=== PATIENT | female | born 1940 | race Caucasian/White ===

== ENCOUNTER 2019-02-16 18:26 | Inpatient (IN) | payer OTHER ==
[2019-02-16] MEDS ORDERED: NA CHLORIDE 0.9% 1,000 ML ONE (20:17)
[2019-02-16 20:32] LABS: Absolute Lymphocytes (CBC) 2.1 K/uL (0.7-4.9); Absolute Monocytes 0.7 K/uL (0.1-1.3); Absolute Neutrophil 4.5 K/uL (1.8-8.0); Basophils % 0.6 % (0-1.3); Eosinophils % 2.9 % (0-4.4); Hematocrit 28.8 % (36.0-45.0); Lymphocytes % 28.4 % (15.3-44.8); MPV 9.9 fL (7.6-11.3); Monocytes % 8.7 % (3.3-12.3); RBC Red Blood Cell Count 2.97 M/uL (3.86-4.86)
[2019-02-16] MEDS ORDERED: LABETALOL 20 MG/4ML SYRINGE IV ONE (20:37)
[2019-02-16 21:03] LABS: Albumin 3.2 g/dL (3.4-5.0); Bilirubin Direct 0.2 mg/dL (0-0.2); Bilirubin Total 0.4 mg/dL (0.2-1.0); Protein, Total 6.6 g/dL (6.4-8.2)
--- NOTE | 2019-02-16 23:36 | ER ---
Nurse's Notes [facility] Name: Lucille Padron Age: 78 yrs Sex: Female : 1940 Arrival Date: 02/16/2019 Time: 18:26 Bed 5 Private MD: Isaias Henson S Diagnosis: Rectal bleeding. Colonic diverticulosis Presentation: 02/16 18:53 Presenting complaint: Patient states: i started Friday, passing blood from my bowel and hj now its blood clots; dark blood; denies abd pain, denies N/V;. Transition of care: patient was not received from another setting of care. Onset of symptoms was February 16, 2019. Risk Assessment: Do you want to hurt yourself or someone else? Patient reports no desire to harm self or others. Initial Sepsis Screen: Does the patient meet any 2 criteria? No. Patient's initial sepsis screen is negative. Does the patient have a suspected source of infection? No. Patient's initial sepsis screen is negative. Care prior to arrival: None. 18:53 Method Of Arrival: Ambulatory 18:53 Acuity: JONATHAN 3 hj Triage Assessment: 18:58 General: Appears in no apparent distress. uncomfortable, Behavior is calm, cooperative, hj appropriate for age. Pain: Complains of pain in abdomen. GI: Reports rectal bleeding, bloody stool. Historical: - Allergies: 18:57 No Known Allergies; hj - Home Meds: 18:57 carvedilol 12.5 mg oral tab 1 tab 2 times per day [Active]; pravastatin 80 mg oral tab hj 1 tab once daily [Active]; metformin 500 mg Oral tab 1 tab 2 times per day [Active]; tramadol 50 mg Oral tab 1 tab every 4-6 hours [Active]; aspirin 81 mg Oral TbEC 1 tab once daily [Active]; paroxetine HCl 40 mg oral tab 1 tab once daily [Active]; ranitidine HCl 150 mg Oral tab 1 tab nightly [Active]; fenofibrate 200 mg oral tab 1 cap once daily [Active]; - PMHx: 18:57 Hypertension; Diabetes - NIDDM; hj - Immunization history:: Adult Immunizations up to date. - Social history:: Smoking status: Patient/guardian denies using tobacco, Patient/guardian denies using alcohol. - Ebola Screening: : Patient negative for fever greater than or equal to 101.5 degrees Fahrenheit, and additional compatible Ebola Virus Disease symptoms Patient denies exposure to infectious person Patient denies travel to an Ebola-affected area in the 21 days before illness onset. Screenin:58 Abuse screen: Denies threats or abuse. Denies injuries from another. Nutritional hj screening: No deficits noted. Tuberculosis screening: No symptoms or risk factors identified. Fall Risk None identified. Assessment: 19:20 General: Appears in no apparent distress. comfortable, Behavior is calm, cooperative, tl2 appropriate for age. Pain: Denies pain. Neuro: Level of Consciousness is awake, alert, obeys commands, Oriented to person, place, time, situation. Cardiovascular: Denies chest pain. Respiratory: Airway is patent Respiratory effort is even, unlabored, Respiratory pattern is regular, symmetrical. GI: Abdomen is non-distended, Reports rectal bleeding, bloody stool, Patient currently denies abdominal pain, diarrhea, nausea, vomiting, pt reports having 3 episodes of bloody stool since Friday. Pt also reports that blood comes out even without having a BM. Derm: Skin is pink, warm \T\ dry. Musculoskeletal: Reports general weakness. 20:00 Reassessment: MD notified of elevated BP, new order see JAN. tl2 20:40 Reassessment: Follow-up BP 132/94, will hold additional 10 mg of Trandate. tl2 21:11 Reassessment: Patient appears in no apparent distress at this time. Patient and/or tl2 family updated on plan of care and expected duration. Pain level reassessed. Patient is alert, oriented x 3, equal unlabored respirations, skin warm/dry/pink. awaiting CT scan, no questions or complaints at this time. 22:02 Reassessment: BP is elevated at this time, will give additional 10 mg of Trandate that tl2 was held previously. 22:53 Reassessment: Patient appears in no apparent distress at this time. Patient and/or tl2 family updated on plan of care and expected duration. Pain level reassessed. Patient is alert, oriented x 3, equal unlabored respirations, skin warm/dry/pink. awaiting CT results. 22:54 Reassessment: notified of elevated BP, no new orders at this time. Pt denies any tl2 pain, headache or dizziness. 02/17 01:19 Reassessment: pt stable for transport to floor. tl2 Vital Signs: 02/16 18:58 Pulse 77; Resp 18; Temp 98.4(O); Pulse Ox 100% on R/A; Weight 79.38 kg; Height 5 ft. 4 hj in. (162.56 cm); Pain 2/10; 19:59 BP 195 / 87; Pulse 74; Resp 18; Pulse Ox 99% on R/A; tl2 20:37 BP 132 / 94; Pulse 68; Resp 18; Pulse Ox 99% on R/A; tl2 21:06 BP 162 / 89; Pulse 68; Resp 18; Pulse Ox 100% on R/A; tl2 22:01 BP 200 / 78; Pulse 68; Resp 18; Pulse Ox 99% on R/A; tl2 22:53 BP 207 / 87; Pulse 75; Resp 18; Pulse Ox 99% ; tl2 23:15 BP 189 / 81; Pulse 70; Resp 18; Pulse Ox 100% on R/A; tl2 02/17 00:42 BP 170 / 68; Pulse 71; Resp 18; Pulse Ox 100% on R/A; tl2 02/16 18:58 Body Mass Index 30.04 (79.38 kg, 162.56 cm) hj ED Course: 02/16 18:26 Patient arrived in ED. as 18:26 Isaias Henson MD is Private Physician. as 18:54 Triage completed. hj 18:58 Arm band placed on left wrist. hj 18:58 Patient has correct armband on for positive identification. Placed in gown. Bed in low hj position. Call light in reach. 19:20 Inserted saline lock: 20 gauge in right antecubital area, using aseptic technique. tl2 Blood collected. 19:46 Chapincito Boyle MD is Attending Physician. pkl 20:03 Sheree Diaz, JOSÉ is Primary Nurse. tl2 20:32 Oral contrast reported to be complete. vm2 22:[address] via stretcher. vm2 22:12 CT completed. Patient tolerated procedure well. Patient moved back from CT. vm2 22:28 CT Abd/Pelvis - W/Contrast In Process Unspecified. EDMS 23:34 Vandana Renae MD is Hospitalizing Provider. pkl 02/17 01:16 No provider procedures requiring assistance completed. Patient admitted, IV remains in ea place. Administered Medications: 02/16 20:09 Drug: NS 0.9% 1000 ml Route: IV; Rate: 125 ml/hr; Site: right antecubital; tl2 20:30 Drug: Trandate 20 mg {Note: gave 10 mg at 2030. will recheck in 10 minutes before tl2 giving additional 10 mg.} Route: IVP; Site: right antecubital; 20:38 Follow up: Foll[place]up BP 132/94, will hold additional 10 mg of trandate. tl2 22:22 Follow up: gave additional 10 mg of Trandate at 2222, will recheck BP in 10 minutes tl2 02/17 00:23 Drug: morphine 2 mg Route: IVP; Site: right antecubital; tl2 01:17 Follow up: Response: No adverse reaction; Pain is decreased ea 00:24 Drug: Zofran 4 mg Route: IVP; Site: right antecubital; tl2 01:00 Follow up: Response: No adverse reaction ea Intake: Outcome: 02/16 23:35 Decision to Hospitalize by Provider. [facility] 02/17 01:17 Condition: stable ea Instructed on the need for admit, Demonstrated understanding of instructions. 01:19 Admitted to Med/surg accompanied by tech, family with patient, via wheelchair, room tl2 230, with chart, Report called to MIROSLAVA Mohan 01:20 Patient left the ED. tl2 Signatures: Dispatcher [employer] EDMS Chapincito Boyle MD MD [facility] Heide Duarte Henry, RN RN Sheree Diaz RN RN 2 Tootie Penaloza [facility] Renetta Bojorquez RN RN ea Corrections: (The following items were deleted from the chart) 02/16 19:01 18:58 Pulse 77bpm; Resp 18bpm; Pulse Ox 100% RA; Temp 98.4F Oral; 79.38 kg; Height 5 hj ft. 4 in.; BMI: 30.0; Pain 2/10; hj 20:00 19:59 Pulse 74bpm; Resp 18bpm; Pulse Ox 99% RA; tl2 tl2
--- NOTE | 2019-02-16 23:36 | EDPHYS ---
Physician Documentation [facility] Name: Lucille Padron Age: 78 yrs Sex: Female : 1940 Arrival Date: 02/16/2019 Time: 18:26 Bed 5 Private MD: Isaias Henson S ED Physician Chapincito Boyle HPI: 02/16 20:07 This 78 yrs old Female presents to ER via Ambulatory with complaints of pkl Bloody Stools. 20:07 The patient presents to the emergency department with rectal bleeding, dark red blood pkl with bowel movement. Onset: The symptoms/episode began/occurred 3 day(s) ago. Abdominal pain: located in the right upper quadrant, left upper quadrant, right lower quadrant and left lower quadrant, that does not radiate. The patient has not experienced similar symptoms in the past. Historical: - Allergies: 18:57 No Known Allergies; hj - Home Meds: 18:57 carvedilol 12.5 mg oral tab 1 tab 2 times per day [Active]; pravastatin 80 mg oral tab hj 1 tab once daily [Active]; metformin 500 mg Oral tab 1 tab 2 times per day [Active]; tramadol 50 mg Oral tab 1 tab every 4-6 hours [Active]; aspirin 81 mg Oral TbEC 1 tab once daily [Active]; paroxetine HCl 40 mg oral tab 1 tab once daily [Active]; ranitidine HCl 150 mg Oral tab 1 tab nightly [Active]; fenofibrate 200 mg oral tab 1 cap once daily [Active]; - PMHx: 18:57 Hypertension; Diabetes - NIDDM; hj - Immunization history:: Adult Immunizations up to date. - Social history:: Smoking status: Patient/guardian denies using tobacco, Patient/guardian denies using alcohol. - Ebola Screening: : Patient negative for fever greater than or equal to 101.5 degrees Fahrenheit, and additional compatible Ebola Virus Disease symptoms Patient denies exposure to infectious person Patient denies travel to an Ebola-affected area in the 21 days before illness onset. ROS: 20:07 Eyes: Negative for injury, pain, redness, and discharge, ENT: Negative for injury, pkl pain, and discharge, Neck: Negative for injury, pain, and swelling, Cardiovascular: Negative for chest pain, palpitations, and edema, Respiratory: Negative for shortness of breath, cough, wheezing, and pleuritic chest pain. 20:07 Abdomen/GI: Positive for abdominal pain, of the right upper quadrant, left upper quadrant, right lower quadrant and left lower quadrant. 20:07 Back: Negative for acute changes. 20:07 : Negative for urinary symptoms. 20:07 MS/extremity: Negative for acute changes. 20:07 Skin: Negative for rash. 20:07 Neuro: Negative for altered mental status. Exam: 20:07 Head/Face: Normocephalic, atraumatic. Eyes: Pupils equal round and reactive to light, pkl extra-ocular motions intact. Lids and lashes normal. Conjunctiva and sclera are non-icteric and not injected. Cornea within normal limits. Periorbital areas with no swelling, redness, or edema. ENT: Nares patent. No nasal discharge, no septal abnormalities noted. Tympanic membranes are normal and external auditory canals are clear. Oropharynx with no redness, swelling, or masses, exudates, or evidence of obstruction, uvula midline. Mucous membranes moist. Neck: Trachea midline, no thyromegaly or masses palpated, and no cervical lymphadenopathy. Supple, full range of motion without nuchal rigidity, or vertebral point tenderness. No Meningismus. Chest/axilla: Normal chest wall appearance and motion. Nontender with no deformity. No lesions are appreciated. Cardiovascular: Regular rate and rhythm with a normal S1 and S2. No gallops, murmurs, or rubs. Normal PMI, no JVD. No pulse deficits. Respiratory: Lungs have equal breath sounds bilaterally, clear to auscultation and percussion. No rales, rhonchi or wheezes noted. No increased work of breathing, no retractions or nasal flaring. 20:07 Abdomen/GI: Bowel sounds: normal, Palpation: soft, mild abdominal tenderness, in all quadrants, Rectal exam: Stool: guaiac positive, the exam is chaperoned by the nurse. 20:07 Back: Exam negative for acute changes. 20:07 : Exam negative for acute changes. 20:07 Musculoskeletal/extremity: Exam is negative for acute changes. 20:07 Skin: Exam negative for rash. 20:07 Neuro: Exam negative for acute changes. Vital Signs: 18:58 Pulse 77; Resp 18; Temp 98.4(O); Pulse Ox 100% on R/A; Weight 79.38 kg; Height 5 ft. 4 hj in. (162.56 cm); Pain 2/10; 19:59 BP 195 / 87; Pulse 74; Resp 18; Pulse Ox 99% on R/A; tl2 20:37 BP 132 / 94; Pulse 68; Resp 18; Pulse Ox 99% on R/A; tl2 21:06 BP 162 / 89; Pulse 68; Resp 18; Pulse Ox 100% on R/A; tl2 22:01 BP 200 / 78; Pulse 68; Resp 18; Pulse Ox 99% on R/A; tl2 22:53 BP 207 / 87; Pulse 75; Resp 18; Pulse Ox 99% ; tl2 23:15 BP 189 / 81; Pulse 70; Resp 18; Pulse Ox 100% on R/A; tl2 02/17 00:42 BP 170 / 68; Pulse 71; Resp 18; Pulse Ox 100% on R/A; tl2 02/16 18:58 Body Mass Index 30.04 (79.38 kg, 162.56 cm) MDM: 02/16 19:46 Patient medically screened. pkl 23:33 Data reviewed: vital signs, nurses notes, lab test result(s), radiologic studies, CT pkl scan. ED course: Talked to Dr. Renae, will admit. 02/16 19:56 Order name: Basic Metabolic Panel; Complete Time: 21:16 pkl 02/16 19:56 Order name: CBC with Diff; Complete Time: 21:16 pkl 02/16 19:56 Order name: Creatinine for Radiology; Complete Time: 21:16 pkl 02/16 19:56 Order name: Hepatic Function; Complete Time: 21:16 pkl 02/16 19:56 Order name: Lipase; Complete Time: 21:16 pkl 02/16 19:56 Order name: Type And Screen pkl 02/16 21:29 Order name: ABO/RH no charge; Complete Time: 23:32 EDMS 02/17 00:23 Order name: Basic Metabolic Panel EDMS 02/17 00:23 Order name: Basic Metabolic Panel EDMS 02/17 00:23 Order name: Basic Metabolic Panel EDMS 02/17 00:23 Order name: CBC with Automated Diff EDMS 02/17 00:23 Order name: CBC with Automated Diff EDMS 02/17 00:23 Order name: CBC with Automated Diff EDMS 02/17 00:25 Order name: CBC with Automated Diff EDMS 02/16 19:58 Order name: CT Abd/Pelvis - W/Contrast pkl 02/17 00:23 Order name: CONS Pharmacy Consult EDMS 02/17 00:23 Order name: CONS Physician Consult EDMS 02/17 00:23 Order name: EKG Electrocardiogram EDMS 02/17 00:23 Order name: EKG Electrocardiogram EDMS 02/17 00:23 Order name: EKG Electrocardiogram EDMS 02/17 00:23 Order name: EKG Electrocardiogram EDMS 02/17 00:23 Order name: EKG Electrocardiogram EDMS 02/17 00:23 Order name: EKG Electrocardiogram EDMS 02/17 00:23 Order name: EKG Electrocardiogram EDMS 02/17 00:23 Order name: EKG Electrocardiogram EDMS 02/17 00:23 Order name: EKG Electrocardiogram EDMS 02/16 19:56 Order name: IV Saline Lock; Complete Time: 20:00 pkl 02/16 19:56 Order name: Labs collected and sent; Complete Time: 20:00 pkl 02/17 00:23 Order name: EKG Electrocardiogram EDMS 02/17 00:23 Order name: EKG Electrocardiogram EDMS Administered Medications: 20:09 Drug: NS 0.9% 1000 ml Route: IV; Rate: 125 ml/hr; Site: right antecubital; tl2 20:30 Drug: Trandate 20 mg {Note: gave 10 mg at 2030. will recheck in 10 minutes before tl2 giving additional 10 mg.} Route: IVP; Site: right antecubital; 20:38 Follow up: Follwup BP 132/94, will hold additional 10 mg of trandate. tl2 22:22 Follow up: gave additional 10 mg of Trandate at 2222, will recheck BP in 10 minutes tl2 02/17 00:23 Drug: morphine 2 mg Route: IVP; Site: right antecubital; tl2 01:17 Follow up: Response: No adverse reaction; Pain is decreased ea 00:24 Drug: Zofran 4 mg Route: IVP; Site: right antecubital; tl2 01:00 Follow up: Response: No adverse reaction ea Disposition: 02/16/19 23:35 Hospitalization ordered by Vandana Renae for Inpatient Admission. Preliminary diagnosis is Rectal bleeding. Colonic diverticulosis. - Bed requested for Telemetry/MedSurg (Inpatient). - Status is Inpatient Admission. tl2 - Condition is Stable. - Problem is new. - Symptoms are unchanged. UTI on Admission? No Signatures: Dispatcher [employer] EDMS Chapincito Boyle MD MD pkl Gary Buitrago, RN RN Migdalia Lopez RN RN Sheree Diaz RN RN [facility] Renetta Bojorquez RN RN Corrections: (The following items were deleted from the chart) 00:02/16 23:35 Hospitalization Ordered by Vandana Renae MD for Inpatient Admission. cg Preliminary diagnosis is Rectal bleeding. Colonic diverticulosis. Bed requested for Telemetry/MedSurg (Inpatient). Status is Inpatient Admission. Condition is Stable. Problem is new. Symptoms are unchanged. UTI on Admission? No. pkl 02/17 01:20 00:02/16/2019 23:35 Hospitalization Ordered by Vandana Renae MD for Inpatient tl2 Admission. Preliminary diagnosis is Rectal bleeding. Colonic diverticulosis. Bed requested for Telemetry/MedSurg (Inpatient). Status is Inpatient Admission. Condition is Stable. Problem is new. Symptoms are unchanged. UTI on Admission? No. cg
[2019-02-17] MEDS ORDERED: ONDANSETRON 4 MG/2 ML VIAL IV PRN (00:16)
[2019-02-17] MEDS ORDERED: MORPHINE 2 MG/ML SYR IV PRN (00:16)
[2019-02-17] MEDS ORDERED: MORPHINE 2 MG/ML SYR ONE (00:21)
[2019-02-17] MEDS ORDERED: ONDANSETRON 4 MG/2 ML VIAL ONE (00:21)
[2019-02-17] MEDS: PANTOPRAZOLE INJ 80 MG in NA CHLORIDE 0.9% 250 ML IV SCH ×3 (00:41→21:03)
[2019-02-17] MEDS: NA CHLORIDE 0.9% 1,000 ML IV SCH ×2 (00:41→14:20)
[2019-02-17] MEDS ORDERED: PANTOPRAZOLE 40 MG INJ ONE (00:48)
[2019-02-17] MEDS ORDERED: NA CHLORIDE 0.9% 250 ML IV SCH (01:00)
[2019-02-17 01:26] VITALS: BMI 30.2
[2019-02-17 04:24] LABS: Absolute Lymphocytes (CBC) 2.1 K/uL (0.7-4.9); Absolute Monocytes 0.7 K/uL (0.1-1.3); Absolute Neutrophil 4.1 K/uL (1.8-8.0); Basophils % 0.7 % (0-1.3); Eosinophils % 3.5 % (0-4.4); Hematocrit 22.8 % (36.0-45.0); Lymphocytes % 28.6 % (15.3-44.8); MPV 9.7 fL (7.6-11.3); Monocytes % 10.2 % (3.3-12.3); RBC Red Blood Cell Count 2.37 M/uL (3.86-4.86)
[2019-02-17 04:35] LABS: Potassium 4.1 mmol/L (3.5-5.1)
[2019-02-17 08:27] LABS: Urine Appearance CLEAR; Urine Bilirubin NEGATIVE (NEG); Urine Blood NEGATIVE (NEG); Urine Color YELLOW; Urine Glucose NEGATIVE (NEG); Urine Protein NEGATIVE (NEG); Urine Specific Gravity >=1.030 (1.005-1.030); Urine Urobilinogen 0.2 mg/dL (0.2-1.0)
[2019-02-17 08:30] LABS: Urine Microscopic Reflex ORDER UMIC
--- NOTE | 2019-02-17 09:18 | P.HP ---
Certification for Inpatient Patient admitted to: Inpatient With expected LOS: >2 Midnights Patient will require the following post-hospital care: None Practitioner: I am a practitioner with admitting privileges, knowledge of patient current condition, hospital course, and medical plan of care. Services: Services provided to patient in accordance with Admission requirements found in Title 42 Section 412.3 of the Code of Federal Regulations Patient History Date of Service: 02/17/19 Reason for admission: GI bleeding History of Present Illness: Patient is a 78yo who is admitted to the hospital with lower GI bleeding. Patient had bright red blood per rectum. This is been going on for the last few days. She says she noticed it on Friday. It progressed on Friday as well. She came to the emergency room for further evaluation. This is never happened to her before. In the emergency room, her hemoglobin was 9.6. Her blood pressure was stable. Hemodynamically she was stable as well. She was admitted to the hospital because she continued to have bright red blood per rectum in the emergency room. We will get gastroenterology consultation as well. Allergies No Known Allergies Allergy (Verified 02/17/19 01:26) Home Medications: Aspirin [Aspirin EC 81 MG] 1 mg PO DAILY 02/17/19 Carvedilol 12.5 mg PO BID 02/17/19 Fenofibrate,Micronized [Fenofibrate] 200 mg PO DAILY 02/17/19 Metformin HCl 500 mg PO BID 02/17/19 PARoxetine HCl [Paroxetine HCl] 40 mg PO DAILY 02/17/19 Pravastatin Sodium 80 mg PO DAILY 02/17/19 Ranitidine HCl [Zantac] 150 mg PO DAILY 02/17/19 traMADol HCL [Ultram*] 50 mg PO Q4HP PRN 02/17/19 - Past Medical/Surgical History Has patient received pneumonia vaccine in the past: Yes Diabetic: Yes -: HTN -: Diabetes -: eye surgery -: cholecystectomy -: partial hysterecomy - Family History Father Family History: Reviewed- Non-Contributory - Social History Smoking Status: Never smoker Alcohol use: No CD- Drugs: No Caffeine use: Yes Place of Residence: Home Review of Systems 10-point ROS is otherwise unremarkable Physical Examination - Vital Signs Temperature: 98.4 F Blood Pressure: 150/67 Pulse: 71 Respirations: 18 Pulse Ox (%): 99 - Physical Exam General: Alert, In no apparent distress, Oriented x3 HEENT: Atraumatic, PERRLA, Mucous membr. moist/pink, EOMI, Sclerae nonicteric Neck: Supple, 2+ carotid pulse no bruit, No LAD, Without JVD or thyroid abnormality Respiratory: Clear to auscultation bilaterally, Normal air movement Cardiovascular: Regular rate/rhythm, Normal S1 S2, No murmurs Gastrointestinal: Normal bowel sounds, Soft and benign, Non-distended, No tenderness Musculoskeletal: No clubbing, No swelling, No tenderness Integumentary: No rashes Neurological: Normal gait, Normal speech, Normal strength at 5/5 x4 extr, Normal tone, Sensation intact, Cranial nerves 3-12 intact, Normal affect Lymphatics: No axilla or inguinal lymphadenopathy - Studies Laboratory Data (last 24 hrs) 02/17/19 00:23: WBC Cancelled, Hgb Cancelled, Hct Cancelled, Plt Count Cancelled 02/16/19 19:45: Creatinine 1.26 02/16/19 19:45: WBC 7.5, Hgb 9.6 L, Hct 28.8 L, Plt Count 224 02/16/19 19:45: Sodium 144, Potassium 4.0, BUN 26 H, Creatinine 1.27, Glucose 120 H, Total Bilirubin 0.4, AST 27, ALT 22, Alkaline Phosphatase 49, Lipase 221 Assessment & Plan - Problems (Diagnosis) (1) GIB (gastrointestinal bleeding) Current Visit: Yes Status: Acute (2) HTN (hypertension) Current Visit: Yes Status: Acute (3) DM2 (diabetes mellitus, type 2) Current Visit: Yes Status: Acute - Plan Plan: 1. Continue with IV hydration and PPI drip 2. Strict blood pressure and blood sugar control 3. Continue with pain control 4. NPO 5. GI consultation 6. Serial H&H, and we will monitor LFTs and lipase along with electrolytes. 7. GI and DVT prophylaxis Discharge Plan: Home Plan to discharge in: Greater than 2 days - Advance Directives Does patient have a Living Will: Yes Does patient have a Durable POA for Healthcare: No - Code Status/Comfort Care Code Status Assessed: Yes Code Status: Full Code Critical Care: No Time Spent Managing PTS Care (In Minutes): 40
[2019-02-17 09:30] LABS: Urine Bacteria NONE SEEN /HPF (<20); Urine Culture Reflex Order REFLEXED; Urine Mucus NS /HPF (NONE SEEN); Urine RBC <5 /HPF (NONE SEEN)
[2019-02-17 09:39] LABS: Hematocrit 22.3 % (36.0-45.0)
--- NOTE | 2019-02-17 11:50 | RAD REPORT ---
EXAM DESCRIPTION: CT - Abdomen Pelvis W Contrast - 02/17/2019 4:22 am CLINICAL HISTORY: The patient is 78 years old and is Female; rectal bleeding TECHNIQUE: Axial computed tomography images of the abdomen and pelvis with intravenous contrast. S agittal and coronal reformatted images were created and reviewed. This CT exam was performed using one or more of the following dose reduction techniques: automated exposure control, adjustment of t he mA and/or kV according to patient size, and/or use of iterative reconstruction technique. COMPARISON: No relevant prior studies available. FINDINGS: LUNG BASES: Unremarkable. No mass. No consolidation. MEDIASTINUM: A small hiatal hernia is present. ABDOMEN: LIVER: Unremarkable. No mass. GALLBLADDER AND BILE DUCTS: Surgical clips are present in the right upper quadrant, consistent w ith previous cholecystectomy. PANCREAS: The pancreas is atrophic. SPLEEN: Unremarkable. ADRENALS: Unremarkable. No mass. KIDNEYS AND URETERS: Unremarkable. No solid mass. No hydronephrosis. STOMACH AND BOWEL: The stomach is distended with oral contrast. A proximal duodenal diverticulum is noted without surrounding inflammation. Contrast is present throughout the small bowel which is n ormal in caliber. Contrast and stool are present throughout the colon. There is no mucosal thickening or evidence of bowel obstruction. Scattered colonic diverticula are present without surrounding infl ammation. PELVIS: APPENDIX: The appendix is normal in caliber without surrounding inflammation. BLADDER: The bladder is not well distended. REPRODUCTIVE: The patient is status post hysterectomy. ABDOMEN and PELVIS: INTRAPERITONEAL SPACE: Unremarkable. No free air. No significant fluid collection. BONES/JOINTS: Mild multilevel degenerative change of the spine is present. SOFT TISSUES: There are small bilateral fat containing inguinal hernias. VASCULATURE: Atherosclerosis of the vasculature is present. The vessels are normal in caliber. No abdominal aortic aneurysm. LYMPH NODES: Unremarkable. No enlarged lymph nodes. IMPRESSION: 1. Colonic diverticulosis. No bowel obstruction. No findings to suggest diverticulitis . 2. Chronic findings as detailed above. Electronically signed by: Kristal Aguirre MD 02/16/2019 10:37 PM CDT Due to temporary technical issues with the PACS/Fluency reporting system, reports are being signed by the in house radiologist as a courtesy to ensure prompt reporting. The interpreting radiologist is f ully responsible for the content of the report.
[2019-02-17] MEDS ORDERED: NA CHLORIDE 0.9% 250 ML ONE (12:19)
[2019-02-17 12:29] LABS: Hematocrit 25.1 % (36.0-45.0)
[2019-02-17 13:22] LABS: Protime INR 1.07
[2019-02-17] MEDS: CARVEDILOL 12.5 MG TAB PO SCH (20:58)
[2019-02-17] MEDS: ATORVASTATIN 10 MG TAB PO SCH (20:58)
[2019-02-17] MEDS ORDERED: FUROSEMIDE 20 MG/ 2ML VIAL IV ONE (21:52)
[2019-02-17] MEDS ORDERED: cloNIDine HCl 0.1 MG TAB PO ONE (21:53)
[2019-02-18] MEDS ORDERED: NA CHLORIDE 0.9% 250 ML ONE (01:27)
[2019-02-18] MEDS ORDERED: FUROSEMIDE 20 MG/ 2ML VIAL IV ONE (01:53)
[2019-02-18] MEDS: NA CHLORIDE 0.9% 1,000 ML IV SCH (04:52)
[2019-02-18] MEDS ORDERED: HEPARIN 500 UNIT/5 ML SYR IV ONE (05:56)
[2019-02-18 06:18] LABS: Absolute Lymphocytes (CBC) 1.8 K/uL (0.7-4.9); Absolute Monocytes 0.7 K/uL (0.1-1.3); Absolute Neutrophil 3.6 K/uL (1.8-8.0); Basophils % 0.9 % (0-1.3); Eosinophils % 3.2 % (0-4.4); Lymphocytes % 27.9 % (15.3-44.8); MPV 9.8 fL (7.6-11.3); Monocytes % 11.4 % (3.3-12.3)
[2019-02-18 06:58] LABS: Anisocytosis 1+; Blood Morphology Comment NOTED (NOT SEEN); Platelet Estimate ADEQ; Urine White Blood Cell Casts OK
[2019-02-18] MEDS: PANTOPRAZOLE INJ 80 MG in NA CHLORIDE 0.9% 250 ML IV SCH ×4 (07:00→23:39)
[2019-02-18 08:41] LABS: Potassium 4.1 mmol/L (3.5-5.1)
[2019-02-18] MEDS ORDERED: HOME MED 1 EA UNK (Fenofibrate,Micronized [Fenofibrate] 200 MG) PO SCH (09:00)
--- NOTE | 2019-02-18 09:45 | RAD REPORT ---
EXAM DESCRIPTION: NM - GI Blood Loss Imaging - 02/18/2019 9:24 am CLINICAL HISTORY: Gastrointestinal bleeding COMPARISON: None. TECHNIQUE: The patient was administered 26.4 millicuries technetium labeled red blood cells. Dynamic images of the abdomen and pelvis were obtained for 60 minutes FINDINGS: No abnormal radiotracer activity is seen within the bowel. No abnormality displayed IMPRESSION: No evidence of active gastrointestinal bleeding during the examination
[2019-02-18] MEDS: PARoxetine HCl 10 MG TAB PO SCH (10:48)
[2019-02-18] MEDS: ACETAMINOPHEN 500 MG TAB PO PRN ×2 (10:48→16:58)
[2019-02-18] MEDS: METOPROLOL TAR 50 MG TAB PO SCH ×2 (10:49→20:51)
[2019-02-18] MEDS: CARVEDILOL 12.5 MG TAB PO SCH ×2 (10:49→20:51)
[2019-02-18] MEDS: RANITIDINE 150 MG TABLET PO SCH (10:49)
[2019-02-18] MEDS: METOCLOPRAMIDE 10 MG/2mL INJ IV SCH ×3 (10:50→23:38)
[2019-02-18] MEDS ORDERED: GOLYTELY 4000 ML PO SCH (11:00)
[2019-02-18] MEDS ORDERED: MAGNESIUM CITRATE 300 ML BOT PO SCH (11:00)
--- NOTE | 2019-02-18 11:03 | RAD REPORT ---
EXAM DESCRIPTION: Shoulder Right 2 View - 02/18/2019 10:32 am CLINICAL HISTORY: Right shoulder pain COMPARISON: None. TECHNIQUE: Internal and external rotation views of the right shoulder were obtained. FINDINGS: There is no fracture or dislocation. Degenerative cystic changes are present in the super olateral humeral head. AC joint degenerative changes are present primarily involving the undersurface of the acromion. Acromial humeral joint space is significantly narrowed and the patient may have chr onic supraspinatus rotator cuff tear. No suspicious soft tissue calcifications. No significant findin g in the upper right chest or rib cage. IMPRESSION: No fracture, dislocation or acute bone or joint finding of the right shoulder. AC joint degenerative changes and acromion degenerative changes are present. Suspected chronic full-thickness rotator cuff tear.
--- NOTE | 2019-02-18 11:27 | P.PN ---
Subjective Date of Service: 02/18/19 Chief Complaint: GI bleeding Patient seen and examined at bedside with RN. Chart reviewed. Case discussed with GI. Patient is currently planned for colonoscopy tomorrow. Still continues to have blood while wiping after a bowel movement or urination. Hemoglobin stable at this time. Denies having a shortness of breath or chest pain at this time Review of Systems 10-point ROS is otherwise unremarkable Physical Examination - Vital Signs Temperature: 96.8 F Blood Pressure: 148/66 Pulse: 66 Respirations: 18 Pulse Ox (%): 98 - Physical Exam General: Alert, In no apparent distress HEENT: Atraumatic, PERRLA, EOMI Neck: Supple, JVD not distended Respiratory: Clear to auscultation bilaterally, Normal air movement Cardiovascular: Regular rate/rhythm, Normal S1 S2 Gastrointestinal: Normal bowel sounds, No tenderness Musculoskeletal: Tenderness (Right Shoulder Tenderness. Limited ROM ) Integumentary: No rashes Neurological: Normal speech, Normal tone, Normal affect Lymphatics: No axilla or inguinal lymphadenopathy - Studies Medications List Reviewed: Yes Assessment And Plan - Current Problems (Diagnosis) (1) GIB (gastrointestinal bleeding) Current Visit: Yes Status: Acute Plan: Acute blood loss anemia most likely secondary to lower GI bleeding secondary to hemorrhoids -GI consulted. Appreciated recommendations -RBC scan negative for acute GI bleeding -patient is scheduled for colonoscopy tomorrow -IV Protonix drip till then -monitor H&H closely and transfuse as necessary -currently status post 2 PRBC Qualifiers: GI bleed type/associated pathology: melena Qualified Code(s): K92.1 - Melena (2) Shoulder pain Current Visit: Yes Status: Chronic Plan: Patient complaining of right shoulder pain -x-ray consistent with chronic rotator cuff -physical therapy consulted will provide sling as well Qualifiers: Chronicity: chronic Laterality: right Qualified Code(s): M25.511 - Pain in right shoulder; G89.29 - Other chronic pain (3) DM2 (diabetes mellitus, type 2) Current Visit: Yes Status: Chronic Plan: Accu-Cheks and insulin sliding scale Qualifiers: 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
[2019-02-18 14:41] LABS: Hematocrit 30.6 % (36.0-45.0)
[2019-02-18] MEDS ORDERED: HYDRALAZINE HCL 20 MG/ML VIAL IV ONE (16:47)
[2019-02-18] MEDS: ATORVASTATIN 10 MG TAB PO SCH (20:52)
--- NOTE | 2019-02-19 06:17 | EKG ---
Test Date: 2019-02-18 Test Time: 11:50:44 College Service Officer: ANTHONY MEASUREMENT RESULTS: Intervals: Rate: 71 SC: 144 QRSD: 82 QT: 422 QTc: 458 [place]: P: 34 SC: 144 QRS: 43 T: 35 INTERPRETIVE STATEMENTS: Normal sinus rhythm Normal ECG Compared to ECG 11/27/2011 02:25:28 No significant changes Electronically Signed On 02-19-19 06:16:18 CDT by Pancho Cook
[2019-02-19] MEDS: FENOFIBRATE 200 MG PO SCH (08:00)
[2019-02-19] MEDS: METOPROLOL TAR 50 MG TAB PO SCH ×2 (08:44→20:49)
[2019-02-19] MEDS: CARVEDILOL 12.5 MG TAB PO SCH ×2 (08:44→20:49)
[2019-02-19] MEDS: RANITIDINE 150 MG TABLET PO SCH (08:46)
[2019-02-19] MEDS: PARoxetine HCl 10 MG TAB PO SCH (08:46)
--- NOTE | 2019-02-19 13:26 | P.PN ---
Subjective Date of Service: 02/19/19 Chief Complaint: GI bleeding Patient seen and examined at bedside with RN. Chart reviewed. Case discussed with GI. Patient is currently planned for colonoscopy today. No blood noted in urination and BM. Hemoglobin stable at this time. Denies having a shortness of breath or chest pain at this time Review of Systems 10-point ROS is otherwise unremarkable Physical Examination - Vital Signs Temperature: 97.4 F Blood Pressure: 195/86 Pulse: 76 Respirations: 16 Pulse Ox (%): 95 - Physical Exam General: Alert, In no apparent distress HEENT: Atraumatic, PERRLA, EOMI Neck: Supple, JVD not distended Respiratory: Clear to auscultation bilaterally, Normal air movement Cardiovascular: Regular rate/rhythm, Normal S1 S2 Gastrointestinal: Normal bowel sounds, No tenderness Musculoskeletal: No tenderness Integumentary: No rashes Neurological: Normal speech, Normal tone, Normal affect Lymphatics: No axilla or inguinal lymphadenopathy - Studies Medications List Reviewed: Yes Assessment And Plan - Current Problems (Diagnosis) (1) GIB (gastrointestinal bleeding) Current Visit: Yes Status: Acute Plan: Acute blood loss anemia most likely secondary to lower GI bleeding secondary to hemorrhoids -GI consulted. Appreciated recommendations -RBC scan negative for acute GI bleeding -patient is scheduled for colonoscopy today -IV Protonix BID now -monitor H&H closely and transfuse as necessary -currently status post 2 PRBC Qualifiers: GI bleed type/associated pathology: melena Qualified Code(s): K92.1 - Melena (2) Shoulder pain Current Visit: Yes Status: Chronic Plan: Patient complaining of right shoulder pain -x-ray consistent with chronic rotator cuff -physical therapy consulted will provide sling as well -MRI ordered Qualifiers: Chronicity: chronic Laterality: right Qualified Code(s): M25.511 - Pain in right shoulder; G89.29 - Other chronic pain (3) DM2 (diabetes mellitus, type 2) Current Visit: Yes Status: Chronic Plan: Accu-Cheks and insulin sliding scale Qualifiers: 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
[2019-02-19] MEDS ORDERED: NA CHLORIDE 0.9% 1,000 ML ONE (13:51)
[2019-02-19] MEDS ORDERED: LIDOCAINE 1% MPF 5 ML VIAL ONE (15:37)
[2019-02-19] MEDS ORDERED: PROPOFOL 200 MG/20 ML VIAL IV ONE (15:37)
--- NOTE | 2019-02-19 20:04 | RAD REPORT ---
EXAM DESCRIPTION: MRI - Shoulder Rt Wo Cont - 02/19/2019 6:10 pm CLINICAL HISTORY: Shoulder pain, fall COMPARISON: None. TECHNIQUE: Axial proton density fat saturation, parasagittal T1 weighted and para coronal proton den sity, T2 and T2 fat saturation weighted sequences were obtained. FINDINGS: Exam has significant motion degradation limitation. No occult fracture, bone bruise or marrow replacing process. Mild marginal spurring seen at the humer al head. AC joint degenerative changes are present. Acromial humeral joint space is effaced. There is degenerative concave contour to the undersurface of the acromion. AC joint degenerative changes are present with capsular hypertrophy and a small inferiorly directed spur. Full-thickness supraspinatus rotator cuff tear is present with the tendon retracted several cm to the AC joint level. Subscapularis and infraspinatus tendons are intact. Biceps tendon is difficult to follow along its co urse due to motion. Glenoid labrum degenerative changes are present. IMPRESSION: Full-thickness supraspinatus rotator cuff tear with no remnant tendon at the insertion. Tendon is retracted to the AC joint line level. AC joint and acromion degenerative changes. Acromial humeral joint space is effaced. No fracture or acute bone finding.
[2019-02-19] MEDS: ATORVASTATIN 10 MG TAB PO SCH (20:49)
[2019-02-19] MEDS: PANTOPRAZOLE 40 MG INJ IVP SCH (20:49)
[2019-02-19] MEDS: SODIUM CHLORIDE 0.9% 10ML INJ IV SCH (20:49)
--- NOTE | 2019-02-19 21:04 | ENDO RPT ---
[address], [address] EGD PROCEDURE REPORT EXAM DATE: 02/19/2019 PATIENT NAME: Lucille Padron MR#: [id number] BIRTHDATE: 1940 ATTENDING: Devante Slaughter Dr STATUS: inpatient - [facility] EXECUTIVE MANAGER: Valencia Treviño and Sandra Rascon RN INDICATIONS: The patient is a 78 yr old Female here for an EGD due to mid epigastric abdominal pain and GERD PROCEDURE PERFORMED: EGD with biopsy MEDICATIONS: Per Anesthesia. TOPICAL ANESTHETIC: none CONSENT: The patient understands the risks and benefits of the procedure and understands that these risks include, but are not limited to: sedation, allergic reaction, infection, perforation and/or bleeding. Alternative means of evaluation and treatment include, among others: physical exam, x-rays, and/or surgical intervention. The patient elects to proceed with this endoscopic procedure. DESCRIPTION OF PROCEDURE: During intra-op preparation period all mechanical medical equipment was checked for proper function. Hand hygiene and appropriate measures for infection prevention was taken. Procedure, possible complications, and alternatives including but not limited to the possibility of bleeding, perforation, tear, infection, sepsis, need for surgery, need for blood transfusion, and anesthesia related complications were explained to the patient. After the risks, benefits and alternatives of the procedure were thoroughly explained, Informed consent was verified, confirmed and timeout was successfully executed by the treatment team. The patient was placed in the left lateral position. The patient was anesthetized with topical anesthesia. Through the anesthetized oropharyngeal area, the scope was passed without any difficulty. The [id number] ([id number]) endoscope was introduced through the mouth and advanced to the second portion of the duodenum. Retroflexed views revealed no abnormalities. The gastroscope was then slowly withdrawn and removed. The upper, middle, and distal third of the esophagus were carefully inspected and no abnormalities were noted. The z-line was well seen at the GEJ. The endoscope was pushed into the fundus which was normal including a retroflexed view. The antrum, first and second part of the duodenum were unremarkable. Multiple biopsies were obtained and sent to pathology. The stomach was entered and closely examined. The antrum, angularis, and lesser curvature were well visualized, including a retroflexed view of the cardia and fundus. The stomach wall was normally distensable. The scope passed easily through the pylorus into the duodenum. Multiple biopsies were obtained and sent to pathology. ADVERSE EVENTS: There were no complications. IMPRESSIONS: 1. Normal EGD 2. Gastric biopsies for non-ulcer dyspepsia RECOMMENDATIONS: await biopsy results REPEAT EXAM: Devante Slaughter Dr eSigned: Devante Slaughter Dr 02/19/2019 4:15 PM cc: CPT CODES: ICD9 CODES: PATIENT NAME: Lucille aPdron MR#: [id number]
--- NOTE | 2019-02-19 21:04 | ENDO RPT ---
[address], [address] COLONOSCOPY PROCEDURE REPORT EXAM DATE: 02/19/2019 PATIENT NAME: Lucille Padron MR #: [id number] BIRTHDATE: 1940 ATTENDING: Devante Slaughter Dr STATUS: inpatient - 7 PRODUCT OPERATIONS ASSOCIATE: Valencia Treviño and Sandra Rascon RN INDICATIONS: The patient is a 78 yr old Female here for a colonoscopy due to hematochezia and RLQ/LLQ abdominal pain PROCEDURE PERFORMED: Colonoscopy MEDICATIONS: Per Anesthesia. ESTIMATED BLOOD LOSS: None CONSENT: The patient understands the risks and benefits of the procedure and understands that these risks include, but are not limited to: sedation, allergic reaction, infection, perforation and/or bleeding. Alternative means of evaluation and treatment include, among others: physical exam, x-rays, and/or surgical intervention. The patient elects to proceed with this endoscopic procedure. DESCRIPTION OF PROCEDURE: During intra-op preparation period all mechanical medical equipment was checked for proper function. Hand hygiene and appropriate measures for infection prevention was taken. Procedure, possible complications, alternatives including, but not limited to possibility of bleeding, perforation, tear, infection, sepsis, need for surgery, need for blood transfusion, were explained to the patient. After the risks, benefits and alternatives of the procedure were thoroughly explained, Informed consent was verified, confirmed and timeout was successfully executed by the treatment team. The patient was placed in the left lateral position. A digital rectal exam was performed and revealed external hemorrhoids. After appropriate level of anesthesia, the scope was passed. The [id number] ([id number]) and [id number] ([id number]) endoscope was introduced through the anus and advanced to the terminal ileum which was intubated for a short distance. The quality of the prep was fair. The instrument was then slowly withdrawn as the colon was fully examined. Scope withdrawal time was 8 minutes. COLON FINDINGS: Mild diverticulosis was noted in the left colon. Small internal and external hemorrhoids were found. Retroflexed views revealed no abnormalities. The scope was then completely withdrawn from the patient and the procedure terminated. ADVERSE EVENTS: There were no complications. IMPRESSIONS: 1. Mild diverticulosis in the left colon 2. Small internal and external hemorrhoids 3. Intubation to terminal ileum RECOMMENDATIONS: 1. hemorrhoidal hygiene 2. fiber rich diet 3. Small Bowel Follow Through 4. pillcam / capsule endoscopy RECALL: Devante Slaughter Dr eSigned: Devante Slaughter Dr 02/19/2019 4:27 PM cc: CPT CODES: ICD9 CODES: 455.5 External hemorrhoids with other complication PATIENT NAME: Lucille Padron MR#: [id number]
[2019-02-19 21:36] VITALS: O2SAT 96
[2019-02-20] MEDS: CARVEDILOL 12.5 MG TAB PO SCH (05:27)
[2019-02-20 09:20] VITALS: BP 156/72; TEMP 96.8
[2019-02-20] MEDS: PARoxetine HCl 10 MG TAB PO SCH (09:41)
[2019-02-20] MEDS: METOPROLOL TAR 50 MG TAB PO SCH (09:41)
[2019-02-20] MEDS: PANTOPRAZOLE 40 MG INJ IVP SCH (09:42)
[2019-02-20] MEDS: FENOFIBRATE 200 MG PO SCH (09:42)
[2019-02-20] MEDS: SODIUM CHLORIDE 0.9% 10ML INJ IV SCH (09:43)
--- NOTE | 2019-02-20 11:38 | P.DS ---
Admission Date: 02/17/19 Discharge Date: 02/20/19 Disposition: ROUTINE DISCHARGE Discharge Condition: GOOD Reason for Admission: GI bleeding Consultations: GI Procedures: Colonoscopy - Problems (1) GIB (gastrointestinal bleeding) Current Visit: Yes Status: Acute Qualifiers: GI bleed type/associated pathology: diverticulosis Qualified Code(s): K57.91 - Diverticulosis of intestine, part unspecified, without perforation or abscess with bleeding (2) Shoulder pain Current Visit: Yes Status: Chronic Qualifiers: Chronicity: chronic Laterality: right Qualified Code(s): M25.511 - Pain in right shoulder; G89.29 - Other chronic pain (3) DM2 (diabetes mellitus, type 2) Current Visit: Yes Status: Chronic Qualifiers: Diabetes mellitus fci insulin use: without termite inspector use Diabetes mellitus complication status: without complication Qualified Code(s): E11.9 - Type 2 diabetes mellitus without complications (4) HTN (hypertension) Current Visit: Yes Status: Chronic Qualifiers: Hypertension type: essential hypertension Qualified Code(s): I10 - Essential (primary) hypertension Brief History of Present Illness: Patient is a 78yo who is admitted to the hospital with lower GI bleeding. Patient had bright red blood per rectum. This is been going on for the last few days. She says she noticed it on Friday. It progressed on Friday as well. She came to the emergency room for further evaluation. This is never happened to her before. In the emergency room, her hemoglobin was 9.6. Her blood pressure was stable. Hemodynamically she was stable as well. She was admitted to the hospital because she continued to have bright red blood per rectum in the emergency room. We will get gastroenterology consultation as wel Hospital Course: Overall during the hospital stay patient remained stable Patient was initially admitted to the hospital for bright red blood per rectum. GI was consulted. Patient was prepped for colonoscopy. Initial hemoglobin was less than 7 and patient was transfused total of 2 units while here in the hospital. Patient's hemoglobin remained stable after transfusion. Patient was also started on IV Protonix while here in the hospital. After patient was hemodynamically stable and hemoglobin was stable patient was taken down for colonoscopy. Patient was found to have several diverticulosis along with external hemorrhoids which is most likely the cause of her bright red blood per rectum. Patient tolerated the procedure well and was returned back to the regular floor. Postprocedure patient did well his hemoglobin still remains stable and thus was switched over to p.o. Protonix. Patient then was discharged home per GI is recommendation was asked to follow up with GI in about 1-2 days post discharge. While here in the hospital patient complained of having right shoulder pain and thus x-ray and MRI was done which was consistent with full-thickness tear of the rotator cuff with no tendon attachment. Patient was provided with outpatient ortho consulted and was asked to follow up with orthopedics in about 1-2 days post discharge as well. Vital Signs/Physical Exam: Temp Pulse Resp BP Pulse Ox 96.8 F 72 18 156/72 H 94 02/20/19 08:00 02/20/19 09:41 02/20/19 00:00 02/20/19 09:41 02/20/19 08:00 General: Alert, In no apparent distress HEENT: Atraumatic, PERRLA, EOMI Neck: Supple, JVD not distended Respiratory: Clear to auscultation bilaterally, Normal air movement Cardiovascular: Regular rate/rhythm, Normal S1 S2 Gastrointestinal: Normal bowel sounds, No tenderness Musculoskeletal: Tenderness (Right shoulder with pain) Integumentary: No rashes Neurological: Normal speech, Normal tone, Normal affect Lymphatics: No axilla or inguinal lymphadenopathy Laboratory Data at Discharge: WBC 6.3 K/uL (4.3-10.9) 02/18/19 05:47 Hgb 10.3 g/dL (12.0-15.0) L 02/18/19 14:27 Hct 30.6 % (36.0-45.0) L 02/18/19 14:27 Plt Count 196 K/uL (152-406) 02/18/19 05:47 PT 12.6 SECONDS (9.5-12.5) H 02/17/19 12:40 INR 1.07 02/17/19 12:40 APTT 28.1 SECONDS (24.3-36.9) 02/17/19 12:40 Sodium 147 mmol/L (136-145) H 02/18/19 05:47 Potassium 4.1 mmol/L (3.5-5.1) 02/18/19 05:47 BUN 20 mg/dL (7-18) H 02/18/19 05:47 Creatinine 1.12 mg/dL (0.55-1.3) 02/18/19 05:47 Glucose 96 mg/dL (74-106) 02/18/19 05:47 Total Bilirubin 0.4 mg/dL (0.2-1.0) 02/16/19 19:45 AST 27 U/L (15-37) 02/16/19 19:45 ALT 22 U/L (12-78) 02/16/19 19:45 Alkaline Phosphatase 49 U/L (45-117) 02/16/19 19:45 Lipase 221 U/L (73-393) 02/16/19 19:45 Home Medications: Aspirin [Aspirin EC 81 MG] 1 mg PO DAILY 02/17/19 Carvedilol 12.5 mg PO BID 02/17/19 Fenofibrate,Micronized [Fenofibrate] 200 mg PO DAILY 02/17/19 Metformin HCl 500 mg PO BID 02/17/19 PARoxetine HCl [Paroxetine HCl] 40 mg PO DAILY 02/17/19 Pravastatin Sodium 80 mg PO DAILY 02/17/19 Ranitidine HCl [Zantac] 150 mg PO DAILY 02/17/19 traMADol HCL [Ultram*] 50 mg PO Q4HP PRN 02/17/19 Pantoprazole Sodium [Protonix] 40 mg PO DAILY #30 tablet. 02/20/19 New Medications: Pantoprazole Sodium [Protonix] 40 mg PO DAILY #30 tablet. Patient Discharge Instructions: Please f.u with PCP and GI in 1 to 2 days post discharge. New medication. Protonix 40mg Daily. Hold ASA for next 3 days and then restart it again Diet: Regular Activity: Ad dawson Followup: Devante Slaughter MD [ASSOCIATE-ACTIVE - CAN ADMIT] - 1 Week
--- NOTE | 2019-02-20 12:51 | P.PN ---
Subjective Date of Service: 02/20/19 Chief Complaint: GI bleeding Subjective: Improving (No blood seen by patient. Feels well and wants to go home, stating she was to have blood count checked. Tolerating po diet. Diverticulosis and hemorrhoids noted on colonoscopy. EGD was normal.) Review of Systems 10-point ROS is otherwise unremarkable General: Weakness (Improved. ) Physical Examination - Vital Signs Temperature: 96.8 F Blood Pressure: 156/72 Pulse: 72 Respirations: 18 Pulse Ox (%): 94 - Physical Exam General: Alert, In no apparent distress, Oriented x3, Cooperative HEENT: Atraumatic, Normocephalic, PERRLA, EOMI Neck: Supple Respiratory: Normal air movement Cardiovascular: Normal pulses Gastrointestinal: Soft and benign, No tenderness, No rebound, No guarding Neurological: Normal speech, Normal strength at 5/5 x4 extr - Studies Medications List Reviewed: Yes Assessment And Plan - Current Problems (Diagnosis) (1) Hematochezia Current Visit: Yes Status: Acute Comment: Though secondary to diverticular bleed and possibly hemorrhoids. (2) GERD (gastroesophageal reflux disease) Current Visit: Yes Status: Acute (3) Epigastric abdominal pain Current Visit: Yes Status: Acute (4) RLQ abdominal pain Current Visit: Yes Status: Acute (5) LLQ abdominal pain Current Visit: Yes Status: Acute (6) GIB (gastrointestinal bleeding) Current Visit: Yes Status: Acute Qualifiers: GI bleed type/associated pathology: diverticulosis Qualified Code(s): K57.91 - Diverticulosis of intestine, part unspecified, without perforation or abscess with bleeding - Plan REC: 1) check hgb 2) okay to discharge if hgb stable with GI clinic f/u in 1-2 weeks
[2019-02-20 13:22] LABS: Absolute Lymphocytes (CBC) 1.5 K/uL (0.7-4.9); Absolute Monocytes 0.8 K/uL (0.1-1.3); Absolute Neutrophil 5.6 K/uL (1.8-8.0); Basophils % 0.9 % (0-1.3); Eosinophils % 1.1 % (0-4.4); Hematocrit 30.7 % (36.0-45.0); Lymphocytes % 18.6 % (15.3-44.8); MPV 9.3 fL (7.6-11.3); Monocytes % 9.3 % (3.3-12.3); RBC Red Blood Cell Count 3.42 M/uL (3.86-4.86)
== END 2019-02-20 14:45 | disposition home or self-care (01) | DRG 378 ==
LOC: ER 18:26 → ERHOLD 02-17 00:31 → 2ND 02-17 00:51
PROVIDERS: ADMIT Hospitalist; ATTEND Family Medicine
PROC: 30233N1 Transfusion of Nonautologous Red Blood Cells into Peripheral Vein, Percutaneous Approach (ICD-10-PCS; 2019-02-19)
PROC: 0DB68ZX Excision of Stomach, Via Natural or Artificial Opening Endoscopic, Diagnostic (ICD-10-PCS; principal; 2019-02-19 13:30)
PROC: 0DJD8ZZ Inspection of Lower Intestinal Tract, Via Natural or Artificial Opening Endoscopic (ICD-10-PCS; 2019-02-19 13:30)
DX: K57.91 Diverticulosis of intestine, part unspecified, without perforation or abscess with bleeding (principal); D62 Acute posthemorrhagic anemia; E11.9 Type 2 diabetes mellitus without complications; I10 Essential (primary) hypertension; K64.4 Residual hemorrhoidal skin tags; M75.121 Complete rotator cuff tear or rupture of right shoulder, not specified as traumatic; Z79.84 Long term (current) use of oral hypoglycemic drugs; K64.8 Other hemorrhoids; K21.9 Gastro-esophageal reflux disease without esophagitis
CPT/HCPCS: 36415; 36430; 74177; 78278; 80048; 80076; 81003; 81015; 82962; 83690; 85014; 85018; 85025; 85610; 85730; 86850; 86900; 86901; 87077; 87086; 87088; 87186; 88305; 88312; 93005; 94760; 96374; 96375; 97166; 99285; A9560; C9113; J0360; J1642; J1940; J2270; J2405; J2704; J2765; J7030; P9016; Q9967

== ENCOUNTER 2022-10-09 19:14 | Inpatient (IN) | payer OTHER ==
--- OUTSIDE RECORDS SUMMARY | 2022-10-09 19:20 | XMS REPORT | Continuity of Care Document ---
:1940 Author Organization [facility] t Address [address] [place] [address] [address] [place] [address] Care Team Providers Name Role Phone Roger Serrato MD Primary Care Physician VINCE LOPEZ Attending Clinician Unavailable EFFIE VERAS Attending Clinician Unavailable ROGER SERRATO Attending Clinician Unavailable Roger Serrato MD Attending Clinician Queenie Mcdonald Attending Clinician Vince Lopez MD Attending Clinician Abdiel Martínez CRNA Attending Clinician Michael Lema MD Attending Clinician [phone] Pob, [facility] Main Attending Clinician Unavailable Doctor Unassigned, [place] [facility] Attending Clinician Unavailable QUEENIE ARREDONDO Attending Clinician Unavailable Vaccine, [facility] Attending Clinician Unavailable Only, [facility] Test Attending Clinician Unavailable CHRISTINE CONNER Attending Clinician Unavailable RICKY PADILLA Attending Clinician Unavailable NICOLETTE HOBBS Attending Clinician Unavailable VINCE LOPEZ Admitting Clinician Unavailable Vince Lopez MD Admitting Clinician NICOLETTE HOBBS Admitting Clinician Unavailable Payers Payer Name Policy Type Policy Number Effective Date Expiration Date S [facility] MEDICARE PART A [id number] 2004 \T\ B 00:00:00 Problems Condition Condition Condition Status Onset Resolution Last Treating Co mments Source Name Details Category Date Date Treatment Clinician Date Essential Essential Disease Active Uni vers hypertensi hypertensi 08-18 it y of on on 00:00: [place] 00 Medical Branch Hyperlipid Hyperlipid Disease Active U nivers emia, emia, 08-18 ity of unspecifie [place]specifie [place] 00 Medical hyperlipid hyperlipid Br anch emia type emia type Type 2 Type 2 Disease Active Univers diabetes diabetes 08-18 ity of mellitus mellitus 00:00: [place] without without 00 Medical complicati complicati Br anch on, on, without without long-term long-term current current use of use of insulin insulin Trigeminal Trigeminal Disease Active U nivers neuralgia neuralgia 08-18 ity of of right of right 00:00: [place] side of side of 00 Medical face face Branch Allergies, Adverse Reactions, Alerts Allergy Allergy Status Severity Reaction(s) Onset Inactive Treating Comm ents Source Name Type Date Date Clinician NO KNOWN Drug Active Univers ALLERGIE Class ity of S [facility] Social History Social Habit Start Date Stop Date Quantity Comments Source Alcohol intake 2022-07-18 2022-07-18 Current University of 00:00:00 00:00:00 non-drinker of [facility] alcohol (finding) Branch Exposure to 2022-07-06 2022-07-16 Not sure [facility] SARS-CoV-2 00:00:00 09:30:00 [facility] (event) Branch Tobacco use and 2018-08-18 2018-08-18 Smokeless tobacco Un iversity of exposure 00:00:00 00:00:00 non-user [facility] Sex Assigned At [birth year] Universit y of 00:00:00 00:00:00 [facility] Smoking Status Start Date Stop Date Source Never smoked tobacco [facility] Medications Ordered Filled Start Stop Current Ordering Indication Dosage Frequency Signature Comments Components Source Medication Medication Date Date Medication? Clinician (SIG) Name Name HYDROcodone Yes 2745 1{tbl} Take 1 Un kat -acetaminop 9-26 tablet by ity of hen 5-325 00:00: mouth 2 [place] mg tablet 00 (two) Medical times Branch daily as needed for Pain (scale 4-6). Indication s: chronic pain HYDROcodone Yes 2745 1{tbl} Take 1 Un kat -acetaminop 9-26 tablet by ity of hen 5-325 00:00: mouth 2 [place] mg tablet 00 (two) Medical times Branch daily as needed for Pain (scale 4-6). Indication s: chronic pain TROSPIUM 20 Yes [id number] TAKE 1 Univers mg tablet 9-16 TABLET BY ity o f 00:00: MOUTH IN [place] 00 THE Medical MORNING Branch AND 1 TABLET IN THE EVENING. NEEDS APPOINTMEN T TROSPIUM 20 Yes [id number] TAKE 1 Univers mg tablet 9-16 TABLET BY ity o f 00:00: MOUTH IN [place] 00 THE Medical MORNING Branch AND 1 TABLET IN THE EVENING. NEEDS APPOINTMEN T TROSPIUM 20 Yes [id number] TAKE 1 Univers mg tablet 9-16 TABLET BY ity o f 00:00: MOUTH IN [place] 00 THE Medical MORNING Branch AND 1 TABLET IN THE EVENING. NEEDS APPOINTMEN T TROSPIUM 20 Yes [id number] TAKE 1 Univers mg tablet 9-16 TABLET BY ity o f 00:00: MOUTH IN [place] 00 THE Medical MORNING Branch AND 1 TABLET IN THE EVENING. NEEDS APPOINTMEN T apixaban Yes 1358 TAKE 1 Univers (ELIQUIS) 5 9-07 TABLET BY ity of mg tablet 00:00: MOUTH [place] 00 TWICE A Medical DAY TO Branch 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 INDICATION S: TO 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 Indication s: atrial fibrillati on apixaban Yes 1358 TAKE 1 Univers (ELIQUIS) 5 9-07 TABLET BY ity of mg tablet 00:00: MOUTH [place] 00 TWICE A Medical DAY TO Branch 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 INDICATION S: TO 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 Indication s: atrial fibrillati on apixaban Yes 1358 TAKE 1 Univers (ELIQUIS) 5 9-07 TABLET BY ity of mg tablet 00:00: MOUTH [place] 00 TWICE A Medical DAY TO Branch 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 INDICATION S: TO 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 Indication s: atrial fibrillati on apixaban Yes 1358 TAKE 1 Univers (ELIQUIS) 5 9-07 TABLET BY ity of mg tablet 00:00: MOUTH 00 TWICE A Medical DAY TO Branch 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 INDICATION S: TO 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 Indication s: atrial fibrillati on apixaban Yes 1358 TAKE 1 Univers (ELIQUIS) 5 9-07 TABLET BY ity of mg tablet 00:00: MOUTH [place] 00 TWICE A Medical DAY TO Branch 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 INDICATION S: TO 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 Indication s: atrial fibrillati on neomycin-po 2021- No PRN, Unive rs lymyxin-dex 07-17 Starting ity of amethasone 15:52: 15:59 [place] (MAXITROL) 00 :09 07/17/22 at Med ical 3.5 1052, Branch mg/g-10,000 Until Fri unit/g-0.1 07/17/22 at % 1059, ophthalmic Routine, ointment Intra-op sodium 2021- No PRN, Univers chloride 07-17 Starting ity of (NS) 15:51: 15:59 on Fri [place] injection 00 :09 07/17/22 at Medi aleksandra 1051, Branch Until Fri07/17/22 at 1059, Routine, Intra-op dexamethaso 2021- No PRN, Unive rs ne 07-17 Starting ity of (DECADRON 15:51: 15:59 on Fri [place] PHOSPHATE) 00 :09 07/17/22 at Med ical injection 1051, Branch Until Fri07/17/22 at 1059, Routine, Intra-op ceFAZolin 2021- No PRN, Univers (ANCEF) 07-17 Starting ity of injection 15:51: 15:59 on Fri [place] 00 :09 07/17/22 at Medical 1051, Branch Until Fri07/17/22 at 1059, COURTNEY, Intra-op carbachoL 2021- No PRN, Univers (MIOSTAT) 07-17 Starting ity o f 0.01 % 15:49: 15:59 on Fri [place] intraocular 00 :09 07/17/22 at Ca dical injection 1049, Branch Until Fri07/17/22 at 1059, Routine, Intra-op EPINEPHrine 2021- No PRN, Unive rs 1:1,000 (1 07-17 Starting ity of mg/mL) 15:37: 15:59 on Fri [place] (ADRENALIN) 00 :09 07/17/22 at Ca dical injection 1037, Branch Until Fri07/17/22 at 1059, Routine, Intra-op chondroitin 2021- No PRN, Unive rs sulf-sod 07-17 Starting ity of hyaluronate 15:37: 15:59 on Fri [place] (DUOVISC 00 :09 07/17/22 at Medic al VISCO 1037, Branch ELASTIC) Until Fri intraocular 07/17/22 at injection 1059, Routine, Intra-op balanced 2021- No PRN, Univers salt irrig 07-17 Starting ity of soln comb1 15:37: 15:59 [place] (BSS PLUS) 00 :09 07/17/22 at [facility] ical ophthalmic 1037, Branch solution Until Fri 500 mL bag 07/17/22 at 1059, Routine, Intra-op water for 2021- No PRN, Univers irrigation 07-17 Starting ity of irrigation 15:33: 15:59 [place] solution 00 :09 07/17/22 at Medic al 1033, Branch Until Fri07/17/22 at 1059, Routine, Intra-op Hyaluronida 2021- No PRN, Unive rs se, Human 07-17 Starting ity o f Recomb. 15:30: 15:59 on Fri [place] (HYLENEX) 00 :09 07/17/22 at [facility] aleksandra injection 1030, Branch Until Fri07/17/22 at 1059, Routine, Intra-op eye block 2021- No PRN, Univers syringe 11 07-17 Starting ity of mL 15:30: 15:59 on Fri [place] 00 :09 07/17/22 at Medical 1030, Branch Until Fri07/17/22 at 1059, Intra-op propofoL IV 2021- No Intravenou Univers infusion 07-17 s, ONCE ity of 15:26: 15:58 INTRA 00 :34 PROCEDURE, Medical Starting Branch on Fri07/17/22 at 1026, Until Fri07/17/22 at 1058, Routine, Intra-op labetaloL 2021- No Slow IV Univ ers (NORMODYNE) 07-17 Push, ONCE i ty of injection 15:21: 15:58 INTRA [place] 00 :34 PROCEDURE, Medical Starting Branch on Fri07/17/22 at 1021, Until Fri07/17/22 at 1058, Routine, Intra-op midazolam 2021- No IV Push, Uni vers (VERSED) 07-17 ONCE INTRA ity of injection 15:21: 15:58 PROCEDURE, [place] 00 :34 Starting Medical on Fri Branch 07/17/22 at 1021, Until Fri07/17/22 at 1058, Routine, Intra-op lactated 2021- No Intravenou Un kat ringers IV 07-17 s, ity of infusion 15:21: 15:58 CONTINUOUS [place] 00 :34 PRN, Medical Starting Branch on Fri07/17/22 at 1021, Until Fri07/17/22 at 1058, Routine, Intra-op ketorolac 2021- No 1[drp] 1 Drop, Un kat (ACULAR) 07-17 Right Eye, ity of 0.5 % 13:45: 13:49 ONCE, 1 ophthalmic 00 :00 dose, On Medic al solution 1 Fri Branch Drop 07/17/22 at 0845, Routine, DSU Pre-op tropicamide 2021- No 1[drp] 1 Drop, Univers (MYDRIACYL) 07-17 Right Eye, i ty of 1 % 13:45: 13:49 ONCE, 1 ophthalmic 00 :00 dose, On Medic al drops 1 Fri Branch Drop 07/17/22 at 0845, Routine, DSU Pre-op phenylephri 2021- No 1[drp] 1 Drop, Univers ne 07-17 Right Eye, ity of (IVIS-SYNEPH 13:45: 13:49 ONCE, 1 [place] RINE[place] 2.5 % 00 :00 dose, On Medi aleksandra ophthalmic Wed Branch drops 1 07/17/22 at Drop 0845, Routine, DSU Pre-op cyclopentol 2021- No 1[drp] 1 Drop, Univers ate 07-17 Right Eye, ity of (CYCLOGYL) 13:45: 13:50 ONCE, 1 [place] 1 % 00 :00 dose, On Medical ophthalmic Wed Branch drops 1 07/17/22 at Drop 0845, Routine, DSU Pre-op lactated 2021- No 1000mL at 42 Unive rs ringers IV 07-17 mL/hr, ity of infusion 13:45: 14:14 1,000 mL, [place] 1,000 mL 00 :00 IV Medical Infusion, Branch ONCE, 1 dose, On Fri07/17/22 at 0845, Routine, DSU Pre-op ketorolac 2021- No 1[drp] 1 Drop, Un kat (ACULAR) 07-17 Right Eye, ity of 0.5 % 13:45: 13:49 ONCE, 1 [place] ophthalmic 00 :00 dose, On Medic al solution 1 Wed Branch Drop 07/17/22 at 0845, Routine, DSU Pre-op tropicamide 2021- No 1[drp] 1 Drop, Univers (MYDRIACYL) 07-17 Right Eye, i ty of 1 % 13:45: 13:49 ONCE, 1 [place] ophthalmic 00 :00 dose, On Medic al drops 1 Wed Branch Drop 07/17/22 at 0845, Routine, DSU Pre-op phenylephri 2021- No 1[drp] 1 Drop, Univers ne 07-17 Right Eye, ity of (IVIS-SYNEPH 13:45: 13:49 ONCE, 1 [place]) 2.5 % 00 :00 dose, On Medi aleksandra ophthalmic Wed Branch drops 1 07/17/22 at Drop 0845, Routine, DSU Pre-op cyclopentol 2021- No 1[drp] 1 Drop, Univers ate 07-17 Right Eye, ity of (CYCLOGYL) 13:45: 13:50 ONCE, 1 [place] 1 % 00 :00 dose, On Medical ophthalmic Wed Branch drops 1 07/17/22 at Drop 0845, Routine, DSU Pre-op lactated 2021- No 1000mL at 42 Unive rs ringers IV 07-17 mL/hr, ity of infusion 13:45: 14:14 1,000 mL, [place] 1,000 mL 00 :00 IV Medical Infusion, Branch ONCE, 1 dose, On 07/17/22 at 0845, Routine, DSU Pre-op HYDROcodone 2021-0 Yes 2745 1{tbl} Take 1 Un kat -acetaminop 8-22 tablet by ity of hen 5-325 00:00: mouth 2 [place] mg tablet 00 (two) Medical times Branch daily as needed for Pain (scale 4-6). Indication s: chronic pain HYDROcodone Yes 2745 1{tbl} Take 1 Un kat -acetaminop 8-22 tablet by ity of hen 5-325 00:00: mouth 2 [place] mg tablet 00 (two) Medical times Branch daily as needed for Pain (scale 4-6). Indication s: chronic pain HYDROcodone 2021-0 Yes 2745 1{tbl} Take 1 Un kat -acetaminop 8-22 tablet by ity of hen 5-325 00:00: mouth 2 [place] mg tablet 00 (two) Medical times Branch daily as needed for Pain (scale 4-6). Indication s: chronic pain HYDROcodone 2021-0 Yes 2745 1{tbl} Take 1 Un kat -acetaminop 8-22 tablet by ity of hen 5-325 00:00: mouth 2 [place] mg tablet 00 (two) Medical times Branch daily as needed for Pain (scale 4-6). Indication s: chronic pain HYDROcodone 2021-0 Yes 2745 1{tbl} Take 1 Un kat -acetaminop 8-22 tablet by ity of hen 5-325 00:00: mouth 2 [place] mg tablet 00 (two) Medical times Branch daily as needed for Pain (scale 4-6). Indication s: chronic pain HYDROcodone 2021-0 Yes 2745 1{tbl} Take 1 Un kat -acetaminop 8-22 tablet by ity of hen 5-325 00:00: mouth 2 [place] mg tablet 00 (two) Medical times Branch daily as needed for Pain (scale 4-6). Indication s: chronic pain HYDROcodone 0 2021- No 2745 1{tbl} Take 1 U nivers -acetaminop 8-22 -26 tablet by it y of hen 5-325 00:00: 00:00 mouth 2 [place] mg tablet 00 :00 (two) Medical times Branch daily as needed for Pain (scale 4-6). Indication s: chronic pain AMLODIPINE 2021-0 Yes [id number] TAKE 1 U nivers 5 mg tablet 8-09 TABLET BY ity of 00:00: MOUTH [place] 00 EVERY DAY Medical Branch AMLODIPINE 2021-0 Yes [id number] TAKE 1 U nivers 5 mg tablet 8-09 TABLET BY ity of 00:00: MOUTH [place] 00 EVERY DAY Medical Branch trospium 20 2021-0 Yes [id number] 20mg Take 1 Univers mg tablet 8-09 tablet by ity o f 00:00: mouth in [place] 00 the Medical morning Branch and 1 tablet in the evening. AMLODIPINE 2021-0 Yes [id number] TAKE 1 U nivers 5 mg tablet 8-09 TABLET BY ity of 00:00: MOUTH [place] 00 EVERY DAY Medical Branch trospium 20 2021-0 Yes [id number] 20mg Take 1 Univers mg tablet 8-09 tablet by ity o f 00:00: mouth in [place] 00 the Medical morning Branch and 1 tablet in the evening. AMLODIPINE 2021-0 Yes [id number] TAKE 1 U nivers 5 mg tablet 8-09 TABLET BY ity of 00:00: MOUTH [place] 00 EVERY DAY Medical Branch trospium 20 2021-0 Yes [id number] 20mg Take 1 Univers mg tablet 8-09 tablet by ity o f 00:00: mouth in [place] 00 the Medical morning Branch and 1 tablet in the evening. AMLODIPINE 2021-0 Yes [id number] TAKE 1 U nivers 5 mg tablet 8-09 TABLET BY ity of 00:00: MOUTH [place] 00 EVERY DAY Medical Branch trospium 20 2021-0 Yes [id number] 20mg Take 1 Univers mg tablet 8-09 tablet by ity o f 00:00: mouth in [place] 00 the Medical morning Branch and 1 tablet in the evening. AMLODIPINE 2-0 Yes [id number] TAKE 1 U nivers 5 mg tablet 8-09 TABLET BY ity of 00:00: MOUTH [place] 00 EVERY DAY Medical Branch trospium 20 2-0 Yes [id number] 20mg Take 1 Univers mg tablet 8-09 tablet by ity o f 00:00: mouth in [place] 00 the Medical morning Branch and 1 tablet in the evening. AMLODIPINE 2-0 Yes [id number] TAKE 1 U nivers 5 mg tablet 8-09 TABLET BY ity of 00:00: MOUTH [place] 00 EVERY DAY Medical Branch trospium 20 2-0 Yes [id number] 20mg Take 1 Univers mg tablet 8-09 tablet by ity o f 00:00: mouth in [place] 00 the Medical morning Branch and 1 tablet in the evening. AMLODIPINE 2021-0 Yes [id number] TAKE 1 U nivers 5 mg tablet 8-09 TABLET BY ity of 00:00: MOUTH [place] 00 EVERY DAY Medical Branch trospium 20 2021-0 Yes [id number] 20mg Take 1 Univers mg tablet 8-09 tablet by ity o f 00:00: mouth in [place] 00 the Medical morning Branch and 1 tablet in the evening. AMLODIPINE 2021-0 Yes [id number] TAKE 1 U nivers 5 mg tablet 8-09 TABLET BY ity of 00:00: MOUTH [place] 00 EVERY DAY Medical Branch trospium 20 2-0 Yes [id number] 20mg Take 1 Univers mg tablet 8-09 tablet by ity o f 00:00: mouth in [place] 00 the Medical morning Branch and 1 tablet in the evening. AMLODIPINE 2-0 Yes [id number] TAKE 1 U nivers 5 mg tablet 8-09 TABLET BY ity of 00:00: MOUTH [place] 00 EVERY DAY Medical Branch AMLODIPINE 2-0 Yes [id number] TAKE 1 U nivers 5 mg tablet 8-09 TABLET BY ity of 00:00: MOUTH [place] 00 EVERY DAY Medical Branch AMLODIPINE 2-0 Yes [id number] TAKE 1 U nivers 5 mg tablet 8-09 TABLET BY ity of 00:00: MOUTH [place] 00 EVERY DAY Medical Branch AMLODIPINE 2-0 Yes [id number] TAKE 1 U nivers 5 mg tablet 8-09 TABLET BY ity of 00:00: MOUTH [place] 00 EVERY DAY Medical Branch trospium 20 2022-0 2021- No [id number] 20mg Take 1 Univers mg tablet 07-02-16 tablet by ity of 00:00: 00:00 mouth in [place] 00 :00 the Medical morning Branch and 1 tablet in the evening. HYDROcodone Yes 2745 1{tbl} Take 1 Un kta -acetaminop 7-21 tablet by ity of hen 5-325 00:00: mouth 2 [place] mg tablet 00 (two) Medical times Branch daily as needed for Pain (scale 4-6). Indication s: chronic pain HYDROcodone Yes 2745 1{tbl} Take 1 Un kat -acetaminop 7-21 tablet by ity of hen 5-325 00:00: mouth 2 [place] mg tablet 00 (two) Medical times Branch daily as needed for Pain (scale 4-6). Indication s: chronic pain HYDROcodone Yes 2745 1{tbl} Take 1 Un kat -acetaminop 7-21 tablet by ity of hen 5-325 00:00: mouth 2 [place] mg tablet 00 (two) Medical times Branch daily as needed for Pain (scale 4-6). Indication s: chronic pain HYDROcodone Yes 2745 1{tbl} Take 1 Un kat -acetaminop 7-21 tablet by ity of hen 5-325 00:00: mouth 2 [place] mg tablet 00 (two) Medical times Branch daily as needed for Pain (scale 4-6). Indication s: chronic pain HYDROcodone 2021- No 2745 1{tbl} Take 1 U nivers -acetaminop 7-21 08-22 tablet by it y of hen 5-325 00:00: 00:00 mouth 2 [place] mg tablet 00 :00 (two) Medical times Branch daily as needed for Pain (scale 4-6). Indication s: chronic pain HYDROcodone 2021- Yes 2745 1{tbl} Take 1 Un kat -acetaminop 6-20 tablet by ity of hen 5-325 00:00: mouth 2 [place] mg tablet 00 (two) Medical times Branch daily as needed for Pain (scale 4-6). Indication s: chronic pain HYDROcodone 2021- No 2745 1{tbl} Take 1 U nivers -acetaminop 6-20 07-21 tablet by it y of hen 5-325 00:00: 00:00 mouth 2 [place] mg tablet 00 :00 (two) Medical times Branch daily as needed for Pain (scale 4-6). Indication s: chronic pain HYDROcodone 2021-0 Yes 2745 1{tbl} Take 1 Un kat -acetaminop 5-31 tablet by ity of hen 5-325 00:00: mouth 2 [place] mg tablet 00 (two) Medical times Branch daily as needed for Pain (scale 4-6). Indication s: chronic pain HYDROcodone 2021-0 Yes 2745 1{tbl} Take 1 Un kat -acetaminop 5-31 tablet by ity of hen 5-325 00:00: mouth 2 [place] mg tablet 00 (two) Medical times Branch daily as needed for Pain (scale 4-6). Indication s: chronic pain HYDROcodone 2021-0 Yes 2745 1{tbl} Take 1 Un kat -acetaminop 5-31 tablet by ity of hen 5-325 00:00: mouth 2 [place] mg tablet 00 (two) Medical times Branch daily as needed for Pain (scale 4-6). Indication s: chronic pain AMLODIPINE 2021-0 Yes [id number] TAKE 1 U nivers 5 mg tablet 5-31 TABLET BY ity of 00:00: MOUTH [place] 00 EVERY DAY Medical Branch AMLODIPINE 2021-0 Yes [id number] TAKE 1 U nivers 5 mg tablet 5-31 TABLET BY ity of 00:00: MOUTH [place] 00 EVERY DAY Medical Branch AMLODIPINE 2021-0 Yes [id number] TAKE 1 U nivers 5 mg tablet 5-31 TABLET BY ity of 00:00: MOUTH [place] 00 EVERY DAY Medical Branch AMLODIPINE 2021-0 2- No [id number] TAKE 1 Univers 5 mg tablet 5-31 08-09 TABLET BY it y of 00:00: 00:00 MOUTH [place] 00 :00 EVERY DAY Medical Branch HYDROcodone 2021-0 2021- No 2745 1{tbl} Take 1 U nivers -acetaminop 5-31 06-20 tablet by it y of hen 5-325 00:00: 00:00 mouth 2 [place] mg tablet 00 :00 (two) Medical times Branch daily as needed for Pain (scale 4-6). Indication s: chronic pain sulfamethox 2021-2021- No [id number] 1{tbl} Take 1 Univers azole-trime 5-31 06-06 tablet by it y of thoprim 00:00: 04:59 mouth 2 [place] (BACTRIM 00 :00 (two) Medical DS) 800-160 times Branch mg per daily for tablet 5 days. sulfamethox 2021-0 2021- No [id number] 1{tbl} Take 1 Univers azole-trime 5-31 06-06 tablet by it y of thoprim 00:00: 04:59 mouth 2 [place] (BACTRIM 00 :00 (two) Medical DS) 800-160 times Branch mg per daily for tablet 5 days. trospium 20 2021-0 Yes [id number] 20mg Take 1 Univers mg tablet 5-26 tablet by ity o f 00:00: mouth [place] ([facility]) Medical times Branch daily. trospium 20 2021-0 Yes [id number] 20mg Take 1 Univers mg tablet 5-26 tablet by ity o f 00:00: mouth [place] ([facility]) Medical times Branch daily. trospium 20 2021-0 Yes [id number] 20mg Take 1 Univers mg tablet 5-26 tablet by ity o f 00:00: mouth [place] (two) Medical times Branch daily. trospium 20 2021-0 Yes [id number] 20mg Take 1 Univers mg tablet 5-26 tablet by ity o f 00:00: mouth [place] (two) Medical times Branch daily. trospium 20 2021-0 Yes [id number] 20mg Take 1 Univers mg tablet 5-26 tablet by ity o f 00:00: mouth [place] (two) Medical times Branch daily. trospium 20 2021-0 Yes [id number] 20mg Take 1 Univers mg tablet 5-26 tablet by ity o f 00:00: mouth [place] (two) Medical times Branch daily. trospium 20 2021-0 Yes [id number] 20mg Take 1 Univers mg tablet 5-26 tablet by ity o f 00:00: mouth 2 [place] (two) Medical times Branch daily. trospium 20 2021-0 2021- No [id number] 20mg Take 1 Univers mg tablet 5-26 08-09 tablet by ity of 00:00: 00:00 mouth 2 [place] 00 :00 (two) Medical times Branch daily. oxybutynin 2021- No [id number] 10mg Take 1 Univers 10 mg 24 hr 5-25 05-25 tablet by it y of tablet 00:00: 00:00 mouth [place] 00 :00 daily for Medical 1 day. Branch fenofibrate 2021-0 Yes [id number] 200mg Take 1 Univers micronized 5-11 capsule by ity of 200 mg 00:00: mouth [place] capsule 00 daily with Medica l breakfast. Branch pravastatin 2021-0 Yes [id number] 80mg Take 1 Univers 80 mg 5-11 tablet by ity of tablet 00:00: mouth at [place] 00 bedtime. Medical Branch PARoxetine 2021-0 Yes [id number] 40mg Take 1 U nivers 40 mg 5-11 tablet by ity of tablet 00:00: mouth [place] 00 daily. Medical Branch pantoprazol 2021-0 Yes [id number] 40mg Take 1 Univers e 40 mg EC 5-11 tablet by ity of tablet 00:00: mouth [place] 00 every Medical morning. Branch metFORMIN 2021-0 Yes [id number] 500mg Take 1 Univers 500 mg 5-11 tablet by ity of tablet 00:00: mouth 2 00 (two) Medical times Branch daily with meals. carvediloL 0 Yes [id number] 12.5mg Take 1 Univers 12.5 mg 5-11 tablet by ity of tablet 00:00: mouth 2 [place] 00 (two) Medical times Branch daily. fenofibrate 2021-0 Yes [id number] 200mg Take 1 Univers micronized 5-11 capsule by ity of 200 mg 00:00: mouth [place] capsule 00 daily with Medica l breakfast. Branch pravastatin 2021-0 Yes [id number] 80mg Take 1 Univers 80 mg 5-11 tablet by ity of tablet 00:00: mouth at [place] 00 bedtime. Medical Branch PARoxetine 2021-0 Yes [id number] 40mg Take 1 U nivers 40 mg 5-11 tablet by ity of tablet 00:00: mouth [place] 00 daily. Medical Branch pantoprazol 2021-0 Yes [id number] 40mg Take 1 Univers e 40 mg EC 5-11 tablet by ity of tablet 00:00: mouth [place] 00 every Medical morning. Branch metFORMIN 2021-0 Yes [id number] 500mg Take 1 Univers 500 mg 5-11 tablet by ity of tablet 00:00: mouth 2 (two) Medical times Branch daily with meals. carvediloL 2021-0 Yes [id number] 12.5mg Take 1 Univers 12.5 mg 5-11 tablet by ity of tablet 00:00: mouth 2 00 (two) Medical times Branch daily. fenofibrate 2021-0 Yes [id number] 200mg Take 1 Univers micronized 5-11 capsule by ity of 200 mg 00:00: mouth [place] capsule 00 daily with Medica l breakfast. Branch pravastatin 2021-0 Yes [id number] 80mg Take 1 [facility] 80 mg 5-11 tablet by ity of tablet 00:00: mouth at [place] 00 bedtime. Medical Branch PARoxetine 2021-0 Yes [id number] 40mg Take 1 U nivers 40 mg 5-11 tablet by ity of tablet 00:00: mouth [place] 00 daily. Medical Branch pantoprazol 2021-0 Yes [id number] 40mg Take 1 Univers e 40 mg EC 5-11 tablet by ity of tablet 00:00: mouth 00 every Medical morning. Branch metFORMIN 2021-0 Yes [id number] 500mg Take 1 [facility] 500 mg 5-11 tablet by ity of tablet 00:00: mouth (two) Medical times Branch daily with meals. carvediloL 0 Yes [id number] 12.5mg Take 1 Univers 12.5 mg 5-11 tablet by ity of tablet 00:00: mouth 2 00 (two) Medical times Branch daily. fenofibrate 2021-0 Yes [id number] 200mg Take 1 Univers micronized 5-11 capsule by ity of 200 mg 00:00: mouth [place] capsule 00 daily with Medica l breakfast. Branch pravastatin 2021-0 Yes [id number] 80mg Take 1 Univers 80 mg 5-11 tablet by ity of tablet 00:00: mouth at [place] 00 bedtime. Medical Branch PARoxetine 2021-0 Yes [id number] 40mg Take 1 U nivers 40 mg 5-11 tablet by ity of tablet 00:00: mouth [place] 00 daily. Medical Branch pantoprazol 2021-0 Yes [id number] 40mg Take 1 Univers e 40 mg EC 5-11 tablet by ity of tablet 00:00: mouth 00 every Medical morning. Branch metFORMIN 2021-0 Yes [id number] 500mg Take 1 Univers 500 mg 5-11 tablet by ity of tablet 00:00: mouth (two) Medical times Branch daily with meals. carvediloL 2021-0 Yes [id number] 12.5mg Take 1 Univers 12.5 mg 5-11 tablet by [facility] tablet 00:00: mouth 2 (two) Medical times Branch daily. fenofibrate 2021-0 Yes [id number] 200mg Take 1 [facility] micronized 5-11 capsule by [facility] 200 mg 00:00: mouth [place] capsule 00 daily with Medica l breakfast. Branch pravastatin 2021-0 Yes [id number] 80mg Take 1 [facility] 80 mg 5-11 tablet by [facility] tablet 00:00: mouth at 00 bedtime. Medical Branch PARoxetine 2021-0 Yes [id number] 40mg Take 1 [facility] 40 mg 5-11 tablet by [facility] tablet 00:00: mouth 00 daily. Medical Branch pantoprazol 2021-0 Yes [id number] 40mg Take 1 [facility] e 40 mg EC 5-11 tablet by [facility] tablet 00:00: mouth 00 every Medical morning. Branch metFORMIN 2021-0 Yes [id number] 500mg Take 1 [facility] 500 mg 5-11 tablet by [facility] tablet 00:00: mouth (two) Medical times Branch daily with meals. carvediloL 2021-0 Yes [id number] 12.5mg Take 1 [facility] 12.5 mg 5-11 tablet by [facility] tablet 00:00: mouth (two) Medical times Branch daily. fenofibrate 2021-0 Yes [id number] 200mg Take 1 [facility] micronized 5-11 capsule by [facility] of 200 mg 00:00: mouth [place] capsule 00 daily with Medica l breakfast. Branch pravastatin 2021-0 Yes [id number] 80mg Take 1 [facility] 80 mg 5-11 tablet by [facility] tablet 00:00: mouth at [place] 00 bedtime. Medical Branch PARoxetine 2021-0 Yes [id number] 40mg Take 1 [facility] 40 mg 5-11 tablet by [facility] tablet 00:00: mouth [place] 00 daily. Medical Branch pantoprazol 2021-0 Yes [id number] 40mg Take 1 [facility] e 40 mg EC 5-11 tablet by [facility] tablet 00:00: mouth 00 every Medical morning. Branch metFORMIN 2021-0 Yes [id number] 500mg Take 1 [facility] 500 mg 5-11 tablet by [facility] tablet 00:00: mouth 2 (two) Medical times Branch daily with meals. carvediloL 2021-0 Yes [id number] 12.5mg Take 1 [facility] 12.5 mg 5-11 tablet by [facility] of tablet 00:00: mouth 2 (two) Medical times Branch daily. fenofibrate 2021-0 Yes [id number] 200mg Take 1 [facility] micronized 5-11 capsule by [facility] of 200 mg 00:00: mouth [place] capsule 00 daily with Medica l breakfast. Branch pravastatin 0 Yes [id number] 80mg Take 1 [facility] 80 mg 5-11 tablet by [facility] tablet 00:00: mouth at [place] 00 bedtime. Medical Branch PARoxetine 2021-0 Yes [id number] 40mg Take 1 [facility] 40 mg 5-11 tablet by [facility] tablet 00:00: mouth [place] 00 daily. Medical Branch pantoprazol 0 Yes [id number] 40mg Take 1 [facility] e 40 mg EC 5-11 tablet by [facility] tablet 00:00: mouth 00 every Medical morning. Branch metFORMIN 0 Yes [id number] 500mg Take 1 [facility] 500 mg 5-11 tablet by [facility] tablet 00:00: mouth (two) Medical times Branch daily with meals. carvediloL 2021-0 Yes [id number] 12.5mg Take 1 [facility] 12.5 mg 5-11 tablet by [facility] tablet 00:00: mouth 2 (two) Medical times Branch daily. fenofibrate 2021-0 Yes [id number] 200mg Take 1 [facility] micronized 5-11 capsule by [facility] 200 mg 00:00: mouth [place] capsule 00 daily with Medica l breakfast. Branch pravastatin 2021-0 Yes [id number] 80mg Take 1 [facility] 80 mg 5-11 tablet by [facility] tablet 00:00: mouth at [place] 00 bedtime. Medical Branch PARoxetine 2021-0 Yes [id number] 40mg Take 1 [facility] 40 mg 5-11 tablet by [facility] tablet 00:00: mouth [place] 00 daily. Medical Branch pantoprazol 0 Yes [id number] 40mg Take 1 [facility] e 40 mg EC 5-11 tablet by [facility] tablet 00:00: mouth [place] 00 every Medical morning. Branch metFORMIN 0 Yes [id number] 500mg Take 1 [facility] 500 mg 5-11 tablet by [facility] tablet 00:00: mouth 2 (two) Medical times Branch daily with meals. carvediloL 0 Yes [id number] 12.5mg Take 1 [facility] 12.5 mg 5-11 tablet by [facility] tablet 00:00: mouth 2 (two) Medical times Branch daily. fenofibrate 0 Yes [id number] 200mg Take 1 [facility] micronized 5-11 capsule by [facility] of 200 mg 00:00: mouth [place] capsule 00 daily with Medica l breakfast. Branch pravastatin Yes [id number] 80mg Take 1 [facility] 80 mg 5-11 tablet by [facility] tablet 00:00: mouth at [place] 00 bedtime. Medical Branch PARoxetine 0 Yes [id number] 40mg Take 1 [facility] 40 mg 5-11 tablet by [facility] tablet 00:00: mouth [place] 00 daily. Medical Branch pantoprazol 0 Yes [id number] 40mg Take 1 [facility] e 40 mg EC 5-11 tablet by [facility] of tablet 00:00: mouth [place] 00 every Medical morning. Branch metFORMIN Yes [id number] 500mg Take 1 [facility] 500 mg 5-11 tablet by [facility] tablet 00:00: mouth (two) Medical times Branch daily with meals. carvediloL 0 Yes [id number] 12.5mg Take 1 [facility] 12.5 mg 5-11 tablet by [facility] tablet 00:00: mouth 2 00 (two) Medical times Branch daily. fenofibrate 2021-0 Yes [id number] 200mg Take 1 [facility] micronized 5-11 capsule by [facility] of 200 mg 00:00: mouth [place] capsule 00 daily with Medica l breakfast. Branch pravastatin 0 Yes [id number] 80mg Take 1 [facility] 80 mg 5-11 tablet by [facility] tablet 00:00: mouth at [place] 00 bedtime. Medical Branch PARoxetine 0 Yes [id number] 40mg Take 1 [facility] 40 mg 5-11 tablet by [facility] tablet 00:00: mouth [place] 00 daily. Medical Branch pantoprazol 0 Yes [id number] 40mg Take 1 [facility] e 40 mg EC 5-11 tablet by [facility] tablet 00:00: mouth [place] 00 every Medical morning. Branch metFORMIN 2021-0 Yes [id number] 500mg Take 1 [facility] 500 mg 5-11 tablet by [facility] tablet 00:00: mouth 2 (two) Medical times Branch daily with meals. carvediloL 0 Yes [id number] 12.5mg Take 1 [facility] 12.5 mg 5-11 tablet by [facility] of tablet 00:00: mouth 2 00 (two) Medical times Branch daily. fenofibrate 0 Yes [id number] 200mg Take 1 [facility] micronized 5-11 capsule by [facility] of 200 mg 00:00: mouth [place] capsule 00 daily with Medica l breakfast. Branch pravastatin 0 Yes [id number] 80mg Take 1 [facility] 80 mg 5-11 tablet by [facility] of tablet 00:00: mouth at [place] 00 bedtime. Medical Branch PARoxetine 0 Yes [id number] 40mg Take 1 [facility] 40 mg 5-11 tablet by [facility] of tablet 00:00: mouth [place] 00 daily. Medical Branch pantoprazol 0 Yes [id number] 40mg Take 1 [facility] e 40 mg EC 5-11 tablet by [facility] of tablet 00:00: mouth [place] 00 every Medical morning. Branch metFORMIN 2021-0 Yes [id number] 500mg Take 1 [facility] 500 mg 5-11 tablet by [facility] of tablet 00:00: mouth (two) Medical times Branch daily with meals. carvediloL 2021-0 Yes [id number] 12.5mg Take 1 [facility] 12.5 mg 5-11 tablet by [facility] tablet 00:00: mouth 2 00 (two) Medical times Branch daily. fenofibrate 2021-0 Yes [id number] 200mg Take 1 [facility] micronized 5-11 capsule by [facility] of 200 mg 00:00: mouth [place] capsule 00 daily with Medica l breakfast. Branch pravastatin 2021-0 Yes [id number] 80mg Take 1 [facility] 80 mg 5-11 tablet by [facility] tablet 00:00: mouth at [place] 00 bedtime. Medical Branch PARoxetine Yes [id number] 40mg Take 1 [facility] 40 mg 5-11 tablet by [facility] tablet 00:00: mouth [place] 00 daily. Medical Branch pantoprazol 2021-0 Yes [id number] 40mg Take 1 [facility] e 40 mg EC 5-11 tablet by [facility] of tablet 00:00: mouth [place] 00 every Medical morning. Branch metFORMIN 2021-0 Yes [id number] 500mg Take 1 [facility] 500 mg 5-11 tablet by [facility] of tablet 00:00: mouth (two) Medical times Branch daily with meals. carvediloL 0 Yes [id number] 12.5mg Take 1 [facility] 12.5 mg 5-11 tablet by [facility] tablet 00:00: mouth 2 (two) Medical times Branch daily. fenofibrate 0 Yes [id number] 200mg Take 1 [facility] micronized 5-11 capsule by [facility] of 200 mg 00:00: mouth [place] capsule 00 daily with Medica l breakfast. Branch pravastatin 2021-0 Yes [id number] 80mg Take 1 [facility] 80 mg 5-11 tablet by [facility] tablet 00:00: mouth at [place] 00 bedtime. Medical Branch PARoxetine 2021-0 Yes [id number] 40mg Take 1 [facility] 40 mg 5-11 tablet by [facility] tablet 00:00: mouth [place] 00 daily. Medical Branch pantoprazol 2021-0 Yes [id number] 40mg Take 1 [facility] e 40 mg EC 5-11 tablet by [facility] of tablet 00:00: mouth [place] 00 every Medical morning. Branch metFORMIN 2021-0 Yes [id number] 500mg Take 1 [facility] 500 mg 5-11 tablet by [facility] tablet 00:00: mouth (two) Medical times Branch daily with meals. carvediloL 2021-0 Yes [id number] 12.5mg Take 1 [facility] 12.5 mg 5-11 tablet by [facility] of tablet 00:00: mouth 2 (two) Medical times Branch daily. fenofibrate 2021-0 Yes [id number] 200mg Take 1 [facility] micronized 5-11 capsule by [facility] of 200 mg 00:00: mouth [place] capsule 00 daily with Medica l breakfast. Branch pravastatin 2021-0 Yes [id number] 80mg Take 1 [facility] 80 mg 5-11 tablet by [facility] tablet 00:00: mouth at [place] 00 bedtime. Medical Branch PARoxetine 2021-0 Yes [id number] 40mg Take 1 [facility] 40 mg 5-11 tablet by [facility] tablet 00:00: mouth [place] 00 daily. Medical Branch pantoprazol 2021-0 Yes [id number] 40mg Take 1 [facility] e 40 mg EC 5-11 tablet by [facility] of tablet 00:00: mouth [place] 00 every Medical morning. Branch metFORMIN 2021-0 Yes [id number] 500mg Take 1 [facility] 500 mg 5-11 tablet by [facility] tablet 00:00: mouth (two) Medical times Branch daily with meals. carvediloL 2021-0 Yes [id number] 12.5mg Take 1 [facility] 12.5 mg 5-11 tablet by [facility] of tablet 00:00: mouth 2 (two) Medical times Branch daily. fenofibrate 2021-0 Yes [id number] 200mg Take 1 [facility] micronized 5-11 capsule by [facility] of 200 mg 00:00: mouth [place] capsule 00 daily with Medica l breakfast. Branch pravastatin 2021-0 Yes [id number] 80mg Take 1 [facility] 80 mg 5-11 tablet by [facility] of tablet 00:00: mouth at [place] 00 bedtime. Medical Branch PARoxetine 2021-0 Yes [id number] 40mg Take 1 [facility] 40 mg 5-11 tablet by [facility] of tablet 00:00: mouth [place] 00 daily. Medical Branch pantoprazol 2021-0 Yes [id number] 40mg Take 1 [facility] e 40 mg EC 5-11 tablet by [facility] of tablet 00:00: mouth 00 every Medical morning. Branch metFORMIN 2021-0 Yes [id number] 500mg Take 1 [facility] 500 mg 5-11 tablet by [facility] of tablet 00:00: mouth (two) Medical times Branch daily with meals. carvediloL 2021-0 Yes [id number] 12.5mg Take 1 [facility] 12.5 mg 5-11 tablet by [facility] of tablet 00:00: mouth 2 (two) Medical times Branch daily. fenofibrate 2021-0 Yes [id number] 200mg Take 1 [facility] micronized 5-11 capsule by [facility] of 200 mg 00:00: mouth [place] capsule 00 daily with Medica l breakfast. Branch pravastatin 2021-0 Yes [id number] 80mg Take 1 [facility] 80 mg 5-11 tablet by [facility] of tablet 00:00: mouth at [place] 00 bedtime. Medical Branch PARoxetine 0 Yes [id number] 40mg Take 1 [facility] 40 mg 5-11 tablet by [facility] of tablet 00:00: mouth [place] 00 daily. Medical Branch pantoprazol 0 Yes [id number] 40mg Take 1 [facility] e 40 mg EC 5-11 tablet by [facility] of tablet 00:00: mouth [place] 00 every Medical morning. Branch metFORMIN 0 Yes [id number] 500mg Take 1 [facility] 500 mg 5-11 tablet by [facility] of tablet 00:00: mouth 2 (two) Medical times Branch daily with meals. carvediloL 0 Yes [id number] 12.5mg Take 1 [facility] 12.5 mg 5-11 tablet by [facility] of tablet 00:00: mouth 2 (two) Medical times Branch daily. fenofibrate 0 Yes [id number] 200mg Take 1 [facility] micronized 5-11 capsule by [facility] of 200 mg 00:00: mouth [place] capsule 00 daily with Medica l breakfast. Branch pravastatin 0 Yes [id number] 80mg Take 1 [facility] 80 mg 5-11 tablet by [facility] of tablet 00:00: mouth at [place] 00 bedtime. Medical Branch PARoxetine 0 Yes [id number] 40mg Take 1 [facility] 40 mg 5-11 tablet by [facility] of tablet 00:00: mouth [place] 00 daily. Medical Branch pantoprazol 0 Yes [id number] 40mg Take 1 [facility] e 40 mg EC 5-11 tablet by [facility] of tablet 00:00: mouth [place] 00 every Medical morning. Branch metFORMIN 0 Yes [id number] 500mg Take 1 [facility] 500 mg 5-11 tablet by [facility] of tablet 00:00: mouth 2 (two) Medical times Branch daily with meals. carvediloL 2021-0 Yes [id number] 12.5mg Take 1 [facility] 12.5 mg 5-11 tablet by [facility] of tablet 00:00: mouth 2 00 (two) Medical times Branch daily. fenofibrate 2021-0 Yes [id number] 200mg Take 1 [facility] micronized 5-11 capsule by [facility] of 200 mg 00:00: mouth [place] capsule 00 daily with Medica l breakfast. Branch pravastatin Yes [id number] 80mg Take 1 [facility] 80 mg 5-11 tablet by [facility] of tablet 00:00: mouth at [place] 00 bedtime. Medical Branch PARoxetine 0 Yes [id number] 40mg Take 1 [facility] 40 mg 5-11 tablet by [facility] of tablet 00:00: mouth [place] 00 daily. Medical Branch pantoprazol Yes [id number] 40mg Take 1 [facility] e 40 mg EC 5-11 tablet by [facility] of tablet 00:00: mouth [place] 00 every Medical morning. Branch metFORMIN Yes [id number] 500mg Take 1 [facility] 500 mg 5-11 tablet by [facility] of tablet 00:00: mouth (two) Medical times Branch daily with meals. carvediloL Yes [id number] 12.5mg Take 1 [facility] 12.5 mg 5-11 tablet by [facility] of tablet 00:00: mouth (two) Medical times Branch daily. fenofibrate Yes [id number] 200mg Take 1 [facility] micronized 5-11 capsule by [facility] of 200 mg 00:00: mouth [place] capsule 00 daily with Medica l breakfast. Branch pravastatin Yes [id number] 80mg Take 1 [facility] 80 mg 5-11 tablet by [facility] of tablet 00:00: mouth at [place] 00 bedtime. Medical Branch PARoxetine Yes [id number] 40mg Take 1 [facility] 40 mg 5-11 tablet by [facility] of tablet 00:00: mouth 00 daily. Medical Branch pantoprazol Yes [id number] 40mg Take 1 [facility] e 40 mg EC 5-11 tablet by [facility] of tablet 00:00: mouth [place] 00 every Medical morning. Branch metFORMIN 0 Yes [id number] 500mg Take 1 [facility] 500 mg 5-11 tablet by [facility] of tablet 00:00: mouth (two) Medical times Branch daily with meals. carvediloL 2021- Yes [id number] 12.5mg Take 1 [facility] 12.5 mg 5-11 tablet by [facility] of tablet 00:00: mouth 2 (two) Medical times Branch daily. ASPIRIN 81 0 Yes TAKE 1 [facility] rs mg EC 5-10 TABLET BY [facility] of tablet 00:00: MOUTH EVERY DAY Medical Branch ASPIRIN 81 2021-0 Yes TAKE 1 [facility] rs mg EC 5-10 TABLET BY ity of tablet 00:00: MOUTH 00 EVERY DAY Medical Branch ASPIRIN 81 2021-0 Yes TAKE 1 [facility] rs mg EC 5-10 TABLET BY ity of tablet 00:00: MOUTH EVERY DAY Medical Branch ASPIRIN 81 2021-0 Yes TAKE 1 [facility] rs mg EC 5-10 TABLET BY ity of tablet 00:00: MOUTH EVERY DAY Medical Branch ASPIRIN 81 2021-0 Yes TAKE 1 [facility] rs mg EC 5-10 TABLET BY ity of tablet 00:00: MOUTH EVERY DAY Medical Branch ASPIRIN 81 2021-0 Yes TAKE 1 [facility] rs mg EC 5-10 TABLET BY ity of tablet 00:00: MOUTH EVERY DAY Medical Branch ASPIRIN 81 2021-0 Yes TAKE 1 [facility] rs mg EC 5-10 TABLET BY [facility]y of tablet 00:00: MOUTH EVERY DAY Medical Branch ASPIRIN 81 2021-0 Yes TAKE 1 [facility] rs mg EC 5-10 TABLET BY [facility]y of tablet 00:00: MOUTH EVERY DAY Medical Branch ASPIRIN 81 2021-0 Yes TAKE 1 [facility] rs mg EC 5-10 TABLET BY ity of tablet 00:00: MOUTH EVERY DAY Medical Branch ASPIRIN 81 2021-0 Yes TAKE 1 [facility] rs mg EC 5-10 TABLET BY ity of tablet 00:00: MOUTH EVERY DAY Medical Branch ASPIRIN 81 2021-0 Yes TAKE 1 [facility] rs mg EC 5-10 TABLET BY ity of tablet 00:00: MOUTH EVERY DAY Medical Branch ASPIRIN 81 2021-0 Yes TAKE 1 [facility] rs mg EC 5-10 TABLET BY ity of tablet 00:00: MOUTH 00 EVERY DAY Medical Branch ASPIRIN 81 2021-0 Yes TAKE 1 [facility] rs mg EC 5-10 TABLET BY ity of tablet 00:00: MOUTH 00 EVERY DAY Medical Branch ASPIRIN 81 2021-0 Yes TAKE 1 [facility] rs mg EC 5-10 TABLET BY ity of tablet 00:00: MOUTH 00 EVERY DAY Medical Branch ASPIRIN 81 2021-0 Yes TAKE 1 [facility] rs mg EC 5-10 TABLET BY ity of tablet 00:00: MOUTH EVERY DAY Medical Branch ASPIRIN 81 2021-0 Yes TAKE 1 [facility] rs mg EC 5-10 TABLET BY ity of tablet 00:00: MOUTH [place] 00 EVERY DAY Medical Branch ASPIRIN 81 Yes TAKE 1 [facility] rs mg EC 5-10 TABLET BY ity of tablet 00:00: MOUTH [place] 00 EVERY DAY Medical Branch ASPIRIN 81 0 Yes TAKE 1 [facility] rs mg EC 5-10 TABLET BY ity of tablet 00:00: MOUTH [place] 00 EVERY DAY Medical Branch ASPIRIN 81 Yes TAKE 1 [facility] rs mg EC 5-10 TABLET BY ity of tablet 00:00: MOUTH [place] 00 EVERY DAY Medical Branch OXYBUTYNIN 2021- No [id number] TAKE 1 [facility] XL 5 mg 24 5-04 05-25 TABLET BY ity of hr tablet 00:00: 00:00 MOUTH [place] 00 :00 EVERY DAY Medical Branch apixaban Yes TAKE 1 [facility] (ELIQUIS) 5 5-02 TABLET BY ity of mg tablet 00:00: MOUTH [place] 00 TWICE A Medical DAY TO Branch 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 Indication s: TO 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 apixaban Yes TAKE 1 [facility] (ELIQUIS) 5 5-02 TABLET BY ity of mg tablet 00:00: MOUTH [place] 00 TWICE A Medical DAY TO Branch 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 Indication s: TO 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 apixaban Yes TAKE 1 [facility] (ELIQUIS) 5 5-02 TABLET BY ity of mg tablet 00:00: MOUTH [place] 00 TWICE A Medical DAY TO Branch 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 Indication s: TO 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 apixaban Yes TAKE 1 [facility] (ELIQUIS) 5 5-02 TABLET BY ity of mg tablet 00:00: MOUTH [place] 00 TWICE A Medical DAY TO Branch 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 Indication s: TO 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 apixaban Yes TAKE 1 [facility] (ELIQUIS) 5 5-02 TABLET BY ity of mg tablet 00:00: MOUTH [place] 00 TWICE A Medical DAY TO Branch 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 Indication s: TO 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 apixaban Yes TAKE 1 [facility] (ELIQUIS) 5 5-02 TABLET BY ity of mg tablet 00:00: MOUTH [place] 00 TWICE A Medical DAY TO Branch 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 Indication s: TO 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 apixaban Yes TAKE 1 [facility] (ELIQUIS) 5 5-02 TABLET BY ity of mg tablet 00:00: MOUTH [place] 00 TWICE A Medical DAY TO Branch 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 Indication s: TO 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 apixaban Yes TAKE 1 [facility] (ELIQUIS) 5 5-02 TABLET BY ity of mg tablet 00:00: MOUTH [place] 00 TWICE A Medical DAY TO Branch 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 Indication s: TO 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 apixaban Yes TAKE 1 [facility] (ELIQUIS) 5 5-02 TABLET BY ity of mg tablet 00:00: MOUTH [place] 00 TWICE A Medical DAY TO Branch 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 Indication s: TO 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 apixaban Yes TAKE 1 [facility] (ELIQUIS) 5 5-02 TABLET BY ity of mg tablet 00:00: MOUTH [place] 00 TWICE A Medical DAY TO Branch 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 Indication s: TO 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 apixaban Yes TAKE 1 [facility] (ELIQUIS) 5 5-02 TABLET BY ity of mg tablet 00:00: MOUTH [place] 00 TWICE A Medical DAY TO Branch 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 Indication s: TO 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 apixaban Yes TAKE 1 [facility] (ELIQUIS) 5 5-02 TABLET BY ity of mg tablet 00:00: MOUTH [place] 00 TWICE A Medical DAY TO Branch 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 Indication s: TO 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 apixaban Yes TAKE 1 [facility] (ELIQUIS) 5 5-02 TABLET BY ity of mg tablet 00:00: MOUTH [place] 00 TWICE A Medical DAY TO Branch 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 Indication s: chronic pain AMLODIPINE Yes [id number] TAKE 1 [facility] nivers 5 mg tablet 3-03 TABLET BY ity of 00:00: MOUTH [place] 00 EVERY DAY Medical Branch AMLODIPINE 0 Yes [id number] TAKE 1 U [facility]ivers 5 mg tablet 3-03 TABLET BY ity of 00:00: MOUTH [place] 00 EVERY DAY Medical Branch AMLODIPINE 0 Yes [id number] TAKE 1 U nivers 5 mg tablet 3-03 TABLET BY ity of 00:00: MOUTH [place] 00 EVERY DAY Medical Branch AMLODIPINE 0 2021- No [id number] TAKE 1 [facility] 5 mg tablet 3-03 -31 TABLET BY it y of 00:00: 00:00 MOUTH [place] 00 :00 EVERY DAY Medical Branch Immunizations Ordered Filled Immunization Date Status Comments [facility] Immunization Name Name SARS-COV-2 COVID-19 2022-04-03 Completed Unive rsity of PFIZER JILLIAN-SUCROSE 00:00:00 [employer] [facility] VACCINE (VENEGAS TOP) Branch SARS-COV-2 COVID-19 2022-04-03 Completed Unive rsity of [place] JILLIAN-SUCROSE 00:00:00 [facility] VACCINE (VENEGAS TOP) Branch SARS-COV-2 COVID-19 2022-04-03 Completed Unive rsity of PFIZER JILLIAN-SUCROSE 00:00:00 [place] [facility] VACCINE (VENEGAS TOP) Branch SARS-COV-2 COVID-19 2022-04-03 Completed Unive rsity of PFIZER JILLIAN-SUCROSE 00:00:00 [place] [facility] VACCINE (VENEGAS TOP) Branch SARS-COV-2 COVID-19 2022-04-03 Completed Unive rsity of PFIZER JILLIAN-SUCROSE 00:00:00 [place] [facility] VACCINE (VENEGAS TOP) Branch SARS-COV-2 COVID-19 2022-04-03 Completed Unive rsity of PFIZER JILLIAN-SUCROSE 00:00:00 [place] [facility] VACCINE (VENEGAS TOP) Branch SARS-COV-2 COVID-19 2022-04-03 Completed Unive rsity of PFIZER JILLIAN-SUCROSE 00:00:00 [place] [facility] VACCINE (VENEGAS TOP) Branch SARS-COV-2 COVID-19 2022-04-03 Completed Unive rsity of PFIZER JILLIAN-SUCROSE 00:00:00 [place] [facility] VACCINE (VENEGAS TOP) Branch SARS-COV-2 COVID-19 2022-04-03 Completed Unive rsity of PFIZER JILLIAN-SUCROSE 00:00:00 [place] [facility] VACCINE (VENEGAS TOP) Branch SARS-COV-2 COVID-19 2022-04-03 Completed Unive rsity of PFIZER JILLIAN-SUCROSE 00:00:00 [place] [facility] VACCINE (VENEGAS TOP) Branch SARS-COV-2 COVID-19 2022-04-03 Completed Unive rsity of PFIZER JILLIAN-SUCROSE 00:00:00 [place] [facility] VACCINE (VENEGAS TOP) Branch SARS-COV-2 COVID-19 2022-04-03 Completed Unive rsity of PFIZER JILLIAN-SUCROSE 00:00:00 [place] [facility] VACCINE (VENEGAS TOP) Branch SARS-COV-2 COVID-19 2022-04-03 Completed Unive rsity of PFIZER JILLIAN-SUCROSE 00:00:00 [place] [facility] VACCINE (VENEGAS TOP) Branch SARS-COV-2 COVID-19 2022-04-03 Completed Unive rsity of PFIZER JILLIAN-SUCROSE 00:00:00 [place] [facility] VACCINE (VENEGAS TOP) Branch SARS-COV-2 COVID-19 2022-04-03 Completed Unive rsity of PFIZER JILLIAN-SUCROSE 00:00:00 [place] [facility] VACCINE (VENEGAS TOP) Branch SARS-COV-2 COVID-19 2022-04-03 Completed Unive rsity of PFIZER JILLIAN-SUCROSE 00:00:00 [place] [facility] VACCINE (VENEGAS TOP) Branch SARS-COV-2 COVID-19 2022-04-03 Completed Unive rsity of PFIZER JILLIAN-SUCROSE 00:00:00 [place] [facility] VACCINE (VENEGAS TOP) Branch SARS-COV-2 COVID-19 2022-04-03 Completed Unive rsity of PFIZER JILLIAN-SUCROSE 00:00:00 [place] [facility] VACCINE (VENEGAS TOP) Branch SARS-COV-2 COVID-19 2022-04-03 Completed Unive rsity of PFIZER JILLIAN-SUCROSE 00:00:00 [place] [facility] VACCINE (VENEGAS TOP) Branch SARS-COV-2 COVID-19 2021-01-05 Completed Unive rsity of PFIZER VACCINE 00:00:00 [place] [facility] SARS-COV-2 COVID-19 2021-01-05 Completed Unive rsity of PFIZER VACCINE 00:00:00 [place] [facility] ale[facility]andra Branch SARS-COV-2 COVID-19 2021-01-05 Completed Unive rsity of PFIZER VACCINE 00:00:00 [place] [facility] ale[facility]andra Branch SARS-COV-2 COVID-19 2021-01-05 Completed Unive rsity of PFIZER VACCINE 00:00:00 [place] [facility] ale[facility]andra Branch SARS-COV-2 COVID-19 2021-01-05 Completed Unive rsity of PFIZER VACCINE 00:00:00 [place] [facility]andra Branch SARS-COV-2 COVID-19 2021-01-05 Completed Unive rsity of PFIZER VACCINE 00:00:00 [place] [facility] ale[facility]andra Branch SARS-COV-2 COVID-19 2021-01-05 Completed Unive rsity of PFIZER VACCINE 00:00:00 [place] [facility] SARS-COV-2 COVID-19 2021-01-05 Completed Unive rsity of PFIZER VACCINE 00:00:00 [place] [facility] ale[facility]andra Branch SARS-COV-2 COVID-19 2021-01-05 Completed Unive rsity of PFIZER VACCINE 00:00:00 [place] [facility]andra Branch SARS-COV-2 COVID-19 2021-01-05 Completed Unive rsity of PFIZER VACCINE 00:00:00 [place] [facility] ale[facility]andra Branch SARS-COV-2 COVID-19 2021-01-05 Completed Unive rsity of PFIZER VACCINE 00:00:00 [place] [facility] ale[facility]andra Branch SARS-COV-2 COVID-19 2021-01-05 Completed Unive rsity of PFIZER VACCINE 00:00:[address] [facility] Branch SARS-COV-2 COVID-19 2021-01-05 Completed Unive rsity of PFIZER VACCINE 00:00:[address] [facility] Branch SARS-COV-2 COVID-19 2021-01-05 Completed Unive rsity of PFIZER VACCINE 00:00:[address] [facility] Branch SARS-COV-2 COVID-19 2021-01-05 Completed Unive rsity of PFIZER VACCINE 00:00:[address] [facility] SARS-COV-2 COVID-19 2021-01-05 Completed Unive rsity of PFIZER VACCINE 00:00:[address] [facility] SARS-COV-2 COVID-19 2021-01-05 Completed Unive rsity of PFIZER VACCINE 00:00:[address] [facility] SARS-COV-2 COVID-19 2021-01-05 Completed Unive rsity of PFIZER VACCINE 00:00:[address] [facility] SARS-COV-2 COVID-19 2021-01-05 Completed Unive rsity of PFIZER VACCINE 00:00:[address] [facility] SARS-COV-2 COVID-19 2020-12-15 Completed Unive rsity of PFIZER VACCINE 00:00:[address] [facility] SARS-COV-2 COVID-19 2020-12-15 Completed Unive rsity of PFIZER VACCINE 00:00:[address] [facility] SARS-COV-2 COVID-19 2020-12-15 Completed Unive rsity of PFIZER VACCINE 00:00:[address] [facility] SARS-COV-2 COVID-19 2020-12-15 Completed Unive rsity of PFIZER VACCINE 00:00:[address] [facility] SARS-COV-2 COVID-19 2020-12-15 Completed Unive rsity of PFIZER VACCINE 00:00:[address] [facility] SARS-COV-2 COVID-19 2020-12-15 Completed Unive rsity of PFIZER VACCINE 00:00:[address] [facility] SARS-COV-2 COVID-19 2020-12-15 Completed Unive rsity of PFIZER VACCINE 00:00:00 [facility] SARS-COV-2 COVID-19 2020-12-15 Completed Unive rsity of PFIZER VACCINE 00:00:00 [facility] SARS-COV-2 COVID-19 2020-12-15 Completed Unive rsity of PFIZER VACCINE 00:00:00 [facility] SARS-COV-2 COVID-19 2020-12-15 Completed Unive rsity of PFIZER VACCINE 00:00:[address] [facility] SARS-COV-2 COVID-19 2020-12-15 Completed Unive rsity of PFIZER VACCINE 00:00:00 [facility] SARS-COV-2 COVID-19 2020-12-15 Completed Unive rsity of PFIZER VACCINE 00:00:[address] [facility] SARS-COV-2 COVID-19 2020-12-15 Completed Unive rsity of PFIZER VACCINE 00:00:00 [facility] SARS-COV-2 COVID-19 2020-12-15 Completed Unive rsity of PFIZER VACCINE 00:00:00 [facility] SARS-COV-2 COVID-19 2020-12-15 Completed Unive rsity of PFIZER VACCINE 00:00:00 [facility] SARS-COV-2 COVID-19 2020-12-15 Completed Unive rsity of PFIZER VACCINE 00:00:00 [facility] SARS-COV-2 COVID-19 2020-12-15 Completed Unive rsity of PFIZER VACCINE 00:00:00 [facility] SARS-COV-2 COVID-19 2020-12-15 Completed Unive rsity of PFIZER VACCINE 00:00:00 [facility] SARS-COV-2 COVID-19 2020-12-15 Completed Unive rsity of PFIZER VACCINE 00:00:00 [facility] Influenza High Dose 2020-08-24 Completed Unive rsity of 00:00:00 [facility] Influenza High Dose 2020-08-24 Completed Unive rsity of 00:00:00 [facility] Influenza High Dose 2020-08-24 Completed Unive rsity of 00:00:00 [facility] Influenza High Dose 2020-08-24 Completed Unive rsity of 00:00:00 [facility] Influenza High Dose 2020-08-24 Completed Unive rsity of 00:00:00 [facility] Influenza High Dose 2020-08-24 Completed Unive rsity of 00:00:00 [facility] Influenza High Dose 2020-08-24 Completed Unive rsity of 00:00:00 [facility] Influenza High Dose 2020-08-24 Completed Unive rsity of 00:00:00 [facility] Influenza High Dose 2020-08-24 Completed Unive rsity of 00:00:00 [facility] Influenza High Dose 2020-08-24 Completed Unive rsity of 00:00:00 [facility] Influenza High Dose 2020-08-24 Completed Unive rsity of 00:00:00 [facility] Influenza High Dose 2020-08-24 Completed Unive rsity of 00:00:00 [facility] Influenza High Dose 2020-08-24 Completed Unive rsity of 00:00:00 [facility] Influenza High Dose 2020-08-24 Completed Unive rsity of 00:00:00 [facility] Influenza High Dose 2020-08-24 Completed Unive rsity of 00:00:00 [facility] Influenza High Dose 2020-08-24 Completed Unive rsity of 00:00:00 [facility] Influenza High Dose 2020-08-24 Completed Unive rsity of 00:00:00 [facility] Influenza High Dose 2020-08-24 Completed Unive rsity of 00:00:00 [facility] Influenza High Dose 2020-08-24 Completed Unive rsity of 00:00:00 [facility] Vital Signs Vital Name Observation Time Observation Value Comments Source Heart rate 2022-07-17 65 /min University of 16:15:00 [facility] Respiratory rate 2022-07-17 18 /min University of 16:15:00 [facility] Oxygen saturation 2022-07-17 99 /min [facility] in Arterial blood 16:15:[address] [facility] by Pulse oximetry [place] Systolic blood 2022-07-17 196 mm[Hg] University of pressure 16:10:00 [facility] Diastolic blood 2022-07-17 63 mm[Hg] [place] o f pressure 16:10:00 [facility] Body temperature 2022-07-17 36.5 [place] University of 15:55:00 [facility] Body height 2022-07-17 162.6 cm University of 14:21:00 [facility] Body weight 2022-07-17 66.1 kg University of 14:21:00 [facility] BMI 2022-07-17 25.01 kg/m2 University of 14:21:00 [facility] Respiratory rate 2022-07-17 18 /min University of 15:52:00 [facility] Body height 2022-07-17 162.6 cm University of 14:21:00 [facility] Body weight 2022-07-17 66.1 kg University of 14:21:00 [facility] BMI 2022-07-17 25.01 kg/m2 University of 14:21:00 [facility] Systolic blood 2022-07-17 181 mm[Hg] University of pressure 14:00:00 [facility] Diastolic blood 2022-07-17 71 mm[Hg] University o f pressure 14:00:00 [facility] Heart rate 2022-07-17 71 /min University of 14:00:00 [facility] Body temperature 2022-07-17 37.06 [place] University of 13:53:00 [facility] Respiratory rate 2022-07-17 18 /min University of 13:53:00 [facility] Oxygen saturation 2022-07-17 99 /min University of in Arterial blood 13:53:00 [facility] aleksandra by Pulse oximetry Branch Systolic blood 2022-04-17 160 mm[Hg] Pt denies any University o f pressure 19:19:00 chest pain [facility] Diastolic blood 2022-04-17 75 mm[Hg] Pt denies any University of pressure 19:19:00 chest pain [facility] Heart rate 2022-04-17 64 /min University of 19:03:00 [facility] Body temperature 2022-04-17 36.06 [place] University of 19:03:00 [facility] Respiratory rate 2022-04-17 18 /min University of 19:03:00 [facility] Body height 2022-04-17 162.6 cm University of 19:03:00 [facility] Body weight 2022-04-17 66.134 kg University of 19:03:00 [facility] BMI 2022-04-17 25.03 kg/m2 University of 19:03:00 [facility] Oxygen saturation 2022-04-17 99 /min University of in Arterial blood 19:03:00 [facility] aleksandra by Pulse oximetry Branch Procedures Procedure Date / Time Performing Source Performed Clinician PHACOEMULSIFICATION OF 2022-07-17 Vince Lopez [facility] CATARACT WITH INTRAOCULAR 15:16:00 Medica l [place] LENS IMPLANT POCT GLUCOSE (AUTOMATED) 2022-07-17 Vince Lopez [facility] 13:59:00 Medical Branch POCT GLUCOSE (AUTOMATED) 2022-07-17 Vince Lopez [facility] 13:59:00 Medical [place] ASSIGNMENT OF BENEFITS 2022-07-15 Doctor Unassigned, [facility] 17:44:10 [employer] [facility] URINALYSIS 2022-04-17 [facility] [place] 20:40:00 Medical Branch POCT URINALYSIS AUTO 2022-04-17 [facility] 00:00:00 Medical Branch Encounters Start End Encounter Admission Attending Care Care Encounter Source Date/Time Date/Time Type Type Clinicians Facility Department ID 2021-09-24 Outpatient Chris LOPEZ [facility] OPH [id number] Univers 17:46:08 VINCE [facility] 2021-09-21 Emergency [facility] [id number] Univers 14:52:11 [facility] 2022-09-24 2022-09-24 Outpatient Chris VERAS [facility] [id number] Univers 14:30:00 14:30:00 EFFIE [facility] 2022-09-23 2022-09-23 Outpatient Chris SERRATO [facility] [id number] Univers 12:15:00 12:15:00 [facility] 2022-09-23 2022-09-23 [facility]phone [facility] [id number] Univers 00:00:00 00:00:00 [facility] 350.1.13.10 it y of [place] 4.2.7.2.686 Denis as RAF?BLEA [phone] [address] MEDICAL OFFICE [facility] 2022-08-19 2022-08-19 [facility]ill [facility] 1.2.840.114 [id number] Univers 00:00:00 00:00:00 [facility] 350.1.13.10 it y of [place] 4.2.7.2.686 Denis as RAF?BLEA [phone] [address] MEDICAL OFFICE [facility] 2022-08-17 2022-08-17 Refill [facility] 1.2.840.114 [id number] Univers 00:00:00 00:00:00 Queenie BELTRAN 350.1.13.10 ity of [place].7.[place] [id number] Ca dical [facility] 204 [facility] 2022-07-29 2022-07-29 Refalejo [facility] 1.2.840.114 [id number] Univers 00:00:00 00:00:00 Roger HEALTH 350.1.13.10 it y of [place] 4.2.7.2.686 Denis as RAF?BLEA [phone] [facility] 044 [facility] 2022-07-29 2022-07-29 [facility] 1.2.840.114 [id number] Univers 00:00:00 00:00:00 Queenie BELTRAN 350.1.13.10 it[facility] 4.2.7.2.[place] [id number] [facility] 204 [facility] 2022-07-17 2022-07-17 Outpatient R [facility] OPH [id number] Univers 08:35:00 11:43:00 VINCE ity of [facility] 2022-07-17 2022-07-[address] [facility] [id number] Univers 08:35:00 11:43:00 Encounter Vince BELTRAN 350.1.13.10 ity of [place].2.7.2.[place] SURGICAL [id number] [facility] 071 [place] 2022-07-17 2022-07-17 Anesthesia Abdiel Martínez [facility] 1.2.840.11 [id number] Univers 10:21:00 10:58:00 Event Michael Lema 35 0.1.13.10 ity of [place] 4.2.7.2.[place] SUR[place]ICAL [id number] [facility] 020 [place] 2022-07-17 2022-07-[address] [facility] 1.2.840.114 [id number] Univers 09:32:00 10:06:00 Vince BELTRAN 350.1.13.10 ity [facility] 4.2.7.2.686 [place]ICAL [id number] [facility] 020 [place] 2022-07-15 2022-07-15 Glue Clamp Operator Britney Johnson Lab Main [facility] 1.2.8 40.114 [id number] Univers 13:45:00 14:00:00 Visit Vince Lopez 350.1.13.1 0 ity of [facility] 4.2.7.2.[place] [id number] [facility] 353 [facility] 2022-07-15 2022-07-15 [facility] [id number] Univers 13:45:00 13:45:00 VINCE itvanessa [facility] 2022-07-15 2022-07-15 Orders Doctor AWAIS 1.2.840.114 [id number] Univers 00:00:00 00:00:00 Only Unassigned, ELVIA 350.1.13.10 ity of [employer] [facility] 4.2.7.2.686 Denis as [id number] [address] 2022-07-15 2022-07-15 Refalejo [facility] 1.2.840.114 [id number] Univers 00:00:00 00:00:00 Roger HEALTH 350.1.13.10 it y of [place] 4.2.7.2.686 Denis as RAF?BLEA [phone] [facility] 044 [facility] OFFICE [facility] 2022-07-01 2022-07-01 Laney [facility] 1.2.840.114 [id number] Univers 00:00:00 00:00:00 Roger HEALTH 350.1.13.10 it y of [place] 4.2.7.2.686 Dneis as RAF?BLEA [phone] [facility] 044 [facility] OFFICE [facility] 2022-07-01 2022-07-01 Laney [facility] 1.2.840.114 [id number] Univers 00:00:00 00:00:00 Queenie BELTRAN 350.1.13.10 ity of [facility] 4.2.[place].2.[place] [id number] Ca dical NAL 204 [facility] 2022-06-12 2022-06-12 Outpatient [facility] [id number] Univers 11:30:00 11:30:00 QUEENIE berumen [facility] 2022-06-11 2022-06-11 Wendyalejo [facility]atoGU[facility] 1.2.840.114 [id number] Univers 00:00:00 00:00:00 [facility] 350.1.13.10 it y of [place] 4.2.7.2.686 Denis as RAF?BLEA [phone] Ca dical EZRA [address] [place] [address] 2022-05-29 2022-05-29 Outpatient R [facility] [id number] Univers 13:30:00 13:30:00 QUEENIE berumen [facility] 2022-05-13 2022-05-13 [facility] 1.2.840.114 [id number] Univers 00:00:00 00:00:00 [facility] 350.1.13.10 it y of [place] 4.2.7.2.686 Denis as RAF?BLEA [phone] Ca dical EZRA [address] [place] [address] 2022-04-23 2022-04-23 [facility] 1.2.840.114 [id number] Univers 00:00:00 00:00:00 [facility] 350.1.13.10 it y of [place] 4.2.7.2.686 Denis as RAF?BLEA [phone] Ca dical EZRA 044 [facility] 2022-04-23 2022-04-23 Telephone [facility] 1.2.840.114 [id number] Univers 00:00:00 00:00:00 [facility] 350.1.13.10 ity [facility] 4.2.7.2.[place] CHRISTELLEIO [phone] Ca dical NAL 204 [facility] 2022-04-23 2022-04-23 Laney [facility] 1.2.840.114 [id number] Univers 00:00:00 00:00:00 [facility] 350.1.13.10 it y of [place] 4.2.7.2.686 Denis as RAF?BLEA [phone] [facility] MATIAS 044 [facility] OFFICE [facility] 2022-04-17 2022-04-17 Outpatient R MARIA ELENA [facility] [id number] Univers 14:00:00 14:45:45 QUEENIE oconnor o [facility] 2022-04-17 2022-04-17 Office Maria [facility]GU[facility]AL[facility] 1.2.840.114 [id number] Univers 14:00:00 14:45:45 Visit Queenie BELTRAN 350.1.13.10 ity of [facility] 4.2.7.2.[place] [id number] [facility] 204 [facility] 2022-04-17 2022-04-17 Outpatient R [facility] [id number] Univers 14:00:00 14:00:00 QUEENIE roseannevanessa jamaica [facility] 2022-04-03 2022-04-03 Imm/Inj Vaccine, [facility] Medicine [facility] 1.2.840.114 [id number] Univers 16:00:00 16:10:00 Visit SerratoRoger 350.1.13.10 ity of [facility] 4.2.7.2.[place] [id number] [address] 2022-04-03 2022-04-03 Outpatient Chris SERRATO [facility] [id number] Univers 16:00:00 16:00:00 ROGER oconnor [facility] 2022-04-03 2022-04-03 Office [facility] 1.2.840.114 [id number] Univers 13:15:00 13:30:00 Visit Roger [facility] 350.1.13.10 it y of [place] 4.2.7.2.686 Denis as RAF?BLEA [phone] [address] OFFICE [facility] 2022-04-03 2022-04-03 Outpatient Chris SERRATO [facility] [id number] Univers 13:15:00 13:15:00 ROGER oconnor [facility] 2022-04-03 2022-04-03 Outpatient Chris SERRATO [facility] [id number] Univers 13:15:00 13:15:00 ROGER oconnor [facility] 2022-04-02 2022-04-02 Laney [facility] 1.2.840.114 [id number] Univers 00:00:00 00:00:00 [facility] 350.1.13.10 it y of [place] 4.2.7.2.686 Denis as RAF?BLEA [phone] [address] OFFICE [facility] 2022-03-26 2022-03-26 Laney [facility] 1.2.840.114 [id number] Univers 00:00:00 00:00:00 Roger HEALTH 350.1.13.10 it y of [place] 4.2.7.2.686 Denis as RAF?BLEA [id number] [address] 2022-03-25 2022-03-25 Laney [facility] 1.2.840.114 [id number] Univers 00:00:00 00:00:00 [place] HEALTH 350.1.13.10 it y of [place] 4.2.7.2.686 Denis as RAF?BLEA [id number] [address] 2022-03-23 2022-03-23 Laney [facility]AL[facility] 1.2.840.114 [id number] Univers 00:00:00 00:00:00 [place] HEALTH 350.1.13.10 it y of [place] 4.2.7.2.686 Denis as RAF?BLEA [id number] [address] 2022-03-13 2022-03-13 Outpatient Chris SERRATO [facility] [id number] Univers 13:45:00 13:45:00 ROGER croninvanessa [facility] 2022-02-20 2022-02-20 Laney [facility] 1.2.840.114 [id number] Univers 00:00:00 00:00:00 Roger HEALTH 350.1.13.10 it y of [place] 4.2.7.2.686 Denis as RAF?BLEA [id number] Ca sandip STODDARD [address] [place] [address] OFFICE [facility] 2022-02-19 2022-02-19 [facility] 1.2.840.114 [id number] Univers 00:00:00 00:00:00 Roger HEALTH 350.1.13.10 it y of [place] 4.2.7.2.686 Denis as RAF?BLEA [phone] Ca sandip STODDARD [address] [place] [address] OFFICE [facility] 2021-12-27 2021-12-27 [facility] 1.2.840.114 [id number] Univers 00:00:00 00:00:00 Roger HEALTH 350.1.13.10 it y of [place] 4.2.7.2.686 Denis as RAF?BLEA [phone] Ca sandip STODDARD [address] [place] [address] OFFICE [facility] 2021-12-26 2021-12-26 Telephone [facility] [id number] Univers 00:00:00 00:00:00 Roger HEALTH 350.1.13.10 it y of [place] 4.2.7.2.686 Denis as RAF?BLEA [phone] Ca sandip STODDARD [address] [place] [address] OFFICE [facility] 2021-12-18 2021-12-18 [facility] 1.2.840.114 [id number] Univers 00:00:00 00:00:00 Roger HEALTH 350.1.13.10 it y of [place] 4.2.7.2.686 Denis as RAF?BLEA [phone] Ca sandip STODDARD [address] [place] [address] OFFICE [facility] 2021-11-20 2021-11-20 Telephone [facility] [id number] Univers 00:00:00 00:00:00 Roger HEALTH 350.1.13.10 it y of [place] 4.2.7.2.686 Denis as RAF?BLEA [phone] Ca sandip STODDARD [address] [place] [address] OFFICE [facility] 2021-10-22 2021-10-22 Telephone [facility] [id number] Univers 00:00:00 00:00:00 [facility] 350.1.13.10 it y of [place] 4.2.7.2.686 Denis as RAF?BLEA [id number] [address] OFFICE [facility] 2021-10-01 2021-10-01 [facility] 1.2.840.114 [id number] Univers 00:00:00 00:00:00 Roger HEALTH 350.1.13.10 it y of [place] 4.2.7.2.686 Denis as RAF?BLEA [id number] [address] OFFICE [facility] 2021-09-27 2021-09-27 [facility] 1.2.840.114 [id number] Univers 00:00:00 00:00:00 Roger HEALTH 350.1.13.10 it y of [place] 4.2.7.2.686 Denis as RAF?BLEA [id number] [address] OFFICE [facility] 2021-09-26 2021-09-26 Outpatient Chris SERRATO [facility] [id number] Univers 14:00:00 14:05:04 [facility] 2021-09-26 2021-09-26 Outpatient Chris SERRATO [facility] [id number] Univers 14:00:00 14:00:00 [facility] 2021-09-26 2021-09-26 Office [facility] 1.2.840.114 [id number] Univers 13:26:07 13:41:07 Visit [facility] 350.1.13.10 it y of [place] 4.2.7.2.686 Denis as RAF?BLEA [id number] [address] OFFICE [facility] 2021-09-19 2021-09-19 Outpatient Chris SERRATO [facility] [id number] Univers 13:15:00 13:15:00 [facility] 2021-09-19 2021-09-19 [facility] 1.2.840.114 [id number] Univers 00:00:00 00:00:00 [facility] 350.1.13.10 it y of [place] 4.2.7.2.686 Denis as Raf?Blea [phone] Ca sandip [address] Medical Office Building 2021-09-07 2021-09-07 Orders Doctor AWAIS 1.2.840.114 [id number] Univers 00:00:00 00:00:00 Only Unassigned, ELVIA 350.1.13.10 ity of [employer] [facility] 4.2.7.2.686 Denis as [id number] [address] 2021-08-20 2021-08-20 Telephone [facility] [id number] Univers 00:00:00 00:00:00 [facility] 350.1.13.10 it y of [place] 4.2.7.2.686 Denis as Raf?Blea [phone] [facility] [address] [place] [address] Medical Office Building 2021-08-12 2021-08-12 Refill [facility] 1.2.840.114 [id number] Univers 00:00:00 00:00:00 [facility] 350.1.13.10 it y of [place] 4.2.7.2.686 Denis as Professio [phone] [address] Office Building One 2021-07-25 2021-07-25 [facility] 1.2.243.042 [id number] Univers 06:36:00 09:28:00 Encounter Vince Beltran 350.1.13.10 ity of [place] [phone] [facility] 0[address] [place] 2021-07-25 2021-07-[address] [facility] 1.2.840.114 [id number] Univers 07:30:00 08:11:00 Vince Beltran 350.1.13.10 ity of [place] 4[place]2.[place].2.[place] [id number] [facility] 020 Branch 2021-07-24 2021-07-24 Laboratory Only, Adc Test [facility] 1.2.840. 114 [id number] Univers 10:16:59 10:31:59 Only Vince Lopez 350.1.13.1 0 ity of [place] 4.2.7.2.[place] [id number] [address] 2021-07-24 2021-07-24 Outpatient R JOHN [facility] [id number] Univers 10:15:00 10:15:00 VINCE oconnor [facility] 2021-07-23 2021-07-23 Telephone Ama [facility] 1.2.351.229 [id number] Univers 00:00:00 00:00:00 Roger [employer] 350.1.13.10 it y of [place] 4.2.7.2.686 Denis as Raf?Blea [phone] [address] Medical Office [facility] 2021-07-20 2021-07-20 Glue Clamp Operator Elizabeth, [facility] Lab Main [facility] 1.2.8 40.114 [id number] Univers 12:50:28 13:05:28 Visit Vince Lopez 350.1.13.1 0 ity of [place] 4[place]2.[place].2.[place] [facility] [phone] [address] 2021-07-20 2021-07-20 Outpatient R JOHN [facility] [id number] Univers 13:00:00 13:00:00 VINCE oconnor [facility] 2021-07-20 2021-07-20 Orders Doctor ERNANDEZ [id number] Univers 00:00:00 00:00:00 Only Unassigned, ELVIA 350.1.13.10 ity of [place] [employer] [facility] 4.2.7.2.686 Denis as [phone] [address] 2021-07-18 2021-07-18 [facility] [id number] Univers 13:32:13 13:47:13 Visit [facility] 350.1.13.10 it y of [place] 4.2.7.2.686 Denis as Raf?Blea [phone] [address] Medical Office [facility] 2021-07-18 2021-07-18 Outpatient [facility] [id number] Univers 13:30:00 13:30:00 [facility] 2021-06-06 2021-06-06 Orders Doctor AWAIS [id number] Univers 00:00:00 00:00:00 Only Unassigned, ELVIA [id number] [employer] [facility] [id number] Denis as [phone] [address] 2021-03-21 2021-03-21 Outpatient Chris SERRATO [facility] [id number] Univers 13:00:00 13:00:00 [facility] 2021-01-05 2021-01-05 Outpatient Chris CONNER [facility] [id number] Univers 12:30:00 12:30:00 [facility] 2020-12-20 2020-12-20 [facility] [id number] Univers 13:00:00 13:00:00 [facility] 2020-12-15 2020-12-15 Outpatient Chris CONNER [facility] [id number] Univers 12:30:00 12:30:00 [facility] 2020-12-07 2020-12-07 [facility] [id number] Univers 14:10:00 14:10:00 [facility] 2020-11-08 2020-11-08 [facility] [id number] Univers 14:15:00 14:15:00 [facility] 2020-10-26 2020-10-26 Outpatient R [facility] [id number] Univers 13:00:00 13:00:00 [facility] 2020-08-29 2020-08-29 Outpatient Chris SERRATO [facility] [id number] Univers 10:00:00 10:00:00 [facility] 2020-04-24 2020-04-24 Outpatient Chris PADILLA [facility] [id number] Univers [facility]:00[facility]00 [facility] 2020-03-13 Outpatient Chris SERRATO [facility] [id number] Univers 10:00:00 10:00:00 [facility] 2020-03-01 2020-03-01 Outpatient Chris SERRATO [facility] [id number] Univers 13:15:00 13:15:00 [facility] 2019-12-01 2019-12-01 Emergency X FABY, [facility] ERT [id number] Univers 17:26:13 21:43:00 NICOLETTE [facility] Results Test Description Test Time Test Comments Results Result Comments Source POCT GLUCOSE (AUTOMATED) 2022-07-17 14:01:47 Test Item Value Reference Range Interpretation Comme nts POCT GLU (test code = 3777984074) 92 mg/dL 70-110 Lab Interpretation (test code = 60776-8) [facility] 14:01:47 Test Item Value Reference Range Interpretation Comments POCT GLU (test code = [id number]) 92 mg/dL 70-110 Lab Interpretation (test code = Normal 86023-0) [facility] [id number] 19:19:00 Test Item Value Reference Range Interpretation Comments POCT U SP GRAV (test code = 1.015 mg/dl 1.005-1.025 3255) POCT PH U (test code = 3254) 5.5 mg/dl 5-8 POCT U LEUK EST (test code = Small Negative - Negative 3263) POCT U NIT (test code = Negative Negative - Negative 3262) POCT U PROT (test code = Trace Negative - Negative 3259) POCT U GLU (test code = Negative Negative - Negative 3256) POCT U KETONE (test code = Negative Negative - Negative 3258) POCT U UROBILI (test code = 1.0 mg/dl 0.2-1 3260) POCT U BILI (test code = Negative Negative - Negative 3261) POCT U BLD (test code = Trace-intact Negative - Negative 3257) POCT U COLOR (test code = Yellow 3266) POCT U APPEAR (test code = Clear 3267) Lab Interpretation (test Abnormal code = 02775-4) [facility]
[2022-10-09 20:10] LABS: Urine Blood Negative (Negative); Urine Glucose Negative (Negative); Urine Protein Trace (Negative); Urine pH 5.5 (5.0-7.0)
[2022-10-09 20:13] LABS: Absolute Lymphocytes (CBC) 1.4 K/uL (0.7-4.9); Hematocrit 29.8 % (36.0-45.0); Lymphocytes % 18.9 % (15.3-44.8); MCV 93.3 fL (80-100); MPV 8.6 fL (7.6-11.3)
[2022-10-09] MEDS ORDERED: NA CHLORIDE 0.9% 1,000 ML ONE (20:33)
[2022-10-09] MEDS ORDERED: ONDANSETRON 4 MG/2 ML VIAL ONE (20:33)
[2022-10-09 20:48] LABS: SARS-COV-2 RT PCR NEGATIVE (NEGATIVE)
[2022-10-09 21:18] LABS: Specific Gravity 1.011 (1.005-1.030); Urine Bacteria 20-50 /HPF (<20); Urine Bilirubin NEGATIVE (Negative); Urine Blood Negative (Negative); Urine Clarity Turbid (Clear); Urine Color Light-Yellow (Yellow); Urine Glucose NEGATIVE (Negative); Urine Mucus Slight /HPF (None Seen); Urine Protein TRACE (Negative); Urine RBC <5 /HPF (None Seen); Urine Urobilinogen Normal (Normal); Urine WBC Clump Rare /HPF (None Seen)
[2022-10-09 21:20] LABS: ALT/SGPT 21 U/L (12-78); AST/SGOT 34 U/L (15-37); Albumin 2.4 g/dL (3.4-5.0); Alkaline Phosphatase 38 U/L (45-117); BUN Blood Urea Nitrogen 18 mg/dL (7-18); Bicarbonate 28 mmol/L (21-32); Bilirubin Total 0.9 mg/dL (0.2-1.0); Glomerular Filtration Rate 53 ml/min (=/>90); Glucose Level 117 mg/dL (74-106); Lipase 90 U/L (73-393); Protein, Total 5.9 g/dL (6.4-8.2); Sodium Level 144 mmol/L (136-145)
--- NOTE | 2022-10-09 21:20 | RAD REPORT ---
EXAM DESCRIPTION: RAD - Chest Single View - 10/09/2022 9:05 pm CLINICAL HISTORY: CHEST PAIN Chest pain. COMPARISON: CHEST SINGLE VIEW dated 11/25/2011; CHEST PA AND LAT 2 VIEW dated 07/17/2009 FINDINGS: Portable technique limits examination quality. Interstitial markings are mildly prominent, greater on the left. This may indicate mild asymmetric in terstitial pulmonary edema. The heart is mildly enlarged in size. No displaced fractures.
[2022-10-09 21:25] LABS: Potassium 2.4 mmol/L (3.5-5.1); Troponin High Sensitivity 159.6 pg/mL (<58.9)
[2022-10-09 21:26] LABS: Magnesium < 0.5 mg/dL (1.8-2.4)
--- NOTE | 2022-10-09 22:04 | RAD REPORT ---
EXAM DESCRIPTION: CTAbdomen Pelvis W Contrast - 10/09/2022 9:55 pm CLINICAL HISTORY: Abdominal pain. Abdominal pain, acute, nonlocalized COMPARISON: Abdomen Pelvis W Contrast dated 02/16/2019 TECHNIQUE: Biphasic CT imaging of the abdomen and pelvis was performed with 100 ml non-ionic IV cont rast. All CT scans are performed using dose optimization technique as appropriate and may include automated exposure control or mA/KV adjustment according to patient size. FINDINGS: The lung bases are clear. Several small hepatic lesions are present likely representing small benign cysts. Cholecystectomy. Sm all hiatal hernia. The spleen, pancreas, adrenal glands and kidneys show no worrisome abnormality. Mild free fluid is seen in the right upper quadrant along the right liver edge. Trace free fluid is a lso seen in the pelvis. There is enhancement of the rectosigmoid colon present. Sigmoid diverticulosi s coli without diverticulitis. Nonvisualized appendix. Small fat containing bilateral inguinal hernia s. No evidence of significant lymphadenopathy. Moderate lumbar degenerative changes. IMPRESSION: Mild to moderate rectosigmoid colitis pattern.
[2022-10-09] MEDS ORDERED: KCL 20 MEQ/100 mL IVPB 100 ML IV ONE (22:23)
[2022-10-09] MEDS ORDERED: PIPERACIL/TAZO 3.375 GM VIAL IV ONE (22:24)
[2022-10-09] MEDS ORDERED: NA CHLORIDE 0.9% 100 ML IV ONE (22:24)
[2022-10-09] MEDS ORDERED: Magnesium Sulfate 2gm IVPB 2 G/50 ML BAG IV ONE (22:24)
--- NOTE | 2022-10-09 22:42 | ER ---
Nurse's Notes [facility] Name: Lucille Padron Age: 82 yrs Sex: Female : 1940 Arrival Date: 10/09/2022 Time: 19:18 Bed 23 Private MD: Diagnosis: Left sided colitis;Hypokalemia;Hypomagnesemia Presentation: 10/09 19:21 Chief complaint: EMS states: "Patient has been having abdominal pain nausea, vomiting em6 and diarrhea for 3 days. we started a 20 G in the left AC gave her 250 mL of NS and 10 mg of Reglan. patient has history of DM and HTN. BGL was 139. VS stable.". Coronavirus screen: Client denies travel out of the [place] in the last 14 days. Ebola Screen: Patient negative for fever greater than or equal to 101.5 degrees Fahrenheit, and additional compatible Ebola Virus Disease symptoms. Initial Sepsis Screen: Does the patient meet any 2 criteria? No. Patient's initial sepsis screen is negative. Does the patient have a suspected source of infection? No. Patient's initial sepsis screen is negative. Risk Assessment: Do you want to hurt yourself or someone else? Patient reports no desire to harm self or others. Onset of symptoms was October 06, 2022. 19:21 Method Of Arrival: EMS: [facility] em6 19:21 Acuity: JONATHAN 3 em6 Triage Assessment: 19:19 General: Appears in no apparent distress. Behavior is cooperative. Pain: Complains of em6 pain in abdomen Pain does not radiate. Pain currently is 4 out of 10 on a pain scale. Quality of pain is described as crampy, Pain began 09/25/22. EENT: No signs and/or symptoms were reported regarding the EENT system. Neuro: Level of Consciousness is awake, alert, obeys commands, Oriented to person, place, time, situation. Cardiovascular: Patient's skin is warm and dry. Respiratory: Airway is patent Respiratory effort is even, unlabored, Respiratory pattern is regular, symmetrical, Breath sounds are clear bilaterally. GI: Abdomen is non-distended, Abd is soft and non tender X 4 quads. : No signs and/or symptoms were reported regarding the genitourinary system. Derm: No signs and/or symptoms reported regarding the dermatologic system. Musculoskeletal: Circulation, motion, and sensation intact. Swelling present in right leg and left leg. Historical: - Allergies: 21:48 No Known Allergies; kb3 - Home Meds: 19:33 metformin 500 mg Oral tab 1 tab 2 times per day [Active]; Eliquis oral [Active]; em6 - PMHx: 21:48 CAD; NIDDM; kb3 - Immunization history:: Adult Immunizations up to date. - Social history:: Smoking status: Patient denies any tobacco usage or history of. - Family history:: not pertinent. Screenin:32 Abuse screen: Denies threats or abuse. Nutritional screening: No deficits noted. em6 Tuberculosis screening: No symptoms or risk factors identified. Fall Risk IV access (20 points). Total Martinez Fall Scale indicates No Risk (0-24 pts). Assessment: 19:30 General: Appears in no apparent distress. Behavior is calm, cooperative, NAD, see kb3 triage notes. 19:30 GI: Reports diarrhea, nausea, vomiting. kb3 21:45 General: Updated pt's daughter Ashlee via telephone. She is available by phone if ny kb3 questions or updates, . Vital Signs: 19:21 BP 177 / 84; Pulse 88; Resp 18; Temp 98.4; Pulse Ox 100% on R/A; Weight 56.7 kg; Height em6 5 ft. 4 in. (162.56 cm); Pain 4/10; 20:00 BP 176 / 74; Pulse 92; Resp 20; Pulse Ox 100% ; kb3 20:45 BP 171 / 85; Pulse 92; Resp 18; Pulse Ox 97% ; kb3 19:21 Body Mass Index 21.46 (56.70 kg, 162.56 cm) em6 ED Course: 19:18 Patient arrived in ED. em6 19:20 Bora Knowles MD is Attending Physician. rt 19:29 Triage completed. em6 19:30 No provider procedures requiring assistance completed. Maintain EMS IV. Dressing kb3 intact. Good blood return noted. Site clean \\T\\ dry. Gauge \\T\\ site: 20G LAC. 19:33 Arm band placed on. em6 19:34 Bed in low position. Call light in reach. Side rails up X2. Pulse ox on. NIBP on. Warm em6 blanket given. 19:47 Nesha Velasquez, RN is Primary Nurse. kb3 20:11 COVID-19/FLU A+B Sent. kb3 21:06 Chest Single View XRAY In Process Unspecified. EDMS 21:57 Abdomen In Process Unspecified. EDMS 22:40 Rebecca Telles PA-C is Hospitalizing Provider. rt Administered Medications: 20:30 Drug: NS 0.9% 1000 ml Route: IV; Rate: 1 bolus; Site: left antecubital; kb3 20:30 Drug: Zofran (Ondansetron) 4 mg Route: IVP; Site: left antecubital; kb3 22:06 CANCELLED (Physician Discretion): Rocephin (cefTRIAXone) 2 grams IV at calculated rate rt once; Given slow IV push per pharmarcy instructions 22:32 Drug: Zosyn (piperacillin-tazobactam) 3.375 grams Route: IVPB; Infused Over: 60 mins; em6 Site: left antecubital; 23:45 Follow up: Response: No adverse reaction; IV Status: Completed infusion; IV Intake: em6 100ml 23:45 Drug: Magnesium Sulfate 2 grams Route: IVPB; Infused Over: 2 hrs; Site: left em6 antecubital; 23:45 Drug: Potassium Chloride 20 mEq Route: IV; Rate: calculated rate; Site: left em6 antecubital; Medication: 19:30 VIS not applicable for this client. kb3 Intake: 23:45 IV: 100ml; Total: 100ml. em6 Outcome: 22:41 Decision to Hospitalize by Provider. rt 10/10 18:38 Patient left the ED. ss Signatures: Dispatcher [employer] EDRI Antoinette Orourke RN RN ss Kayleen Duarte RN RN em6 Nesha Velasquez, RN RN kb3 Bora Knowles MD MD rt Corrections: (The following items were deleted from the chart) 10/09 19:33 19:19 Musculoskeletal: Circulation, motion, and sensation intact. em6 em6 19:34 19:33 PMHx: Hypertension; em6 em6 19:34 19:33 PMHx: Diabetes - NIDDM; em6 em6 21:48 19:33 Allergies: No Known Allergies; em6 kb3 21:48 21:47 Allergies: NIDDM; kb3 kb3 21:48 21:47 Allergies: CAD; kb3 kb3
--- NOTE | 2022-10-09 22:42 | EDPHYS ---
Physician Documentation [facility] Name: Lucille Padron Age: 82 yrs Sex: Female : 1940 Arrival Date: 10/09/2022 Time: 19:18 Bed 23 Private MD: ED Physician Bora Knowles HPI: 10/09 19:46 This 82 yrs old Female presents to ER via EMS with complaints of rt Nausea/Vomiting/Diarrhea. 19:46 The patient presents to the emergency department with nausea, vomiting, diarrhea, rt abdominal pain. Onset: The symptoms/episode began/occurred 4 day(s) ago. Possible causes: unknown. The symptoms are aggravated by nothing. The symptoms are alleviated by nothing. Associated signs and symptoms: Pertinent positives: abdominal pain, diarrhea. Severity of symptoms: At their worst the symptoms were moderate. Presents to the ED with about 4 days of nausea, vomiting, diarrhea, generalized abdominal pain. She reports a burning indigestion type chest pain. She denies aggravating or alleviating factors. She associates this to the flu shot which she had about 1 week ago. She states that she is been feeling somewhat weak. Denies hematemesis, hematochezia. She does report a urinary frequency. Symptoms are moderate severity, no other aggravating alleviating factors.. Historical: - Allergies: 21:48 No Known Allergies; kb3 - Home Meds: 19:33 metformin 500 mg Oral tab 1 tab 2 times per day [Active]; Eliquis oral [Active]; em6 - PMHx: 21:48 CAD; NIDDM; kb3 - Immunization history:: Adult Immunizations up to date. - Social history:: Smoking status: Patient denies any tobacco usage or history of. - Family history:: not pertinent. ROS: 19:46 Constitutional: Negative for fever, chills, and weight loss, Eyes: Negative for injury, rt pain, redness, and discharge, ENT: Negative for injury, pain, and discharge, Neck: Negative for injury, pain, and swelling, Respiratory: Negative for shortness of breath, cough, wheezing, and pleuritic chest pain. 19:46 MS/Extremity: Negative for injury and deformity, Skin: Negative for injury, rash, and discoloration, Neuro: Negative for headache, weakness, numbness, tingling, and seizure, Psych: Negative for depression, anxiety, suicide ideation, homicidal ideation, and hallucinations. 19:46 Cardiovascular: Positive for chest pain, Negative for edema. 19:46 Abdomen/GI: Positive for abdominal pain, nausea, vomiting, and diarrhea. 19:46 : Positive for urinary frequency, Negative for burning with urination. Exam: 19:46 Constitutional: This is a well developed, well nourished patient who is awake, alert, rt and in no acute distress. Head/Face: Normocephalic, atraumatic. Eyes: Pupils equal round and reactive to light, extra-ocular motions intact. Lids and lashes normal. Conjunctiva and sclera are non-icteric and not injected. Cornea within normal limits. Periorbital areas with no swelling, redness, or edema. ENT: Nares patent. No nasal discharge, no septal abnormalities noted. Tympanic membranes are normal and external auditory canals are clear. Oropharynx with no redness, swelling, or masses, exudates, or evidence of obstruction, uvula midline. Mucous membranes moist. Neck: Trachea midline, no thyromegaly or masses palpated, and no cervical lymphadenopathy. Supple, full range of motion without nuchal rigidity, or vertebral point tenderness. No Meningismus. Chest/axilla: Normal chest wall appearance and motion. Nontender with no deformity. No lesions are appreciated. Cardiovascular: Regular rate and rhythm with a normal S1 and S2. No gallops, murmurs, or rubs. Normal PMI, no JVD. No pulse deficits. Respiratory: Lungs have equal breath sounds bilaterally, clear to auscultation and percussion. No rales, rhonchi or wheezes noted. No increased work of breathing, no retractions or nasal flaring. Skin: Warm, dry with normal turgor. Normal color with no rashes, no lesions, and no evidence of cellulitis. MS/ Extremity: Pulses equal, no cyanosis. Neurovascular intact. Full, normal range of motion. Neuro: Awake and alert, GCS 15, oriented to person, place, time, and situation. Cranial nerves II-XII grossly intact. Motor strength 5/5 in all extremities. Sensory grossly intact. Cerebellar exam normal. Normal gait. Psych: Awake, alert, with orientation to person, place and time. Behavior, mood, and affect are within normal limits. 19:46 Abdomen/GI: Minimal tenderness diffusely without rebound, guarding, abdominal distention. 20:18 ECG was reviewed by the Attending Physician. rt Vital Signs: 19:21 BP 177 / 84; Pulse 88; Resp 18; Temp 98.4; Pulse Ox 100% on R/A; Weight 56.7 kg; Height em6 5 ft. 4 in. (162.56 cm); Pain 4/10; 20:00 BP 176 / 74; Pulse 92; Resp 20; Pulse Ox 100% ; kb3 20:45 BP 171 / 85; Pulse 92; Resp 18; Pulse Ox 97% ; kb3 19:21 Body Mass Index 21.46 (56.70 kg, 162.56 cm) em6 MDM: 19:29 Patient medically screened. rt 23:26 Differential diagnosis: cholecystitis, pancreatitis, appendicitis, diverticulitis. Data rt reviewed: vital signs, lab test result(s), EKG, radiologic studies. ED course: Patient presents to the ED with diarrhea, generalized weakness. She is found have multiple electrolyte abnormalities, repleted in the ED. CT scan shows evidence of a colitis. This was treated with Zosyn. She was also found to have a UTI, covered with Zosyn. No clinical indicators for sepsis. She will be admitted for further care.. 10/09 19:45 Order name: CBC with Diff; Complete Time: 20:52 rt 10/09 19:45 Order name: CMP; Complete Time: 21:56 rt 10/09 19:45 Order name: Lipase; Complete Time: 21:56 rt 10/09 19:45 Order name: Urine Microscopic Only rt 10/09 19:45 Order name: Troponin HS; Complete Time: 21:56 rt 10/09 19:45 Order name: COVID-19/FLU A+B; Complete Time: 20:52 rt 10/09 19:45 Order name: Magnesium; Complete Time: 21:56 rt 10/09 19:45 Order name: UA; Complete Time: 21:56 rt 10/09 20:11 Order name: Urine Dipstick-Ancillary; Complete Time: 20:52 EDMS 10/09 21:29 Order name: Urine Culture EDMS 10/10 04:42 Order name: CBC with Automated Diff EDMS 10/10 05:05 Order name: Basic Metabolic Panel EDMS 10/10 05:05 Order name: Phosphorus EDMS 10/10 05:05 Order name: Creatine Phosphokinase EDMS 10/09 19:45 Order name: CT Abd/Pelvis - IV Contrast Only rt 10/09 19:45 Order name: Chest Single View XRAY; Complete Time: 21:56 rt 10/09 19:49 Order name: Abdomen ; Complete Time: 22:05 EDMS 10/10 05:05 Order name: CKMB Creatine Kinase MB EDMS 10/10 05:05 Order name: Troponin High Sensitivity EDMS 10/10 05:05 Order name: Lipid Profile EDMS 10/10 05:05 Order name: Magnesium EDMS 10/10 05:05 Order name: Thyroid Stimulating Hormone EDMS 10/10 06:06 Order name: Hemoglobin A1c EDMS 10/10 08:46 Order name: Glucose, Ancillary Testing EDMS 10/10 12:22 Order name: Glucose, Ancillary Testing EDMS 10/10 14:18 Order name: Potassium EDMS 10/10 16:14 Order name: Glucose, Ancillary Testing EDMS 10/10 18:11 Order name: Magnesium EDMS 10/09 19:45 Order name: IV Saline Lock; Complete Time: 20:11 rt 10/09 19:45 Order name: Labs collected and sent; Complete Time: 20:11 rt 10/09 19:45 Order name: EKG; Complete Time: 19:45 rt 10/09 19:45 Order name: EKG - Nurse/Tech; Complete Time: 20:11 rt EC:18 Rate is 93 beats/min. Rhythm is regular, Normal Sinus Rhythm with No ectopy. Left axis rt deviation noted. WA interval is normal. QT interval is normal. Interpreted by me. Administered Medications: 20:30 Drug: NS 0.9% 1000 ml Route: IV; Rate: 1 bolus; Site: left antecubital; kb3 20:30 Drug: Zofran (Ondansetron) 4 mg Route: IVP; Site: left antecubital; kb3 22:06 CANCELLED (Physician Discretion): Rocephin (cefTRIAXone) 2 grams IV at calculated rate rt once; Given slow IV push per pharmarcy instructions 22:32 Drug: Zosyn (piperacillin-tazobactam) 3.375 grams Route: IVPB; Infused Over: 60 mins; em6 Site: left antecubital; 23:45 Follow up: Response: No adverse reaction; IV Status: Completed infusion; IV Intake: em6 100ml 23:45 Drug: Magnesium Sulfate 2 grams Route: IVPB; Infused Over: 2 hrs; Site: left em6 antecubital; 23:45 Drug: Potassium Chloride 20 mEq Route: IV; Rate: calculated rate; Site: left em6 antecubital; Disposition Summary: 10/09/22 22:41 Hospitalization Ordered Hospitalization Status: Inpatient Admission rt Provider: Rebecca Telles rt Condition: Fair rt Problem: new rt Symptoms: are unchanged rt Bed/Room Type: Standard rt Location: Telemetry/MedSurg (Inpatient)(10/10/22 15:40) eb Room Assignment: [facility](10/10/22 15:40) eb Diagnosis - Left sided colitis rt - Hypokalemia rt - Hypomagnesemia rt Forms: - Medication Reconciliation Form rt - SBAR form rt Critical care time excluding procedures: 23:26 Critical care time: Bedside Care: 30 minutes, Consultation: 5 minutes. Total time: 35 rt minutes Signatures: Dispatcher [employer] EDMigdalia Morris, Skylar Yao RN, Erika RN RN em6 Nesha Velasquez RN RN Bora Varma MD MD rt Corrections: (The following items were deleted from the chart) 19:34 19:33 PMHx: Hypertension; em6 em6 19:34 19:33 PMHx: Diabetes - NIDDM; em6 em6 21:48 19:33 Allergies: No Known Allergies; em6 kb3 21:48 21:47 Allergies: NIDDM; kb3 kb3 21:48 21:47 Allergies: CAD; kb3 kb3 22:06 22:05 Rocephin (cefTRIAXone) 2 grams IV at calculated rate once; Given slow IV push per rt pharmarcy instructions ordered. rt 22:56 22:41 Telemetry/MedSurg (Inpatient) rt cg 22:56 22:41 rt cg 10/10 15:40 10/09 22:56 [facility] ER HOLD cg eb 10/10 15:40 10/09 22:56 ERHOLD- cg eb
--- NOTE | 2022-10-09 23:01 | P.HP ---
Certification for Inpatient Patient admitted to: Inpatient With expected LOS: >2 Midnights Patient will require the following post-hospital care: None Practitioner: I am a practitioner with admitting privileges, knowledge of patient current condition, hospital course, and medical plan of care. Services: Services provided to patient in accordance with Admission requirements found in Title 42 Section 412.3 of the Code of Federal Regulations Patient History Date of Service: 10/09/22 Primary Care Provider: Sixto Reason for admission: Colitis History of Present Illness: Patient is an 82 year old female with past medical history of CAD, non-insulin dependent type 2 diabetes, hypertension, CKD, and anemia who presented to the ED with complaints of nausea, vomiting, diarrhea, and abdominal pain x 4 days. She denies blood in stool or vomit. Denies any recent antibiotic use. No fever. Labs are significant for potassium 2.4, magnesium < 0.5, hgb 10.1, trop 159.6, urine positive for UTI. Patient denies any chest pain. CT abdomen pelvis showed "mild to moderate rectosigmoid colitis pattern" she was given IV fluids, 2 grams ma gnesium, 20 meq potassium, and zosyn in the ED. Patient is admitted for further management. Allergies No Known Allergies Allergy (Verified 02/17/19 01:26) Home medications list reviewed: Yes Home Medications: Aspirin [Aspirin EC 81 MG] 1 mg PO DAILY 02/17/19 Fenofibrate,Micronized [Fenofibrate] 200 mg PO DAILY 02/17/19 Metformin HCl 500 mg PO BID 02/17/19 PARoxetine HCl [Paroxetine HCl] 40 mg PO DAILY 02/17/19 Pravastatin Sodium 80 mg PO DAILY 02/17/19 carvediloL [Carvedilol] 12.5 mg PO BID 02/17/19 raNITIdine HCl [Zantac] 150 mg PO DAILY 02/17/19 traMADol HCL [Ultram*] 50 mg PO Q4HP PRN 02/17/19 Pantoprazole Sodium [Protonix] 40 mg PO DAILY #30 tablet. 02/20/19 - Past Medical/Surgical History Diabetic: Yes -: HTN -: Non-Insulin Dependent Type 2 Diabetes -: CAD -: eye surgery -: cholecystectomy -: partial hysterecomy Psychosocial/ Personal History: Patient lives at home alone. Her daughter lives across the street at helps care for her. - Family History Family History: Reviewed- Non-Contributory - Social History Smoking Status: Never smoker Alcohol use: No CD- Drugs: No Caffeine use: Yes Place of Residence: Home Review of Systems Gastrointestinal: Nausea, Vomiting, Abdominal Pain, Diarrhea Physical Examination - Physical Exam General: Alert, In no apparent distress HEENT: Atraumatic, PERRLA, EOMI, Sclerae nonicteric Neck: Supple, 2+ carotid pulse no bruit, No LAD, Without JVD or thyroid abnormality Respiratory: Clear to auscultation bilaterally, Normal air movement Cardiovascular: Regular rate/rhythm, Normal S1 S2 Gastrointestinal: Soft and benign, Non-distended, No tenderness Musculoskeletal: No tenderness Integumentary: No rashes Neurological: Normal speech, Normal strength at 5/5 x4 extr, Normal tone, Normal affect - Studies Laboratory Data (last 24 hrs) 10/09/22 20:00: Sodium 144, Potassium 2.4 L*, BUN 18, Creatinine 1.05, Glucose 117 H, Magnesium < 0.5 L*, Total Bilirubin 0.9, AST 34, ALT 21, Alkaline Phosphatase 38 L, Lipase 90 10/09/22 20:00: WBC 7.20, Hgb 10.1 L, Hct 29.8 L, Plt Count 223 Assessment and Plan - Problems (Diagnosis) (1) Colitis Current Visit: Yes Status: Acute (2) Hypokalemia Current Visit: Yes Status: Acute (3) Hypomagnesemia Current Visit: Yes Status: Acute (4) Elevated troponin Current Visit: Yes Status: Acute (5) GERD (gastroesophageal reflux disease) Current Visit: Yes Status: Chronic (6) DM2 (diabetes mellitus, type 2) Current Visit: Yes Status: Chronic Qualifiers: Diabetes mellitus residential insulin use: without residential use Diabetes mellitus complication status: with kidney complications Diabetes mellitus complication detail: with chronic kidney disease Chronic kidney disease stage: stage 3 (moderate) Chronic kidney disease stage 3 subtype: stage 3a (GFR 45- 59) Qualified Code(s): E11.22 - Type 2 diabetes mellitus with diabetic chronic kidney disease; N18.31 - Chronic kidney disease, stage 3a (7) HTN (hypertension) Current Visit: Yes Status: Chronic Qualifiers: Hypertension type: primary hypertension Qualified Code(s): I10 - Essential (primary) hypertension (8) Anemia Current Visit: Yes Status: Acute Qualifiers: Anemia type: due to chronic kidney disease Chronic kidney disease stage: stage 3 (moderate) Chronic kidney disease stage 3 subtype: stage 3a (GFR 45- 59) Qualified Code(s): N18.31 - Chronic kidney disease, stage 3a; D63.1 - Anemia in chronic kidney disease - Plan Continue zosyn for colitis. Supportive measures with IV fluids, zofran, immodium, morphine. Troponin HS is 125. Patient denies chest pain. No EKG changes. Trend serial cardiac enzymes. Monitor on telemetry. Continue to replete potassium and magnesium. No EKG changes noted. Clear liquid diet, advance as tolerated. Lipid panel, TSH, and A1c ordered. ACHS accu checks with mild sliding scale insulin. Renal function and hemoglobin appear at baseline per chart review. Reconcile and continue home medications. Full code. Discharge Plan: Home Plan to discharge in: Greater than 2 days - Advance Directives Does patient have a Living Will: Yes Does patient have a Durable POA for Healthcare: No - Code Status/Comfort Care Code Status Assessed: Yes (Full) Critical Care: No Time Spent Managing Pts Care (In Minutes): 50
[2022-10-10] MEDS ORDERED: MORPHINE 2 MG/ML SYR IV PRN (02:36)
[2022-10-10] MEDS ORDERED: ACETAMINOPHEN 500 MG TAB PO PRN (02:36)
[2022-10-10] MEDS ORDERED: LOPERAMIDE HCL 2 MG CAPSULE PO PRN (02:36)
[2022-10-10] MEDS ORDERED: ONDANSETRON 4 MG/2 ML VIAL IV PRN (02:36)
[2022-10-10] MEDS: PIPER TAZO 3.375 GM in NA CHLORIDE 0.9% 100 ML IV SCH ×4 (02:36→16:26)
[2022-10-10 02:43] VITALS: BMI 21.4
[2022-10-10] MEDS ORDERED: PIPERACIL/TAZO 3.375 GM VIAL IV ONE ×4 (03:33→16:24)
[2022-10-10] MEDS ORDERED: NA CHLORIDE 0.9% 100 ML IV ONE ×2 (03:33→06:20)
[2022-10-10 04:31] LABS: Absolute Lymphocytes (CBC) 1.1 K/uL (0.7-4.9); Hematocrit 28.2 % (36.0-45.0); Lymphocytes % 16.7 % (15.3-44.8); MCV 92.9 fL (80-100); RBC Red Blood Cell Count 3.03 M/uL (3.86-4.86)
[2022-10-10 05:03] LABS: CKMB Creatine Kinase MB 2.3 ng/mL (1.0-3.6); Phosphorus 1.7 mg/dL (2.5-4.9); Thyroid Stimulating Hormone 3.18 uIU/mL (0.360-3.740)
[2022-10-10 05:04] LABS: Magnesium 0.9 mg/dL (1.8-2.4); Potassium 2.6 mmol/L (3.5-5.1); Troponin High Sensitivity 180.8 pg/mL (<58.9)
[2022-10-10] MEDS: INSULIN -REGULAR HUMAN 50 UNIT/0.5 ML ML SQ SCH ×4 (07:30→21:00)
[2022-10-10] MEDS ORDERED: MAGNESIUM 50% 3 GM in NA CHLORIDE 0.9% 100 ML IV ONE (07:49)
[2022-10-10] MEDS: POTASS/SODIUM PHOSPHATE 1 PKT POWD.PACK PO SCH ×3 (08:00→10:00)
[2022-10-10] MEDS: KCL 20 MEQ/100 mL IVPB 20 MEQ/100 ML BAG IV SCH ×2 (08:00→10:00)
[2022-10-10] MEDS ORDERED: POTASS/SODIUM PHOSPHATE 1 PKT POWD.PACK ONE (08:16)
[2022-10-10] MEDS ORDERED: KCL 20 MEQ/100 mL IVPB 100 ML IV ONE (08:17)
[2022-10-10] MEDS ORDERED: NA CHLORIDE 0.9% 50 ML IV ONE (08:18)
[2022-10-10] MEDS ORDERED: POTASSIUM 25 MEQ EFFERV TAB PO ONE ×2 (12:15→16:00)
[2022-10-10] MEDS ORDERED: POTASSIUM 25 MEQ EFFERV TAB ONE ×3 (12:42→15:57)
--- NOTE | 2022-10-10 15:21 | P.PN ---
Subjective Date of Service: 10/10/22 Primary Care Provider: Sixto Chief Complaint: Colitis Patient denied any abdominal pain during my examination in the ED today. No diarrhea today She has tolerated clear liquid diet. 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 Diabetes mellitus complication status: with kidney complications Diabetes mellitus complication detail: with chronic kidney disease Chronic kidney disease stage: stage 3 (moderate) Chronic kidney disease stage 3 subtype: stage 3a (GFR 45- 59) Qualified Code(s): E11.22 - Type 2 diabetes mellitus with diabetic chronic kidney disease; N18.31 - Chronic kidney disease, stage 3a (3) HTN (hypertension) Current Visit: Yes Status: Chronic Qualifiers: Hypertension type: primary hypertension Qualified Code(s): I10 - Essential (primary) hypertension (4) Anemia Current Visit: Yes Status: Acute Qualifiers: Anemia type: due to chronic kidney disease Chronic kidney disease stage: stage 3 (moderate) Chronic kidney disease stage 3 subtype: stage 3a (GFR 45- 59) Qualified Code(s): N18.31 - Chronic kidney disease, stage 3a; D63.1 - Anemia in chronic kidney disease (5) Elevated troponin Current Visit: Yes Status: Acute (6) Acute cystitis without hematuria Current Visit: Yes Status: Acute - Plan Physical Exam General: Alert, In no apparent distress, frail-appearing. Neck: Supple, no elevated JVD. Respiratory: Clear to auscultation bilaterally, Normal air movement Cardiovascular: Regular rate/rhythm, Normal S1 S2 Gastrointestinal: Soft and benign, Non-distended, No tenderness Musculoskeletal: No tenderness Integumentary: No rashes Neurological: No focal motor deficit. Plan: Continue IV Zosyn. Follow urine culture. Nausea and vomiting resolved Advance diet as tolerated. Monitor CBC to follow hemoglobin. Increase activity as tolerated. PT consult.
[2022-10-10] MEDS ORDERED: Magnesium Sulfate 2gm IVPB 2 G/50 ML BAG IV ONE ×2 (18:24→19:00)
[2022-10-11] MEDS: PIPER TAZO 3.375 GM in NA CHLORIDE 0.9% 100 ML IV SCH ×2 (01:00→08:28)
[2022-10-11 06:02] LABS: Absolute Lymphocytes (CBC) 0.9 K/uL (0.7-4.9); Hematocrit 25.8 % (36.0-45.0); Lymphocytes % 18.8 % (15.3-44.8); MCV 93.3 fL (80-100); MPV 8.6 fL (7.6-11.3); RBC Red Blood Cell Count 2.77 M/uL (3.86-4.86)
[2022-10-11 06:36] LABS: Magnesium 1.9 mg/dL (1.8-2.4); Phosphorus 1.5 mg/dL (2.5-4.9); Potassium 3.5 mmol/L (3.5-5.1)
[2022-10-11] MEDS: INSULIN -REGULAR HUMAN 50 UNIT/0.5 ML ML SQ SCH ×2 (07:30→11:30)
[2022-10-11] MEDS: POTASS/SODIUM PHOSPHATE 1 PKT POWD.PACK PO SCH ×3 (08:29→10:50)
[2022-10-11] MEDS ORDERED: FENOFIBRATE 160 MG TAB PO SCH (09:00)
[2022-10-11] MEDS ORDERED: PANTOPRAZOLE 40MG TABLET PO SCH (09:00)
[2022-10-11] MEDS ORDERED: PARoxetine HCL 10 MG TAB PO SCH (09:00)
[2022-10-11] MEDS ORDERED: POTASSIUM CL SA 10 MEQ TAB PO ONE (09:00)
[2022-10-11] MEDS ORDERED: AMLODIPINE 5 MG TAB PO SCH (09:00)
[2022-10-11] MEDS ORDERED: HOME MED 1 EA UNK (Pravastatin Sodium [Pravastatin Sodium] 80 MG Tablet) PO SCH (09:00)
[2022-10-11] MEDS ORDERED: ASPIRIN EC 81 MG TAB PO SCH (09:00)
[2022-10-11] MEDS ORDERED: APIXABAN 5 MG TABLET PO SCH (09:00)
[2022-10-11] MEDS ORDERED: carvediloL 12.5 MG TAB PO SCH (09:00)
[2022-10-11] MEDS ORDERED: OXYBUTYNIN ER 5 MG TAB PO SCH (09:00)
[2022-10-11 10:16] VITALS: O2SAT 95
[2022-10-11 12:25] VITALS: BP 115/57; TEMP 97.8
--- NOTE | 2022-10-11 12:39 | P.DS ---
Admission Date: 10/09/22 Discharge Date: 10/11/22 Primary Care Provider: Sixto Disposition: ROUTINE DISCHARGE Discharge Condition: FAIR Reason for Admission: Colitis - Problems (1) Colitis Current Visit: Yes Status: Acute (2) DM2 (diabetes mellitus, type 2) Current Visit: Yes Status: Chronic Qualifiers: Diabetes mellitus fci insulin use: without fci use Diabetes mellitus complication status: with kidney complications Diabetes mellitus complication detail: with chronic kidney disease Chronic kidney disease stage: stage 3 (moderate) Chronic kidney disease stage 3 subtype: stage 3a (GFR 45- 59) Qualified Code(s): E11.22 - Type 2 diabetes mellitus with diabetic chronic kidney disease; N18.31 - Chronic kidney disease, stage 3a (3) HTN (hypertension) Current Visit: Yes Status: Chronic Qualifiers: Hypertension type: primary hypertension Qualified Code(s): I10 - Essential (primary) hypertension (4) Anemia Current Visit: Yes Status: Acute Qualifiers: Anemia type: due to chronic kidney disease Chronic kidney disease stage: stage 3 (moderate) Chronic kidney disease stage 3 subtype: stage 3a (GFR 45- 59) Qualified Code(s): N18.31 - Chronic kidney disease, stage 3a; D63.1 - Anemia in chronic kidney disease (5) Elevated troponin Current Visit: Yes Status: Acute (6) Acute cystitis without hematuria Current Visit: Yes Status: Acute Brief History of Present Illness: Patient is an 82 year old female with past medical history of CAD, non-insulin dependent type 2 diabetes, hypertension, CKD, and anemia who presented to the ED with complaints of nausea, vomiting, diarrhea, and abdominal pain x 4 days. She denied blood in stool or vomit. Denied any recent antibiotic use. No fever. Labs are significant for potassium 2.4, magnesium < 0.5, hgb 10.1, trop 159.6, urine positive for UTI. Patient denies any chest pain. CT abdomen pelvis showed "mild to moderate rectosigmoid colitis pattern" she was given IV fluids, 2 grams magnesium, 20 meq potassium, and zosyn in the ED. Patient was admitted for further management. Hospital Course: Patient admitted to the medical floor and treated with IV Zosyn for enterocolitis. Her urinalysis also suggested the presence of UTI. She had electrolyte abnormalities which were corrected. Patient's symptoms improved with treatment. Diarrhea resolved. Patient tolerated her diet without nausea or vomiting. She was seen by PT and was able to ambulate about 10 feet with a walker which is her. Patient deemed clinically stable for discharge. Per report, family declined home health. She is prescribed Cipro and Flagyl to continue treatment for the enterocolitis and UTI. Vital Signs/Physical Exam: Temp Pulse Resp BP Pulse Ox 97.8 F 86 16 115/57 L 95 10/11/22 12:00 10/11/22 12:00 10/11/22 12:00 10/11/22 12:00 10/11/22 12:00 General: Alert, In no apparent distress, Other (Frail-appearing) HEENT: Mucous membr. moist/pink Neck: JVD not distended Respiratory: Clear to auscultation bilaterally, Normal air movement Cardiovascular: Regular rate/rhythm, Normal S1 S2 Gastrointestinal: Soft and benign, Non-distended Musculoskeletal: No swelling Integumentary: No cyanosis Neurological: Normal strength at 5/5 x4 extr Laboratory Data at Discharge: WBC 4.80 K/uL (4.3-10.9) 10/11/22 05:42 Hgb 8.8 g/dL (12.0-15.0) L 10/11/22 05:42 Hct 25.8 % (36.0-45.0) L 10/11/22 05:42 Plt Count 196 K/uL (152-406) 10/11/22 05:42 Sodium 143 mmol/L (136-145) 10/11/22 05:42 Potassium 3.5 mmol/L (3.5-5.1) 10/11/22 05:42 BUN 13 mg/dL (7-18) 10/11/22 05:42 Creatinine 1.04 mg/dL (0.55-1.3) 10/11/22 05:42 Glucose 137 mg/dL (74-106) H 10/11/22 05:42 Phosphorus 1.5 mg/dL (2.5-4.9) L 10/11/22 05:42 Magnesium 1.9 mg/dL (1.8-2.4) 10/11/22 05:42 Total Bilirubin 0.9 mg/dL (0.2-1.0) 10/09/22 20:00 AST 34 U/L (15-37) 10/09/22 20:00 ALT 21 U/L (12-78) 10/09/22 20:00 Alkaline Phosphatase 38 U/L (45-117) L 10/09/22 20:00 Triglycerides 203 mg/dL (<150) H 10/10/22 03:56 Cholesterol 114 mg/dL (<200) 10/10/22 03:56 HDL Cholesterol 17 mg/dL (40-60) L 10/10/22 03:56 Cholesterol/HDL Ratio 6.71 10/10/22 03:56 Lipase 90 U/L (73-393) 10/09/22 20:00 Home Medications: Aspirin [Aspirin EC 81 MG] 81 mg PO DAILY 02/17/19 Fenofibrate,Micronized [Fenofibrate] 200 mg PO DAILY 02/17/19 Metformin HCl 500 mg PO BID 02/17/19 PARoxetine HCl [Paroxetine HCl] 40 mg PO DAILY 02/17/19 Pravastatin Sodium 80 mg PO DAILY 02/17/19 carvediloL [Carvedilol] 12.5 mg PO BID 02/17/19 Pantoprazole Sodium [Protonix] 40 mg PO DAILY #30 tablet. 02/20/19 Amlodipine [Norvasc*] 5 mg PO DAILY 10/11/22 Apixaban [Eliquis] 5 mg PO BID 10/11/22 Ciprofloxacin HCl [Cipro] 500 mg PO BID #6 tab 10/11/22 Oxybutynin Chloride [Oxybutynin Chloride ER] 5 mg PO DAILY 10/11/22 metroNIDAZOLE [Flagyl] 500 mg PO Q8H #9 tab 10/11/22 New Medications: Ciprofloxacin HCl [Cipro] 500 mg PO BID #6 tab metroNIDAZOLE [Flagyl] 500 mg PO Q8H #9 tab Diet: Regular Activity: Fall precautions Followup: NONE,NONE [Primary Care Provider] - Time spent managing pt's care (in minutes): 34
[2022-10-11] MEDS ORDERED: ATORVASTATIN 10 MG TAB PO SCH (21:00)
--- NOTE | 2022-10-12 19:20 | EKG ---
Test Date: 2022-10-09 Test Time: 19:58:38 Superintendent Power: ISAC MEASUREMENT RESULTS: Intervals: Rate: 93 ID: [id number] QRSD: 152 QT: 400 QTc: 497 [place]: P: 47 ID: [id number] QRS: -41 T: 22 INTERPRETIVE STATEMENTS: Normal sinus rhythm Left axis deviation Left bundle branch block Abnormal ECG Compared to ECG 02/18/2019 11:50:44 Left-axis deviation now present Left bundle-branch block now present Electronically Signed On 10-12-22 19:11:16 [employer]IOR [employer]OWER [employer]PER[employer] by Liborio Colby
== END 2022-10-11 13:58 | disposition home or self-care (01) | DRG 386 ==
LOC: ER 19:14 → ERHOLD 23:17 → 4TH 10-10 19:21
PROVIDERS: ADMIT Internal Medicine; ATTEND Internal Medicine
DX: K51.50 Left sided colitis without complications (principal); N30.00 Acute cystitis without hematuria; I12.9 Hypertensive chronic kidney disease with stage 1 through stage 4 chronic kidney disease, or unspecified chronic kidney disease; N18.31 Chronic kidney disease, stage 3a; E11.22 Type 2 diabetes mellitus with diabetic chronic kidney disease; D63.1 Anemia in chronic kidney disease; E87.6 Hypokalemia; E83.42 Hypomagnesemia; K21.9 Gastro-esophageal reflux disease without esophagitis; I25.10 Atherosclerotic heart disease of native coronary artery without angina pectoris; D72.829 Elevated white blood cell count, unspecified; Z60.2 Problems related to living alone; Z79.84 Long term (current) use of oral hypoglycemic drugs; Z79.01 Long term (current) use of anticoagulants; Z79.82 Long term (current) use of aspirin; Z79.899 Other long term (current) drug therapy; Z90.711 Acquired absence of uterus with remaining cervical stump; Z20.822 Contact with and (suspected) exposure to COVID-19
CPT/HCPCS: 0240U; 36415; 71045; 74177; 80048; 80053; 80061; 81001; 81003; 81015; 82550; 82553; 82947; 83036; 83690; 83735; 84100; 84132; 84443; 84484; 85025; 87077; 87086; 87088; 87186; 93005; 96365; 96375; 97116; 97161; 97530; 99284; J2405; J2543; J3475; J3480; J7030; Q9967

== ENCOUNTER 2022-11-12 09:18 | Inpatient (IN) | payer OTHER ==
--- OUTSIDE RECORDS SUMMARY | 2022-11-12 09:31 | XMS REPORT | Continuity of Care Document ---
:1940 Author Organization [facility] t Address [address] [place] [address] [address]. [address] [place] [address] Care Team Providers Name Role Phone Roger Serrato MD Primary Care Physician VINCE LOPEZ Attending Clinician Unavailable ROGER SERRATO Attending Clinician Unavailable AUGUST FOX Attending Clinician Unavailable Roger Serrato MD Attending Clinician Man Corado RN Attending Clinician Unavailable CHRIS TILLMAN Attending Clinician Unavailable Chris Tillman MD Attending Clinician Tish Bennett DO Attending Clinician Lab, Ang - Db Attending Clinician Unavailable EFFIE VERAS Attending Clinician Unavailable Queenie Mcdonald Attending Clinician Vince Lopez MD Attending Clinician Abdiel Martínez CRNA Attending Clinician Michael Lema MD Attending Clinician [phone] Pob, Britney Lab Main Attending Clinician Unavailable Doctor Unassigned, [place] Attending Clinician Unavailable QUEENIE ARREDONDO Attending Clinician Unavailable Vaccine, [facility] Family [facility] Attending Clinician Unavailable Only, Adc Test Attending Clinician Unavailable CHRISTINE CONNER Attending Clinician Unavailable RICKY PADILLA Attending Clinician Unavailable NICOLETTE HOBBS Attending Clinician Unavailable VINCE LOPEZ Admitting Clinician Unavailable TISH BENNETT Admitting Clinician Unavailable Tish Bennett DO Admitting Clinician Vince Lopez MD Admitting Clinician NICOLETTE HOBBS Admitting Clinician Unavailable Payers Payer Name Policy Type Policy Number Effective Date Expiration Date Marlene joy MEDICARE PART A [id number] 2004 \\T\\ B 00:00:00 Problems Condition Condition Condition Status Onset Resolution Last Treating Co mments Source Name Details Category Date Date Treatment Clinician Date Colitis Colitis Disease Active 2021-11 Univers due to due to 208 ity of Clostrid[place] Medical difficile difficile Bran ch Essential Essential Disease Active Uni vers hypertensi hypertensi 08-18 it y of on on 00:00: [place] 00 Medical Branch Hyperlipid Hyperlipid Disease Active U nivers emia, emia, 08-18 ity of unspecifie unspecifie 00:[place] Medical hyperlipid hyperlipid Br anch emia type emia type Type 2 Type 2 Disease Active Univers diabetes diabetes 08-18 ity of mellitus mellitus 00:00: [place] without without 00 Medical complicati complicati Br anch on, on, without without long-term long-term current current use of use of insulin insulin Trigeminal Trigeminal Disease Active U nivers neuralgia neuralgia 08-18 ity of of right of right 00:00: [place] side of side of 00 Medical face face Branch Allergies, Adverse Reactions, Alerts Allergy Allergy Status Severity Reaction(s) Onset Inactive Treating Comm ents Source Name Type Date Date Clinician NO KNOWN Drug Active Univers ALLERGIE Class ity of S [facility] Social History Social Habit Start Date Stop Date Quantity Comments Source History of Passive smoker University of tobacco use [facility] History SDOH Food 2022-11-05 2022-11-05 1 Univers ity of Worry 00:00:00 00:00:00 [place] [facility] History SDOH Food 2022-11-05 2022-11-05 1 Univers ity of Scarcity 00:00:00 00:00:00 [facility] Branch History SDOH 2022-11-05 2022-11-05 2 University o f Transport Med 00:00:00 00:00:00 [place] [facility] History SDOH 2022-11-05 2022-11-05 2 University o f Transport Non-Med 00:00:00 00:00:00 [facility] edical Branch Alcohol intake 2022-11-01 2022-11-01 Current drinker Unive rsity of 00:00:00 00:00:00 of alcohol [facility] (finding) [place] Exposure to 2022-10-21 2022-10-31 Not sure [facility]-CoV-2 00:00:00 09:56:00 [facility] (event) [place] Tobacco use and 2022-10-31 2022-10-31 Smokeless tobacco Un iversity of exposure 00:00:00 00:00:00 non-user [facility] Sex Ass[birth year] At [birth year] Universit y of 00:00:00 00:00:00 [facility] Smoking Status Start Date Stop Date Source Never smoked tobacco [facility] Medications Ordered Filled Start Stop Current Ordering Indication Dosage Frequency Signature Comments Components Source Medication Medication Date Date Medication? Clinician (SIG) Name Name HYDROcodone 2021-11 Yes 2745 1{tbl} Take 1 Un kat -acetaminop 2-19 tablet by ity of hen 5-325 00:00: mouth 2 [place] mg tablet 00 (two) Medical times [place] daily as needed for Pain (scale 4-6). Indication s: chronic pain hydrocortis 2021-11 Yes 25mg 25 mg, Univ ers one 11 Rectal, ity of (ANUSOL-HC) 02:00: BID, First [place] suppository 00 dose on Medic al 25 mg Sat [place] 11/02/22 at 2000, Until Discontinu ed, Routine ferrous 2021-11- Yes [id number] 325mg Take 1 U nivers sulfate 325 01-04 tablet by it y of mg (65 mg 00:00: 05:59 mouth in [place] as iron) 00 :00 the Medical tablet morning Branch for 30 days. ferrous 2021-11- Yes [id number] 325mg Take 1 U nivers sulfate 325 01-04 tablet by it y of mg (65 mg 00:00: 05:59 mouth in [place] iron) 00 :00 the Medical tablet morning Branch for 30 days. ferrous 2021-11- Yes [id number] 325mg Take 1 U nivers sulfate 325 01-04 tablet by it y of mg (65 mg 00:00: 05:59 mouth in [place] iron) 00 :00 the Medical tablet morning Branch for 30 days. ferrous 2021-11- Yes [id number] 325mg Take 1 U nivers sulfate 325 01-04 tablet by it y of mg (65 mg 00:00: 05:59 mouth in [place] iron) 00 :00 the Medical tablet morning Branch for 30 days. ferrous 2021-11- Yes [id number] 325mg Take 1 U nivers sulfate 325 01-04 tablet by it y of mg (65 mg 00:00: 05:59 mouth in [place] iron) 00 :00 the Medical tablet morning Branch for 30 days. ferrous 2021-11- Yes [id number] 325mg Take 1 U nivers sulfate 325 01-04 tablet by it y of mg (65 mg 00:00: 05:59 mouth in [place] iron) 00 :00 the Medical tablet morning Branch for 30 days. ferrous 2021-11- Yes [id number] 325mg Take 1 U nivers sulfate 325 01-04 tablet by it y of mg (65 mg 00:00: 05:59 mouth in [place] iron) 00 :00 the Medical tablet morning Branch for 30 days. ferrous 2021-11- Yes [id number] 325mg Take 1 U nivers sulfate 325 01-04 tablet by it y of mg (65 mg 00:00: 05:59 mouth in [place] iron) 00 :00 the Medical tablet morning Branch for 30 days. acidophilus 2021-11- Yes [id number] 1g Take 1 Univers 100 million 01-04 tablet by it y of cell tablet 00:00: 05:59 mouth in [place] 00 :00 the Medical morning Branch and 1 tablet in the evening. Do all this for 10 days. acidophilus 2021-11- Yes [id number] 1g Take 1 Univers 100 million 01-04 tablet by it y of cell tablet 00:00: 05:59 mouth in [place] 00 :00 the Medical morning Branch and 1 tablet in the evening. Do all this for 10 days. acidophilus 2021-11- Yes [id number] 1g Take 1 Univers 100 million 2-11 12-22 tablet by it y of cell tablet 00:00: 05:59 mouth in [place] 00 :00 the Medical morning Branch and 1 tablet in the evening. Do all this for 10 days. acidophilus 2021-11- Yes [id number] 1g Take 1 Univers 100 million 2-11 12-22 tablet by it y of cell tablet 00:00: 05:59 mouth in [place] 00 :00 the Medical morning Branch and 1 tablet in the evening. Do all this for 10 days. acidophilus 2021-11- Yes [id number] 1g Take 1 Univers 100 million 2-11 12-22 tablet by it y of cell tablet 00:00: 05:59 mouth in [place] 00 :00 the Medical morning Branch and 1 tablet in the evening. Do all this for 10 days. acidophilus 2021-11- Yes [id number] 1g Take 1 Univers 100 million 2-11 12-22 tablet by it y of cell tablet 00:00: 05:59 mouth in [place] 00 :00 the Medical morning Branch and 1 tablet in the evening. Do all this for 10 days. acidophilus 2021-11- Yes [id number] 1g Take 1 Univers 100 million 2-11 12-22 tablet by it y of cell tablet 00:00: 05:59 mouth in [place] 00 :00 the Medical morning Branch and 1 tablet in the evening. Do all this for 10 days. acidophilus 2021-11- Yes [id number] 1g Take 1 Univers 100 million 2-11 12-22 tablet by it y of cell tablet 00:00: 05:59 mouth in [place] 00 :00 the Medical morning Branch and 1 tablet in the evening. Do all this for 10 days. vancomycin 2021-11- Yes [id number] 125mg Take 1 Univers 125 mg 2-11 12-19 capsule by ity of capsule 00:00: 05:59 mouth 4 [place] 00 :00 (four) Medical times [place] daily for 7 days. vancomycin 2021-11- Yes [id number] 125mg Take 1 Univers 125 mg 2-11 12-19 capsule by ity of capsule 00:00: 05:59 mouth 4 [place] 00 :00 (four) Medical times Branch daily for 7 days. vancomycin 2021-11- Yes [id number] 125mg Take 1 Univers 125 mg 01-04 capsule by ity of capsule 00:00: 05:59 mouth 4 [place] 00 :00 (four) Medical times [place] daily for 7 days. PARoxetine 2021-11 Yes 40mg 40 mg, Unive rs (PAXIL) 01-02 Oral, ity of tablet 40 15:00: DAILY, [place] mg 00 First dose Medical on Fri Branch 11/01/22 at 0900, Until Discontinu ed, Routine pantoprazol 2021-11 Yes 40mg 40 mg, Univ ers e 01-02 Oral, QAM, ity of (PROTONIX) 15:00: First dose [place] EC tablet 00 on Fri Medical 40 mg 11/01/22 at Branch 0900, Until Discontinu ed, Routine amLODIPine 2021-11 Yes 5mg 5 mg, Univer s (NORVASC) 01-02 Oral, ity of tablet 5 mg 15:00: DAILY, [place] 00 First dose Medical on Fri Branch 11/01/22 at 0900, Until Discontinu ed, Routine Sliding 2021-11 Yes Subcutaneo Univ ers Scale - us, TID ity of Insulin - 14:00: MEALS, [place] Lispro 00 First dose Medical (HumaLOG) + on Fri Branch Fsbg 11/01/22 at Testing 0800, Until Discontinu ed, Routine potassium 2021-11- No 10meq 10 mEq, IV Univers chloride in 01-02 Piggyback, i ty of water 10 04:00: 08:17 Q1H, 4 [place] mEq/100 mL 00 :00 doses, Medical RTU 10 mEq First dose Bra nch on [place] 10/31/22 at 2200, Last dose on Fri11/01/22 at 0100, Administer over 60 Minutes, 100 mL magnesium 2021-11- No 2g 2 g, IV Univ ers sulfate in 01-02 Piggyback, it y of water 2 04:00: 06:05 Administer [place] gram/50 mL 00 :00 over 60 Medica l (4 %) Minutes, Branch infusion 2 Q1H, 2 g doses, First dose on [facility] 10/31/22 at 2200, Last dose on [facility] 10/31/22 at 2300, Routine KCL 2021-11- No 40meq 40 mEq, Univers (KLOR-CON 01-02 Oral, ity of M20) tablet 03:30: 04:19 ONCE, 1 [place] 40 mEq 00 :00 dose, On Medical [facility] 10/31/22 at 2130, Routine vancomycin 2021-11- Yes 125mg 125 mg, Un kat (FIRVANQ) 01-02 Oral, QID, ity of 50 mg/mL 02:30: 01:59 40 doses, [place] oral 00 :00 First dose Medical solution on [facility] 125 mg 10/31/22 at 2030, Last dose on [place] 11/10/22 at 1600, Routine
Reason for Anti-Infec tive: Documented Infection< br>Documen seth Infection Site: Abdominal< br>Duratio n of Therapy: 10 days carvediloL 2021-11 Yes 12.5mg 12.5 mg, U nivers (COREG) 01-02 Oral, BID, ity of tablet 12.5 02:00: First dose [place] mg 00 on [facility] 10/31/22 at [place] 1999, Until Discontinu ed, Routine apixaban 2021-11 Yes 1358 5mg 5 mg, Univers (ELIQUIS) 01-02 Oral, BID, ity of tablet 5 mg 02:00: First dose [place] 00 on [facility] 10/31/22 at [place] 1999, Until Discontinu ed, Routine
Indicatio ns: DVT/PE glucagon 2021-11 Yes 1mg 1 mg, Univers (GLUCAGEN 01-01 Intramuscu ity of DIAGNOSTIC 23:27: [place], PRN, [place] KIT) 12 Starting Medical injection 1 on [facility] 10/31/22 at 1727, Until Discontinu ed, COURTNEY, Blood Glucose < or = 70 mg/dL and patient is unable to swallow or has mental changes. dextrose 50 2021-11 Yes 25mL 25 mL, Univ ers % in water 208 Slow IV ity of (D50W) 23:27: Push, PRN, [place] injection 12 Starting Medica l 25 mL on [facility] Branch 10/31/22 at 1727, Until Discontinu ed, COURTNEY, Blood Glucose < or = 70 mg/dL and patient is unable to swallow or has mental status changes. HYDROcodone 2021-11 Yes 1{tbl} 1 tablet, Univers -acetaminop 2-08 Oral, ity of hen (NORCO) 23:27: Q6HPRN, [place] 10-325 mg 04 Starting Medica l tablet 1 on [place] Branch tablet 10/31/22 at 1727, Until Discontinu ed, Routine, Pain (scale 7-10) acetaminoph 2021-11 Yes 650mg 650 mg, Un kat en 2-08 Oral, ity of (TYLENOL) 23:26: Q6HPRN, [place] tablet 650 58 Starting Medic al mg on [place] Branch 10/31/22 at 1726, Until Discontinu ed, Routine, Pain (scale 1-3) NaCl 0.9% 2021-11- No IV Univers (NS) 1000 2- 12-09 Infusion, ity of mL + KCL 20 18:15: 03:16 at 150 [place] mEq 00 :55 mL/hr, Medical CONTINUOUS Branch , Starting on [place] 10/31/22 at 1215, Until [place] 10/31/22 at 2116, CUORTNEY apixaban 2021-11 Yes 1358 TAKE 1 Univers (ELIQUIS) 5 2-08 TABLET BY ity of mg tablet 00:00: MOUTH [place] 00 TWICE A Medical DAY TO Branch 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 Indication s: atrial fibrillati on apixaban 2021-11 Yes 1358 TAKE 1 Univers (ELIQUIS) 5 2-08 TABLET BY ity of mg tablet 00:00: MOUTH [place] 00 TWICE A Medical DAY TO Branch 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 Indication s: atrial fibrillati on apixaban 2021-11 Yes 1358 TAKE 1 Univers (ELIQUIS) 5 2-08 TABLET BY ity of mg tablet 00:00: MOUTH [place] 00 TWICE A Medical DAY TO Branch 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 Indication s: atrial fibrillati on apixaban 2021-11 Yes 1358 TAKE 1 Univers (ELIQUIS) 5 2-08 TABLET BY ity of mg tablet 00:00: MOUTH [place] 00 TWICE A Medical DAY TO Branch 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 Indication s: atrial fibrillati on apixaban 2021-11 Yes 1358 TAKE 1 Univers (ELIQUIS) 5 2-08 TABLET BY ity of mg tablet 00:00: MOUTH [place] 00 TWICE A Medical DAY TO Branch 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 Indication s: atrial fibrillati on apixaban 2021-11 Yes 1358 TAKE 1 Univers (ELIQUIS) 5 2-08 TABLET BY ity of mg tablet 00:00: MOUTH [place] 00 TWICE A Medical DAY TO Branch 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 Indication s: atrial fibrillati on apixaban 2021-11 Yes 1358 TAKE 1 Univers (ELIQUIS) 5 2-08 TABLET BY ity of mg tablet 00:00: MOUTH [place] 00 TWICE A Medical DAY TO Branch 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 Indication s: atrial fibrillati on apixaban 2021-11 Yes 1358 TAKE 1 Univers (ELIQUIS) 5 2-08 TABLET BY ity of mg tablet 00:00: MOUTH [place] 00 TWICE A Medical DAY TO Branch 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 Indication s: atrial fibrillati on apixaban 2021-11 Yes 1358 TAKE 1 Univers (ELIQUIS) 5 2-08 TABLET BY ity of mg tablet 00:00: MOUTH [place] 00 TWICE A Medical DAY TO Branch 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 metroNIDAZO 2021-11 Yes [id number] 500mg Take 1 Univers LE 500 mg 2-07 tablet by ity o f tablet 00:00: mouth [place] 00 every 8 Medical (eight) Branch hours. ciprofloxac 2021-11 Yes [id number] 500mg Take 1 Univers in HCl 500 2-07 tablet by ity of mg tablet 00:00: mouth [place] 00 the Medical morning Branch and 1 tablet in the evening. metroNIDAZO 2021-11 Yes [id number] 500mg Take 1 Univers LE 500 mg 2-07 tablet by ity o f tablet 00:00: mouth [place] 00 every 8 Medical (eight) Branch hours. ciprofloxac 2021-11 Yes [id number] 500mg Take 1 Univers in HCl 500 2-07 tablet by ity of mg tablet 00:00: mouth [place] 00 the Medical morning Branch and 1 tablet in the evening. metroNIDAZO 2021-11 Yes [id number] 500mg Take 1 Univers LE 500 mg 2-07 tablet by ity o f tablet 00:00: mouth [place] 00 every 8 Medical (eight) Branch hours. ciprofloxac 2021-11 Yes [id number] 500mg Take 1 Univers in HCl 500 2-07 tablet by ity of mg tablet 00:00: mouth [place] 00 the Medical morning Branch and 1 tablet in the evening. metroNIDAZO 2021-11 Yes [id number] 500mg Take 1 Univers LE 500 mg 2-07 tablet by ity o f tablet 00:00: mouth [place] 00 every 8 Medical (eight) Branch hours. ciprofloxac 2021-11 Yes [id number] 500mg Take 1 Univers in HCl 500 2-07 tablet by ity of mg tablet 00:00: mouth [place] 00 the Medical morning Branch and 1 tablet in the evening. metroNIDAZO 2021-11 Yes [id number] 500mg Take 1 Univers LE 500 mg 2-07 tablet by ity o f tablet 00:00: mouth [place] 00 every 8 Medical (eight) Branch hours. ciprofloxac 2021-11- No [id number] 500mg Take 1 Univers in HCl 500 2-07 12-11 tablet by ity of mg tablet 00:00: 00:00 mouth in [place] 00 :00 the Medical morning Branch and 1 tablet in the evening. metroNIDAZO 2021-11- No [id number] 500mg Take 1 Univers LE 500 mg 2-07 12-11 tablet by ity of tablet 00:00: 00:00 mouth [place] 00 :00 every 8 Medical (eight) Branch hours. HYDROcodone 2021-11 Yes [id number] 1{tbl} Take 1 Un kat -acetaminop 1-22 tablet by ity of hen 5-325 00:00: mouth 2 [place] mg tablet 00 (two) Medical times Branch daily as needed for Pain (scale 4-6). Indication s: chronic pain HYDROcodone 2021-11 Yes 2745 1{tbl} Take 1 Un kat -acetaminop 1-22 tablet by ity of hen 5-325 00:00: mouth 2 [place] mg tablet 00 (two) Medical times Branch daily as needed for Pain (scale 4-6). Indication s: chronic pain HYDROcodone 2021-11 Yes 2745 1{tbl} Take 1 Un kat -acetaminop 1-22 tablet by ity of hen 5-325 00:00: mouth 2 [place] mg tablet 00 (two) Medical times Branch daily as needed for Pain (scale 4-6). Indication s: chronic pain HYDROcodone 2021-11 Yes 2745 1{tbl} Take 1 Un kat -acetaminop 1-22 tablet by ity of hen 5-325 00:00: mouth 2 [place] mg tablet 00 (two) Medical times Branch daily as needed for Pain (scale 4-6). Indication s: chronic pain HYDROcodone 2021-11 Yes 2745 1{tbl} Take 1 Un kat -acetaminop 1-22 tablet by ity of hen 5-325 00:00: mouth 2 [place] mg tablet 00 (two) Medical times Branch daily as needed for Pain (scale 4-6). Indication s: chronic pain HYDROcodone 2021-11 Yes 2745 1{tbl} Take 1 Un kat -acetaminop 1-22 tablet by ity of hen 5-325 00:00: mouth 2 [place] mg tablet 00 (two) Medical times Branch daily as needed for Pain (scale 4-6). Indication s: chronic pain HYDROcodone 2021-11 Yes 2745 1{tbl} Take 1 Un kat -acetaminop 1-22 tablet by ity of hen 5-325 00:00: mouth 2 [place] mg tablet 00 (two) Medical times Branch daily as needed for Pain (scale 4-6). Indication s: chronic pain HYDROcodone 2021-11 Yes 2745 1{tbl} Take 1 Un kat -acetaminop 1-22 tablet by ity of hen 5-325 00:00: mouth 2 [place] mg tablet 00 (two) Medical times Branch daily as needed for Pain (scale 4-6). Indication s: chronic pain HYDROcodone 2021-11 Yes 2745 1{tbl} Take 1 Un kat -acetaminop 1-22 tablet by ity of hen 5-325 00:00: mouth 2 [place] mg tablet 00 (two) Medical times Branch daily as needed for Pain (scale 4-6). Indication s: chronic pain HYDROcodone 2021-11 Yes 2745 1{tbl} Take 1 Un kat -acetaminop 1-22 tablet by ity of hen 5-325 00:00: mouth 2 [place] mg tablet 00 (two) Medical times Branch daily as needed for Pain (scale 4-6). Indication s: chronic pain HYDROcodone 2021-11 No 2745 1{tbl} Take 1 U nivers -acetaminop 1-22 12-19 tablet by it y of hen 5-325 00:00: 00:00 mouth 2 [place] mg tablet 00 :00 (two) Medical times Branch daily as needed for Pain (scale 4-6). Indication s: chronic pain HYDROcodone 2021-11 No 2745 1{tbl} Take 1 U nivers -acetaminop 1-22 12-19 tablet by it y of hen 5-325 00:00: 00:00 mouth 2 [place] mg tablet 00 :00 (two) Medical times Branch daily as needed for Pain (scale 4-6). Indication s: chronic pain HYDROcodone 2021-11 No 2745 1{tbl} Take 1 U nivers -acetaminop 1-22 12-19 tablet by it y of hen 5-325 00:00: 00:00 mouth 2 [place] mg tablet 00 :00 (two) Medical times Branch daily as needed for Pain (scale 4-6). Indication s: chronic pain HYDROcodone 2021-11 No 2745 1{tbl} Take 1 U nivers -acetaminop 1-22 12-19 tablet by it y of hen 5-325 00:00: 00:00 mouth 2 [place] mg tablet 00 :00 (two) Medical times Branch daily as needed for Pain (scale 4-6). Indication s: chronic pain METFORMIN 2021-11 Yes [id number] TAKE 1 U nivers 500 mg 1-18 TABLET BY ity of tablet 00:00: MOUTH [place] 00 TWICE A Medical DAY WITH Branch MEALS PRAVASTATIN 2021-11 Yes [id number] TAKE 1 Univers 80 mg 1-18 TABLET BY ity of tablet 00:00: MOUTH [place] 00 EVERYDAY Medical AT BEDTIME Branch CARVEDILOL 2021-11 Yes [id number] TAKE 1 U nivers 12.5 mg 1-18 TABLET BY ity of tablet 00:00: MOUTH [place] 00 TWICE A Medical DAY Branch FENOFIBRATE 2021-11 Yes [id number] 200mg TAKE 1 Univers MICRONIZED 1-18 CAPSULE BY ity of 200 mg 00:00: MOUTH [place] capsule 00 DAILY WITH Medica l BREAKFAST. Branch PAROXETINE 2021-11 Yes [id number] TAKE 1 U nivers 40 mg 1-18 TABLET BY ity of tablet 00:00: MOUTH [place] 00 EVERY DAY Medical Branch METFORMIN 2021-11 Yes [id number] TAKE 1 U nivers 500 mg 1-18 TABLET BY ity of tablet 00:00: MOUTH [place] 00 TWICE A Medical DAY WITH Branch MEALS PRAVASTATIN 2021-11 Yes [id number] TAKE 1 Univers 80 mg 1-18 TABLET BY ity of tablet 00:00: MOUTH [place] 00 EVERYDAY Medical AT BEDTIME Branch CARVEDILOL 2021-11 Yes [id number] TAKE 1 U nivers 12.5 mg 1-18 TABLET BY ity of tablet 00:00: MOUTH [place] 00 TWICE A Medical DAY Branch FENOFIBRATE 2021-11 Yes [id number] 200mg TAKE 1 Univers MICRONIZED 1-18 CAPSULE BY ity of 200 mg 00:00: MOUTH [place] capsule 00 DAILY WITH Medica l BREAKFAST. Branch PAROXETINE 2021-11 Yes [id number] TAKE 1 U nivers 40 mg 1-18 TABLET BY ity of tablet 00:00: MOUTH [place] 00 EVERY DAY Medical Branch METFORMIN 2021-11 Yes [id number] TAKE 1 U nivers 500 mg 1-18 TABLET BY ity of tablet 00:00: MOUTH [place] 00 TWICE A Medical DAY WITH Branch MEALS PRAVASTATIN 2021-11 Yes [id number] TAKE 1 Univers 80 mg 1-18 TABLET BY ity of tablet 00:00: MOUTH [place] 00 EVERYDAY Medical AT BEDTIME Branch CARVEDILOL 2021-11 Yes [id number] TAKE 1 U nivers 12.5 mg 1-18 TABLET BY ity of tablet 00:00: MOUTH [place] 00 TWICE A Medical DAY Branch FENOFIBRATE 2021-11 Yes [id number] 200mg TAKE 1 Univers MICRONIZED 1-18 CAPSULE BY ity of 200 mg 00:00: MOUTH [place] capsule 00 DAILY WITH Medica l BREAKFAST. Branch PAROXETINE 2021-11 Yes [id number] TAKE 1 U nivers 40 mg 1-18 TABLET BY ity of tablet 00:00: MOUTH [place] 00 EVERY DAY Medical Branch METFORMIN 2021-11 Yes [id number] TAKE 1 U nivers 500 mg 1-18 TABLET BY ity of tablet 00:00: MOUTH [place] 00 TWICE A Medical DAY WITH Branch MEALS PRAVASTATIN 2021-11 Yes [id number] TAKE 1 Univers 80 mg 1-18 TABLET BY ity of tablet 00:00: MOUTH [place] 00 EVERYDAY Medical AT BEDTIME Branch CARVEDILOL 2021-11 Yes [id number] TAKE 1 U nivers 12.5 mg 1-18 TABLET BY ity of tablet 00:00: MOUTH [place] 00 TWICE A Medical DAY Branch FENOFIBRATE 2021-11 Yes [id number] 200mg TAKE 1 Univers MICRONIZED 1-18 CAPSULE BY ity of 200 mg 00:00: MOUTH [place] capsule 00 DAILY WITH Medica l BREAKFAST. Branch PAROXETINE 2021-11 Yes [id number] TAKE 1 U nivers 40 mg 1-18 TABLET BY ity of tablet 00:00: MOUTH [place] 00 EVERY DAY Medical Branch METFORMIN 2021-11 Yes [id number] TAKE 1 U nivers 500 mg 1-18 TABLET BY ity of tablet 00:00: MOUTH [place] 00 TWICE A Medical DAY WITH Branch MEALS PRAVASTATIN 2021-11 Yes [id number] TAKE 1 Univers 80 mg 1-18 TABLET BY ity of tablet 00:00: MOUTH [place] 00 EVERYDAY Medical AT BEDTIME Branch CARVEDILOL 2021-11 Yes [id number] TAKE 1 U nivers 12.5 mg 1-18 TABLET BY ity of tablet 00:00: MOUTH [place] 00 TWICE A Medical DAY Branch FENOFIBRATE 2021-11 Yes [id number] 200mg TAKE 1 Univers MICRONIZED 1-18 CAPSULE BY ity of 200 mg 00:00: MOUTH [place] capsule 00 DAILY WITH Medica l BREAKFAST. Branch PAROXETINE 2021-11 Yes [id number] TAKE 1 U nivers 40 mg 1-18 TABLET BY ity of tablet 00:00: MOUTH [place] 00 EVERY DAY Medical Branch METFORMIN 2021-11 Yes [id number] TAKE 1 U nivers 500 mg 1-18 TABLET BY ity of tablet 00:00: MOUTH [place] 00 TWICE A Medical DAY WITH Branch MEALS PRAVASTATIN 2021-11 Yes [id number] TAKE 1 Univers 80 mg 1-18 TABLET BY ity of tablet 00:00: MOUTH [place] 00 EVERYDAY Medical AT BEDTIME Branch CARVEDILOL 2021-11 Yes [id number] TAKE 1 U nivers 12.5 mg 1-18 TABLET BY ity of tablet 00:00: MOUTH [place] 00 TWICE A Medical DAY Branch FENOFIBRATE 2021-11 Yes [id number] 200mg TAKE 1 Univers MICRONIZED 1-18 CAPSULE BY ity of 200 mg 00:00: MOUTH [place] capsule 00 DAILY WITH Medica l BREAKFAST. Branch PAROXETINE 2021-11 Yes [id number] TAKE 1 U nivers 40 mg 1-18 TABLET BY ity of tablet 00:00: MOUTH [place] 00 EVERY DAY Medical Branch METFORMIN 2021-11 Yes [id number] TAKE 1 U nivers 500 mg 1-18 TABLET BY ity of tablet 00:00: MOUTH [place] 00 TWICE A Medical DAY WITH Branch MEALS PRAVASTATIN 2021-11 Yes [id number] TAKE 1 [facility] 80 mg 1-18 TABLET BY ity of tablet 00:00: MOUTH [place] 00 EVERYDAY Medical AT BEDTIME Branch CARVEDILOL 2021-11 Yes [id number] TAKE 1 U nivers 12.5 mg 1-18 TABLET BY ity of tablet 00:00: MOUTH [place] 00 TWICE A Medical DAY Branch FENOFIBRATE 2021-11 Yes [id number] 200mg TAKE 1 [facility] MICRONIZED 1-18 CAPSULE BY ity of 200 mg 00:00: MOUTH [place] capsule 00 DAILY WITH Medica l BREAKFAST. Branch PAROXETINE 2021-11 Yes [id number] TAKE 1 [facility] nivers 40 mg 1-18 TABLET BY ity of tablet 00:00: MOUTH [place] 00 EVERY DAY Medical Branch METFORMIN 2021-11 Yes [id number] TAKE 1 [facility] nivers 500 mg 1-18 TABLET BY ity of tablet 00:00: MOUTH [place] 00 TWICE A Medical DAY WITH Branch MEALS PRAVASTATIN 2021-11 Yes [id number] TAKE 1 [facility] 80 mg 1-18 TABLET BY ity of tablet 00:00: MOUTH [place] 00 EVERYDAY Medical AT BEDTIME Branch CARVEDILOL 2021-11 Yes [id number] TAKE 1 U nivers 12.5 mg 1-18 TABLET BY ity of tablet 00:00: MOUTH [place] 00 TWICE A Medical DAY Branch FENOFIBRATE 2021-11 Yes [id number] 200mg TAKE 1 [facility] MICRONIZED 1-18 CAPSULE BY ity of 200 mg 00:00: MOUTH [place] capsule 00 DAILY WITH Medica l BREAKFAST. Branch PAROXETINE 2021-11 Yes [id number] TAKE 1 [facility] nivers 40 mg 1-18 TABLET BY ity of tablet 00:00: MOUTH [place] 00 EVERY DAY Medical Branch METFORMIN 2021-11 Yes [id number] TAKE 1 [facility] nivers 500 mg 1-18 TABLET BY ity of tablet 00:00: MOUTH [place] 00 TWICE A Medical DAY WITH Branch MEALS PRAVASTATIN 2021-11 Yes [id number] TAKE 1 [facility] 80 mg 1-18 TABLET BY ity of tablet 00:00: MOUTH [place] 00 EVERYDAY Medical AT BEDTIME Branch CARVEDILOL 2021-11 Yes [id number] TAKE 1 [facility] nivers 12.5 mg 1-18 TABLET BY ity of tablet 00:00: MOUTH [place] 00 TWICE A Medical DAY Branch FENOFIBRATE 2021-11 Yes [id number] 200mg TAKE 1 [facility] MICRONIZED 1-18 CAPSULE BY ity of 200 mg 00:00: MOUTH [place] capsule 00 DAILY WITH Medica l BREAKFAST. Branch PAROXETINE 2021-11 Yes [id number] TAKE 1 [facility] nivers 40 mg 1-18 TABLET BY ity of tablet 00:00: MOUTH [place] 00 EVERY DAY Medical Branch METFORMIN 2021-11 Yes [id number] TAKE 1 [facility] n[facility] 500 mg 1-18 TABLET BY ity of tablet 00:00: MOUTH [place] 00 TWICE A Medical DAY WITH Branch MEALS PRAVASTATIN 2021-11 Yes [id number] TAKE 1 [facility] 80 mg 1-18 TABLET BY ity of tablet 00:00: MOUTH [place] 00 EVERYDAY Medical AT BEDTIME Branch CARVEDILOL 2021-11 Yes [id number] TAKE 1 [facility] nivers 12.5 mg 1-18 TABLET BY ity of tablet 00:00: MOUTH [place] 00 TWICE A Medical DAY Branch FENOFIBRATE 2021-11 Yes [id number] 200mg TAKE 1 [facility] MICRONIZED 1-18 CAPSULE BY ity of 200 mg 00:00: MOUTH [place] capsule 00 DAILY WITH Medica l BREAKFAST. Branch PAROXETINE 2021-11 Yes [id number] TAKE 1 [facility] n[facility] 40 mg 1-18 TABLET BY ity of tablet 00:00: MOUTH [place] 00 EVERY DAY Medical Branch METFORMIN 2021-11 Yes [id number] TAKE 1 [facility] 500 mg 1-18 TABLET BY ity of tablet 00:00: MOUTH [place] 00 TWICE A Medical DAY WITH Branch MEALS PRAVASTATIN 2021-11 Yes [id number] TAKE 1 [facility] 80 mg 1-18 TABLET BY ity of tablet 00:00: MOUTH [place] 00 EVERYDAY Medical AT BEDTIME Branch CARVEDILOL 2021-11 Yes [id number] TAKE 1 [facility] nivers 12.5 mg 1-18 TABLET BY ity of tablet 00:00: MOUTH [place] 00 TWICE A Medical DAY Branch FENOFIBRATE 2021-11 Yes [id number] 200mg TAKE 1 [facility] MICRONIZED 1-18 CAPSULE BY ity of 200 mg 00:00: MOUTH [place] capsule 00 DAILY WITH Medica l BREAKFAST. Branch PAROXETINE 2021-11 Yes [id number] TAKE 1 [facility] 40 mg 1-18 TABLET BY ity of tablet 00:00: MOUTH [place] 00 EVERY DAY Medical Branch METFORMIN 2021-11 Yes [id number] TAKE 1 [facility] 500 mg 1-18 TABLET BY ity of tablet 00:00: MOUTH [place] 00 TWICE A Medical DAY WITH Branch MEALS PRAVASTATIN 2021-11 Yes [id number] TAKE 1 [facility] 80 mg 1-18 TABLET BY ity of tablet 00:00: MOUTH [place] 00 EVERYDAY Medical AT BEDTIME Branch CARVEDILOL 2021-11 Yes [id number] TAKE 1 U nivers 12.5 mg 1-18 TABLET BY ity of tablet 00:00: MOUTH [place] 00 TWICE A Medical DAY Branch FENOFIBRATE 2021-11 Yes [id number] 200mg TAKE 1 [facility] MICRONIZED 1-18 CAPSULE BY ity of 200 mg 00:00: MOUTH [place] capsule 00 DAILY WITH Medica l BREAKFAST. Branch PAROXETINE 2021-11 Yes [id number] TAKE 1 [facility] 40 mg 1-18 TABLET BY ity of tablet 00:00: MOUTH [place] 00 EVERY DAY Medical Branch METFORMIN 2021-11 Yes [id number] TAKE 1 [facility] n[facility] 500 mg 1-18 TABLET BY ity of tablet 00:00: MOUTH [place] 00 TWICE A Medical DAY WITH Branch MEALS PRAVASTATIN 2021-11 Yes [id number] TAKE 1 [facility] 80 mg 1-18 TABLET BY ity of tablet 00:00: MOUTH [place] 00 EVERYDAY Medical AT BEDTIME Branch CARVEDILOL 2021-11 Yes [id number] TAKE 1 [facility] nivers 12.5 mg 1-18 TABLET BY ity of tablet 00:00: MOUTH [place] 00 TWICE A Medical DAY Branch FENOFIBRATE 2021-11 Yes [id number] 200mg TAKE 1 [facility] MICRONIZED 1-18 CAPSULE BY ity of 200 mg 00:00: MOUTH [place] capsule 00 DAILY WITH Medica l BREAKFAST. Branch PAROXETINE 2021-11 Yes [id number] TAKE 1 [facility] 40 mg 1-18 TABLET BY ity of tablet 00:00: MOUTH [place] 00 EVERY DAY Medical Branch METFORMIN 2021-11 Yes [id number] TAKE 1 [facility] 500 mg 1-18 TABLET BY ity of tablet 00:00: MOUTH [place] 00 TWICE A Medical DAY WITH Branch MEALS PRAVASTATIN 2021-11 Yes [id number] TAKE 1 [facility] 80 mg 1-18 TABLET BY ity of tablet 00:00: MOUTH [place] 00 EVERYDAY Medical AT BEDTIME Branch CARVEDILOL 2021-11 Yes [id number] TAKE 1 [facility] nivers 12.5 mg 1-18 TABLET BY ity of tablet 00:00: MOUTH [place] 00 TWICE A Medical DAY Branch FENOFIBRATE 2021-11 Yes [id number] 200mg TAKE 1 [facility] MICRONIZED 1-18 CAPSULE BY ity of 200 mg 00:00: MOUTH [place] capsule 00 DAILY WITH Medica l BREAKFAST. Branch PAROXETINE 2021-11 Yes [id number] TAKE 1 [facility] 40 mg 1-18 TABLET BY ity of tablet 00:00: MOUTH [place] 00 EVERY DAY Medical Branch METFORMIN 2021-11 Yes [id number] TAKE 1 [facility] 500 mg 1-18 TABLET BY ity of tablet 00:00: MOUTH [place] 00 TWICE A Medical DAY WITH Branch MEALS PRAVASTATIN 2021-11 Yes [id number] TAKE 1 [facility] 80 mg 1-18 TABLET BY ity of tablet 00:00: MOUTH [place] 00 EVERYDAY Medical AT BEDTIME Branch CARVEDILOL 2021-11 Yes [id number] TAKE 1 [facility] nivers 12.5 mg 1-18 TABLET BY ity of tablet 00:00: MOUTH [place] 00 TWICE A Medical DAY Branch FENOFIBRATE 2021-11 Yes [id number] 200mg TAKE 1 [facility] MICRONIZED 1-18 CAPSULE BY ity of 200 mg 00:00: MOUTH [place] capsule 00 DAILY WITH Medica l BREAKFAST. Branch PAROXETINE 2021-11 Yes [id number] TAKE 1 [facility] 40 mg 1-18 TABLET BY ity of tablet 00:00: MOUTH [place] 00 EVERY DAY Medical Branch ciprofloxac 2021-112- No 500mg Take 500 [facility] in HCl 500 1-18 12-07 mg by ity of mg tablet 00:00: 00:00 mouth in [place] 00 :00 the Medical morning Branch and 500 mg in the evening. metroNIDAZO 2021-11- No 500mg Take 500 [facility] LE 500 mg 1-18 12-07 mg by ity of tablet 00:00: 00:00 mouth [place] 00 :00 every 8 Medical (eight) Branch hours. ciprofloxac 2021-11- No 500mg Take 500 [facility] in HCl 500 1-18 12-07 mg by ity of mg tablet 00:00: 00:00 mouth in [place] 00 :00 the Medical morning Branch and 500 mg in the evening. metroNIDAZO 2021-11- No 500mg Take 500 [facility] LE 500 mg 1-18 12-07 mg by ity of tablet 00:00: 00:00 mouth [place] 00 :00 every 8 Medical (eight) Branch hours. ciprofloxac 2021-11- No 500mg Take 500 [facility] in HCl 500 1-18 12-07 mg by ity of mg tablet 00:00: 00:00 mouth in [place] 00 :00 the Medical morning Branch and 500 mg in the evening. metroNIDAZO 2021-11- No 500mg Take 500 [facility] LE 500 mg 1-18 12-07 mg by ity of tablet 00:00: 00:00 mouth [place] 00 :00 every 8 Medical (eight) Branch hours. HYDROcodone 2021-0 Yes 2745 1{tbl} Take 1 [...] 2745 1{tbl} Take 1 [facility] nivers -acetaminop 9-26 11-22 tablet by it y of hen 5-325 00:00: 00:00 [place] mg tablet 00 :00 (two) Medical times Branch daily as needed for Pain (scale 4-6). Indication s: chronic pain TROSPIUM Yes [id number] TAKE 1 [facility] mg tablet 9-16 TABLET BY ity o f 00:00: MOUTH IN [place] 00 THE Medical MORNING Branch AND 1 TABLET IN THE EVENING. NEEDS APPOINTMEN T TROSPIUM Yes [id number] TAKE 1 [facility] mg tablet 9-16 TABLET BY ity o f 00:00: MOUTH IN [place] 00 THE Medical MORNING Branch AND 1 TABLET IN THE EVENING. NEEDS APPOINTMEN T TROSPIUM Yes [id number] TAKE 1 [facility] mg tablet 9-16 TABLET BY ity o f 00:00: MOUTH IN [place] 00 THE Medical MORNING Branch AND 1 TABLET IN THE EVENING. NEEDS APPOINTMEN T TROSPIUM Yes [id number] TAKE 1 [facility] mg tablet 9-16 TABLET BY ity o f 00:00: MOUTH IN [place] 00 THE Medical MORNING Branch AND 1 TABLET IN THE EVENING. NEEDS APPOINTMEN T TROSPIUM Yes [id number] TAKE 1 [facility] mg tablet 9-16 TABLET BY ity o f 00:00: MOUTH IN [place] 00 THE Medical MORNING Branch AND 1 TABLET IN THE EVENING. NEEDS APPOINTMEN T TROSPIUM Yes [id number] TAKE 1 [facility] mg tablet 9-16 TABLET BY ity o f 00:00: MOUTH IN [place] 00 THE Medical MORNING Branch AND 1 TABLET IN THE EVENING. NEEDS APPOINTMEN T TROSPIUM Yes [id number] TAKE 1 [facility] mg tablet 9-16 TABLET BY ity o f 00:00: MOUTH IN [place] 00 THE Medical MORNING Branch AND 1 TABLET IN THE EVENING. NEEDS APPOINTMEN T TROSPIUM Yes [id number] TAKE 1 [facility] mg tablet 9-16 TABLET BY ity o f 00:00: MOUTH IN [place] 00 THE Medical MORNING Branch AND 1 TABLET IN THE EVENING. NEEDS APPOINTMEN T TROSPIUM Yes [id number] TAKE 1 [facility] mg tablet 9-16 TABLET BY ity o f 00:00: MOUTH IN [place] 00 THE Medical MORNING Branch AND 1 TABLET IN THE EVENING. NEEDS APPOINTEZEQUIEL [place] TROSPIUM 20 0 Yes [id number] TAKE 1 [facility] mg tablet 9-16 TABLET BY ity o f 00:00: MOUTH IN [place] 00 THE Medical MORNING Branch AND 1 TABLET IN THE EVENING. NEEDS APPOINTEZEQUIEL [place] TROSPIUM 20 0 Yes [id number] TAKE 1 [facility] mg tablet 9-16 TABLET BY ity o f 00:00: MOUTH IN [place] 00 THE Medical MORNING Branch AND 1 TABLET IN THE EVENING. NEEDS APPOINTEZEQUIEL [place] TROSPIUM 20 Yes [id number] TAKE 1 [facility] mg tablet 9-16 TABLET BY ity o f 00:00: MOUTH IN [place] 00 THE Medical MORNING Branch AND 1 TABLET IN THE EVENING. NEEDS APPOINTEZEQUIEL [place] TROSPIUM 20 Yes [id number] TAKE 1 [facility] mg tablet 9-16 TABLET BY ity o f 00:00: MOUTH IN [place] 00 THE Medical MORNING Branch AND 1 TABLET IN THE EVENING. NEEDS ALESSIA [place] TROSPIUM Yes [id number] TAKE 1 [facility] mg tablet 9-16 TABLET BY ity o f 00:00: MOUTH IN [place] 00 THE Medical MORNING Branch AND 1 TABLET IN THE EVENING. NEEDS ALESSIA [place] TROSPIUM Yes [id number] TAKE 1 [facility] mg tablet 9-16 TABLET BY ity o f 00:00: MOUTH IN [place] 00 THE Medical MORNING Branch AND 1 TABLET IN THE EVENING. NEEDS APPOINTEZEQUIEL [place] TROSPIUM Yes [id number] TAKE 1 [facility] mg tablet 9-16 TABLET BY ity o f 00:00: MOUTH IN [place] 00 THE Medical MORNING Branch AND 1 TABLET IN THE EVENING. NEEDS APPOINTEZEQUIEL Ryan TROSPIUM 0 Yes [id number] TAKE 1 [facility] mg tablet 9-16 TABLET BY ity o f 00:00: MOUTH IN [place] 00 THE Medical MORNING Branch AND 1 TABLET IN THE EVENING. NEEDS APPOINTEZEQUIEL [place] TROSPIUM 20 0 Yes [id number] TAKE 1 [facility] mg tablet 9-16 TABLET BY ity o f 00:00: MOUTH IN [place] 00 THE Medical MORNING Branch AND 1 TABLET IN THE EVENING. 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 INDICATION S: TO 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 Indication s: atrial fibrillati on apixaban 2021- No 1358 TAKE 1 Un[facility] s (ELIQUIS) 5 07-31-08 TABLET BY it y of mg tablet 00:00: 00:00 MOUTH [place] 00 :00 TWICE A Medical DAY TO Branch 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 INDICATION S: TO 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 Indication s: atrial fibrillati on neomycin-po 2021- No PRN, Unive rs lymyxin-dex 07-17 Starting ity of amethasone 15:52: 15:59 [place] ([place]IT[place]OL[place] 00 :09 07/17/22 at [facility] ical 3.5 1052, Branch mg/g-10,000 Until Fri unit/g-0.1 07/17/22 at % 1059, ophthalmic Routine, ointment Intra-op sodium 2021- No PRN, Univers chloride 07-17 Starting ity of (NS) 15:51: 15:59 on Fri [place] injection 00 :09 07/17/22 at [facility] aleksandra 1051, Branch Until Fri07/17/22 at 1059, Routine, Intra-op dexamethaso 2021- No PRN, Unive rs ne 07-17 Starting ity of (DECADRON 15:51: 15:59 on Fri [place] PHOSPHATE) 00 :09 07/17/22 at [facility] ical injection 1051, Branch Until Fri07/17/22 at 1059, Routine, Intra-op ceFAZolin 2021- No PRN, Univers (ANCEF) 07-17 Starting ity of injection 15:51: 15:59 on Fri [place] 00 :09 07/17/22 at Medical 1051, Branch Until Fri07/17/22 at 1059, COURTNEY, Intra-op carbachoL 2021- No PRN, Univers (MIOSTAT) 07-17 Starting ity o f 0.01 % 15:49: 15:59 on Fri intraocular 00 :09 07/17/22 at [place] dical injection 1049, Branch Until Fri07/17/22 at 1059, Routine, Intra-op EPINEPHrine 2021- No PRN, Unive rs 1:1,000 (1 07-17 Starting ity of mg/mL) 15:37: 15:59 on Fri [place] (ADRENALIN) 00 :09 07/17/22 at Id dical injection 1037, Branch Until Fri07/17/22 at [...] ity of soln comb1 15:37: 15:59 on [place] (BSS PLUS) 00 :09 07/17/22 at Med ical ophthalmic 1037, Branch solution Until Fri [...] o f Recomb. 15:30: 15:59 on Fri (HYLENEX) 00 :09 07/17/22 at [facility] ale[place] injection 1030, Branch Until Fri07/17/22 at 1059, Routine, Intra-op eye block 2021- No PRN, Univers syringe 11 07-17 Starting ity of mL 15:30: 15:59 on Fri [place] 00 :09 07/17/22 at Medical 1030, Branch Until Fri07/17/22 at 1059, Intra-op propofoL IV 2021- No Intravenou [facility] infusion 07-17 s, ONCE ity of 15:26: 15:58 INTRA [place] 00 :34 PROCEDURE, Medical Starting Branch on Fri07/17/22 at 1026, Until Fri07/17/22 at 1058, Routine, Intra-op labetaloL 2021- No Slow IV Univ ers (NORMODYNE) 07-17 Push, ONCE i ty of injection 15:21: 15:58 INTRA [place] 00 :34 PROCEDURE, Medical Starting Branch on [...] of 0.5 % 13:45: 13:49 ONCE, 1 [place] ophthalmic 00 :00 dose, On Medic al solution 1 Fri Branch Drop 07/17/22 at 0845, Routine, DSU Pre-op tropicamide 2021- No 1[drp] 1 Drop, Univers (MYDRIACYL) 07-17 Right Eye, i ty of 1 % 13:45: 13:49 ONCE, 1 [place] ophthalmic 00 :00 dose, On Medic al [...] 00 :00 dose, On Medic al solution Fri Branch Drop 07/17/22 at 0845, Routine, DSU Pre-op tropicamide 2021- No 1[drp] 1 Drop, Univers (MYDRIACYL) 07-17 Right Eye, i ty of 1 % 13:45: 13:49 ONCE, 1 [place] ophthalmic 00 :00 dose, On Medic al drops Fri Branch Drop 07/17/22 at 0845, Routine, DSU Pre-op phenylephri 2021- No 1[drp] 1 Drop, Univers ne 07-17 Right Eye, ity of (IVIS-SYNEPH 13:45: 13:49 [place]CE[place] 2.5 % 00 :00 dose, On Medi [place] ophthalmic Wed Branch drops 07/17/22 at Drop 0845, Routine, DSU Pre-op cyclopentol 2021- No 1[drp] 1 Drop, Univers ate 07-17 Right Eye, ity of (CYCLOGYL) 13:45: 13:50 ONCE, 1 [place] 1 % 00 :00 dose, On Medical ophthalmic Wed Branch drops 07/17/22 at Drop 0845, Routine, DSU Pre-op lactated 2021- No 1000mL at 42 Unive rs ringers IV 07-17 mL/hr, ity of infusion 13:45: 14:14 1,000 mL, [place] 1,000 mL 00 :00 IV Medical Infusion, Branch ONCE, 1 dose, On Fri07/17/22 at 0845, Routine, DSU Pre-op HYDROcodone Yes 2745 1{tbl} Take 1 Un kat -acetaminop 07-15 tablet by ity of hen 5-325 00:00: [...] 4-6). Indication s: chronic pain HYDROcodone 2021-0 2021- No 2745 1{tbl} Take 1 U nivers -acetaminop 8-22 - tablet by it y of hen 5-325 00:00: 00:00 mouth 2 [place] mg tablet 00 :00 (two) Medical times Branch daily as needed for Pain (scale 4-6). Indication s: chronic pain AMLODIPINE 2021-0 Yes [id number] TAKE 1 U nivers 5 mg tablet 8-09 TABLET BY ity of 00:00: MOUTH [place] 00 EVERY DAY Medical Branch AMLODIPINE 2021-0 Yes [id number] TAKE 1 U nivers 5 mg tablet 8-09 TABLET BY ity of 00:00: MOUTH [place] 00 EVERY DAY Medical Branch trospium 20 0 Yes [id number] 20mg Take 1 [facility] mg tablet 8-09 tablet by ity o f 00:00: mouth in [place] 00 the Medical morning Branch and 1 tablet in the evening. AMLODIPINE 2-0 Yes [id number] TAKE 1 U nivers 5 mg tablet 8-09 TABLET BY ity of 00:00: MOUTH [place] 00 EVERY DAY Medical Branch trospium 20 2-0 Yes [id number] 20mg Take 1 [facility] mg tablet 8-09 tablet by ity o f 00:00: mouth in [place] 00 the Medical morning Branch and 1 tablet in the evening. AMLODIPINE 2021-0 Yes [id number] TAKE 1 U nivers 5 mg tablet 8-09 TABLET BY ity of 00:00: MOUTH [place] 00 EVERY DAY Medical Branch trospium 20 2-0 Yes [id number] 20mg Take 1 [facility] mg tablet 8-09 tablet by ity o f 00:00: mouth in [place] 00 the Medical morning Branch and 1 tablet in the evening. AMLODIPINE 2021-0 Yes [id number] TAKE 1 U nivers 5 mg tablet 8-09 TABLET BY ity of 00:00: MOUTH [place] 00 EVERY DAY Medical Branch trospium 20 2021-0 Yes [id number] 20mg Take 1 [facility] mg tablet 8-09 tablet by ity o f 00:00: mouth in [place] 00 the Medical morning Branch and 1 tablet in the evening. AMLODIPINE 2021-0 Yes [id number] TAKE 1 U nivers 5 mg tablet 8-09 TABLET BY ity of 00:00: MOUTH [place] 00 EVERY DAY Medical Branch trospium 20 2-0 Yes [id number] 20mg Take 1 [facility] mg tablet 8-09 tablet by ity o f 00:00: mouth in [place] 00 the Medical morning Branch and 1 tablet in the evening. AMLODIPINE 2021-0 Yes [id number] TAKE 1 U nivers 5 mg tablet 8-09 TABLET BY ity of 00:00: MOUTH [place] 00 EVERY DAY Medical Branch trospium 20 2-0 Yes [id number] 20mg Take 1 [facility] mg tablet 8-09 tablet by ity o f 00:00: mouth in [place] 00 the Medical morning Branch and 1 tablet in the evening. AMLODIPINE 2021-0 Yes [id number] TAKE 1 U nivers 5 mg tablet 8-09 TABLET BY ity of 00:00: MOUTH [place] 00 EVERY DAY Medical Branch trospium 20 2-0 Yes [id number] 20mg Take 1 [facility] mg tablet 8-09 tablet by ity o f 00:00: mouth in [place] 00 the Medical morning Branch and 1 tablet in the evening. AMLODIPINE 2022-0 Yes [id number] TAKE 1 U nivers 5 mg tablet 8-09 TABLET BY ity of 00:00: MOUTH [place] 00 EVERY DAY Medical Branch trospium 20 2-0 Yes [id number] 20mg Take 1 [facility] mg tablet 8-09 tablet by ity o f 00:00: mouth in [place] 00 the Medical morning Branch and 1 tablet in the evening. AMLODIPINE 2-0 Yes [id number] TAKE 1 U nivers 5 mg tablet 8-09 TABLET BY ity of 00:00: MOUTH [place] 00 EVERY DAY Medical Branch AMLODIPINE 2-0 Yes [id number] TAKE 1 U nivers 5 mg tablet 8-09 TABLET BY ity of 00:00: MOUTH [place] 00 EVERY DAY Medical Branch AMLODIPINE 2-0 Yes [id number] TAKE 1 U nivers 5 mg tablet 8-09 TABLET BY ity of 00:00: MOUTH [place] 00 EVERY DAY Medical Branch AMLODIPINE 2-0 Yes [id number] TAKE 1 U nivers 5 mg tablet 8-09 TABLET BY ity of 00:00: MOUTH [place] 00 EVERY DAY Medical Branch AMLODIPINE 2022-0 Yes [id number] TAKE 1 U nivers 5 mg tablet 8-09 TABLET BY ity of 00:00: MOUTH [place] 00 EVERY DAY Medical Branch AMLODIPINE 2022-0 Yes [id number] TAKE 1 U nivers 5 mg tablet 8-09 TABLET BY ity of 00:00: MOUTH [place] 00 EVERY DAY Medical Branch AMLODIPINE 2022-0 Yes [id number] TAKE 1 U nivers 5 mg tablet 8-09 TABLET BY ity of 00:00: MOUTH [place] 00 EVERY DAY Medical Branch AMLODIPINE 2022-0 Yes [id number] TAKE 1 U nivers 5 mg tablet 8-09 TABLET BY ity of 00:00: MOUTH [place] 00 EVERY DAY Medical Branch AMLODIPINE 2022-0 Yes [id number] TAKE 1 U nivers 5 mg tablet 8-09 TABLET BY ity of 00:00: MOUTH [place] 00 EVERY DAY Medical Branch AMLODIPINE 2022-0 Yes [id number] TAKE 1 U nivers 5 mg tablet 8-09 TABLET BY ity of 00:00: MOUTH [place] 00 EVERY DAY Medical Branch AMLODIPINE 2021-0 Yes [id number] TAKE 1 U nivers 5 mg tablet 8-09 TABLET BY ity of 00:00: MOUTH [place] 00 EVERY DAY Medical Branch AMLODIPINE 2021-0 Yes [id number] TAKE 1 U nivers 5 mg tablet 8-09 TABLET BY ity of 00:00: MOUTH [place] 00 EVERY DAY Medical Branch AMLODIPINE 2021-0 Yes [id number] TAKE 1 U nivers 5 mg tablet 8-09 TABLET BY ity of 00:00: MOUTH [place] 00 EVERY DAY Medical Branch AMLODIPINE 2021-0 Yes [id number] TAKE 1 U nivers 5 mg tablet 8-09 TABLET BY ity of 00:00: MOUTH [place] 00 EVERY DAY Medical Branch AMLODIPINE 2021-0 Yes [id number] TAKE 1 U nivers 5 mg tablet 8-09 TABLET BY ity of 00:00: MOUTH [place] 00 EVERY DAY Medical Branch AMLODIPINE 2021-0 Yes [id number] TAKE 1 U nivers 5 mg tablet 8-09 TABLET BY ity of 00:00: MOUTH [place] 00 EVERY DAY Medical Branch AMLODIPINE 2021-0 Yes [id number] TAKE 1 U nivers 5 mg tablet 8-09 TABLET BY ity of 00:00: MOUTH [place] 00 EVERY DAY Medical Branch AMLODIPINE 2021-0 Yes [id number] TAKE 1 U nivers 5 mg tablet 8-09 TABLET BY ity of 00:00: MOUTH [place] 00 EVERY DAY Medical Branch AMLODIPINE 2021-0 Yes [id number] TAKE 1 U nivers 5 mg tablet 8-09 TABLET BY ity of 00:00: MOUTH [place] 00 EVERY DAY Medical Branch trospium 20 2021-0 2022- No [id number] 20mg Take 1 [facility] mg tablet 8-16 tablet by ity of 00:00: 00:00 mouth in [place] 00 :00 the Medical morning Branch and 1 tablet in the evening. HYDROcodone 2021-0 Yes 2745 1{tbl} Take 1 [...] 4-6). Indication s: chronic pain HYDROcodone 2021-0 2021- No 2745 1{tbl} Take [...] 4-6). Indication s: chronic pain HYDROcodone 2021-0 2- No 2745 1{tbl} Take 1 U nivers [...] Indication s: chronic pain AMLODIPINE 2021-0 Yes [id number] TAKE 1 U nivers 5 mg tablet 5-31 TABLET BY ity of 00:00: MOUTH [place] 00 EVERY DAY Medical Branch AMLODIPINE 2021-0 Yes [id number] TAKE 1 U nivers 5 mg tablet 5-31 TABLET BY ity of 00:00: MOUTH [place] 00 EVERY DAY Medical Branch AMLODIPINE 2021-0 Yes [id number] TAKE 1 U nivers 5 mg tablet 5-31 TABLET BY ity of 00:00: MOUTH [place] 00 EVERY DAY Medical Branch AMLODIPINE 2021-0 2021- No [id number] TAKE 1 [facility] 5 mg tablet 5-31 [...] (scale 4-6). Indication s: chronic pain sulfamethox 2021-0 2021- No [id number] 1{tbl} Take 1 [facility] azole-trime 5-31 06-06 tablet by it y of thoprim 00:00: 04:59 mouth 2 [place] (BACTRIM 00 :00 (two) Medical DS) 800-160 times Branch mg per daily for tablet 5 days. sulfamethox 2021-0 2021- No [id number] 1{tbl} Take 1 [facility] azole-trime 5-31 06-06 tablet by it y of thoprim 00:00: 04:59 mouth 2 [place] (BACTRIM 00 :00 (two) Medical DS) 800-160 times Branch mg per daily for tablet 5 days. trospium 20 2022-0 Yes [id number] 20mg Take 1 [facility] mg tablet 5-26 tablet by ity o f 00:00: mouth 2 [place] (two) Medical times Branch daily. trospium 20 2021-0 Yes [id number] 20mg Take 1 [facility] mg tablet 5-26 tablet by ity o f 00:00: mouth 2 [place] (two) Medical times Branch daily. trospium 20 2021-0 Yes [id number] 20mg Take 1 [facility] mg tablet 5-26 tablet by ity o f 00:00: mouth 2 [place] (two) Medical times Branch daily. trospium 20 0 Yes [id number] 20mg Take 1 [facility] mg tablet 5-26 tablet by ity o f 00:00: mouth 2 [place] (two) Medical times Branch daily. trospium 20 0 Yes [id number] 20mg Take 1 [facility] mg tablet 5-26 tablet by ity o f 00:00: mouth 2 [place] (two) Medical times Branch daily. trospium 20 0 Yes [id number] 20mg Take 1 [facility] mg tablet 5-26 tablet by ity o f 00:00: mouth [place] (two) Medical times Branch daily. trospium 20 2021-0 Yes [id number] 20mg Take 1 [facility] mg tablet 5-26 tablet by ity o f 00:00: mouth 2 [place] (two) Medical times Branch daily. trospium 20 2021- No [id number] 20mg Take 1 [facility] mg tablet 5-26 08-09 tablet by ity of 00:00: 00:[address] [place] [address] 00 :00 (two) Medical times Branch daily. oxybutynin 2021- No [id number] 10mg Take 1 [facility] 10 mg 24 hr 5-25 05-25 tablet by it y of tablet 00:00: 00:00 mouth [place] 00 :00 daily for Medical 1 day. Branch fenofibrate 0 Yes [id number] 200mg Take 1 [facility] micronized 5-11 capsule by ity of 200 mg 00:00: mouth [place] capsule 00 daily with Medica l breakfast. Branch pravastatin Yes [id number] 80mg Take 1 [facility] 80 mg 5-11 tablet by ity of tablet 00:00: mouth at [place] 00 bedtime. Medical Branch PARoxetine 2021-0 Yes [id number] 40mg Take 1 U nivers 40 mg 5-11 tablet by ity of tablet 00:00: mouth [place] 00 daily. Medical Branch pantoprazol 2021-0 Yes [id number] 40mg Take 1 Univers e 40 mg EC 5-11 tablet by ity of tablet 00:00: mouth [place] 00 every Medical morning. Branch metFORMIN 2021-0 Yes [id number] 500mg Take 1 [facility] 500 mg 5-11 tablet by ity of tablet 00:00: mouth 2 (two) Medical times Branch daily with meals. carvediloL 0 Yes [id number] 12.5mg Take 1 [facility] 12.5 mg 5-11 tablet by ity of tablet 00:00: mouth 2 (two) Medical times Branch daily. fenofibrate 0 Yes [id number] 200mg Take 1 [facility] micronized 5-11 capsule by ity of 200 mg 00:00: mouth [place] capsule 00 daily with Medica l breakfast. Branch pravastatin 0 Yes [id number] 80mg Take 1 [facility] 80 mg 5-11 tablet by ity of tablet 00:00: mouth at [place] 00 bedtime. Medical Branch PARoxetine 2021-0 Yes [id number] 40mg Take 1 [facility] 40 mg 5-11 tablet by [facility] tablet 00:00: mouth [place] 00 daily. Medical Branch pantoprazol 2021-0 Yes [id number] 40mg Take 1 [facility] e 40 mg EC 5-11 tablet by [facility] of tablet 00:00: mouth [place] 00 every Medical morning. Branch metFORMIN 2021-0 Yes [id number] 500mg Take 1 [facility] 500 mg 5-11 tablet by [facility] of tablet 00:00: mouth (two) Medical times Branch daily with meals. carvediloL 2021-0 Yes [id number] 12.5mg Take 1 [facility] 12.5 mg 5-11 tablet by [facility] of tablet 00:00: mouth 2 00 (two) Medical times Branch daily. fenofibrate 2021-0 Yes [id number] 200mg Take 1 [facility] micronized 5-11 capsule by [facility] of 200 mg 00:00: mouth [place] capsule 00 daily with Medica l breakfast. Branch pravastatin 2021-0 Yes [id number] 80mg Take 1 [facility] 80 mg 5-11 tablet by [facility] tablet 00:00: mouth at [place] 00 bedtime. Medical Branch PARoxetine 2021-0 Yes [id number] 40mg Take 1 [facility] 40 mg 5-11 tablet by [facility] of tablet 00:00: mouth [place] 00 daily. Medical Branch pantoprazol 2021-0 Yes [id number] 40mg Take 1 [facility] e 40 mg EC 5-11 tablet by [facility] of tablet 00:00: mouth [place] 00 every Medical morning. Branch metFORMIN 2021-0 Yes [id number] 500mg Take 1 [facility] 500 mg 5-11 tablet by [facility] of tablet 00:00: mouth 2 (two) Medical times Branch daily with meals. carvediloL 0 Yes [id number] 12.5mg Take 1 [facility] 12.5 mg 5-11 tablet by [facility] of tablet 00:00: mouth 2 (two) Medical times Branch daily. fenofibrate 0 Yes [id number] 200mg Take 1 [facility] micronized 5-11 capsule by [facility] of 200 mg 00:00: mouth [place] capsule 00 daily with Medica l breakfast. Branch pravastatin 2021-0 Yes [id number] 80mg Take 1 [facility] 80 mg 5-11 tablet by [facility] of tablet 00:00: mouth at [place] 00 bedtime. Medical Branch PARoxetine 0 Yes [id number] 40mg Take 1 [facility] 40 mg 5-11 tablet by [facility] of tablet 00:00: mouth [place] 00 daily. Medical Branch pantoprazol 2021-0 Yes [id number] 40mg Take 1 [facility] e 40 mg EC 5-11 tablet by [facility] of tablet 00:00: mouth [place] 00 every Medical morning. Branch metFORMIN 2021-0 Yes [id number] 500mg Take 1 [facility] 500 mg 5-11 tablet by [facility] of tablet 00:00: mouth 2 (two) Medical times Branch daily with meals. carvediloL 2021-0 Yes [id number] 12.5mg Take 1 [facility] 12.5 mg 5-11 tablet by [facility] of tablet 00:00: mouth 2 00 (two) Medical times Branch daily. fenofibrate 2021-0 Yes [id number] 200mg Take 1 [facility] micronized 5-11 capsule by [facility] of 200 mg 00:00: mouth [place] capsule 00 daily with Medica l breakfast. Branch pravastatin 0 Yes [id number] 80mg Take 1 [facility] 80 mg 5-11 tablet by [facility] of tablet 00:00: mouth at [place] 00 bedtime. Medical Branch PARoxetine 0 Yes [id number] 40mg Take 1 [facility] 40 mg 5-11 tablet by [facility] of tablet 00:00: mouth [place] 00 daily. Medical Branch pantoprazol 2021-0 Yes [id number] 40mg Take 1 [facility] e 40 mg EC 5-11 tablet by [facility] of tablet 00:00: mouth [place] 00 every Medical morning. Branch metFORMIN 0 Yes [id number] 500mg Take 1 [facility] 500 mg 5-11 tablet by [facility] of tablet 00:00: mouth (two) Medical times Branch daily with meals. carvediloL 0 Yes [id number] 12.5mg Take 1 [facility] 12.5 mg 5-11 tablet by [facility] of tablet 00:00: mouth 2 (two) Medical times Branch daily. fenofibrate 2021-0 Yes [id number] 200mg Take 1 [facility] micronized 5-11 capsule by [facility] of 200 mg 00:00: mouth 00 daily with Medica l breakfast. Branch pravastatin 2021-0 Yes [id number] 80mg Take 1 [facility] 80 mg 5-11 tablet by [facility] of tablet 00:00: mouth at [place] 00 bedtime. Medical Branch PARoxetine 0 Yes [id number] 40mg Take 1 [facility] 40 mg 5-11 tablet by [facility] of tablet 00:00: mouth [place] 00 daily. Medical Branch pantoprazol 2021-0 Yes [id number] 40mg Take 1 [facility] e 40 mg EC 5-11 tablet by [facility] of tablet 00:00: mouth [place] 00 every Medical morning. Branch metFORMIN 2021-0 Yes [id number] 500mg Take 1 [facility] 500 mg 5-11 tablet by [facility] of tablet 00:00: mouth (two) Medical times Branch daily with meals. carvediloL 2021-0 Yes [id number] 12.5mg Take 1 [facility] 12.5 mg 5-11 tablet by [facility] of tablet 00:00: mouth 2 (two) Medical times Branch daily. fenofibrate 2021-0 Yes [id number] 200mg Take 1 [facility] micronized 5-11 capsule by [facility] of 200 mg 00:00: mouth [place] capsule 00 daily with Medica l breakfast. Branch pravastatin 2021-0 Yes [id number] 80mg Take 1 [facility] 80 mg 5-11 tablet by [facility] of tablet 00:00: mouth at [place] 00 bedtime. Medical Branch PARoxetine 2021-0 Yes [id number] 40mg Take 1 [facility] 40 mg 5-11 tablet by [facility] of tablet 00:00: mouth [place] 00 daily. Medical Branch pantoprazol 2021-0 Yes [id number] 40mg Take 1 [facility] e 40 mg EC 5-11 tablet by [facility] of tablet 00:00: mouth 00 every Medical morning. Branch metFORMIN 2021-0 Yes [id number] 500mg Take 1 [facility] 500 mg 5-11 tablet by [facility] of tablet 00:00: mouth (two) Medical times Branch daily with meals. carvediloL 0 Yes [id number] 12.5mg Take 1 [facility] 12.5 mg 5-11 tablet by [facility] of tablet 00:00: mouth (two) Medical times Branch daily. fenofibrate 2021-0 Yes [id number] 200mg Take 1 [facility] micronized 5-11 capsule by [facility] of 200 mg 00:00: mouth [place] capsule 00 daily with Medica l breakfast. Branch pravastatin 2021-0 Yes [id number] 80mg Take 1 [facility] 80 mg 5-11 tablet by [facility] of tablet 00:00: mouth at 00 bedtime. Medical Branch PARoxetine 2021-0 Yes [id number] 40mg Take 1 [facility] 40 mg 5-11 tablet by [facility] tablet 00:00: mouth 00 daily. Medical Branch pantoprazol 2021-0 Yes [id number] 40mg Take 1 [facility] e 40 mg EC 5-11 tablet by [facility] of tablet 00:00: mouth 00 every Medical morning. Branch metFORMIN 2021-0 Yes [id number] 500mg Take 1 [facility] 500 mg 5-11 tablet by [facility] of tablet 00:00: mouth (two) Medical times Branch daily with meals. carvediloL 2021-0 Yes [id number] 12.5mg Take 1 [facility] 12.5 mg 5-11 tablet by [facility] of tablet 00:00: mouth 2 (two) Medical times Branch daily. fenofibrate 2021-0 Yes [id number] 200mg Take 1 [facility] micronized 5-11 capsule by [facility] of 200 mg 00:00: mouth [place] capsule 00 daily with Medica l breakfast. Branch pravastatin 0 Yes [id number] 80mg Take 1 [facility] 80 mg 5-11 tablet by [facility] of tablet 00:00: mouth at [place] 00 bedtime. Medical Branch PARoxetine 0 Yes [id number] 40mg Take 1 [facility] 40 mg 5-11 tablet by [facility] of tablet 00:00: mouth [place] 00 daily. Medical Branch pantoprazol 0 Yes [id number] 40mg Take 1 [facility] e 40 mg EC 5-11 tablet by [facility] of tablet 00:00: mouth 00 every Medical morning. Branch metFORMIN 0 Yes [id number] 500mg Take 1 [facility] 500 mg 5-11 tablet by [facility] of tablet 00:00: mouth (two) Medical times Branch daily with meals. carvediloL Yes [id number] 12.5mg Take 1 [facility] 12.5 mg 5-11 tablet by [facility] of tablet 00:00: mouth (two) Medical times Branch daily. fenofibrate 0 Yes [id number] 200mg Take 1 [facility] micronized 5-11 capsule by [facility] of 200 mg 00:00: mouth [place] capsule 00 daily with Medica l breakfast. Branch pravastatin Yes [id number] 80mg Take 1 [facility] 80 mg 5-11 tablet by [facility] of tablet 00:00: mouth at [place] 00 bedtime. Medical Branch PARoxetine 0 Yes [id number] 40mg Take 1 [facility] 40 mg 5-11 tablet by [facility] of tablet 00:00: mouth [place] 00 daily. Medical Branch pantoprazol 0 Yes [id number] 40mg Take 1 [facility] 40 mg EC 5-11 tablet by [facility] of tablet 00:00: mouth 00 every Medical morning. Branch metFORMIN 2021-0 Yes [id number] 500mg Take 1 [facility] 500 mg 5-11 tablet by [facility] of tablet 00:00: mouth (two) Medical times Branch daily with meals. carvediloL 0 Yes [id number] 12.5mg Take 1 [facility] 12.5 mg 5-11 tablet by [facility] of tablet 00:00: mouth 2 (two) Medical times Branch daily. fenofibrate 0 Yes [id number] 200mg Take 1 [facility] micronized 5-11 capsule by [facility] of 200 mg 00:00: mouth [place] capsule 00 daily with Medica l breakfast. Branch pravastatin Yes [id number] 80mg Take 1 [facility] 80 mg 5-11 tablet by [facility] of tablet 00:00: mouth at [place] 00 bedtime. Medical Branch PARoxetine 0 Yes [id number] 40mg Take 1 [facility] 40 mg 5-11 tablet by [facility] of tablet 00:00: mouth [place] 00 daily. Medical Branch pantoprazol Yes [id number] 40mg Take 1 [facility] e 40 mg EC 5-11 tablet by [facility] of tablet 00:00: mouth [place] 00 every Medical morning. Branch metFORMIN Yes [id number] 500mg Take 1 [facility] 500 mg 5-11 tablet by [facility] of tablet 00:00: mouth 2 (two) Medical times Branch daily with meals. carvediloL Yes [id number] 12.5mg Take 1 [facility] 12.5 mg 5-11 tablet by [facility] of tablet 00:00: mouth 2 (two) Medical times Branch daily. fenofibrate Yes [id number] 200mg Take 1 [facility] micronized 5-11 capsule by [facility] of 200 mg 00:00: mouth [place] capsule 00 daily with Medica l breakfast. Branch pravastatin Yes [id number] 80mg Take 1 [facility] 80 mg 5-11 tablet by [facility] of tablet 00:00: mouth at [place] 00 bedtime. Medical Branch PARoxetine 0 Yes [id number] 40mg Take 1 [facility] 40 mg 5-11 tablet by [facility] of tablet 00:00: mouth [place] 00 daily. Medical Branch pantoprazol 0 Yes [id number] 40mg Take 1 [facility] e 40 mg EC 5-11 tablet by [facility] of tablet 00:00: mouth [place] 00 every Medical morning. Branch metFORMIN 0 Yes [id number] 500mg Take 1 [facility] 500 mg 5-11 tablet by [facility] of tablet 00:00: mouth 2 (two) Medical times Branch daily with meals. carvediloL 0 Yes [id number] 12.5mg Take 1 [facility] 12.5 mg 5-11 tablet by [facility] of tablet 00:00: mouth 2 (two) Medical times Branch daily. fenofibrate 2021-0 Yes [id number] 200mg Take 1 [facility] micronized 5-11 capsule by [facility] of 200 mg 00:00: mouth [place] capsule 00 daily with Medica l breakfast. Branch pravastatin 0 Yes [id number] 80mg Take 1 [facility] 80 mg 5-11 tablet by [facility] of tablet 00:00: mouth at [place] 00 bedtime. Medical Branch PARoxetine 0 Yes [id number] 40mg Take 1 [facility] 40 mg 5-11 tablet by [facility] of tablet 00:00: mouth [place] 00 daily. Medical Branch pantoprazol 0 Yes [id number] 40mg Take 1 [facility] e 40 mg EC 5-11 tablet by [facility] of tablet 00:00: mouth [place] 00 every Medical morning. Branch metFORMIN 0 Yes [id number] 500mg Take 1 [facility] 500 mg 5-11 tablet by [facility] of tablet 00:00: mouth (two) Medical times Branch daily with meals. carvediloL 0 Yes [id number] 12.5mg Take 1 [facility] 12.5 mg 5-11 tablet by [facility] of tablet 00:00: mouth (two) Medical times Branch daily. fenofibrate 2021-0 Yes [id number] 200mg Take 1 [facility] micronized 5-11 capsule by [facility] of 200 mg 00:00: mouth [place] capsule 00 daily with Medica l breakfast. Branch pravastatin 0 Yes [id number] 80mg Take 1 [facility] 80 mg 5-11 tablet by [facility] of tablet 00:00: mouth at [place] 00 bedtime. Medical Branch PARoxetine 2021-0 Yes [id number] 40mg Take 1 [facility] 40 mg 5-11 tablet by [facility] of tablet 00:00: mouth [place] 00 daily. Medical Branch pantoprazol 2021-0 Yes [id number] 40mg Take 1 [facility] e 40 mg EC 5-11 tablet by [facility] of tablet 00:00: mouth [place] 00 every Medical morning. Branch metFORMIN 2021-0 Yes [id number] 500mg Take 1 [facility] 500 mg 5-11 tablet by [facility] of tablet 00:00: mouth 2 (two) Medical times Branch daily with meals. carvediloL 2021-0 Yes [id number] 12.5mg Take 1 [facility] 12.5 mg 5-11 tablet by [facility] of tablet 00:00: mouth 2 (two) Medical times Branch daily. fenofibrate 0 Yes [id number] 200mg Take 1 [facility] micronized 5-11 capsule by [facility] of 200 mg 00:00: mouth [place] capsule 00 daily with Medica l breakfast. Branch pravastatin 0 Yes [id number] 80mg Take 1 [facility] 80 mg 5-11 tablet by [facility] of tablet 00:00: mouth at [place] 00 bedtime. Medical Branch PARoxetine 0 Yes [id number] 40mg Take 1 [facility] 40 mg 5-11 tablet by [facility] of tablet 00:00: mouth [place] 00 daily. Medical Branch pantoprazol 0 Yes [id number] 40mg Take 1 [facility] e 40 mg EC 5-11 tablet by [facility] of tablet 00:00: mouth 00 every Medical morning. Branch metFORMIN 0 Yes [id number] 500mg Take 1 [facility] 500 mg 5-11 tablet by [facility] of tablet 00:00: mouth (two) Medical times Branch daily with meals. carvediloL 0 Yes [id number] 12.5mg Take 1 [facility] 12.5 mg 5-11 tablet by [facility] of tablet 00:00: mouth (two) Medical times Branch daily. fenofibrate Yes [id number] 200mg Take 1 [facility] micronized 5-11 capsule by [facility]y of 200 mg 00:00: mouth [place] capsule 00 daily with Medica l breakfast. Branch pravastatin 0 Yes [id number] 80mg Take 1 [facility] 80 mg 5-11 tablet by [facility] of tablet 00:00: mouth at [place] 00 bedtime. Medical Branch PARoxetine 2021-0 Yes [id number] 40mg Take 1 [facility] 40 mg 5-11 tablet by [facility] of tablet 00:00: mouth [place] 00 daily. Medical Branch pantoprazol 2021-0 Yes [id number] 40mg Take 1 [facility] e 40 mg EC 5-11 tablet by [facility] of tablet 00:00: mouth [place] 00 every Medical morning. Branch metFORMIN 2021-0 Yes [id number] 500mg Take 1 [facility] 500 mg 5-11 tablet by [facility] of tablet 00:00: mouth 2 [place] 00 (two) Medical times Branch daily with meals. carvediloL 2021-0 Yes [id number] 12.5mg Take 1 [facility] 12.5 mg 5-11 tablet by [facility] of tablet 00:00: mouth 2 (two) Medical times Branch daily. fenofibrate 2021-0 Yes [id number] 200mg Take 1 [facility] micronized 5-11 capsule by [facility] of 200 mg 00:00: mouth [place] capsule 00 daily with Medica l breakfast. Branch pravastatin 2021-0 Yes [id number] 80mg Take 1 [facility] 80 mg 5-11 tablet by [facility] of tablet 00:00: mouth at [place] 00 bedtime. Medical Branch PARoxetine 2021-0 Yes [id number] 40mg Take 1 [facility] 40 mg 5-11 tablet by [facility] of tablet 00:00: mouth [place] 00 daily. Medical Branch pantoprazol 2021-0 Yes [id number] 40mg Take 1 [facility] e 40 mg EC 5-11 tablet by ity of tablet 00:00: mouth [place] 00 every Medical morning. Branch metFORMIN 2021-0 Yes [id number] 500mg Take 1 [facility] 500 mg 5-11 tablet by [facility] of tablet 00:00: mouth 2 (two) Medical times Branch daily with meals. carvediloL 0 Yes [id number] 12.5mg Take 1 [facility] 12.5 mg 5-11 tablet by it[facility] of tablet 00:00: mouth 2 (two) Medical times Branch daily. fenofibrate 2021-0 Yes [id number] 200mg Take 1 [facility] micronized 5-11 capsule by [facility] of 200 mg 00:00: mouth [place] capsule 00 daily with Medica l breakfast. Branch pravastatin 2021-0 Yes [id number] 80mg Take 1 [facility] 80 mg 5-11 tablet by it[facility] of tablet 00:00: mouth at [place] 00 bedtime. Medical Branch PARoxetine 2021-0 Yes [id number] 40mg Take 1 [facility] 40 mg 5-11 tablet by [facility] of tablet 00:00: mouth [place] 00 daily. Medical Branch pantoprazol 2021-0 Yes [id number] 40mg Take 1 [facility] e 40 mg EC 5-11 tablet by it[facility] of tablet 00:00: mouth [place] 00 every Medical morning. Branch metFORMIN 2021-0 Yes [id number] 500mg Take 1 [facility] 500 mg 5-11 tablet by [facility] of tablet 00:00: mouth 2 00 (two) Medical times Branch daily with meals. carvediloL 2021-0 Yes [id number] 12.5mg Take 1 [facility] 12.5 mg 5-11 tablet by [facility] of tablet 00:00: mouth 2 [place] 00 (two) Medical times Branch daily. fenofibrate 2021-0 Yes [id number] 200mg Take 1 [facility] micronized 5-11 capsule by [facility] of 200 mg 00:00: mouth [place] capsule 00 daily with Medica l breakfast. Branch pantoprazol 2021-0 Yes [id number] 40mg Take 1 [facility] e 40 mg EC 5-11 tablet by [facility] of tablet 00:00: mouth [place] 00 every Medical morning. Branch pantoprazol 2021-0 Yes [id number] 40mg Take 1 [facility] 40 mg EC 5-11 tablet by [facility] of tablet 00:00: mouth [place] 00 every Medical morning. Branch pantoprazol 2021-0 Yes [id number] 40mg Take 1 [facility] 40 mg EC 5-11 tablet by it[facility] of tablet 00:00: mouth [place] 00 every Medical morning. Branch pantoprazol 2021-0 Yes [id number] 40mg Take 1 [facility] e 40 mg EC 5-11 tablet by ity of tablet 00:00: mouth [place] 00 every Medical morning. Branch pantoprazol 2021-0 Yes [id number] 40mg Take 1 [facility] e 40 mg EC 5-11 tablet by ity of tablet 00:00: mouth [place] 00 every Medical morning. Branch pantoprazol 2021-0 Yes [id number] 40mg Take 1 [facility] 40 mg EC 5-11 tablet by it[facility] of tablet 00:00: mouth [place] 00 every Medical morning. Branch pantoprazol 2021-0 Yes [id number] 40mg Take 1 [facility] 40 mg EC 5-11 tablet by ity of tablet 00:00: mouth [place] 00 every Medical morning. Branch pantoprazol 2021-0 Yes [id number] 40mg Take 1 [facility] 40 mg EC 5-11 tablet by it[facility] of tablet 00:00: mouth [place] 00 every Medical morning. Branch pantoprazol 2021-0 Yes [id number] 40mg Take 1 [facility] 40 mg EC 5-11 tablet by ity of tablet 00:00: mouth [place] 00 every Medical morning. Branch pantoprazol 2021-0 Yes [id number] 40mg Take 1 [facility] e 40 mg EC 5-11 tablet by ity of tablet 00:00: mouth [place] 00 every Medical morning. Branch pantoprazol 2021-0 Yes [id number] 40mg Take 1 [facility] e 40 mg EC 5-11 tablet by ity of tablet 00:00: mouth [place] 00 every Medical morning. Branch pantoprazol 2021-0 Yes [id number] 40mg Take 1 [facility] e 40 mg EC 5-11 tablet by ity of tablet 00:00: mouth [place] 00 every Medical morning. Branch pantoprazol 2021-0 Yes [id number] 40mg Take 1 [facility] e 40 mg EC 5-11 tablet by ity of tablet 00:00: mouth [place] 00 every Medical morning. Branch pantoprazol 2021-0 Yes [id number] 40mg Take 1 [facility] e 40 mg EC 5-11 tablet by ity of tablet 00:00: mouth [place] 00 every Medical morning. Branch pantoprazol 2021-0 Yes [id number] 40mg Take 1 [facility] e 40 mg EC 5-11 tablet by ity of tablet 00:00: mouth [place] 00 every Medical morning. Branch pravastatin 2021-0 Yes [id number] 80mg Take 1 [facility] 80 mg 5-11 tablet by ity of tablet 00:00: mouth at [place] 00 bedtime. Medical Branch PARoxetine 2021-0 Yes [id number] 40mg Take 1 [facility] 40 mg 5-11 tablet by it[facility] of tablet 00:00: mouth [place] 00 daily. Medical Branch pantoprazol 2021-0 Yes [id number] 40mg Take 1 [facility] e 40 mg EC 5-11 tablet by ity of tablet 00:00: mouth [place] 00 every Medical morning. Branch metFORMIN 2021-0 Yes [id number] 500mg Take 1 [facility] 500 mg 5-11 tablet by [facility]y of tablet 00:00: mouth 2 00 (two) Medical times Branch daily with meals. carvediloL 2021-0 Yes [id number] 12.5mg Take 1 [facility] 12.5 mg 5-11 tablet by ity of tablet 00:00: mouth 2 [place] 00 (two) Medical times Branch daily. pravastatin 2021-0 2021- No [id number] 80mg Take 1 [facility] 80 mg 5-11 11-18 tablet by it[facility] of tablet 00:00: 00:00 mouth at [place] 00 :00 bedtime. Medical Branch PARoxetine 2021- No [id number] 40mg Take 1 [facility] 40 mg 5-10 04-18 tablet by it[facility] of tablet 00:00: 00:00 mouth [place] 00 :00 daily. Medical Branch metFORMIN 2021- No [id number] 500mg Take 1 [facility] 500 mg 5-11 11-18 tablet by ity of tablet 00:00: 00:00 mouth 2 [place] 00 :00 (two) Medical times Branch daily with meals. carvediloL 2021- No [id number] 12.5mg Take 1 [facility] 12.5 mg 5-10 04-18 tablet by ity of tablet 00:00: 00:00 mouth 2 [place] 00 :00 (two) Medical times Branch daily. fenofibrate 2021- No [id number] 200mg Take 1 [facility] micronized 5-10 04-18 capsule by it y of 200 mg 00:00: 00:00 mouth [place] capsule 00 :00 daily with Medica l breakfast. Branch ASPIRIN 81 0 Yes TAKE 1 [facility] rs mg EC 5-10 TABLET BY ity of tablet 00:00: MOUTH [place] 00 EVERY DAY Medical Branch ASPIRIN 81 2021-0 Yes TAKE 1 [facility] rs mg EC 5-10 TABLET BY ity of tablet 00:00: MOUTH [place] 00 EVERY DAY Medical Branch ASPIRIN 81 2021-0 Yes TAKE 1 [facility] rs mg EC 5-10 TABLET BY ity of tablet 00:00: MOUTH [place] 00 EVERY DAY Medical Branch ASPIRIN 81 [...] TABLET BY ity of tablet 00:00: MOUTH [place] 00 EVERY DAY Medical Branch ASPIRIN 81 [...] EVERY DAY Medical Branch ASPIRIN 81 2021-0 2021- No TAKE 1 [facility] ers mg EC 5-10 12-08 TABLET BY ity of tablet 00:00: 00:00 MOUTH [place] 00 :00 EVERY DAY Medical Branch OXYBUTYNIN 2021- No [id number] TAKE 1 [facility] XL 5 mg 24 [...] 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 Indication s: chronic pain AMLODIPINE Yes [id number] TAKE 1 [facility] 5 mg tablet 3-03 TABLET BY ity of 00:00: MOUTH [place] 00 EVERY DAY Medical Branch AMLODIPINE 2021-0 Yes [id number] TAKE 1 [facility]ivers 5 mg tablet 3-03 TABLET BY ity of 00:00: MOUTH [place] 00 EVERY DAY Medical Branch AMLODIPINE 2021-0 Yes [id number] TAKE 1 [facility]ivers 5 mg tablet 3-03 TABLET BY ity of 00:00: MOUTH [place] 00 EVERY DAY Medical Branch AMLODIPINE 2021-0 2021- No [id number] TAKE 1 [facility] 5 mg tablet 3-03 -31 TABLET BY it y of 00:00: 00:00 MOUTH [place] 00 :00 EVERY DAY Medical Branch Immunizations Ordered Filled Immunization Date Status Comments [facility] e Immunization Name Name SARS-COV-2 COVID-19 2022-04-03 Completed Unive rsity of Silent Communication JILLIAN-SUCROSE 00:00:00 [place] [facility] VACCINE (VENEGAS TOP) Branch SARS-COV-2 COVID-19 2022-04-03 Completed Unive rsity of PFIZER JILLIAN-SUCROSE 00:00:00 [place] [facility] VACCINE (VENEGAS TOP) Branch SARS-COV-2 COVID-19 2022-04-03 Completed Unive rsity of PFIZER JILLIAN-SUCROSE 00:00:00 [place] [facility] VACCINE (VENEGAS TOP) Branch SARS-COV-2 COVID-19 2022-04-03 Completed Unive rsity of PFIZER JLILIAN-SUCROSE 00:00:00 [place] [facility] VACCINE (VENEGAS TOP) Branch [...] of PFIZER JILLIAN-SUCROSE 00:00:00 [place] [facility] VACCINE (VENEAGS TOP) Branch SARS-COV-2 COVID-19 2022-04-03 Completed Unive [...] Unive rsity of PFIZER VACCINE 00:00:00 [place] [facility] aleksandra Branch SARS-COV-2 COVID-19 2021-01-05 Completed Unive rsity of PFIZER VACCINE 00:00:00 [place] [facility] Branch SARS-COV-2 COVID-19 2021-01-05 Completed Unive rsity of PFIZER VACCINE 00:00:00 [place] [facility] Branch SARS-COV-2 COVID-19 2021-01-05 Completed Unive rsity of PFIZER VACCINE 00:00:00 [place] [facility] Branch SARS-COV-2 COVID-19 2021-01-05 Completed Unive rsity of PFIZER VACCINE 00:00:00 [place] [facility] Branch SARS-COV-2 COVID-19 2021-01-05 Completed Unive rsity of PFIZER VACCINE 00:00:00 [place] [facility] Branch SARS-COV-2 COVID-19 2021-01-05 Completed Unive rsity of PFIZER VACCINE 00:00:00 [place] [facility] Branch SARS-COV-2 COVID-19 2021-01-05 Completed Unive rsity of PFIZER VACCINE 00:00:00 [facility] Branch SARS-COV-2 COVID-19 2021-01-05 Completed Unive rsity of PFIZER VACCINE 00:00:00 [facility] Branch SARS-COV-2 COVID-19 2021-01-05 Completed Unive rsity of PFIZER VACCINE 00:00:00 [facility] Branch SARS-COV-2 COVID-19 2021-01-05 Completed Unive rsity of PFIZER VACCINE 00:00:00 [facility] Branch SARS-COV-2 COVID-19 2021-01-05 Completed Unive rsity of PFIZER VACCINE 00:00:00 [facility] Branch SARS-COV-2 COVID-19 2021-01-05 Completed Unive rsity of PFIZER VACCINE 00:00:00 [facility] Branch SARS-COV-2 COVID-19 2021-01-05 Completed Unive rsity of PFIZER VACCINE 00:00:00 [facility] Branch SARS-COV-2 COVID-19 2021-01-05 Completed Unive rsity of PFIZER VACCINE 00:00:00 [facility] Branch SARS-COV-2 COVID-19 2021-01-05 Completed Unive rsity of PFIZER VACCINE 00:00:00 [facility] Branch SARS-COV-2 COVID-19 2021-01-05 Completed Unive rsity of PFIZER VACCINE 00:00:00 [facility] Branch SARS-COV-2 COVID-19 2021-01-05 Completed Unive rsity of PFIZER VACCINE 00:00:00 [facility] Branch SARS-COV-2 COVID-19 2021-01-05 Completed Unive rsity of PFIZER VACCINE 00:00:00 [facility] Branch SARS-COV-2 COVID-19 2021-01-05 Completed Unive rsity of PFIZER VACCINE 00:00:00 [facility] Branch SARS-COV-2 COVID-19 2021-01-05 Completed Unive rsity of PFIZER VACCINE 00:00:00 [facility] Branch SARS-COV-2 COVID-19 2021-01-05 Completed Unive rsity of PFIZER VACCINE 00:00:00 [facility] Branch SARS-COV-2 COVID-19 2021-01-05 Completed Unive rsity of PFIZER VACCINE 00:00:00 [facility] Branch SARS-COV-2 COVID-19 2021-01-05 Completed Unive rsity of PFIZER VACCINE 00:00:00 [facility] Branch SARS-COV-2 COVID-19 2021-01-05 Completed Unive rsity of PFIZER VACCINE 00:00:00 [facility] Branch SARS-COV-2 COVID-19 2021-01-05 Completed Unive rsity of PFIZER VACCINE 00:00:00 [facility] Branch SARS-COV-2 COVID-19 2021-01-05 Completed Unive rsity of PFIZER VACCINE 00:00:00 [facility] SARS-COV-2 COVID-19 2021-01-05 Completed Unive rsity of PFIZER VACCINE 00:00:00 [facility] SARS-COV-2 COVID-19 2021-01-05 Completed Unive rsity of PFIZER VACCINE 00:00:00 [facility] SARS-COV-2 COVID-19 2021-01-05 Completed Unive rsity of PFIZER VACCINE 00:00:00 [facility] SARS-COV-2 COVID-19 2021-01-05 Completed Unive rsity of PFIZER VACCINE 00:00:00 [facility] SARS-COV-2 COVID-19 2021-01-05 Completed Unive rsity of PFIZER VACCINE 00:00:00 [facility] SARS-COV-2 COVID-19 2021-01-05 Completed Unive rsity of PFIZER VACCINE 00:00:00 [facility] SARS-COV-2 COVID-19 2020-12-15 Completed Unive rsity of PFIZER VACCINE 00:00:00 [facility] SARS-COV-2 COVID-19 2020-12-15 Completed Unive rsity of PFIZER VACCINE 00:00:00 [facility] SARS-COV-2 COVID-19 2020-12-15 Completed Unive rsity of PFIZER VACCINE 00:00:00 [facility] SARS-COV-2 COVID-19 2020-12-15 Completed Unive rsity of PFIZER VACCINE 00:00:00 [facility] SARS-COV-2 COVID-19 2020-12-15 Completed Unive rsity of PFIZER VACCINE 00:00:00 [facility] SARS-COV-2 COVID-19 2020-12-15 Completed Unive rsity of PFIZER VACCINE 00:00:00 [facility] SARS-COV-2 COVID-19 2020-12-15 Completed Unive rsity of PFIZER VACCINE 00:00:00 [facility] SARS-COV-2 COVID-19 2020-12-15 Completed Unive rsity of PFIZER VACCINE 00:00:00 [facility] SARS-COV-2 COVID-19 2020-12-15 Completed Unive rsity of PFIZER VACCINE 00:00:00 [facility] SARS-COV-2 COVID-19 2020-12-15 Completed Unive rsity of PFIZER VACCINE 00:00:00 [facility] SARS-COV-2 COVID-19 2020-12-15 Completed Unive rsity of PFIZER VACCINE 00:00:00 [facility] SARS-COV-2 COVID-19 2020-12-15 Completed Unive rsity of PFIZER VACCINE 00:00:00 [facility] SARS-COV-2 COVID-19 2020-12-15 Completed Unive rsity of PFIZER VACCINE 00:00:00 [facility] SARS-COV-2 COVID-19 2020-12-15 Completed Unive rsity of PFIZER VACCINE 00:00:00 [facility] SARS-COV-2 COVID-19 2020-12-15 Completed Unive rsity of PFIZER VACCINE 00:00:00 [facility] SARS-COV-2 COVID-19 2020-12-15 Completed Unive rsity of PFIZER VACCINE 00:00:00 [facility] SARS-COV-2 COVID-19 2020-12-15 Completed Unive rsity of PFIZER VACCINE 00:00:00 [facility] SARS-COV-2 COVID-19 2020-12-15 Completed Unive rsity of PFIZER VACCINE 00:00:00 [facility] SARS-COV-2 COVID-19 2020-12-15 Completed Unive rsity of PFIZER VACCINE 00:00:00 [facility] SARS-COV-2 COVID-19 2020-12-15 Completed Unive rsity of PFIZER VACCINE 00:00:00 [facility] SARS-COV-2 COVID-19 2020-12-15 Completed Unive rsity of PFIZER VACCINE 00:00:00 [facility] SARS-COV-2 COVID-19 2020-12-15 Completed Unive rsity of PFIZER VACCINE 00:00:00 [facility] SARS-COV-2 COVID-19 2020-12-15 Completed Unive rsity of PFIZER VACCINE 00:00:00 [facility] SARS-COV-2 COVID-19 2020-12-15 Completed Unive rsity of PFIZER VACCINE 00:00:00 [facility] SARS-COV-2 COVID-19 2020-12-15 Completed Unive rsity of PFIZER VACCINE 00:00:00 [facility] SARS-COV-2 COVID-19 2020-12-15 Completed Unive rsity of PFIZER VACCINE 00:00:00 [facility] SARS-COV-2 COVID-19 2020-12-15 Completed Unive rsity of PFIZER VACCINE 00:00:00 [facility] SARS-COV-2 COVID-19 2020-12-15 Completed Unive rsity of PFIZER VACCINE 00:00:00 [facility] SARS-COV-2 COVID-19 2020-12-15 Completed Unive rsity of PFIZER VACCINE 00:00:00 [facility] SARS-COV-2 COVID-19 2020-12-15 Completed [facility]ive rsity of PFIZER VACCINE 00:00:00 [facility] SARS-COV-2 COVID-19 2020-12-15 Completed Unive rsity of PFIZER VACCINE 00:00:00 [facility] SARS-COV-2 COVID-19 2020-12-15 Completed Unive rsity of PFIZER VACCINE 00:00:00 [facility] SARS-COV-2 COVID-19 2020-12-15 Completed Unive rsity of PFIZER VACCINE 00:00:00 [facility] SARS-COV-2 COVID-19 2020-12-15 Completed Unive rsity of PFIZER VACCINE 00:00:00 [facility] Influenza High Dose 2020-08-24 Completed Unive rsity of 00:00:00 [facility] Influenza High Dose 2020-08-24 Completed Unive rsity of 00:00:00 [facility] Influenza High Dose 2020-08-24 Completed Unive rsity of 00:00:00 [facility] Influenza High Dose 2020-08-24 Completed [facility]ive [facility]ity of 00:00:00 [facility] Influenza High Dose 2020-08-24 Completed Unive rsity of 00:00:00 [facility] Influenza High Dose 2020-08-24 Completed Unive rsity of 00:00:00 [facility] Influenza High Dose 2020-08-24 Completed Unive rsity of 00:00:00 [facility] Influenza High Dose 2020-08-24 Completed Unive rsity of 00:00:00 [facility] Influenza High Dose 2020-08-24 Completed Unive rsity of 00:00:00 [facility] Influenza High Dose 2020-08-24 Completed Unive rsity of 00:00:00 [facility] Influenza High Dose 2020-08-24 Completed Unive rsity of 00:00:00 [facility] Influenza High Dose 2020-08-24 Completed Unive rsity of 00:00:00 [facility] Influenza High Dose 2020-08-24 Completed Unive rsity of 00:00:00 [facility] Influenza High Dose 2020-08-24 Completed Unive rsity of 00:00:00 [facility] Influenza High Dose 2020-08-24 Completed Unive rsity of 00:00:00 [facility] Influenza High Dose 2020-08-24 Completed Unive rsity of 00:00:00 [facility] Influenza High Dose 2020-08-24 Completed Unive rsity of 00:00:00 [facility] Influenza High Dose 2020-08-24 Completed Unive rsity of 00:00:00 [facility] Influenza High Dose 2020-08-24 Completed Unive rsity of 00:00:00 [facility] Influenza High Dose 2020-08-24 Completed Unive rsity of 00:00:00 [facility] Influenza High Dose 2020-08-24 Completed Unive rsity of 00:00:00 [facility] Influenza High Dose 2020-08-24 Completed Unive rsity of 00:00:00 [facility] Influenza High Dose 2020-08-24 Completed Unive rsity of 00:00:00 [facility] Influenza High Dose 2020-08-24 Completed Unive rsity of 00:00:00 [facility] Influenza High Dose 2020-08-24 Completed Unive rsity of 00:00:00 [facility] Influenza High Dose 2020-08-24 Completed Unive rsity of 00:00:00 [facility] Influenza High Dose 2020-08-24 Completed Unive rsity of 00:00:00 [facility] Influenza High Dose 2020-08-24 Completed Unive rsity of 00:00:00 [facility] Influenza High Dose 2020-08-24 Completed Unive rsity of 00:00:00 [facility] Influenza High Dose 2020-08-24 Completed Unive rsity of 00:00:00 [facility] Influenza High Dose 2020-08-24 Completed Unive rsity of 00:00:00 [facility] Influenza High Dose 2020-08-24 Completed Unive rsity of 00:00:00 [facility] Influenza High Dose 2020-08-24 Completed Unive rsity of 00:00:00 [facility] Influenza High Dose 2020-08-24 Completed Unive rsity of 00:00:00 [facility] Vital Signs Vital Name Observation Time Observation Value Comments Source Systolic blood 2022-11-03 128 mm[Hg] University of pressure 13:49:00 [facility] Diastolic blood 2022-11-03 69 mm[Hg] University o f pressure 13:49:00 [facility] Heart rate 2022-11-03 80 /min [facility] 13:49:00 [facility] Body temperature 2022-11-03 36.11 [place] of 13:49:00 [facility] Respiratory rate 2022-11-03 18 /min [facility] 13:49:00 [facility] Oxygen saturation 2022-11-03 97 /min [facility] Arterial blood 13:49:00 [facility] Pulse oximetry [place] Body weight 2022-11-03 72.984 kg University of 09:51:00 [facility] BMI 2022-11-03 27.62 kg/m2 University of 09:51:00 [facility] Body height 2022-10-31 162.6 cm University of 22:07:00 [facility] Systolic blood 2022-10-30 171 mm[Hg] University of pressure 15:01:00 [facility] Diastolic blood 2022-10-30 83 mm[Hg] University o f pressure 15:01:00 [facility] Heart rate 2022-10-30 96 /min University of 15:00:00 [facility] Body temperature 2022-10-30 37.22 [place] University of 15:00:00 [facility] Body height 2022-10-30 162.6 cm University of 15:00:00 [facility] Body weight 2022-10-30 68.539 kg University of 15:00:00 [facility] BMI 2022-10-30 25.94 kg/m2 University of 15:00:00 [facility] Oxygen saturation 2022-10-30 94 /min University of in Arterial blood 15:00:00 [place] [facility] by Pulse oximetry [facility] Heart rate 2022-07-17 65 /min University of 16:15:00 [facility] Respiratory rate 2022-07-17 18 /min University of 16:15:00 [facility] Oxygen saturation 2022-07-17 99 /min University of in Arterial blood 16:15:00 [place] [facility] by Pulse oximetry Branch Systolic blood 2022-07-17 196 mm[Hg] University of pressure 16:10:00 [facility] Diastolic blood 2022-07-17 63 mm[Hg] University o f pressure 16:10:00 [facility] Body temperature 2022-07-17 36.5 [place] University of 15:55:00 [facility] Body height 2022-07-17 162.6 cm University of 14:21:00 [facility] Body weight 2022-07-17 66.1 kg University of 14:21:00 [facility] BMI 2022-07-17 25.01 kg/m2 University of 14:21:00 [facility] Respiratory rate 2022-07-17 18 /min University of 15:52:00 [facility] Body height 2022-07-17 162.6 cm University of 14:21:00 [facility] Body weight 2022-07-17 66.1 kg University of 14:21:00 [facility] BMI 2022-07-17 25.01 kg/m2 University of 14:21:00 [facility] Systolic blood 2022-07-17 181 mm[Hg] University of pressure 14:00:00 [facility] Diastolic blood 2022-07-17 71 mm[Hg] University o f pressure 14:00:00 [facility] Heart rate 2022-07-17 71 /min University of 14:00:00 [facility] Body temperature 2022-07-17 37.06 [place] University of 13:53:00 [facility] Respiratory rate 2022-07-17 18 /min University of 13:53:00 [facility] Oxygen saturation 2022-07-17 99 /min University of in Arterial blood 13:53:00 [place] [facility] by Pulse oximetry Branch Systolic blood 2022-04-17 160 mm[Hg] Pt denies any University o f pressure 19:19:00 chest pain [facility] Diastolic blood 2022-04-17 75 mm[Hg] Pt denies any University of pressure 19:19:00 chest pain [facility] Heart rate 2022-04-17 64 /min :03:00 [facility] Body temperature 2022-04-17 36.06 [place] [facility] 19:03:00 [facility] Respiratory rate 2022-04-17 18 /min [facility] 19:03:00 [facility] Body height 2022-04-17 162.6 cm University 19:03:00 [facility] Body weight 2022-04-17 66.134 kg University :03:00 [facility] BMI 2022-04-17 25.03 kg/m2 University :03:00 [facility] Oxygen saturation 2022-04-17 99 /min [facility] in Arterial blood 19:03:00 [facility] Pulse oximetry Branch Procedures Procedure Date / Time Performing Source Performed Clinician POCT GLUCOSE (AUTOMATED) 2022-11-03 Chris Tillman [facility] 13:50:[address] [facility] BASIC METABOLIC PANEL (NA, K, 2022-11-03 Jerrica Carranza [facility] CL, CO2, GLUCOSE, BUN, 10:35:00 Medical [place] CREATININE, CA) CBC WITH DIFF 2022-11-03 [facility] 10:35[facility] [facility] POCT GLUCOSE (AUTOMATED) 2022-11-02 Chris Tillman [facility] 22:42:00 Medical [place] POCT GLUCOSE (AUTOMATED) 2022-11-02 Chris Tillman [facility] 17:50:00 Medical [place] POCT GLUCOSE (AUTOMATED) 2022-11-02 Chris Tillman [facility] 14:14:[address] [facility] BASIC METABOLIC PANEL (NA, K, 2022-11-02 Jerrica Carranza [facility] CL, CO2, GLUCOSE, BUN, 09:47:00 Medical B ran CREATININE, CA) CBC WITH DIFF 2022-11-02 [place] [facility] 09:47[facility] POCT GLUCOSE (AUTOMATED) 2022-11-01 Chris Tillman [facility] 22:47:00 Medical Branch POCT GLUCOSE (AUTOMATED) 2022-11-01 Chris Tillman [facility] 17:54:00 Medical Branch POCT GLUCOSE (AUTOMATED) 2022-11-01 Chris Tillman [facility] 13:58:00 Medical Branch MAGNESIUM 2022-11-01 [facility] xa 10:50:00 Medical [facility] BASIC METABOLIC PANEL (NA, K, 2022-11-01 Jerrica Carranza [facility] CL, CO2, GLUCOSE, BUN, 10:50:00 [facility] [place] CREATININE, CA) CBC WITH DIFF 2022-11-01 Jerrica Carranza [facility] 10:50:00 Medical Branch VITAMIN B12, LEVEL 2022-11-01 [facility] 03:08:00 Medical Branch FOLATE 2022-11-01 [facility] xa 03:08:00 Medical [facility] MAGNESIUM 2022-11-01 [facility] xa 02:34:00 Medical Branch FERRITIN SERUM 2022-11-01 [facility] xa 02:34:00 Medical [place] IRON 2022-11-01 [facility] 02:34:00 Medical Branch TOTAL IRON BINDING CAPACITY 2022-11-01 [facility] 02:34:00 Medical Branch BASIC METABOLIC PANEL (NA, K, 2022-11-01 [facility] CL, CO2, GLUCOSE, BUN, 02:34:00 Medical [place] CREATININE, CA) CT ABDOMEN PELVIS WO CONTRAST 2022-10-31 Chris Tillman [facility] 18:20:19 Medical Branch URINALYSIS 2022-10-31 Chris Tillman [facility] xa 16:47:00 Medical Branch URINE CULTURE 2022-10-31 Chris Tillman [facility] 16:47:00 Medical Branch MAGNESIUM 2022-10-31 [facility] xa 16:24:00 Medical Branch COMP. METABOLIC PANEL ([id number]) 2022-10-31 Chris Tillman [facility] 16:24:[address] [facility] LIPID PANEL ([id number])(TOTAL 2022-10-31 Jerrica Carranza [facility] CHOLESTEROL, TRIGLYCERIDES, 16:24:00 [facility] HDL) CBC WITH DIFF 2022-10-31 Chris Tillman [facility] 16:24:[address] [facility] GLYCOSYLATED HEMOGLOBIN (A1C) 2022-10-31 Jerrica Carranza [facility] 16:24:[address] [facility] EKG-12 LEAD 2022-10-31 Chris Tillman [facility] 16:03:[address] [facility] CONSENT/REFUSAL FOR DIAGNOSIS 2022-10-31 Doctor Unassigned, [facility] AND TREATMENT 15:55:[address] [place] [facility] PHACOEMULSIFICATION OF 2022-07-17 Vince Lopez [facility] CATARACT WITH INTRAOCULAR 15:16:00 [facility] LENS IMPLANT POCT GLUCOSE (AUTOMATED) 2022-07-17 Vince Lopez [facility] 13:59:[address] [facility] POCT GLUCOSE (AUTOMATED) 2022-07-17 Vince Lpoez [facility] 13:59:[address] [facility] ASSIGNMENT OF BENEFITS 2022-07-15 Doctor Unassigned, [facility] 17:44:[address] [place] [facility] URINALYSIS 2022-04-17 [facility] [place] 20:40:[address] [facility] POCT URINALYSIS AUTO 2022-04-17 [facility] [place] [facility] 00:00:[address] [facility] Encounters Start End Encounter Admission Attending Care Care Encounter Source Date/Time Date/Time Type Type Clinicians Facility Department ID 2021-09-24 Outpatient Chris LOPEZ [facility] OPH [id number] Univers 17:46:08 VINCE [facility] 2021-09-21 Emergency [facility] [id number] Univers 14:52:11 [facility] 2022-12-02 2022-12-02 Outpatient Chris SERRATO [facility] [id number] Univers 13:00:00 13:00:00 ROGER [facility] 2022-11-28 2022-11-28 Outpatient R DOMINIQUE [facility] [id number] Univers 11:00:00 11:00:00 QIANGJUN ity o f [facility] 2022-11-11 2022-11-11 [facility]phone [facility] [id number] Univers 00:00:00 00:00:00 [facility] [id number] it y of [facility] [id number] Denis as RAF?BLEA [id number] [address] OFFICE [facility] 2022-11-11 2022-11-11 Refill [facility] [id number] Univers 00:00:00 00:00:00 [facility] [id number] it y [facility] [id number] Denis as RAF?BLEA [id number] [address] 2022-11-05 2022-11-05 Transition ALESSANDRA [place] [id number] Univers 00:00:00 00:00:00 of Care Man MOYER [id number] [id number] [id number] [facility] [address] [place] 2022-11-05 2022-11-05 Telephone [facility] [id number] Univers 00:00:00 00:00:00 Roger BELTRAN [id number] i ty of [id number] [id number] [address] 2022-10-31 2022-11-03 Inpatient X DANA [facility] [id number] Univers 09:59:00 13:08:00 CHRIS itvanessa of [facility] 2022-10-31 2022-11-03 [facility] Chris Tillman [facility] [id number] Univers 09:59:00 13:08:00 Encounter Tish Bennett [id number] [id number] [id number] [address] 2022-10-30 2022-10-30 [employer] [facility], Ang - Db [facility] 1.2.840.1 [id number] Univers 09:30:00 09:45:00 Visit Roger Serrato [id number] ity of [place] [id number] Denis as RAF?BLEA [id number] [facility] [address] [place] MEDICAL OFFICE [facility] 2022-10-30 2022-10-30 Outpatient [facility] [id number] Univers 09:30:00 09:30:00 ROGER vanessa [facility] 2022-10-30 2022-10-30 Office [facility] [id number] Univers 09:00:00 09:30:00 Visit [facility] [id number] it y of [place] [id number] Denis as RAF?BLEA [phone] [address] OFFICE [facility] 2022-10-30 2022-10-30 Refill [facility] [id number] Univers 00:00:00 00:00:00 Roger HEALTH [id number] it y of [place] [id number] Denis as RAF?BLEA [id number] [facility] 044 [facility] 2022-10-28 2022-10-28 Outpatient R [facility] [id number] Univers 09:00:00 09:00:00 ROGER [facility] 2022-10-14 2022-10-14 Telephone [facility] [id number] Univers 00:00:00 00:00:00 [facility] [id number] it y of [place] [id number] Denis as RAF?BLEA [id number] [address] OFFICE [facility] 2022-10-11 2022-10-11 [facility]ill [facility] [id number] Univers 00:00:00 00:00:00 Roger HEALTH [id number] it y of [place] [id number] Denis as RAF?BLEA [id number] [address] 2022-09-24 2022-09-24 Outpatient R RITO [facility] [id number] Univers 14:30:00 14:30:00 EFFIEFRANK oconnor [facility] 2022-09-23 2022-09-23 Outpatient R AMA [facility] [id number] Univers 12:15:00 12:15:00 ROGER roseannevanessa [facility] 2022-09-23 2022-09-23 Telephone [facility] [id number] Univers 00:00:00 00:00:00 [facility] [id number] it y of [facility] [id number] Denis as RAF?BLEA [id number] [address] 2022-08-19 2022-08-19 Refalejo [facility] [id number] Univers 00:00:00 00:00:00 [facility] [id number] it y of [place] [id number] Denis as RAF?BLEA [id number] [address] 2022-08-17 2022-08-17 Laney [facility] [id number] Univers 00:00:00 00:00:00 Queenie [facility] [id number] ity of [id number] [id number] [address] 2022-07-29 2022-07-29 Laney [facility] [id number] Univers 00:00:00 00:00:00 [facility] [id number] it y of [facility] [id number] Denis as RAF?BLEA [id number] [address] 2022-07-29 2022-07-29 Refalejo [facility] [id number] Univers 00:00:00 00:00:00 Queenie BELTRAN [id number] ity of [id number] [id number] Id dical NAL 204 [facility] 2022-07-17 2022-07-17 Outpatient R [facility] OPH [id number] Univers 08:35:00 11:43:00 VINCE ity [facility] 2022-07-17 2022-07-17 Hospital [facility] [id number] Univers 08:35:00 11:43:00 Encounter Vince BELTRAN [id number] [id number] SUR[place]ICAL [id number] [facility] [address] [place] 2022-07-17 2022-07-17 Anesthesia Abdiel Martínez [facility] 1.2.840.11 [id number] Univers 10:21:00 10:58:00 Event Michael Lema 35 [id number] ity of [id number] [id number] [facility] [address] [place] 2022-07-17 2022-07-17 Surgery [facility] [id number] Univers 09:32:00 10:06:00 Vince BELTRAN [id number] [place] of [id number] [id number] [facility] [address] [place] 2022-07-15 2022-07-15 [employer] Elizabeth, Britney Lab Main [facility] [id number] Univers 13:45:00 14:00:00 Visit Vince Lopez 350.1.13.1 0 [place] of [id number] [id number] Id dical NAL 353 [facility] 2022-07-15 2022-07-15 Outpatient R [facility] [id number] Univers 13:45:00 13:45:00 VINCE ity [facility] 2022-07-15 2022-07-15 Orders Doctor AWAIS 1.2.840.114 [id number] Univers 00:00:00 00:00:00 Only Unassigned, ELVIA 350.1.13.10 [facility] 4.2.7.2.686 Denis as [phone] [address] 2022-07-15 2022-07-15 [facility] 1.2.840.114 [id number] Univers 00:00:00 00:00:00 [facility] 350.1.13.10 it y of [place] 4.2.7.2.686 Denis as RAF?BLEA [phone] [address] OFFICE [facility] 2022-07-01 2022-07-01 Laney [facility] 1.2.840.114 [id number] Univers 00:00:00 00:00:00 [facility] 350.1.13.10 it y of [place] 4.2.7.2.686 Denis as RAF?BLEA [phone] [address] OFFICE [facility] 2022-07-01 2022-07-01 Laney [facility] 1.2.840.114 [id number] Univers 00:00:00 00:00:00 Queenie BELTRAN 350.1.13.10 ity of [place].2.[place] [phone] [address] 2022-06-12 2022-06-12 Outpatient Crhis ARREDONDO [facility] [id number] Univers 11:30:00 11:30:00 QUEENIE oconnor o f [facility] 2022-06-11 2022-06-11 Laney [facility] 1.2.840.114 [id number] Univers 00:00:00 00:00:00 [facility] 350.1.13.10 it y of [place] 4.2.7.2.686 Denis as RAF?BLEA [phone] [address] OFFICE [facility] 2022-05-29 2022-05-29 Outpatient Chris ARREDONDO [facility] [id number] Univers 13:30:00 13:30:00 QUEENIE oconnor o f [facility] 2022-05-13 2022-05-13 [facility] 1.2.840.114 [id number] Univers 00:00:00 00:00:00 Roger HEALTH 350.1.13.10 it y of [place] 4.2.7.2.686 Denis as RAF?BLEA [id number] [address] OFFICE [facility] 2022-04-23 2022-04-23 [facility] 1.2.840.114 [id number] Univers 00:00:00 00:00:00 Roger HEALTH 350.1.13.10 it y of [place] 4.2.7.2.686 Denis as RAF?BLEA [phone] [address] 2022-04-23 2022-04-23 Telephone Arredondo, [facility] 1.2.840.114 [id number] Univers 00:00:00 00:00:00 Queenie [place] 350.1.13.10 ity of [place].7.2.[place] [id number] [address] 2022-04-23 2022-04-23 [facility] 1.2.840.114 [id number] Univers 00:00:00 00:00:00 Roger HEALTH 350.1.13.10 it y of [place] 4.2.7.2.686 Denis as RAF?BLEA [id number] [address] OFFICE [facility] 2022-04-17 2022-04-17 Outpatient [facility] [id number] Univers 14:00:00 14:45:45 QUEENIE roseannevanessa o f [facility] 2022-04-17 2022-04-17 Office Arredondo, [facility] 1.2.840.114 [id number] Univers 14:00:00 14:45:45 [facility] 350.1.13.10 ity of [place] 4.2.7[place]2.[place] [phone] Id dical NAL 204 [facility] 2022-04-17 2022-04-17 Outpatient Chris ARREDONDO [facility] [id number] Univers 14:00:00 14:00:00 QUEENIE oconnor o f [facility] 2022-04-03 2022-04-03 Imm/Inj Vaccine, Adc Family Medicine [facility] 1.2.840.114 [id number] Univers 16:00:00 16:10:00 Visit Roger Serrato 350.1.13.10 ity nate [facility] 4.[place] [phone] Id dical NAL [address] [place] [address] 2022-04-03 2022-04-03 Outpatient Chris AMA [facility] [id number] Univers 16:00:00 16:00:00 [facility] 2022-04-03 2022-04-03 Office [facility] 1..840.114 [id number] Univers 13:15:00 13:30:00 Visit [facility] 350.1.13.10 it y [facility] 4.2.7.2.686 Denis as RAF?BLEA [phone] [address] OFFICE [facility] 2022-04-03 2022-04-03 Outpatient Chris SERRATO [facility] [id number] Univers 13:15:00 13:15:00 ROGER [facility] 2022-04-03 2022-04-03 Outpatient Chris AMA [facility] [id number] Univers 13:15:00 13:15:00 [facility] 2022-04-02 2022-04-02 Refill [facility] 1.2.840.114 [id number] Univers 00:00:00 00:00:00 [place] [address].1.13.10 it y of [facility] 4.2.7.2.686 Denis as RAF?BLEA [phone] [address] OFFICE [facility] 2022-03-26 2022-03-26 Refalejo [facility] 1..840.114 [id number] Univers 00:00:00 00:00:00 Roger HEALTH 350.1.13.10 it y of [place] 4.2.7.2.686 Denis as RAF?BLEA [id number] [address] OFFICE [facility] 2022-03-25 2022-03-25 [facility] 1.2.840.114 [id number] Univers 00:00:00 00:00:00 Roger HEALTH 350.1.13.10 it y of [place] 4.2.7.2.686 Denis as RAF?BLEA [id number] [address] OFFICE [facility] 2022-03-23 2022-03-23 [facility] 1.2.840.114 [id number] Univers 00:00:00 00:00:00 Roger HEALTH 350.1.13.10 it y of [place] 4.2.7.2.686 Denis as RAF?BLEA [phone] [address] 2022-03-13 2022-03-13 Outpatient [facility] [id number] Univers 13:45:00 13:45:00 ROGER ity [facility] 2022-02-20 2022-02-20 [facility] 1.2.840.114 [id number] Univers 00:00:00 00:00:00 Roger HEALTH 350.1.13.10 it y of [place] 4.2.7.2.686 Denis as RAF?BLEA [phone] [address] OFFICE [facility] 2022-02-19 2022-02-19 [facility] 1.2.840.114 [id number] Univers 00:00:00 00:00:00 Roger HEALTH 350.1.13.10 it y of [place] 4.2.7.2.686 Denis as RAF?BLEA [phone] [address] 2021-12-27 2021-12-27 [facility] 1.2.840.114 [id number] Univers 00:00:00 00:00:00 Roger [facility]ALTH 350.1.13.10 it y of [place] 4.2.7.2.686 Denis as RAF?BLEA [phone] Id sandip STODDARD [address] [place] [address] OFFICE [facility] 2021-12-26 2021-12-26 Telephone [facility] 1.2.953.463 [id number] Univers 00:00:00 00:00:00 Roger HEALTH 350.1.13.10 it y of [place] 4.2.7.2.686 Denis as RAF?BLEA [phone] Id saturninoct MATIAS[address] OFFICE [facility] 2021-12-18 2021-12-18 [facility] 1.2.840.114 [id number] Univers 00:00:00 00:00:00 Roger HEALTH 350.1.13.10 it y of [place] 4.2.7.2.686 Denis as RAF?BLEA [phone] Id saturninoct MATIAS[address] OFFICE [facility] 2021-11-20 2021-11-20 [facility] 1.2.444.004 [id number] Univers 00:00:00 00:00:00 Roger HEALTH 350.1.13.10 it y of [place] 4.2.7.2.686 Denis as RAF?BLEA [phone] [facility] MATIAS[address] OFFICE [facility] 2021-10-22 2021-10-22 [facility] 1.2.269.035 [id number] Univers 00:00:00 00:00:00 Roger [facility] 350.1.13.10 it y of [place] 4.2.7.2.686 Denis as RAF?BLEA [phone] Id saturninoct MATIAS[address] OFFICE [facility] 2021-10-01 2021-10-01 [facility] 1.2.840.114 [id number] Univers 00:00:00 00:00:00 Roger [facility]ALTH 350.1.13.10 it y of [place] 4.2.7.2.686 Denis as RAF?BLEA [phone] [facility] MATIAS[address] OFFICE [facility] 2021-09-27 2021-09-27 [facility] 1.2.840.114 [id number] Univers 00:00:00 00:00:00 Roger HEALTH 350.1.13.10 it y of [facility] 4.2.7.2.686 Denis as RAF?BLEA [id number] [address] MEDICAL OFFICE [facility] 2021-09-26 2021-09-26 Outpatient R SERRATO [facility] [id number] Univers 14:00:00 14:05:04 ROGER oconnor [facility] 2021-09-26 2021-09-26 Outpatient R ESRRATO [facility] [id number] Univers 14:00:00 14:00:00 ROGER oconnor [facility] 2021-09-26 2021-09-26 Office [facility] 1.2.840.114 [id number] Univers 13:26:07 13:41:07 Visit [facility] 350.1.13.10 it y of [place] 4.2.7.2.686 Denis as RAF?BLEA [phone] [address] 2021-09-19 2021-09-19 Outpatient R SERRATO [facility] [id number] Univers 13:15:00 13:15:00 ROGER vanessa [facility] 2021-09-19 2021-09-19 Refill [facility] 1.2.840.114 [id number] Univers 00:00:00 00:00:00 [facility] 350.1.13.10 it y of [place] 4.2.7.2.686 Denis as Raf?Blea [phone] [address] Office [facility] 2021-09-07 2021-09-07 Orders Doctor AWAIS 1.2.840.114 [id number] Univers 00:00:00 00:00:00 Only Unassigned, ELVIA 350.1.13.10 ity of [place] [facility] 4.2.7.2.686 Denis as [id number] [address] 2021-08-20 2021-08-20 Telephone [facility] 1.2.804.871 [id number] Univers 00:00:00 00:00:00 [facility] 350.1.13.10 it y of [place] 4.2.7.2.686 Denis as Raf?Blea [phone] Id saturninoct richi [address] [place] [address] Medical Office Building 2021-08-12 2021-08-12 [facility]ill [facility] 1.2.840.114 [id number] Univers 00:00:00 00:00:00 [facility] 350.1.13.10 it y of [place] 4.2.7.2.686 Denis as Professio [phone] [address] Office Building One 2021-07-25 2021-07-25 Hospital [facility] 1.2.924.799 [id number] Univers 06:36:00 09:28:00 Encounter Vince Pope Tamara 350.1.13.10 ity of [place] [phone] [facility] [address] 2021-07-25 2021-07-25 Surgery [facility] 1.2.840.114 [id number] Univers 07:30:00 08:11:00 Vince Beltran 350.1.13.10 it[place] [phone] [facility] [address] 2021-07-24 2021-07-24 Laboratory Only, Adc Test [facility] 1.2.840. 114 [id number] Univers 10:16:59 10:31:59 Only Vince Lopez 350.1.13.1 0 ity of [place] [phone] [facility] [address] 2021-07-24 2021-07-24 Outpatient R JOHN [facility] [id number] Univers 10:15:00 10:15:00 VINCE ity of [facility] 2021-07-23 2021-07-23 Telephone [facility] 1.2.186.101 [id number] Univers 00:00:00 00:00:00 [facility] 350.1.13.10 it y of [place] 4.2.7.2.686 Denis as Raf?Blea [phone] Me dical kn[address] Office Building 2021-07-20 2021-07-20 [employer] Architect Elizabeth, Adc Lab Main [facility] 1.2.8 40.114 [id number] Univers 12:50:28 13:05:28 Visit John Vince Pope Tamara 350.1.13.1 0 ity of [place].2.[place] [phone] Id sandip burns 353 [facility] 2021-07-20 2021-07-20 Outpatient Chris LOPEZ [facility] [id number] Univers 13:00:00 13:00:00 VINCE oconnor [facility] 2021-07-20 2021-07-20 Orders Doctor AWAIS 1.2.840.114 [id number] Univers 00:00:00 00:00:00 Only Unassigned, ELVIA 350.1.13.10 ity of [place] [facility] 4.2.7.2.686 Denis as [phone] [address] 2021-07-18 2021-07-18 Office [facility] 1.2.840.114 [id number] Univers 13:32:13 13:47:13 Visit [facility] 350.1.13.10 it y of [place] 4.2.7.2.686 Denis as Raf?Blea [phone] Id sandip stoddard [address] [facility] 2021-07-18 2021-07-18 Outpatient [facility] [id number] Univers 13:30:00 13:30:00 ROGER oconnor [facility] 2021-06-06 2021-06-06 Orders Doctor ERNANDEZ 1.2.840.114 [id number] Univers 00:00:00 00:00:00 Only Unassigned, ELVIA 350.1.13.10 ity of [place] [facility] 4.2.7.2.686 Denis as [phone] [address] 2021-03-21 2021-03-21 Outpatient [facility] [id number] Univers 13:00:00 13:00:00 ROGER oconnor [facility] 2021-01-05 2021-01-05 Outpatient Chris CONNER [facility] [id number] Univers 12:30:00 12:30:00 CHRISTINE [facility] 2020-12-20 2020-12-20 Outpatient Chris SERRATO [facility] [id number] Univers 13:00:00 13:00:00 ROGER vanessa [facility] 2020-12-15 2020-12-15 Outpatient Chris CONNER [facility] [id number] Univers 12:30:00 12:30:00 CHRISTINE [facility] 2020-12-07 2020-12-07 Outpatient [facility] [id number] Univers 14:10:00 14:10:00 [facility] 2020-11-08 2020-11-08 Outpatient Chris SERRATO [facility] [id number] Univers 14:15:00 14:15:00 [facility] 2020-10-26 2020-10-26 Outpatient R [facility] [id number] Univers 13:00:00 13:00:00 [facility] 2020-08-29 2020-08-29 Outpatient Chris SERRATO [facility] [id number] Univers 10:00:00 10:00:00 [facility] 2020-04-24 2020-04-24 Outpatient Chris PADILLA [facility] [id number] Univers 15:00:00 15:00:00 SENDIL [facility] 2020-03-13 2020-03-13 Outpatient [facility] [id number] Univers 10:00:00 10:00:00 [facility] 2020-03-01 2020-03-01 Outpatient Chris SERRATO, [facility] [id number] Univers 13:15:00 13:15:00 [facility] 2019-12-01 2019-12-01 Emergency X HOBBS, [facility] ERT [id number] Univers 17:26:13 21:43:00 NICOLETTE [facility] Results Test Description Test Time Test Comments Results Result Comments Source POCT GLUCOSE (AUTOMATED) 2022-11-03 15:19:59 Test Item Value Reference Range Interpretation Comme nts POCT GLU (test code = 7555158030) 79 mg/dL 70-110 Lab Interpretation (test code = 15967-2) Normal [facility] GLUCOSE (AUTOMATED)2022-11-02 22:46:18 Test Item Value Reference Range Interpretation Comments POCT GLU (test code = 8162404504) 122 mg/dL 70-110 H Lab Interpretation (test code = Abnormal 01415-1) [facility] GLUCOSE (AUTOMATED)2022-11-02 18:01:09 Test Item Value Reference Range Interpretation Comments POCT GLU (test code = 8525376802) 125 mg/dL 70-110 H Lab Interpretation (test code = Abnormal 92779-6) [facility] GLUCOSE (AUTOMATED)2022-11-02 14:36:18 Test Item Value Reference Range Interpretation Comments POCT GLU (test code = 0440006857) 79 mg/dL 70-110 Lab Interpretation (test code = Normal 39098-3) [facility] METABOLIC PANEL (NA, K, CL, CO2, GLUCOSE, BUN, CREATININE, CA)2022-11-02 10:44:48 Test Item Value Reference Range Interpretation Comments NA (test code = 138 mmol/L 135-145 0849035541) K (test code = 3.8 mmol/L 3.5-5.0 9804417119) CL (test code = 110 mmol/L 98-108 H 1828661562) CO2 TOTAL (test code = 25 mmol/L 23-31 1449738628) AGAP (test code = 2-16 8582251694) BUN (test code = 17 mg/dL 7-23 8091699267) GLUCOSE (test code = 113 mg/dL 70-110 H 4986033774) CREATININE (test code = 1.12 mg/dL 0.50-1.04 H 8685153870) CALCIUM (test code = 7.9 mg/dL 8.6-10.6 L 8119334810) eGFR (test code = mL/min/1.73m2 8900868226) BONY (test code = BONY) Association of Glomerular Filtration Rate (GFR) and Staging of Kidney Disease* + --+ --+ ------+| GFR (mL/min/1.73 m2) ?| With Kidney Damage ?| ?Without Kidney Damage+ --------+ --------+ +| ?>90 ?| ?Stage one ?| ? Normal ?+ ---+ ---+ -------+| ?60-89 ?| ?Stage two ?| ? Decreased GFR ? + --+ --+ ------+| ?30-59 ?| ?Stage three ?| ? Stage three ? + --+ --+ ------+| ?15-29 ?| ?Stage four ? | ? Stage four ?+ ---+ ---+ -------+| ?<15 (or dialysis) ? ?| ?Stage five ? | ? Stage five ?+ ---+ ---+ -------+ *Each stage assumes the associated GFR level has been in effect for at least three months. ?Stages 1 to 5, with or without kidney disease, indicate chronic kidney disease. Notes: Determination of stages one and two (with eGFR >59mL/min/1.73 m2) requires estimation of kidney damage for at least three months as defined by structural or functional abnormalities of the kidney, manifested by either:Pathological abnormalities or Markers of kidney damage (including abnormalities in the composition of the blood or urine or abnormalities in imaging tests). Lab Interpretation Abnormal (test code = 55928-1) [facility] WITH [id number] 10:20:28 Test Item Value Reference Range Interpretation Comments WBC (test code = See_Comment [Automated 0190-2) message] The sy stem which generated this result transmitted reference range : 4.30 - 11.10 10*3/?L. The reference range was not used to interpret this result as normal/abnormal . RBC (test code = See_Comment L [Automated 839-8) message] The sy stem which generated this result transmitted reference range : 3.93 - 5.25 10*6/?L. The reference range was not used to interpret this result as normal/abnormal . HGB (test code = 7.7 g/dL 11.6-15.0 L 718-7) HCT (test code = 23.2 % 35.7-45.2 L 4544-3) MCV (test code = 92.4 fL 80.6-95.5 787-2) MCH (test code = 30.7 pg 25.9-32.8 785-6) MCHC (test code = 33.2 g/dL 31.6-35.1 786-4) RDW-SD (test code = 53.6 fL 39.0-49.9 H 81415-4) RDW-CV (test code = 15.9 % 12.0-15.5 H 788-0) PLT (test code = See_Comment [Automated 777-3) message] The sy stem which generated this result transmitted reference range : 166 - 358 10*3/ ?L. The reference r randy was not used to interpret this result as normal/abnormal . MPV (test code = 11.4 fL 9.5-12.9 70951-7) NRBC/100 WBC (test See_Comment [Automat ed code = 9033087955) message] The system which generated this result transmitted reference range : 0.0 - 10.0 /100 WBCs. The refer ence range was not u sed to interpret th is result as normal/abnormal . NRBC x10^3 (test code See_Comment [Auto mated = 0062457196) message] The s ystem which generated this result transmitted reference range : 10*3/?L. The reference range was not used to interpret this result as normal/abnormal . GRAN MAT (NEUT) % 55.4 % (test code = 770-8) IMM GRAN % (test code 1.00 % = 8146704399) LYMPH % (test code = 29.2 % 736-9) MONO % (test code = 9.6 % 5905-5) EOS % (test code = 4.0 % 713-8) BASO % (test code = 0.8 % 706-2) GRAN MAT x10^3(ANC) 3.37 10*3/uL 1.88-7.09 (test code = 6238748096) IMM GRAN x10^3 (test 0.06 10*3/uL 0.00-0.06 code = 5160182571) LYMPH x10^3 (test code 1.77 10*3/uL 1.32-3.29 = 731-0) MONO x10^3 (test code 0.58 10*3/uL 0.33-0.92 = 742-7) EOS x10^3 (test code = 0.24 10*3/uL 0.03-0.39 711-2) BASO x10^3 (test code 0.05 10*3/uL 0.01-0.07 = 704-7) Lab Interpretation Abnormal (test code = 11960-3) [facility] GLUCOSE (AUTOMATED)2022-11-01 22:51:07 Test Item Value Reference Range Interpretation Comments POCT GLU (test code = 9502047652) 107 mg/dL 70-110 Lab Interpretation (test code = Normal 02601-7) [facility] GLUCOSE (AUTOMATED)2022-11-01 18:04:33 Test Item Value Reference Range Interpretation Comments POCT GLU (test code = 7723025563) 148 mg/dL 70-110 H Lab Interpretation (test code = Abnormal 72338-0) [facility] GLUCOSE (AUTOMATED)2022-11-01 14:03:41 Test Item Value Reference Range Interpretation Comments POCT GLU (test code = 0884386266) 75 mg/dL 70-110 Lab Interpretation (test code = Normal 11417-3) [facility] 03:13:45 Test Item Value Reference Range Interpretation Comments MAGNESIUM (test code = 4993594530) 0.7 mg/dL 1.7-2.4 L Lab Interpretation (test code = Abnormal 12877-1) [facility]cos[facility] Hemoglobin (A1C)2022-11-01 00:53:02 Test Item Value Reference Range Interpretation Comments HGB A1C (test code = 4.2 % 4.0-5.7 4548-4) BONY (test code = BONY) Reference RangesNormal: <5.7%Prediabetes: 5.7 - 6.4%Diabetes: > 6.5% Lab Interpretation (test Normal code = 06994-4) [facility] (Total Cholesterol, Triglycerides, HDL) - [id number] 00:36:06 Test Item Value Reference Range Interpretation Comments CHOL (test code = 108 mg/dL 120-200 L 8001867660) HDL (test code = 25 mg/dL See_Comment L [Automated message] 1373781606) The system [employer] generated this result transmit seth reference range : >=50. The refer ence range was not u sed to interpret th is result as normal/abnormal . HDLC RATIO (test code = See_Comment [Au tomated message] 1044709641) The system [employer] generated this result transmit seth reference range : <=4.5. The refe rence range was not u sed to interpret th is result as normal/abnormal . TRIG (test code = 168 mg/dL 30-170 9789584307) LDL CHOL (test code = 49 mg/dL See_Comment [Auto mated message] 07781-0) The system [employer] generated this result transmit seth reference range : <=160. The refe rence range was not u sed to interpret th is result as normal/abnormal . VLDL (test code = 34 mg/dL 5-60 9114200622) Lab Interpretation (test Abnormal code = 56970-9) [facility]. METABOLIC PANEL (36202)2022-10-31 16:48:46 Test Item Value Reference Range Interpretation Comments NA (test code = 138 mmol/L 135-145 0594160577) K (test code = 3.0 mmol/L 3.5-5.0 L 3008299408) CL (test code = 106 mmol/L 98-108 2250721466) CO2 TOTAL (test code = 25 mmol/L 23-31 7172819554) AGAP (test code = 2-16 1362513858) BUN (test code = 16 mg/dL 7-23 9404569591) GLUCOSE (test code = 79 mg/dL 70-110 9450950332) CREATININE (test code = 1.24 mg/dL 0.50-1.04 H 1276685249) TOTAL BILI (test code = 0.9 mg/dL 0.1-1.7 6546607985) CALCIUM (test code = 8.5 mg/dL 8.6-10.6 L 6313440617) T PROTEIN (test code = 5.6 g/dL 6.3-8.2 L 8305638509) ALBUMIN (test code = 2.8 g/dL 3.5-5.0 L 6709071758) ALK PHOS (test code = 51 U/L 34-122 0458960113) ALTv (test code = 17 U/L 5-35 1742-6) AST(SGOT) (test code = 35 U/L 13-40 5664138104) eGFR (test code = mL/min/1.73m2 7481918983) BONY (test code = BONY) Association of Glomerular Filtration Rate (GFR) and Staging of Kidney Disease* + --+ --+ ------+| GFR (mL/min/1.73 m2) ?| With Kidney Damage ?| ?Without Kidney Damage+ --------+ --------+ +| ?>90 ?| ?Stage one ?| ? Normal ?+ ---+ ---+ -------+| ?60-89 ?| ?Stage two ?| ? Decreased GFR ? + --+ --+ ------+| ?30-59 ?| ?Stage three ?| ? Stage three ? + --+ --+ ------+| ?15-29 ?| ?Stage four ? | ? Stage four ?+ ---+ ---+ -------+| ?<15 (or dialysis) ? ?| ?Stage five ? | ? Stage five ?+ ---+ ---+ -------+ *Each stage assumes the associated GFR level has been in effect for at least three months. ?Stages 1 to 5, with or without kidney disease, indicate chronic kidney disease. Notes: Determination of stages one and two (with eGFR >59mL/min/1.73 m2) requires estimation of kidney damage for at least three months as defined by structural or functional abnormalities of the kidney, manifested by either:Pathological abnormalities or Markers of kidney damage (including abnormalities in the composition of the blood or urine or abnormalities in imaging tests). Lab Interpretation Abnormal (test code = 05252-8) [facility] WITH [id number] 16:33:02 Test Item Value Reference Range Interpretation Comments WBC (test code = See_Comment H [Automated 1562-2) message] The system which generated this result transmit seth reference range : 4.30 - 11.10 10*3/?L. The reference range was not used to interpret this result as normal/abnormal . RBC (test code = See_Comment L [Automated 444-8) message] The system which generated this result transmit seth reference range : 3.93 - 5.25 10*6/?L. The reference range was not used to interpret this result as normal/abnormal . HGB (test code = 10.0 g/dL 11.6-15.0 L 718-7) HCT (test code = 29.9 % 35.7-45.2 L 4544-3) MCV (test code = 94.3 fL 80.6-95.5 787-2) MCH (test code = 31.5 pg 25.9-32.8 785-6) MCHC (test code = 33.4 g/dL 31.6-35.1 786-4) RDW-SD (test code = 55.0 fL 39.0-49.9 H 90590-6) RDW-CV (test code = 15.8 % 12.0-15.5 H 788-0) PLT (test code = See_Comment [Automated 777-3) message] The system which generated this result transmit seth reference range : 166 - 358 10*3/ ?L. The reference range was not u sed to interpret th is result as normal/abnormal . MPV (test code = 11.5 fL 9.5-12.9 27923-2) NRBC/100 WBC (test See_Comment [Automat ed code = 0437869465) message] The system which generated this result transmit seth reference range : 0.0 - 10.0 /100 WBCs. The reference range was not used to interpret this result as normal/abnormal . NRBC x10^3 (test code See_Comment [Auto mated = 7232429002) message] The system which generated this result transmit seth reference range : 10*3/?L. The reference range was not used to interpret this result as normal/abnormal . GRAN MAT (NEUT) % 83.0 % (test code = 770-8) IMM GRAN % (test code 0.80 % = 9543938048) LYMPH % (test code = 8.0 % 736-9) MONO % (test code = 6.5 % 5905-5) EOS % (test code = 1.2 % 713-8) BASO % (test code = 0.5 % 706-2) GRAN MAT x10^3(ANC) 11.06 10*3/uL 1.88-7.09 H (test code = 8155054641) IMM GRAN x10^3 (test 0.11 10*3/uL 0.00-0.06 H code = 2648651984) LYMPH x10^3 (test code 1.07 10*3/uL 1.32-3.29 L = 731-0) MONO x10^3 (test code 0.86 10*3/uL 0.33-0.92 = 742-7) EOS x10^3 (test code = 0.16 10*3/uL 0.03-0.39 711-2) BASO x10^3 (test code 0.07 10*3/uL 0.01-0.07 = 704-7) Lab Interpretation Abnormal (test code = 76567-0) [facility] GLUCOSE (AUTOMATED)2022-07-17 14:01:47 Test Item Value Reference Range Interpretation Comments POCT GLU (test code = 5952839997) 92 mg/dL 70-110 Lab Interpretation (test code = Normal 70927-2) [facility] GLUCOSE (AUTOMATED)2022-07-17 14:01:47 Test Item Value Reference Range Interpretation Comments POCT GLU (test code = 8814748036) 92 mg/dL 70-110 Lab Interpretation (test code = Normal 82934-6) [facility] URINALYSIS, [id number] 19:19:00 Test Item Value Reference Range Interpretation [...] 3267) Lab Interpretation (test Abnormal code = 40766-1) [facility]"
[2022-11-12 10:14] LABS: Absolute Lymphocytes (CBC) 1.8 K/uL (0.7-4.9); Hematocrit 29.7 % (36.0-45.0); MCV 95.8 fL (80-100); MPV 8.9 fL (7.6-11.3)
[2022-11-12 10:32] LABS: Albumin 2.5 g/dL (3.4-5.0); Bilirubin Direct 0.1 mg/dL (0-0.2); Bilirubin Total 0.4 mg/dL (0.2-1.0); Protein, Total 6.6 g/dL (6.4-8.2); Troponin High Sensitivity 103.7 pg/mL (<58.9)
[2022-11-12 10:35] LABS: Magnesium 1.1 mg/dL (1.6-2.4)
--- NOTE | 2022-11-12 11:03 | EDPHYS ---
Physician Documentation [facility] Name: Lucille Padron Age: 82 yrs Sex: Female : 1940 Arrival Date: 11/12/2022 Time: 09:27 Bed 16 Private MD: ED Physician Beau Tripathi HPI: 11/12 09:36 This 82 yrs old Female presents to ER via Unassigned with complaints of shortness of ms3 breath. 09:36 The patient has shortness of breath at rest. Onset: The symptoms/episode began/occurred ms3 1.5 hour(s) ago. Duration: The symptoms are continuous, but are steadily getting better. The patient's shortness of breath has no apparent modifying factors. Associated signs and symptoms: Pertinent positives: chest pain, Pertinent negatives: fever. Severity of symptoms: At their worst the symptoms were severe in the emergency department the symptoms have improved Pain is currently a 0 / 10. 82-year-old female presents via [facility] for difficulty breathing and chest pain. EMS notes on their arrival patient was breathing 30 times per minute with a room air saturation of 79 to 81%. Patient was placed on nonrebreather and oxygen saturations improved to 95% patient was given albuterol and Atrovent, Nitropaste, 10 mg of labetalol. EMS noted patient's breathing improved after treatment.. Historical: - Allergies: 09:39 No Known Allergies; bp - PMHx: 09:39 CAD; NIDDM; Congestive heart failure; bp - Immunization history:: Adult Immunizations up to date. - Social history:: Smoking status: Patient reports the use of cigarette tobacco products, unknown amount. ROS: 09:36 Constitutional: Negative for fever, and chills. Neck: Negative for injury, pain, and ms3 swelling, Cardiovascular: Negative for chest pain, and palpitations. Abdomen/GI: Negative for abdominal pain, nausea, vomiting, diarrhea, and constipation. 09:36 Skin: Negative for injury, rash, and discoloration. 09:36 Respiratory: Positive for shortness of breath. 09:36 All other systems are negative. Exam: 09:36 Constitutional: This is a well developed, well nourished patient who is awake, alert, ms3 and in no acute distress. Head/Face: Normocephalic, atraumatic. Neck: Trachea midline, no cervical lymphadenopathy. Supple, full range of motion without nuchal rigidity, or vertebral point tenderness. No Meningismus. Chest/axilla: Normal chest wall appearance and motion. Nontender with no deformity. Cardiovascular: Regular rate and rhythm with a normal S1 and S2. No gallops, murmurs, or rubs. Normal PMI, no JVD. No pulse deficits. 09:36 Respiratory: moderate respiratory distress is noted, Breath sounds: rales, that are moderate, are heard diffusely. 09:47 ECG was reviewed by the Attending Physician. ms3 Vital Signs: 09:36 BP 153 / 85; Pulse 96; Resp 25; Temp 97.5; Pulse Ox 100% on 12% BiPAP; Weight 68.04 kg; bp Height 5 ft. 4 in. (162.56 cm); 10:32 BP 141 / 74; Pulse 91; Resp 19; Temp 20; Pulse Ox 100% ; bp 11:54 BP 156 / 84; Pulse 88; Resp 22; Pulse Ox 100% ; bp 13:04 BP 164 / 85; Pulse 88; Resp 19; Pulse Ox 98% ; bp 09:36 Body Mass Index 25.75 (68.04 kg, 162.56 cm) bp MDM: 09:28 Patient medically screened. ms3 11:00 Differential diagnosis: Anemia CHF exacerbation, pneumonia, pulmonary edema. ms3 11:00 Data reviewed: vital signs, nurses notes, lab test result(s), EKG, radiologic studies, ms3 plain films. Test interpretation: by ED physician or midlevel provider: plain radiologic studies, CXR interpretation by me: Pulmonary edema. Counseling: I had a detailed discussion with the patient and/or guardian regarding: the historical points, exam findings, and any diagnostic results supporting the discharge/admit diagnosis, lab results, radiology results, the need for further work-up and treatment in the hospital. ED course: . 11/12 09:28 Order name: Basic Metabolic Panel; Complete Time: 10:58 ms3 11/12 09:28 Order name: CBC with Diff; Complete Time: 10:17 ms3 11/12 09:28 Order name: LFT's; Complete Time: 10:58 ms3 11/12 09:28 Order name: Magnesium; Complete Time: 10:58 ms3 11/12 09:28 Order name: NT PRO-BNP; Complete Time: 10:58 ms3 11/12 09:28 Order name: Troponin HS; Complete Time: 10:58 ms3 11/12 09:28 Order name: BIPAP ms3 11/12 09:28 Order name: XRAY Chest (1 view) ms3 11/12 10:35 Order name: SARS RAPID ms3 11/12 10:35 Order name: SARS-COV-2 Antigen Rapid bd 11/12 12:41 Order name: Echo with Doppler EDMS 11/12 09:28 Order name: EKG; Complete Time: 09:29 ms3 11/12 09:28 Order name: Cardiac monitoring; Complete Time: 09:43 ms3 11/12 09:28 Order name: EKG - Nurse/Tech; Complete Time: 09:43 ms3 11/12 09:28 Order name: IV Saline Lock; Complete Time: 09:43 ms3 11/12 09:28 Order name: Labs collected and sent; Complete Time: 09:43 ms3 11/12 09:28 Order name: O2 Per Protocol; Complete Time: 09:43 ms3 11/12 09:28 Order name: O2 Sat Monitoring; Complete Time: 09:43 ms3 EC:47 Rate is 95 beats/min. Rhythm is regular. Left axis deviation noted. MS interval is ms3 normal. QRS interval is prolonged. Clinical impression: NSR w/ Non-specific ST/T Changes and LBBB. Interpreted by me. Reviewed by me. Administered Medications: 10:00 Drug: Aspirin Chewable Tablet 324 mg Route: PO; bp 13:07 Follow up: Response: No adverse reaction bp 11:45 Drug: Magnesium Sulfate 2 grams Route: IVPB; Infused Over: 2 hrs; Site: right forearm; bp 13:06 Follow up: IV Status: Infusion continued; IV Intake: 50ml bp 11:45 Drug: Lasix (furosemide) 40 mg Route: IVP; Site: right forearm; bp 13:07 Follow up: Response: No adverse reaction bp Disposition Summary: 11/12/22 11:03 Hospitalization Ordered Hospitalization Status: Inpatient Admission ms3 Condition: Stable ms3 Problem: new ms3 Symptoms: have improved ms3 Bed/Room Type: Standard ms3 Provider: Hussein Meléndez(11/12/22 11:06) ms3 Location: Telemetry/MedSurg (Inpatient)(11/12/22 13:01) bd Room Assignment: 205(11/12/22 13:01) bd Diagnosis - Heart failure, unspecified ms3 - Acute pulmonary edema ms3 - Shortness of breath ms3 - Acute respiratory failure with hypoxia ms3 - Hypomagnesemia ms3 - Renal insufficiency ms3 Forms: - Medication Reconciliation Form ms3 - SBAR form ms3 Critical care time excluding procedures: 11:00 Critical care time: Bedside Care: 35 minutes, Consultation: 10 minutes, Family ms3 Intervention: 10 minutes. Total time: 55 minutes Signatures: Dispatcher [employer] EDLucille Lyle Brian, RN RN Beau Nicole DO DO ms3 Corrections: (The following items were deleted from the chart) 11:03 11:03 Telemetry/MedSurg (Inpatient) ms3 ms3 11:03 11:03 ms3 ms3 11:06 11:03 Jeff Lynch ms3 ms3 13:01 11:03 Intensive Care Unit ms3 bd 13:01 11:03 ms3 bd
--- NOTE | 2022-11-12 11:03 | ER ---
Nurse's Notes [facility] Name: Lucille Padron Age: 82 yrs Sex: Female : 1940 Arrival Date: 11/12/2022 Time: 09:27 Bed 16 Private MD: Diagnosis: Heart failure, unspecified;Acute pulmonary edema;Shortness of breath;Acute respiratory failure with hypoxia;Hypomagnesemia;Renal insufficiency Presentation: 11/12 09:36 Chief complaint: EMS states: SOB AT HOME, DESAT 80% ON ROOM AIR. Coronavirus screen: bp cough unrelated to allergies, shortness of breath, Client presents with at least one sign or symptom that may indicate coronavirus-19. Standard/surgical mask placed on the client. Provider contacted for isolation considerations. Ebola Screen: No symptoms or risks identified at this time. Initial Sepsis Screen: Does the patient meet any 2 criteria? RR > 20 per min. HR > 90 bpm. Yes Does the patient have a suspected source of infection? Yes: Productive cough/pneumonia. Risk Assessment: Do you want to hurt yourself or someone else? Patient reports no desire to harm self or others. Onset of symptoms was November 12, 2022 at 08:00. Care prior to arrival: IV initiated. 20 GA, in the right forearm, Med neb given. Oxygen administered. via nasal cannula. 09:36 Method Of Arrival: EMS: [facility] bp 09:36 Acuity: JONATHAN 2 bp Triage Assessment: 09:39 General: Appears distressed, uncomfortable, obese, Behavior is cooperative, appropriate bp for age, anxious. Pain: Denies pain. EENT: No deficits noted. Neuro: Level of Consciousness is awake, alert, obeys commands, Oriented to Appropriate for age. Cardiovascular: Rhythm is sinus rhythm. Respiratory: Airway is patent Respiratory effort is labored. GI: No signs and/or symptoms were reported involving the gastrointestinal system. : No signs and/or symptoms were reported regarding the genitourinary system. Derm: No deficits noted. Musculoskeletal: No deficits noted. Historical: - Allergies: :39 No Known Allergies; bp - PMHx: 09:39 CAD; NIDDM; Congestive heart failure; bp - Immunization history:: Adult Immunizations up to date. - Social history:: Smoking status: Patient reports the use of cigarette tobacco products, unknown amount. Screenin:41 [facility] ED Fall Risk Assessment (Adult) History of falling in the last 3 months, bp including since admission No falls in past 3 months (0 pts). Humpty Dumpty Scale Fall Assessment Tool (age< 18yrs) Age 13 years and above (1 pt). Abuse screen: Denies threats or abuse. Denies injuries from another. Nutritional screening: No deficits noted. Tuberculosis screening: No symptoms or risk factors identified. Fall Risk No fall in past 12 months (0 pts). Assessment: 09:41 General: SEE TRIAGE NOTE. bp 11:54 Reassessment: PT TRIALED ON 4LNC VS BIPAP. NOTABLE IMPROVEMENT. bp 13:05 Reassessment: ADMIT COMPLETE, BED ASSIGNED. bp Vital Signs: 09:36 BP 153 / 85; Pulse 96; Resp 25; Temp 97.5; Pulse Ox 100% on 12% BiPAP; Weight 68.04 kg; bp Height 5 ft. 4 in. (162.56 cm); 10:32 BP 141 / 74; Pulse 91; Resp 19; Temp 20; Pulse Ox 100% ; bp 11:54 BP 156 / 84; Pulse 88; Resp 22; Pulse Ox 100% ; bp 13:04 BP 164 / 85; Pulse 88; Resp 19; Pulse Ox 98% ; bp 09:36 Body Mass Index 25.75 (68.04 kg, 162.56 cm) bp ED Course: 09:27 Patient arrived in ED. ms3 09:28 Beau Tripathi DO is Attending Physician. ms3 09:36 Abdiel Khan, JOSÉ is Primary Nurse. bp 09:38 Triage completed. bp 09:39 Arm band placed on. bp 09:41 Patient has correct armband on for positive identification. Bed in low position. Call bp light in reach. Side rails up X2. 09:41 Maintain EMS IV. Dressing intact. Good blood return noted. Site clean \T\ dry. Gauge \T\ bp site: 20 GA R FA. 10:11 XRAY Chest (1 view) In Process Unspecified. EDMS 11:03 Jeff Lynch MD is Hospitalizing Provider. ms3 11:06 Hussein Meléndez MD is Hospitalizing Provider. ms3 13:05 No provider procedures requiring assistance completed. Patient admitted, IV remains in bp place. Administered Medications: 10:00 Drug: Aspirin Chewable Tablet 324 mg Route: PO; bp 13:07 Follow up: Response: No adverse reaction bp 11:45 Drug: Magnesium Sulfate 2 grams Route: IVPB; Infused Over: 2 hrs; Site: right forearm; bp 13:06 Follow up: IV Status: Infusion continued; IV Intake: 50ml bp 11:45 Drug: Lasix (furosemide) 40 mg Route: IVP; Site: right forearm; bp 13:07 Follow up: Response: No adverse reaction bp Medication: 09:41 VIS not applicable for this client. bp Intake: 13:06 IV: 50ml; Total: 50ml. bp Outcome: 11:03 Decision to Hospitalize by Provider. ms3 13:18 Admitted to Med/surg accompanied by tech, via wheelchair, room 205, with oxygen, with bp chart, Report called to NIKKI KUMAR 13:18 Condition: stable 13:18 Instructed on the need for admit. 14:45 Patient left the ED. bp Signatures: Dispatcher [employer] EDMS Abdiel Khan RN RN bp Beau Tripathi DO DO ms3 Corrections: (The following items were deleted from the chart) 09:43 09:41 Maintain EMS IV. bp bp 13:24 09:36 BP 153 / 85; Pulse 96bpm; Resp 25bpm; Pulse Ox 100% 02 12% BiPAP; Temp 97.5F; bp bp
--- NOTE | 2022-11-12 11:09 | RAD REPORT ---
EXAM DESCRIPTION: Roseline Single View11/12/2022 10:09 am CLINICAL HISTORY: Shortness of breath COMPARISON: September 2022 FINDINGS: Moderate bilateral pulmonary opacities. Cardiomegaly IMPRESSION: These findings probably indicate CHF
[2022-11-12] MEDS ORDERED: ASPIRIN 81 MG CHEWABLE TABLET ONE (11:19)
[2022-11-12] MEDS ORDERED: Magnesium Sulfate 2gm IVPB 2 G/50 ML BAG IV ONE ×2 (11:38→13:45)
[2022-11-12] MEDS ORDERED: FUROSEMIDE 40 MG/4 ML VIAL ONE (11:38)
[2022-11-12 11:46] LABS: SARS-CoV-2 Antigen Rapid Res Negative (Negative)
[2022-11-12] MEDS ORDERED: ACETAMINOPHEN 325 MG TABLET PO PRN (12:39)
[2022-11-12] MEDS ORDERED: HYDROCODONE/APAP 5/325 MG TAB PO PRN (12:39)
[2022-11-12] MEDS ORDERED: ONDANSETRON 4 MG/2 ML VIAL IV PRN (13:05)
--- NOTE | 2022-11-12 13:15 | P.HP ---
Certification for Inpatient Patient admitted to: Inpatient With expected LOS: >2 Midnights Patient will require the following post-hospital care: None Practitioner: I am a practitioner with admitting privileges, knowledge of patient current condition, hospital course, and medical plan of care. Services: Services provided to patient in accordance with Admission requirements found in Title 42 Section 412.3 of the Code of Federal Regulations <Aure Keene - Last Filed: 11/12/22 19:51> Patient History Date of Service: 11/12/22 Reason for admission: Chest pain History of Present Illness: Patient is an 82-year-old female with a past medical history significant for DM 2, CAD, CHF, hypertension, hyperlipidemia, OAB, depression presents with complaint of chest pain onset this morning. Patient indicated that chest pain is located in the left chest wall. Patient rated pain as 10/10 in severity and described pain as squeezing in quality. Patient reported associated signs and symptoms of diaphoresis, shortness of breath, headache, dizziness and abdominal pain located in the right lower quadrant with radiation to the left lower quadrant. Patient rated abdominal pain as 7/10 in severity and described pain as sharp in quality. Patient denies any other signs and symptoms. Symptoms are aggravated or relieved by nothing. Patient decided to present to the hospital due to worsening symptoms. - Past Medical/Surgical History Diabetic: Yes -: HTN -: Non-Insulin Dependent Type 2 Diabetes -: CAD -: eye surgery -: cholecystectomy -: partial hysterecomy Psychosocial/ Personal History: Patient lives at home alone. Her daughter lives across the street at helps care for her. - Social History Smoking Status: Unknown if ever smoked Alcohol use: No CD- Drugs: No Caffeine use: Yes Place of Residence: Home <LynnerahelTee cuevassamuel Cuevas - Last Filed: 11/12/22 19:51> Date of Service: 11/13/22 <Hussein Meléndez - Last Filed: 11/13/22 16:49> Allergies No Known Allergies Allergy (Verified 02/17/19 01:26) Home Medications: Aspirin [Aspirin EC 81 MG] 81 mg PO DAILY 02/17/19 Fenofibrate,Micronized [Fenofibrate] 200 mg PO DAILY 02/17/19 Metformin HCl 500 mg PO BID 02/17/19 PARoxetine HCl [Paroxetine HCl] 40 mg PO DAILY 02/17/19 Pravastatin Sodium 80 mg PO DAILY 02/17/19 carvediloL [Carvedilol] 12.5 mg PO BID 02/17/19 Pantoprazole Sodium [Protonix] 40 mg PO DAILY #30 tablet. 02/20/19 Amlodipine [Norvasc*] 5 mg PO DAILY 10/11/22 Apixaban [Eliquis] 5 mg PO BID 10/11/22 Ciprofloxacin HCl [Cipro] 500 mg PO BID #6 tab 10/11/22 Oxybutynin Chloride [Oxybutynin Chloride ER] 5 mg PO DAILY 10/11/22 metroNIDAZOLE [Flagyl] 500 mg PO Q8H #9 tab 10/11/22 Review of Systems General: Sweats Eyes: Unremarkable ENT: Unremarkable Respiratory: Shortness of Breath, SOB with Excertion Cardiovascular: Chest Pain Gastrointestinal: Abdominal Pain Genitourinary: Unremarkable Musculoskeletal: Unremarkable Integumentary: Unremarkable Neurological: Other (ZAMUDIO, dizziness ) Lymphatics: Unremarkable <Aure Keene E - Last Filed: 11/12/22 19:51> Physical Examination - Physical Exam General: Alert, In no apparent distress, Oriented x3, Cooperative HEENT: Atraumatic, PERRLA, Mucous membr. moist/pink, EOMI, Sclerae nonicteric Neck: Supple, 2+ carotid pulse no bruit, No LAD, Without JVD or thyroid abnormality Respiratory: Diminished Cardiovascular: Normal S1 S2, No murmurs Capillary refill: <2 Seconds Gastrointestinal: Normal bowel sounds, Tenderness Musculoskeletal: No clubbing, No contractures, No erythema Integumentary: No rashes, No breakdown, No significant lesion Neurological: Normal speech, Normal tone, Normal affect Lymphatics: No axilla or inguinal lymphadenopathy - Studies Laboratory Data (last 24 hrs) 11/12/22 09:40: WBC 13.20 H, Hgb 9.8 L, Hct 29.7 L, Plt Count 314 11/12/22 09:40: Sodium 141, Potassium 4.0, BUN 19 H, Creatinine 1.36 H, Glucose 187 H, Magnesium 1.1 L*, Total Bilirubin 0.4, AST 23, ALT 18, Alkaline Phosphatase 47 <Aure Keene - Last Filed: 11/12/22 19:51> Assessment and Plan - Plan --Acute on chronic diastolic and systolic CHF exacerbation. Cardiology consulted. Echocardiogram pending. Continue diuresis with Lasix. Daily weight and strict I/O. We will await further recommendation from teleprinter installer. -- Chest pain. To rule out ACS. Serial troponins elevated. We will continue to trend troponin levels. Telemetry to monitor for any significant arrhythmia. Service Car Operator on board. Recommends placing patient on anticoagulation with Lovenox or heparin drip. Patient started on Lovenox subQ. Echocardiogram pending. Further management per teleprinter installer. --History of CAD. Continue aspirin and statin -- HLD. Continue statin. --Hypertension. Poorly controlled. Continue home medications and hydralazine as needed. --GERD. Continue Protonix. --OAB. Continue home medication. --Depression. Continue home medication. --History of CAD. Continue aspirin and statin. --Hypomagnesemia. Replete as needed. --DVT prophylaxis with Lovenox subQ. Discharge Plan: Home Plan to discharge in: Greater than 2 days - Advance Directives Does patient have a Living Will: No Does patient have a Durable POA for Healthcare: No - Code Status/Comfort Care Code Status Assessed: Yes Physician Review: Patient Assessed, Agree with Above Assessment and Plan Critical Care: No <Aure Keene - Last Filed: 11/12/22 19:51> Physician Review: Patient Assessed, Agree with Above Assessment and Plan Physician Review Additional Text: Family history reviewed - noncontributory. <Hussein Meléndez - Last Filed: 11/13/22 16:49>
[2022-11-12] MEDS: IPRATROPIUM BROM 0.5MG/2.5ML NEB SCH ×2 (14:58→20:15)
[2022-11-12] MEDS: ALBUTEROL 2.5 MG/3 ML NEB SOL NEB SCH ×2 (14:58→20:15)
--- NOTE | 2022-11-12 15:14 | EKG ---
Test Date: 2022-11-12 Test Time: 09:29:51 Solid Waste Engineer: BP MEASUREMENT RESULTS: Intervals: Rate: 95 MT: 142 QRSD: 142 QT: 394 QTc: 495 Mcconnell: P: 41 MT: 142 QRS: -46 T: 72 INTERPRETIVE STATEMENTS: Normal sinus rhythm Left axis deviation Left bundle branch block Abnormal ECG Compared to ECG 10/09/2022 19:58:38 No significant changes Electronically Signed On 11-12-22 15:14:23 CHANGE ADVISOR by Dae Chaidez
[2022-11-12 15:45] LABS: Magnesium 1.5 mg/dL (1.6-2.4); Phosphorus 3.1 mg/dL (2.5-4.9)
[2022-11-12 15:58] VITALS: BMI 25.7
[2022-11-12] MEDS: INSULIN -REGULAR HUMAN 50 UNIT/0.5 ML ML SQ SCH ×2 (16:30→21:00)
[2022-11-12] MEDS: FUROSEMIDE 40 MG/4 ML VIAL IV SCH (16:31)
[2022-11-12] MEDS: carvediloL 12.5 MG TAB PO SCH (16:31)
--- NOTE | 2022-11-12 18:01 | CON ---
Date of Consultation: 11/12/2022 Reason For Consultation: Shortness of breath. History Of Present Illness: This is an 82-year-old female, no history of cardiac disease. Has histo ry of hypertension, chronic atrial fibrillation, and diabetes. She had a prolonged hospital stay for C diff colitis recently at [facility]. Comes in with shortness of breath, lower extremity edema, and orth opnea. Also having chest pain on and off, not related to exertion, but she is not very active. Kaushik es having any diaphoresis and chest pain had short lived, left side, no radiation. Past Medical History: As outlined above in the HPI. Medications: Refer to reconciliation sheet for detailed list. Allergies: NO KNOWN DRUG ALLERGIES. Family History: No premature coronary artery disease or cancer. Social History: She does not smoke or drink. Does not use any drugs. Review of Systems: All systems reviewed and they were negative except what mentioned in HPI. Physical Examination: Vital Signs: Reviewed. Head and Neck: Pupils are equal, reactive to light. Intact eye movements. Mild JVD elevation. No cervical lymphadenopathy. Neck is supple. Thyroid is not enlarged. Lungs: Crackles both lung bases, half the way up with no accessory muscle use or muscle retraction. Heart: Regular rate and rhythm. No extra sounds. Abdomen: Soft, nontender. Bowel sounds positive. No organomegaly. No masses or hernia. No rigidi ty or rebound. Extremities: Edema 2+ bilaterally. No clubbing or cyanosis. Intact pulses. Skin: No rash. Neurologic: Alert, awake, oriented x3. No acute focal deficits appreciated. Investigations: Troponin is 426. BUN 19, creatinine 1.36, and hemoglobin is 9.8. Assessment And Recommendations: 1.Acute congestive heart failure, unknown ejection fraction. Agree with IV diuresis with Lasix at 4 0 mg q.12 hours. Monitor BUN, creatinine, electrolytes, and obtain echocardiogram tomorrow morning. 2.Elevated troponin with chest pain. This could be non-ST elevation myocardial infarction. Recomme nd baby aspirin, discontinue Eliquis, and start on Lovenox therapeutic dose or heparin drip, and this patient will need an ischemia workup and the method will be determined after obtaining the echocardi ogram. 3.History of deep vein thrombosis. Discontinue Eliquis now, put her on Lovenox or IV heparin in ant icipation for possible need for coronary angiogram on . SR/MODL Voice ID: [id number] Report ID: [id number]
[2022-11-12] MEDS ORDERED: HYDRALAZINE HCL 20 MG/ML VIAL IV PRN (20:01)
[2022-11-12] MEDS ORDERED: HEPARIN 5000 UNIT/ML 1 ML VIAL SQ SCH (21:00)
[2022-11-12] MEDS ORDERED: APIXABAN 5 MG TABLET PO SCH (21:00)
--- NOTE | 2022-11-12 21:44 | RAD REPORT ---
EXAM DESCRIPTION: CT - Abdomen Wo Contrast CLINICAL HISTORY: Abdominal pain. Abdominal pain COMPARISON: No comparisons TECHNIQUE All CT scans are performed using dose optimization technique as appropriate and may includ e automated exposure control or mA/KV adjustment according to patient size. FINDINGS: Small bilateral pleural effusions with atelectasis in both posterior lung bases. Cholecystectomy. Noncontrast liver, pancreas, adrenal glands and kidneys show no concerning finding. 3.3 cm rounded hypodense lesion is present in the spleen, probably a cyst or hemangioma. No free fluid, bowel obstruction or free air. 3.3 cm duodenal diverticulum is present. Moderate stool is present throughout the colon. Normal appendix. No significant adenopathy in the abdomen. Mild lumbar degenerative changes. IMPRESSION: No acute process is identified. Small bilateral pleural effusions with atelectasis in both lung bases.
[2022-11-12] MEDS: ATORVASTATIN 10 MG TAB PO SCH (22:33)
[2022-11-12] MEDS: ENOXAPARIN 80 MG/0.8 ML SQ SCH (22:34)
[2022-11-13] MEDS: IPRATROPIUM BROM 0.5MG/2.5ML NEB SCH ×4 (02:10→20:50)
[2022-11-13] MEDS: ALBUTEROL 2.5 MG/3 ML NEB SOL NEB SCH ×4 (02:10→20:50)
[2022-11-13 04:00] LABS: Absolute Lymphocytes (CBC) 1.5 K/uL (0.7-4.9); Hematocrit 24.9 % (36.0-45.0); Lymphocytes % 22.4 % (15.3-44.8); MCV 93.8 fL (80-100); MPV 8.5 fL (7.6-11.3); RBC Red Blood Cell Count 2.66 M/uL (3.86-4.86)
[2022-11-13 04:26] LABS: Magnesium 1.7 mg/dL (1.6-2.4); Potassium 3.3 mmol/L (3.5-5.1)
[2022-11-13] MEDS ORDERED: MAGNESIUM SULFATE 1 gm IVPB 1 GM/100 ML BAG IV ONE (05:30)
[2022-11-13] MEDS ORDERED: POTASSIUM 25 MEQ EFFERV TAB PO ONE (06:00)
[2022-11-13] MEDS: INSULIN -REGULAR HUMAN 50 UNIT/0.5 ML ML SQ SCH ×4 (07:30→20:53)
[2022-11-13] MEDS: ASPIRIN 81 MG CHEWABLE TABLET PO SCH (08:57)
[2022-11-13] MEDS: PARoxetine HCL 10 MG TAB PO SCH (08:57)
[2022-11-13] MEDS: OXYBUTYNIN ER 5 MG TAB PO SCH (08:58)
[2022-11-13] MEDS: carvediloL 12.5 MG TAB PO SCH ×2 (08:58→17:31)
[2022-11-13] MEDS: FUROSEMIDE 40 MG/4 ML VIAL IV SCH ×2 (08:58→17:31)
[2022-11-13] MEDS: AMLODIPINE 5 MG TAB PO SCH (08:58)
[2022-11-13] MEDS: PANTOPRAZOLE 40MG TABLET PO SCH (08:58)
[2022-11-13] MEDS: FENOFIBRATE 160 MG TAB PO SCH (08:58)
[2022-11-13] MEDS: ENOXAPARIN 80 MG/0.8 ML SQ SCH (08:58)
--- NOTE | 2022-11-13 14:21 | ECHO ---
HEIGHT: 5 ft 4 in WEIGHT: 137 lb 9.6 oz DATE OF STUDY: 11/13/[address]: Aure Keene 2-DIMENSIONAL: YES M.MODE: YES DOPPLER: YES COLOR FLOW: YES TDS: NO PORTABLE: YES DEFINITY: NO BUBBLE STUDY: NO DIAGNOSIS: CONGESTIVE HEART FAILURE EXACERBATION CARDIAC HISTORY: CATHERIZATION: NO SURGERY: NO PROSTHETIC VALVE: NO PACEMAKER: YES MEASUREMENTS (cm) DIASTOLIC (NORMALS) SYSTOLIC (NORMALS) IVSd 1.1 (0.6-1.2) LA Diam 3.3 (1.9-4.0) LVEF 35-40% LVIDd 5.6 (3.5-5.7) LVIDs 4.4 (2.0-3.5) %FS 21% LVPWd 1.4 (0.6-1.2) Ao Diam 2.5 (2.0-3.7) 2 DIMENSIONAL ASSESSMENT: RIGHT ATRIUM: NORMAL LEFT ATRIUM: NORMAL RIGHT VENTRICLE: NORMAL LEFT VENTRICLE: LEFT VENTRICULAR HYPERTROPHY TRICUSPID VALVE: MITRAL VALVE: MITRAL ANNULAR CALCIFICATION WITH MILD MITRAL REGURGITATION PULMONIC VALVE: NORMAL AORTIC VALVE: NORMAL PERICARDIAL EFFUSION: TRACE AORTIC ROOT: NORMAL LEFT VENTRICULAR WALL MOTION: MILD ANTEROSEPTAL AND ANTERIOR HYPOKINESIS. DOPPLER/COLOR FLOW: SEE BELOW. COMMENTS: 1. MILDLY DEPRESSED LEFT VENTRICULAR EJECTION FRACTION 35-40%. 2. WALL MOTION ABOVE. 3. MITRAL ANNULAR CALCIFICATION WITH MILD MITRAL REGURGITATION. 4. MILD TRICUSPID REGURGITATION. TECHNOLOGIST: Jesus DIANA
--- NOTE | 2022-11-13 16:52 | P.PN ---
Subjective Date of Service: 11/13/22 Chief Complaint: Chest pain No acute events overnight. She reports that her shortness of breath is persistent, but improving. She reports associated edema and orthopnea. She denies any current chest pain or palpitations. Review of Systems 10-point ROS is otherwise unremarkable Respiratory: Shortness of Breath Cardiovascular: Orthopnea, Edema Physical Examination - Vital Signs Temperature: 98.7 F Blood Pressure: 123/59 Pulse: 69 Respirations: 14 Pulse Ox (%): 95 - Physical Exam General: Alert, In no apparent distress, Oriented x3 HEENT: Atraumatic, EOMI, Sclerae nonicteric Neck: JVD distended Respiratory: Crackles/rales (bibasilar) Cardiovascular: Normal pulses, Regular rate/rhythm, No gallops, No rubs, No murmurs, Edema (2-3+ BLE) Gastrointestinal: Normal bowel sounds, Soft and benign, Non-distended Musculoskeletal: No clubbing Integumentary: No rashes Neurological: Normal speech, Cranial nerves 3-12 intact, Normal affect Assessment And Plan - Plan # Non-ST Segment Elevation Myocardial Infarction # History of Coronary Artery Disease # Hypertension # Dyslipidemia - Evaluation thus far: - EKG: no reported STEMI criteria, trend - Serial troponin: 103.7 -> 426.0 -> 451.4 -> 393.2 - Transthoracic echocardiogram = "1. mildly depressed left ventricular ejection fraction 35-40%. 2. wall motion as above. 3. mitral annular calcification with mild mitral regurgitation. 4. mild tricuspid regurgitation." - Chest x-ray = "these findings probably indicate CHF" - V/Q scan = pending - Management plan: - Consult Cardiology and spoke with Dr. Chaidez - recommendations appreciated - Plans for [facility] tomorrow morning - Continue aspirin, atorvastatin, carvedilol, enoxaparin - Continue home amlodipine, fenofibrate - Consider starting SIVAKUMAR-inhibitor/ARB once creatinine improves # Acute on Chronic Decompensated Systolic Congestive Heart Failure with Reduced Ejection Fraction (LVEF 35-40 %) - Consult Cardiology and spoke with Dr. Chaidez - recommendations appreciated - NT-Pro BNP = 85,069 - Transthoracic echocardiogram = "1. mildly depressed left ventricular ejection fraction 35-40%. 2. wall motion as above. 3. mitral annular calcification with mild mitral regurgitation. 4. mild tricuspid regurgitation." - Diuresis with IV furosemide - Continue home carvedilol - Daily weights - Strict I/O - Cardiac diet, 1.5 L fluid restriction, 2 g Na restriction # Depression - Continue home paroxetine # Gastroesophageal Reflux Disease - Continue home pantoprazole # Splenic Lesion (3.3 cm) Per radiology report: "3.3 cm rounded hypodense lesion is present in the spleen, probably a cyst or hemangioma." - Follow-up with PCP Hussein Meléndez M.D.
[2022-11-13] MEDS: ENOXAPARIN 60 MG/0.6 ML SQ SCH (17:53)
--- NOTE | 2022-11-13 19:38 | PN ---
Date of Progress Note: 11/13/2022 Subjective: Seen at bedside. She is breathing better. Lower extremity edema is improved. Review of Systems: She has shortness of breath on exertion. Mild orthopnea. No lower extremity edema. No chest pain. No nausea, vomiting, diarrhea. No abdominal pain. No dysuria, polyuria, or urinary urgency. All o ther systems reviewed are negative. Physical Examination: Vital Signs: Reviewed. Head and Neck: Pupils are equal, reactive to light. Intact eye movements. No cervical lymphadenopa thy. JVD has improved. Lungs: Clear to auscultation bilaterally with decreased breathing sounds. No accessory muscle use o r muscle retraction. Heart: Irregular. No extra sounds. Abdomen: Soft, nontender. Bowel sounds positive. No organomegaly. No masses or hernia. No rigidi ty or rebound. Extremities: 1 to 2+ pitting edema. No clubbing or cyanosis. Intact pulses. Skin: No rash. Neurologic: Alert, awake, oriented x3. No acute focal deficits appreciated. Lymph nodes: No cervical or axillary adenopathy. Investigations: BUN is 26, creatinine is 1.67, and hemoglobin is 8.5. Echocardiogram: Ejection fra ction is about 35% with anterior wall hypokinesis. Assessment/recommendation: 1.Acute systolic heart failure exacerbation with a drop in ejection fraction, responding well to diu retics. Right ventricular systolic pressures were very high. BUN and creatinine started to go sligh tly up, so carefully monitor the diuretics. 2.Elevated troponin, likely due to [id number] myocardial infarction. The patient is off the E liquis. The last dose was yesterday morning. She is on Lovenox. Continue current management. Keep n.p.o. past midnight. Plan for coronary angiogram tomorrow. 3.Hypertension. Blood pressure is elevated. Should improve further with diuresis. 4.History of deep venous thrombosis. The patient will need to be on assisted anticoagulation. How ever, I will switch her to Lovenox for the purpose of doing coronary angiogram tomorrow due to non-ST -elevation myocardial infarction. SR/MODL Voice ID: [id number] Report ID: [id number]
[2022-11-13] MEDS: ATORVASTATIN 10 MG TAB PO SCH (20:53)
[2022-11-14] MEDS: IPRATROPIUM BROM 0.5MG/2.5ML NEB SCH ×4 (01:50→19:15)
[2022-11-14] MEDS: ALBUTEROL 2.5 MG/3 ML NEB SOL NEB SCH ×4 (01:50→19:15)
[2022-11-14 04:26] LABS: Magnesium 1.6 mg/dL (1.6-2.4); Potassium 3.9 mmol/L (3.5-5.1)
[2022-11-14] MEDS: ASPIRIN 81 MG CHEWABLE TABLET PO SCH (06:13)
[2022-11-14] MEDS: carvediloL 12.5 MG TAB PO SCH ×2 (06:13→16:25)
[2022-11-14] MEDS: INSULIN -REGULAR HUMAN 50 UNIT/0.5 ML ML SQ SCH ×4 (07:23→21:00)
[2022-11-14] MEDS ORDERED: MAGNESIUM SULFATE 1 gm IVPB 1 GM/100 ML BAG IV ONE (07:30)
[2022-11-14] MEDS: OXYBUTYNIN ER 5 MG TAB PO SCH (09:00)
[2022-11-14] MEDS: AMLODIPINE 5 MG TAB PO SCH (09:00)
[2022-11-14] MEDS: FUROSEMIDE 40 MG/4 ML VIAL IV SCH ×2 (09:00→16:25)
[2022-11-14] MEDS: PANTOPRAZOLE 40MG TABLET PO SCH (09:00)
[2022-11-14] MEDS: FENOFIBRATE 160 MG TAB PO SCH (09:00)
[2022-11-14] MEDS: PARoxetine HCL 10 MG TAB PO SCH (09:00)
--- NOTE | 2022-11-14 09:51 | RAD REPORT ---
EXAM DESCRIPTION: NM - Vent Perfusion VQ Scan - 11/14/2022 9:38 am CLINICAL HISTORY: R/O PE Chest pain, shortness of breath COMPARISON: Chest Single View dated 11/12/2022 TECHNIQUE: Perfusion only scan was performed due to shortage of Xenon gas with Tc-MAA IV given at 6. 6 millicuries dosage and imaging in multiple projections. Examination is correlated with recent chest radiograph. FINDINGS: There is diminished ventilation affecting left lung. There is no significant perfusion def ects suspected. IMPRESSION: Relatively low probability of a pulmonary embolism. No significant perfusion defect is s een. The study is limited by lack of a ventilation portion performed. Ventilation imaging could not be performed due to shortage of the Xenon gas.
[2022-11-14 10:41] LABS: Protime INR 1.13
[2022-11-14] MEDS ORDERED: HEPA 1000U/500MLS 2,000 UNIT/1,000 ML BAG IV ONE (11:47)
[2022-11-14] MEDS ORDERED: LIDOCAINE 1% 20 ML MDV ONE (11:48)
[2022-11-14] MEDS ORDERED: NA CHLORIDE 0.9% 500 ML ONE (12:33)
[2022-11-14] MEDS ORDERED: MIDAZOLAM HCL 2 MG/2 ML INJ ONE (12:37)
[2022-11-14] MEDS ORDERED: FENTANYL CITR 100 MCG/2 ML ONE (12:37)
[2022-11-14] MEDS ORDERED: HEPARIN 5000 UNIT/ML 1 ML VIAL ONE (12:37)
[2022-11-14] MEDS ORDERED: HEPARIN 10,000 UNIT/10 ML VIAL IV ONE (12:38)
[2022-11-14] MEDS ORDERED: VERAPAMIL HCL 10 MG/4 ML VIAL IV ONE (12:38)
[2022-11-14] MEDS ORDERED: ATROPINE SULF 1 MG/10 ML SYR IV ONE (12:38)
[2022-11-14] MEDS ORDERED: NITROGLYCERIN 100 MCG/ML SYR (for cath lab use only) IV ONE (12:38)
[2022-11-14] MEDS ORDERED: NITROGLYCERIN/D5W 25 MG/250 ML BTL IV ONE (12:42)
--- NOTE | 2022-11-14 14:25 | PN ---
Date of Progress Note: 11/14/2022 Subjective: Seen by bedside. Clinically, she is doing well, breathing much better. Review of Systems: No chest pain, shortness of breath, orthopnea, cough. No nausea, vomiting, diarrhea. All other syst ems reviewed and they were negative. Lower extremity edema is improved. Physical Examination: Vital Signs: Reviewed. Head and Neck: Pupils are equal, reactive to light. Intact eye movements. Mild JVD. Lungs: Clear to auscultation bilaterally. No rhonchi, wheezing, or crackles. No accessory muscle u se. Heart: Irregular. No extra sounds. Abdomen: Soft, nontender. Bowel sounds positive. No organomegaly. No masses or hernia. No rigidi ty or rebound. Extremities: Trace edema bilaterally. No clubbing or cyanosis. Intact pulses. Skin: No rash. Neurologic: Alert, awake, oriented x3. No acute focal deficits appreciated. Lymph Nodes: No cervical or axillary lymphadenopathy. Investigations: Labs were reviewed. Assessment And Recommendations: 1.Acute systolic heart failure with low ejection fraction, status post coronary angiogram today and she has mild coronary artery disease. Her BUN and creatinine are going up, so switch her to oral Las ix and monitor BUN and creatinine. 2.Elevated troponin. This is demand ischemia. She has mild coronary artery disease by coronary ang iogram. Lovenox can be stopped and switch her to the oral anticoagulant like Eliquis or Xarelto. 3.History of deep vein thrombosis. Resume oral anticoagulant as above and discontinue Lovenox. SR/MODL Voice ID: [id number] Report ID: [id number]
--- NOTE | 2022-11-14 14:34 | OP ---
Date of Procedure: 11/14/2022 Surgeon: CALVIN HARDY Procedures Performed: 1.Selective coronary angiogram. 2.Left heart catheterization. Indication: New onset systolic heart failure with elevated troponin. Access: Right radial artery 6-Vietnamese closed with TR band. However, could not get into the heart due to spasm, so switched to right femoral artery 6-Vietnamese, closed with 6-Vietnamese Angio-Seal. Complications: None. Bleeding: Less than 20 mL. Anesthesia: Total sedation time was 30 minutes, used fentanyl and versed. Description Of Procedure: After risks, benefits, alternatives were explained, patient agreed to the procedure and signed informed consent. Patient was brought in the cardiac catheterization laboratory , prepped and draped in usual sterile fashion. Then, I accessed right radial artery using pediatric micropuncture kit and placed a 6-Vietnamese Slender sheath. Then, tried to take a 5-Vietnamese Vandiver into th e aortic root. However, due to spasm, could not take it up, so I abandoned that access and using chiqui ropuncture kit and ultrasound guidance and fluoroscopy, I accessed the right femoral artery, placed a 6-Vietnamese [place] sheath and took a 6-Vietnamese JL4 catheter into the aortic root, engaged left main, t ook standard views and then exchanged for 6-Vietnamese JR4 catheter and engaged the RCA, took standard vi ews and then the catheter was advanced over the wire into the LV, measured the LVEDP. Pullback did n ot record any gradient. Then, we removed the catheter and the groin sheath was removed and placed 6- Vietnamese Angio-Seal for closure with good hemostasis. We then removed the radial access sheath and terry hunter TR band with good hemostasis. Findings: 1.Left main is short and normal. 2.LAD: It is a moderate-size vessel with diffuse 30% stenosis in the proximal to mid segment. [place] clarisa, the diagonal branches are normal. 3.Left circumflex: Very large and dominant large OM branches and dominant vessel. No significant d isease. 4.RCA: Very small, non-dominant and no disease. 5.Elevated LVEDP at 24 mmHg. Conclusion: 1.Mild nonobstructive coronary artery disease. 2.Elevated LVEDP. Recommendations: 1.Cardiac risk factor modification and medical management of coronary artery disease. 2.Continue diuretics and low-salt diet. SR/MODL Voice ID: [id number] Report ID: [id number]
[2022-11-14] MEDS: ATORVASTATIN 10 MG TAB PO SCH (19:56)
--- NOTE | 2022-11-14 20:28 | P.PN ---
Subjective Date of Service: 11/14/22 Chief Complaint: Chest pain No acute events overnight. She reports that her shortness of breath is improving gradually. Her lower extremity edema and orthopnea are also improving. Plan is for [facility] today. Review of Systems 10-point ROS is otherwise unremarkable Respiratory: Shortness of Breath Cardiovascular: Orthopnea, Edema Physical Examination - Vital Signs Temperature: 97.8 F Blood Pressure: 169/77 Pulse: 63 Respirations: 16 Pulse Ox (%): 97 Assessment And Plan - Plan # Non-ST Segment Elevation Myocardial Infarction # History of Coronary Artery Disease # Hypertension # Dyslipidemia - Evaluation thus far: - EKG: no reported STEMI criteria, trend - Serial troponin: 103.7 -> 426.0 -> 451.4 -> 393.2 - Transthoracic echocardiogram = "1. mildly depressed left ventricular ejection fraction 35-40%. 2. wall motion as above. 3. mitral annular calcification with mild mitral regurgitation. 4. mild tricuspid regurgitation." - Chest x-ray = "these findings probably indicate CHF" - V/Q scan = pending - Management plan: - Consult Cardiology and spoke with Dr. Chaidez - recommendations appreciated - Plans for [facility] today - Continue aspirin, atorvastatin, carvedilol, enoxaparin - Continue home amlodipine, fenofibrate - Consider starting SIVAKUMAR-inhibitor/ARB once creatinine improves # Acute on Chronic Decompensated Systolic Congestive Heart Failure with Reduced Ejection Fraction (LVEF 35-40 %) - Consult Cardiology and spoke with Dr. Chaidez - recommendations appreciated - NT-Pro BNP = 85,069 - Transthoracic echocardiogram = "1. mildly depressed left ventricular ejection fraction 35-40%. 2. wall motion as above. 3. mitral annular calcification with mild mitral regurgitation. 4. mild tricuspid regurgitation." - Diuresis with IV furosemide - Continue home carvedilol - Daily weights - Strict I/O - Cardiac diet, 1.5 L fluid restriction, 2 g Na restriction # Depression - Continue home paroxetine # Gastroesophageal Reflux Disease - Continue home pantoprazole # Splenic Lesion (3.3 cm) Per radiology report: "3.3 cm rounded hypodense lesion is present in the spleen, probably a cyst or hemangioma." - Follow-up with PCP Hussein Meléndez M.D.
[2022-11-15] MEDS: ALBUTEROL 2.5 MG/3 ML NEB SOL NEB SCH ×4 (01:30→20:00)
[2022-11-15] MEDS: IPRATROPIUM BROM 0.5MG/2.5ML NEB SCH ×4 (01:30→20:00)
[2022-11-15 06:18] LABS: Magnesium 1.8 mg/dL (1.6-2.4); Potassium 3.6 mmol/L (3.5-5.1)
[2022-11-15] MEDS: INSULIN -REGULAR HUMAN 50 UNIT/0.5 ML ML SQ SCH ×4 (07:30→21:00)
[2022-11-15] MEDS: ASPIRIN 81 MG CHEWABLE TABLET PO SCH (08:32)
[2022-11-15] MEDS: carvediloL 12.5 MG TAB PO SCH ×2 (08:32→17:11)
[2022-11-15] MEDS: FUROSEMIDE 40 MG/4 ML VIAL IV SCH ×2 (08:33→17:11)
[2022-11-15] MEDS: OXYBUTYNIN ER 5 MG TAB PO SCH (08:33)
[2022-11-15] MEDS: AMLODIPINE 5 MG TAB PO SCH (08:34)
[2022-11-15] MEDS: ENOXAPARIN 60 MG/0.6 ML SQ SCH (08:34)
[2022-11-15] MEDS: PANTOPRAZOLE 40MG TABLET PO SCH (08:35)
[2022-11-15] MEDS: PARoxetine HCL 10 MG TAB PO SCH (08:35)
[2022-11-15] MEDS: FENOFIBRATE 160 MG TAB PO SCH (08:35)
[2022-11-15] MEDS ORDERED: MAGNESIUM SULFATE 1 gm IVPB 1 GM/100 ML BAG IV ONE (09:00)
[2022-11-15] MEDS ORDERED: POTASSIUM CL SA 10 MEQ TAB PO ONE (09:00)
--- NOTE | 2022-11-15 19:31 | P.PN ---
Subjective Date of Service: 11/15/22 Chief Complaint: Chest pain No acute events overnight. She reports that her shortness of breath, lower extremity edema, and orthopnea is improving gradually, but still present. C was with nonobstructive coronary artery disease, no PCI was required. Review of Systems 10-point ROS is otherwise unremarkable Respiratory: Shortness of Breath Cardiovascular: Orthopnea, Edema Physical Examination - Vital Signs Temperature: 97.5 F Blood Pressure: 120/62 Pulse: 65 Respirations: 14 Pulse Ox (%): 100 Assessment And Plan - Plan - Physical Exam General: Alert, In no apparent distress, Oriented x3 HEENT: Atraumatic, EOMI, Sclerae nonicteric Neck: JVD not distended Respiratory: Crackles/rales (minimal bibasilar) Cardiovascular: Normal pulses, Regular rate/rhythm, No gallops, No rubs, No murmurs, Edema (1-2+ BLE) Gastrointestinal: Normal bowel sounds, Soft and benign, Non-distended Musculoskeletal: No clubbing Integumentary: No rashes Neurological: Normal speech, Cranial nerves 3-12 intact, Normal affect # Non-ST Segment Elevation Myocardial Infarction # History of Coronary Artery Disease # Hypertension # Dyslipidemia - Evaluation thus far: - EKG: no reported STEMI criteria, trend - Serial troponin: 103.7 -> 426.0 -> 451.4 -> 393.2 - Transthoracic echocardiogram = "1. mildly depressed left ventricular ejection fraction 35-40%. 2. wall motion as above. 3. mitral annular calcification with mild mitral regurgitation. 4. mild tricuspid regurgitation." - Chest x-ray = "these findings probably indicate CHF" - V/Q scan = "relatively low probability of a pulmonary embolism. No significant perfusion defect is seen. The study is limited by lack of a ventilation portion performed. Ventilation imaging could not be performed due to shortage of the Xenon gas." - Management plan: - Consult Cardiology and spoke with Dr. Chaidez - recommendations appreciated - [facility] (11/14/2022) = non-obstructive coronary artery disease - Continue aspirin, atorvastatin, carvedilol, enoxaparin - Continue home amlodipine, fenofibrate - Consider starting SIVAKUMAR-inhibitor/ARB once creatinine improves # Acute on Chronic Decompensated Systolic Congestive Heart Failure with Reduced Ejection Fraction (LVEF 35-40 %) - Consult Cardiology and spoke with Dr. Chaidez - recommendations appreciated - NT-Pro BNP = 85,069 - Transthoracic echocardiogram = "1. mildly depressed left ventricular ejection fraction 35-40%. 2. wall motion as above. 3. mitral annular calcification with mild mitral regurgitation. 4. mild tricuspid regurgitation." - Diuresis with IV furosemide - plan to transition to PO tomorrow for possible discharge pending respiratory symptoms - Continue home carvedilol - Daily weights - Strict I/O - Cardiac diet, 1.5 L fluid restriction, 2 g Na restriction # Depression - Continue home paroxetine # Gastroesophageal Reflux Disease - Continue home pantoprazole # Splenic Lesion (3.3 cm) Per radiology report: "3.3 cm rounded hypodense lesion is present in the spleen, probably a cyst or hemangioma." - Follow-up with PCP Hussein Meléndez M.D.
--- NOTE | 2022-11-15 19:56 | PN ---
Date of Progress Note: 11/15/2022 Subjective: Seen by bedside. She is doing well, breathing significantly better. Review of Systems: No chest pain, shortness of breath, orthopnea, cough, nausea, or diarrhea. No dysuria, polyuria, or urinary urgency. All other systems reviewed and they were negative. Physical Examination: Vital Signs: Reviewed. Head And Neck: Pupils are equal and reactive to light. Intact eye movements. No JVD. No cervical lymphadenopathy. Neck is supple. Thyroid is not enlarged. Lungs: Clear to auscultation bilaterally. No rhonchi, wheezing, or crackles. No accessory muscle u se. Heart: Irregular. No extra sounds. Abdomen: Soft, nontender. Bowel sounds positive. No organomegaly. No masses or hernia. No rigidi ty or rebound. Extremities: No edema, clubbing, or cyanosis. Intact pulses. Skin: No rashes. Neurologic: Alert, awake, and oriented x3. No acute focal deficits appreciated. Lymph Nodes: No cervical or axillary lymphadenopathy. Investigations: Labs reviewed. Assessment And Recommendation: 1.[id number]-fm-[id number] systolic heart failure exacerbation. She appears to be euvolemic. Recommend to change to oral Lasix. In anticipation for discharge tomorrow. 2.Elevated troponin due to demand. Coronary angiogram without significant disease. 3.Systolic heart failure. Recommend to start her on Entresto low dose and titrate up as an outpatie nt. SR/MODL Voice ID: [id number] Report ID: [id number]
[2022-11-15] MEDS: ATORVASTATIN 10 MG TAB PO SCH (20:22)
[2022-11-16] MEDS: IPRATROPIUM BROM 0.5MG/2.5ML NEB SCH ×2 (01:55→08:55)
[2022-11-16] MEDS: ALBUTEROL 2.5 MG/3 ML NEB SOL NEB SCH ×2 (01:55→08:55)
[2022-11-16 06:34] LABS: Magnesium 1.7 mg/dL (1.6-2.4); Potassium 3.4 mmol/L (3.5-5.1)
[2022-11-16] MEDS: INSULIN -REGULAR HUMAN 50 UNIT/0.5 ML ML SQ SCH (07:30)
[2022-11-16 08:22] VITALS: TEMP 98.5
[2022-11-16] MEDS: ASPIRIN 81 MG CHEWABLE TABLET PO SCH (08:29)
[2022-11-16] MEDS: ENOXAPARIN 60 MG/0.6 ML SQ SCH (08:29)
[2022-11-16] MEDS: AMLODIPINE 5 MG TAB PO SCH (08:30)
[2022-11-16] MEDS: PARoxetine HCL 10 MG TAB PO SCH (08:30)
[2022-11-16] MEDS: FENOFIBRATE 160 MG TAB PO SCH (08:30)
[2022-11-16] MEDS: PANTOPRAZOLE 40MG TABLET PO SCH (08:30)
[2022-11-16] MEDS: OXYBUTYNIN ER 5 MG TAB PO SCH (08:31)
[2022-11-16] MEDS: carvediloL 12.5 MG TAB PO SCH (08:31)
[2022-11-16 08:32] VITALS: BP 163/71
--- NOTE | 2022-11-16 08:59 | P.DS ---
Admission Date: 11/12/22 Discharge Date: 11/16/22 Disposition: ROUTINE DISCHARGE Discharge Condition: GOOD Reason for Admission: Chest pain Consultations: 1. Cardiology Procedures: - 11/14/2022 - Left Cardiac Catheterization Hospital Course: DIAGNOSES: # Non-ST Segment Elevation Myocardial Infarction # Acute on Chronic Decompensated Systolic Congestive Heart Failure with Reduced Ejection Fraction (LVEF 35-40 %) # KDIGO Stage I Acute Kidney Injury on Chronic Kidney Disease Stage III # Coronary Artery Disease # Hypertension # Dyslipidemia # Depression # Gastroesophageal Reflux Disease # Splenic Lesion (3.3 cm) HOSPITAL COURSE: Ms. Lucille Padron is a pleasant 82-year-old female with a past medical history significant for coronary artery disease, hypertension, chronic congestive heart failure with reduced ejection fraction, dyslipidemia, gastroesophageal reflux disease, depression who was admitted to the [facility] on 11/12/2022 for chest pain and shortness of breath. She was admitted to the Medicine service. Upon further evaluation, she was found to have an acute on chronic decompensated systolic congestive heart failure exacerbation as well as a non-ST segment elevation myocardial infarction. She was treated with IV diuretics, with significant improvement in her symptoms. Cardiology was consulted and she was evaluated by Dr. Chaidez. She underwent a left heart catheterization, which revealed nonobstructive coronary artery disease. Today, she was transitioned to p.o. furosemide. Cardiology has cleared her for discharge home with outpatient follow-up. On 11/16/2022, she was seen on morning rounds and deemed medically stable for discharge. She was discharged with instructions to schedule follow-up appointments with her PCP (Dr. Henson), with her Eyewear Consultant ([facility]), and with Cardiology (Dr. Chaidez). She was provided prescriptions for furosemide, sacubutril-valsartan, and apixaban (reducing home dose from 5 mg to 2.5 mg). She and her daughter were given the opportunity to ask questions and reported no further questions. Furthermore, all questions were answered to the best of my ability. A copy of this discharge summary will be sent to the above providers to facilitate continuity of care. Today, I personally spent 35 minutes on her case, of which greater than 50% of the time was spent in patient education, counseling, and coordination of care as described above. - Physical Exam General: Alert, In no apparent distress, Oriented x3 HEENT: Atraumatic, Sclerae nonicteric Neck: JVD not distended Respiratory: Clear to auscultation without wheezes, rhonchi, or rales Cardiovascular: Normal pulses, Regular rate/rhythm, No gallops, No rubs, No murmurs, Edema (1+ BLE) Gastrointestinal: Normal bowel sounds, Soft and benign, Non-distended Musculoskeletal: No clubbing Integumentary: No rashes Neurological: Normal speech, Normal affect Vital Signs/Physical Exam: Temp Pulse Resp BP Pulse Ox 98.5 F 73 16 163/71 H 92 11/16/22 08:00 11/16/22 08:31 11/16/22 08:00 11/16/22 08:31 11/16/22 08:00 Laboratory Data at Discharge: WBC 6.80 K/uL (4.3-10.9) 11/13/22 02:51 Hgb 8.5 g/dL (12.0-15.0) L D 11/13/22 02:51 Hct 24.9 % (36.0-45.0) L 11/13/22 02:51 Plt Count 209 K/uL (152-406) D 11/13/22 02:51 PT 12.4 SECONDS (9.5-12.5) 11/14/22 10:23 INR 1.13 11/14/22 10:23 APTT 30.2 SECONDS (24.3-36.9) 11/14/22 10:23 Sodium 138 mmol/L (136-145) 11/16/22 05:46 Potassium 3.4 mmol/L (3.5-5.1) L 11/16/22 05:46 BUN 31 mg/dL (7-18) H 11/16/22 05:46 Creatinine 1.61 mg/dL (0.55-1.02) H 11/16/22 05:46 Glucose 89 mg/dL (74-106) 11/16/22 05:46 Phosphorus 3.1 mg/dL (2.5-4.9) 11/12/22 15:07 Magnesium 1.7 mg/dL (1.6-2.4) 11/16/22 05:46 Total Bilirubin 0.4 mg/dL (0.2-1.0) 11/12/22 09:40 AST 23 U/L (15-37) 11/12/22 09:40 ALT 18 U/L (13-56) 11/12/22 09:40 Alkaline Phosphatase 47 U/L (45-117) 11/12/22 09:40 Home Medications: Aspirin [Aspirin EC 81 MG] 81 mg PO DAILY 02/17/19 Fenofibrate,Micronized [Fenofibrate] 200 mg PO DAILY 02/17/19 PARoxetine HCl [Paroxetine HCl] 40 mg PO DAILY 02/17/19 Pravastatin Sodium 80 mg PO DAILY 02/17/19 carvediloL [Carvedilol] 12.5 mg PO BID 02/17/19 Pantoprazole Sodium [Protonix] 40 mg PO DAILY #30 tablet. 02/20/19 Amlodipine [Norvasc*] 5 mg PO DAILY 10/11/22 Oxybutynin Chloride [Oxybutynin Chloride ER] 5 mg PO DAILY 10/11/22 Apixaban [Eliquis *] 2.5 mg PO BID #60 tab 11/16/22 Furosemide [Lasix*] 40 mg PO DAILY #30 tab 11/16/22 Sacubitril/Valsartan [Entresto 24 mg-26 mg Tablet] 1 tab PO BID #60 tab 11/16/22 New Medications: Apixaban [Eliquis *] 2.5 mg PO BID #60 tab Sacubitril/Valsartan [Entresto 24 mg-26 mg Tablet] 1 tab PO BID #60 tab Furosemide [Lasix*] 40 mg PO DAILY #30 tab Physician Discharge Instructions: 1. Please call and schedule a follow-up appointment with your PCP (Dr. Henson) in 3-5 days - You will need to have him follow-up on the spot on your spleen 2. Please call and schedule a follow-up appointment with Cardiology (Dr. Chaidez) in 5-7 days 3. Please call and schedule a follow-up appointment with your Eyewear Consultant at [facility] For your heart failure, you have been started on Lasix and Entresto. Additionally, your Eliquis dose has been reduced from 5 mg to 2.5 mg. A new prescription was sent to your pharmacy. Followup: Isaias Henson MD [Primary Care Provider] - (call to schedule an appointment) Dae Chaidez MD [ACTIVE - CAN ADMIT] - (call to schedule an appointment) Time spent managing pt's care (in minutes): 35
[2022-11-16] MEDS ORDERED: FUROSEMIDE 40 MG TABLET PO SCH (09:00)
[2022-11-16] MEDS ORDERED: SACUBITRIL/VALSARTAN 24/26 MG TAB PO SCH (09:00)
[2022-11-16] MEDS ORDERED: POTASSIUM CL SA 10 MEQ TAB PO ONE (09:00)
[2022-11-16] MEDS ORDERED: MAGNESIUM SULFATE 1 gm IVPB 1 GM/100 ML BAG IV ONE (09:00)
[2022-11-16] MEDS ORDERED: APIXABAN 2.5 MG TABLET PO SCH (09:00)
[2022-11-16 09:34] VITALS: O2SAT 98
== END 2022-11-16 11:29 | disposition home or self-care (01) | DRG 280 ==
LOC: ER 09:18 → ERHOLD 12:22 → 2ND 13:24
PROVIDERS: ADMIT Internal Medicine; ATTEND Internal Medicine
PROC: 5A09457 Assistance with Respiratory Ventilation, 24-96 Consecutive Hours, Continuous Positive Airway Pressure (ICD-10-PCS; 2022-11-12)
PROC: 4A023N7 Measurement of Cardiac Sampling and Pressure, Left Heart, Percutaneous Approach (ICD-10-PCS; principal; 2022-11-14)
PROC: B2111ZZ Fluoroscopy of Multiple Coronary Arteries using Low Osmolar Contrast (ICD-10-PCS; 2022-11-14)
DX: I13.0 Hypertensive heart and chronic kidney disease with heart failure and stage 1 through stage 4 chronic kidney disease, or unspecified chronic kidney disease (principal); I50.23 Acute on chronic systolic (congestive) heart failure; I21.A1 Myocardial infarction type 2; J96.01 Acute respiratory failure with hypoxia; I48.20 Chronic atrial fibrillation, unspecified; N17.9 Acute kidney failure, unspecified; N18.30 Chronic kidney disease, stage 3 unspecified; E11.22 Type 2 diabetes mellitus with diabetic chronic kidney disease; E78.5 Hyperlipidemia, unspecified; K21.9 Gastro-esophageal reflux disease without esophagitis; E83.42 Hypomagnesemia; N32.81 Overactive bladder; F32.A Depression, unspecified; D73.89 Other diseases of spleen; I08.1 Rheumatic disorders of both mitral and tricuspid valves; I25.10 Atherosclerotic heart disease of native coronary artery without angina pectoris; F17.210 Nicotine dependence, cigarettes, uncomplicated; Z60.2 Problems related to living alone; Z79.01 Long term (current) use of anticoagulants; Z90.49 Acquired absence of other specified parts of digestive tract; Z79.82 Long term (current) use of aspirin; Z79.84 Long term (current) use of oral hypoglycemic drugs; Z86.718 Personal history of other venous thrombosis and embolism; Z90.711 Acquired absence of uterus with remaining cervical stump; Z79.899 Other long term (current) drug therapy; Z20.822 Contact with and (suspected) exposure to COVID-19
CPT/HCPCS: 36415; 71045; 74150; 76937; 78582; 80048; 80076; 82947; 83735; 83880; 84100; 84132; 84484; 85025; 85610; 85730; 87811; 93005; 93306; 93458; 94640; 94660; 96365; 96375; 99285; A9540; C1760; C1893; G0269; J0461; J1644; J1650; J1815; J1940; J2250; J2405; J3010; J3475; J7040; J7613; J7644; Q9966

== ENCOUNTER 2022-12-16 11:32 | Inpatient (IN) | payer OTHER ==
--- OUTSIDE RECORDS SUMMARY | 2022-12-16 11:43 | XMS REPORT | Continuity of Care Document ---
:1940 Author Organization [facility] t Address [address] [place] [address] Care Team Providers Name Role Phone ISAIAS SERRATO Primary Care Physician Unavailable VINCE LOPEZ Attending Clinician Unavailable ISAIAS SERRATO Attending Clinician Unavailable Isaias Serrato MD Attending Clinician Alexandra Phillip RN Attending Clinician Unavailable TISH BENNETT Attending Clinician Unavailable Eddie Win DO Attending Clinician Tish Bennett DO Attending Clinician Jaskaran oFx MD Attending Clinician JASKARAN FOX Attending Clinician Unavailable Doctor Unassigned, [place] Attending Clinician Unavailable Man Corado RN Attending Clinician Unavailable CHRIS TILLMAN Attending Clinician Unavailable Chris Tillman MD Attending Clinician Lab, Ang - Db Attending Clinician Unavailable EFFIE VERAS Attending Clinician Unavailable Queenie Mcdonald Attending Clinician Vince Lopez MD Attending Clinician Abdiel Martínez CRNA Attending Clinician Michael Lema MD Attending Clinician Pob, Adc Lab Main Attending Clinician Unavailable QUEENIE ARREDONDO Attending Clinician [...] Expiration Date Marlene joy MEDICARE PART A [id number] 2004 \\T\\ B 00:00:00 Problems Condition Condition Condition Status Onset Resolution Last Treating Co mments Source Name Details Category Date Date Treatment Clinician Date Hypotensio Hypotensio Disease Active U nivers n, n, 1-05 ity of unspecif[place] 00 Medical hypotensio hypotensio Br anch n type n type Colitis Colitis Disease Active 2021-11 Univers due to due to 2-08 ity of Clostridio Clostridio 00:[place] 00 Medical difficile difficile Bran ch Essential Essential Disease Active Uni vers hypertensi hypertensi 08-18 it y of on on 00:00: [place] [address] [place] [address] Hyperlipid Hyperlipid Disease Active U nivers emia, [...] Active Univers ALLERGIE Class ity of [facility] [place] [facility] Social History Social Habit Start Date Stop Date Quantity Comments Source History of tobacco Passive smoker Un iversity of use [place] [facility] History SDOH Social Unive rsity of Connections Get [place] [facility] Together [facility] History SDOH Social Unive rsity of Connections Jain [place] [facility] History SDOH Social Unive rsity of Connections [place] [facility] Membership [facility] History SDOH Social Unive rsity of Connections [place] [facility] History SDOH Food 2022-11-29 2022-11-29 1 Univers ity of Worry 00:00:00 00:00:00 [place] [facility] History SDOH Food 2022-11-29 2022-11-29 1 Univers ity of Scarcity 00:00:00 00:00:00 [place] [facility] History SDOH 2022-11-29 2022-11-29 2 University o f Transport Med 00:00:00 00:00:00 [place] [facility] History SDOH 2022-11-29 2022-11-29 2 University o f Transport Non-Med 00:00:00 00:00:00 [place] [facility] History SDOH 2022-11-29 2022-11-29 1 University o f Alcohol Frequency 00:00:00 00:00:00 [place] [facility] History SDOH 2022-11-29 2022-11-29 0 University o f Alcohol Std Drinks 00:00:00 00:00:00 [place] [facility] History SDOH 2022-11-29 2022-11-29 1 University o f Alcohol Binge 00:00:00 00:00:00 [place] [facility] History SDOH Social 2022-11-29 2022-11-29 1 Unive rsity of Connections Phone 00:00:00 00:00:00 [place] [facility] History SDOH Social 2022-11-29 2022-11-29 4 Unive rsity of Connections Living 00:00:00 00:00:00 [place] [facility] History SDOH 2022-11-29 2022-11-29 5 University o f Financial 00:00:00 00:00:00 [place] [facility] Exposure to 2022-11-18 2022-11-28 Not sure University of SARS-CoV-2 (event) 00:00:00 11:02:00 [place] [facility] Alcohol intake 2022-11-28 2022-11-28 Current drinker Unive rsity of 00:00:00 00:00:00 of alcohol [place] [facility] (finding) [facility] Tobacco use and 2022-10-31 2022-10-31 Smokeless Universit y of exposure 00:00:00 00:00:00 tobacco non-user [facility] dical [place] Sex Assigned At [birth year] Universit y of 00:00:00 00:00:00 [facility] Smoking Status Start Date Stop Date Source Never smoked tobacco [facility] Medications Ordered Filled Start Stop Current Ordering Indication Dosage Frequency Signature Comments Components Source Medication Medication Date Date Medication? Clinician (SIG) Name Name HYDROcodone Yes [id number] 1{tbl} Take 1 Un kat -acetaminop 1-19 tablet by ity of hen 5-325 00:00: mouth 2 [place] mg tablet (two) Medical times [place] daily as needed for Pain (scale 4-6). Indication s: chronic pain acidophilus Yes [id number] 1g Take 1 Univers 100 million 1-10 tablet by ity of cell tablet 00:00: [place] in [place] 00 the Medical morning Branch and 1 tablet in the evening. acidophilus Yes [id number] 1g Take 1 Univers 100 million 1-10 tablet by ity of cell tablet 00:00: mouth in [place] 00 the Medical morning Branch and 1 tablet in the evening. acidophilus Yes [id number] 1g Take 1 Univers 100 million 1-10 tablet by ity of cell tablet 00:00: mouth in [place] 00 the Medical morning Branch and 1 tablet in the evening. apixaban 2022- Yes 1358 2.5mg Take 1 Unive rs 2.5 mg 1-10 02-10 tablet by ity of tablet 00:00: 05:59 mouth in [place] 00 :00 the Medical morning Branch and 1 tablet in the evening. Do all this for 30 days. Indication s: atrial fibrillati on apixaban 2022- Yes 1358 2.5mg Take 1 Unive rs 2.5 mg 1-10 02-10 tablet by ity of tablet 00:00: 05:59 mouth in [place] 00 :00 the Medical morning Branch and 1 tablet in the evening. Do all this for 30 days. Indication s: atrial fibrillati on apixaban 2022- Yes 1358 2.5mg Take 1 Unive rs 2.5 mg -08 25-10 tablet by ity of tablet 00:00: 05:59 mouth in [place] 00 :00 the Medical morning Branch and 1 tablet in the evening. Do all this for 30 days. Indication s: atrial fibrillati on dicyclomine 2022- Yes [id number] 10mg Take 1 Univers 10 mg 12-03-21 capsule by ity of capsule 00:00: 05:59 mouth 4 [place] 00 :00 ([facility]) Medical times Branch daily for 10 days. dicyclomine 2022- Yes [id number] 10mg Take 1 Univers 10 mg 12-03- capsule by ity of capsule 00:00: 05:59 mouth 4 [place] 00 :00 ([facility]) Medical times Branch daily for 10 days. dicyclomine 2022- Yes [id number] 10mg Take 1 Univers 10 mg 12-03 capsule by ity of capsule 00:00: 05:59 mouth 4 [place] 00 :00 ([facility]) Medical times Branch daily for 10 days. vancomycin 2022- Yes [id number] 125mg Take 1 Univers 125 mg -08 24-17 capsule by ity of capsule 00:00: 05:59 mouth 4 [place] 00 :00 ([facility]) Medical times Branch daily for 6 days. vancomycin 2022- Yes [id number] 125mg Take 1 Univers 125 mg -08 24-17 capsule by ity of capsule 00:00: 05:59 mouth 4 [place] 00 :00 ([facility]) Medical times Branch daily for 6 days. levoFLOXaci 2022- Yes [id number] 500mg Take 1 Univers n 500 mg 1-10 -15 tablet by ity o f tablet 00:00: 05:59 mouth [place] 00 :00 every 24 Medical (twenty- Branch ur) hours for 4 days. levoFLOXaci 2022- Yes [id number] 500mg Take 1 Univers n 500 mg 1-10 -15 tablet by ity o f tablet 00:00: 05:59 mouth [place] 00 :00 every 24 Medical ([facility] Branch ur) hours for 4 days. cefTRIAXone 2022- Yes 1000mg 1,000 mg, Univers (ROCEPHIN) 12-01 IV ity of 1,000 mg in 20:15: 20:14 Piggyback, [place] NaCl 0.9% 00 :00 Q24H ABX, Medic al (NS) 50 mL 5 doses, Branc h MINI-BAG First dose on 12/01/22 at 1415, Last dose on [place] 12/05/22 at 1415, Administer over 30 Minutes, 50 mL
Reas on for Anti-Infec tive: Documented Infection& lt;br>Docu mented Infection Site: Urine
D uration of Therapy: 7 days dicyclomine Yes 10mg 10 mg, Univ ers (BENTYL) 11-30 Oral, QID, ity o f capsule 10 22:00: First dose [place] 00 on [facility] 11/30/22 at Branch 1600, Until Discontinu ed, Routine KCL 2022-2022- No 40meq 40 mEq, Univers (KLOR-CON 11-30 Oral, ity of M20) tablet 15:30: 16:28 ONCE, 1 [place] 40 mEq 00 :00 dose, On Medical [facility] 11/30/22 Branch at 0930, Routine KCL 20 2022-2022- No 40meq 40 mEq, Univer s mEq/15 mL 11-29 Oral, ity of solution 40 16:00: 15:09 ONCE, 1 [place] mEq 00 :00 dose, On Medical Fri11/29/22 Branch at 1000, Routine magnesium 3-0 2022- No 2g 2 g, IV Univ ers sulfate in 11-29 Piggyback, it y of water 2 15:00: 17:45 Administer [place] gram/50 mL 00 :00 over 60 Medica l (4 %) Minutes, Branch infusion 2 Q1H, 2 g doses, First dose on Fri11/29/22 at 0900, Last dose on Fri11/29/22 at 1000, Routine vancomycin Yes 125mg 125 mg, Uni vers (VANCOCIN) 11-29 Oral, QID, ity of capsule 125 14:00: First dose [place] mg 00 on Fri [facility] 11/29/22 at Branch 0800, Until Discontinu ed, COURTNEY
Fa culty member approving Non-formul matt medication : MEGADC
Reason for non-formul matt use: SPECIFIC INDICATION FOR NONFORMULA RY PRODUCT
Reason for Anti-Infec tive: Empiric Therapy for Suspected Infection< br>Empiric Therapy Site: Abdominal< br>Duratio n of therapy: 5 days NaCl 0.9% 2022- No 1000mL at 75 Univ ers (NS) IV 1-06 01-07 mL/hr, IV ity of infusion 13:45: 01:44 Infusion, [place] 1,000 mL 00 :00 ONCE, 1 Medical dose, On Branch 11/29/22 at 0745, Routine Sliding 2022-0 Yes Subcutaneo Univ ers Scale 1-06 us, AC+HS, ity of Insulin-Reg 03:00: First dose [place] ular + Fsbg 00 on [place] Medica l Testing 11/28/22 at Branch 2100, Until Discontinu ed, Routine apixaban Yes 1358 2.5mg 2.5 mg, Unive rs (ELIQUIS) 06 Oral, BID, ity of tablet 2.5 02:00: First dose [place] mg 00 (after Medical last Branch modificati on) on [place] 11/28/22 at 2000, Until Discontinu ed, Routine
Indicatio ns: Non-Valvul ar Atrial Fibrillati on NaCl 0.9% 2022- No 1000mL at 75 Univ ers (NS) IV 1 01-06 mL/hr, IV ity of infusion 23:45: 00:04 Infusion, [place] 1,000 mL 00 :55 ONCE, 1 Medical dose, On Branch [place] 11/28/22 at 1745, Routine glucagon Yes 1mg 1 mg, Univers (GLUCAGEN 11-28 Intramuscu ity of DIAGNOSTIC 23:05: lar, PRN, [place] KIT) 30 Starting Medical injection 1 on [place] Branch 11/28/22 at 1705, Until Discontinu ed, COURTNEY, Blood Glucose < or = 70 mg/dL and patient is unable to swallow or has mental changes. dextrose 50 Yes 25mL 25 mL, Univ ers % in water 1-05 Slow IV ity of (D50W) 23:05: Push, PRN, [place] injection 30 Starting Medica l 25 mL on [place] Branch 11/28/22 at 1705, Until Discontinu ed, COURTNEY, Blood Glucose < or = 70 mg/dL and patient is unable to swallow or has mental status changes. acetaminoph Yes 650mg 650 mg, Un kat en 11-28 Oral, ity of (TYLENOL) 22:55: Q6HPRN, [place] tablet 650 46 Starting Medic al mg on [place] Branch 11/28/22 at 1655, Until Discontinu ed, Routine, Pain (scale 1-3) KCL 2022- No 40meq 40 mEq, Univers (KLOR-CON 11-28 Oral, ity of M20) tablet 18:45: 18:46 ONCE, 1 [place] 40 mEq 00 :00 dose, On Medical [place] 11/28/22 Branch at 1245, COURTNEY NaCl 0.9% 2022- No 1000mL at 999 Uni vers (NS) bolus 11-28 mL/hr, ity of infusion 18:00: 18:13 1,000 mL, [place] 1,000 mL 00 :00 IV Medical Infusion, Branch ONCE, 1 dose, On [place] 11/28/22 at 1200, STAT HYDROcodone 2021-11 Yes 274 1{tbl} Take 1 Un kat -acetaminop 2-19 [...] (scale 4-6). Indication s: chronic pain HYDROcodone 2021-11- No 2745 1{tbl} Take 1 U nivers -acetaminop 2-19 -19 tablet by it y of hen 5-325 00:00: 00:00 mouth 2 [place] mg tablet 00 :00 (two) Medical times Branch daily as needed for Pain (scale 4-6). Indication s: chronic pain hydrocortis 2021-11 Yes 25mg 25 mg, Univ ers one 2-11 Rectal, ity of (ANUSOL-HC) 02:00: BID, First [place] suppository 00 dose on Medic al 25 mg Sat Branch 11/02/22 at 2000, Until Discontinu ed, Routine ferrous 2021-11- Yes [id number] 325mg Take 1 U nivers sulfate 325 01-04 tablet by it y of mg (65 mg 00:00: 05:59 mouth in [place] iron) 00 :00 the Medical tablet morning Branch for 30 days. ferrous 2021-11- Yes [id number] 325mg Take 1 U nivers sulfate 325 01-04 tablet by it y of mg (65 mg 00:00: 05:59 mouth in [place] iron) 00 :00 the Medical tablet morning Branch for 30 days. ferrous 2021-11- Yes [id number] 325mg Take 1 U nivers sulfate 325 01-04 tablet by it y of mg (65 mg 00:00: 05:59 mouth in [place] iron) 00 :00 the Medical tablet morning Branch for 30 days. ferrous 2021-11- Yes [id number] 325mg Take 1 U nivers sulfate 325 01-04 tablet by it y of mg (65 mg 00:00: 05:59 mouth in [place] iron) 00 :00 the Medical tablet morning Branch for 30 days. ferrous 2021-11- Yes [id number] 325mg Take 1 U nivers sulfate 325 01-04 tablet by it y of mg (65 mg 00:00: 05:59 mouth in [place] iron) 00 :00 the Medical tablet morning Branch for 30 days. ferrous 2021-11- Yes [id number] 325mg Take 1 U nivers sulfate 325 01-04 tablet by it y of mg (65 mg 00:00: 05:59 mouth in [place] iron) 00 :00 the Medical tablet morning Branch for 30 days. ferrous 2021-11- Yes [id number] 325mg Take 1 U nivers sulfate 325 01-04 tablet by it y of mg (65 mg 00:00: 05:59 mouth in [place] iron) 00 :00 the Medical tablet morning Branch for 30 days. ferrous 2021-11- Yes [id number] 325mg Take 1 U nivers sulfate 325 01-04 tablet by it y of mg (65 mg 00:00: 05:59 mouth in [place] iron) 00 :00 the Medical tablet morning Branch for 30 days. ferrous 2021-11- Yes [id number] 325mg Take 1 U nivers sulfate 325 01-04 tablet by it y of mg (65 mg 00:00: 05:59 mouth in [place] iron) 00 :00 the Medical tablet morning Branch for 30 days. ferrous 2021-11- Yes [id number] 325mg Take 1 U nivers sulfate 325 01-04 tablet by it y of mg (65 mg 00:00: 05:59 mouth in [place] iron) 00 :00 the Medical tablet morning Branch for 30 days. ferrous 2021-11- Yes [id number] 325mg Take 1 U nivers sulfate 325 01-04 tablet by it y of mg (65 mg 00:00: 05:59 mouth in [place] iron) 00 :00 the Medical tablet morning Branch for 30 days. ferrous 2021-11- Yes [id number] 325mg Take 1 U nivers sulfate 325 01-04 tablet by it y of mg (65 mg 00:00: 05:59 mouth in [place] iron) 00 :00 the Medical tablet morning Branch for 30 days. ferrous 2021-11- Yes [id number] 325mg Take 1 U nivers sulfate 325 01-04 tablet by it y of mg (65 mg 00:00: 05:59 mouth in [place] iron) 00 :00 the Medical tablet morning Branch for 30 days. ferrous 2021-11- Yes [id number] 325mg Take 1 U nivers sulfate 325 01-04 tablet by it y of mg (65 mg 00:00: 05:59 mouth in [place] iron) 00 :00 the Medical tablet morning Branch for 30 days. ferrous 2021-11- Yes [id number] 325mg Take 1 U nivers sulfate 325 01-04 tablet by it y of mg (65 mg 00:00: 05:59 mouth in [place] iron) 00 :00 the Medical tablet morning Branch for 30 days. acidophilus 2021-11- Yes [id number] 1g Take 1 Univers 100 million 01-04 tablet by it y of cell tablet 00:00: 05:59 mouth in [place] 00 :00 the Medical morning Branch and 1 tablet in the evening. Do all this for 10 days. acidophilus 2021-11- Yes [id number] 1g Take 1 Univers 100 million 2-11 12-22 tablet by it y of cell tablet 00:00: 05:59 mouth in [place] 00 :00 the Medical morning Branch and 1 tablet in the evening. Do all this for 10 days. acidophilus 2021-11- Yes [id number] 1g Take 1 Univers 100 million 2-11 12-22 tablet by it y of cell tablet 00:00: 05:59 mouth in [place] 00 :00 the Medical morning Branch and 1 tablet in the evening. Do all this for 10 days. acidophilus 2021-11- Yes [id number] 1g Take 1 Univers 100 million 2-11 12-22 tablet by it y of cell tablet 00:00: 05:59 mouth in [place] 00 :00 the Medical morning Branch and 1 tablet in the evening. Do all this for 10 days. acidophilus 2021-11- Yes [id number] 1g Take 1 Univers 100 million 2-11 12-22 tablet by it y of cell tablet 00:00: 05:59 mouth in [place] 00 :00 the Medical morning [place] and 1 tablet in the evening. Do all this for 10 days. acidophilus 2021-11- Yes [id number] 1g Take 1 Univers 100 million 2-11 12-22 tablet by it y of cell tablet 00:00: 05:59 mouth in [place] 00 :00 the [facility] morning [place] and 1 tablet in the evening. Do all this for 10 days. acidophilus 2021-11- Yes [id number] 1g Take 1 Univers 100 million 2-11 12-22 tablet by it y of cell tablet 00:00: 05:59 mouth in [place] 00 :00 the [facility] morning [place] and 1 tablet in the evening. Do all this for 10 days. acidophilus 2021-11- Yes [id number] 1g Take 1 Univers 100 million 2-11 12-22 tablet by it y of cell tablet 00:00: 05:59 mouth in [place] 00 :00 the [facility] morning [place] and 1 tablet in the evening. Do all this for 10 days. vancomycin 2021-11- Yes [id number] 125mg Take 1 Univers 125 mg 2-11 12-19 capsule by ity of capsule 00:00: 05:59 mouth 4 [place] 00 :00 (four) Medical times [place] daily for 7 days. vancomycin 2021-11- Yes [id number] 125mg Take 1 Univers 125 mg 01-04 capsule by ity of capsule 00:00: 05:59 mouth 4 [place] 00 :00 (four) Medical times [place] daily for 7 days. vancomycin 2021-11- Yes [id number] 125mg Take 1 Univers 125 mg 01-04 capsule by ity of capsule 00:00: 05:59 mouth 4 [place] 00 :00 (four) Medical times [place] daily for 7 days. PARoxetine 2021-11 Yes [...] Sliding 2021-11 Yes Subcutaneo Univ ers Scale 01-02 us, TID ity of Insulin - 14:00: [...] Q1H, 2 g doses, First dose on [facility] 10/31/22 at 2200, Last dose on [facility] 10/31/22 at 2300, Routine KCL 2021-11- No 40meq 40 mEq, Univers (KLOR-CON 01-02 Oral, ity of M20) tablet 03:30: 04:19 ONCE, 1 [place] 40 mEq 00 :00 dose, On Medical [facility] 10/31/22 at 2130, Routine vancomycin 2021-11- Yes 125mg 125 mg, Un kat (FIRVANQ) 01-02 Oral, QID, ity of 50 mg/mL 02:30: 01:59 40 doses, [place] oral 00 :00 First dose Medical solution on [facility] 125 mg 10/31/22 at 2030, Last dose on [place] 11/10/22 at 1600, Routine
Reason for Anti-Infec tive: Documented Infection< br>Documen seth Infection Site: Abdominal< br>Duratio n of Therapy: 10 days carvediloL 2021-11 Yes 12.5mg 12.5 mg, U nivers (COREG) 2- Oral, BID, ity of tablet 12.5 02:00: First dose [place] mg 00 on [facility] 10/31/22 at [place] 1999, Until Discontinu ed, Routine apixaban 2021-11 Yes 1358 5mg 5 mg, Univers (ELIQUIS) 2- Oral, BID, ity of tablet 5 mg 02:00: First dose [place] 00 on [facility] 10/31/22 at [place] 1999, Until Discontinu ed, Routine
Indicatio ns: DVT/PE glucagon 2021-11 Yes 1mg 1 mg, Univers (GLUCAGEN 2 Intramuscu ity of DIAGNOSTIC 23:27: [place], PRN, [place] KIT) 12 Starting Medical injection 1 on [facility] Branch mg 10/31/22 at 1727, Until Discontinu ed, COURTNEY, Blood Glucose < or = 70 mg/dL and patient is unable to swallow or has mental changes. dextrose 50 2021-11 Yes 25mL 25 mL, Univ ers % in water 2-08 Slow IV ity of (D50W) 23:27: Push, PRN, [place] injection 12 Starting Medica l 25 mL on [place] Branch 10/31/22 at 1727, Until Discontinu ed, COURTNEY, Blood Glucose < or = 70 mg/dL and patient is unable to swallow or has mental status changes. HYDROcodone 2021-11 Yes 1{tbl} 1 tablet, Univers -acetaminop 2-08 Oral, ity of hen (NORCO) 23:27: Q6HPRN, [place] 10-325 mg 04 Starting Medica l tablet 1 on [facility] Branch tablet 10/31/22 at 1727, Until Discontinu ed, Routine, Pain (scale 7-10) acetaminoph 2021-11 Yes 650mg 650 mg, Un kat en 2-08 Oral, ity of (TYLENOL) 23:26: Q6HPRN, [place] tablet 650 58 Starting Medic al mg on [place] Branch 10/31/22 at 1726, Until Discontinu ed, Routine, Pain (scale 1-3) NaCl 0.9% 2021-11- No IV Univers (NS) 1000 2-08 12-09 Infusion, ity of mL + KCL 20 18:15: 03:16 at 150 [place] mEq 00 :55 mL/hr, Medical CONTINUOUS Branch , Starting on [place] 10/31/22 at 1215, Until [place] 10/31/22 at 2116, COURTNEY apixaban 2021-11 Yes 1358 TAKE 1 Univers [...] ON Indication s: atrial fibrillati on apixaban 2021-11- No 1358 TAKE 1 Univer s (ELIQUIS) 5 2-08 01-10 TABLET BY it y of mg tablet 00:00: 00:00 MOUTH [place] 00 :00 TWICE A Medical DAY TO Branch 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 metroNIDAZO 2021-11 Yes [id number] 500mg Take 1 Univers LE 500 mg 2-07 tablet by ity o f tablet 00:00: mouth [place] 00 every 8 Medical (eight) Branch hours. ciprofloxac 2021-11 Yes [id number] 500mg Take 1 Univers in HCl 500 2-07 tablet by ity of mg tablet 00:00: mouth [place] 00 the Medical morning Branch and 1 tablet in the evening. metroNIDAZO 2021-11 Yes [id number] 500mg Take 1 Univers LE 500 mg 2-07 tablet by ity o f tablet 00:00: mouth [place] 00 every 8 Medical (eight) Branch hours. ciprofloxac 2021-11 Yes [id number] 500mg Take 1 Univers in HCl 500 2-07 tablet by ity of mg tablet 00:00: mouth [place] 00 the Medical morning Branch and 1 tablet in the evening. metroNIDAZO 2021-11 Yes [id number] 500mg Take 1 Univers LE 500 mg 2-07 tablet by ity o f tablet 00:00: mouth [place] 00 every 8 Medical (eight) Branch hours. ciprofloxac 2021-11 Yes [id number] 500mg Take 1 Univers in HCl 500 2-07 tablet by ity of mg tablet 00:00: mouth [place] 00 the Medical morning Branch and 1 tablet in the evening. metroNIDAZO 2021-11 Yes [id number] 500mg Take 1 Univers LE 500 mg 2-07 tablet by ity o f tablet 00:00: mouth [place] 00 every 8 Medical (eight) Branch hours. ciprofloxac 2021-11 Yes [id number] 500mg Take 1 Univers in HCl 500 2-07 tablet by ity of mg tablet 00:00: mouth [place] 00 the Medical morning Branch and 1 tablet in the evening. metroNIDAZO 2021-11 Yes [id number] 500mg Take 1 Univers LE 500 mg 2-07 tablet by ity o f tablet 00:00: mouth [place] 00 every 8 Medical (eight) Branch hours. ciprofloxac 2021-11- No [id number] 500mg Take 1 Univers in HCl 500 2-07 12-11 tablet by ity of mg tablet 00:00: 00:00 mouth in [place] 00 :00 the Medical morning Branch and 1 tablet in the evening. metroNIDAZO 2021-11- No [id number] 500mg Take 1 Univers LE 500 mg [...] Indication s: chronic pain METFORMIN 2021-11 Yes [id number] TAKE 1 U nivers 500 mg 1-18 TABLET BY ity of tablet 00:00: MOUTH [place] 00 TWICE A Medical DAY WITH Branch MEALS PRAVASTATIN 2021-11 Yes [id number] TAKE 1 Univers 80 mg 1-18 TABLET BY ity of tablet 00:00: MOUTH [place] 00 EVERYDAY Medical AT BEDTIME Branch CARVEDILOL 2021-11 Yes [id number] TAKE 1 U nivers 12.5 mg 1-18 TABLET BY ity of tablet 00:00: MOUTH [place] 00 TWICE A Medical DAY Branch FENOFIBRATE 2021-11 Yes [id number] 200mg TAKE 1 Univers MICRONIZED 1-18 CAPSULE BY ity of 200 mg 00:00: MOUTH [place] capsule 00 DAILY WITH Medica l BREAKFAST. Branch PAROXETINE 2021-11 Yes [id number] TAKE 1 U nivers 40 mg 1-18 TABLET BY ity of tablet 00:00: MOUTH [place] 00 EVERY DAY Medical Branch METFORMIN 2021-11 Yes [id number] TAKE 1 U nivers 500 mg 1-18 TABLET BY ity of tablet 00:00: MOUTH [place] 00 TWICE A Medical DAY WITH Branch MEALS PRAVASTATIN 2021-11 Yes [id number] TAKE 1 Univers 80 mg 1-18 TABLET BY ity of tablet 00:00: MOUTH [place] 00 EVERYDAY Medical AT BEDTIME Branch CARVEDILOL 2021-11 Yes [id number] TAKE 1 U nivers 12.5 mg 1-18 TABLET BY ity of tablet 00:00: MOUTH [place] 00 TWICE A Medical DAY Branch FENOFIBRATE 2021-11 Yes [id number] 200mg TAKE 1 Univers MICRONIZED 1-18 CAPSULE BY ity of 200 mg 00:00: MOUTH [place] capsule 00 DAILY WITH Medica l BREAKFAST. Branch PAROXETINE 2021-11 Yes [id number] TAKE 1 U nivers 40 mg 1-18 TABLET BY ity of tablet 00:00: MOUTH [place] 00 EVERY DAY Medical Branch METFORMIN 2021-11 Yes [id number] TAKE 1 U nivers 500 mg 1-18 TABLET BY ity of tablet 00:00: MOUTH [place] 00 TWICE A Medical DAY WITH Branch MEALS PRAVASTATIN 2021-11 Yes [id number] TAKE 1 Univers 80 mg 1-18 TABLET BY ity of tablet 00:00: MOUTH [place] 00 EVERYDAY Medical AT BEDTIME Branch CARVEDILOL 2021-11 Yes [id number] TAKE 1 U nivers 12.5 mg 1-18 TABLET BY ity of tablet 00:00: MOUTH [place] 00 TWICE A Medical DAY Branch FENOFIBRATE 2021-11 Yes [id number] 200mg TAKE 1 Univers MICRONIZED 1-18 CAPSULE BY ity of 200 mg 00:00: MOUTH [place] capsule 00 DAILY WITH Medica l BREAKFAST. Branch PAROXETINE 2021-11 Yes [id number] TAKE 1 U nivers 40 mg 1-18 TABLET BY ity of tablet 00:00: MOUTH [place] 00 EVERY DAY Medical Branch METFORMIN 2021-11 Yes [id number] TAKE 1 U nivers 500 mg 1-18 TABLET BY ity of tablet 00:00: MOUTH [place] 00 TWICE A Medical DAY WITH Branch MEALS PRAVASTATIN 2021-11 Yes [id number] TAKE 1 [facility] 80 mg 1-18 TABLET BY [facility] of tablet 00:00: MOUTH [place] 00 EVERYDAY Medical AT BEDTIME Branch CARVEDILOL 2021-11 Yes [id number] TAKE 1 [facility] nivers 12.5 mg 1-18 TABLET BY ity of tablet 00:00: MOUTH [place] 00 TWICE A Medical DAY Branch FENOFIBRATE 2021-11 Yes [id number] 200mg TAKE 1 [facility] MICRONIZED 1-18 CAPSULE BY ity of 200 mg 00:00: MOUTH [place] capsule 00 DAILY WITH Medica l BREAKFAST. Branch PAROXETINE 2021-11 Yes [id number] TAKE 1 [facility] n[facility] 40 mg 1-18 TABLET BY ity of tablet 00:00: MOUTH [place] 00 EVERY DAY Medical Branch METFORMIN 2021-11 Yes [id number] TAKE 1 [facility] 500 mg 1-18 TABLET BY ity of tablet 00:00: MOUTH [place] 00 TWICE A Medical DAY WITH Branch MEALS PRAVASTATIN 2021-11 Yes [id number] TAKE 1 [facility] 80 mg 1-18 TABLET BY ity of tablet 00:00: MOUTH [place] 00 EVERYDAY Medical AT BEDTIME Branch CARVEDILOL 2021-11 Yes [id number] TAKE 1 [facility] nivers 12.5 mg 1-18 TABLET BY ity of tablet 00:00: MOUTH [place] 00 TWICE A Medical DAY Branch FENOFIBRATE 2021-11 Yes [id number] 200mg TAKE 1 [facility] MICRONIZED 1-18 CAPSULE BY ity of 200 mg 00:00: MOUTH [place] capsule 00 DAILY WITH Medica l BREAKFAST. Branch PAROXETINE 2021-11 Yes [id number] TAKE 1 [facility] n[facility] 40 mg 1-18 TABLET BY ity of tablet 00:00: MOUTH [place] 00 EVERY DAY Medical Branch METFORMIN 2021-11 Yes [id number] TAKE 1 [facility] 500 mg 1-18 TABLET BY ity of tablet 00:00: MOUTH [place] 00 TWICE A Medical DAY WITH Branch MEALS PRAVASTATIN 2021-11 Yes [id number] TAKE 1 [facility] 80 mg 1-18 TABLET BY ity of tablet 00:00: MOUTH [place] 00 EVERYDAY Medical AT BEDTIME Branch CARVEDILOL 2021-11 Yes [id number] TAKE 1 [facility] nivers 12.5 mg 1-18 TABLET BY ity of tablet 00:00: MOUTH [place] 00 TWICE A Medical DAY Branch FENOFIBRATE 2021-11 Yes [id number] 200mg TAKE 1 [facility] MICRONIZED 1-18 CAPSULE BY ity of 200 mg 00:00: MOUTH [place] capsule 00 DAILY WITH Medica l BREAKFAST. Branch PAROXETINE 2021-11 Yes [id number] TAKE 1 [facility] 40 mg 1-18 TABLET BY ity of tablet 00:00: MOUTH [place] 00 EVERY DAY Medical Branch METFORMIN 2021-11 Yes [id number] TAKE 1 [facility] 500 mg 1-18 TABLET BY ity of tablet 00:00: MOUTH [place] 00 TWICE A Medical DAY WITH Branch MEALS PRAVASTATIN 2021-11 Yes [id number] TAKE 1 [facility] 80 mg 1-18 TABLET BY it[facility] of tablet 00:00: MOUTH [place] 00 EVERYDAY Medical AT BEDTIME Branch CARVEDILOL 2021-11 Yes [id number] TAKE 1 [facility]ivers 12.5 mg 1-18 TABLET BY ity of tablet 00:00: MOUTH [place] 00 TWICE A Medical DAY Branch FENOFIBRATE 2021-11 Yes [id number] 200mg TAKE 1 [facility] MICRONIZED 1-18 CAPSULE BY ity of 200 mg 00:00: MOUTH [place] capsule 00 DAILY WITH Medica l BREAKFAST. Branch PAROXETINE 2021-11 Yes [id number] TAKE 1 [facility] 40 mg 1-18 TABLET BY ity of tablet 00:00: MOUTH [place] 00 EVERY DAY Medical Branch METFORMIN 2021-11 Yes [id number] TAKE 1 [facility] 500 mg 1-18 TABLET BY ity of tablet 00:00: MOUTH [place] 00 TWICE A Medical DAY WITH Branch MEALS PRAVASTATIN 2021-11 Yes [id number] TAKE 1 [facility] 80 mg 1-18 TABLET BY ity of tablet 00:00: MOUTH [place] 00 EVERYDAY Medical AT BEDTIME Branch CARVEDILOL 2021-11 Yes [id number] TAKE 1 [facility] 12.5 mg 1-18 TABLET BY ity of tablet 00:00: MOUTH [place] 00 TWICE A Medical DAY Branch FENOFIBRATE 2021-11 Yes [id number] 200mg TAKE 1 [facility] MICRONIZED 1-18 CAPSULE BY ity of 200 mg 00:00: MOUTH [place] capsule 00 DAILY WITH Medica l BREAKFAST. Branch PAROXETINE 2021-11 Yes [id number] TAKE 1 [facility] 40 mg 1-18 TABLET BY ity of tablet 00:00: MOUTH [place] 00 EVERY DAY Medical Branch METFORMIN 2021-11 Yes [id number] TAKE 1 [facility] 500 mg 1-18 TABLET BY ity of tablet 00:00: MOUTH [place] 00 TWICE A Medical DAY WITH Branch MEALS PRAVASTATIN 2021-11 Yes [id number] TAKE 1 [facility] 80 mg 1-18 TABLET BY ity of tablet 00:00: MOUTH [place] 00 EVERYDAY Medical AT BEDTIME Branch CARVEDILOL 2021-11 Yes [id number] TAKE 1 [facility] nivers 12.5 mg 1-18 TABLET BY ity of tablet 00:00: MOUTH [place] 00 TWICE A Medical DAY Branch FENOFIBRATE 2021-11 Yes [id number] 200mg TAKE 1 [facility] MICRONIZED 1-18 CAPSULE BY ity of 200 mg 00:00: MOUTH [place] capsule 00 DAILY WITH Medica l BREAKFAST. Branch PAROXETINE 2021-11 Yes [id number] TAKE 1 [facility] 40 mg 1-18 TABLET BY ity of tablet 00:00: MOUTH [place] 00 EVERY DAY Medical Branch METFORMIN 2021-11 Yes [id number] TAKE 1 [facility] 500 mg 1-18 TABLET BY ity of tablet 00:00: MOUTH [place] 00 TWICE A Medical DAY WITH Branch MEALS PRAVASTATIN 2021-11 Yes [id number] TAKE 1 [facility] 80 mg 1-18 TABLET BY ity of tablet 00:00: MOUTH [place] 00 EVERYDAY Medical AT BEDTIME Branch CARVEDILOL 2021-11 Yes [id number] TAKE 1 [facility] nivers 12.5 mg 1-18 TABLET BY ity of tablet 00:00: MOUTH [place] 00 TWICE A Medical DAY Branch FENOFIBRATE 2021-11 Yes [id number] 200mg TAKE 1 [facility] MICRONIZED 1-18 CAPSULE BY ity of 200 mg 00:00: MOUTH [place] capsule 00 DAILY WITH Medica l BREAKFAST. Branch PAROXETINE 2021-11 Yes [id number] TAKE 1 [facility] 40 mg 1-18 TABLET BY ity of tablet 00:00: MOUTH [place] 00 EVERY DAY Medical Branch METFORMIN 2021-11 Yes [id number] TAKE 1 [facility] 500 mg 1-18 TABLET BY it[facility] of tablet 00:00: MOUTH [place] 00 TWICE A Medical DAY WITH Branch MEALS PRAVASTATIN 2021-11 Yes [id number] TAKE 1 [facility] 80 mg 1-18 TABLET BY ity of tablet 00:00: MOUTH [place] 00 EVERYDAY Medical AT BEDTIME Branch CARVEDILOL 2021-11 Yes [id number] TAKE 1 [facility] nivers 12.5 mg 1-18 TABLET BY ity of tablet 00:00: MOUTH [place] 00 TWICE A Medical DAY Branch FENOFIBRATE 2021-11 Yes [id number] 200mg TAKE 1 [facility] MICRONIZED 1-18 CAPSULE BY ity of 200 mg 00:00: MOUTH [place] capsule 00 DAILY WITH Medica l BREAKFAST. Branch PAROXETINE 2021-11 Yes [id number] TAKE 1 [facility] 40 mg 1-18 TABLET BY ity of tablet 00:00: MOUTH [place] 00 EVERY DAY Medical Branch METFORMIN 2021-11 Yes [id number] TAKE 1 [facility] 500 mg 1-18 TABLET BY ity of tablet 00:00: MOUTH [place] 00 TWICE A Medical DAY WITH Branch MEALS PRAVASTATIN 2021-11 Yes [id number] TAKE 1 [facility] 80 mg 1-18 TABLET BY ity of tablet 00:00: MOUTH [place] 00 EVERYDAY Medical AT BEDTIME Branch CARVEDILOL 2021-11 Yes [id number] TAKE 1 [facility] 12.5 mg 1-18 TABLET BY ity of tablet 00:00: MOUTH [place] 00 TWICE A Medical DAY Branch FENOFIBRATE 2021-11 Yes [id number] 200mg TAKE 1 [facility] MICRONIZED 1-18 CAPSULE BY ity of 200 mg 00:00: MOUTH [place] capsule 00 DAILY WITH Medica l BREAKFAST. Branch PAROXETINE 2021-11 Yes [id number] TAKE 1 [facility] 40 mg 1-18 TABLET BY ity of tablet 00:00: MOUTH [place] 00 EVERY DAY Medical Branch METFORMIN 2021-11 Yes [id number] TAKE 1 [facility] 500 mg 1-18 TABLET BY ity of tablet 00:00: MOUTH [place] 00 TWICE A Medical DAY WITH Branch MEALS PRAVASTATIN 2021-11 Yes [id number] TAKE 1 [facility] 80 mg 1-18 TABLET BY it[facility] of tablet 00:00: MOUTH [place] 00 EVERYDAY Medical AT BEDTIME Branch CARVEDILOL 2021-11 Yes [id number] TAKE 1 [facility] 12.5 mg 1-18 TABLET BY ity of tablet 00:00: MOUTH [place] 00 TWICE A Medical DAY Branch FENOFIBRATE 2021-11 Yes [id number] 200mg TAKE 1 [facility] MICRONIZED 1-18 CAPSULE BY ity of 200 mg 00:00: MOUTH [place] capsule 00 DAILY WITH Medica l BREAKFAST. Branch PAROXETINE 2021-11 Yes [id number] TAKE 1 [facility] 40 mg 1-18 TABLET BY ity of tablet 00:00: MOUTH [place] 00 EVERY DAY Medical Branch METFORMIN 2021-11 Yes [id number] TAKE 1 [facility] 500 mg 1-18 TABLET BY ity of tablet 00:00: MOUTH [place] 00 TWICE A Medical DAY WITH Branch MEALS PRAVASTATIN 2021-11 Yes [id number] TAKE 1 [facility] 80 mg 1-18 TABLET BY [facility]y of tablet 00:00: MOUTH [place] 00 EVERYDAY Medical AT BEDTIME Branch CARVEDILOL 2021-11 Yes [id number] TAKE 1 [facility] 12.5 mg 1-18 TABLET BY ity of tablet 00:00: MOUTH [place] 00 TWICE A Medical DAY Branch FENOFIBRATE 2021-11 Yes [id number] 200mg TAKE 1 [facility] MICRONIZED 1-18 CAPSULE BY ity of 200 mg 00:00: MOUTH [place] capsule 00 DAILY WITH Medica l BREAKFAST. Branch PAROXETINE 2021-11 Yes [id number] TAKE 1 [facility] 40 mg 1-18 TABLET BY ity of tablet 00:00: MOUTH [place] 00 EVERY DAY Medical Branch METFORMIN 2021-11 Yes [id number] TAKE 1 [facility] 500 mg 1-18 TABLET BY ity of tablet 00:00: MOUTH [place] 00 TWICE A Medical DAY WITH Branch MEALS PRAVASTATIN 2021-11 Yes [id number] TAKE 1 [facility] 80 mg 1-18 TABLET BY ity of tablet 00:00: MOUTH [place] 00 EVERYDAY Medical AT BEDTIME Branch CARVEDILOL 2021-11 Yes [id number] TAKE 1 [facility] 12.5 mg 1-18 TABLET BY ity of tablet 00:00: MOUTH [place] 00 TWICE A Medical DAY Branch FENOFIBRATE 2021-11 Yes [id number] 200mg TAKE 1 [facility] MICRONIZED 1-18 CAPSULE BY ity of 200 mg 00:00: MOUTH [place] capsule 00 DAILY WITH Medica l BREAKFAST. Branch PAROXETINE 2021-11 Yes [id number] TAKE 1 [facility] 40 mg 1-18 TABLET BY ity of tablet 00:00: MOUTH [place] 00 EVERY DAY Medical Branch METFORMIN 2021-11 Yes [id number] TAKE 1 [facility] 500 mg 1-18 TABLET BY ity of tablet 00:00: MOUTH [place] 00 TWICE A Medical DAY WITH Branch MEALS PRAVASTATIN 2021-11 Yes [id number] TAKE 1 [facility] 80 mg 1-18 TABLET BY ity of tablet 00:00: MOUTH [place] 00 EVERYDAY Medical AT BEDTIME Branch CARVEDILOL 2021-11 Yes [id number] TAKE 1 [facility] nivers 12.5 mg 1-18 TABLET BY ity of tablet 00:00: MOUTH [place] 00 TWICE A Medical DAY Branch FENOFIBRATE 2021-11 Yes [id number] 200mg TAKE 1 [facility] MICRONIZED 1-18 CAPSULE BY ity of 200 mg 00:00: MOUTH [place] capsule 00 DAILY WITH Medica l BREAKFAST. Branch PAROXETINE 2021-11 Yes [id number] TAKE 1 [facility] 40 mg 1-18 TABLET BY ity of tablet 00:00: MOUTH [place] 00 EVERY DAY Medical Branch METFORMIN 2021-11 Yes [id number] TAKE 1 [facility] 500 mg 1-18 TABLET BY ity of tablet 00:00: MOUTH [place] 00 TWICE A Medical DAY WITH Branch MEALS PRAVASTATIN 2021-11 Yes [id number] TAKE 1 [facility] 80 mg 1-18 TABLET BY ity of tablet 00:00: MOUTH [place] 00 EVERYDAY Medical AT BEDTIME Branch CARVEDILOL 2021-11 Yes [id number] TAKE 1 [facility] 12.5 mg 1-18 TABLET BY ity of tablet 00:00: MOUTH [place] 00 TWICE A Medical DAY Branch FENOFIBRATE 2021-11 Yes [id number] 200mg TAKE 1 [facility] MICRONIZED 1-18 CAPSULE BY ity of 200 mg 00:00: MOUTH [place] capsule 00 DAILY WITH Medica l BREAKFAST. Branch PAROXETINE 2021-11 Yes [id number] TAKE 1 [facility] 40 mg 1-18 TABLET BY ity of tablet 00:00: MOUTH [place] 00 EVERY DAY Medical Branch METFORMIN 2021-11 Yes [id number] TAKE 1 [facility] 500 mg 1-18 TABLET BY ity of tablet 00:00: MOUTH [place] 00 TWICE A Medical DAY WITH Branch MEALS PRAVASTATIN 2021-11 Yes [id number] TAKE 1 [facility] 80 mg 1-18 TABLET BY ity of tablet 00:00: MOUTH [place] 00 EVERYDAY Medical AT BEDTIME Branch CARVEDILOL 2021-11 Yes [id number] TAKE 1 [facility] nivers 12.5 mg 1-18 TABLET BY ity of tablet 00:00: MOUTH [place] 00 TWICE A Medical DAY Branch FENOFIBRATE 2021-11 Yes [id number] 200mg TAKE 1 [facility] MICRONIZED 1-18 CAPSULE BY ity of 200 mg 00:00: MOUTH [place] capsule 00 DAILY WITH Medica l BREAKFAST. Branch PAROXETINE 2021-11 Yes [id number] TAKE 1 [facility] 40 mg 1-18 TABLET BY ity of tablet 00:00: MOUTH [place] 00 EVERY DAY Medical Branch METFORMIN 2021-11 Yes [id number] TAKE 1 [facility] 500 mg 1-18 TABLET BY ity of tablet 00:00: MOUTH [place] 00 TWICE A Medical DAY WITH Branch MEALS PRAVASTATIN 2021-11 Yes [id number] TAKE 1 [facility] 80 mg 1-18 TABLET BY ity of tablet 00:00: MOUTH [place] 00 EVERYDAY Medical AT BEDTIME Branch CARVEDILOL 2021-11 Yes [id number] TAKE 1 [facility] nivers 12.5 mg 1-18 TABLET BY ity of tablet 00:00: MOUTH [place] 00 TWICE A Medical DAY Branch FENOFIBRATE 2021-11 Yes [id number] 200mg TAKE 1 [facility] MICRONIZED 1-18 CAPSULE BY ity of 200 mg 00:00: MOUTH [place] capsule 00 DAILY WITH Medica l BREAKFAST. Branch PAROXETINE 2021-11 Yes [id number] TAKE 1 [facility] 40 mg 1-18 TABLET BY ity of tablet 00:00: MOUTH [place] 00 EVERY DAY Medical Branch METFORMIN 2021-11 Yes [id number] TAKE 1 [facility] 500 mg 1-18 TABLET BY ity of tablet 00:00: MOUTH [place] 00 TWICE A Medical DAY WITH Branch MEALS PRAVASTATIN 2021-11 Yes [id number] TAKE 1 [facility] 80 mg 1-18 TABLET BY ity of tablet 00:00: MOUTH [place] 00 EVERYDAY Medical AT BEDTIME Branch CARVEDILOL 2021-11 Yes [id number] TAKE 1 [facility] 12.5 mg 1-18 TABLET BY ity of tablet 00:00: MOUTH [place] 00 TWICE A Medical DAY Branch FENOFIBRATE 2021-11 Yes [id number] 200mg TAKE 1 [facility] MICRONIZED 1-18 CAPSULE BY ity of 200 mg 00:00: MOUTH [place] capsule 00 DAILY WITH Medica l BREAKFAST. Branch PAROXETINE 2021-11 Yes [id number] TAKE 1 [facility] 40 mg 1-18 TABLET BY ity of tablet 00:00: MOUTH [place] 00 EVERY DAY Medical Branch METFORMIN 2021-11 Yes [id number] TAKE 1 [facility] 500 mg 1-18 TABLET BY ity of tablet 00:00: MOUTH [place] 00 TWICE A Medical DAY WITH Branch MEALS PRAVASTATIN 2021-11 Yes [id number] TAKE 1 [facility] 80 mg 1-18 TABLET BY ity of tablet 00:00: MOUTH [place] 00 EVERYDAY Medical AT BEDTIME Branch CARVEDILOL 2021-11 Yes [id number] TAKE 1 [facility] nivers 12.5 mg 1-18 TABLET BY ity of tablet 00:00: MOUTH [place] 00 TWICE A Medical DAY Branch FENOFIBRATE 2021-11 Yes [id number] 200mg TAKE 1 [facility] MICRONIZED 1-18 CAPSULE BY ity of 200 mg 00:00: MOUTH [place] capsule 00 DAILY WITH Medica l BREAKFAST. Branch PAROXETINE 2021-11 Yes [id number] TAKE 1 [facility] 40 mg 1-18 TABLET BY ity of tablet 00:00: MOUTH [place] 00 EVERY DAY Medical Branch PRAVASTATIN 2021-11 Yes [id number] TAKE 1 [facility] 80 mg 1-18 TABLET BY ity of tablet 00:00: MOUTH [place] 00 EVERYDAY Medical AT BEDTIME Branch CARVEDILOL 2021-11 Yes [id number] TAKE 1 [facility] nivers 12.5 mg 1-18 TABLET BY ity of tablet 00:00: MOUTH [place] TWICE A Medical DAY Branch FENOFIBRATE 2021-11 Yes [id number] 200mg TAKE 1 [facility] MICRONIZED 1-18 CAPSULE BY ity of 200 mg 00:00: MOUTH [place] capsule 00 DAILY WITH Medica l BREAKFAST. Branch PAROXETINE 2021-11 Yes [id number] TAKE 1 [facility] 40 mg 1-18 TABLET BY ity of tablet 00:00: MOUTH [place] 00 EVERY DAY Medical Branch PRAVASTATIN 2021-11 Yes [id number] TAKE 1 [facility] 80 mg 1-18 TABLET BY ity of tablet 00:00: MOUTH [place] 00 EVERYDAY Medical AT BEDTIME Branch CARVEDILOL 2021-11 Yes [id number] TAKE 1 [facility] nivers 12.5 mg 1-18 TABLET BY ity of tablet 00:00: MOUTH [place] 00 TWICE A Medical DAY Branch FENOFIBRATE 2021-11 Yes [id number] 200mg TAKE 1 [facility] MICRONIZED 1-18 CAPSULE BY ity of 200 mg 00:00: MOUTH [place] capsule 00 DAILY WITH Medica l BREAKFAST. Branch PAROXETINE 2021-11 Yes [id number] TAKE 1 [facility] 40 mg 1-18 TABLET BY ity of tablet 00:00: MOUTH [place] 00 EVERY DAY Medical Branch PRAVASTATIN 2021-11 Yes [id number] TAKE 1 [facility] 80 mg 1-18 TABLET BY ity of tablet 00:00: MOUTH [place] 00 EVERYDAY Medical AT BEDTIME Branch CARVEDILOL 2021-11 Yes [id number] TAKE 1 [facility] nivers 12.5 mg 1-18 TABLET BY ity of tablet 00:00: MOUTH [place] 00 TWICE A Medical DAY Branch FENOFIBRATE 2021-11 Yes [id number] 200mg TAKE 1 [facility] MICRONIZED 1-18 CAPSULE BY ity of 200 mg 00:00: MOUTH [place] capsule 00 DAILY WITH Medica l BREAKFAST. Branch PAROXETINE 2021-11 Yes [id number] TAKE 1 [facility] 40 mg 1-18 TABLET BY ity of tablet 00:00: MOUTH [place] 00 EVERY DAY Medical Branch METFORMIN 2021-11- No [id number] TAKE 1 [facility] 500 mg 1-18 01-10 TABLET BY ity of tablet 00:00: 00:00 MOUTH [place] 00 :00 TWICE A Medical DAY WITH Branch MEALS ciprofloxac 2021-11 No 500mg Take 500 [facility] in HCl [...] every 8 Medical (eight) Branch hours. HYDROcodone Yes [id number] 1{tbl} Take 1 Un [...] Indication s: chronic pain TROSPIUM 20 Yes [id number] TAKE 1 [facility] mg tablet 9-16 TABLET BY ity o f 00:00: MOUTH IN [place] [address] THE Medical MORNING Branch AND 1 TABLET IN THE EVENING. NEEDS APPOINTMEN T TROSPIUM 20 Yes [id number] TAKE 1 [facility] mg tablet 9-16 TABLET BY ity o f 00:00: MOUTH IN [place] [address] THE Medical MORNING Branch AND 1 TABLET IN THE EVENING. NEEDS APPOINTMEN T TROSPIUM 20 Yes [id number] TAKE 1 [facility] mg tablet 9-16 TABLET BY ity o f 00:00: MOUTH IN [place] 00 THE Medical MORNING Branch AND 1 TABLET IN THE EVENING. NEEDS APPOINTMEN T TROSPIUM 20 Yes [id number] TAKE 1 [facility] mg tablet 9-16 TABLET BY ity o f 00:00: MOUTH IN [place] [address] THE Medical MORNING Branch AND 1 TABLET IN THE EVENING. NEEDS APPOINTMEN T TROSPIUM 20 Yes [id number] TAKE 1 [facility] mg tablet 9-16 TABLET BY ity o f 00:00: MOUTH IN [place] 00 THE Medical MORNING Branch AND 1 TABLET IN THE EVENING. NEEDS APPOINTEZEQUIEL Ryan TROSPIUM 20 Yes [id number] TAKE 1 [facility] mg tablet 9-16 TABLET BY ity o f 00:00: MOUTH IN [place] 00 THE Medical MORNING Branch AND 1 TABLET IN THE EVENING. NEEDS APPOINTEZEQUIEL [place] TROSPIUM Yes [id number] TAKE 1 [facility] mg tablet 9-16 TABLET BY ity o f 00:00: MOUTH IN [place] 00 THE Medical MORNING Branch AND 1 TABLET IN THE EVENING. NEEDS APPOINTEZEQUIEL [place] TROSPIUM Yes [id number] TAKE 1 [facility] mg tablet 9-16 TABLET BY ity o f 00:00: MOUTH IN [place] 00 THE Medical MORNING Branch AND 1 TABLET IN THE EVENING. NEEDS APPOINTEZEQUIEL [place] TROSPIUM Yes [id number] TAKE 1 [facility] mg tablet 9-16 TABLET BY ity o f 00:00: MOUTH IN [place] 00 THE Medical MORNING Branch AND 1 TABLET IN THE EVENING. NEEDS ALESSIA PERSAUDSPIUM Yes [id number] TAKE 1 [facility] mg tablet 9-16 TABLET BY ity o f 00:00: MOUTH IN [place] 00 THE Medical MORNING Branch AND 1 TABLET IN THE EVENING. NEEDS ALESSIA [place] TROSPIUM Yes [id number] TAKE 1 [facility] mg tablet 9-16 TABLET BY ity o f 00:00: MOUTH IN [place] 00 THE Medical MORNING Branch AND 1 TABLET IN THE EVENING. NEEDS APPOINTEZEQUIEL [place] TROSPIUM Yes [id number] TAKE 1 [facility] mg tablet 9-16 TABLET BY ity o f 00:00: MOUTH IN [place] 00 THE Medical MORNING Branch AND 1 TABLET IN THE EVENING. NEEDS APPOINTEZEQUIEL [place] TROSPIUM Yes [id number] TAKE 1 [facility] mg tablet 9-16 TABLET BY ity o f 00:00: MOUTH IN [place] 00 THE Medical MORNING Branch AND 1 TABLET IN THE EVENING. NEEDS APPOINTEZEQUIEL [place] TROSPIUM Yes [id number] TAKE 1 [facility] mg tablet 9-16 TABLET BY ity o f 00:00: MOUTH IN [place] 00 THE Medical MORNING Branch AND 1 TABLET IN THE EVENING. NEEDS APPOINTEZEQUIEL [place] TROSPIUM Yes [id number] TAKE 1 [facility] mg tablet 9-16 TABLET BY ity o f 00:00: MOUTH IN [place] 00 THE Medical MORNING Branch AND 1 TABLET IN THE EVENING. NEEDS APPOINTEZEQUIEL [place] TROSPIUM 20 Yes [id number] TAKE 1 [facility] mg tablet 9-16 TABLET BY ity o f 00:00: MOUTH IN [place] 00 THE Medical MORNING Branch AND 1 TABLET IN THE EVENING. NEEDS APPOINTEZEQUIEL [place] TROSPIUM Yes [id number] TAKE 1 [facility] mg tablet 9-16 TABLET BY ity o f 00:00: MOUTH IN [place] 00 THE Medical MORNING Branch AND 1 TABLET IN THE EVENING. NEEDS APPOINTEZEQUIEL [place] TROSPIUM Yes [id number] TAKE 1 [facility] mg tablet 9-16 TABLET BY ity o f 00:00: MOUTH IN [place] 00 THE Medical MORNING Branch AND 1 TABLET IN THE EVENING. NEEDS APPOINTEZEQUIEL [place] TROSPIUM Yes [id number] TAKE 1 [facility] mg tablet 9-16 TABLET BY ity o f 00:00: MOUTH IN [place] 00 THE Medical MORNING Branch AND 1 TABLET IN THE EVENING. NEEDS ALESSIA PERSAUDSPIUM Yes [id number] TAKE 1 [facility] mg tablet 9-16 TABLET BY ity o f 00:00: MOUTH IN [place] 00 THE Medical MORNING Branch AND 1 TABLET IN THE EVENING. NEEDS ALESSIA [place] TROSPIUM Yes [id number] TAKE 1 [facility] mg tablet 9-16 TABLET BY ity o f 00:00: MOUTH IN [place] 00 THE Medical MORNING Branch AND 1 TABLET IN THE EVENING. NEEDS APPOINTEZEQUIEL [place] TROSPIUM Yes [id number] TAKE 1 [facility] mg tablet 9-16 TABLET BY ity o f 00:00: MOUTH IN [place] 00 THE Medical MORNING Branch AND 1 TABLET IN THE EVENING. NEEDS APPOINTEZEQUIEL Ryan TROSPIUM Yes [id number] TAKE 1 [facility] mg tablet 9-16 TABLET BY ity o f 00:00: MOUTH IN [place] 00 THE Medical MORNING Branch AND 1 TABLET IN THE EVENING. NEEDS APPOINTEZEQUIEL Ryan TROSPIUM Yes [id number] TAKE 1 [facility] mg tablet 9-16 TABLET BY ity o f 00:00: MOUTH IN [place] 00 THE Medical MORNING Branch AND 1 TABLET IN THE EVENING. NEEDS APPOINTEZEQUIEL Ryan TROSPIUM Yes [id number] TAKE 1 [facility] mg tablet 9-16 TABLET BY ity o f 00:00: MOUTH IN [place] 00 THE Medical MORNING Branch AND 1 TABLET IN THE EVENING. NEEDS APPOINTMEN T TROSPIUM 20 Yes [id number] TAKE 1 [facility] mg tablet 9-16 TABLET BY ity o f 00:00: MOUTH IN [place] 00 THE Medical MORNING Branch AND 1 TABLET IN THE EVENING. NEEDS APPOINTMEN T TROSPIUM 20 Yes [id number] TAKE 1 [facility] mg tablet 9-16 TABLET BY ity o f 00:00: MOUTH IN [place] 00 THE Medical MORNING Branch AND 1 TABLET IN THE EVENING. 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.] s (BSS PLUS) 00 :09 07/17/22 at [facility] ical ophthalmic 1037, Branch solution Until Fri [...] on Fri (HYLENEX) 00 :09 07/17/22 at [facility] aleksandra injection 1030, Branch Until Fri07/17/22 at 1059, Routine, Intra-op eye block 2021- No PRN, [facility] syringe 11 07-17 Starting ity of mL 15:30: 15:59 on Fri [place] 00 :09 07/17/22 at Medical 1030, Branch Until Fri07/17/22 at 1059, Intra-op propofoL IV 2021- No Intravenou [facility] infusion 07-17 s, ONCE ity of 15:26: 15:58 INTRA [place] 00 :34 PROCEDURE, Medical [...] of injection 15:21: 15:58 PROCEDURE, [place] :34 Starting Medical on Fri Branch 07/17/22 at 1021, Until Fri07/17/22 at 1058, Routine, Intra-op lactated 2021- No Intravenou Un kat ringers IV 07-17 s, ity of infusion 15:21: 15:58 [place]UOUS [place] 34 PRN, Medical Starting Branch on Fri07/17/22 at 1021, Until Fri07/17/22 at 1058, Routine, Intra-op ketorolac 2021- No 1[drp] 1 Drop, Un kat (ACULAR) 07-17 Right Eye, ity of 0.5 % 13:45: 13:49 ONCE, 1 [place] ophthalmic 00 :00 dose, On Medic al solution 1 Fri Branch Drop 07/17/22 at 0845, Routine, DSU Pre-op tropicamide 2021- No 1[drp] 1 Drop, Univers (MYDRIACYL) 07-17 Right Eye, i ty of 1 % 13:45: 13:49 ONCE, 1 [place] ophthalmic 00 :00 dose, On Medic al [...] at Drop 0845, Routine, DSU Pre-op lactated 2022-0 2022- No 1000mL at 42 Unive rs ringers IV 8-24 08-24 mL/hr, ity of infusion 13:45: 14:14 1,000 mL, [place] 1,000 mL 00 :00 IV Medical Infusion, Branch ONCE, 1 dose, On Fri07/17/22 at 0845, Routine, DSU Pre-op HYDROcodone 2022-0 Yes 2745 1{tbl} Take 1 Un kat [...] (scale 4-6). Indication s: chronic pain HYDROcodone 202-0 Yes 2745 1{tbl} Take 1 Un kat [...] (scale 4-6). Indication s: chronic pain HYDROcodone 2022-0 Yes 2745 1{tbl} Take 1 Un kat -acetaminop 8-22 tablet by ity of hen 5-325 00:00: mouth 2 [place] mg tablet 00 (two) Medical times Branch daily as needed for Pain (scale 4-6). Indication s: chronic pain HYDROcodone 2022-0 Yes 2745 1{tbl} Take 1 Un kat -acetaminop 8-22 tablet by ity of hen 5-325 00:00: mouth 2 [place] mg tablet 00 (two) Medical times Branch daily as needed for Pain (scale 4-6). Indication s: chronic pain HYDROcodone 2022-0 2022- No 2745 1{tbl} Take 1 U nivers -acetaminop 8-22 -26 tablet by it y of hen 5-325 00:00: 00:00 mouth 2 [place] mg tablet 00 :00 (two) Medical times Branch daily as needed for Pain (scale 4-6). Indication s: chronic pain AMLODIPINE 2021-0 Yes [id number] TAKE 1 U nivers 5 mg tablet 8-09 TABLET BY ity of 00:00: MOUTH [place] 00 EVERY DAY Medical Branch AMLODIPINE 2021-0 Yes [id number] TAKE 1 U nivers 5 mg tablet 8-09 TABLET BY ity of 00:00: MOUTH [place] 00 EVERY DAY Medical Branch trospium 20 2021-0 Yes [id number] 20mg Take 1 [facility] mg tablet 8-09 tablet by ity o f 00:00: mouth in [place] 00 the Medical morning Branch and 1 tablet in the evening. AMLODIPINE 2021-0 Yes [id number] TAKE 1 U nivers 5 mg tablet 8-09 TABLET BY ity of 00:00: MOUTH [place] 00 EVERY DAY Medical Branch trospium 20 2021-0 Yes [id number] 20mg Take 1 [facility] mg tablet 8-09 tablet by ity o f 00:00: mouth in [place] 00 the Medical morning Branch and 1 tablet in the evening. AMLODIPINE 2021-0 Yes [id number] TAKE 1 U nivers 5 mg tablet 8-09 TABLET BY ity of 00:00: MOUTH [place] 00 EVERY DAY Medical Branch trospium 20 2021-0 Yes [id number] 20mg Take 1 [facility] mg tablet 8-09 tablet by ity o f 00:00: mouth in [place] 00 the Medical morning Branch and 1 tablet in the evening. AMLODIPINE 2021-0 Yes [id number] TAKE 1 U nivers 5 mg tablet 8-09 TABLET BY ity of 00:00: MOUTH [place] 00 EVERY DAY Medical Branch trospium 20 2021-0 Yes [id number] 20mg Take 1 [facility] mg tablet 8-09 tablet by ity o f 00:00: mouth in [place] 00 the Medical morning Branch and 1 tablet in the evening. AMLODIPINE 2021-0 Yes [id number] TAKE 1 [facility] 5 mg tablet 8-09 TABLET BY [facility] 00:00: MOUTH [place] 00 EVERY DAY Medical Branch trospium 20 2022-0 Yes [id number] 20mg Take 1 [facility] mg tablet 8-09 tablet by [facility] f 00:00: mouth in [place] 00 the Medical morning Branch and 1 tablet in the evening. AMLODIPINE 2-0 Yes [id number] TAKE 1 [facility] 5 mg tablet 8-09 TABLET BY [facility] 00:00: MOUTH [place] 00 EVERY DAY Medical Branch trospium 20 2022-0 Yes [id number] 20mg Take 1 [facility] mg tablet 8-09 tablet by [facility] f 00:00: mouth in [place] 00 the Medical morning Branch and 1 tablet in the evening. AMLODIPINE 2-0 Yes [id number] TAKE 1 [facility] 5 mg tablet 8-09 TABLET BY [facility] 00:00: MOUTH [place] 00 EVERY DAY Medical Branch trospium 20 2-0 Yes [id number] 20mg Take 1 [facility] mg tablet 8-09 tablet by [facility] o f 00:00: mouth in [place] 00 the Medical morning Branch and 1 tablet in the evening. AMLODIPINE 2021-0 Yes [id number] TAKE 1 [facility] 5 mg tablet 8-09 TABLET BY [facility] 00:00: MOUTH [place] 00 EVERY DAY Medical Branch trospium 20 2-0 Yes [id number] 20mg Take 1 [facility] mg tablet 8-09 tablet by [facility] f 00:00: mouth in [place] 00 the Medical morning Branch and 1 tablet in the evening. AMLODIPINE 2021-0 Yes [id number] TAKE 1 [facility] 5 mg tablet 8-09 TABLET BY [facility] 00:00: MOUTH [place] 00 EVERY DAY Medical Branch AMLODIPINE 2-0 Yes [id number] TAKE 1 [facility] 5 mg tablet 8-09 TABLET BY [facility] 00:00: MOUTH [place] 00 EVERY DAY Medical Branch AMLODIPINE 2-0 Yes [id number] TAKE 1 [facility] 5 mg tablet 8-09 TABLET BY [facility] 00:00: MOUTH [place] 00 EVERY DAY Medical Branch AMLODIPINE 2-0 Yes [id number] TAKE 1 [facility] 5 mg tablet 8-09 TABLET BY [facility] 00:00: MOUTH [place] 00 EVERY DAY Medical Branch AMLODIPINE 2-0 Yes [id number] TAKE 1 [facility] 5 mg tablet 8-09 TABLET BY [facility] 00:00: MOUTH [place] 00 EVERY DAY Medical Branch AMLODIPINE 2-0 Yes [id number] TAKE 1 [facility] 5 mg tablet 8-09 TABLET BY [facility] 00:00: MOUTH [place] 00 EVERY DAY Medical Branch AMLODIPINE 2022-0 Yes [id number] TAKE 1 [facility] 5 mg tablet 8-09 TABLET BY [facility] 00:00: MOUTH [place] 00 EVERY DAY Medical Branch AMLODIPINE 2022-0 Yes [id number] TAKE 1 [facility] 5 mg tablet 8-09 TABLET BY [facility] 00:00: MOUTH [place] 00 EVERY DAY Medical Branch AMLODIPINE 2022-0 Yes [id number] TAKE 1 [facility] 5 mg tablet 8-09 TABLET BY [facility] 00:00: MOUTH [place] 00 EVERY DAY Medical Branch AMLODIPINE 2022-0 Yes [id number] TAKE 1 [facility] 5 mg tablet 8-09 TABLET BY [facility] 00:00: MOUTH [place] 00 EVERY DAY Medical Branch AMLODIPINE 2022-0 Yes [id number] TAKE 1 [facility] 5 mg tablet 8-09 TABLET BY [facility] 00:00: MOUTH [place] 00 EVERY DAY Medical Branch AMLODIPINE 2022-0 Yes [id number] TAKE 1 [facility] 5 mg tablet 8-09 TABLET BY [facility] 00:00: MOUTH [place] 00 EVERY DAY Medical Branch AMLODIPINE 2022-0 Yes [id number] TAKE 1 [facility] 5 mg tablet 8-09 TABLET BY [facility] 00:00: MOUTH [place] 00 EVERY DAY Medical Branch AMLODIPINE 2022-0 Yes [id number] TAKE 1 [facility] 5 mg tablet 8-09 TABLET BY [facility] 00:00: MOUTH [place] 00 EVERY DAY Medical Branch AMLODIPINE 2022-0 Yes [id number] TAKE 1 [facility] 5 mg tablet 8-09 TABLET BY [facility] 00:00: MOUTH [place] 00 EVERY DAY Medical Branch AMLODIPINE 2022-0 Yes [id number] TAKE 1 [facility] 5 mg tablet 8-09 TABLET BY [facility] 00:00: MOUTH [place] 00 EVERY DAY Medical Branch AMLODIPINE 2022-0 Yes [id number] TAKE 1 [facility] 5 mg tablet 8-09 TABLET BY [facility] 00:00: MOUTH [place] 00 EVERY DAY Medical Branch AMLODIPINE 2022-0 Yes [id number] TAKE 1 [facility] 5 mg tablet 8-09 TABLET BY [facility] 00:00: MOUTH [place] 00 EVERY DAY Medical Branch AMLODIPINE 2022-0 Yes [id number] TAKE 1 [facility] 5 mg tablet 8-09 TABLET BY [facility] 00:00: MOUTH [place] 00 EVERY DAY Medical Branch AMLODIPINE 2022-0 Yes [id number] TAKE 1 [facility] 5 mg tablet 8-09 TABLET BY [facility] 00:00: MOUTH [place] 00 EVERY DAY Medical Branch AMLODIPINE 2021-0 Yes [id number] TAKE 1 [facility] 5 mg tablet 8-09 TABLET BY [facility] 00:00: MOUTH [place] 00 EVERY DAY Medical Branch AMLODIPINE 2021-0 Yes [id number] TAKE 1 [facility] 5 mg tablet 8-09 TABLET BY [facility] 00:00: MOUTH [place] 00 EVERY DAY Medical Branch AMLODIPINE 2021-0 Yes [id number] TAKE 1 [facility] 5 mg tablet 8-09 TABLET BY [facility] 00:00: MOUTH [place] 00 EVERY DAY Medical Branch AMLODIPINE 2021-0 Yes [id number] TAKE 1 [facility] 5 mg tablet 8-09 TABLET BY [facility] 00:00: MOUTH [place] 00 EVERY DAY Medical Branch AMLODIPINE 2021-0 Yes [id number] TAKE 1 [facility] 5 mg tablet 8-09 TABLET BY [facility] 00:00: MOUTH [place] 00 EVERY DAY Medical Branch AMLODIPINE 2021-0 Yes [id number] TAKE 1 [facility] 5 mg tablet 8-09 TABLET BY [facility] 00:00: MOUTH [place] 00 EVERY DAY Medical Branch AMLODIPINE 2021-0 Yes [id number] TAKE 1 [facility] 5 mg tablet 8-09 TABLET BY [facility] 00:00: MOUTH [place] 00 EVERY DAY Medical Branch AMLODIPINE 2021-0 Yes [id number] TAKE 1 [facility] 5 mg tablet 8-09 TABLET BY [facility] 00:00: MOUTH [place] 00 EVERY DAY Medical Branch trospium 20 2021-0 2022- No [id number] 20mg Take 1 [facility] mg tablet 07-0216 tablet by [facility] 00:00: 00:00 mouth [...] Indication s: chronic pain AMLODIPINE 2021-0 Yes [id number] TAKE 1 [facility] 5 mg tablet 5-31 TABLET BY [facility] 00:00: MOUTH [place] 00 EVERY DAY Medical Branch AMLODIPINE 0 Yes [id number] TAKE 1 [facility] 5 mg tablet 5-31 TABLET BY [facility] 00:00: MOUTH [place] 00 EVERY DAY Medical Branch AMLODIPINE 0 Yes [id number] TAKE 1 [facility] 5 mg tablet 5-31 TABLET BY [facility] 00:00: MOUTH [place] 00 EVERY DAY Medical Branch AMLODIPINE 2021-0 2021- No [id number] TAKE 1 [facility] 5 mg tablet 5-31 [...] s: chronic pain sulfamethox 2021-0 2021- No [id number] 1{tbl} Take 1 [facility] azole-trime 5-31 06-06 tablet by [facility] y of thoprim 00:00: 04:59 mouth 2 [place] (BACTRIM 00 :00 (two) Medical DS) 800-160 times Branch mg per daily for tablet 5 days. sulfamethox 2021-0 2021- No [id number] 1{tbl} Take 1 [facility] azole-trime 5-31 06-06 tablet by [facility] y of thoprim 00:00: 04:59 mouth 2 [place] (BACTRIM 00 :00 (two) Medical DS) 800-160 times Branch mg per daily for tablet 5 days. trospium 20 2021-0 Yes [id number] 20mg Take 1 [facility] mg tablet 5-26 tablet by [facility] o f 00:00: mouth (two) Medical times Branch daily. trospium 20 2021-0 Yes [id number] 20mg Take 1 [facility] mg tablet 5-26 tablet by [facility] o f 00:00: mouth (two) Medical times Branch daily. trospium 20 2021-0 Yes [id number] 20mg Take 1 [facility] mg tablet 5-26 tablet by [facility] o f 00:00: mouth (two) Medical times Branch daily. trospium 20 2021-0 Yes [id number] 20mg Take 1 [facility] mg tablet 5-26 tablet by [facility] o f 00:00: mouth (two) Medical times Branch daily. trospium 20 2021-0 Yes [id number] 20mg Take 1 [facility] mg tablet 5-26 tablet by [facility] o f 00:00: mouth (two) Medical times Branch daily. trospium 20 2021-0 Yes [id number] 20mg Take 1 [facility] mg tablet 5-26 tablet by [facility] o f 00:00: mouth (two) Medical times Branch daily. trospium 20 2021-0 Yes [id number] 20mg Take 1 [facility] mg tablet 5-26 tablet by [facility] o f 00:00: mouth (two) Medical times Branch daily. trospium 20 0 2021- No [id number] 20mg Take 1 [facility] mg tablet 5-26 08-09 tablet by [facility] 00:00: 00:00 mouth 2 00 :00 (two) Medical times Branch daily. oxybutynin 0 2021- No [id number] 10mg Take 1 [facility] 10 mg 24 hr 5-25 05-25 tablet by it y of tablet 00:00: 00:00 mouth [place] 00 :00 daily for Medical 1 day. Branch fenofibrate 2021-0 Yes [id number] 200mg Take 1 [facility] micronized 5-11 capsule by [facility] of 200 mg 00:00: mouth [place] capsule 00 daily with Medica l breakfast. Branch pravastatin 2021-0 Yes [id number] 80mg Take 1 [facility] 80 mg 5-11 tablet by [facility] tablet 00:00: mouth at [place] 00 bedtime. Medical Branch PARoxetine Yes [id number] 40mg Take 1 [facility] 40 mg 5-11 tablet by [facility] tablet 00:00: mouth [place] 00 daily. Medical Branch pantoprazol 2021-0 Yes [id number] 40mg Take 1 [facility] e 40 mg EC 5-11 tablet by [facility] tablet 00:00: mouth [place] 00 every Medical morning. Branch metFORMIN 2021-0 Yes [id number] 500mg Take 1 [facility] 500 mg 5-11 tablet by [facility] tablet 00:00: mouth (two) Medical times Branch daily with meals. carvediloL 0 Yes [id number] 12.5mg Take 1 [facility] 12.5 mg 5-11 tablet by [facility] tablet 00:00: mouth 2 (two) Medical times Branch daily. fenofibrate 0 Yes [id number] 200mg Take 1 [facility] micronized 5-11 capsule by [facility] of 200 mg 00:00: mouth [place] capsule 00 daily with Medica l breakfast. Branch pravastatin 2021-0 Yes [id number] 80mg Take 1 [facility] 80 mg 5-11 tablet by [facility] of tablet 00:00: mouth at [place] 00 bedtime. Medical Branch PARoxetine 2021-0 Yes [id number] 40mg Take 1 [facility] 40 mg 5-11 tablet by [facility] of tablet 00:00: mouth [place] 00 daily. Medical Branch pantoprazol 2021-0 Yes [id number] 40mg Take 1 [facility] e 40 mg EC 5-11 tablet by [facility] of tablet 00:00: mouth [place] 00 every Medical morning. Branch metFORMIN 2021-0 Yes [id number] 500mg Take 1 [facility] 500 mg 5-11 tablet by [facility] of tablet 00:00: mouth (two) Medical times Branch daily with meals. carvediloL 2021-0 Yes [id number] 12.5mg Take 1 [facility] 12.5 mg 5-11 tablet by [facility] of tablet 00:00: mouth 2 (two) Medical times Branch daily. fenofibrate 2021-0 Yes [id number] 200mg Take 1 [facility] micronized 5-11 capsule by [facility] of 200 mg 00:00: mouth [place] capsule 00 daily with Medica l breakfast. Branch pravastatin 2021-0 Yes [id number] 80mg Take 1 [facility] 80 mg 5-11 tablet by [facility] of tablet 00:00: mouth at [place] 00 bedtime. Medical Branch PARoxetine 2021-0 Yes [id number] 40mg Take 1 [facility] 40 mg 5-11 tablet by [facility] tablet 00:00: mouth [place] 00 daily. Medical Branch pantoprazol 2021-0 Yes [id number] 40mg Take 1 [facility] e 40 mg EC 5-11 tablet by [facility] of tablet 00:00: mouth [place] 00 every Medical morning. Branch metFORMIN 2021-0 Yes [id number] 500mg Take 1 [facility] 500 mg 5-11 tablet by [facility] of tablet 00:00: mouth (two) Medical times Branch daily with meals. carvediloL 2021-0 Yes [id number] 12.5mg Take 1 [facility] 12.5 mg 5-11 tablet by [facility] of tablet 00:00: mouth 2 (two) Medical times Branch daily. fenofibrate 2021-0 Yes [id number] 200mg Take 1 [facility] micronized 5-11 capsule by [facility] of 200 mg 00:00: mouth [place] capsule 00 daily with Medica l breakfast. Branch pravastatin 2021-0 Yes [id number] 80mg Take 1 [facility] 80 mg 5-11 tablet by [facility] of tablet 00:00: mouth at [place] 00 bedtime. Medical Branch PARoxetine 2021-0 Yes [id number] 40mg Take 1 [facility] 40 mg 5-11 tablet by [facility] of tablet 00:00: mouth [place] 00 daily. Medical Branch pantoprazol 2021-0 Yes [id number] 40mg Take 1 [facility] e 40 mg EC 5-11 tablet by [facility] of tablet 00:00: mouth 00 every Medical morning. Branch metFORMIN 2021-0 Yes [id number] 500mg Take 1 [facility] 500 mg 5-11 tablet by [facility] of tablet 00:00: mouth (two) Medical times Branch daily with meals. carvediloL 2021-0 Yes [id number] 12.5mg Take 1 [facility] 12.5 mg 5-11 tablet by [facility] of tablet 00:00: mouth 2 (two) Medical times Branch daily. fenofibrate 2021-0 Yes [id number] 200mg Take 1 [facility] micronized 5-11 capsule by [facility] of 200 mg 00:00: mouth [place] capsule 00 daily with Medica l breakfast. Branch pravastatin 2021-0 Yes [id number] 80mg Take 1 [facility] 80 mg 5-11 tablet by [facility] of tablet 00:00: mouth at [place] 00 bedtime. Medical Branch PARoxetine 0 Yes [id number] 40mg Take 1 [facility] 40 mg 5-11 tablet by [facility] of tablet 00:00: mouth [place] 00 daily. Medical Branch pantoprazol 0 Yes [id number] 40mg Take 1 [facility] e 40 mg EC 5-11 tablet by [facility] of tablet 00:00: mouth [place] 00 every Medical morning. Branch metFORMIN 0 Yes [id number] 500mg Take 1 [facility] 500 mg 5-11 tablet by [facility] of tablet 00:00: mouth 2 (two) Medical times Branch daily with meals. carvediloL 0 Yes [id number] 12.5mg Take 1 [facility] 12.5 mg 5-11 tablet by [facility] of tablet 00:00: mouth 2 (two) Medical times Branch daily. fenofibrate 0 Yes [id number] 200mg Take 1 [facility] micronized 5-11 capsule by [facility] of 200 mg 00:00: mouth [place] capsule 00 daily with Medica l breakfast. Branch pravastatin 0 Yes [id number] 80mg Take 1 [facility] 80 mg 5-11 tablet by [facility] of tablet 00:00: mouth at [place] 00 bedtime. Medical Branch PARoxetine 0 Yes [id number] 40mg Take 1 [facility] 40 mg 5-11 tablet by [facility] of tablet 00:00: mouth [place] 00 daily. Medical Branch pantoprazol 0 Yes [id number] 40mg Take 1 [facility] e 40 mg EC 5-11 tablet by [facility] of tablet 00:00: mouth [place] 00 every Medical morning. Branch metFORMIN 0 Yes [id number] 500mg Take 1 [facility] 500 mg 5-11 tablet by [facility] of tablet 00:00: mouth 2 (two) Medical times Branch daily with meals. carvediloL 2021-0 Yes [id number] 12.5mg Take 1 [facility] 12.5 mg 5-11 tablet by [facility] of tablet 00:00: mouth 2 00 (two) Medical times Branch daily. fenofibrate 2021-0 Yes [id number] 200mg Take 1 [facility] micronized 5-11 capsule by [facility] of 200 mg 00:00: mouth [place] capsule 00 daily with Medica l breakfast. Branch pravastatin Yes [id number] 80mg Take 1 [facility] 80 mg 5-11 tablet by [facility] of tablet 00:00: mouth at [place] 00 bedtime. Medical Branch PARoxetine 0 Yes [id number] 40mg Take 1 [facility] 40 mg 5-11 tablet by [facility] of tablet 00:00: mouth [place] 00 daily. Medical Branch pantoprazol 0 Yes [id number] 40mg Take 1 [facility] e 40 mg EC 5-11 tablet by [facility] of tablet 00:00: mouth [place] 00 every Medical morning. Branch metFORMIN 0 Yes [id number] 500mg Take 1 [facility] 500 mg 5-11 tablet by [facility] of tablet 00:00: mouth (two) Medical times Branch daily with meals. carvediloL Yes [id number] 12.5mg Take 1 [facility] 12.5 mg 5-11 tablet by [facility] of tablet 00:00: mouth 2 (two) Medical times Branch daily. fenofibrate 0 Yes [id number] 200mg Take 1 [facility] micronized 5-11 capsule by [facility] of 200 mg 00:00: mouth [place] capsule 00 daily with Medica l breakfast. Branch pravastatin 0 Yes [id number] 80mg Take 1 [facility] 80 mg 5-11 tablet by [facility] of tablet 00:00: mouth at [place] 00 bedtime. Medical Branch PARoxetine 0 Yes [id number] 40mg Take 1 [facility] 40 mg 5-11 tablet by [facility] of tablet 00:00: mouth [place] 00 daily. Medical Branch pantoprazol 2021-0 Yes [id number] 40mg Take 1 [facility] e 40 mg EC 5-11 tablet by [facility] of tablet 00:00: mouth [place] 00 every Medical morning. Branch metFORMIN 2021-0 Yes [id number] 500mg Take 1 [facility] 500 mg 5-11 tablet by [facility] of tablet 00:00: mouth 2 (two) Medical times Branch daily with meals. carvediloL 2021-0 Yes [id number] 12.5mg Take 1 [facility] 12.5 mg 5-11 tablet by [facility] of tablet 00:00: mouth 2 (two) Medical times Branch daily. fenofibrate 2021-0 Yes [id number] 200mg Take 1 [facility] micronized 5-11 capsule by [facility] of 200 mg 00:00: mouth [place] capsule 00 daily with Medica l breakfast. Branch pravastatin 0 Yes [id number] 80mg Take 1 [facility] 80 mg 5-11 tablet by [facility] of tablet 00:00: mouth at [place] 00 bedtime. Medical Branch PARoxetine 0 Yes [id number] 40mg Take 1 [facility] 40 mg 5-11 tablet by [facility] of tablet 00:00: mouth [place] 00 daily. Medical Branch pantoprazol 0 Yes [id number] 40mg Take 1 [facility] e 40 mg EC 5-11 tablet by ity of tablet 00:00: mouth 00 every Medical morning. Branch metFORMIN 2021-0 Yes [id number] 500mg Take 1 [facility] 500 mg 5-11 tablet by ity of tablet 00:00: mouth (two) Medical times Branch daily with meals. carvediloL 0 Yes [id number] 12.5mg Take 1 [facility] 12.5 mg 5-11 tablet by ity of tablet 00:00: mouth (two) Medical times Branch daily. fenofibrate 2021-0 Yes [id number] 200mg Take 1 [facility] micronized 5-11 capsule by [facility]y of 200 mg 00:00: mouth [place] capsule 00 daily with Medica l breakfast. Branch pravastatin 0 Yes [id number] 80mg Take 1 [facility] 80 mg 5-11 tablet by [facility] of tablet 00:00: mouth at 00 bedtime. Medical Branch PARoxetine 2021-0 Yes [id number] 40mg Take 1 [facility] 40 mg 5-11 tablet by [facility] of tablet 00:00: mouth 00 daily. Medical Branch pantoprazol 2021-0 Yes [id number] 40mg Take 1 [facility] e 40 mg EC 5-11 tablet by [facility] of tablet 00:00: mouth 00 every Medical morning. Branch metFORMIN 2021-0 Yes [id number] 500mg Take 1 [facility] 500 mg 5-11 tablet by [facility] of tablet 00:00: mouth (two) Medical times Branch daily with meals. carvediloL 2021-0 Yes [id number] 12.5mg Take 1 [facility] 12.5 mg 5-11 tablet by it[facility] of tablet 00:00: mouth 2 (two) Medical times Branch daily. fenofibrate 2021-0 Yes [id number] 200mg Take 1 [facility] micronized 5-11 capsule by [facility] of 200 mg 00:00: mouth [place] capsule 00 daily with Medica l breakfast. Branch pravastatin 2021-0 Yes [id number] 80mg Take 1 [facility] 80 mg 5-11 tablet by [facility] of tablet 00:00: mouth at [place] 00 bedtime. Medical Branch PARoxetine 2021-0 Yes [id number] 40mg Take 1 [facility] 40 mg 5-11 tablet by [facility] of tablet 00:00: mouth [place] 00 daily. Medical Branch pantoprazol 2021-0 Yes [id number] 40mg Take 1 [facility] e 40 mg EC 5-11 tablet by [facility] of tablet 00:00: mouth 00 every Medical morning. Branch metFORMIN 2021-0 Yes [id number] 500mg Take 1 [facility] 500 mg 5-11 tablet by [facility] of tablet 00:00: mouth (two) Medical times Branch daily with meals. carvediloL 2021-0 Yes [id number] 12.5mg Take 1 [facility] 12.5 mg 5-11 tablet by it[facility] of tablet 00:00: mouth 2 (two) Medical times Branch daily. fenofibrate 2021-0 Yes [id number] 200mg Take 1 [facility] micronized 5-11 capsule by [facility]y of 200 mg 00:00: mouth [place] capsule 00 daily with Medica l breakfast. Branch pravastatin 2021-0 Yes [id number] 80mg Take 1 [facility] 80 mg 5-11 tablet by [facility] of tablet 00:00: mouth at [place] 00 bedtime. Medical Branch PARoxetine 2021-0 Yes [id number] 40mg Take 1 [facility] 40 mg 5-11 tablet by [facility] of tablet 00:00: mouth [place] 00 daily. Medical Branch pantoprazol 2021-0 Yes [id number] 40mg Take 1 [facility] e 40 mg EC 5-11 tablet by [facility] of tablet 00:00: mouth [place] 00 every Medical morning. Branch metFORMIN 2021-0 Yes [id number] 500mg Take 1 [facility] 500 mg 5-11 tablet by [facility] of tablet 00:00: mouth 2 (two) Medical times Branch daily with meals. carvediloL 2021-0 Yes [id number] 12.5mg Take 1 [facility] 12.5 mg 5-11 tablet by it[facility] of tablet 00:00: mouth 2 [place] 00 (two) Medical times Branch daily. fenofibrate 2021-0 Yes [id number] 200mg Take 1 [facility] micronized 5-11 capsule by [facility] of 200 mg 00:00: mouth [place] capsule 00 daily with Medica l breakfast. Branch pravastatin 2021-0 Yes [id number] 80mg Take 1 [facility] 80 mg 5-11 tablet by [facility] of tablet 00:00: mouth at [place] 00 bedtime. Medical Branch PARoxetine 2021-0 Yes [id number] 40mg Take 1 [facility] 40 mg 5-11 tablet by [facility] of tablet 00:00: mouth [place] 00 daily. Medical Branch pantoprazol 2021-0 Yes [id number] 40mg Take 1 [facility] e 40 mg EC 5-11 tablet by it[facility] of tablet 00:00: mouth 00 every Medical morning. Branch metFORMIN 2021-0 Yes [id number] 500mg Take 1 [facility] 500 mg 5-11 tablet by [facility] of tablet 00:00: mouth (two) Medical times Branch daily with meals. carvediloL 0 Yes [id number] 12.5mg Take 1 [facility] 12.5 mg 5-11 tablet by it[facility] of tablet 00:00: mouth (two) Medical times Branch daily. fenofibrate 2021-0 Yes [id number] 200mg Take 1 [facility] micronized 5-11 capsule by [facility] of 200 mg 00:00: mouth [place] capsule 00 daily with Medica l breakfast. Branch pravastatin 0 Yes [id number] 80mg Take 1 [facility] 80 mg 5-11 tablet by it[facility] of tablet 00:00: mouth at 00 bedtime. Medical Branch PARoxetine 2021-0 Yes [id number] 40mg Take 1 [facility] 40 mg 5-11 tablet by [facility] of tablet 00:00: mouth [place] 00 daily. Medical Branch pantoprazol 2021-0 Yes [id number] 40mg Take 1 [facility] e 40 mg EC 5-11 tablet by it[facility] of tablet 00:00: mouth [place] 00 every Medical morning. Branch metFORMIN 2021-0 Yes [id number] 500mg Take 1 [facility] 500 mg 5-11 tablet by [facility] of tablet 00:00: mouth 2 00 (two) Medical times Branch daily with meals. carvediloL 2021-0 Yes [id number] 12.5mg Take 1 [facility] 12.5 mg 5-11 tablet by ity of tablet 00:00: mouth 2 (two) Medical times Branch daily. fenofibrate 0 Yes [id number] 200mg Take 1 [facility] micronized 5-11 capsule by [facility]y of 200 mg 00:00: mouth [place] capsule 00 daily with Medica l breakfast. Branch pravastatin 0 Yes [id number] 80mg Take 1 [facility] 80 mg 5-11 tablet by [facility] of tablet 00:00: mouth at [place] 00 bedtime. Medical Branch PARoxetine 0 Yes [id number] 40mg Take 1 [facility] 40 mg 5-11 tablet by [facility] of tablet 00:00: mouth [place] 00 daily. Medical Branch pantoprazol 0 Yes [id number] 40mg Take 1 [facility] e 40 mg EC 5-11 tablet by it[facility] of tablet 00:00: mouth [place] 00 every Medical morning. Branch metFORMIN 0 Yes [id number] 500mg Take 1 [facility] 500 mg 5-11 tablet by it[facility] of tablet 00:00: mouth (two) Medical times Branch daily with meals. carvediloL Yes [id number] 12.5mg Take 1 [facility] 12.5 mg 5-11 tablet by ity of tablet 00:00: mouth (two) Medical times Branch daily. fenofibrate Yes [id number] 200mg Take 1 [facility] micronized 5-11 capsule by ity of 200 mg 00:00: mouth [place] capsule 00 daily with Medica l breakfast. Branch pravastatin 0 Yes [id number] 80mg Take 1 [facility] 80 mg 5-11 tablet by ity of tablet 00:00: mouth at [place] 00 bedtime. Medical Branch PARoxetine 0 Yes [id number] 40mg Take 1 [facility] 40 mg 5-11 tablet by it[facility] of tablet 00:00: mouth [place] 00 daily. Medical Branch pantoprazol 2021-0 Yes [id number] 40mg Take 1 [facility] e 40 mg EC 5-11 tablet by ity of tablet 00:00: mouth [place] 00 every Medical morning. Branch metFORMIN 0 Yes [id number] 500mg Take 1 [facility] 500 mg 5-11 tablet by ity of tablet 00:00: mouth 2 (two) Medical times Branch daily with meals. carvediloL 2022-0 Yes [id number] 12.5mg Take 1 [facility] 12.5 mg 5-11 tablet by [facility] of tablet 00:00: mouth 2 (two) Medical times Branch daily. fenofibrate 0 Yes [id number] 200mg Take 1 [facility] micronized 5-11 capsule by ity of 200 mg 00:00: mouth [place] capsule 00 daily with Medica l breakfast. Branch pravastatin 0 Yes [id number] 80mg Take 1 [facility] 80 mg 5-11 tablet by [facility] of tablet 00:00: mouth at [place] 00 bedtime. Medical Branch PARoxetine 0 Yes [id number] 40mg Take 1 [facility] 40 mg 5-11 tablet by [facility] of tablet 00:00: mouth [place] 00 daily. Medical Branch pantoprazol 0 Yes [id number] 40mg Take 1 [facility] e 40 mg EC 5-11 tablet by ity of tablet 00:00: mouth [place] 00 every Medical morning. Branch metFORMIN 0 Yes [id number] 500mg Take 1 [facility] 500 mg 5-11 tablet by ity of tablet 00:00: mouth (two) Medical times Branch daily with meals. carvediloL Yes [id number] 12.5mg Take 1 [facility] 12.5 mg 5-11 tablet by [facility]y of tablet 00:00: mouth (two) Medical times Branch daily. fenofibrate 0 Yes [id number] 200mg Take 1 [facility] micronized 5-11 capsule by ity of 200 mg 00:00: mouth [place] capsule 00 daily with Medica l breakfast. Branch pravastatin 2021-0 Yes [id number] 80mg Take 1 [facility] 80 mg 5-11 tablet by it[facility] of tablet 00:00: mouth at [place] 00 bedtime. Medical Branch PARoxetine 2021-0 Yes [id number] 40mg Take 1 [facility] 40 mg 5-11 tablet by [facility] of tablet 00:00: mouth [place] 00 daily. Medical Branch pantoprazol 2021-0 Yes [id number] 40mg Take 1 [facility] e 40 mg EC 5-11 tablet by ity of tablet 00:00: mouth [place] 00 every Medical morning. Branch metFORMIN 2021-0 Yes [id number] 500mg Take 1 [facility] 500 mg 5-11 tablet by [facility]y of tablet 00:00: mouth 2 (two) Medical times Branch daily with meals. carvediloL 0 Yes [id number] 12.5mg Take 1 [facility] 12.5 mg 5-11 tablet by [facility] of tablet 00:00: mouth 2 (two) Medical times [place] daily. fenofibrate 0 Yes [id number] 200mg Take 1 [facility] micronized 5-11 capsule by ity of 200 mg 00:00: mouth [place] capsule 00 daily with Medica l breakfast. Branch pantoprazol Yes [id number] 40mg Take 1 [facility] e 40 mg EC 5-11 tablet by ity of tablet 00:00: mouth [place] 00 every Medical morning. Branch pantoprazol Yes [id number] 40mg Take 1 [facility] e 40 mg EC 5-11 tablet by ity of tablet 00:00: mouth [place] 00 every Medical morning. Branch pantoprazol Yes [id number] 40mg Take 1 [facility] e 40 mg EC 5-11 tablet by ity of tablet 00:00: mouth [place] 00 every Medical morning. Branch pantoprazol Yes [id number] 40mg Take 1 [facility] e 40 mg EC 5-11 tablet by ity of tablet 00:00: mouth [place] 00 every Medical morning. Branch pantoprazol Yes [id number] 40mg Take 1 [facility] e 40 mg EC 5-11 tablet by ity of tablet 00:00: mouth [place] 00 every Medical morning. Branch pantoprazol Yes [id number] 40mg Take 1 [facility] e 40 mg EC 5-11 tablet by ity of tablet 00:00: mouth [place] 00 every Medical morning. Branch pantoprazol 0 Yes [id number] 40mg Take 1 [facility] e 40 mg EC 5-11 tablet by ity of tablet 00:00: mouth [place] 00 every Medical morning. Branch pantoprazol 0 Yes [id number] 40mg Take 1 [facility] e 40 mg EC 5-11 tablet by ity of tablet 00:00: mouth [place] 00 every Medical morning. Branch pantoprazol Yes [id number] 40mg Take 1 [facility] e 40 mg EC 5-11 tablet by ity of tablet 00:00: mouth [place] 00 every Medical morning. Branch pantoprazol 0 Yes [id number] 40mg Take 1 [facility] e 40 mg EC 5-11 tablet by ity of tablet 00:00: mouth [place] 00 every Medical morning. Branch pantoprazol 2021-0 Yes [id number] 40mg Take 1 [facility] e 40 mg EC 5-11 tablet by ity of tablet 00:00: mouth [place] 00 every Medical morning. Branch pantoprazol 2021-0 Yes [id number] 40mg Take 1 [facility] 40 mg EC 5-11 tablet by ity of tablet 00:00: mouth [place] 00 every Medical morning. Branch pantoprazol 2021-0 Yes [id number] 40mg Take 1 [facility] 40 mg EC 5-11 tablet by ity of tablet 00:00: mouth [place] 00 every Medical morning. Branch pantoprazol 2021-0 Yes [id number] 40mg Take 1 [facility] 40 mg EC 5-11 tablet by ity of tablet 00:00: mouth [place] 00 every Medical morning. Branch pantoprazol 2021-0 Yes [id number] 40mg Take 1 [facility] e 40 mg EC 5-11 tablet by ity of tablet 00:00: mouth [place] 00 every Medical morning. Branch pantoprazol 2021-0 Yes [id number] 40mg Take 1 [facility] 40 mg EC 5-11 tablet by ity of tablet 00:00: mouth [place] 00 every Medical morning. Branch pantoprazol 2021-0 Yes [id number] 40mg Take 1 [facility] 40 mg EC 5-11 tablet by ity of tablet 00:00: mouth [place] 00 every Medical morning. Branch pantoprazol 2021-0 Yes [id number] 40mg Take 1 [facility] 40 mg EC 5-11 tablet by ity of tablet 00:00: mouth [place] 00 every Medical morning. Branch pantoprazol 2021-0 Yes [id number] 40mg Take 1 [facility] 40 mg EC 5-11 tablet by ity of tablet 00:00: mouth [place] 00 every Medical morning. Branch pantoprazol 2021-0 Yes [id number] 40mg Take 1 [facility] 40 mg EC 5-11 tablet by ity of tablet 00:00: mouth [place] 00 every Medical morning. Branch pantoprazol 2021-0 Yes [id number] 40mg Take 1 [facility] 40 mg EC 5-11 tablet by ity of tablet 00:00: mouth [place] 00 every Medical morning. Branch pantoprazol 2021-0 Yes [id number] 40mg Take 1 [facility] 40 mg EC 5-11 tablet by ity of tablet 00:00: mouth [place] 00 every Medical morning. Branch pantoprazol Yes [id number] 40mg Take 1 [facility] e 40 mg EC 5-11 tablet by ity of tablet 00:00: mouth [place] 00 every Medical morning. Branch pantoprazol Yes [id number] 40mg Take 1 [facility] e 40 mg EC 5-11 tablet by ity of tablet 00:00: mouth [place] 00 every Medical morning. Branch pravastatin Yes [id number] 80mg Take 1 [facility] 80 mg 5-11 tablet by ity of tablet 00:00: mouth at [place] 00 bedtime. Medical Branch PARoxetine Yes [id number] 40mg Take 1 [facility] 40 mg 5-11 tablet by ity of tablet 00:00: mouth [place] 00 daily. Medical Branch pantoprazol Yes [id number] 40mg Take 1 [facility] 40 mg EC 5-11 tablet by ity of tablet 00:00: mouth [place] 00 every Medical morning. Branch metFORMIN Yes [id number] 500mg Take 1 [facility] 500 mg 5-11 tablet by ity of tablet 00:00: mouth 2 [place] 00 (two) Medical times Branch daily with meals. carvediloL Yes [id number] 12.5mg Take 1 [facility] 12.5 mg 5-11 tablet by ity of tablet 00:00: mouth 2 [place] 00 (two) Medical times Branch daily. pravastatin 2021- No [id number] 80mg Take 1 [facility] 80 mg 5-11 11-18 tablet by ity of tablet 00:00: 00:00 mouth at [place] 00 :00 bedtime. Medical Branch PARoxetine 2021- No [id number] 40mg Take 1 [facility] 40 mg 5-11 11-18 tablet by ity of tablet 00:00: 00:00 mouth [place] 00 :00 daily. Medical Branch metFORMIN 2021- No [id number] 500mg Take 1 [facility] 500 mg 5-11 11-18 tablet by ity of tablet 00:00: 00:00 mouth 2 [place] 00 :00 (two) Medical times Branch daily with meals. carvediloL 2021- No [id number] 12.5mg Take 1 [facility] 12.5 mg 5-10 04-18 tablet by ity of tablet 00:00: 00:00 mouth 2 [place] 00 :00 (two) Medical times Branch daily. fenofibrate 0 2021- No [id number] 200mg Take 1 [facility] micronized 5-11 -18 capsule by it y of 200 mg 00:00: 00:00 mouth [place] capsule 00 :00 daily with Medica l breakfast. Branch ASPIRIN 81 2021-0 Yes TAKE 1 Unive rs mg EC 5-10 TABLET BY ity of tablet 00:00: MOUTH [place] 00 EVERY DAY Medical Branch ASPIRIN 81 2021-0 Yes TAKE 1 Unive rs mg EC 5-10 TABLET BY ity of tablet 00:00: MOUTH [place] 00 EVERY DAY Medical Branch ASPIRIN 81 2021-0 Yes TAKE 1 Unive rs mg EC 5-10 TABLET BY ity of tablet 00:00: MOUTH [place] 00 EVERY DAY Medical Branch ASPIRIN 81 2021-0 Yes TAKE 1 Unive rs mg EC 5-10 TABLET BY ity of tablet 00:00: MOUTH [place] EVERY DAY Medical Branch ASPIRIN 81 2021-0 Yes TAKE 1 Unive rs mg EC 5-10 TABLET BY ity of tablet 00:00: MOUTH [place] 00 EVERY DAY Medical Branch ASPIRIN 81 2021-0 Yes TAKE 1 Unive rs mg EC 5-10 TABLET BY ity of tablet 00:00: MOUTH [place] 00 EVERY DAY Medical Branch ASPIRIN 81 2021-0 Yes TAKE 1 Unive rs mg EC 5-10 TABLET BY ity of tablet 00:00: MOUTH [place] EVERY DAY Medical Branch ASPIRIN 81 2021-0 Yes TAKE 1 Unive rs mg EC 5-10 TABLET BY ity of tablet 00:00: MOUTH [place] EVERY DAY Medical Branch ASPIRIN 81 2021-0 Yes TAKE 1 Unive rs mg EC 5-10 TABLET BY ity of tablet 00:00: MOUTH [place] EVERY DAY Medical Branch ASPIRIN 81 2021-0 Yes TAKE 1 Unive rs mg EC 5-10 TABLET BY ity of tablet 00:00: MOUTH [place] 00 EVERY DAY Medical Branch ASPIRIN 81 2021-0 Yes TAKE 1 Unive rs mg EC 5-10 TABLET BY ity of tablet 00:00: MOUTH [place] 00 EVERY DAY Medical Branch ASPIRIN 81 2021-0 Yes TAKE 1 Unive rs mg EC 5-10 TABLET BY ity of tablet 00:00: MOUTH [place] 00 EVERY DAY Medical Branch ASPIRIN 81 [...] TABLET BY ity of tablet 00:00: MOUTH [place] EVERY DAY Medical Branch ASPIRIN 81 2021-0 Yes TAKE 1 Unive rs mg EC 5-10 TABLET BY ity of tablet 00:00: MOUTH EVERY DAY Medical Branch ASPIRIN 81 2021-0 Yes TAKE 1 Unive rs mg EC 5-10 TABLET BY ity of tablet 00:00: MOUTH [place] EVERY DAY Medical Branch ASPIRIN 81 2021-0 [...] 5-10 TABLET BY ity of tablet 00:00: [facility] EVERY DAY Medical Branch ASPIRIN 81 2021-0 [...] TABLET BY ity of tablet 00:00: MOUTH [place] EVERY DAY Medical Branch ASPIRIN 81 2021-0 2022- No TAKE 1 Univ ers mg EC 5-10 12-08 TABLET BY ity of tablet 00:00: 00:00 MOUTH [place] 00 :00 EVERY DAY Medical Branch OXYBUTYNIN 2021-0 2021- No [id number] TAKE 1 Univers XL 5 mg 24 [...] TO 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 apixaban 0 Yes TAKE 1 Univers (ELIQUIS) 5 5-02 TABLET BY ity of mg tablet 00:00: MOUTH [place] 00 TWICE A Medical DAY TO Branch 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 Indication s: chronic pain AMLODIPINE Yes [id number] TAKE 1 U nivers 5 mg tablet 3-03 TABLET BY ity of 00:00: MOUTH [place] 00 EVERY DAY Medical Branch AMLODIPINE Yes [id number] TAKE 1 U nivers 5 mg tablet 3-03 TABLET BY ity of 00:00: MOUTH [place] 00 EVERY DAY Medical Branch AMLODIPINE Yes [id number] TAKE 1 U nivers 5 mg tablet 3-03 TABLET BY ity of 00:00: MOUTH [place] 00 EVERY DAY Medical Branch AMLODIPINE 0 2021- No [id number] TAKE 1 Univers 5 mg tablet 01-24 TABLET BY it y of 00:00: 00:00 MOUTH [place] 00 :00 EVERY DAY Medical Branch Immunizations Ordered Filled Immunization Date Status Comments [facility] Immunization Name Name SARS-COV-2 COVID-19 2022-04-03 [...] Completed Unive rsity of PFIZER VACCINE 00:00:00 [facility] Branch SARS-COV-2 COVID-19 2021-01-05 Completed Unive rsity of PFIZER VACCINE 00:00:00 [facility] Branch SARS-COV-2 COVID-19 2021-01-05 Completed Unive rsity of PFIZER VACCINE 00:00:00 [facility] Branch SARS-COV-2 COVID-19 2021-01-05 Completed Unive rsity of PFIZER VACCINE 00:00:00 [facility] Branch SARS-COV-2 COVID-19 2021-01-05 Completed Unive rsity of PFIZER VACCINE 00:00:00 [facility] Branch SARS-COV-2 COVID-19 2021-01-05 Completed Unive rsity of PFIZER VACCINE 00:00:00 [facility] Branch SARS-COV-2 COVID-19 2021-01-05 Completed Unive rsity of PFIZER VACCINE 00:00:00 [facility] Branch SARS-COV-2 COVID-19 2021-01-05 Completed Unive rsity of PFIZER VACCINE 00:00:00 [facility] Branch SARS-COV-2 COVID-19 2021-01-05 Completed Unive rsity of PFIZER VACCINE 00:00:00 [facility] Branch SARS-COV-2 COVID-19 2021-01-05 Completed Unive rsity of PFIZER VACCINE 00:00:00 [facility] Branch SARS-COV-2 COVID-19 2021-01-05 Completed Unive rsity of PFIZER VACCINE 00:00:00 [facility] Branch SARS-COV-2 COVID-19 2021-01-05 Completed Unive rsity of PFIZER VACCINE 00:00:00 [facility] Branch SARS-COV-2 COVID-19 2021-01-05 Completed Unive rsity of PFIZER VACCINE 00:00:00 [facility] Branch SARS-COV-2 COVID-19 2021-01-05 Completed Unive rsity of PFIZER VACCINE 00:00:00 [facility] SARS-COV-2 COVID-19 2021-01-05 Completed Unive rsity of PFIZER VACCINE 00:00:00 [facility] Branch SARS-COV-2 COVID-19 2021-01-05 Completed Unive rsity of PFIZER VACCINE 00:00:00 [facility] Branch SARS-COV-2 COVID-19 2021-01-05 Completed Unive rsity of PFIZER VACCINE 00:00:00 [facility] Branch SARS-COV-2 COVID-19 2021-01-05 Completed Unive rsity of PFIZER VACCINE 00:00:00 [facility] Branch SARS-COV-2 COVID-19 2021-01-05 Completed Unive rsity of PFIZER VACCINE 00:00:00 [facility] Branch SARS-COV-2 COVID-19 2021-01-05 Completed Unive rsity of PFIZER VACCINE 00:00:00 [facility] Branch SARS-COV-2 COVID-19 2021-01-05 Completed Unive rsity of PFIZER VACCINE 00:00:00 [facility] Branch SARS-COV-2 COVID-19 2021-01-05 Completed Unive rsity of PFIZER VACCINE 00:00:00 [facility] Branch SARS-COV-2 COVID-19 2021-01-05 Completed Unive rsity of PFIZER VACCINE 00:00:00 [facility] Branch SARS-COV-2 COVID-19 2021-01-05 Completed Unive rsity of PFIZER VACCINE 00:00:00 [facility] Branch SARS-COV-2 COVID-19 2021-01-05 Completed Unive rsity of PFIZER VACCINE 00:00:00 [facility] Branch SARS-COV-2 COVID-19 2021-01-05 Completed Unive rsity of PFIZER VACCINE 00:00:00 [facility] Branch SARS-COV-2 COVID-19 2021-01-05 Completed Unive rsity of PFIZER VACCINE 00:00:00 [facility] Branch SARS-COV-2 COVID-19 2021-01-05 Completed Unive rsity of PFIZER VACCINE 00:00:00 [facility] Branch SARS-COV-2 COVID-19 2021-01-05 Completed Unive rsity of PFIZER VACCINE 00:00:00 [facility] Branch SARS-COV-2 COVID-19 2021-01-05 Completed Unive rsity of PFIZER VACCINE 00:00:00 [facility] SARS-COV-2 COVID-19 2021-01-05 Completed Unive rsity of PFIZER VACCINE 00:00:00 [place] [facility] SARS-COV-2 COVID-19 2021-01-05 Completed Unive rsity of PFIZER VACCINE 00:00:00 [facility] Branch SARS-COV-2 COVID-19 2021-01-05 Completed Unive rsity of PFIZER VACCINE 00:00:00 [facility] Branch SARS-COV-2 COVID-19 2021-01-05 Completed Unive rsity of PFIZER VACCINE 00:00:00 [facility] Branch SARS-COV-2 COVID-19 2021-01-05 Completed Unive rsity of PFIZER VACCINE 00:00:00 [facility] Branch SARS-COV-2 COVID-19 2021-01-05 Completed Unive rsity of PFIZER VACCINE 00:00:00 [facility] Branch SARS-COV-2 COVID-19 2021-01-05 Completed Unive rsity of PFIZER VACCINE 00:00:00 [facility] Branch SARS-COV-2 COVID-19 2021-01-05 Completed Unive rsity of PFIZER VACCINE 00:00:00 [facility] Branch SARS-COV-2 COVID-19 2021-01-05 Completed Unive rsity of PFIZER VACCINE 00:00:00 [facility] Branch SARS-COV-2 COVID-19 2021-01-05 Completed Unive rsity of PFIZER VACCINE 00:00:00 [facility] Branch SARS-COV-2 COVID-19 2021-01-05 Completed Unive rsity of PFIZER VACCINE 00:00:00 [facility] Branch SARS-COV-2 COVID-19 2020-12-15 Completed Unive rsity of PFIZER VACCINE 00:00:00 [facility] Branch SARS-COV-2 COVID-19 2020-12-15 Completed Unive rsity of PFIZER VACCINE 00:00:00 [facility] Branch SARS-COV-2 COVID-19 2020-12-15 Completed Unive rsity of PFIZER VACCINE 00:00:00 [facility] Branch SARS-COV-2 COVID-19 2020-12-15 Completed Unive rsity of PFIZER VACCINE 00:00:00 [facility] Branch SARS-COV-2 COVID-19 2020-12-15 Completed Unive rsity of PFIZER VACCINE 00:00:00 [facility] Branch SARS-COV-2 COVID-19 2020-12-15 Completed Unive rsity of PFIZER VACCINE 00:00:00 [facility] SARS-COV-2 COVID-19 2020-12-15 Completed Unive rsity of PFIZER VACCINE 00:00:00 [facility] Branch SARS-COV-2 COVID-19 2020-12-15 Completed Unive rsity of PFIZER VACCINE 00:00:00 [facility] SARS-COV-2 COVID-19 2020-12-15 Completed Unive rsity of PFIZER VACCINE 00:00:00 [facility] Branch SARS-COV-2 COVID-19 2020-12-15 Completed Unive rsity of PFIZER VACCINE 00:00:00 [facility] SARS-COV-2 COVID-19 2020-12-15 Completed Unive rsity of PFIZER VACCINE 00:00:00 [facility] Branch SARS-COV-2 COVID-19 2020-12-15 Completed Unive rsity of PFIZER VACCINE 00:00:00 [facility] SARS-COV-2 COVID-19 2020-12-15 Completed Unive rsity of PFIZER VACCINE 00:00:00 [facility] SARS-COV-2 COVID-19 2020-12-15 Completed Unive rsity of PFIZER VACCINE 00:00:00 [facility] SARS-COV-2 COVID-19 2020-12-15 Completed Unive rsity of PFIZER VACCINE 00:00:00 [facility] SARS-COV-2 COVID-19 2020-12-15 Completed Unive rsity of PFIZER VACCINE 00:00:00 [facility] SARS-COV-2 COVID-19 2020-12-15 Completed Unive rsity of PFIZER VACCINE 00:00:00 [facility] Branch SARS-COV-2 COVID-19 2020-12-15 Completed Unive rsity of PFIZER VACCINE 00:00:00 [facility] SARS-COV-2 COVID-19 2020-12-15 Completed Unive rsity of PFIZER VACCINE 00:00:00 [facility] SARS-COV-2 COVID-19 2020-12-15 Completed Unive rsity of PFIZER VACCINE 00:00:00 [facility] SARS-COV-2 COVID-19 2020-12-15 Completed Unive rsity of PFIZER VACCINE 00:00:00 [facility] SARS-COV-2 COVID-19 2020-12-15 Completed Unive rsity of PFIZER VACCINE 00:00:00 [facility] Branch SARS-COV-2 COVID-19 2020-12-15 Completed Unive rsity of PFIZER VACCINE 00:00:00 [facility] Branch SARS-COV-2 COVID-19 2020-12-15 Completed Unive rsity of PFIZER VACCINE 00:00:00 [facility] Branch SARS-COV-2 COVID-19 2020-12-15 Completed Unive rsity of PFIZER VACCINE 00:00:00 [facility] Branch SARS-COV-2 COVID-19 2020-12-15 Completed Unive rsity of PFIZER VACCINE 00:00:00 [facility] Branch SARS-COV-2 COVID-19 2020-12-15 Completed Unive rsity of PFIZER VACCINE 00:00:00 [facility] Branch SARS-COV-2 COVID-19 2020-12-15 Completed Unive rsity of PFIZER VACCINE 00:00:00 [facility] Branch SARS-COV-2 COVID-19 2020-12-15 Completed Unive rsity of PFIZER VACCINE 00:00:00 [facility] Branch SARS-COV-2 COVID-19 2020-12-15 Completed Unive rsity of PFIZER VACCINE 00:00:00 [facility] Branch SARS-COV-2 COVID-19 2020-12-15 Completed Unive rsity of PFIZER VACCINE 00:00:00 [facility] Branch SARS-COV-2 COVID-19 2020-12-15 Completed Unive rsity of PFIZER VACCINE 00:00:00 [facility] Branch SARS-COV-2 COVID-19 2020-12-15 Completed Unive rsity of PFIZER VACCINE 00:00:00 [facility] Branch SARS-COV-2 COVID-19 2020-12-15 Completed Unive rsity of PFIZER VACCINE 00:00:00 [facility] Branch SARS-COV-2 COVID-19 2020-12-15 Completed Unive rsity of PFIZER VACCINE 00:00:00 [facility] Branch SARS-COV-2 COVID-19 2020-12-15 Completed Unive rsity of PFIZER VACCINE 00:00:00 [facility] SARS-COV-2 COVID-19 2020-12-15 Completed Unive rsity of PFIZER VACCINE 00:00:00 [facility] SARS-COV-2 COVID-19 2020-12-15 Completed Unive rsity of PFIZER VACCINE 00:00:00 [facility] SARS-COV-2 COVID-19 2020-12-15 Completed Unive rsity of PFIZER VACCINE 00:00:00 [facility] SARS-COV-2 COVID-19 2020-12-15 Completed Unive rsity of PFIZER VACCINE 00:00:00 [facility] SARS-COV-2 COVID-19 2020-12-15 Completed Unive rsity of PFIZER VACCINE 00:00:00 [facility] SARS-COV-2 COVID-19 2020-12-15 Completed Unive rsity of PFIZER VACCINE 00:00:00 [facility] SARS-COV-2 COVID-19 2020-12-15 Completed Unive rsity of PFIZER VACCINE 00:00:00 [facility] Influenza High Dose 2020-08-24 Completed Unive rsity of 00:00:00 [facility] Influenza High Dose 2020-08-24 Completed Unive rsity of 00:00:00 [facility] Influenza High Dose 2020-08-24 Completed Unive rsity of 00:00:00 [facility] Influenza High Dose 2020-08-24 Completed Unive rsity of 00:00:00 [facility] Influenza High Dose 2020-08-24 Completed Unive rsity of 00:00:00 [facility] Influenza High Dose 2020-08-24 Completed Unive rsity of 00:00:00 [facility] Influenza High Dose 2020-08-24 Completed Unive rsity of 00:00:00 [facility] Influenza High Dose 2020-08-24 Completed Unive rsity of 00:00:00 [facility] Influenza High Dose 2020-08-24 Completed Unive rsity of 00:00:00 [facility] Influenza High Dose 2020-08-24 Completed Unive rsity of 00:00:00 [facility] Influenza High Dose 2020-08-24 Completed Unive rsity of 00:00:00 [facility] Influenza High Dose 2020-08-24 Completed Unive rsity of 00:00:00 [facility] Influenza High Dose 2020-08-24 Completed Unive rsity of 00:00:00 [facility] Influenza High Dose 2020-08-24 Completed Unive rsity of 00:00:00 [facility] Influenza High Dose 2020-08-24 Completed Unive rsity of 00:00:00 [facility] Influenza High Dose 2020-08-24 Completed Unive rsity of 00:00:00 [facility] Influenza High Dose 2020-08-24 Completed Unive rsity of 00:00:00 [facility] Influenza High Dose 2020-08-24 Completed Unive rsity of 00:00:00 [facility] Influenza High Dose 2020-08-24 Completed Unive rsity of 00:00:00 [facility] Influenza High Dose 2020-08-24 Completed Unive rsity of 00:00:00 [facility] Influenza High Dose 2020-08-24 Completed Unive rsity of 00:00:00 [facility] Influenza High Dose 2020-08-24 Completed Unive rsity of 00:00:00 [facility] Influenza High Dose 2020-08-24 Completed Unive rsity of 00:00:00 [facility] Influenza High Dose 2020-08-24 Completed Unive rsity of 00:00:00 [facility] Influenza High Dose 2020-08-24 Completed Unive rsity of 00:00:00 [facility] Influenza High Dose 2020-08-24 Completed Unive rsity of 00:00:00 [facility] Influenza High Dose 2020-08-24 Completed Unive rsity of 00:00:00 [facility] Influenza High Dose 2020-08-24 Completed Unive rsity of 00:00:00 [facility] Influenza High Dose 2020-08-24 Completed Unive rsity of 00:00:00 [facility] Influenza High Dose 2020-08-24 Completed Unive rsity of 00:00:00 [facility] Influenza High Dose 2020-08-24 Completed Unive rsity of 00:00:00 [facility] Influenza High Dose 2020-08-24 Completed Unive rsity of 00:00:00 [facility] Influenza High Dose 2020-08-24 Completed Unive rsity of 00:00:00 [facility] Influenza High Dose 2020-08-24 Completed Unive rsity of 00:00:00 [facility] Influenza High Dose 2020-08-24 Completed Unive rsity of 00:00:00 [facility] Influenza High Dose 2020-08-24 Completed Unive rsity of 00:00:00 [facility] Influenza High Dose 2020-08-24 Completed Unive rsity of 00:00:00 [facility] Influenza High Dose 2020-08-24 Completed Unive rsity of 00:00:00 [facility] Influenza High Dose 2020-08-24 Completed Unive rsity of 00:00:00 [facility] Influenza High Dose 2020-08-24 Completed Unive rsity of 00:00:00 [facility] Influenza High Dose 2020-08-24 Completed Unive rsity of 00:00:00 [facility] Influenza High Dose 2020-08-24 Completed Unive rsity of 00:00:00 [facility] Influenza High Dose 2020-08-24 Completed Unive rsity of 00:00:00 [facility] Vital Signs Vital Name Observation Time Observation Value Comments Source Systolic blood 2022-12-03 102 mm[Hg] [facility] of pressure 18:12:00 [facility] Diastolic blood 2022-12-03 54 mm[Hg] University o f pressure 18:12:00 [facility] Heart rate 2022-12-03 77 /min [place] [facility] 18:12:00 [facility] Body temperature 2022-12-03 35.83 [place] [facility] of 18:12:00 [facility] Oxygen saturation 2022-12-03 99 /min [facility] Arterial blood 18:12:00 [facility] by Pulse oximetry [place] Respiratory rate 2022-12-03 16 /min University of 14:25:00 [facility] Body weight 2022-12-02 60.464 kg University of 09:44:00 [facility] BMI 2022-12-02 22.88 kg/m2 University of 09:44:00 [facility] Body height 2022-11-28 162.6 cm University of 21:32:00 [facility] Systolic blood 2022-11-28 64 mm[Hg] University of pressure 17:14:00 [facility] Diastolic blood 2022-11-28 39 mm[Hg] University o f pressure 17:14:00 [facility] Heart rate 2022-11-28 87 /min University of 17:14:00 [facility] Body height 2022-11-28 162.6 cm University of 17:12:00 [facility] Body weight 2022-11-28 54.885 kg University of 17:12:00 [facility] BMI 2022-11-28 20.77 kg/m2 University of 17:12:00 [place] [facility] Oxygen saturation 2022-11-28 98 /min University of in Arterial blood 17:12:00 [facility]andra by Pulse oximetry Branch Systolic blood 2022-11-03 128 mm[Hg] University of pressure 13:49:00 [facility] Diastolic blood 2022-11-03 69 mm[Hg] University o f pressure 13:49:00 [facility] Heart rate 2022-11-03 80 /min University of 13:49:00 [facility] Body temperature 2022-11-03 36.11 [place] [facility] 13:49:00 [facility] Respiratory rate 2022-11-03 18 /min University of 13:49:00 [facility] Oxygen saturation 2022-11-03 97 /min University of in Arterial blood 13:49:00 [facility]andra by Pulse oximetry Branch Body weight 2022-11-03 72.984 kg University of 09:51:00 [facility] BMI 2022-11-03 27.62 kg/m2 [facility] 09[facility]51:00 [facility] System Body height 2022-10-31 162.6 cm University of 22:07:00 [facility] Systolic blood 2022-10-30 171 mm[Hg] University of pressure 15:01:00 [facility] Diastolic blood 2022-10-30 83 mm[Hg] University o f pressure 15:01:00 [facility] Heart rate 2022-10-30 96 /min University of 15:00:00 [facility] Body temperature 2022-10-30 37.22 [place] University of 15:00:00 [facility] Body height 2022-10-30 162.6 cm University of 15:00:00 [facility] Body weight 2022-10-30 68.539 kg University of 15:00:00 [facility] BMI 2022-10-30 25.94 kg/m2 University of 15:00:00 [facility] Oxygen saturation 2022-10-30 94 /min University of in Arterial blood 15:00:00 [place] [facility] by Pulse oximetry Branch Heart rate 2022-07-17 65 /min University of 16:15:00 [facility] Respiratory rate 2022-07-17 18 /min University of 16:15:00 [facility] Oxygen saturation 2022-07-17 99 /min University of in Arterial blood 16:15:00 [place] [facility] aleksandra by Pulse oximetry Branch Systolic blood 2022-07-17 196 mm[Hg] University of pressure 16:10:00 [facility] Diastolic blood 2022-07-17 63 mm[Hg] University o f pressure 16:10:00 [facility] Body temperature 2022-07-17 36.5 [place] University of 15:55:00 [facility] BMI 2022-07-17 25.01 kg/m2 University of 14:21:00 [facility] Body height 2022-07-17 162.6 cm University of 14:21:00 [facility] Body weight 2022-07-17 66.1 kg University of 14:21:00 [facility] Respiratory rate 2022-07-17 18 /min University of 15:52:00 [facility] Body height 2022-07-17 162.6 cm University of 14:21:00 [facility] Body weight 2022-07-17 66.1 kg University of 14:21:00 [facility] BMI 2022-07-17 25.01 kg/m2 University of 14:21:00 [facility] Systolic blood 2022-07-17 181 mm[Hg] University of pressure 14:00:00 [facility] Diastolic blood 2022-07-17 71 mm[Hg] University o f pressure 14:00:00 [facility] Heart rate 2022-07-17 71 /min University of 14:00:00 [facility] Body temperature 2022-07-17 37.06 [place] University of 13:53:00 [facility] Respiratory rate 2022-07-17 18 /min University of 13:53:00 [facility] Oxygen saturation 2022-07-17 99 /min University in Arterial blood 13:53:00 [facility] Pulse oximetry [place] Systolic blood 2022-04-17 160 mm[Hg] Pt denies any University o f pressure 19:19:00 chest pain [facility] Diastolic blood 2022-04-17 75 mm[Hg] Pt denies any University of pressure 19:19:00 chest pain [facility] Heart rate 2022-04-17 64 /min University of 19:03:00 [facility] Body temperature 2022-04-17 36.06 [place] University of 19:03:00 [facility] Respiratory rate 2022-04-17 18 /min University of 19:03:00 [facility] Body height 2022-04-17 162.6 cm University of 19:03:00 [facility] Body weight 2022-04-17 66.134 kg [facility] 19:03:00 [facility] BMI 2022-04-17 25.03 kg/m2 [facility] 19:03:00 [facility] Oxygen saturation 2022-04-17 99 /min [facility] Arterial blood 19:03:00 [facility] by Pulse oximetry [place] Procedures Procedure Date / Time Performing Source Performed Clinician POCT GLUCOSE (AUTOMATED) 2022-12-03 Tish Bennett [facility] 18:13:00 [facility] POCT GLUCOSE (AUTOMATED) 2022-12-03 Tish Bennett [facility] 14:26:00 [facility] MAGNESIUM 2022-12-03 Ha[facility] 11:57:00 [facility] BASIC METABOLIC PANEL (NA, K, 2022-12-03 Hailey [facility] CL, CO2, GLUCOSE, BUN, 11:57:00 Medical [facility] ranch CREATININE, CA) CBC WITH DIFF 2022-12-03 Hailey [facility] 11:57:00 [facility] POCT GLUCOSE (AUTOMATED) 2022-12-03 Tish Bennett [facility] 02:18:00 [facility] POCT GLUCOSE (AUTOMATED) 2022-12-02 Tish Bennett [facility] 23:11:00 [facility] POCT GLUCOSE (AUTOMATED) 2022-12-02 Tish Bennett [facility] 17:47:00 [facility] POCT GLUCOSE (AUTOMATED) 2022-12-02 Tish Bennett [facility] 14:00:00 [facility] BASIC METABOLIC PANEL (NA, K, 2022-12-02 Jerrica Carranza [facility] CL, CO2, GLUCOSE, BUN, 10:32:00 Medical B ranch CREATININE, CA) EXTERNAL PROVIDER RECORDS 2022-12-02 Doctor Unassigned, [facility] [place] 06:01:00 [place] [facility] POCT GLUCOSE (AUTOMATED) 2022-12-02 Tish Bennett [facility] 02:45:00 [facility] POCT GLUCOSE (AUTOMATED) 2022-12-01 Tish Bennett [facility] 22:27:00 [facility] POCT GLUCOSE (AUTOMATED) 2022-12-01 Tish Bennett [facility] 17:32:00 Medical [place] POCT GLUCOSE (AUTOMATED) 2022-12-01 [facility] 13:52:00 Medical Branch BASIC METABOLIC PANEL (NA, K, 2022-12-01 Jerrica Carranza [facility] CL, CO2, GLUCOSE, BUN, 10:21:00 Medical B ran CREATININE, CA) CBC WITH DIFF 2022-12-01 Dillon [facility] [place] 10:21:00 Medical Branch POCT GLUCOSE (AUTOMATED) 2022-12-01 [facility] 03:11:00 Medical [place] POCT GLUCOSE (AUTOMATED) 2022-11-30 [facility] 23:53:00 Medical [place] POCT GLUCOSE (AUTOMATED) 2022-11-30 [facility] 23:30:00 [facility] POCT GLUCOSE (AUTOMATED) 2022-11-30 [facility] 23:17:00 [facility] POCT GLUCOSE (AUTOMATED) 2022-11-30 [facility] 23:05:00 [facility] POCT GLUCOSE (AUTOMATED) 2022-11-30 [facility] 17:29:00 Medical [place] POCT GLUCOSE (AUTOMATED) 2022-11-30 [facility] 13:51:00 [facility] CORTISOL AM 2022-11-30 [facility] 10:28:00 [facility] [place] BASIC METABOLIC PANEL (NA, K, 2022-11-30 Jerrica Carranza [facility] CL, CO2, GLUCOSE, BUN, 10:28:00 Medical B ran CREATININE, CA) CBC WITH DIFF 2022-11-30 Dillon [facility] o [facility] 10:28:00 Medical Branch POCT GLUCOSE (AUTOMATED) 2022-11-30 [facility] 02:44:00 [facility] URINALYSIS 2022-11-30 [facility] 00:36:00 Medical Branch URINE CULTURE 2022-11-30 [facility] xas 00:36:00 [facility] POCT GLUCOSE (AUTOMATED) 2022-11-29 [facility] 22:35:00 Medical Branch POCT GLUCOSE (AUTOMATED) 2022-11-29 Tish Bennett [facility] 18:15:00 [facility] POCT GLUCOSE (AUTOMATED) 2022-11-29 [facility] 13:42:00 [facility] OCCULT (GUAIAC) BLOOD 2022-11-29 [facility] 09:58:00 [facility] FECES CULTURE 2022-11-29 [facility] xa 09:57:00 [facility] CLOSTRIDIUM DIFFICILE TOXIN 2022-11-29 [facility] 09:57:00 [facility] MAGNESIUM 2022-11-29 [facility] 09:56:00 [facility] BASIC METABOLIC PANEL (NA, K, 2022-11-29 [facility] CL, CO2, GLUCOSE, BUN, 09:56:00 [facility] ranch CREATININE, CA) LIPID PANEL (99809)(TOTAL 2022-11-29 [facility] CHOLESTEROL, TRIGLYCERIDES, 09:56:00 [facility] HDL) CBC WITH DIFF 2022-11-29 [facility] 09:56:00 [facility] EXTERNAL PROVIDER RECORDS 2022-11-29 Doctor Unassigned, [facility] 06:01:00 [place] [facility] POCT GLUCOSE (AUTOMATED) 2022-11-29 Tish Bennett [facility] 02:04:00 [facility] BLOOD CULTURE SCREEN 2022-11-28 [facility] 21:54:00 [facility] BLOOD CULTURE SCREEN 2022-11-28 [facility] 21:53:00 [facility] THYROID STIMULATING HORMONE 2022-11-28 [facility] 21:28:00 [facility] XR CHEST 1 VW 2022-11-28 Singer [facility] xa 18:17:13 [facility] LACTIC ACID WHOLE BLOOD 2022-11-28 Eddie iWn [facility] 18:12:00 [facility] TROPONIN I 2022-11-28 [facility] xa 18:04:00 [facility] COMP. METABOLIC PANEL (34615) 2022-11-28 Eddie Win [facility] 18:04:00 Medical Branch CBC WITH DIFF 2022-11-28 Eddie Win [facility] [place] 18:04:00 Medical Branch HB ECG ROUTINE & RHYTHM STRIP 2022-11-28 Eddie Win [facility] 17:55:44 Medical Branch CONSENT/REFUSAL FOR DIAGNOSIS 2022-11-28 Doctor Unassigned, [facility] AND TREATMENT 17:37:46 [place] [facility] [place] [facility] - OTHER 2022-11-08 Doctor Unassigned, [facility] 06:01:00 [place] [facility] [place] POCT GLUCOSE (AUTOMATED) 2022-11-03 Chris Tillman [facility] 13:50:00 Medical Branch BASIC METABOLIC PANEL (NA, K, 2022-11-03 Jerrica Carranza [facility] CL, CO2, GLUCOSE, BUN, 10:35:00 Medical B ran CREATININE, CA) CBC WITH DIFF 2022-11-03 Dillon [facility] 10:35:00 Medical Branch POCT GLUCOSE (AUTOMATED) 2022-11-02 Chris Tillman [facility] 22:42:00 Medical Branch POCT GLUCOSE (AUTOMATED) 2022-11-02 Chris Tillman [facility] 17:50:00 Medical Branch POCT GLUCOSE (AUTOMATED) 2022-11-02 Chris Tillman [facility] 14:14:00 Medical Branch BASIC METABOLIC PANEL (NA, K, 2022-11-02 Jerrica Carranza [facility] CL, CO2, GLUCOSE, BUN, 09:47:00 Medical B ran CREATININE, CA) CBC WITH DIFF 2022-11-02 Dillon [facility] 09:47:00 Medical Branch POCT GLUCOSE (AUTOMATED) 2022-11-01 Chris Tillman [facility] 22:47:00 Medical Branch POCT GLUCOSE (AUTOMATED) 2022-11-01 Chris Tillman [facility] 17:54:00 Medical Branch POCT GLUCOSE (AUTOMATED) 2022-11-01 Chris Tillman [facility] 13:58:00 Medical Branch MAGNESIUM 2022-11-01 [facility] 10:50:00 Medical Branch BASIC METABOLIC PANEL (NA, K, 2022-11-01 Jerrica Carranza [facility] CL, CO2, GLUCOSE, BUN, 10:50:00 Medical B ran CREATININE, CA) CBC WITH DIFF 2022-11-01 Jerrica Carranza [facility] 10:50:00 [facility] VITAMIN B12, LEVEL 2022-11-01 [facility] 03:08:00 [facility] FOLATE 2022-11-01 [facility] [place] 03:08:00 [facility] MAGNESIUM 2022-11-01 [facility] [place] 02:34:00 [facility] FERRITIN SERUM 2022-11-01 [facility] [place] 02:34:00 [facility] IRON 2022-11-01 [facility] xa 02:34:00 [facility] TOTAL IRON BINDING CAPACITY 2022-11-01 [facility] 02:34:00 [facility] BASIC METABOLIC PANEL (NA, K, 2022-11-01 [facility] CL, CO2, GLUCOSE, BUN, 02:34:00 Medical ran CREATININE, CA) CT ABDOMEN PELVIS WO CONTRAST 2022-10-31 Chris Tillman [facility] 18:20:19 [facility] URINALYSIS 2022-10-31 Chris Tillman [facility] 16:47:00 [facility] URINE CULTURE 2022-10-31 Chris Tillman [facility] 16:47:00 [facility] MAGNESIUM 2022-10-31 [facility] xa 16:24:00 [facility] COMP. METABOLIC PANEL (98417) 2022-10-31 Chris Tillman [facility] 16:24:00 [facility] LIPID PANEL ([id number])(TOTAL 2022-10-31 Jerrica Carranza [facility] CHOLESTEROL, TRIGLYCERIDES, 16:24:00 [facility] HDL) CBC WITH DIFF 2022-10-31 Chris Tillman [facility] 16:24:00 [facility] GLYCOSYLATED HEMOGLOBIN (A1C) 2022-10-31 Jerrica Carranza [facility] 16:24:00 [facility] EKG-12 LEAD 2022-10-31 Chris Tillman [facility] xas 16:03:18 [facility] CONSENT/REFUSAL FOR DIAGNOSIS 2022-10-31 Doctor Unassigned, [facility] AND TREATMENT 15:55:25 [place] [facility] PHACOEMULSIFICATION OF 2022-07-17 Vince Lopez [facility] CATARACT WITH INTRAOCULAR 15:16:00 [facility] LENS IMPLANT POCT GLUCOSE (AUTOMATED) 2022-07-17 Vince Lopez [facility] 13:59:00 [facility] POCT GLUCOSE (AUTOMATED) 2022-07-17 Vince Lopez [facility] 13:59:00 [facility] ASSIGNMENT OF BENEFITS 2022-07-15 Doctor Unassigned, [facility] 17:44:10 [place] [facility] URINALYSIS 2022-04-17 [facility] [place] 20:40:00 [facility] POCT URINALYSIS AUTO 2022-04-17 [facility] 00:00:00 [facility] Encounters Start End Encounter Admission Attending Care Care Encounter Source Date/Time Date/Time Type Type Clinicians Facility Department ID 2021-09-24 Outpatient Chris LPOEZ [facility] OPH [id number] Univers 17:46:08 VINCE [facility] 2021-09-21 Emergency [facility] [id number] Univers 14:52:11 [facility] 2022-12-17 2022-12-17 Outpatient Chris SERRATO [facility] [id number] Univers 09:45:00 09:45:00 ISAIAS [facility] 2022-12-11 2022-12-[address] [facility] 1.2.840.114 [id number] Univers 00:00:00 00:00[facility]00 [facility] 350.1.13.10 it y of [place] 4.2.7.2.686 Denis as RAF?BLEA [phone] Fl sandip STODDARD [address] [place] [address] MEDICAL OFFICE BUILDING 2022-12-04 2022-12-04 Transition ALESSANDRA Phillip 1.2.840.114 [id number] Univers 00:00:00 00:00:00 of Care Alexandra MOYER 350.1.13.10 it [place] [phone] [facility] 403 Branch 2022-11-28 2022-12-03 Inpatient X [facility] [id number] Univers 11:44:00 17:54:[address] [facility] 2022-11-28 2022-12-03 [facility] Eddie Win [facility] 1.2.840.1 [id number] Univers 11:44:00 17:54:00 Encounter Tish Bennett [place] 350.1.13.10 ity of [facility] 4.2.7.2.[place] [id number] [facility] [address] [place] 2022-12-02 2022-12-02 Outpatient R SIXTO [facility] [id number] Univers 13:00:00 13:00:00 [facility] 2022-12-02 2022-12-02 Telephone [facility] [id number] Univers 00:00:00 00:00:00 [facility] 350.1.13.10 it y of [place] 4.2.7.2.686 Denis as RAF?BLEA [id number] [address] OFFICE [facility] 2022-11-29 2022-11-29 Telephone [facility] [id number] Univers 00:00:00 00:00:00 [facility] 350.1.13.10 it y of [place] 4.2.7.2.686 Denis as RAF?BLEA [phone] [facility] [address] [facility] OFFICE [facility] 2022-11-28 2022-11-28 Office [facility] 1.2.840.114 [id number] Univers 11:00:00 11:20:00 Visit Jaskaran BELTRAN [id number] ity of [facility] 4.2.7[place]2.[place] [id number] [facility] 0[address] [facility] 2022-11-28 2022-11-28 Outpatient R FARSHAD [facility] [id number] Univers 11:00:00 11:00:00 JASKARAN oconnor o f [facility] 2022-11-28 2022-11-28 Telephone [facility] [id number] Univers 00:00:00 00:00:00 [place] [facility] 350.1.13.10 it y of [facility] 4.2.7.2.686 Denis as RAF?BLEA [id number] [address] MEDICAL OFFICE [facility] 2022-11-25 2022-11-25 Outpatient R SIXTO [facility] [id number] Univers 14:00:00 14:00:[address] [facility] 2022-11-11 2022-11-11 Telephone [facility] [id number] Univers 00:00:00 00:00:00 [facility] 350.1.13.10 it y of [place] 4.2.7.2.686 Denis as RAF?BLEA [id number] [address] OFFICE [facility] 2022-11-11 2022-11-11 Refill [facility] 1.2.840.114 [id number] Univers 00:00:00 00:00:00 [place] [facility] 350.1.13.10 it y of [place] 4.2.7.2.686 Denis as RAF?BLEA [phone] [address] OFFICE [facility] 2022-11-08 2022-11-08 Orders Doctor AWAIS 1.2.840.114 [id number] Univers 00:00:00 00:00:00 Only Unassigned, ELVIA 350.1.13.10 ity of [place] [facility] 4.2.7.2.686 Denis as [id number] [facility] 00[address] [place] 2022-11-05 2022-11-05 Transition ALESSANDRA Corado 1.2.840.114 [id number] Univers 00:00:00 00:00:00 of Care Man MOYER 350.1.13.10 [place] [id number] [facility] 403 Branch 2022-11-05 2022-11-05 Telephone [facility] [id number] Univers 00:00:00 00:00:00 Isaias RUBY 350.1.13.10 i ty of [facility] 4.2.7.2.686 [place] [facility] [phone] Fl sandip CUADRA [address] [facility] 2022-10-31 2022-11-03 Inpatient X DANA [facility] RYAN [id number] Univers 09:59:00 13:08:[address] [facility] 2022-10-31 2022-11-03 Hospital Chris Tillman [facility] 1.2.840.11 [id number] Univers 09:59:00 13:08:00 Encounter Tish Bennett 350.1.13.10 ity of [facility] 4.2.7.2.[place] [id number] [address] 2022-10-30 2022-10-30 Client Liaison Lab, Ang - Db [facility] 1.2.840.1 [id number] Univers 09:30:00 09:45:00 Visit Isaias Serrato [facility] [id number] ity of [facility] 4.2.7.2.686 Denis as RAF?BLEA [phone] Fl sandip SALCEDO [address] [place] MEDICAL OFFICE [facility] 2022-10-30 2022-10-30 Outpatient R SIXTO [facility] [id number] Univers 09:30:00 09:30:00 ISAIAS [facility] 2022-10-30 2022-10-[address] [facility] 1.2.840.114 [id number] Univers 09:00:00 09:30:00 Visit [facility] 350.1.13.10 it y of [facility] 4.2.7.2.686 Denis as RAF?BLEA [phone] Fl sandip STODDARD [address] [place] [address] MEDICAL OFFICE [facility] 2022-10-30 2022-10-[address] [facility] 1.2.840.114 [id number] Univers 00:00:00 00:00:00 [facility] 350.1.13.10 it y of [facility] 4.2.7.2.686 Denis as RAF?BLEA [id number] [address] OFFICE [facility] 2022-10-28 2022-10-28 Outpatient R SERRATO, [facility] [id number] Univers 09:00:00 09:00:[address] [facility] 2022-10-14 2022-10-14 Telephone [facility] [id number] Univers 00:00:00 00:00:00 Isaias HEALTH 350.1.13.10 it y of [place] 4.2.7.2.686 Denis as RAF?BLEA [id number] [address] OFFICE [facility] 2022-10-11 2022-10-11 Refill [facility] 1.2.840.114 [id number] Univers 00:00:00 00:00:00 [facility] 350.1.13.10 it y of [place] 4.2.7.2.686 Denis as RAF?BLEA [id number] [address] 2022-09-24 2022-09-24 Outpatient R RITO [facility] [id number] Univers 14:30:00 14:30:[address] [facility] 2022-09-23 2022-09-23 [facility] [id number] Univers 12:15:00 12:15:[address] [facility] 2022-09-23 2022-09-23 Telephone [facility] [id number] Univers 00:00:00 00:00:00 [facility] 350.1.13.10 it y of [place] 4.2.7.2.686 Denis as RAF?BLEA [id number] [address] 2022-08-19 2022-08-19 Refalejo [facility] 1.2.840.114 [id number] Univers 00:00:00 00:00:00 Isaias HEALTH 350.1.13.10 it y of [place] 4.2.7.2.686 Denis as RAF?BLEA [id number] [address] 2022-08-17 2022-08-17 Refill Arredondo, [facility] 1.2.840.114 [id number] Univers 00:00:00 00:00:00 Queenie BELTRAN 350.1.13.10 ity of [facility] 4.2.7.2.[place] [id number] Fl dical [facility] [address] [facility] 2022-07-29 2022-07-29 [facility] 1.2.840.114 [id number] Univers 00:00:00 00:00:00 [facility] 350.1.13.10 it y of [facility] 4.2.7.2.686 Denis as RAF?BLEA [id number] [facility] 044 [facility] 2022-07-29 2022-07-29 [facility] Arredondo, [facility] 1.2.840.114 [id number] Univers 00:00:00 00:00:00 Queenie RUBY 350.1.13.10 ity of [facility] 4.2.7.2.[place] [id number] [facility] 204 [facility] 2022-07-17 2022-07-17 Outpatient R [facility] OPH [id number] Univers 08:35:00 11:43:00 VINCE ity of [facility] 2022-07-17 2022-07-17 [facility] 1.2.684.339 [id number] Univers 08:35:00 11:43:00 Encounter Vince BELTRAN 350.1.13.10 ity of [facility] 4.2.7.2.[place] SURGICAL [id number] [facility] [address] [place] 2022-07-17 2022-07-17 Anesthesia Abdiel Martínez [facility] 1.2.840.11 [id number] Univers 10:21:00 10:58:00 Event Michael Lema 35 0.1.13.10 ity of [facility] 4.2.7.2.[place] SURGICAL [id number] [facility] [address] [place] 2022-07-17 2022-07-17 Surgery [facility] 1.2.840.114 [id number] Univers 09:32:00 10:06:00 Vince Pope RUBY 350.1.13.10 ity of [place] 4.2.7.2.686 [place] SURGICAL [id number] [facility] [address] [place] 2022-07-15 2022-07-15 Client Liaison Elizabeth, Britney Lab Main [facility] 1.2.8 [id number] Univers 13:45:00 14:00:00 Visit Vince Lopez 350.1.13.1 0 ity of [facility] 4.2.7.2.686 [place] [id number] [address] 2022-07-15 2022-07-15 Outpatient R CHRISTINA [facility] [facility] [id number] Univers 13:45:00 13:45:[address] [facility] 2022-07-15 2022-07-15 Orders Doctor AWAIS 1.2.840.114 [id number] Univers 00:00:00 00:00:00 Only Unassigned, EVLIA 350.1.13.10 ity of [place] [facility] 4.2.7.2.686 Denis as [id number] [address] 2022-07-15 2022-07-15 Refalejo [facility] 1.2.840.114 [id number] Univers 00:00:00 00:00:00 Isaias HEALTH 350.1.13.10 it y of [place] 4.2.7.2.686 Denis as RAF?BLEA [phone] [facility] [address] MEDICAL OFFICE [facility] 2022-07-01 2022-07-01 Refalejo [facility] 1.2.840.114 [id number] Univers 00:00:00 00:00:00 Isaias HEALTH 350.1.13.10 it y of [place] 4.2.7.2.686 Denis as RAF?BLEA [phone] [facility] [address] [facility] OFFICE [facility] 2022-07-01 2022-07-01 Refalejo [facility] 1.2.840.114 [id number] Univers 00:00:00 00:00:00 Queenie BELTRAN 350.1.13.10 ity [facility] 4.2.7.2.[place] [phone] Fl dical NAL [address] [place] [address] 2022-06-12 2022-06-12 [facility] [id number] Univers 11:30:00 11:30:00 [facility] o [facility] 2022-06-11 2022-06-11 [facility] 1.2.840.114 [id number] Univers 00:00:00 00:00:00 [facility] 350.1.13.10 it y [facility] 4.2.7.2.686 Denis as RAF?BLEA [phone] [address] 2022-05-29 2022-05-29 Outpatient R [facility] [id number] Univers 13:30:00 13:30:00 [facility] o [facility] 2022-05-13 2022-05-13 [facility] 1.2.840.114 [id number] Univers 00:00:00 00:00:00 [facility] 350.1.13.10 it y of [place] 4.2.7.2.686 Denis as RAF?BLEA [phone] [address] 2022-04-23 2022-04-23 [facility] 1.2.840.114 [id number] Univers 00:00:00 00:00:00 [facility] 350.1.13.10 it y of [place] 4.2.7.2.686 Denis as RAF?BLEA [phone] [facility] MATIAS[address] 2022-04-23 2022-04-23 [facility] 1.2.840.114 [id number] Univers 00:00:00 00:00:00 [facility] 350.1.13.10 ity of [place].7.2.[place] [id number] Fl dic[address] 2022-04-23 2022-04-23 Refalejo [facility] 1.2.840.114 [id number] Univers 00:00:00 00:00:00 [facility] 350.1.13.10 it y of [facility] 4.2.7.2.686 Denis as RAF?BLEA [phone] [address] OFFICE [facility] 2022-04-17 2022-04-17 Outpatient R [facility]ING [facility] [id number] Univers 14:00:00 14:45:45 QUEENIE roseannevanessa o f [facility] 2022-04-17 2022-04-17 Office [facility] 1.2.840.114 [id number] Univers 14:00:00 14:45:45 Visit Queenie BELTRAN 350.1.13.10 ity of [facility] 4.2.7.2.[place] [id number] [facility] [address] [facility] 2022-04-17 2022-04-17 [facility] [id number] Univers 14:00:00 14:00:00 QUEENIE berumen jocelyn [facility] 2022-04-03 2022-04-03 Imm/Inj Vaccine, [facility] 1.2.840.114 [id number] Univers 16:00:00 16:10:00 Visit Isaias Serrato 350.1.13.10 ity of [facility] 4.2.7.2.[place] [id number] [address] 2022-04-03 2022-04-03 Outpatient Chris [facility]O [facility] [id number] Univers 16:00:00 16:00:[address] [facility] 2022-04-03 2022-04-03 Office [facility] 1.2.840.114 [id number] Univers 13:15:00 13:30:00 Visit Isaias CRISTA 350.1.13.10 it y of [facility] 4.2.7.2.686 Denis as RAF?BLEA [phone] [address] OFFICE [facility] 2022-04-03 2022-04-03 Outpatient Chris S[facility]ATO [facility] [id number] Univers 13:15:00 13:15:00 [facility] 2022-04-03 2022-04-03 Outpatient Chris SERRATO [facility] [id number] Univers 13:15:00 13:15:[address] [facility] 2022-04-02 2022-04-02 Laney [facility] 1.2.840.114 [id number] Univers 00:00:00 00:00:00 [place] [facility] 350.1.13.10 it y of [place] 4.2.7.2.686 Denis as RFA?BLEA [phone] [address] 2022-03-26 2022-03-26 Laney [facility] 1.2.840.114 [id number] Univers 00:00:00 00:00:00 [place] HEALTH 350.1.13.10 it y of [place] 4.2.7.2.686 Denis as RAF?BLEA [id number] [address] 2022-03-25 2022-03-25 Laney [facility] 1.2.840.114 [id number] Univers 00:00:00 00:00:00 [place] [facility]ALTH 350.1.13.10 it y of [place] 4.2.7.2.686 Denis as RAF?BLEA [id number] [address] 2022-03-23 2022-03-23 Laney [facility] 1.2.840.114 [id number] Univers 00:00:00 00:00:00 [facility] 350.1.13.10 it y of [place] 4.2.7.2.686 Denis as RAF?BLEA [phone] [address] 2022-03-13 2022-03-13 Outpatient Chris SERRATO [facility] [id number] Univers 13:45:00 13:45:[address] [facility] 2022-02-20 2022-02-20 Laney [facility] 1.2.840.114 [id number] Univers 00:00:00 00:00:00 Isaias HEALTH 350.1.13.10 it y of [place] 4.2.7.2.686 Denis as RAF?BLEA [phone] Fl sandip [address]CED[address] MEDICAL OFFICE [facility] 2022-02-19 2022-02-19 [facility] 1.2.840.114 [id number] Univers 00:00:00 00:00:00 Isaias HEALTH 350.1.13.10 it y of [place] 4.2.7.2.686 Denis as RAF?BLEA [phone] Fl sandip SALCEDO[address] OFFICE [facility] 2021-12-27 2021-12-27 [facility] 1.2.840.114 [id number] Univers 00:00:00 00:00:00 Isaias HEALTH 350.1.13.10 it y of [place] 4.2.7.2.686 Denis as RAF?BLEA [phone] [facility] SALCEDO[address] OFFICE [facility] 2021-12-26 2021-12-26 [facility] 1.2.190.268 [id number] Univers 00:00:00 00:00:00 Isaias HEALTH 350.1.13.10 it y of [place] 4.2.7.2.686 Denis as RAF?BLEA [phone] [address] OFFICE [facility] 2021-12-18 2021-12-18 [facility] 1.2.840.114 [id number] Univers 00:00:00 00:00:00 Isaias HEALTH 350.1.13.10 it y of [place] 4.2.7.2.686 Denis as RAF?BLEA [phone] [place] MATIAS[address] OFFICE [facility] 2021-11-20 2021-11-20 Telephone [facility] 1.2.222.982 [id number] Univers 00:00:00 00:00:00 Isaias HEALTH 350.1.13.10 it y of [place] 4.2.7.2.686 Denis as RAF?BLEA [id number] [address] OFFICE [facility] 2021-10-22 2021-10-22 Telephone [facility] 1.2.410.487 [id number] Univers 00:00:00 00:00:00 [facility] 350.1.13.10 it y of [place] 4.2.7.2.686 Denis as RAF?BLEA [id number] [address] OFFICE [facility] 2021-10-01 2021-10-01 Refill [facility] 1.2.840.114 [id number] Univers 00:00:00 00:00:00 [facility] 350.1.13.10 it y of [place] 4.2.7.2.686 Denis as RAF?BLEA [phone] [address] 2021-09-27 2021-09-27 [facility] 1.2.840.114 [id number] Univers 00:00:00 00:00:00 [facility] 350.1.13.10 it y of [place] 4.2.7.2.686 Denis as RAF?BLEA [id number] [address] 2021-09-26 2021-09-26 Outpatient Chris CANTUSERRATO [facility] [id number] Univers 14:00:00 14:05:04 [facility] 2021-09-26 2021-09-26 Outpatient R SERRATO [facility] [id number] Univers 14:00:00 14:00:00 [facility] 2021-09-26 2021-09-26 Office [facility] 1.2.840.114 [id number] Univers 13:26:07 13:41:07 Visit [facility] 350.1.13.10 it y of [place] 4.2.7.2.686 Denis as RAF?BLEA [id number] [address] 2021-09-19 2021-09-19 Outpatient [facility] [id number] Univers 13:15:00 13:15:00 [facility] 2021-09-19 2021-09-19 Refalejo [facility] 1.2.840.114 [id number] Univers 00:00:00 00:00:00 Isaias Health 350.1.13.10 it y of [place] 4.2.7.2.686 Denis as Raf?Blea [phone] Fl sandip stoddard [address] [place] [address] Medical Office Building 2021-09-07 2021-09-07 Orders Doctor AWAIS 1.2.840.114 [id number] Univers 00:00:00 00:00:00 Only Unassigned, ELVIA 350.1.13.10 ity of [place] [facility] 4.2.7.2.686 Denis as [phone] [address] 2021-08-20 2021-08-20 [place] [facility] 1.2.609.362 [id number] Univers 00:00:00 00:00:00 [facility] 350.1.13.10 it y of [place] 4.2.7.2.686 Denis as Raf?Blea [phone] Fl sandip stoddard [address] [place] [address] Medical Office Building 2021-08-12 2021-08-12 Refill [facility] 1.2.840.114 [id number] Univers 00:00:00 00:00:00 Isaias Health 350.1.13.10 it y of [place] 4.2.7.2.686 Denis as Professio [phone] [facility] [address] Office Building One 2021-07-25 2021-07-25 [facility] Christina [facility] 1.2.141.771 [id number] Univers 06:36:00 09:28:00 Encounter Vince Beltran 350.1.13.10 it[place] of [place].2.[place] [phone] [facility] [address] 2021-07-25 2021-07-[address] [facility] 1.2.840.114 [id number] Univers 07:30:00 08:11:00 Vince Beltran 350.1.13.10 [place] of [place].2.[place] [id number] [facility] [address] 2021-07-24 2021-07-24 Laboratory Only, Adc Test [facility] 1.2.840. 114 [id number] Univers 10:16:59 10:31:59 Only Vince Lopez 350.1.13.1 0 [place] of [place]2.7.2.686 [place] [phone] [address] 2021-07-24 2021-07-24 Outpatient R CHRISTINA [facility] [id number] Univers 10:15:00 10:15:[address] [facility] 2021-07-23 2021-07-23 Telephone [facility] 1.2.718.326 [id number] Univers 00:00:00 00:00:00 [employer] 350.1.13.10 it y of [place] 4.2.7.2.686 Denis as Raf?Blea [phone] [address] Medical Office [facility] 2021-07-20 2021-07-20 Client Liaison Elizabeth, Adc Lab Main [facility] 1.2.8 40.114 [id number] Univers 12:50:28 13:05:28 Visit Vince Lopez 350.1.13.1 0 [place] of [place].2.[place] [facility] [phone] [address] 2021-07-20 2021-07-20 Outpatient R CHRISTINA [facility] [id number] Univers 13:00:00 13:00:[address] [facility] 2021-07-20 2021-07-20 Orders Doctor ERNANDEZ 1.2.840.114 [id number] Univers 00:00:00 00:00:00 Only Unassigned, ELVIA 350.1.13.10 ity of [place] [facility] 4.2.7.2.686 Denis as [id number] [address] 2021-07-18 2021-07-18 Office [facility] 1.2.840.114 [id number] Univers 13:32:13 13:47:13 Visit [facility] 350.1.13.10 it y of [place] 4.2.7.2.686 Denis as Raf?Blea [phone] [address] Medical Office Building 2021-07-18 2021-07-18 Outpatient Chris SERRATO [facility] [id number] Univers 13:30:00 13:30:00 [facility] 2021-06-06 2021-06-06 Orders Doctor AWAIS 1.2.840.114 [id number] Univers 00:00:00 00:00:00 Only Unassigned, ELIVA 350.1.13.10 ity of [place] [facility] 4.2.7.2.686 Denis as [phone] [address] 2021-03-21 2021-03-21 Outpatient Chris [facility]ATO [facility] [id number] Univers 13:00:00 13:00:00 [facility] 2021-01-05 2021-01-05 Outpatient Chris CONNER [facility] [id number] Univers 12:30:00 12:30:00 CHRISTINE [facility] 2020-12-20 2020-12-20 Outpatient Chris SERRATO [facility] [id number] Univers 13:00:00 13:00:00 [facility] 2020-12-15 2020-12-15 Outpatient Chris CONNER [facility] [id number] Univers 12:30:00 12:30:00 [facility] 2020-12-07 2020-12-07 Outpatient Chris CONNER [facility] [id number] Univers 14:10:00 14:10:00 CHRISTINE [facility] 2020-11-08 2020-11-08 Outpatient Chris SERRATO [facility] [id number] Univers 14:15:00 14:15:00 [facility] 2020-10-26 2020-10-26 Outpatient R [facility] [id number] Univers 13:00:00 13:00:00 [facility] 2020-08-29 2020-08-29 Outpatient Chris SERRATO [facility] [id number] Univers 10:00:00 10:00:00 [facility] 2020-04-24 2020-04-24 Outpatient Chris PADILLA [facility] [id number] Univers 15:00:00 15:00:[address] [facility] 2020-03-13 2020-03-13 Outpatient Chris SERRATO [facility] [id number] Univers 10:00:00 10:00:[address] [facility] 2020-03-01 2020-03-01 Outpatient Chris SERRATO [facility] [id number] Univers 13:15:00 13:15:00 ISAIAS Surgery [facility] 2019-12-01 2019-12-01 Emergency X FABY, [facility] ERT [id number] Univers 17:26:13 21:43:00 NICOLETTE [facility] Results Test Description Test Time Test Comments Results Result Comments Source POCT GLUCOSE (AUTOMATED) 2022-12-03 18:35:25 Test Item Value Reference Range Interpretation Comme nts POCT GLU (test code = 7770524737) 185 mg/dL 70-110 H Lab Interpretation (test code = 76793-4) [facility]2022-12-03 14:37:09 Test Item Value Reference Range Interpretation Comments POCT GLU (test code = 7942851181) 119 mg/dL 70-110 H Lab Interpretation (test code = Abnormal 73935-0) [facility]23-[facility]-10 12:52:57 Test Item Value Reference Range Interpretation Comments MAGNESIUM (test code = 1408296148) 1.8 mg/dL 1.7-2.4 Lab Interpretation (test code = Normal 76127-9) [facility] (NA, K, CL, CO2, GLUCOSE, BUN, CREATININE, CA)2022-12-03 12:52:37 Test Item Value Reference Range Interpretation Comments NA (test code = 134 mmol/L 135-145 L 1366044030) K (test code = 3.4 mmol/L 3.5-5.0 L 2453657079) CL (test code = 108 mmol/L 98-108 8300611182) CO2 TOTAL (test code = 25 mmol/L 23-31 3655075606) AGAP (test code = 2-16 L 2347821010) BUN (test code = 36 mg/dL 7-23 H 8587993823) GLUCOSE (test code = 92 mg/dL 70-110 5931007584) CREATININE (test code = 1.38 mg/dL 0.50-1.04 H 0940957690) CALCIUM (test code = 7.4 mg/dL 8.6-10.6 L 9421069452) eGFR (test code = mL/min/1.73m2 6974538210) BONY (test code = BONY) Association of [...] tests). Lab Interpretation Abnormal (test code = 47804-6) [facility] WITH [id number] 12:31:57 Test Item Value Reference Range Interpretation Comments WBC (test code = See_Comment [Automated 9412-2) message] The sy stem which generated this result transmitted reference range : 4.30 - 11.10 10*3/?L. The reference range was not used to interpret this result as normal/abnormal . RBC (test code = See_Comment L [Automated 572-8) message] The sy stem which generated this result transmitted reference range : 3.93 - 5.25 10*6/?L. The reference range was not used to interpret this result as normal/abnormal . HGB (test code = 8.8 g/dL 11.6-15.0 L 718-7) HCT (test code = 26.5 % 35.7-45.2 L 4544-3) MCV (test code = 91.1 fL 80.6-95.5 787-2) MCH (test code = 30.2 pg 25.9-32.8 785-6) MCHC (test code = 33.2 g/dL 31.6-35.1 786-4) RDW-SD (test code = 49.9 fL 39.0-49.9 48525-8) RDW-CV (test code = 15.0 % 12.0-15.5 788-0) PLT (test code = See_Comment [Automated 777-3) message] The sy stem which generated this result transmitted reference range : 166 - 358 10*3/ ?L. The reference r randy was not used to interpret this result as normal/abnormal . MPV (test code = 10.2 fL 9.5-12.9 27177-3) NRBC/100 WBC (test See_Comment [Automat ed code = 6800404443) message] The system which generated this result transmitted reference range : 0.0 - 10.0 /100 WBCs. The refer ence range was not u sed to interpret th is result as normal/abnormal . NRBC x10^3 (test code See_Comment [Auto mated = 4968113764) message] The s ystem which generated this result transmitted reference range : 10*3/?L. The reference range was not used to interpret this result as normal/abnormal . GRAN MAT (NEUT) % 49.5 % (test code = 770-8) IMM GRAN % (test code 0.30 % = 9369566363) LYMPH % (test code = 34.4 % 736-9) MONO % (test code = 13.0 % 5905-5) EOS % (test code = 1.8 % 713-8) BASO % (test code = 1.0 % 706-2) GRAN MAT x10^3(ANC) 3.55 10*3/uL 1.88-7.09 (test code = 5573102513) IMM GRAN x10^3 (test 0.00-0.06 code = 7392979170) LYMPH x10^3 (test code 2.46 10*3/uL 1.32-3.29 = 731-0) MONO x10^3 (test code 0.93 10*3/uL 0.33-0.92 H = 742-7) EOS x10^3 (test code = 0.13 10*3/uL 0.03-0.39 711-2) BASO x10^3 (test code 0.07 10*3/uL 0.01-0.07 = 704-7) Lab Interpretation Abnormal (test code = 21259-1) [facility] GLUCOSE (AUTOMATED)2022-12-03 02:40:24 Test Item Value Reference Range Interpretation Comments POCT GLU (test code = 8372332579) 153 mg/dL 70-110 H Lab Interpretation (test code = Abnormal 86095-5) [facility] GLUCOSE (AUTOMATED)2022-12-02 23:13:25 Test Item Value Reference Range Interpretation Comments POCT GLU (test code = 5139869776) 81 mg/dL 70-110 Lab Interpretation (test code = Normal 65358-0) [facility] GLUCOSE (AUTOMATED)2022-12-02 17:51:15 Test Item Value Reference Range Interpretation Comments POCT GLU (test code = 1187018920) 138 mg/dL 70-110 H Lab Interpretation (test code = Abnormal 36827-3) [facility] GLUCOSE (AUTOMATED)2022-12-02 14:08:07 Test Item Value Reference Range Interpretation Comments POCT GLU (test code = 5073589471) 74 mg/dL 70-110 Lab Interpretation (test code = Normal 27113-8) [facility] METABOLIC PANEL (NA, K, CL, CO2, GLUCOSE, BUN, CREATININE, CA)2022-12-02 12:11:00 Test Item Value Reference Range Interpretation Comments NA (test code = 135 mmol/L 135-145 6051377160) K (test code = 3.5 mmol/L 3.5-5.0 0198558588) CL (test code = 109 mmol/L 98-108 H 8408307161) CO2 TOTAL (test code = 24 mmol/L 23-31 0119912757) AGAP (test code = 2-16 5030481697) BUN (test code = 39 mg/dL 7-23 H 6203980310) GLUCOSE (test code = 75 mg/dL 70-110 5811473406) CREATININE (test code = 1.50 mg/dL 0.50-1.04 H 1275293691) CALCIUM (test code = 7.3 mg/dL 8.6-10.6 L 8244430359) eGFR (test code = mL/min/1.73m2 9005075562) BONY (test code = BONY) Association of [...] tests). Lab Interpretation Abnormal (test code = 71365-5) [facility] GLUCOSE (AUTOMATED)2022-12-02 02:49:05 Test Item Value Reference Range Interpretation Comments POCT GLU (test code = 7312112684) 124 mg/dL 70-110 H Lab Interpretation (test code = Abnormal 91464-2) [facility] GLUCOSE (AUTOMATED)2022-12-01 22:31:31 Test Item Value Reference Range Interpretation Comments POCT GLU (test code = 9026108439) 131 mg/dL 70-110 H Lab Interpretation (test code = Abnormal 40547-2) [facility] GLUCOSE (AUTOMATED)2022-12-01 18:09:02 Test Item Value Reference Range Interpretation Comments POCT GLU (test code = 9503195809) 179 mg/dL 70-110 H Lab Interpretation (test code = Abnormal 07107-0) [facility] GLUCOSE (AUTOMATED)2022-12-01 13:54:43 Test Item Value Reference Range Interpretation Comments POCT GLU (test code = 9920532318) 81 mg/dL 70-110 Lab Interpretation (test code = Normal 22650-6) [facility] WITH [id number] 11:45:31 Test Item Value Reference Range Interpretation Comments WBC (test code = See_Comment [Automated 6690-2) message] The sy stem which generated this result transmitted reference range : 4.30 - 11.10 10*3/?L. The reference range was not used to interpret this result as normal/abnormal . RBC (test code = See_Comment L [Automated 789-8) message] The sy stem which generated this result transmitted reference range : 3.93 - 5.25 10*6/?L. The reference range was not used to interpret this result as normal/abnormal . HGB (test code = 10.2 g/dL 11.6-15.0 L 718-7) HCT (test code = 29.4 % 35.7-45.2 L 4544-3) MCV (test code = 89.4 fL 80.6-95.5 787-2) MCH (test code = 31.0 pg 25.9-32.8 785-6) MCHC (test code = 34.7 g/dL 31.6-35.1 786-4) RDW-SD (test code = 49.2 fL 39.0-49.9 65253-5) RDW-CV (test code = 15.1 % 12.0-15.5 788-0) PLT (test code = See_Comment [Automated 777-3) message] The sy stem which generated this result transmitted reference range : 166 - 358 10*3/ ?L. The reference r randy was not used to interpret this result as normal/abnormal . MPV (test code = 10.8 fL 9.5-12.9 67114-7) NRBC/100 WBC (test See_Comment [Automat ed code = 5572254504) message] The system which generated this result transmitted reference range : 0.0 - 10.0 /100 WBCs. The refer ence range was not u sed to interpret th is result as normal/abnormal . NRBC x10^3 (test code See_Comment [Auto mated = 2041569729) message] The s ystem which generated this result transmitted reference range : 10*3/?L. The reference range was not used to interpret this result as normal/abnormal . GRAN MAT (NEUT) % 61.4 % (test code = 770-8) IMM GRAN % (test code 0.50 % = 1676462578) LYMPH % (test code = 24.2 % 736-9) MONO % (test code = 12.0 % 5905-5) EOS % (test code = 1.2 % 713-8) BASO % (test code = 0.7 % 706-2) GRAN MAT x10^3(ANC) 6.19 10*3/uL 1.88-7.09 (test code = 4587231065) IMM GRAN x10^3 (test 0.05 10*3/uL 0.00-0.06 code = 6720410782) LYMPH x10^3 (test code 2.44 10*3/uL 1.32-3.29 = 731-0) MONO x10^3 (test code 1.21 10*3/uL 0.33-0.92 H = 742-7) EOS x10^3 (test code = 0.12 10*3/uL 0.03-0.39 711-2) BASO x10^3 (test code 0.07 10*3/uL 0.01-0.07 = 704-7) Lab Interpretation Abnormal (test code = 89020-4) [facility] METABOLIC PANEL (NA, K, CL, CO2, GLUCOSE, BUN, CREATININE, CA)2022-12-01 11:37:12 Test Item Value Reference Range Interpretation Comments NA (test code = 135 mmol/L 135-145 [id number]) K (test code = 3.5 mmol/L 3.5-5.0 8033228733) CL (test code = 110 mmol/L 98-108 H 5700488281) CO2 TOTAL (test code = 22 mmol/L 23-31 L 1363425456) AGAP (test code = 2-16 3951595115) BUN (test code = 46 mg/dL 7-23 H 6224387118) GLUCOSE (test code = 88 mg/dL 70-110 3606072130) CREATININE (test code = 1.58 mg/dL 0.50-1.04 H 0463033469) CALCIUM (test code = 7.4 mg/dL 8.6-10.6 L 7569056434) eGFR (test code = mL/min/1.73m2 9930665504) BONY (test code = BONY) Association of [...] tests). Lab Interpretation Abnormal (test code = 55650-4) [facility] GLUCOSE (AUTOMATED)2022-12-01 03:28:31 Test Item Value Reference Range Interpretation Comments POCT GLU (test code = 7358160125) 227 mg/dL 70-110 H Lab Interpretation (test code = Abnormal 86521-5) [facility] GLUCOSE (AUTOMATED)2022-11-30 23:55:28 Test Item Value Reference Range Interpretation Comments POCT GLU (test code = 2772051534) 53 mg/dL 70-110 L Lab Interpretation (test code = Abnormal 59255-9) [facility] GLUCOSE (AUTOMATED)2022-11-30 23:55:28 Test Item Value Reference Range Interpretation Comments POCT GLU (test code = 2794191910) 65 mg/dL 70-110 L Lab Interpretation (test code = Abnormal 28456-8) [facility] GLUCOSE (AUTOMATED)2022-11-30 23:55:28 Test Item Value Reference Range Interpretation Comments POCT GLU (test code = 5548121799) 88 mg/dL 70-110 Lab Interpretation (test code = Normal 27784-8) [facility] GLUCOSE (AUTOMATED)2022-11-30 23:13:35 Test Item Value Reference Range Interpretation Comments POCT GLU (test code = 4862014667) 45 mg/dL 70-110 LL Lab Interpretation (test code = Abnormal 98363-9) [id number]46:03 Test Item Value Reference Range Interpretation Comments ADDISON AM (test code = 16.7 ug/dL 4.5-23.0 6885980492) BONY (test code = BONY) Biotin has been reported to cause a positive bias, interpret results relative to patient's use of biotin. Lab Interpretation (test Normal code = 52017-7) [facility] GLUCOSE (AUTOMATED)2022-11-30 18:00:43 Test Item Value Reference Range Interpretation Comments POCT GLU (test code = 4061667421) 241 mg/dL 70-110 H Lab Interpretation (test code = Abnormal 08332-1) [facility] GLUCOSE (AUTOMATED)2022-11-30 14:12:28 Test Item Value Reference Range Interpretation Comments POCT GLU (test code = 6172861763) 92 mg/dL 70-110 Lab Interpretation (test code = Normal 53087-0) [facility] WITH [id number] 11:56:05 Test Item Value Reference Range Interpretation Comments WBC (test code = See_Comment H [Automated 6690-2) message] The sy stem which generated this result transmitted reference range : 4.30 - 11.10 10*3/?L. The reference range was not used to interpret this result as normal/abnormal . RBC (test code = See_Comment L [Automated 789-8) message] The sy stem which generated this result transmitted reference range : 3.93 - 5.25 10*6/?L. The reference range was not used to interpret this result as normal/abnormal . HGB (test code = 10.1 g/dL 11.6-15.0 L 718-7) HCT (test code = 29.4 % 35.7-45.2 L 4544-3) MCV (test code = 89.6 fL 80.6-95.5 787-2) MCH (test code = 30.8 pg 25.9-32.8 785-6) MCHC (test code = 34.4 g/dL 31.6-35.1 786-4) RDW-SD (test code = 47.9 fL 39.0-49.9 10577-6) RDW-CV (test code = 14.8 % 12.0-15.5 788-0) PLT (test code = See_Comment [Automated 777-3) message] The sy stem which generated this result transmitted reference range : 166 - 358 10*3/ ?L. The reference r randy was not used to interpret this result as normal/abnormal . MPV (test code = 10.6 fL 9.5-12.9 67589-4) NRBC/100 WBC (test See_Comment [Automat ed code = 8236119260) message] The system which generated this result transmitted reference range : 0.0 - 10.0 /100 WBCs. The refer ence range was not u sed to interpret th is result as normal/abnormal . NRBC x10^3 (test code See_Comment [Auto mated = 8375848404) message] The s ystem which generated this result transmitted reference range : 10*3/?L. The reference range was not used to interpret this result as normal/abnormal . GRAN MAT (NEUT) % 71.7 % (test code = 770-8) IMM GRAN % (test code 0.60 % = 4284850303) LYMPH % (test code = 17.1 % 736-9) MONO % (test code = 9.1 % 5905-5) EOS % (test code = 1.0 % 713-8) BASO % (test code = 0.5 % 706-2) GRAN MAT x10^3(ANC) 8.78 10*3/uL 1.88-7.09 H (test code = 5620695586) IMM GRAN x10^3 (test 0.07 10*3/uL 0.00-0.06 H code = 7452999543) LYMPH x10^3 (test code 2.09 10*3/uL 1.32-3.29 = 731-0) MONO x10^3 (test code 1.11 10*3/uL 0.33-0.92 H = 742-7) EOS x10^3 (test code = 0.12 10*3/uL 0.03-0.39 711-2) BASO x10^3 (test code 0.06 10*3/uL 0.01-0.07 = 704-7) Lab Interpretation Abnormal (test code = 57534-6) [facility] METABOLIC PANEL (NA, K, CL, CO2, GLUCOSE, BUN, CREATININE, CA)2022-11-30 11:11:21 Test Item Value Reference Range Interpretation Comments NA (test code = 136 mmol/L 135-145 3966314772) K (test code = 3.2 mmol/L 3.5-5.0 L 0945235773) CL (test code = 110 mmol/L 98-108 H 7939592134) CO2 TOTAL (test code = 22 mmol/L 23-31 L 0354264350) AGAP (test code = 2-16 5686916365) BUN (test code = 49 mg/dL 7-23 H 1642621342) GLUCOSE (test code = 92 mg/dL 70-110 7981450414) CREATININE (test code = 1.71 mg/dL 0.50-1.04 H 8236853421) CALCIUM (test code = 7.2 mg/dL 8.6-10.6 L 4276264387) eGFR (test code = mL/min/1.73m2 4164614496) BONY (test code = BONY) Association of [...] tests). Lab Interpretation Abnormal (test code = 04827-0) [facility] GLUCOSE (AUTOMATED)2022-11-30 03:59:50 Test Item Value Reference Range Interpretation Comments POCT GLU (test code = 5950717254) 174 mg/dL 70-110 H Lab Interpretation (test code = Abnormal 46458-9) [facility] GLUCOSE (AUTOMATED)2022-11-30 02:46:55 Test Item Value Reference Range Interpretation Comments POCT GLU (test code = 0192869481) 174 mg/dL 70-110 H Lab Interpretation (test code = Abnormal 20151-3) [facility] GLUCOSE (AUTOMATED)2022-11-29 18:40:59 Test Item Value Reference Range Interpretation Comments POCT GLU (test code = 2961245307) 138 mg/dL 70-110 H Lab Interpretation (test code = Abnormal 12315-1) [facility] GLUCOSE (AUTOMATED)2022-11-29 15:14:10 Test Item Value Reference Range Interpretation Comments POCT GLU (test code = 6262380571) 88 mg/dL 70-110 Lab Interpretation (test code = Normal 87509-5) [facility] GLUCOSE (AUTOMATED)2022-11-29 02:27:02 Test Item Value Reference Range Interpretation Comments POCT GLU (test code = 3168204007) 174 mg/dL 70-110 H Lab Interpretation (test code = Abnormal 38618-8) [facility] [id number] 23:36:44 Test Item Value Reference Range Interpretation Comments TSH (test code = See_Comment Biotin has been 6598276036) reported to cau se a negative bias, interpret resul ts relative to pat ient's use of biotin. [Automated mess age] The system [employer] generated this result transmitted ref erence range: 0.45 - 4 .70 mIU/L. The refe rence range was not u sed to interpret this result as normal/abnor mal. Lab Interpretation (test Normal code = 18538-6) [facility] [id number] 18:34:27 Test Item Value Reference Interpretation Comments Range TROPONIN I (test 0.076 ng/mL See_Comment H [Automated code = 0463786809) message] The system which generated this result transmitted reference range : <=0.034. The reference range was not used to interpret this result as normal/abnormal . BONY (test code = Reference (Normal) BONY) Range (defined by the 99th percentile reference limit): <= 0.034 ng/mL Note: Cardiac troponin begins to rise 3-4 hours after the onset of ischemia. Repeat in 4-6 hours if the sample was drawn within 3-4 hours of the onset of the symptom and found normal. Diagnosis of myocardial injury is made with acute changes in cTn concentrations with at least one serial sample above the 99th percentile upper reference limit (URL), taken together with the patient's clinical presentation. Biotin has been reported to cause a negative bias, interpret results relative to patient's use of biotin. Lab Interpretation Abnormal (test code = 84987-2) [facility]. METABOLIC PANEL (26647)2022-11-28 18:25:16 Test Item Value Reference Range Interpretation Comments NA (test code = 133 mmol/L 135-145 L 0820919582) K (test code = 2.8 mmol/L 3.5-5.0 LL 2920576909) CL (test code = 99 mmol/L 98-108 2799145835) CO2 TOTAL (test code = 25 mmol/L 23-31 5801156882) AGAP (test code = 2-16 3724968807) BUN (test code = 58 mg/dL 7-23 H 5481826025) GLUCOSE (test code = 103 mg/dL 70-110 6261221592) CREATININE (test code = 2.06 mg/dL 0.50-1.04 H 2933883790) TOTAL BILI (test code = 0.9 mg/dL 0.1-1.6 9087207163) CALCIUM (test code = 7.8 mg/dL 8.6-10.6 L 2929461093) T PROTEIN (test code = 5.8 g/dL 6.3-8.2 L 3026212847) ALBUMIN (test code = 2.8 g/dL 3.5-5.0 L 6038543899) ALK PHOS (test code = 58 U/L 34-122 3868065694) ALTv (test code = 16 U/L 5-35 1742-6) AST(SGOT) (test code = 28 U/L 13-40 9636104429) eGFR (test code = mL/min/1.73m2 6373739804) BONY (test code = BONY) Association of [...] tests). Lab Interpretation Abnormal (test code = 88402-1) [facility] WITH [id number] 18:11:22 Test Item Value Reference Range Interpretation Comments WBC (test code = See_Comment H [Automated 6690-2) message] The system which generated this result transmit seth reference range : 4.30 - 11.10 10*3/?L. The reference range was not used to interpret this result as normal/abnormal . RBC (test code = See_Comment L [Automated 789-8) message] The system which generated this result transmit seth reference range : 3.93 - 5.25 10*6/?L. The reference range was not used to interpret this result as normal/abnormal . HGB (test code = 10.9 g/dL 11.6-15.0 L 718-7) HCT (test code = 32.1 % 35.7-45.2 L 4544-3) MCV (test code = 89.9 fL 80.6-95.5 787-2) MCH (test code = 30.5 pg 25.9-32.8 785-6) MCHC (test code = 34.0 g/dL 31.6-35.1 786-4) RDW-SD (test code = 48.7 fL 39.0-49.9 63495-9) RDW-CV (test code = 14.7 % 12.0-15.5 788-0) PLT (test code = See_Comment [Automated 777-3) message] The system which generated this result transmit seth reference range : 166 - 358 10*3/ ?L. The reference range was not u sed to interpret th is result as normal/abnormal . MPV (test code = 10.2 fL 9.5-12.9 21733-3) NRBC/100 WBC (test See_Comment [Automat ed code = 2900626273) message] The system which generated this result transmit seth reference range : 0.0 - 10.0 /100 WBCs. The reference range was not used to interpret this result as normal/abnormal . NRBC x10^3 (test code See_Comment [Auto mated = 7459964052) message] The system which generated this result transmit seth reference range : 10*3/?L. The reference range was not used to interpret this result as normal/abnormal . GRAN MAT (NEUT) % 76.4 % (test code = 770-8) IMM GRAN % (test code 0.60 % = 1793463890) LYMPH % (test code = 14.1 % 736-9) MONO % (test code = 7.6 % 5905-5) EOS % (test code = 0.7 % 713-8) BASO % (test code = 0.6 % 706-2) GRAN MAT x10^3(ANC) 10.51 10*3/uL 1.88-7.09 H (test code = 7500042791) IMM GRAN x10^3 (test 0.08 10*3/uL 0.00-0.06 H code = 4199652573) LYMPH x10^3 (test code 1.94 10*3/uL 1.32-3.29 = 731-0) MONO x10^3 (test code 1.05 10*3/uL 0.33-0.92 H = 742-7) EOS x10^3 (test code = 0.10 10*3/uL 0.03-0.39 711-2) BASO x10^3 (test code 0.08 10*3/uL 0.01-0.07 H = 704-7) Lab Interpretation Abnormal (test code = 10761-1) [facility] GLUCOSE (AUTOMATED)2022-11-03 15:19:59 Test Item Value Reference Range Interpretation Comments POCT GLU (test code = 2663427207) 79 mg/dL 70-110 Lab Interpretation (test code = Normal 97866-8) [facility] GLUCOSE (AUTOMATED)2022-11-02 22:46:18 Test Item Value Reference Range Interpretation Comments POCT GLU (test code = 1614961946) 122 mg/dL 70-110 H Lab Interpretation (test code = Abnormal 61686-8) [facility] GLUCOSE (AUTOMATED)2022-11-02 18:01:09 Test Item Value Reference Range Interpretation Comments POCT GLU (test code = 9582577884) 125 mg/dL 70-110 H Lab Interpretation (test code = Abnormal 05605-9) [facility] GLUCOSE (AUTOMATED)2022-11-02 14:36:18 Test Item Value Reference Range Interpretation Comments POCT GLU (test code = 0757934912) 79 mg/dL 70-110 Lab Interpretation (test code = Normal 48627-0) [facility] METABOLIC PANEL (NA, K, CL, CO2, GLUCOSE, BUN, CREATININE, CA)2022-11-02 10:44:48 Test Item Value Reference Range Interpretation Comments NA (test code = 138 mmol/L 135-145 4465887698) K (test code = 3.8 mmol/L 3.5-5.0 3737181022) CL (test code = 110 mmol/L 98-108 H 5745433556) CO2 TOTAL (test code = 25 mmol/L 23-31 4330328204) AGAP (test code = 2-16 2720386326) BUN (test code = 17 mg/dL 7-23 2463070777) GLUCOSE (test code = 113 mg/dL 70-110 H 4107827070) CREATININE (test code = 1.12 mg/dL 0.50-1.04 H 6605947548) CALCIUM (test code = 7.9 mg/dL 8.6-10.6 L 7836499047) eGFR (test code = mL/min/1.73m2 6083330210) BONY (test code = BONY) Association of [...] tests). Lab Interpretation Abnormal (test code = 85359-1) [facility] WITH [id number] 10:20:28 Test Item Value Reference Range Interpretation Comments WBC (test code = See_Comment [Automated 9721-2) message] The sy stem which generated this result transmitted reference range : 4.30 - 11.10 10*3/?L. The reference range was not used to interpret this result as normal/abnormal . RBC (test code = See_Comment L [Automated 987-8) message] The sy stem which generated this [...] (test code = 53.6 fL 39.0-49.9 H 92945-9) RDW-CV (test code = 15.9 % 12.0-15.5 H 788-0) PLT (test code = See_Comment [Automated 777-3) message] The sy stem which generated this result transmitted reference range : 166 - 358 10*3/ ?L. The reference r randy was not used to interpret this result as normal/abnormal . MPV (test code = 11.4 fL 9.5-12.9 61867-5) NRBC/100 WBC (test See_Comment [Automat ed code = 8898984111) message] The system which generated this result transmitted reference range : 0.0 - 10.0 /100 WBCs. The refer ence range was not u sed to interpret th is result as normal/abnormal . NRBC x10^3 (test code See_Comment [Auto mated = 0670926005) message] The s ystem which generated this result transmitted reference range : 10*3/?L. The reference range was not used to interpret this result as normal/abnormal . GRAN MAT (NEUT) % 55.4 % (test code = 770-8) IMM GRAN % (test code 1.00 % = 3842372594) LYMPH % (test code = 29.2 % 736-9) MONO % (test code = 9.6 % 5905-5) EOS % (test code = 4.0 % 713-8) BASO % (test code = 0.8 % 706-2) GRAN MAT x10^3(ANC) 3.37 10*3/uL 1.88-7.09 (test code = 9128784976) IMM GRAN x10^3 (test 0.06 10*3/uL 0.00-0.06 code = 4964686210) LYMPH x10^3 (test code 1.77 10*3/uL 1.32-3.29 = 731-0) MONO x10^3 (test code 0.58 10*3/uL 0.33-0.92 = 742-7) EOS x10^3 (test code = 0.24 10*3/uL 0.03-0.39 711-2) BASO x10^3 (test code 0.05 10*3/uL 0.01-0.07 = 704-7) Lab Interpretation Abnormal (test code = 99679-2) [facility] GLUCOSE (AUTOMATED)2022-11-01 22:51:07 Test Item Value Reference Range Interpretation Comments POCT GLU (test code = 0230707246) 107 mg/dL 70-110 Lab Interpretation (test code = Normal 25802-7) [facility] GLUCOSE (AUTOMATED)2022-11-01 18:04:33 Test Item Value Reference Range Interpretation Comments POCT GLU (test code = 7383432877) 148 mg/dL 70-110 H Lab Interpretation (test code = Abnormal 21009-8) [facility] GLUCOSE (AUTOMATED)2022-11-01 14:03:41 Test Item Value Reference Range Interpretation Comments POCT GLU (test code = 6602110549) 75 mg/dL 70-110 Lab Interpretation (test code = Normal 79495-8) [facility] 03:13:45 Test Item Value Reference Range Interpretation Comments MAGNESIUM (test code = 9294645697) 0.7 mg/dL 1.7-2.4 L Lab Interpretation (test code = Abnormal 54477-7) [facility]cosylated Hemoglobin (A1C)2022-11-01 00:53:02 Test Item Value Reference Range Interpretation Comments HGB A1C (test code = 4.2 % 4.0-5.7 4548-4) BONY (test code = BONY) Reference RangesNormal: <5.7%Prediabetes: 5.7 - 6.4%Diabetes: > 6.5% Lab Interpretation (test Normal code = 07357-1) [facility] (Total Cholesterol, Triglycerides, HDL) - [id number] 00:36:06 Test Item Value Reference Range Interpretation Comments CHOL (test code = 108 mg/dL 120-200 L 7661548878) HDL (test code = 25 mg/dL See_Comment L [Automated message] 7104295746) The system [employer] generated this result transmit seth reference range : >=50. The refer ence range was not u sed to interpret th is result as normal/abnormal . HDLC RATIO (test code = See_Comment [Au tomated message] 8403348396) The system [employer] generated this result transmit seth reference range : <=4.5. The refe rence range was not u sed to interpret th is result as normal/abnormal . TRIG (test code = 168 mg/dL 30-170 4102500958) LDL CHOL (test code = 49 mg/dL See_Comment [Auto mated message] 22255-8) The system [employer] generated this result transmit seth reference range : <=160. The refe rence range was not u sed to interpret th is result as normal/abnormal . VLDL (test code = 34 mg/dL 5-60 0681211771) Lab Interpretation (test Abnormal code = 08772-1) [facility] (56078)2022-10-31 16:48:46 Test Item Value Reference Range Interpretation Comments NA (test code = 138 mmol/L 135-145 3023734528) K (test code = 3.0 mmol/L 3.5-5.0 L 2319626434) CL (test code = 106 mmol/L 98-108 0264595843) CO2 TOTAL (test code = 25 mmol/L 23-31 5606882276) AGAP (test code = 2-16 5713595276) BUN (test code = 16 mg/dL 7-23 5316156889) GLUCOSE (test code = 79 mg/dL 70-110 1470947418) CREATININE (test code = 1.24 mg/dL 0.50-1.04 H 0822332818) TOTAL BILI (test code = 0.9 mg/dL 0.1-1.4 5809494587) CALCIUM (test code = 8.5 mg/dL 8.6-10.6 L 0033387951) T PROTEIN (test code = 5.6 g/dL 6.3-8.2 L 9772754218) ALBUMIN (test code = 2.8 g/dL 3.5-5.0 L 8416626191) ALK PHOS (test code = 51 U/L 34-122 8812281067) ALTv (test code = 17 U/L 5-35 1742-6) AST(SGOT) (test code = 35 U/L 13-40 8831187634) eGFR (test code = mL/min/1.73m2 4364368402) BONY (test code = BONY) Association of [...] tests). Lab Interpretation Abnormal (test code = 77723-0) [facility] WITH [id number] 16:33:02 Test Item Value Reference Range Interpretation Comments WBC (test code = See_Comment H [Automated 6690-2) message] The system which generated this result transmit seth reference range : 4.30 - 11.10 10*3/?L. The reference range was not used to interpret this result as normal/abnormal . RBC (test code = See_Comment L [Automated 789-8) message] The system which generated this result [...] (test code = 55.0 fL 39.0-49.9 H 55887-5) RDW-CV (test code = 15.8 % 12.0-15.5 H 788-0) PLT (test code = See_Comment [Automated 777-3) message] The system which generated this result transmit seth reference range : 166 - 358 10*3/ ?L. The reference range was not u sed to interpret th is result as normal/abnormal . MPV (test code = 11.5 fL 9.5-12.9 21382-2) NRBC/100 WBC (test See_Comment [Automat ed code = 3981932893) message] The system which generated this result transmit seth reference range : 0.0 - 10.0 /100 WBCs. The reference range was not used to interpret this result as normal/abnormal . NRBC x10^3 (test code See_Comment [Auto mated = 7472948525) message] The system which generated this result transmit seth reference range : 10*3/?L. The reference range was not used to interpret this result as normal/abnormal . GRAN MAT (NEUT) % 83.0 % (test code = 770-8) IMM GRAN % (test code 0.80 % = 7175889483) LYMPH % (test code = 8.0 % 736-9) MONO % (test code = 6.5 % 5905-5) EOS % (test code = 1.2 % 713-8) BASO % (test code = 0.5 % 706-2) GRAN MAT x10^3(ANC) 11.06 10*3/uL 1.88-7.09 H (test code = 6774806091) IMM GRAN x10^3 (test 0.11 10*3/uL 0.00-0.06 H code = 5481079373) LYMPH x10^3 (test code 1.07 10*3/uL 1.32-3.29 L = 731-0) MONO x10^3 (test code 0.86 10*3/uL 0.33-0.92 = 742-7) EOS x10^3 (test code = 0.16 10*3/uL 0.03-0.39 711-2) BASO x10^3 (test code 0.07 10*3/uL 0.01-0.07 = 704-7) Lab Interpretation Abnormal (test code = 40392-1) [facility] GLUCOSE (AUTOMATED)2022-07-17 14:01:47 Test Item Value Reference Range Interpretation Comments POCT GLU (test code = 5694692877) 92 mg/dL 70-110 Lab Interpretation (test code = Normal 79427-7) [facility] GLUCOSE (AUTOMATED)2022-07-17 14:01:47 Test Item Value Reference Range Interpretation Comments POCT GLU (test code = 0974338039) 92 mg/dL 70-110 Lab Interpretation (test code = Normal 29035-6) [facility] URINALYSIS, [id number] 19:19:00 Test Item Value Reference Range Interpretation Comments POCT U SP GRAV (test code = 1.015 mg/dl 1.005-1.025 3255) POCT PH U (test code = 3254) 5.5 mg/dl 5-8 POCT U LEUK EST (test code = Small Negative - Negative 3262) POCT U NIT (test code = Negative Negative - Negative 3261) POCT U PROT (test code = Trace Negative - Negative 3258) POCT U GLU (test code = Negative Negative - Negative 6) POCT U KETONE (test code = Negative Negative - Negative 8) POCT U UROBILI (test code = 1.0 mg/dl 0.2-1 0) POCT U BILI (test code = Negative Negative - Negative 3261) POCT U BLD (test code = Trace-intact Negative - Negative 3257) POCT U COLOR (test code = Yellow 3266) POCT U APPEAR (test code = Clear 3267) Lab Interpretation (test Abnormal code = 19830-4) [facility]"
[2022-12-16 12:41] LABS: Absolute Lymphocytes (CBC) 1.6 K/uL (0.7-4.9); Hematocrit 29.3 % (36.0-45.0); Lymphocytes % 8.8 % (15.3-44.8); MCV 89.5 fL (80-100); MPV 7.4 fL (7.6-11.3); RBC Red Blood Cell Count 3.27 M/uL (3.86-4.86)
[2022-12-16 12:46] LABS: Protime INR 1.19
[2022-12-16 13:05] LABS: Albumin 2.3 g/dL (3.4-5.0); Bilirubin Direct 0.3 mg/dL (0-0.2); Bilirubin Total 0.7 mg/dL (0.2-1.0); Protein, Total 5.9 g/dL (6.4-8.2)
[2022-12-16 13:08] LABS: Magnesium 1.3 mg/dL (1.6-2.4); Potassium 2.7 mmol/L (3.5-5.1); Troponin High Sensitivity 64.5 pg/mL (<58.9)
[2022-12-16] MEDS ORDERED: POTASSIUM CL SA 10 MEQ TAB PO ONE (13:29)
--- NOTE | 2022-12-16 13:44 | RAD REPORT ---
EXAM DESCRIPTION: RAD - Chest Single View - 12/16/2022 1:31 pm CLINICAL HISTORY: generalized weakness COMPARISON: Portable 11/12/2022, portable 10/09/2022 TECHNIQUE: AP portable chest image was obtained 12/16/2022 1:31 pm . FINDINGS: Lung volumes are low. Patient has a diffusely prominent interstitial pattern. This is much less pronounced than the November 12 study but is more similar in appearance to the October 09 exam ination. Shallow inspiration accentuates the interstitial pattern. The peripheral mass or consolidati on is not seen. Heart size is normal range. Central vasculature within range of normal. No measurable pleural effusi on and no pneumothorax. No acute bony abnormality seen. No acute aortic findings suspected. IMPRESSION: Chronic interstitial lung pattern accentuated by shallow inspiration. No focal lung parenchymal process seen.
--- NOTE | 2022-12-16 14:29 | RAD REPORT ---
EXAM DESCRIPTION: CT - Abdomen Pelvis W Contrast - 12/16/2022 2:02 pm CLINICAL HISTORY: Generalized abdominal pain, diarrhea. Hx C diff COMPARISON: Abdomen Pelvis W Contrast dated 10/09/2022 TECHNIQUE: Biphasic, helical CT imaging of the abdomen and pelvis was performed following 100 ml non -ionic IV contrast. Oral contrast: No. All CT scans are performed using dose optimization technique as appropriate and may include automated exposure control or mA/KV adjustment according to patient size. FINDINGS: No acute finding in the lung base parenchyma. Patient is trace amount of bilateral pleural fluid. No pericardial effusion. No new mass in the hepatic parenchyma. Several small hepatic cysts are again identified. Intrahepatic and extrahepatic biliary tree dilatation are present. Cholecystectomy clips are present. Degree of b iliary dilatation is not significantly different from September study and may be baseline reservoir af fect. No new or suspicious splenic finding. Cyst along the left lateral margin has not changed. No ne w pancreatic finding. Symmetric renal function is seen with no hydronephrosis or suspicious renal mass. No pyelonephritis o r acute parenchymal process. Small sub centimeter cortical cysts are present. No abnormal perinephric stranding. Partially filled urinary bladder shows no suspicious finding. Uterus is absent. Ovaries a trophic or absent. Pelvic floor laxity is present. Small hiatal hernia is present. Gastric recio are accentuated by limited intraluminal content. No farhan ss mass or asymmetric wall thickening seen. Small bowel loops are not dilated. There are several dist al small bowel loops showing slight thickening and enhancement of the recio. No acute appendicitis fi ndings. Cecum and ascending colon show no suspicious findings. Circumferential wall thickening and ed carmita are present in the colon from hepatic flexure to the rectum. No colon mass identified. Small amount of free intraperitoneal fluid is present. There is fluid retention in the subcutaneous f atty tissues. Left breast shows extensive edema change to the soft tissues. This is much more pronoun hunter than seen in the right breast. Patient has a fluid retention pattern in the subcutaneous tissues. The left breast may just be more pronounced. An aggressive process such as inflammatory carcinoma wo uld not be expected to develop ingested 2 month interval. This can be correlated with physical exam f indings. No free air or pneumatosis. No abscess or emergent finding. No mass or bulky lymphadenopathy. No suspicious bony findings. IMPRESSION: No bowel obstruction, free air, abscess or other surgically emergent finding. Circumferential wall thickening throughout the colon from hepatic flexure to rectum. A few small ya l loops of slightly thickened and edematous recio. Colitis/enteritis is certainly possible if there a re supporting clinical or laboratory findings. Bowel changes are possibly related to metabolic or electrolyte disordered given the overall fluid ret ention pattern seen on this examination. Soft tissue edema is most pronounced in the left breast. This is probably accentuated form of the ove rall fluid retention pattern rather than a more aggressive left breast process such as inflammatory c arcinoma. An aggressive process would be unlikely to develop to this degree over a 2 month interval s khalida the September comparison. Correlation can be made with physical exam findings.
--- NOTE | 2022-12-16 16:26 | ER ---
Nurse's Notes [facility] Name: Lucille Padron Age: 82 yrs Sex: Female : 1940 Arrival Date: 12/16/2022 Time: 11:42 Bed 23 [facility] MD: Diagnosis: Hypokalemia;Elevated troponin;Renal insufficiency;Diarrhea, unspecified Presentation: 12/16 11:42 Chief complaint: EMS states: they were called to the patients house for weakness for a ap3 few days. Coronavirus screen: At this time, the client does not indicate any symptoms associated with coronavirus-19. Ebola Screen: No symptoms or risks identified at this time. Initial Sepsis Screen: Does the patient meet any 2 criteria? No. Patient's initial sepsis screen is negative. Does the patient have a suspected source of infection? No. Patient's initial sepsis screen is negative. Risk Assessment: Do you want to hurt yourself or someone else? Patient reports no desire to harm self or others. Onset of symptoms was December 16, 2022. Care prior to arrival: IV initiated. 20 GA, in the right hand. 11:42 Method Of Arrival: EMS: [facility] ap3 11:42 Acuity: JONATHAN 3 ap3 Triage Assessment: 11:49 General: Appears in no apparent distress. Behavior is calm, cooperative. Pain: Denies ap3 pain. Neuro: Level of Consciousness is awake, alert, obeys commands, Reports weakness. Cardiovascular: Patient's skin is warm and dry. Respiratory: Airway is patent Respiratory effort is even, unlabored, Respiratory pattern is regular, symmetrical. : patient is incontinent. Historical: - Allergies: 11:44 No Known Allergies; ap3 - Home Meds: 11:44 Eliquis Oral [Active]; amlodipine oral [Active]; carvedilol oral [Active]; Doxycycline ap3 Oral [Active]; fenofibrate oral [Active]; Ferrous Sulfate Oral [Active]; pantoprazole oral [Active]; paroxetine oral [Active]; pravastatin oral [Active]; - PMHx: 11:44 CAD; Congestive heart failure; NIDDM; Hypertensive disorder; ap3 - Immunization history:: Client reports receiving the 2nd dose of the Covid vaccine. - Social history:: Smoking status: Patient denies any tobacco usage or history of. Screenin:30 [facility] ED Fall Risk Assessment (Adult) History of falling in the last 3 months, ko1 including since admission No falls in past 3 months (0 pts) Confusion or Disorientation Yes (5 pts) Intoxicated or Sedated No (0 pts) Impaired Gait Yes (1 pt) Mobility Assist Device Used Yes (1 pt) Altered Elimination Yes (1 pt) Score/Fall Risk Level 3 or more points = High Risk Oriented to surroundings, Maintained a safe environment, Educated pt \T\ family on fall prevention, incl call for assistance when getting out of bed, Assessed \T\ reinforced patient's understanding of fall precautions, Provided non-skid footwear, Hourly rounding (assess needs \T\ fall precautionary measures) done, Used ambulatory aids as needed (educated on \T\ assisted with), Used gait belt as appropriate Implemented a Fall Risk Plan of Care, Apply high fall risk patient identification: yellow non skid footwear/ fall signage, Remained w/in arm's length of patient and in sight while toileting, Offered frequent toileting (1:1 observation), Remained with patient while ambulating, Utilized family, sitter, or virtual cylinder press operator as indicated. Abuse screen: Denies threats or abuse. Denies injuries from another. Nutritional screening: No deficits noted. Tuberculosis screening: No symptoms or risk factors identified. Assessment: 11:45 General: Appears in no apparent distress. comfortable, unkempt, Behavior is calm, ko1 cooperative, appropriate for age. Pain: Denies pain. Neuro: Reports weakness. Cardiovascular: No deficits noted. Respiratory: No deficits noted. GI: Reports diarrhea. : Reports incontinence. EENT: No deficits noted. Derm: No deficits noted. Musculoskeletal: No deficits noted. Vital Signs: 11:42 BP 160 / 78; Pulse 92; Resp 17; Temp 98.0; Pulse Ox 96% ; Pain 0/10; ap3 12:00 BP 161 / 72; Pulse 92; Resp 18; Pulse Ox 99% ; ko1 12:30 BP 152 / 60; Pulse 90; Resp 16; Pulse Ox 96% ; ko1 13:00 BP 156 / 69; Pulse 92; Resp 18; Pulse Ox 97% ; ko1 13:30 BP 154 / 60; Pulse 93; Resp 16; Pulse Ox 99% ; ko1 14:30 BP 152 / 64; Pulse 96; Resp 18; Pulse Ox 98% ; ko1 15:30 BP 156 / 90; Pulse 95; Resp 18; Pulse Ox 98% ; ko1 ED Course: 11:42 Patient arrived in ED. ap3 11:44 Triage completed. ap3 11:46 Beau Tripathi DO is Attending Physician. ms3 11:50 Arm band placed on left wrist. ap3 11:50 Patient has correct armband on for positive identification. Bed in low position. Call ap3 light in reach. Side rails up X2. telemetry monitor on. Pulse ox on. NIBP on. Door closed. Noise minimized. Warm blanket given. 11:56 Maintain EMS IV. Dressing intact. Good blood return noted. Site clean \T\ dry. Gauge \T\ ap 3 site: 20g right hand. 12:17 Alem Bowers, RN is Primary Nurse. ko1 12:20 Inserted saline lock: 20 gauge in right antecubital area, using aseptic technique. ko1 Blood collected. 12:28 Basic Metabolic Panel Sent. ko1 12:28 CBC with Diff Sent. ko1 12:28 LFT's Sent. ko1 12:29 Magnesium Sent. ko1 12:29 PT-INR Sent. ko1 12:29 Troponin HS Sent. ko1 13:32 XRAY Chest (1 view) In Process Unspecified. EDMS 14:04 Abdomen In Process Unspecified. EDMS 16:25 Jeff Lynch MD is Hospitalizing Provider. ms3 17:03 SARS RAPID Sent. ko1 18:24 C.difficile Sent. ko1 19:14 Primary Nurse role handed off by Alem Bowers, JOSÉ mw2 19:14 role handed off by Roxann Lee RN mw2 12/17 14:15 No provider procedures requiring assistance completed. Patient admitted, IV remains in ko1 place. Administered Medications: 12/16 13:33 Drug: Potassium Chloride 40 mEq Route: PO; ap3 17:59 Follow up: Response: No adverse reaction ap3 Medication: 11:51 VIS not applicable for this client. ap3 Outcome: 16:26 Decision to Hospitalize by Provider. ms3 12/17 14:15 Admitted to Tele accompanied by tech, via stretcher, room 403, with chart. ko1 Condition: stable Instructed on the need for admit. 14:16 Patient left the ED. ko1 Signatures: Dispatcher [employer] Roxann Alexandre, JOSÉ RN ap3 Taylor Acevedo mw2 Beau Tripathi DO DO ms3 Alem Bowers RN RN ko1 Corrections: (The following items were deleted from the chart) 12/16 11:47 11:44 Home Meds: metformin 500 mg Oral tab 1 tab 2 times per day; ap3 ap3
--- NOTE | 2022-12-16 16:26 | EDPHYS ---
Physician Documentation [facility] Name: Lucille Padron Age: 82 yrs Sex: Female : 1940 Arrival Date: 12/16/2022 Time: 11:42 Bed 23 Private MD: ED Physician Beau Tripathi HPI: 12/16 13:29 This 82 yrs old Female presents to ER via EMS with complaints of Weakness. ms3 13:29 82-year-old female with past medical history of coronary artery disease, congestive ms3 heart failure, diabetes, hypertension presents via [facility] for confusion and weakness that began this morning. Patient endorses nausea, vomiting, diarrhea. Patient was recently placed on doxycycline and is getting over see differential.. Historical: - Allergies: 11:44 No Known Allergies; ap3 - Home Meds: 11:44 Eliquis Oral [Active]; amlodipine oral [Active]; carvedilol oral [Active]; Doxycycline ap3 Oral [Active]; fenofibrate oral [Active]; Ferrous Sulfate Oral [Active]; pantoprazole oral [Active]; paroxetine oral [Active]; pravastatin oral [Active]; - PMHx: 11:44 CAD; Congestive heart failure; NIDDM; Hypertensive disorder; ap3 - Immunization history:: Client reports receiving the 2nd dose of the Covid vaccine. - Social history:: Smoking status: Patient denies any tobacco usage or history of. ROS: 13:29 Constitutional: Negative for fever, and chills. Neck: Negative for injury, pain, and ms3 swelling, Cardiovascular: Negative for chest pain, and palpitations. Respiratory: Negative for shortness of breath, cough, wheezing, and pleuritic chest pain. 13:29 Skin: Negative for injury, rash, and discoloration. 13:29 Abdomen/GI: Positive for nausea, vomiting, and diarrhea. Exam: 13:29 Constitutional: This is a well developed, well nourished patient who is awake, alert, ms3 and in no acute distress. Head/Face: Normocephalic, atraumatic. Neck: Trachea midline, no cervical lymphadenopathy. Supple, full range of motion without nuchal rigidity, or vertebral point tenderness. No Meningismus. Chest/axilla: Normal chest wall appearance and motion. Nontender with no deformity. Cardiovascular: Regular rate and rhythm with a normal S1 and S2. No gallops, murmurs, or rubs. Normal PMI, no JVD. No pulse deficits. Respiratory: Lungs have equal breath sounds bilaterally, clear to auscultation and percussion. No rales, rhonchi or wheezes noted. No increased work of breathing, no retractions or nasal flaring. Abdomen/GI: Soft, non-tender, with normal bowel sounds. No distension or tympany. No guarding or rebound. No evidence of tenderness throughout. 13:29 ECG was reviewed by the Attending Physician. Vital Signs: 11:42 BP 160 / 78; Pulse 92; Resp 17; Temp 98.0; Pulse Ox 96% ; Pain 0/10; ap3 12:00 BP 161 / 72; Pulse 92; Resp 18; Pulse Ox 99% ; ko1 12:30 BP 152 / 60; Pulse 90; Resp 16; Pulse Ox 96% ; ko1 13:00 BP 156 / 69; Pulse 92; Resp 18; Pulse Ox 97% ; ko1 13:30 BP 154 / 60; Pulse 93; Resp 16; Pulse Ox 99% ; ko1 14:30 BP 152 / 64; Pulse 96; Resp 18; Pulse Ox 98% ; ko1 15:30 BP 156 / 90; Pulse 95; Resp 18; Pulse Ox 98% ; ko1 MDM: 11:46 Patient medically screened. ms3 19:13 Data reviewed: vital signs, nurses notes, lab test result(s), radiologic studies, and ms3 as a result, I will admit patient. Consideration of Admission/Observation Patient was admitted/placed on observation. Management of patient was discussed with the following: Hospitalist: . I considered the following discharge prescriptions or medication management in the emergency department Medications were administered in the Emergency Department. See MAR. Historians other than the Patient: Daughter/Son: Patient's daughter. Care significantly affected by the following chronic conditions: Hypertension, Congestive Heart Failure, CAD. Counseling: I had a detailed discussion with the patient and/or guardian regarding: the historical points, exam findings, and any diagnostic results supporting the discharge/admit diagnosis, lab results, radiology results, the need for further work-up and treatment in the hospital. ED course: Discussed necessity for admission with patient and her daughters. They understand and agree with plan. All questions were answered. Patient remained in stable condition in the emergency department.. 12/16 11:47 Order name: Basic Metabolic Panel; Complete Time: 13:16 ms3 12/16 11:47 Order name: CBC with Diff; Complete Time: 13:16 ms3 12/16 11:47 Order name: LFT's; Complete Time: 13:16 ms3 12/16 11:47 Order name: Magnesium; Complete Time: 13:16 ms3 12/16 11:47 Order name: PT-INR; Complete Time: 13:16 ms3 12/16 11:47 Order name: Troponin HS; Complete Time: 13:16 ms3 12/16 13:17 Order name: C.difficile ms3 12/16 16:26 Order name: SARS RAPID; Complete Time: 19:15 ms3 12/16 19:11 Order name: T4 Free; Complete Time: 19:15 EDMS 12/16 19:11 Order name: Thyroid Stimulating Hormone; Complete Time: 19:15 EDMS 12/16 19:11 Order name: Basic Metabolic Panel; Complete Time: 19:15 EDMS 12/16 19:11 Order name: Troponin High Sensitivity; Complete Time: 19:15 EDMS 12/17 00:49 Order name: Troponin High Sensitivity EDMS 12/17 03:55 Order name: CBC with Automated Diff EDMS 12/16 11:47 Order name: XRAY Chest (1 view); Complete Time: 15:53 ms3 12/16 11:47 Order name: EKG; Complete Time: 11:48 ms3 12/16 11:47 Order name: Cardiac monitoring; Complete Time: 11:52 ms3 12/16 11:47 Order name: EKG - Nurse/Tech; Complete Time: 11:52 ms3 12/16 11:47 Order name: IV Saline Lock; Complete Time: 11:52 ms3 12/16 11:47 Order name: Labs collected and sent; Complete Time: 12:29 ms3 12/16 11:47 Order name: O2 Per Protocol; Complete Time: 11:52 ms3 12/16 11:47 Order name: O2 Sat Monitoring; Complete Time: 11:52 ms3 12/16 13:35 Order name: CT Abd/Pelvis - IV Contrast Only ms3 12/16 13:39 Order name: Abdomen ; Complete Time: 15:53 EDMS 12/17 04:29 Order name: Basic Metabolic Panel EDMS 12/17 04:29 Order name: Phosphorus EDMS 12/17 04:29 Order name: NT PRO-BNP EDMS 12/17 04:29 Order name: Magnesium EDMS EC:29 Rate is 94 beats/min. Rhythm is regular. Left axis deviation noted. QRS interval is ms3 prolonged. Clinical impression: Non-specific intraventricular block. Interpreted by me. Reviewed by me. Administered Medications: 13:33 Drug: Potassium Chloride 40 mEq Route: PO; ap3 17:59 Follow up: Response: No adverse reaction ap3 Disposition Summary: 12/16/22 16:26 Hospitalization Ordered Hospitalization Status: Inpatient Admission ms3 Provider: Jeff Lynch ms3 Condition: Stable ms3 Problem: new ms3 Symptoms: are unchanged ms3 Bed/Room Type: Standard ms3 Location: Telemetry/MedSurg (Inpatient)(12/17/22 13:38) bd Room Assignment: [facility](12/17/22 13:38) bd Diagnosis - Hypokalemia ms3 - Elevated troponin ms3 - Renal insufficiency ms3 - Diarrhea, unspecified ms3 Forms: - Medication Reconciliation Form ms3 - SBAR form ms3 Signatures: Dispatcher [employer] EDMS Lucille James Cindy, RN RN cg Prokisch, Amanda, RN RN ap3 Beau Tripathi DO DO ms3 Corrections: (The following items were deleted from the chart) 11:47 11:44 Home Meds: metformin 500 mg Oral tab 1 tab 2 times per day; ap3 ap3 18:56 16:26 Telemetry/MedSurg (Inpatient) ms3 cg 18:56 16:26 ms3 cg 12/17 13:38 12/16 18:56 [facility] ER HOLD cg bd 12/17 13:38 12/16 18:56 ERHOLD- cg bd
[2022-12-16 17:19] LABS: SARS-CoV-2 Antigen Rapid Res Negative (Negative)
[2022-12-16] MEDS ORDERED: HYDROCODONE/APAP 5/325 MG TAB PO PRN (17:23)
[2022-12-16] MEDS ORDERED: ACETAMINOPHEN 325 MG TABLET PO PRN (17:23)
[2022-12-16] MEDS ORDERED: MAGNESIUM SULFATE 1 gm IVPB 1 GM/100 ML BAG IV ONE ×2 (17:31→17:51)
[2022-12-16] MEDS ORDERED: ONDANSETRON 4 MG/2 ML VIAL IV PRN (17:36)
--- NOTE | 2022-12-16 17:40 | P.HP ---
Certification for Inpatient Patient admitted to: Inpatient With expected LOS: >2 Midnights Patient will require the following post-hospital care: None Practitioner: I am a practitioner with admitting privileges, knowledge of patient current condition, hospital course, and medical plan of care. Services: Services provided to patient in accordance with Admission requirements found in Title 42 Section 412.3 of the Code of Federal Regulations Patient History Date of Service: 12/16/22 Reason for admission: AMS and weakness History of Present Illness: Patient is an 82-year-old female with a past medical history significant for CAD, DM 2, hypertension, GERD, HLD who presents with complaint of altered mental status and generalized weakness onset this morning. Patient currently alert and oriented x2 with intermittent confusion noted. Patient is a poor historian and unable to provide accurate history. Patient reported that she was treated for C. difficile with antibiotics and has completed her antibiotic regimen. Patient continues to have diarrhea. Patient reported associated signs and symptoms of dizziness, poor appetite, nausea, vomiting, headache and left lower quadrant pain. Patient unable to describe severity or quality of pain. Patient denies any other signs or symptoms. Symptoms are aggravated or relieved by nothing. Patient was brought to the hospital for medical evaluation. Allergies No Known Allergies Allergy (Verified 02/17/19 01:26) Home Medications: Aspirin [Aspirin EC 81 MG] 81 mg PO DAILY 02/17/19 Fenofibrate,Micronized [Fenofibrate] 200 mg PO DAILY 02/17/19 PARoxetine HCl [Paroxetine HCl] 40 mg PO DAILY 02/17/19 Pravastatin Sodium 80 mg PO DAILY 02/17/19 carvediloL [Carvedilol] 12.5 mg PO BID 02/17/19 Pantoprazole Sodium [Protonix] 40 mg PO DAILY #30 tablet. 02/20/19 Amlodipine [Norvasc*] 5 mg PO DAILY 10/11/22 Oxybutynin Chloride [Oxybutynin Chloride ER] 5 mg PO DAILY 10/11/22 Apixaban [Eliquis *] 2.5 mg PO BID #60 tab 11/16/22 Furosemide [Lasix*] 40 mg PO DAILY #30 tab 11/16/22 Sacubitril/Valsartan [Entresto 24 mg-26 mg Tablet] 1 tab PO BID #60 tab 11/16/22 - Past Medical/Surgical History Diabetic: Yes -: HTN -: Non-Insulin Dependent Type 2 Diabetes -: CAD -: HLD -: OAB -: GERD -: Depression -: eye surgery -: cholecystectomy -: partial hysterecomy Psychosocial/ Personal History: Patient lives at home alone. Her daughter lives across the street at helps care for her. - Social History Smoking Status: Former smoker Alcohol use: No CD- Drugs: No Caffeine use: Yes Place of Residence: Home Review of Systems General: Weakness, Other (Poor appetite ) Eyes: Unremarkable ENT: Unremarkable Respiratory: Unremarkable Cardiovascular: Unremarkable Gastrointestinal: Nausea, Vomiting, Abdominal Pain, Diarrhea Genitourinary: Unremarkable Musculoskeletal: Unremarkable Integumentary: Unremarkable Neurological: Weakness, Other (Diizziness, ZAMUDIO) Lymphatics: Unremarkable Physical Examination - Physical Exam General: Alert, In no apparent distress, Oriented x2, Confused HEENT: Atraumatic, PERRLA, Mucous membr. moist/pink, EOMI, Sclerae nonicteric Neck: Supple, 2+ carotid pulse no bruit, No LAD, Without JVD or thyroid abnormality Respiratory: Clear to auscultation bilaterally, Normal air movement Cardiovascular: Regular rate/rhythm, Normal S1 S2 Capillary refill: <2 Seconds Gastrointestinal: Normal bowel sounds, Tenderness Musculoskeletal: No clubbing, No contractures, No erythema, No tenderness Integumentary: No rashes, No breakdown, No significant lesion, No erythema Neurological: Normal speech, Normal tone, Normal affect Lymphatics: No axilla or inguinal lymphadenopathy - Studies Laboratory Data (last 24 hrs) 12/16/22 12:25: WBC 18.40 H, Hgb 9.8 L, Hct 29.3 L, Plt Count 210 12/16/22 12:25: Sodium 143, Potassium 2.7 L*, BUN 31 H, Creatinine 1.69 H, Glucose 95, Magnesium 1.3 L*, Total Bilirubin 0.7, AST 84 H, ALT 43, Alkaline Phosphatase 48 12/16/22 12:23: PT 13.1 H, INR 1.19 Assessment and Plan - Plan --Colitis\enteritis. Noted on imaging. Continue antibiotics. . --Diarrhea. Patient has a history of C. difficile. Recently treated. Stool studies pending to rule out any infectious process. Continue antibiotics. --Acute encephalopathy. Likely due to metabolic abnormalities. Mental status improving. Continue supportive care -- Acute pain. We will manage pain with current pain medication regimen. --Acute on chronic systolic and diastolic CHF exacerbation. Continue diuresis with Lasix. Daily weight and strict I/O. --Leukocytosis. Blood cultures pending. Continue antibiotics. --Hypokalemia\hypomagnesemia. Replete as needed. -- Elevated troponin. Likely secondary to demand ischemia. Cardiology consulted. Telemetry to monitor for any significant arrhythmia. Will await further recommendation from retail aide. --CKD 3B. Stable. We will continue to monitor renal functions. --Anemia of chronic disease. H&H stable. We will continue to monitor hemoglobin and transfuse if less than 7.0. --History of CAD. Continue aspirin and statin. --Hyperlipidemia. Continue statin. --OAB. Continue medication. --Depression. Continue medication. --Hypertension. Poorly controlled. Continue home medications and hydralazine as needed. --GERD. Patient placed on Protonix. --DVT prophylaxis with heparin subQ. Discharge Plan: Home Plan to discharge in: Greater than 2 days - Advance Directives Does patient have a Living Will: No Does patient have a Durable POA for Healthcare: No - Code Status/Comfort Care Code Status Assessed: Yes Physician Review: Patient Assessed, Agree with Above Assessment and Plan Critical Care: No
[2022-12-16] MEDS ORDERED: NA CHLORIDE 0.9% 1,000 ML ONE (17:51)
[2022-12-16] MEDS ORDERED: CIPROFLOXACIN 400mg IV 400 MG/200 ML BAG IV ONE (17:51)
[2022-12-16] MEDS ORDERED: METRONIDAZOLE 500mg IVPB 500 MG/100 ML BAG IV ONE ×2 (17:51→23:44)
[2022-12-16] MEDS: CIPROFLOXACIN 400mg IV 400 MG/200 ML BAG IV SCH (18:00)
[2022-12-16] MEDS: METRONIDAZOLE 500mg IVPB 500 MG/100 ML BAG IV SCH (18:00)
[2022-12-16] MEDS ORDERED: NA CHLORIDE 0.9% 1,000 ML IV SCH (18:00)
[2022-12-16 19:08] LABS: Potassium 3.1 mmol/L (3.5-5.1)
[2022-12-16 19:11] LABS: Thyroid Stimulating Hormone 3.11 uIU/mL (0.358-3.740); Troponin High Sensitivity 89.1 pg/mL (<58.9)
[2022-12-16] MEDS ORDERED: CIPROFLOXACIN 400mg IV 400 MG/200 ML BAG IV SCH (21:00)
[2022-12-16] MEDS: HEPARIN 5000 UNIT/ML 1 ML VIAL SQ SCH (23:14)
[2022-12-16] MEDS ORDERED: HEPARIN 5000 UNIT/ML 1 ML VIAL ONE (23:16)
[2022-12-16 23:31] VITALS: BMI 20.5
[2022-12-17] MEDS: METRONIDAZOLE 500mg IVPB 500 MG/100 ML BAG IV SCH ×3 (00:20→16:02)
[2022-12-17 03:47] LABS: Hematocrit 26.9 % (36.0-45.0); Lymphocytes % 12.8 % (15.3-44.8); MPV 7.6 fL (7.6-11.3); RBC Red Blood Cell Count 2.99 M/uL (3.86-4.86)
[2022-12-17 04:29] LABS: Magnesium 1.6 mg/dL (1.6-2.4); Phosphorus 2.8 mg/dL (2.5-4.9); Potassium 2.8 mmol/L (3.5-5.1)
[2022-12-17] MEDS ORDERED: KCL 20 MEQ/100 mL IVPB 0 ML IV ONE (05:33)
[2022-12-17] MEDS ORDERED: MAGNESIUM SULFATE 1 gm IVPB 1 GM/100 ML BAG IV ONE ×2 (05:34→06:00)
[2022-12-17] MEDS ORDERED: HYDRALAZINE HCL 20 MG/ML VIAL IV PRN (06:00)
[2022-12-17] MEDS ORDERED: PANTOPRAZOLE 40MG TABLET PO ONE (06:36)
[2022-12-17] MEDS: PANTOPRAZOLE 40MG TABLET PO SCH (06:37)
[2022-12-17] MEDS: KCL 20 MEQ/100 mL IVPB 20 MEQ/100 ML BAG IV SCH ×3 (06:44→11:00)
[2022-12-17] MEDS ORDERED: KCL 20 MEQ/100 mL IVPB 100 ML IV ONE (06:44)
[2022-12-17] MEDS ORDERED: HEPARIN 5000 UNIT/ML 1 ML VIAL ONE (07:51)
[2022-12-17] MEDS ORDERED: ASPIRIN 81 MG CHEWABLE TABLET ONE (07:51)
[2022-12-17] MEDS ORDERED: carvediloL 6.25 MG TAB ONE (07:51)
[2022-12-17] MEDS ORDERED: AMLODIPINE 5 MG TAB ONE (07:51)
[2022-12-17] MEDS ORDERED: KCL 20 MEQ/100 mL IVPB 200 ML IV ONE (07:52)
[2022-12-17] MEDS ORDERED: ATORVASTATIN 20 MG TAB ONE (07:52)
[2022-12-17] MEDS ORDERED: CIPROFLOXACIN 400mg IV 400 MG/200 ML BAG IV ONE (07:52)
[2022-12-17] MEDS ORDERED: FUROSEMIDE 40 MG/4 ML VIAL ONE (07:52)
[2022-12-17] MEDS ORDERED: METRONIDAZOLE 500mg IVPB 500 MG/100 ML BAG IV ONE (07:52)
[2022-12-17] MEDS ORDERED: NA CHLORIDE 0.9% 1,000 ML ONE (08:01)
[2022-12-17] MEDS: FUROSEMIDE 40 MG/4 ML VIAL IV SCH ×2 (08:05→16:02)
[2022-12-17] MEDS: HEPARIN 5000 UNIT/ML 1 ML VIAL SQ SCH ×2 (08:06→21:19)
[2022-12-17] MEDS: CIPROFLOXACIN 400mg IV 400 MG/200 ML BAG IV SCH ×2 (08:19→21:19)
[2022-12-17] MEDS: AMLODIPINE 5 MG TAB PO SCH (09:00)
[2022-12-17] MEDS: OXYBUTYNIN ER 5 MG TAB PO SCH (09:00)
[2022-12-17] MEDS: ATORVASTATIN 10 MG TAB PO SCH (09:00)
[2022-12-17] MEDS: ASPIRIN 81 MG CHEWABLE TABLET PO SCH (09:00)
[2022-12-17] MEDS: carvediloL 12.5 MG TAB PO SCH ×2 (09:00→21:19)
[2022-12-17] MEDS: SACUBITRIL/VALSARTAN 24/26 MG TAB PO SCH ×2 (09:00→21:19)
[2022-12-17] MEDS: PARoxetine HCL 10 MG TAB PO SCH (09:00)
[2022-12-17] MEDS: HOME MED 1 EA UNK (Fenofibrate,Micronized [Fenofibrate] 200 MG Capsule) PO SCH (09:00)
[2022-12-17 09:30] LABS: C.diff Antigen/Toxin Ag pos : Tox pos (NEG : NEG)
--- NOTE | 2022-12-17 12:29 | EKG ---
Test Date: 2022-12-16 Test Time: 11:38:09 Sales Account Representative: ALP MEASUREMENT RESULTS: Intervals: Rate: 94 NV: 140 QRSD: 150 QT: 398 QTc: 497 [place]: P: 18 NV: 140 QRS: -54 T: 76 INTERPRETIVE STATEMENTS: Normal sinus rhythm Left axis deviation Nonspecific intraventricular block Lateral infarct, age undetermined Inferior infarct, age undetermined Abnormal ECG Compared to ECG 11/12/2022 09:29:51 Myocardial infarct finding now present Left bundle-branch block no longer present Electronically Signed On 12-17-22 12:25:35 SILK WORKER by Dae Chaidez
--- NOTE | 2022-12-17 15:17 | CON ---
Date of Consultation: 12/17/2022 Reason For Consultation: Elevated troponin. History Of Present Illness: An 82-year-old female with history of mild coronary artery disease. She had a left heart catheterization about a month ago. Very mild nonobstructive coronary artery diseas e is present in the range of 20% to 30%. Came in with altered mental status. She has dyslipidemia a nd acid reflux, diabetes. No hypertension. The patient has been having intermittent confusion. She is very poor historian. She apparently was treated for C diff colitis recently and the patient is n ot able to offer any symptoms as she is very poor historian. Past Medical History: As outlined above in HPI. Medications: Refer to reconciliation sheet for detailed list. Allergies: NO KNOWN DRUG ALLERGIES. Family History: No premature coronary artery disease or cancer. Social History: Does not smoke or drink. Does not use any drugs. Review of Systems: All systems reviewed and they were negative except what mentioned in HPI. Physical Examination: Vital Signs: Show temperature is 98.8, pulse 77, breathing at 18, blood pressure is 124/68, saturati ng 98% on room air. General: Pleasant, elderly female, in no apparent distress. Head and Neck: Pupils are equal, reactive to light. Intact eye movements. No JVD. No cervical lym phadenopathy. Neck is supple. Thyroid is not enlarged. Lungs: Clear to auscultation bilaterally. No rhonchi, wheezing, or crackles. No accessory muscle u se. Heart: Regular rate and rhythm. No extra sounds. Abdomen: Soft, nontender. Bowel sounds positive. No organomegaly. No masses or hernia. No rigidi ty or rebound. Extremities: No clubbing or cyanosis. Intact pulses. Skin: No rash. Neurologic: Alert, awake, oriented x3. No acute focal deficits appreciated. Lymph Nodes: No cervical or axillary lymphadenopathy. Investigations: Her labs today; BUN is 30, creatinine 1.58, potassium is 2.8. Troponin peaked at 89 and is trending down. Hemoglobin is 9. Her chest x-ray showed no acute abnormalities. Assessment And Recommendations: 1.Elevated troponin. This is demand ischemia. The patient had recent coronary angiogram with no si gnificant coronary artery disease. No further cardiac workup is needed. 2.Chronic systolic heart failure. This is a systolic dysfunction that is nonischemic in etiology. The patient is appropriately on Coreg. Continue current management and recommend to try low-dose of Entresto and for that purpose, amlodipine can be discontinued and to titrate Coreg and Entresto to ma ximum tolerated dose and then we will re-evaluate heart with an echo few weeks from now as an outpati ent. Thank you for the consult. /SANJIV Voice ID: [id number] Report ID: [id number]
[2022-12-17] MEDS ORDERED: POTASSIUM CL SA 10 MEQ TAB PO ONE (18:00)
--- NOTE | 2022-12-17 18:34 | P.PN ---
Subjective Date of Service: 12/17/22 Chief Complaint: AMS and weakness Patient complaining of abdominal pain and multiple diarrhea episodes. She has been afebrile. Physical Examination - Vital Signs Temperature: 97.6 F Blood Pressure: 105/51 Pulse: 80 Respirations: 18 Pulse Ox (%): 98 Assessment And Plan - Current Problems (Diagnosis) (1) Clostridium difficile colitis Current Visit: Yes Status: Acute (2) DM2 (diabetes mellitus, type 2) Current Visit: No Status: Chronic Qualifiers: Diabetes mellitus fci insulin use: without fci use Diabetes mellitus complication status: with kidney complications Diabetes mellitus complication detail: with chronic kidney disease Chronic kidney disease stage: stage 3 (moderate) Chronic kidney disease stage 3 subtype: stage 3a (GFR 45- 59) Qualified Code(s): E11.22 - Type 2 diabetes mellitus with diabetic chronic kidney disease; N18.31 - Chronic kidney disease, stage 3a (3) HTN (hypertension) Current Visit: No Status: Chronic Qualifiers: Hypertension type: primary hypertension Qualified Code(s): I10 - Essential (primary) hypertension (4) Hypokalemia Current Visit: No Status: Acute (5) Chronic systolic heart failure Current Visit: Yes Status: Acute (6) Elevated troponin Current Visit: No Status: Acute (7) Anemia Current Visit: No Status: Acute Qualifiers: Anemia type: due to chronic kidney disease Chronic kidney disease stage: stage 3 (moderate) Chronic kidney disease stage 3 subtype: stage 3a (GFR 45- 59) Qualified Code(s): N18.31 - Chronic kidney disease, stage 3a; D63.1 - Anemia in chronic kidney disease - Plan Diarrhea likely secondary to C. difficile. Start oral vancomycin. Acute encephalopathy. Likely due to metabolic abnormalities. Mental status improved Elevated troponin secondary to demand ischemia. Cardiology input appreciated. Monitor and correct electrolytes as needed. Hold Lasix given diarrhea to avoid dehydration. Chronic anemia is stable. Continue to monitor CBC to follow WBC and hemoglobin. Continue aspirin and statin for history of CAD. Reconcile and continue other home medications. Infectious disease consult. Reconcile and continue home medications.
[2022-12-18] MEDS: VANCOMYCIN ORAL SOLN 250 MG/5 ML OSYR PO SCH ×3 (00:29→12:12)
[2022-12-18] MEDS: METRONIDAZOLE 500mg IVPB 500 MG/100 ML BAG IV SCH ×2 (00:30→08:35)
[2022-12-18 04:36] LABS: Absolute Lymphocytes (CBC) 1.8 K/uL (0.7-4.9); Hematocrit 24.7 % (36.0-45.0); MCV 90.3 fL (80-100); MPV 8.2 fL (7.6-11.3); RBC Red Blood Cell Count 2.73 M/uL (3.86-4.86)
[2022-12-18 04:47] LABS: Potassium 3.3 mmol/L (3.5-5.1)
[2022-12-18] MEDS ORDERED: POTASSIUM 25 MEQ EFFERV TAB PO ONE ×2 (05:00→11:33)
[2022-12-18] MEDS: PANTOPRAZOLE 40MG TABLET PO SCH (06:26)
[2022-12-18] MEDS: CIPROFLOXACIN 400mg IV 400 MG/200 ML BAG IV SCH (08:33)
[2022-12-18] MEDS: carvediloL 12.5 MG TAB PO SCH (08:36)
[2022-12-18] MEDS: SACUBITRIL/VALSARTAN 24/26 MG TAB PO SCH (08:36)
[2022-12-18] MEDS: ASPIRIN 81 MG CHEWABLE TABLET PO SCH (08:36)
[2022-12-18] MEDS: PARoxetine HCL 10 MG TAB PO SCH (08:36)
[2022-12-18] MEDS: ATORVASTATIN 10 MG TAB PO SCH (08:36)
[2022-12-18] MEDS: AMLODIPINE 5 MG TAB PO SCH (08:37)
[2022-12-18] MEDS: FUROSEMIDE 40 MG/4 ML VIAL IV SCH ×2 (08:37→16:25)
--- NOTE | 2022-12-18 08:38 | P.CNS ---
Chief Complaint: AMS and weakness History of Present Illness: Patient is an 82-year-old female with a past medical history significant for CAD, DM 2, hypertension, GERD, HLD who presents with complaint of altered mental status and generalized weakness onset this morning. Patient currently alert and oriented x2 with intermittent confusion noted. Patient is a poor historian and unable to provide accurate history. Patient reported that she was treated for C. difficile with antibiotics and has completed her antibiotic regimen. Patient continues to have diarrhea. Patient reported associated signs and symptoms of dizziness, poor appetite, nausea, vomiting, headache and left lower quadrant pain. Patient unable to describe severity or quality of pain. Patient denies any other signs or symptoms. Symptoms are aggravated or relieved by nothing. Patient was brought to the hospital for medical evaluation. ID has been consulted for IV antibiotics recommendation and management of C. Diff Allergies No Known Allergies Allergy (Verified 02/17/19 01:26) Home Medications: Aspirin [Aspirin EC 81 MG] 81 mg PO DAILY 02/17/19 Fenofibrate,Micronized [Fenofibrate] 200 mg PO DAILY 02/17/19 PARoxetine HCl [Paroxetine HCl] 40 mg PO DAILY 02/17/19 Pravastatin Sodium 80 mg PO DAILY 02/17/19 carvediloL [Carvedilol] 12.5 mg PO BID 02/17/19 Pantoprazole Sodium [Protonix] 40 mg PO DAILY #30 tablet. 02/20/19 Amlodipine [Norvasc*] 5 mg PO DAILY 10/11/22 Oxybutynin Chloride [Oxybutynin Chloride ER] 5 mg PO DAILY 10/11/22 Apixaban [Eliquis *] 2.5 mg PO BID #60 tab 11/16/22 Furosemide [Lasix*] 40 mg PO DAILY #30 tab 11/16/22 Sacubitril/Valsartan [Entresto 24 mg-26 mg Tablet] 1 tab PO BID #60 tab 11/16/22 - Past Medical/Surgical History Diabetic: Yes -: HTN -: Non-Insulin Dependent Type 2 Diabetes -: CAD -: HLD -: OAB -: GERD -: Depression -: eye surgery -: cholecystectomy -: partial hysterecomy Psychosocial/ Personal History: Patient lives at home alone. Her daughter lives across the street at helps care for her. - Social History Smoking Status: Current every day smoker Alcohol use: No CD- Drugs: No Caffeine use: Yes Place of Residence: Home Physical Examination Temp Pulse Resp BP Pulse Ox 98.7 F 85 18 149/70 H 96 12/18/22 08:00 12/18/22 08:00 12/18/22 08:00 12/18/22 08:00 12/18/22 08:00 General: Alert, In no apparent distress, Oriented x3 Respiratory: Clear to auscultation bilaterally Cardiovascular: No edema, Normal S1 S2, Edema (1+ b/l hands; 2+ b/l legs) Gastrointestinal: Normal bowel sounds Musculoskeletal: Swelling (1+ b/l hands; 2+ b/l legs) Integumentary: No breakdown, No significant lesion, Tenderness/swelling (1+ b/l hands; 2+ b/l legs) Neurological: Normal speech, Normal tone, Normal affect Acetaminophen (Acetaminophen 325 Mg Tablet) 650 mg PO Q6H PRN PRN Reason: TEMP > 100.4' F Hydrocodone Bitart/Acetaminophen (Hydrocodone/Apap 5/325 Mg Tab) 1 tab PO Q6H PRN PRN Reason: Pain scale 5-7 (Moderate) Amlodipine Besylate (Amlodipine 5 Mg Tab) 5 mg PO DAILY [facility] Last Admin: 12/18/22 08:37 Dose: 5 mg Aspirin (Aspirin 81 Mg Chewable Tablet) 81 mg PO DAILY [facility] Last Admin: 12/18/22 08:36 Dose: 81 mg Atorvastatin Calcium (Atorvastatin 10 Mg Tab) 10 mg PO DAILY [facility] Last Admin: 12/18/22 08:36 Dose: 10 mg Carvedilol (Carvedilol 12.5 Mg Tab) 12.5 mg PO BID [facility] Last Admin: 12/18/22 08:36 Dose: 12.5 mg Furosemide (Furosemide 40 Mg/4 Ml Vial) 40 mg IV BIDL [facility] Last Admin: 12/18/22 08:37 Dose: 40 mg Heparin Sodium (Porcine) (Heparin 5000 Unit/Ml 1 Ml Vial) 5,000 unit SQ Q12HR [facility] Last Admin: 12/17/22 21:19 Dose: 5,000 unit Home Med (Fenofibrate,Micronized [Fenofibrate]) 200 mg PO DAILY [facility] Last Admin: 12/17/22 09:00 Dose: 200 mg Hydralazine HCl (Hydralazine Hcl 20 Mg/Ml Vial) 10 mg IV Q6HP PRN PRN Reason: Titrate to SBP (MUST DEFINE) Metronidazole/Sodium Chloride (Flagyl 500mg/100 Ml Iv Premix) 500 mg in 100 mls @ 200 mls/hr IV Q8HR [facility]; Protocol Last Admin: 12/18/22 08:35 Dose: 100 mls Ciprofloxacin/Dextrose (Cipro 400 Mg/200 Ml Ivpb (Premix)) 400 mg in 200 mls @ 200 mls/hr IV Q12HR [facility]; Protocol Last Admin: 12/18/22 08:33 Dose: 200 mls Ondansetron HCl (Ondansetron 4 Mg/2 Ml Vial) 4 mg IV Q6HP PRN PRN Reason: NAUSEA / VOMITING Oxybutynin Chloride (Oxybutynin Er 5 Mg Tab) 5 mg PO DAILY [facility] Last Admin: 12/17/22 09:00 Dose: 5 mg Pantoprazole Sodium (Pantoprazole 40mg Tablet) 40 mg PO DAILYAC [facility]; Protocol Last Admin: 12/18/22 06:26 Dose: 40 mg Paroxetine HCl (Paroxetine Hcl 10 Mg Tab) 40 mg PO DAILY [facility] Last Admin: 12/18/22 08:36 Dose: 40 mg Sodium Chloride (Flush Normal Saline 10 Ml) 10 ml IV BID [facility] Last Admin: 12/18/22 08:37 Dose: 10 ml Vancomycin HCl (Vancomycin Oral Soln 250 Mg/5 Ml [place]) 250 mg PO Q6HR [facility]; Protocol Last Admin: 12/18/22 06:26 Dose: 250 mg Imagings Data: 12/16 CT abd/pel: IMPRESSION: No bowel obstruction, free air, abscess or other surgically emergent finding. Circumferential wall thickening throughout the colon from hepatic flexure to rectum. A few small bowel loops of slightly thickened and edematous recio. Colitis/enteritis is certainly possible if there are supporting clinical or laboratory findings. Bowel changes are possibly related to metabolic or electrolyte disordered given the overall fluid retention pattern seen on this examination. Soft tissue edema is most pronounced in the left breast. This is probably accentuated form of the overall fluid retention pattern rather than a more aggressive left breast process such as inflammatory carcinoma. An aggressive process would be unlikely to develop to this degree over a 2 month interval since the September comparison. Correlation can be made with physical exam findings - Problems (1) Clostridium difficile colitis Current Visit: Yes Status: Acute Plan: Cultures: 12/16 Stool: C. Diff positive 12/16 Stool Parasites: Pending 12/16 Stool WBC: Pending Antibiotics: IV Ciprofloxacin, 12/16 to 12/18 IV Metronidazole, 12/16 to 12/18 IV Vancomycin, 12/16 to Recommendations Stop Ciprofloxacin and Metronidazole Continue Vancomycin for total of 10 days Conclusions/Impression: - Colitis\enteritis - C. diff. 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 Continue antibiotics. - Hypokalemia\hypomagnesemia - Elevated troponin - CKD - Anemia of chronic disease - History of CAD - Hyperlipidemia - Depression - Hypertension - GERD ID will monitor the patient closely for signs of infection with fever and WBC trends Case has been discussed with Du Haywood Thank you Dr. Covington for consult
[2022-12-18] MEDS: HOME MED 1 EA UNK (Fenofibrate,Micronized [Fenofibrate] 200 MG Capsule) PO SCH (09:00)
[2022-12-18] MEDS: HEPARIN 5000 UNIT/ML 1 ML VIAL SQ SCH (09:11)
[2022-12-18 10:04] VITALS: O2SAT 96
[2022-12-18] MEDS: OXYBUTYNIN ER 5 MG TAB PO SCH (10:31)
[2022-12-18 11:26] LABS: Magnesium 1.6 mg/dL (1.6-2.4); Potassium 3.4 mmol/L (3.5-5.1)
[2022-12-18] MEDS ORDERED: MAGNESIUM SULFATE 1 gm IVPB 1 GM/100 ML BAG IV ONE (11:34)
--- NOTE | 2022-12-18 13:49 | P.DS ---
Admission Date: 12/16/22 Discharge Date: 12/18/22 Disposition: ROUTINE DISCHARGE Discharge Condition: FAIR Reason for Admission: AMS and weakness - Problems (1) Clostridium difficile colitis Current Visit: Yes Status: Acute (2) DM2 (diabetes mellitus, type 2) Current Visit: No Status: Chronic Qualifiers: Diabetes mellitus intermediate insulin use: without intermediate use Diabetes mellitus complication status: with kidney complications Diabetes mellitus complication detail: with chronic kidney disease Chronic kidney disease stage: stage 3 (moderate) Chronic kidney disease stage 3 subtype: stage 3a (GFR 45- 59) Qualified Code(s): E11.22 - Type 2 diabetes mellitus with diabetic chronic kidney disease; N18.31 - Chronic kidney disease, stage 3a (3) HTN (hypertension) Current Visit: No Status: Chronic Qualifiers: Hypertension type: primary hypertension Qualified Code(s): I10 - Essential (primary) hypertension (4) Hypokalemia Current Visit: No Status: Acute (5) Chronic systolic heart failure Current Visit: Yes Status: Acute (6) Elevated troponin Current Visit: No Status: Acute (7) Anemia Current Visit: No Status: Acute Qualifiers: Anemia type: due to chronic kidney disease Chronic kidney disease stage: stage 3 (moderate) Chronic kidney disease stage 3 subtype: stage 3a (GFR 45- 59) Qualified Code(s): N18.31 - Chronic kidney disease, stage 3a; D63.1 - Anemia in chronic kidney disease Brief History of Present Illness: Patient is an 82-year-old female with a past medical history significant for CAD, DM 2, hypertension, GERD, HLD who presented with complaint of altered mental status and generalized weakness. Patient was alert and oriented x2 with intermittent confusion noted in the ED. Patient reported that she was treated for C. difficile with antibiotics and has completed her antibiotic regimen but continues to have diarrhea. Patient reported associated signs and symptoms of dizziness, poor appetite, nausea, vomiting, headache and left lower quadrant pain. CT abdomen and pelvis reported circumferential wall thickening throughout the colon from hepatic flexure to rectum. Patient was admitted for further management. Hospital Course: Patient with reported diarrhea. Stool for C. difficile was obtained and patient tested positive indicating incomplete treatment. Infectious disease Dr. Schaefer was consulted who recommended Dificid to treat for C. difficile. Patient prescribed 10 days of Dificid. She tolerated her diet, denies abdominal pain. Mental status has improved to baseline. She had hypokalemia which was replaced. She was seen by cardiology Dr. Chaidez and her elevated troponin was considered to be secondary to demand ischemia. Patient is discharged to continue treatment for C. difficile. CT scanning reported soft tissue edema most pronounced in the left breast. Breast examination revealed edema in the subcutaneous tissue around the left nipple and and lower half half of breast, no erythema, no tenderness or warmth to suggest inflammation. Noted patient has edema in the lower extremities. No concern for inflammatory breast disease. Vital Signs/Physical Exam: Temp Pulse Resp BP Pulse Ox 97.9 F 86 18 107/51 L 98 12/18/22 12:00 12/18/22 12:00 12/18/22 12:00 12/18/22 12:00 12/18/22 12:00 General: In no apparent distress, Oriented x2 HEENT: Mucous membr. moist/pink Neck: JVD not distended Respiratory: Clear to auscultation bilaterally, Normal air movement Cardiovascular: Regular rate/rhythm, Normal S1 S2, Edema (Lower extremities) Gastrointestinal: Normal bowel sounds, Soft and benign, Non-distended, No tenderness Musculoskeletal: No tenderness, No warmth Integumentary: No cyanosis Neurological: Other (No focal motor deficit) Laboratory Data at Discharge: WBC 8.50 K/uL (4.3-10.9) 12/18/22 04:18 Hgb 8.3 g/dL (12.0-15.0) L 12/18/22 04:18 Hct 24.7 % (36.0-45.0) L 12/18/22 04:18 Plt Count 169 K/uL (152-406) 12/18/22 04:18 PT 13.1 SECONDS (9.5-12.5) H 12/16/22 12:23 INR 1.19 12/16/22 12:23 Sodium 142 mmol/L (136-145) 12/18/22 04:18 Potassium 3.4 mmol/L (3.5-5.1) L 12/18/22 11:05 BUN 27 mg/dL (7-18) H 12/18/22 04:18 Creatinine 1.57 mg/dL (0.55-1.02) H 12/18/22 04:18 Glucose 85 mg/dL (74-106) 12/18/22 04:18 Phosphorus 2.8 mg/dL (2.5-4.9) 12/17/22 03:28 Magnesium 1.6 mg/dL (1.6-2.4) 12/18/22 11:05 Total Bilirubin 0.7 mg/dL (0.2-1.0) 12/16/22 12:25 AST 84 U/L (15-37) H 12/16/22 12:25 ALT 43 U/L (13-56) 12/16/22 12:25 Alkaline Phosphatase 48 U/L (45-117) 12/16/22 12:25 Home Medications: Aspirin [Aspirin EC 81 MG] 81 mg PO DAILY 02/17/19 Fenofibrate,Micronized [Fenofibrate] 200 mg PO DAILY 02/17/19 PARoxetine HCl [Paroxetine HCl] 40 mg PO DAILY 02/17/19 Pravastatin Sodium 80 mg PO DAILY 02/17/19 carvediloL [Carvedilol] 12.5 mg PO BID 02/17/19 Amlodipine [Norvasc*] 5 mg PO DAILY 10/11/22 Oxybutynin Chloride [Oxybutynin Chloride ER] 5 mg PO DAILY 10/11/22 Apixaban [Eliquis *] 2.5 mg PO BID #60 tab 11/16/22 Furosemide [Lasix*] 40 mg PO DAILY #30 tab 11/16/22 Sacubitril/Valsartan [Entresto 24 mg-26 mg Tablet] 1 tab PO BID #60 tab 11/16/22 Fidaxomicin [Dificid] 200 mg PO BID #20 tab 12/18/22 Potassium Chloride [Klor-Con M20] 20 meq PO DAILY #30 tab 12/18/22 New Medications: Fidaxomicin [Dificid] 200 mg PO BID #20 tab Potassium Chloride [Klor-Con M20] 20 meq PO DAILY #30 tab Diet: AHA Activity: Ad dawson Followup: Isaias Henson MD [Primary Care Provider] - 1-2 Weeks Time spent managing pt's care (in minutes): 37
[2022-12-18] MEDS ORDERED: FIDAXOMICIN 200 MG TABLET PO SCH (14:00)
[2022-12-18 16:11] VITALS: BP 101/52; TEMP 98.1
== END 2022-12-18 17:24 | disposition home or self-care (01) | DRG 371 ==
LOC: ER 11:32 → ERHOLD 17:17 → 4TH 12-17 13:47
PROVIDERS: ADMIT Hospitalist; ATTEND Internal Medicine
DX: A04.72 Enterocolitis due to Clostridium difficile, not specified as recurrent (principal); G93.41 Metabolic encephalopathy; I50.43 Acute on chronic combined systolic (congestive) and diastolic (congestive) heart failure; I13.0 Hypertensive heart and chronic kidney disease with heart failure and stage 1 through stage 4 chronic kidney disease, or unspecified chronic kidney disease; I24.8 Other forms of acute ischemic heart disease; N18.31 Chronic kidney disease, stage 3a; E11.22 Type 2 diabetes mellitus with diabetic chronic kidney disease; D63.1 Anemia in chronic kidney disease; E87.6 Hypokalemia; N28.9 Disorder of kidney and ureter, unspecified; E83.42 Hypomagnesemia; N32.81 Overactive bladder; E78.5 Hyperlipidemia, unspecified; F32.A Depression, unspecified; K21.9 Gastro-esophageal reflux disease without esophagitis; I25.10 Atherosclerotic heart disease of native coronary artery without angina pectoris; R77.8 Other specified abnormalities of plasma proteins; Z60.2 Problems related to living alone; Z79.82 Long term (current) use of aspirin; Z79.01 Long term (current) use of anticoagulants; Z90.711 Acquired absence of uterus with remaining cervical stump; Z79.899 Other long term (current) drug therapy; Z87.891 Personal history of nicotine dependence; Z20.822 Contact with and (suspected) exposure to COVID-19
CPT/HCPCS: 36415; 71045; 74177; 80048; 80076; 83735; 83880; 84100; 84132; 84439; 84443; 84484; 85025; 85610; 87040; 87205; 87324; 87811; 93005; 99285; J0744; J1644; J1940; J3475; J3480; J7030; J8499; Q9967

== ENCOUNTER 2024-09-06 13:11 | Inpatient (IN) | payer OTHER ==
--- OUTSIDE RECORDS SUMMARY | 2024-09-06 13:22 | XMS REPORT | Continuity of Care Document ---
Author Name Unknown Address [address] [place] [address] [facility] thconnect Address [address] [place] [address] Care Team Providers Care Dining Service Inspector Name Role Phone Isaias Henson MD Primary Care Physician [phone] VINCE VASQUEZ Attending Clinician UnavailIsaias Simmons MD Attending Clinician [phone] Abhishek KUMAR, Shereen Shipley Attending Clinician Unavaila ble Lab, Ang - Db Attending Clinician Unavailable ISAIAS HENSON Attending Clinician Unavailable Sixto JOHNSON, Isaias Attending Clinician [phone] Miriam Jain RN Attending Clinician [phone] FREYA IBRAHIM Attending Clinician Unavailable Freya Ibrahim MD Attending Clinician [phone] Doctor Unassigned, [place] Attending Clinician U navailable Lab, Ang - Db Attending Clinician Unavailable Saw Orlando MD, Estuardo Attending Clinician [email or web address]_S Attending Clinician Unavaila martina Jones MD, Mayda Pope Attending Clinician [phone] Alexandra Phillip RN Attending Clinician Unavailable TISH BENNETT Attending Clinician Unavailable Eddie Win DO Attending Clinician [phone] Tish Bennett DO Attending Clinician [phone] Farshad JOHNSON, Jaskaran Attending Clinician [phone] JASKARAN FOX Attending Clinician Unavailable Mak KUMAR, Man Pope Attending Clinician Unavail able CHRIS TILLMAN Attending Clinician Unavailable Chris Tillman MD Attending Clinician [phone] EFFIE VERAS Attending Clinician Unavailable Queenie Mcdonald Attending Clinician [phone] Vince Vasquez MD Attending Clinician [phone] Abdiel Martínez CRNA Attending Clinician [phone] Michael Lema MD Attending Clinicia n Pob, [facility] Main Attending Clinician UnavailQUEENIE Herman Attending Clinician Unavaila ble Vaccine, [facility] Family [facility] Attending Clinician Unavailable Only, Ad[facility] Test Attending Clinician Unavailable CHRISTINE CONNER Attending Clinician Unavailable RICKY PADILLA Attending Clinician Unavaila NICOLETTE Newsome Attending Clinician Unavailable VINCE VASQUEZ Admitting Clinician Unavailab le [email or web address]_S Admitting Clinician Unavaila TISH Pandey Admitting Clinician Unavailable Tish Bennett DO Admitting Clinician [phone] Vince Vasquez MD Admitting Clinician NICOLETTE HOBBS Admitting Clinician Unavailable Payers Payer Name Policy Type Policy Number Effective Date Expirati on Date Source MEDICARE PART A AND B [id number] 2004 00:00:00 MEDICARE PART A \\T\\ B [id number] 2004 00:00:00 Problems Condition Name Condition Details Condition Category Status Onset Date Resolution Date Last Treatment Date Treating Clinician Comments Source Hypotensio n, unspecifie d hypotensio n type Hypotensio n, unspecifie d hypotensio n type Disease Active 11-28 00:00: 00 [facility] 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 Disease Active 2021-11 00:00: 00 [facility] Essential hypertensi on Essential hypertensi on Disease Active 08-18 00:00: 00 [facility] Hyperlipid emia, unspecifie d hyperlipid emia type Hyperlipid emia, unspecifie d hyperlipid emia type Disease Active 08-18 00:00: 00 [facility] Type 2 diabetes mellitus without complicati on, without long-term current use of insulin Type 2 diabetes mellitus without complicati on, without long-term current use of insulin Disease Active 08-18 00:00: 00 [facility] Trigeminal neuralgia of right side of face Trigeminal neuralgia of right side of face Disease Active 08-18 00:00: 00 [facility] Allergies, Adverse Reactions, Alerts Allergy Name Allergy Type Status Severity Reaction(s) Onset Date Inactive Date Treating Clinician Comments Source NO KNOWN ALLERGIE S Drug Class Active [facility] Social History Social Habit Start Date Stop Date Quantity Comments Source History of tobacco use Passive smoker [facility] History SDOH Social Connections Get Together [facility] History SDOH Social Connections [facility] History SDOH Social Connections Membership [facility] History SDOH Social Connections Meetings [facility] Gender identity [facility] Sexual orientation [facility] Alcoholic beverage intake 2024-06-28 00:00:00 2024-06-28 00:00:00 Current drinker of alcohol (finding) [facility] Alcohol intake 2023-09-23 00:00:00 2023-09-23 00:00:00 Ex-drinker (finding) [facility] History of Social function 2023-09-23 00:00:00 2023-09-23 00:00:00 [facility] Exposure to SARS-CoV-2 (event) 2023-02-23 00:00:00 2023-03-05 12:51:00 Not sure [facility] History SDOH Food Worry 2022-11-29 00:00:00 2022-11-29 00:00:00 1 [facility] History SDOH Food Scarcity 2022-11-29 00:00:00 2022-11-29 00:00:00 1 [facility] History SDOH Transport Med 2022-11-29 00:00:00 2022-11-29 00:00:00 2 [facility] History SDOH Transport Non-Med 2022-11-29 00:00:00 2022-11-29 00:00:00 2 [facility] History SDOH Alcohol Frequency 2022-11-29 00:00:00 2022-11-29 00:00:00 1 [facility] History SDOH Alcohol Std Drinks 2022-11-29 00:00:00 2022-11-29 00:00:00 0 [facility] History SDOH Alcohol Binge 2022-11-29 00:00:00 2022-11-29 00:00:00 1 [facility] History SDOH Social Connections Phone 2022-11-29 00:00:00 2022-11-29 00:00:00 1 [facility] History SDOH Social Connections Living 2022-11-29 00:00:00 2022-11-29 00:00:00 4 [facility] History SDOH Financial 2022-11-29 00:00:00 2022-11-29 00:00:00 5 [facility] Tobacco use and exposure 2022-10-31 00:00:00 2022-10-31 00:00:00 Smokeless tobacco non-user [facility] Sex Assigned At 1940 00:00:00 1940 00:00:00 F [facility] Smoking Status Start Date Stop Date Source Never smoked tobacco [facility] Medications Ordered Medication Name Filled Medication Name Start Date Stop Date Current Medication? Ordering Clinician Indication Dosage Frequency Signature (SIG) Comments Components Source ONDANSETRON 4 mg disintegrat ing tablet 08-23 00:00: 00 Yes [id number] TAKE 1 TABLET BY MOUTH EVERY 8 HOURS NEEDED FOR NAUSEA AND VOMITING . [facility] AMLODIPINE 5 mg tablet 07-28 00:00: 00 Yes [id number] 5mg TAKE 1 TABLET BY MOUTH EVERY DAY IN THE MORNING [facility] PANTOPRAZOL E 40 mg EC tablet 06-28 00:00: 00 Yes [id number] 40mg TAKE 1 TABLET BY MOUTH EVERY DAY IN THE MORNING [facility] sacubitriL- valsartan (ENTRESTO) 24-26 mg tablet 06-28 00:00: 00 Yes [id number] 1{tbl} Take 1 tablet by mouth every morning and evening. [facility] nystatin 100,000 unit/gram powder 06-28 00:00: 00 Yes [id number] Apply to area(s) 2 (two) times daily. [facility] HYDRALAZINE 10 mg tablet 05-25 00:00: 00 Yes [id number] TAKE 1 TABLET BY MOUTH EVERY 8 HOURS FOR 30 DAYS [facility] METOPROLOL SUCCINATE XL 50 mg 24 hr tablet 05-25 00:00: 00 Yes [id number] 50mg TAKE 1 TABLET BY MOUTH EVERY DAY IN THE MORNING [facility] FUROSEMIDE 40 mg tablet 05-25 00:00: 00 Yes [id number] 40mg TAKE 1 TABLET BY MOUTH EVERY DAY IN THE MORNING [facility] DIPHENOXYLA TE-ATROPINE 2.5-0.025 mg tablet 05-24 00:00: 00 Yes [id number] 1{tbl} TAKE 1 TABLET BY MOUTH EVERY 6 (SIX) HOURS NEEDED FOR OTHER (DIARRHEA) . [facility] ONDANSETRON 4 mg disintegrat ing tablet 6-17 00:00: 00 08-23 00:00 :00 No [id number] TAKE 1 TABLET BY MOUTH EVERY 8 HOURS NEEDED FOR NAUSEA AND VOMITING . [facility] ELIQUIS 2.5 mg tablet 5-24 00:00: 00 Yes [id number] TAKE 1 TABLET BY MOUTH IN THE MORNING AND 1 TABLET IN THE EVENING. INDICATION S: ATRIAL FIBRILLATI ON [facility] cefadroxil 500 mg capsule 03-24 00:00: 00 Yes [id number] 500mg Take 1 capsule by mouth in the morning and 1 capsule in the evening. [facility] neomycin-po lymyxin-hyd rocortisone 3.5-10,000- 1 mg/mL-unit/ mL-% otic susp 03-24 00:00: 00 Yes [id number] 3[drp] Place 3 Drops in both ears 4 (four) times daily. [facility] diphenoxyla te-atropine 2.5-0.025 mg tablet - 00:00: 00 05-24 00:00 :00 No [id number] 1{tbl} Take 1 tablet by mouth every 6 (six) hours as needed for Other (diarrhea) . [facility] DIPHENOXYLA TE-ATROPINE 2.5-0.025 mg tablet 4-29 00:00: 00 03-24 00:00 :00 No [id number] 1{tbl} TAKE 1 TABLET BY MOUTH EVERY 6 (SIX) HOURS NEEDED FOR OTHER (DIARRHEA) . [facility] furosemide 40 mg tablet 4-28 00:00: 00 05-25 00:00 :00 No [id number] 40mg TAKE 1 TABLET BY MOUTH EVERY DAY IN THE MORNING [facility] hydrOXYzine 10 mg tablet 3-27 00:00: 00 Yes [id number] 10mg Take 1 tablet by mouth every 6 (six) hours as needed for Itching. [facility] ondansetron 4 mg disintegrat ing tablet 2024-0 3-27 00:00: 00 05-10 00:00 :00 No [id number] 4mg Take 1 tablet by mouth every 8 (eight) hours as needed for Nausea and Vomiting (N/V). [facility] diphenoxyla te-atropine 2.5-0.025 mg tablet 02-17 00:00: 00 03-22 00:00 :00 No [id number] 1{tbl} Take 1 tablet by mouth every 6 (six) hours as needed for Other (diarrhea) . [facility] furosemide 40 mg tablet 02-17 00:00: 00 03-21 00:00 :00 No [id number] 40mg Take 1 tablet by mouth in the morning. [facility] NaCl 0.9% (NS) bolus infusion 1,000 mL 02-10 20:30: 00 02-10 21:04 :00 No 1000mL at 999 mL/hr, 1,000 mL, IV Infusion, ONCE, 1 dose, On Fri02/11/24 at 1530, COURTNEY [facility] fexofenadin e 180 mg tablet 12-17 00:00: 00 Yes [id number] 180mg Take 1 tablet by mouth in the morning. [facility] amLODIPine 5 mg tablet 12-17 00:00: 00 07-28 00:00 :00 No [id number] 5mg Take 1 tablet by mouth in the morning. [facility] pantoprazol e 40 mg EC tablet 12-17 00:00: 00 06-28 00:00 :00 No [id number] 40mg Take 1 tablet by mouth every morning. [facility] metoprolol succinate XL 50 mg 24 hr tablet 12-17 00:00: 00 05-25 00:00 :00 No [id number] 50mg Take 1 tablet by mouth every morning. [facility] apixaban (ELIQUIS) 2.5 mg tablet 12-17 00:00: 00 04-16 00:00 :00 No [id number] 2.5mg Take 1 tablet by mouth in the morning and 1 tablet in the evening. Indication s: atrial fibrillati on [facility] furosemide 80 mg tablet 12-17 00:00: 00 02-17 00:00 :00 No [id number] 1/2 po qd Unive rs [facility] PAROXETINE 40 mg tablet 1-11 00:00: 00 Yes [id number] TAKE 1 TABLET BY MOUTH EVERY DAY [facility] METOPROLOL SUCCINATE XL 50 mg 24 hr tablet 2022-11 00:00: 00 12-17 00:00 :00 No [id number] 50mg TAKE 1 TABLET BY MOUTH EVERY DAY IN THE MORNING [facility] AMLODIPINE 5 mg tablet 2022-11 00:00: 00 12-17 00:00 :00 No [id number] TAKE 1 TABLET BY MOUTH EVERY DAY [facility] GABAPENTIN 300 mg capsule 2022-11 00:00: 00 Yes [id number] TAKE 1 CAPSULE BY MOUTH IN THE MORNING AND IN THE EVENING [facility] FUROSEMIDE 80 mg tablet 2022-11 00:00: 00 12-17 00:00 :00 No [id number] TAKE 1 TABLET BY MOUTH EVERY OTHER DAY FOR 30 DAYS [facility] furosemide 80 mg tablet 2022-11 0 00:00: 00 Yes [id number] TAKE 1 TABLET BY MOUTH EVERY OTHER DAY FOR 30 DAYS [facility] hydrALAZINE 10 mg tablet 2022-11 0- 00:00: 00 05-25 00:00 :00 No [id number] TAKE 1 TABLET BY MOUTH EVERY 8 HOURS FOR 30 DAYS [facility] AMLODIPINE 5 mg tablet 2022-11 0-30 00:00: 00 11-19 00:00 :00 No [id number] TAKE 1 TABLET BY MOUTH EVERY DAY [facility] metoprolol succinate XL 50 mg 24 hr tablet 2022-11 0-18 00:00: 00 11-19 00:00 :00 No [id number] 50mg Take 1 tablet by mouth in the morning. [facility] gabapentin 300 mg capsule 2022-11 0-05 00:00: 00 11-12 00:00 :00 No [id number] 300mg Take 1 capsule by mouth in the morning and 1 capsule in the evening. [facility] gabapentin (Neurontin) 300 MG capsule 08-12 00:00: 00 08-12 04:59 :00 No [id number] 300mg Take 1 capsule (300 mg total) by mouth every night. [facility] HYDROcodone -acetaminop hen 5-325 mg tablet 08-07 00:00: 00 02-17 00:00 :00 No [id number] 1{tbl} Take 1 tablet by mouth 2 (two) times daily as needed for Pain (scale 4-6). Indication s: chronic pain [facility] PAROXETINE 40 mg tablet 08-06 00:00: 00 12-04 00:00 :00 No [id number] TAKE 1 TABLET BY MOUTH EVERY DAY [facility] HYDROcodone -acetaminop hen 5-325 mg tablet 07-07 00:00: 00 08-07 00:00 :00 No [id number] 1{tbl} Take 1 tablet by mouth 2 (two) times daily as needed for Pain (scale 4-6). Indication s: chronic pain [facility] isosorbide dinitrate (Isordil) 10 MG tablet 06-24 00:00: 00 Yes 10mg Q8H Take 10 mg by mouth every 8 (eight) hours. [facility] HYDROcodone -acetaminop hen 5-325 mg tablet 06-11 00:00: 00 07-07 00:00 :00 No [id number] 1{tbl} Take 1 tablet by mouth 2 (two) times daily as needed for Pain (scale 4-6). Indication s: chronic pain [facility] OXcarbazepi ne (Trileptal) 300 MG tablet 05-28 00:00: 00 Yes 1{tbl} Take 1 tablet by mouth 1 (one) time each day in the morning. [facility] OXcarbazepi ne 300 mg tablet 05-28 00:00: 00 Yes 300mg Take 1 tablet by mouth in the morning. [facility] hydrALAZINE (Apresoline ) 10 MG tablet 05-27 00:00: 00 Yes 25mg Q6H Take 25 mg by mouth every 6 (six) hours. [facility] metoprolol succinate XL (Toprol-XL) 50 MG 24 hr tablet 05-27 00:00: 00 Yes 50mg QD Take 50 mg by mouth 1 (one) time each day. [facility] minocycline 100 MG capsule 05-27 00:00: 00 Yes TAKE 1 CAPSULE BY MOUTH EVERY 12 HOURS FOR 6 DAYS [facility] furosemide (Lasix) 80 MG tablet 05-27 00:00: 00 Yes 80mg Q2D Take 80 mg by mouth every other day. [facility] isosorbide dinitrate 10 mg tablet 05-27 00:00: 00 Yes TAKE 1 TABLET BY MOUTH EVERY 8 HOURS FOR 30 DAYS [facility] HYDROcodone -acetaminop hen 5-325 mg tablet 05-21 00:00: 00 06-11 00:00 :00 No [id number] 1{tbl} Take 1 tablet by mouth 2 (two) times daily as needed for Pain (scale 4-6). Indication s: chronic pain [facility] fenofibrate micronized (Lofibra) 200 MG capsule 05-09 00:00: 00 Yes 200mg QD Take 200 mg by mouth 1 (one) time each day with breakfast. [facility] pravastatin (Pravachol) 80 MG tablet 05-09 00:00: 00 Yes 80mg Take 80 mg by mouth every night. [facility] FENOFIBRATE MICRONIZED 200 mg capsule 04-25 00:00: 00 Yes [id number] 200mg TAKE 1 CAPSULE BY MOUTH DAILY WITH BREAKFAST. [facility] PRAVASTATIN 80 mg tablet 04-25 00:00: 00 Yes [id number] TAKE 1 TABLET BY MOUTH EVERYDAY AT BEDTIME [facility] CARVEDILOL 12.5 mg tablet 04-25 00:00: 00 Yes [id number] TAKE 1 TABLET BY MOUTH TWICE A DAY [facility] ENTRESTO 24-26 mg tablet 6-02 00:00: 00 06-28 00:00 :00 No TAKE 1 TABLET BY MOUTH IN THE MORNING AND IN THE EVENING [facility] PAROXETINE 40 mg tablet 04-25 00:00: 00 08-06 00:00 :00 No [id number] TAKE 1 TABLET BY MOUTH EVERY DAY [facility] HYDROcodone -acetaminop hen 5-325 mg tablet 5-24 00:00: 00 05-21 00:00 :00 No [id number] 1{tbl} Take 1 tablet by mouth 2 (two) times daily as needed for Pain (scale 4-6). Indication s: chronic pain [facility] ENTRESTO 24-26 mg tablet 4-20 00:00: 00 04-25 00:00 :00 No TAKE 1 TABLET BY MOUTH IN THE MORNING AND IN THE EVENING [facility] furosemide 20 mg tablet -12 00:00: 00 02-17 00:00 :00 No [id number] 20mg Take 1 tablet by mouth in the morning. [facility] HYDROcodone -acetaminop hen 5-325 mg tablet 4-12 00:00: 00 04-16 00:00 :00 No [id number] 1{tbl} Take 1 tablet by mouth 2 (two) times daily as needed for Pain (scale 4-6). Indication s: chronic pain [facility] CARVEDILOL 12.5 mg tablet 24 00:00: 00 04-25 00:00 :00 No [id number] TAKE 1 TABLET BY MOUTH TWICE A DAY [facility] PAROXETINE 40 mg tablet 24 00:00: 00 04-25 00:00 :00 No [id number] TAKE 1 TABLET BY MOUTH EVERY DAY [facility] FENOFIBRATE MICRONIZED 200 mg capsule 3-24 00:00: 00 04-25 00:00 :00 No [id number] 200mg TAKE 1 CAPSULE BY MOUTH DAILY WITH BREAKFAST. [facility] PRAVASTATIN 80 mg tablet 24 00:00: 00 04-25 00:00 :00 No [id number] TAKE 1 TABLET BY MOUTH EVERYDAY AT BEDTIME [facility] HYDROcodone -acetaminop hen 5-325 mg tablet 02-13 00:00: 00 03-05 00:00 :00 No [id number] 1{tbl} Take 1 tablet by mouth 2 (two) times daily as needed for Pain (scale 4-6). Indication s: chronic pain [facility] apixaban (Eliquis) 2.5 MG tablet 02-12 00:00: 00 Yes 1{tbl} Q.5D Take 1 tablet by mouth 2 (two) times a day, in the morning and at bedtime. [facility] ELIQUIS 2.5 mg tablet 02-12 00:00: 00 12-17 00:00 :00 No 2.5mg Take 1 tablet by mouth in the morning and 1 tablet in the evening. [facility] sacubitriL- valsartan (ENTRESTO) 24-26 mg tablet 02-10 00:00: 00 03-13 00:00 :00 No 1{tbl} Take 1 tablet by mouth in the morning and 1 tablet in the evening. [facility] PANTOPRAZOL E 40 mg EC tablet 3 00:00: 00 12-17 00:00 :00 No [id number] TAKE 1 TABLET BY MOUTH EVERY DAY IN THE MORNING [facility] HYDROcodone -acetaminop hen 5-325 mg tablet 2-16 00:00: 00 02-13 00:00 :00 No [id number] 1{tbl} Take 1 tablet by mouth 2 (two) times daily as needed for Pain (scale 4-6). Indication s: chronic pain [facility] HYDROcodone -acetaminop hen 5-325 mg tablet 1-19 00:00: 00 01-09 00:00 :00 No [id number] 1{tbl} Take 1 tablet by mouth 2 (two) times daily as needed for Pain (scale 4-6). Indication s: chronic pain [facility] acidophilus 100 million cell tablet 12-03 00:00: 00 Yes [id number] 1g Take 1 tablet by mouth in the morning and 1 tablet in the evening. [facility] acidophilus 100 million cell tablet 12-03 00:00: 00 Yes [id number] 1g Take 1 tablet by mouth in the morning and 1 tablet in the evening. [facility] apixaban 2.5 mg tablet 12-03 00:00: 01-03 05:59 :00 No [id number] 2.5mg Take 1 tablet by mouth in the morning and 1 tablet in the evening. Do all this for 30 days. Indication s: atrial fibrillati on [facility] dicyclomine 10 mg capsule 12-03 00:00: 00 12-14 05:59 :00 No [id number] 10mg Take 1 capsule by mouth 4 (four) times daily for 10 days. [facility] vancomycin 125 mg capsule 12-03 00:00: 00 12-10 05:59 :00 No [id number] 125mg Take 1 capsule by mouth 4 (four) times daily for 6 days. [facility] levoFLOXaci n 500 mg tablet 12-03 00:00: 00 12-08 05:59 :00 No [id number] 500mg Take 1 tablet by mouth every 24 (twenty-fo ur) hours for 4 days. [facility] cefTRIAXone (ROCEPHIN) 1,000 mg in NaCl 0.9% (NS) 50 mL MINI-BAG 08 20:15: 00 12-06 20:14 :00 No 1000mg 1,000 mg, IV Piggyback, Q24H ABX, 5 doses, First dose on 12/01/22 at 1415, Last dose on [place] 12/05/22 at 1415, Administer over 30 Minutes, 50 mL
Reas on for Anti-Infec tive: Documented Infection< br>Documen seth Infection Site: Urine
D uration of Therapy: 7 days [facility] dicyclomine (BENTYL) capsule 10 mg 11-30 22:00: 00 Yes 10mg 10 mg, Oral, QID, First dose on Fri11/30/22 at 1600, Until Discontinu ed, Routine [facility] KCL (KLOR-CON M20) tablet 40 mEq 11-30 15:30: 00 11-30 16:28 :00 No 40meq 40 mEq, Oral, ONCE, 1 dose, On 11/30/22 at 0930, Routine [facility] KCL 20 mEq/15 mL solution 40 mEq 11-29 16:00: 00 11-29 15:09 :00 No 40meq 40 mEq, Oral, ONCE, 1 dose, On Fri11/29/22 at 1000, Routine [facility] magnesium sulfate in water 2 gram/50 mL (4 %) infusion 2 g 11-29 15:00: 00 11-29 17:45 :00 No 2g 2 g, IV Piggyback, Administer over 60 Minutes, Q1H, 2 doses, First dose on Fri11/29/22 at 0900, Last dose on Fri11/29/22 at 1000, Routine [facility] vancomycin (VANCOCIN) capsule 125 mg 11-29 14:00: 00 Yes 125mg 125 mg, Oral, QID, First dose on Fri11/29/22 at 0800, Until Discontinu ed, COURTNEY
Fa culty member approving Non-formul matt medication : MEGADC
Reason for non-formul matt use: SPECIFIC INDICATION FOR NONFORMULA RY PRODUCT
Reason for Anti-Infec tive: Empiric Therapy for Suspected Infection< br>Empiric Therapy Site: Abdominal< br>Duratio n of therapy: 5 days [facility] NaCl 0.9% (NS) IV infusion 1,000 mL 11-29 13:45: 00 11-30 01:44 :00 No 1000mL at 75 mL/hr, IV Infusion, ONCE, 1 dose, On Fri11/29/22 at 0745, Routine [facility] Sliding Scale Insulin-Reg ular + Fsbg Testing 11-29 03:00: 00 Yes Subcutaneo us, AC+HS, First dose on Fri11/28/22 at 2100, Until Discontinu ed, Routine [facility] apixaban (ELIQUIS) tablet 2.5 mg 11-29 02:00: 00 Yes [id number] 2.5mg 2.5 mg, Oral, BID, First dose (after last modificati on) on Fri11/28/22 at 2000, Until Discontinu ed, Routine
Indicatio ns: Non-Valvul ar Atrial Fibrillati on [facility] NaCl 0.9% (NS) IV infusion 1,000 mL 11-28 23:45: 00 11-29 00:04 :55 No 1000mL at 75 mL/hr, IV Infusion, ONCE, 1 dose, On [place] 11/28/22 at 1745, Routine [facility] glucagon (GLUCAGEN DIAGNOSTIC KIT) injection 1 mg 11-28 23:05: 30 Yes 1mg 1 mg, Intramuscu lar, PRN, Starting on Fri11/28/22 at 1705, Until Discontinu ed, COURTNEY, Blood Glucose < or = 70 mg/dL and patient is unable to swallow or has mental changes. [facility] dextrose 50 % in water (D50W) injection 25 mL 11-28 23:05: 30 Yes 25mL 25 mL, Slow IV Push, PRN, Starting on Fri11/28/22 at 1705, Until Discontinu ed, COURTNEY, Blood Glucose < or = 70 mg/dL and patient is unable to swallow or has mental status changes. [facility] acetaminoph en (TYLENOL) tablet 650 mg 11-28 22:55: 46 Yes 650mg 650 mg, Oral, Q6HPRN, Starting on Fri11/28/22 at 1655, Until Discontinu ed, Routine, Pain (scale 1-3) [facility] KCL (KLOR-CON M20) tablet 40 mEq 11-28 18:45: 00 11-28 18:46 :00 No 40meq 40 mEq, Oral, ONCE, 1 dose, On [place] 11/28/22 at 1245, COURTNEY [facility] NaCl 0.9% (NS) bolus infusion 1,000 mL 11-28 18:00: 00 11-28 18:13 :00 No 1000mL at 999 mL/hr, 1,000 mL, IV Infusion, ONCE, 1 dose, On [place] 11/28/22 at 1200, STAT [facility] HYDROcodone -acetaminop hen 5-325 mg tablet 2021-11 00:00: 00 12-12 00:00 :00 No [id number] 1{tbl} Take 1 tablet by mouth 2 (two) times daily as needed for Pain (scale 4-6). Indication s: chronic pain [facility] hydrocortis one (ANUSOL-HC) suppository 25 mg 2021-11 02:00: 00 Yes 25mg 25 mg, Rectal, BID, First dose on Fri11/02/22 at 2000, Until Discontinu ed, Routine [facility] ferrous sulfate 325 mg (65 mg iron) tablet 2021-11 00:00: 00 12-04 05:59 :00 No [id number] 325mg Take 1 tablet by mouth in the morning for 30 days. [facility] acidophilus 100 million cell tablet 2021-11 00:00: 00 11-14 05:59 :00 No [id number] 1g Take 1 tablet by mouth in the morning and 1 tablet in the evening. Do all this for 10 days. [facility] vancomycin 125 mg capsule 2021-11 00:00: 00 11-11 05:59 :00 No [id number] 125mg Take 1 capsule by mouth 4 (four) times daily for 7 days. [facility] PARoxetine (PAXIL) tablet 40 mg 2021-11 15:00: 00 Yes 40mg 40 mg, Oral, DAILY, First dose on Fri11/01/22 at 0900, Until Discontinu ed, Routine [facility] pantoprazol e (PROTONIX) EC tablet 40 mg 2021-11 15:00: 00 Yes 40mg 40 mg, Oral, QAM, First dose on Fri11/01/22 at 0900, Until Discontinu ed, Routine [facility] amLODIPine (NORVASC) tablet 5 mg 2021-11 15:00: 00 Yes 5mg 5 mg, Oral, DAILY, First dose on Fri11/01/22 at 0900, Until Discontinu ed, Routine [facility] Sliding Scale Insulin - Lispro (HumaLOG) + Fsbg Testing 2021-11 14:00: 00 Yes Subcutaneo us, TID MEALS, First dose on Fri11/01/22 at 0800, Until Discontinu ed, Routine [facility] potassium chloride in water 10 mEq/100 mL RTU 10 mEq 2021-11 04:00: 00 11-01 08:17 :00 No 10meq 10 mEq, IV Piggyback, Q1H, 4 doses, First dose on Fri10/31/22 at 2200, Last dose on Fri11/01/22 at 0100, Administer over 60 Minutes, 100 mL [facility] magnesium sulfate in water 2 gram/50 mL (4 %) infusion 2 g 2021-11 04:00: 00 11-01 06:05 :00 No 2g 2 g, IV Piggyback, Administer over 60 Minutes, Q1H, 2 doses, First dose on Fri10/31/22 at 2200, Last dose on Fri10/31/22 at 2300, Routine [facility] KCL (KLOR-CON M20) tablet 40 mEq 2021-11 03:30: 00 11-01 04:19 :00 No 40meq 40 mEq, Oral, ONCE, 1 dose, On Fri10/31/22 at 2130, Routine [facility] vancomycin (FIRVANQ) 50 mg/mL oral solution 125 mg 2021-11 02:30: 00 11-11 01:59 :00 No 125mg 125 mg, Oral, QID, 40 doses, First dose on Fri10/31/22 at 2030, Last dose on Fri11/10/22 at 1600, Routine
Reason for Anti-Infec tive: Documented Infection< br>Documen seth Infection Site: Abdominal< br>Duratio n of Therapy: 10 days [facility] carvediloL (COREG) tablet 12.5 mg 2021-11 02:00: 00 Yes 12.5mg 12.5 mg, Oral, BID, First dose on [facility] 10/31/22 at 2000, Until Discontinu ed, Routine [facility] apixaban (ELIQUIS) tablet 5 mg 2021-11 02:00: 00 Yes 1358 5mg 5 mg, Oral, BID, First dose on [place] 10/31/22 at 1999, Until Discontinu ed, Routine
Indicatio ns: DVT/PE [facility] glucagon (GLUCAGEN DIAGNOSTIC KIT) injection 1 mg 2021-11 23:27: 12 Yes 1mg 1 mg, Intramuscu lar, PRN, Starting on [place] 10/31/22 at 1727, Until Discontinu ed, COURTNEY, Blood Glucose < or = 70 mg/dL and patient is unable to swallow or has mental changes. [facility] dextrose 50 % in water (D50W) injection 25 mL 2021-11 23:27: 12 Yes 25mL 25 mL, Slow IV Push, PRN, Starting on [place] 10/31/22 at 1727, Until Discontinu ed, COURTNEY, Blood Glucose < or = 70 mg/dL and patient is unable to swallow or has mental status changes. [facility] HYDROcodone -acetaminop hen (NORCO) 10-325 mg tablet 1 tablet 2021-11 23:27: 04 Yes 1{tbl} 1 tablet, Oral, Q6HPRN, Starting on [place] 10/31/22 at 1727, Until Discontinu ed, Routine, Pain (scale 7-10) [facility] acetaminoph en (TYLENOL) tablet 650 mg 2021-11 23:26: 58 Yes 650mg 650 mg, Oral, Q6HPRN, Starting on [place] 10/31/22 at 1726, Until Discontinu ed, Routine, Pain (scale 1-3) [facility] NaCl 0.9% (NS) 1000 mL + KCL 20 mEq 2021-11 18:15: 00 11-01 03:16 :55 No IV Infusion, at 150 mL/hr, CONTINUOUS , Starting on [place] 10/31/22 at 1215, Until [place] 10/31/22 at 2116, COURTNEY [facility] apixaban (ELIQUIS) 5 mg tablet 2021-11 00:00: 00 12-03 00:00 :00 No [id number] TAKE 1 TABLET BY MOUTH TWICE A DAY TO 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 [facility] metroNIDAZO LE 500 mg tablet 2021-11 00:00: 00 11-03 00:00 :00 No [id number] 500mg Take 1 tablet by mouth every 8 (eight) hours. [facility] HYDROcodone -acetaminop hen 5-325 mg tablet 2021-11 00:00: 00 11-11 00:00 :00 No [id number] 1{tbl} Take 1 tablet by mouth 2 (two) times daily as needed for Pain (scale 4-6). Indication s: chronic pain [facility] PRAVASTATIN 80 mg tablet 2021-11 00:00: 00 02-14 00:00 :00 No [id number] TAKE 1 TABLET BY MOUTH EVERYDAY AT BEDTIME [facility] CARVEDILOL 12.5 mg tablet 2021-11 00:00: 00 02-14 00:00 :00 No [id number] TAKE 1 TABLET BY MOUTH TWICE A DAY [facility] FENOFIBRATE MICRONIZED 200 mg capsule 2021-11 00:00: 00 02-14 00:00 :00 No [id number] 200mg TAKE 1 CAPSULE BY MOUTH DAILY WITH BREAKFAST. [facility] PAROXETINE 40 mg tablet 2021-11 00:00: 00 02-14 00:00 :00 No [id number] TAKE 1 TABLET BY MOUTH EVERY DAY [facility] METFORMIN 500 mg tablet 2021-11 00:00: 00 12-03 00:00 :00 No [id number] TAKE 1 TABLET BY MOUTH TWICE A DAY WITH MEALS [facility] ciprofloxac in HCl 500 mg tablet 2021-11 00:00: 00 10-30 00:00 :00 No 500mg Take 500 mg by mouth in the morning and 500 mg in the evening. [facility] metroNIDAZO LE 500 mg tablet 2021-11 00:00: 00 10-30 00:00 :00 No 500mg Take 500 mg by mouth every 8 (eight) hours. [facility] HYDROcodone -acetaminop hen 5-325 mg tablet 08-19 00:00: 00 10-15 00:00 :00 No [id number] 1{tbl} Take 1 tablet by mouth 2 (two) times daily as needed for Pain (scale 4-6). Indication s: chronic pain [facility] TROSPIUM 20 mg tablet 08-09 00:00: 00 12-17 00:00 :00 No [id number] TAKE 1 TABLET BY MOUTH IN THE MORNING AND 1 TABLET IN THE EVENING. 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 INDICATION S: TO 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 Indication s: atrial fibrillati on [facility] neomycin-po lymyxin-dex amethasone (MAXITROL) 3.5 mg/g-10,000 unit/g-0.1 % ophthalmic ointment 07-17 15:52: 00 07-17 15:59 :09 No PRN, Starting on Fri07/17/22 at 1052, Until Fri07/17/22 at 1059, Routine, Intra-op [facility] sodium chloride (NS) injection 07-17 15:51: 00 07-17 15:59 :09 No PRN, Starting on Fri07/17/22 at 1051, Until Fri07/17/22 at 1059, Routine, Intra-op [facility] dexamethaso ne (DECADRON PHOSPHATE) injection 07-17 15:51: 00 07-17 15:59 :09 No PRN, Starting on Fri07/17/22 at 1051, Until Fri07/17/22 at 1059, Routine, Intra-op [facility] ceFAZolin (ANCEF) injection 07-17 15:51: 00 07-17 15:59 :09 No PRN, Starting on Fri07/17/22 at 1051, Until Fri07/17/22 at 1059, COURTNEY, [facility] carbachoL (MIOSTAT) 0.01 % intraocular injection 07-17 15:49: 00 07-17 15:59 :09 No PRN, Starting on Fri07/17/22 at 1049, Until Fri07/17/22 at 1059, Routine, Intra-op [facility] EPINEPHrine 1:1,000 (1 mg/mL) (ADRENALIN) injection 07-17 15:37: 00 07-17 15:59 :09 No PRN, Starting on Fri07/17/22 at 1037, Until Fri07/17/22 at 1059, Routine, Intra-op [facility] chondroitin sulf-sod hyaluronate (DUOVISC VISCO ELASTIC) intraocular injection 07-17 15:37: 00 07-17 15:59 :09 No PRN, Starting on Fri07/17/22 at 1037, Until Fri07/17/22 at 1059, Routine, Intra-op [facility] balanced salt irrig soln comb1 (BSS PLUS) ophthalmic solution 500 mL bag 07-17 15:37: 00 07-17 15:59 :09 No PRN, Starting on Fri07/17/22 at 1037, Until Fri07/17/22 at 1059, Routine, Intra-op [facility] water for irrigation irrigation solution 07-17 15:33: 00 07-17 15:59 :09 No PRN, Starting on Fri07/17/22 at 1033, Until Fri07/17/22 at 1059, Routine, [facility] Hyaluronida se, Human Recomb. (HYLENEX) injection 07-17 15:30: 00 07-17 15:59 :09 No PRN, Starting on Fri07/17/22 at 1030, Until Fri07/17/22 at 1059, Routine, Intra-op [facility] eye block syringe 11 mL 07-17 15:30: 00 07-17 15:59 :09 No PRN, Starting on Fri07/17/22 at 1030, Until Fri07/17/22 at 1059, Intra-op [facility] propofoL IV infusion 07-17 15:26: 00 07-17 15:58 :34 No Intravenou s, ONCE INTRA PROCEDURE, Starting on Fri07/17/22 at 1026, Until Fri07/17/22 at 1058, Routine, Intra-op [facility] labetaloL (NORMODYNE) injection 07-17 15:21: 00 07-17 15:58 :34 No Slow IV Push, ONCE INTRA PROCEDURE, Starting on Fri07/17/22 at 1021, Until Fri07/17/22 at 1058, Routine, [facility] midazolam (VERSED) injection 07-17 15:21: 00 07-17 15:58 :34 No IV Push, ONCE INTRA PROCEDURE, Starting on Fri07/17/22 at 1021, Until Fri07/17/22 at 1058, Routine, [facility] lactated ringers IV infusion 07-17 15:21: 00 07-17 15:58 :34 No Intravenou s, CONTINUOUS PRN, Starting on Fri07/17/22 at 1021, Until Fri07/17/22 at 1058, Routine, Intra-op [facility] ketorolac (ACULAR) 0.5 % ophthalmic solution 1 Drop 07-17 13:45: 00 07-17 13:49 :00 No 1[drp] 1 Drop, Right Eye, ONCE, 1 dose, On Fri07/17/22 at 0845, Routine, DSU Pre-op [facility] tropicamide (MYDRIACYL) 1 % ophthalmic drops 1 Drop 07-17 13:45: 00 07-17 13:49 :00 No 1[drp] 1 Drop, Right Eye, ONCE, 1 dose, On Fri07/17/22 at 0845, Routine, DSU Pre-op [facility] phenylephri ne (IVIS-SYNEPH RINE) 2.5 % ophthalmic drops 1 Drop 07-17 13:45: 00 07-17 13:49 :00 No 1[drp] 1 Drop, Right Eye, ONCE, 1 dose, On Fri07/17/22 at 0845, Routine, DSU Pre-op [facility] cyclopentol ate (CYCLOGYL) 1 % ophthalmic drops 1 Drop 07-17 13:45: 00 07-17 13:50 :00 No 1[drp] 1 Drop, Right Eye, ONCE, 1 dose, On Fri07/17/22 at 0845, Routine, DSU Pre-op [facility] lactated ringers IV infusion 1,000 mL 07-17 13:45: 00 07-17 14:14 :00 No 1000mL at 42 mL/hr, 1,000 mL, IV Infusion, ONCE, 1 dose, On Fri07/17/22 at 0845, Routine, DSU Pre-op [facility] HYDROcodone -acetaminop hen 5-325 mg tablet 07-15 00:00: 00 08-19 00:00 :00 No [id number] 1{tbl} Take 1 tablet by mouth 2 (two) times daily as needed for Pain (scale 4-6). Indication s: chronic pain [facility] amLODIPine (Norvasc) 5 MG tablet 07-02 00:00: 00 Yes 1{tbl} QD Take 1 tablet by mouth 1 (one) time each day. [facility] trospium 20 mg tablet 07-02 00:00: 00 08-09 00:00 :00 No [id number] 20mg Take 1 tablet by mouth in the morning and 1 tablet in the evening. [facility] HYDROcodone -acetaminop hen 5-325 mg tablet 06-13 00:00: 00 07-15 00:00 :00 No [id number] 1{tbl} Take 1 tablet by mouth 2 (two) times daily as needed for Pain (scale 4-6). Indication s: chronic pain [facility] HYDROcodone -acetaminop hen 5-325 mg tablet 05-13 00:00: 00 Yes 2745 1{tbl} Take 1 tablet by mouth 2 (two) times daily as needed for Pain (scale 4-6). Indication s: chronic pain [facility] AMLODIPINE 5 mg tablet 04-23 00:00: 00 07-02 00:00 :00 No [id number] TAKE 1 TABLET BY MOUTH EVERY DAY [facility] HYDROcodone -acetaminop hen 5-325 mg tablet 04-23 00:00: 00 05-13 00:00 :00 No [id number] 1{tbl} Take 1 tablet by mouth 2 (two) times daily as needed for Pain (scale 4-6). Indication s: chronic pain [facility] sulfamethox azole-trime thoprim (BACTRIM DS) 800-160 mg per tablet 04-23 00:00: 00 04-29 04:59 :00 No [id number] 1{tbl} Take 1 tablet by mouth 2 (two) times daily for 5 days. [facility] trospium 20 mg tablet 04-18 00:00: 00 07-02 00:00 :00 No [id number] 20mg Take 1 tablet by mouth 2 (two) times daily. [facility] oxybutynin 10 mg 24 hr tablet 04-17 00:00: 00 04-17 00:00 :00 No [id number] 10mg Take 1 tablet by mouth daily for 1 day. [facility] pantoprazol e 40 mg EC tablet 04-03 00:00: 00 01-28 00:00 :00 No [id number] 40mg Take 1 tablet by mouth every morning. [facility] pravastatin 80 mg tablet 04-03 00:00: 00 10-11 00:00 :00 No [id number] 80mg Take 1 tablet by mouth at bedtime. [facility] PARoxetine 40 mg tablet 04-03 00:00: 00 10-11 00:00 :00 No [id number] 40mg Take 1 tablet by mouth daily. [facility] metFORMIN 500 mg tablet 04-03 00:00: 00 10-11 00:00 :00 No [id number] 500mg Take 1 tablet by mouth 2 (two) times daily with meals. [facility] carvediloL 12.5 mg tablet 04-03 00:00: 00 10-11 00:00 :00 No [id number] 12.5mg Take 1 tablet by mouth 2 (two) times daily. [facility] fenofibrate micronized 200 mg capsule 04-03 00:00: 00 10-11 00:00 :00 No [id number] 200mg Take 1 capsule by mouth daily with breakfast. 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 Indication s: chronic pain [facility] AMLODIPINE 5 mg tablet 3-03 00:00: 00 04-23 00:00 :00 No [id number] TAKE 1 TABLET BY MOUTH EVERY DAY [facility] Immunizations Ordered Immunization Name Filled Immunization Name Date Status Comments Source Influenza Virus Vaccine,quad Im,preserve Free 65+ (FLUAD) 2023-08-28 00:00:00 Completed [facility] Pneumococcal 20 Conjugate, PCV20 (Prevnar 20) 2023-08-28 00:00:00 Completed SARS-COV-2 COVID-19 PFIZER JILLIAN-SUCROSE VACCINE (VENEGAS TOP) 2022-04-03 00:00:00 Completed [facility] SARS-COV-2 COVID-19 PFIZER JILLIAN-SUCROSE VACCINE (VENEGAS TOP) 2022-04-03 00:00:00 Completed [facility] SARS-COV-2 COVID-19 PFIZER JILLIAN-SUCROSE VACCINE (VENEGAS TOP) 2022-04-03 00:00:00 Completed [facility] SARS-COV-2 COVID-19 PFIZER JILLIAN-SUCROSE VACCINE (VENEGAS TOP) 2022-04-03 00:00:00 Completed [facility] SARS-COV-2 COVID-19 PFIZER JILLIAN-SUCROSE VACCINE (VENEGAS TOP) 2022-04-03 00:00:00 Completed [facility] SARS-COV-2 COVID-19 PFIZER JILLIAN-SUCROSE VACCINE (VENEGAS TOP) 2022-04-03 00:00:00 Completed [facility] SARS-COV-2 COVID-19 PFIZER JILLIAN-SUCROSE VACCINE (VENEGAS TOP) 2022-04-03 00:00:00 Completed [facility] SARS-COV-2 COVID-19 PFIZER JILLIAN-SUCROSE VACCINE (VENEGAS TOP) 2022-04-03 00:00:00 Completed [facility] SARS-COV-2 COVID-19 PFIZER JILLIAN-SUCROSE VACCINE (VENEGAS TOP) 2022-04-03 00:00:00 Completed [facility] SARS-COV-2 COVID-19 PFIZER JILLIAN-SUCROSE VACCINE (VENEGAS TOP) 2022-04-03 00:00:00 Completed [facility] SARS-COV-2 COVID-19 PFIZER JILLIAN-SUCROSE VACCINE (VENEGAS TOP) 2022-04-03 00:00:00 Completed [facility] SARS-COV-2 COVID-19 PFIZER JILLIAN-SUCROSE VACCINE (VENEGAS TOP) 2022-04-03 00:00:00 Completed [facility] SARS-COV-2 COVID-19 PFIZER JILLIAN-SUCROSE VACCINE (VENEGAS TOP) 2022-04-03 00:00:00 Completed [facility] SARS-COV-2 COVID-19 PFIZER JILLIAN-SUCROSE VACCINE (VENEGAS TOP) 2022-04-03 00:00:00 Completed [facility] SARS-COV-2 COVID-19 PFIZER JILLIAN-SUCROSE VACCINE (VENEGAS TOP) 2022-04-03 00:00:00 Completed [facility] SARS-COV-2 COVID-19 PFIZER JILLIAN-SUCROSE VACCINE (VENEGAS TOP) 2022-04-03 00:00:00 Completed [facility] SARS-COV-2 COVID-19 PFIZER JILLIAN-SUCROSE VACCINE (VENEGAS TOP) 2022-04-03 00:00:00 Completed [facility] SARS-COV-2 COVID-19 PFIZER JILLIAN-SUCROSE VACCINE (VENEGAS TOP) 2022-04-03 00:00:00 Completed [facility] SARS-COV-2 COVID-19 PFIZER JILLIAN-SUCROSE VACCINE (VENEGAS TOP) 2022-04-03 00:00:00 Completed [facility] SARS-COV-2 COVID-19 PFIZER JILLIAN-SUCROSE VACCINE (VENEGAS TOP) 2022-04-03 00:00:00 Completed [facility] SARS-COV-2 COVID-19 PFIZER JILLIAN-SUCROSE VACCINE (VENEGAS TOP) 2022-04-03 00:00:00 Completed [facility] SARS-COV-2 COVID-19 PFIZER JILLIAN-SUCROSE VACCINE (VENEGAS TOP) 2022-04-03 00:00:00 Completed [facility] SARS-COV-2 COVID-19 PFIZER JILLIAN-SUCROSE VACCINE (VENEGAS TOP) 2022-04-03 00:00:00 Completed [facility] SARS-COV-2 COVID-19 PFIZER JILLIAN-SUCROSE VACCINE (VENEGAS TOP) 2022-04-03 00:00:00 Completed [facility] SARS-COV-2 COVID-19 PFIZER JILLIAN-SUCROSE VACCINE (VENEGAS TOP) 2022-04-03 00:00:00 Completed [facility] SARS-COV-2 COVID-19 PFIZER JILLIAN-SUCROSE VACCINE (VENEGAS TOP) 2022-04-03 00:00:00 Completed [facility] SARS-COV-2 COVID-19 PFIZER JILLIAN-SUCROSE VACCINE (VENEGAS TOP) 2022-04-03 00:00:00 Completed [facility] SARS-COV-2 COVID-19 PFIZER JILLIAN-SUCROSE VACCINE (VENEGAS TOP) 2022-04-03 00:00:00 Completed [facility] SARS-COV-2 COVID-19 PFIZER JILLIAN-SUCROSE VACCINE (VENEGAS TOP) 2022-04-03 00:00:00 Completed [facility] SARS-COV-2 COVID-19 PFIZER JILLIAN-SUCROSE VACCINE (VENEGAS TOP) 2022-04-03 00:00:00 Completed [facility] SARS-COV-2 COVID-19 PFIZER JILLIAN-SUCROSE VACCINE (VENEGAS TOP) 2022-04-03 00:00:00 Completed [facility] SARS-COV-2 COVID-19 PFIZER JILLIAN-SUCROSE VACCINE (VENEGAS TOP) 2022-04-03 00:00:00 Completed [facility] SARS-COV-2 COVID-19 PFIZER JILLIAN-SUCROSE VACCINE (VENEGAS TOP) 2022-04-03 00:00:00 Completed [facility] SARS-COV-2 COVID-19 PFIZER JILLIAN-SUCROSE VACCINE (VENEGAS TOP) 2022-04-03 00:00:00 Completed [facility] SARS-COV-2 COVID-19 PFIZER JILLIAN-SUCROSE VACCINE (VENEGAS TOP) 2022-04-03 00:00:00 Completed [facility] SARS-COV-2 COVID-19 PFIZER JILLIAN-SUCROSE VACCINE (VENEGAS TOP) 2022-04-03 00:00:00 Completed [facility] SARS-COV-2 COVID-19 PFIZER JILLIAN-SUCROSE VACCINE (VENEGAS TOP) 2022-04-03 00:00:00 Completed [facility] SARS-COV-2 COVID-19 PFIZER JILLIAN-SUCROSE VACCINE (VENEGAS TOP) 2022-04-03 00:00:00 Completed [facility] SARS-COV-2 COVID-19 PFIZER JILLIAN-SUCROSE VACCINE (VENEGAS TOP) 2022-04-03 00:00:00 Completed [facility] SARS-COV-2 COVID-19 PFIZER JILLIAN-SUCROSE VACCINE (VENEGAS TOP) 2022-04-03 00:00:00 Completed [facility] SARS-COV-2 COVID-19 PFIZER JILLIAN-SUCROSE VACCINE (VENEGAS TOP) 2022-04-03 00:00:00 Completed [facility] SARS-COV-2 COVID-19 PFIZER JILLIAN-SUCROSE VACCINE (VENEGAS TOP) 2022-04-03 00:00:00 Completed [facility] SARS-COV-2 COVID-19 PFIZER JILLIAN-SUCROSE VACCINE (VENEGAS TOP) 2022-04-03 00:00:00 Completed [facility] SARS-COV-2 COVID-19 PFIZER JILLIAN-SUCROSE VACCINE (VENEGAS TOP) 2022-04-03 00:00:00 Completed [facility] SARS-COV-2 COVID-19 PFIZER JILLIAN-SUCROSE VACCINE (VENEGAS TOP) 2022-04-03 00:00:00 Completed [facility] SARS-COV-2 COVID-19 PFIZER JILLIAN-SUCROSE VACCINE (VENEGAS TOP) 2022-04-03 00:00:00 Completed [facility] SARS-COV-2 COVID-19 PFIZER JILLIAN-SUCROSE VACCINE (VENEGAS TOP) 2022-04-03 00:00:00 Completed [facility] SARS-COV-2 COVID-19 PFIZER JILLIAN-SUCROSE VACCINE (VENEGAS TOP) 2022-04-03 00:00:00 Completed [facility] SARS-COV-2 COVID-19 PFIZER JILLIAN-SUCROSE VACCINE (VENEGAS TOP) 2022-04-03 00:00:00 Completed [facility] SARS-COV-2 COVID-19 PFIZER JILLIAN-SUCROSE VACCINE (VENEGAS TOP) 2022-04-03 00:00:00 Completed [facility] SARS-COV-2 COVID-19 PFIZER JILLIAN-SUCROSE VACCINE (VENEGAS TOP) 2022-04-03 00:00:00 Completed [facility] SARS-COV-2 COVID-19 PFIZER JILLIAN-SUCROSE VACCINE (VENEGAS TOP) 2022-04-03 00:00:00 Completed [facility] SARS-COV-2 COVID-19 PFIZER JILLIAN-SUCROSE VACCINE (VENEGAS TOP) 2022-04-03 00:00:00 Completed [facility] SARS-COV-2 COVID-19 PFIZER JILLIAN-SUCROSE VACCINE (VENEGAS TOP) 2022-04-03 00:00:00 Completed [facility] SARS-COV-2 COVID-19 PFIZER JILLIAN-SUCROSE VACCINE (VENEGAS TOP) 2022-04-03 00:00:00 Completed [facility] SARS-COV-2 COVID-19 PFIZER JILLIAN-SUCROSE VACCINE (VENEGAS TOP) 2022-04-03 00:00:00 Completed [facility] SARS-COV-2 COVID-19 PFIZER JILLIAN-SUCROSE VACCINE (VENEGAS TOP) 2022-04-03 00:00:00 Completed [facility] SARS-COV-2 COVID-19 PFIZER JILLIAN-SUCROSE VACCINE (VENEGAS TOP) 2022-04-03 00:00:00 Completed [facility] SARS-COV-2 COVID-19 PFIZER JILLIAN-SUCROSE VACCINE (VENEGAS TOP) 2022-04-03 00:00:00 Completed [facility] SARS-COV-2 COVID-19 PFIZER JILLIAN-SUCROSE VACCINE (VENEGAS TOP) 2022-04-03 00:00:00 Completed [facility] SARS-COV-2 COVID-19 PFIZER JILLIAN-SUCROSE VACCINE (VENEGAS TOP) 2022-04-03 00:00:00 Completed [facility] SARS-COV-2 COVID-19 PFIZER JILLIAN-SUCROSE VACCINE (VENEGAS TOP) 2022-04-03 00:00:00 Completed [facility] SARS-COV-2 COVID-19 PFIZER JILLIAN-SUCROSE VACCINE (VENEGAS TOP) 2022-04-03 00:00:00 Completed [facility] SARS-COV-2 COVID-19 PFIZER JILLIAN-SUCROSE VACCINE (VENEGAS TOP) 2022-04-03 00:00:00 Completed [facility] SARS-COV-2 COVID-19 PFIZER JILLIAN-SUCROSE VACCINE (VENEGAS TOP) 2022-04-03 00:00:00 Completed [facility] SARS-COV-2 COVID-19 PFIZER JILLIAN-SUCROSE VACCINE (VENEGAS TOP) 2022-04-03 00:00:00 Completed [facility] SARS-COV-2 COVID-19 PFIZER JILLIAN-SUCROSE VACCINE (VENEGAS TOP) 2022-04-03 00:00:00 Completed [facility] SARS-COV-2 COVID-19 PFIZER JILLIAN-SUCROSE VACCINE (VENEGAS TOP) 2022-04-03 00:00:00 Completed [facility] SARS-COV-2 COVID-19 PFIZER JILLIAN-SUCROSE VACCINE (VENEGAS TOP) 2022-04-03 00:00:00 Completed [facility] SARS-COV-2 COVID-19 PFIZER JILLIAN-SUCROSE VACCINE (VENEGAS TOP) 2022-04-03 00:00:00 Completed [facility] SARS-COV-2 COVID-19 PFIZER JILLIAN-SUCROSE VACCINE (VENEGAS TOP) 2022-04-03 00:00:00 Completed [facility] SARS-COV-2 COVID-19 PFIZER JILLIAN-SUCROSE VACCINE (VENEGAS TOP) 2022-04-03 00:00:00 Completed [facility] SARS-COV-2 COVID-19 PFIZER JILLIAN-SUCROSE VACCINE (VENEGAS TOP) 2022-04-03 00:00:00 Completed [facility] SARS-COV-2 COVID-19 PFIZER JILLIAN-SUCROSE VACCINE (VENEGAS TOP) 2022-04-03 00:00:00 Completed [facility] SARS-COV-2 COVID-19 PFIZER JILLIAN-SUCROSE VACCINE (VENEGAS TOP) 2022-04-03 00:00:00 Completed [facility] SARS-COV-2 COVID-19 PFIZER JILLIAN-SUCROSE VACCINE (VENEGAS TOP) 2022-04-03 00:00:00 Completed [facility] SARS-COV-2 COVID-19 PFIZER JILLIAN-SUCROSE VACCINE (VENEGAS TOP) 2022-04-03 00:00:00 Completed [facility] SARS-COV-2 COVID-19 PFIZER JILLIAN-SUCROSE VACCINE (VENEGAS TOP) 2022-04-03 00:00:00 Completed [facility] SARS-COV-2 COVID-19 PFIZER VACCINE 2021-01-05 00:00:00 Completed [facility] SARS-COV-2 COVID-19 PFIZER VACCINE 2021-01-05 00:00:00 Completed [facility] SARS-COV-2 COVID-19 PFIZER VACCINE 2021-01-05 00:00:00 Completed [facility] SARS-COV-2 COVID-19 PFIZER VACCINE 2021-01-05 00:00:00 Completed [facility] SARS-COV-2 COVID-19 PFIZER VACCINE 2021-01-05 00:00:00 Completed [facility] SARS-COV-2 COVID-19 PFIZER VACCINE 2021-01-05 00:00:00 Completed [facility] SARS-COV-2 COVID-19 PFIZER VACCINE 2021-01-05 00:00:00 Completed [facility] SARS-COV-2 COVID-19 PFIZER VACCINE 2021-01-05 00:00:00 Completed [facility] SARS-COV-2 COVID-19 PFIZER VACCINE 2021-01-05 00:00:00 Completed [facility] SARS-COV-2 COVID-19 PFIZER VACCINE 2021-01-05 00:00:00 Completed [facility] SARS-COV-2 COVID-19 PFIZER VACCINE 2021-01-05 00:00:00 Completed [facility] SARS-COV-2 COVID-19 PFIZER VACCINE 2021-01-05 00:00:00 Completed [facility] SARS-COV-2 COVID-19 PFIZER VACCINE 2021-01-05 00:00:00 Completed [facility] SARS-COV-2 COVID-19 PFIZER VACCINE 2021-01-05 00:00:00 Completed [facility] SARS-COV-2 COVID-19 PFIZER VACCINE 2021-01-05 00:00:00 Completed [facility] SARS-COV-2 COVID-19 PFIZER VACCINE 2021-01-05 00:00:00 Completed [facility] SARS-COV-2 COVID-19 PFIZER VACCINE 2021-01-05 00:00:00 Completed [facility] SARS-COV-2 COVID-19 PFIZER VACCINE 2021-01-05 00:00:00 Completed [facility] SARS-COV-2 COVID-19 PFIZER VACCINE 2021-01-05 00:00:00 Completed [facility] SARS-COV-2 COVID-19 PFIZER VACCINE 2021-01-05 00:00:00 Completed [facility] SARS-COV-2 COVID-19 PFIZER VACCINE 2021-01-05 00:00:00 Completed [facility] SARS-COV-2 COVID-19 PFIZER VACCINE 2021-01-05 00:00:00 Completed [facility] SARS-COV-2 COVID-19 PFIZER VACCINE 2021-01-05 00:00:00 Completed [facility] SARS-COV-2 COVID-19 PFIZER VACCINE 2021-01-05 00:00:00 Completed [facility] SARS-COV-2 COVID-19 PFIZER VACCINE 2021-01-05 00:00:00 Completed [facility] SARS-COV-2 COVID-19 PFIZER VACCINE 2021-01-05 00:00:00 Completed [facility] SARS-COV-2 COVID-19 PFIZER VACCINE 2021-01-05 00:00:00 Completed [facility] SARS-COV-2 COVID-19 PFIZER VACCINE 2021-01-05 00:00:00 Completed [facility] SARS-COV-2 COVID-19 PFIZER VACCINE 2021-01-05 00:00:00 Completed [facility] SARS-COV-2 COVID-19 PFIZER VACCINE 2021-01-05 00:00:00 Completed [facility] SARS-COV-2 COVID-19 PFIZER VACCINE 2021-01-05 00:00:00 Completed [facility] SARS-COV-2 COVID-19 PFIZER VACCINE 2021-01-05 00:00:00 Completed [facility] SARS-COV-2 COVID-19 PFIZER VACCINE 2021-01-05 00:00:00 Completed [facility] SARS-COV-2 COVID-19 PFIZER VACCINE 2021-01-05 00:00:00 Completed [facility] SARS-COV-2 COVID-19 PFIZER VACCINE 2021-01-05 00:00:00 Completed [facility] SARS-COV-2 COVID-19 PFIZER VACCINE 2021-01-05 00:00:00 Completed [facility] SARS-COV-2 COVID-19 PFIZER VACCINE 2021-01-05 00:00:00 Completed [facility] SARS-COV-2 COVID-19 PFIZER VACCINE 2021-01-05 00:00:00 Completed [facility] SARS-COV-2 COVID-19 PFIZER VACCINE 2021-01-05 00:00:00 Completed [facility] SARS-COV-2 COVID-19 PFIZER VACCINE 2021-01-05 00:00:00 Completed [facility] SARS-COV-2 COVID-19 PFIZER VACCINE 2021-01-05 00:00:00 Completed [facility] SARS-COV-2 COVID-19 PFIZER VACCINE 2021-01-05 00:00:00 Completed [facility] SARS-COV-2 COVID-19 PFIZER VACCINE 2021-01-05 00:00:00 Completed [facility] SARS-COV-2 COVID-19 PFIZER VACCINE 2021-01-05 00:00:00 Completed [facility] SARS-COV-2 COVID-19 PFIZER VACCINE 2021-01-05 00:00:00 Completed [facility] SARS-COV-2 COVID-19 PFIZER VACCINE 2021-01-05 00:00:00 Completed [facility] SARS-COV-2 COVID-19 PFIZER VACCINE 2021-01-05 00:00:00 Completed [facility] SARS-COV-2 COVID-19 PFIZER VACCINE 2021-01-05 00:00:00 Completed [facility] SARS-COV-2 COVID-19 PFIZER VACCINE 2021-01-05 00:00:00 Completed [facility] SARS-COV-2 COVID-19 PFIZER VACCINE 2021-01-05 00:00:00 Completed [facility] SARS-COV-2 COVID-19 PFIZER VACCINE 2021-01-05 00:00:00 Completed [facility] SARS-COV-2 COVID-19 PFIZER VACCINE 2021-01-05 00:00:00 Completed [facility] SARS-COV-2 COVID-19 PFIZER VACCINE 2021-01-05 00:00:00 Completed [facility] SARS-COV-2 COVID-19 PFIZER VACCINE 2021-01-05 00:00:00 Completed [facility] SARS-COV-2 COVID-19 PFIZER VACCINE 2021-01-05 00:00:00 Completed [facility] SARS-COV-2 COVID-19 PFIZER VACCINE 2021-01-05 00:00:00 Completed [facility] SARS-COV-2 COVID-19 PFIZER VACCINE 2021-01-05 00:00:00 Completed [facility] SARS-COV-2 COVID-19 PFIZER VACCINE 2021-01-05 00:00:00 Completed [facility] SARS-COV-2 COVID-19 PFIZER VACCINE 2021-01-05 00:00:00 Completed [facility] SARS-COV-2 COVID-19 PFIZER VACCINE 2021-01-05 00:00:00 Completed [facility] SARS-COV-2 COVID-19 PFIZER VACCINE 2021-01-05 00:00:00 Completed [facility] SARS-COV-2 COVID-19 PFIZER VACCINE 2021-01-05 00:00:00 Completed [facility] SARS-COV-2 COVID-19 PFIZER VACCINE 2021-01-05 00:00:00 Completed [facility] SARS-COV-2 COVID-19 PFIZER VACCINE 2021-01-05 00:00:00 Completed [facility] SARS-COV-2 COVID-19 PFIZER VACCINE 2021-01-05 00:00:00 Completed [facility] SARS-COV-2 COVID-19 PFIZER VACCINE 2021-01-05 00:00:00 Completed [facility] SARS-COV-2 COVID-19 PFIZER VACCINE 2021-01-05 00:00:00 Completed [facility] SARS-COV-2 COVID-19 PFIZER VACCINE 2021-01-05 00:00:00 Completed [facility] SARS-COV-2 COVID-19 PFIZER VACCINE 2021-01-05 00:00:00 Completed [facility] SARS-COV-2 COVID-19 PFIZER VACCINE 2021-01-05 00:00:00 Completed [facility] SARS-COV-2 COVID-19 PFIZER VACCINE 2021-01-05 00:00:00 Completed [facility] SARS-COV-2 COVID-19 PFIZER VACCINE 2021-01-05 00:00:00 Completed [facility] SARS-COV-2 COVID-19 PFIZER VACCINE 2021-01-05 00:00:00 Completed [facility] SARS-COV-2 COVID-19 PFIZER VACCINE 2021-01-05 00:00:00 Completed [facility] SARS-COV-2 COVID-19 PFIZER VACCINE 2021-01-05 00:00:00 Completed [facility] SARS-COV-2 COVID-19 PFIZER VACCINE 2021-01-05 00:00:00 Completed [facility] SARS-COV-2 COVID-19 PFIZER VACCINE 2021-01-05 00:00:00 Completed [facility] SARS-COV-2 COVID-19 PFIZER VACCINE 2021-01-05 00:00:00 Completed SARS-COV-2 COVID-19 PFIZER VACCINE 2020-12-15 00:00:00 Completed [facility] SARS-COV-2 COVID-19 PFIZER VACCINE 2020-12-15 00:00:00 Completed [facility] SARS-COV-2 COVID-19 PFIZER VACCINE 2020-12-15 00:00:00 Completed [facility] SARS-COV-2 COVID-19 PFIZER VACCINE 2020-12-15 00:00:00 Completed [facility] SARS-COV-2 COVID-19 PFIZER VACCINE 2020-12-15 00:00:00 Completed [facility] SARS-COV-2 COVID-19 PFIZER VACCINE 2020-12-15 00:00:00 Completed [facility] SARS-COV-2 COVID-19 PFIZER VACCINE 2020-12-15 00:00:00 Completed [facility] SARS-COV-2 COVID-19 PFIZER VACCINE 2020-12-15 00:00:00 Completed [facility] SARS-COV-2 COVID-19 PFIZER VACCINE 2020-12-15 00:00:00 Completed [facility] SARS-COV-2 COVID-19 PFIZER VACCINE 2020-12-15 00:00:00 Completed [facility] SARS-COV-2 COVID-19 PFIZER VACCINE 2020-12-15 00:00:00 Completed [facility] SARS-COV-2 COVID-19 PFIZER VACCINE 2020-12-15 00:00:00 Completed [facility] SARS-COV-2 COVID-19 PFIZER VACCINE 2020-12-15 00:00:00 Completed [facility] SARS-COV-2 COVID-19 PFIZER VACCINE 2020-12-15 00:00:00 Completed [facility] SARS-COV-2 COVID-19 PFIZER VACCINE 2020-12-15 00:00:00 Completed [facility] SARS-COV-2 COVID-19 PFIZER VACCINE 2020-12-15 00:00:00 Completed [facility] SARS-COV-2 COVID-19 PFIZER VACCINE 2020-12-15 00:00:00 Completed [facility] SARS-COV-2 COVID-19 PFIZER VACCINE 2020-12-15 00:00:00 Completed [facility] SARS-COV-2 COVID-19 PFIZER VACCINE 2020-12-15 00:00:00 Completed [facility] SARS-COV-2 COVID-19 PFIZER VACCINE 2020-12-15 00:00:00 Completed [facility] SARS-COV-2 COVID-19 PFIZER VACCINE 2020-12-15 00:00:00 Completed [facility] SARS-COV-2 COVID-19 PFIZER VACCINE 2020-12-15 00:00:00 Completed [facility] SARS-COV-2 COVID-19 PFIZER VACCINE 2020-12-15 00:00:00 Completed [facility] SARS-COV-2 COVID-19 PFIZER VACCINE 2020-12-15 00:00:00 Completed [facility] SARS-COV-2 COVID-19 PFIZER VACCINE 2020-12-15 00:00:00 Completed [facility] SARS-COV-2 COVID-19 PFIZER VACCINE 2020-12-15 00:00:00 Completed [facility] SARS-COV-2 COVID-19 PFIZER VACCINE 2020-12-15 00:00:00 Completed [facility] SARS-COV-2 COVID-19 PFIZER VACCINE 2020-12-15 00:00:00 Completed [facility] SARS-COV-2 COVID-19 PFIZER VACCINE 2020-12-15 00:00:00 Completed [facility] SARS-COV-2 COVID-19 PFIZER VACCINE 2020-12-15 00:00:00 Completed [facility] SARS-COV-2 COVID-19 PFIZER VACCINE 2020-12-15 00:00:00 Completed [facility] SARS-COV-2 COVID-19 PFIZER VACCINE 2020-12-15 00:00:00 Completed [facility] SARS-COV-2 COVID-19 PFIZER VACCINE 2020-12-15 00:00:00 Completed [facility] SARS-COV-2 COVID-19 PFIZER VACCINE 2020-12-15 00:00:00 Completed [facility] SARS-COV-2 COVID-19 PFIZER VACCINE 2020-12-15 00:00:00 Completed [facility] SARS-COV-2 COVID-19 PFIZER VACCINE 2020-12-15 00:00:00 Completed [facility] SARS-COV-2 COVID-19 PFIZER VACCINE 2020-12-15 00:00:00 Completed [facility] SARS-COV-2 COVID-19 PFIZER VACCINE 2020-12-15 00:00:00 Completed [facility] SARS-COV-2 COVID-19 PFIZER VACCINE 2020-12-15 00:00:00 Completed [facility] SARS-COV-2 COVID-19 PFIZER VACCINE 2020-12-15 00:00:00 Completed [facility] SARS-COV-2 COVID-19 PFIZER VACCINE 2020-12-15 00:00:00 Completed [facility] SARS-COV-2 COVID-19 PFIZER VACCINE 2020-12-15 00:00:00 Completed [facility] SARS-COV-2 COVID-19 PFIZER VACCINE 2020-12-15 00:00:00 Completed [facility] SARS-COV-2 COVID-19 PFIZER VACCINE 2020-12-15 00:00:00 Completed [facility] SARS-COV-2 COVID-19 PFIZER VACCINE 2020-12-15 00:00:00 Completed [facility] SARS-COV-2 COVID-19 PFIZER VACCINE 2020-12-15 00:00:00 Completed [facility] SARS-COV-2 COVID-19 PFIZER VACCINE 2020-12-15 00:00:00 Completed [facility] SARS-COV-2 COVID-19 PFIZER VACCINE 2020-12-15 00:00:00 Completed [facility] SARS-COV-2 COVID-19 PFIZER VACCINE 2020-12-15 00:00:00 Completed [facility] SARS-COV-2 COVID-19 PFIZER VACCINE 2020-12-15 00:00:00 Completed [facility] SARS-COV-2 COVID-19 PFIZER VACCINE 2020-12-15 00:00:00 Completed [facility] SARS-COV-2 COVID-19 PFIZER VACCINE 2020-12-15 00:00:00 Completed [facility] SARS-COV-2 COVID-19 PFIZER VACCINE 2020-12-15 00:00:00 Completed [facility] SARS-COV-2 COVID-19 PFIZER VACCINE 2020-12-15 00:00:00 Completed [facility] SARS-COV-2 COVID-19 PFIZER VACCINE 2020-12-15 00:00:00 Completed [facility] SARS-COV-2 COVID-19 PFIZER VACCINE 2020-12-15 00:00:00 Completed [facility] SARS-COV-2 COVID-19 PFIZER VACCINE 2020-12-15 00:00:00 Completed [facility] SARS-COV-2 COVID-19 PFIZER VACCINE 2020-12-15 00:00:00 Completed [facility] SARS-COV-2 COVID-19 PFIZER VACCINE 2020-12-15 00:00:00 Completed [facility] SARS-COV-2 COVID-19 PFIZER VACCINE 2020-12-15 00:00:00 Completed [facility] SARS-COV-2 COVID-19 PFIZER VACCINE 2020-12-15 00:00:00 Completed [facility] SARS-COV-2 COVID-19 PFIZER VACCINE 2020-12-15 00:00:00 Completed [facility] SARS-COV-2 COVID-19 PFIZER VACCINE 2020-12-15 00:00:00 Completed [facility] SARS-COV-2 COVID-19 PFIZER VACCINE 2020-12-15 00:00:00 Completed [facility] SARS-COV-2 COVID-19 PFIZER VACCINE 2020-12-15 00:00:00 Completed [facility] SARS-COV-2 COVID-19 PFIZER VACCINE 2020-12-15 00:00:00 Completed [facility] SARS-COV-2 COVID-19 PFIZER VACCINE 2020-12-15 00:00:00 Completed [facility] SARS-COV-2 COVID-19 PFIZER VACCINE 2020-12-15 00:00:00 Completed [facility] SARS-COV-2 COVID-19 PFIZER VACCINE 2020-12-15 00:00:00 Completed [facility] SARS-COV-2 COVID-19 PFIZER VACCINE 2020-12-15 00:00:00 Completed [facility] SARS-COV-2 COVID-19 PFIZER VACCINE 2020-12-15 00:00:00 Completed [facility] SARS-COV-2 COVID-19 PFIZER VACCINE 2020-12-15 00:00:00 Completed [facility] SARS-COV-2 COVID-19 PFIZER VACCINE 2020-12-15 00:00:00 Completed [facility] SARS-COV-2 COVID-19 PFIZER VACCINE 2020-12-15 00:00:00 Completed [facility] SARS-COV-2 COVID-19 PFIZER VACCINE 2020-12-15 00:00:00 Completed [facility] SARS-COV-2 COVID-19 PFIZER VACCINE 2020-12-15 00:00:00 Completed [facility] SARS-COV-2 COVID-19 PFIZER VACCINE 2020-12-15 00:00:00 Completed [facility] SARS-COV-2 COVID-19 PFIZER VACCINE 2020-12-15 00:00:00 Completed [facility] Influenza High Dose 2020-08-24 00:00:00 Completed [facility] Influenza High Dose 2020-08-24 00:00:00 Completed [facility] Influenza High Dose 2020-08-24 00:00:00 Completed [facility] Influenza High Dose 2020-08-24 00:00:00 Completed [facility] Influenza High Dose 2020-08-24 00:00:00 Completed [facility] Influenza High Dose 2020-08-24 00:00:00 Completed [facility] Influenza High Dose 2020-08-24 00:00:00 Completed [facility] Influenza High Dose 2020-08-24 00:00:00 Completed [facility] Influenza High Dose 2020-08-24 00:00:00 Completed [facility] Influenza High Dose 2020-08-24 00:00:00 Completed [facility] Influenza High Dose 2020-08-24 00:00:00 Completed [facility] Influenza High Dose 2020-08-24 00:00:00 Completed [facility] Influenza High Dose 2020-08-24 00:00:00 Completed [facility] Influenza High Dose 2020-08-24 00:00:00 Completed [facility] Influenza High Dose 2020-08-24 00:00:00 Completed [facility] Influenza High Dose 2020-08-24 00:00:00 Completed [facility] Influenza High Dose 2020-08-24 00:00:00 Completed [facility] Influenza High Dose 2020-08-24 00:00:00 Completed [facility] Influenza High Dose 2020-08-24 00:00:00 Completed [facility] Influenza High Dose 2020-08-24 00:00:00 Completed [facility] Influenza High Dose 2020-08-24 00:00:00 Completed [facility] Influenza High Dose 2020-08-24 00:00:00 Completed [facility] Influenza High Dose 2020-08-24 00:00:00 Completed [facility] Influenza High Dose 2020-08-24 00:00:00 Completed [facility] Influenza High Dose 2020-08-24 00:00:00 Completed [facility] Influenza High Dose 2020-08-24 00:00:00 Completed [facility] Influenza High Dose 2020-08-24 00:00:00 Completed [facility] Influenza High Dose 2020-08-24 00:00:00 Completed [facility] Influenza High Dose 2020-08-24 00:00:00 Completed [facility] Influenza High Dose 2020-08-24 00:00:00 Completed [facility] Influenza High Dose 2020-08-24 00:00:00 Completed [facility] Influenza High Dose 2020-08-24 00:00:00 Completed [facility] Influenza High Dose 2020-08-24 00:00:00 Completed [facility] Influenza High Dose 2020-08-24 00:00:00 Completed [facility] Influenza High Dose 2020-08-24 00:00:00 Completed [facility] Influenza High Dose 2020-08-24 00:00:00 Completed [facility] Influenza High Dose 2020-08-24 00:00:00 Completed [facility] Influenza High Dose 2020-08-24 00:00:00 Completed [facility] Influenza High Dose 2020-08-24 00:00:00 Completed [facility] Influenza High Dose 2020-08-24 00:00:00 Completed [facility] Influenza High Dose 2020-08-24 00:00:00 Completed [facility] Influenza High Dose 2020-08-24 00:00:00 Completed [facility] Influenza High Dose 2020-08-24 00:00:00 Completed [facility] Influenza High Dose 2020-08-24 00:00:00 Completed [facility] Influenza High Dose 2020-08-24 00:00:00 Completed [facility] Influenza High Dose 2020-08-24 00:00:00 Completed [facility] Influenza High Dose 2020-08-24 00:00:00 Completed [facility] Influenza High Dose 2020-08-24 00:00:00 Completed [facility] Influenza High Dose 2020-08-24 00:00:00 Completed [facility] Influenza High Dose 2020-08-24 00:00:00 Completed [facility] Influenza High Dose 2020-08-24 00:00:00 Completed [facility] Influenza High Dose 2020-08-24 00:00:00 Completed [facility] Influenza High Dose 2020-08-24 00:00:00 Completed [facility] Influenza High Dose 2020-08-24 00:00:00 Completed [facility] Influenza High Dose 2020-08-24 00:00:00 Completed [facility] Influenza High Dose 2020-08-24 00:00:00 Completed [facility] Influenza High Dose 2020-08-24 00:00:00 Completed [facility] Influenza High Dose 2020-08-24 00:00:00 Completed [facility] Influenza High Dose 2020-08-24 00:00:00 Completed [facility] Influenza High Dose 2020-08-24 00:00:00 Completed [facility] Influenza High Dose 2020-08-24 00:00:00 Completed [facility] Influenza High Dose 2020-08-24 00:00:00 Completed [facility] Influenza High Dose 2020-08-24 00:00:00 Completed [facility] Influenza High Dose 2020-08-24 00:00:00 Completed [facility] Influenza High Dose 2020-08-24 00:00:00 Completed [facility] Influenza High Dose 2020-08-24 00:00:00 Completed [facility] Influenza High Dose 2020-08-24 00:00:00 Completed [facility] Influenza High Dose 2020-08-24 00:00:00 Completed [facility] Influenza High Dose 2020-08-24 00:00:00 Completed [facility] Influenza High Dose 2020-08-24 00:00:00 Completed [facility] Influenza High Dose 2020-08-24 00:00:00 Completed [facility] Influenza High Dose 2020-08-24 00:00:00 Completed [facility] Influenza High Dose 2020-08-24 00:00:00 Completed [facility] Influenza High Dose 2020-08-24 00:00:00 Completed [facility] Influenza High Dose 2020-08-24 00:00:00 Completed [facility] Influenza High Dose 2020-08-24 00:00:00 Completed [facility] Influenza High Dose 2020-08-24 00:00:00 Completed [facility] Influenza, High-Dose, Trivalent, PF (FLUZONE) 2020-08-24 00:00:00 Completed [facility] Influenza High Dose Unknown Completed [facility] SARS-COV-2 COVID-19 PFIZER VACCINE Unknown Completed [facility] SARS-COV-2 COVID-19 PFIZER JILLIAN-SUCROSE VACCINE (VENEGAS TOP) Unknown Completed [facility] Influenza High Dose Unknown Completed [facility] SARS-COV-2 COVID-19 PFIZER VACCINE Unknown Completed [facility] SARS-COV-2 COVID-19 PFIZER JILLIAN-SUCROSE VACCINE (VENEGAS TOP) Unknown Completed [facility] Influenza High Dose Unknown Completed [facility] SARS-COV-2 COVID-19 PFIZER VACCINE Unknown Completed [facility] SARS-COV-2 COVID-19 PFIZER JILLIAN-SUCROSE VACCINE (VENEGAS TOP) Unknown Completed [facility] Influenza Virus Vaccine,quad Im,preserve Free 65+ (FLUAD) Unknown Completed [facility] Pneumococcal 20 Conjugate, PCV20 (Prevnar 20) Unknown Completed [facility] Influenza High Dose Unknown Completed [facility] SARS-COV-2 COVID-19 PFIZER VACCINE Unknown Completed [facility] SARS-COV-2 COVID-19 PFIZER JILLIAN-SUCROSE VACCINE (VENEGAS TOP) Unknown Completed [facility] Influenza Virus Vaccine,quad Im,preserve Free 65+ (FLUAD) Unknown Completed [facility] Pneumococcal 20 Conjugate, PCV20 (Prevnar 20) Unknown Completed [facility] Influenza High Dose Unknown Completed [facility] SARS-COV-2 COVID-19 PFIZER VACCINE Unknown Completed [facility] SARS-COV-2 COVID-19 PFIZER JILLIAN-SUCROSE VACCINE (VENEGAS TOP) Unknown Completed [facility] Influenza Virus Vaccine,quad Im,preserve Free 65+ (FLUAD) Unknown Completed [facility] Pneumococcal 20 Conjugate, PCV20 (Prevnar 20) Unknown Completed [facility] Influenza High Dose Unknown Completed [facility] SARS-COV-2 COVID-19 PFIZER VACCINE Unknown Completed [facility] SARS-COV-2 COVID-19 PFIZER JILLIAN-SUCROSE VACCINE (VENEGAS TOP) Unknown Completed [facility] Influenza Virus Vaccine,quad Im,preserve Free 65+ (FLUAD) Unknown Completed [facility] Pneumococcal 20 Conjugate, PCV20 (Prevnar 20) Unknown Completed [facility] Influenza High Dose Unknown Completed [facility] SARS-COV-2 COVID-19 PFIZER VACCINE Unknown Completed [facility] SARS-COV-2 COVID-19 PFIZER JILLIAN-SUCROSE VACCINE (VENEGAS TOP) Unknown Completed [facility] Influenza Virus Vaccine,quad Im,preserve Free 65+ (FLUAD) Unknown Completed [facility] Pneumococcal 20 Conjugate, PCV20 (Prevnar 20) Unknown Completed [facility] Influenza High Dose Unknown Completed [facility] SARS-COV-2 COVID-19 PFIZER VACCINE Unknown Completed [facility] SARS-COV-2 COVID-19 PFIZER JILLIAN-SUCROSE VACCINE (VENEGAS TOP) Unknown Completed [facility] Influenza Virus Vaccine,quad Im,preserve Free 65+ (FLUAD) Unknown Completed [facility] Pneumococcal 20 Conjugate, PCV20 (Prevnar 20) Unknown Completed [facility] Influenza High Dose Unknown Completed [facility] SARS-COV-2 COVID-19 PFIZER VACCINE Unknown Completed [facility] SARS-COV-2 COVID-19 PFIZER JILLIAN-SUCROSE VACCINE (VENEGAS TOP) Unknown Completed [facility] Influenza Virus Vaccine,quad Im,preserve Free 65+ (FLUAD) Unknown Completed [facility] Pneumococcal 20 Conjugate, PCV20 (Prevnar 20) Unknown Completed [facility] Influenza High Dose Unknown Completed [facility] SARS-COV-2 COVID-19 PFIZER VACCINE Unknown Completed [facility] SARS-COV-2 COVID-19 PFIZER JILLIAN-SUCROSE VACCINE (VENEGAS TOP) Unknown Completed [facility] Influenza Virus Vaccine,quad Im,preserve Free 65+ (FLUAD) Unknown Completed [facility] Pneumococcal 20 Conjugate, PCV20 (Prevnar 20) Unknown Completed [facility] Influenza High Dose Unknown Completed [facility] SARS-COV-2 COVID-19 PFIZER VACCINE Unknown Completed [facility] SARS-COV-2 COVID-19 PFIZER JILLIAN-SUCROSE VACCINE (VENEGAS TOP) Unknown Completed [facility] Influenza Virus Vaccine,quad Im,preserve Free 65+ (FLUAD) Unknown Completed [facility] Pneumococcal 20 Conjugate, PCV20 (Prevnar 20) Unknown Completed [facility] Influenza High Dose Unknown Completed [facility] SARS-COV-2 COVID-19 PFIZER VACCINE Unknown Completed [facility] SARS-COV-2 COVID-19 PFIZER JILLIAN-SUCROSE VACCINE (VENEGAS TOP) Unknown Completed [facility] Influenza Virus Vaccine,quad Im,preserve Free 65+ (FLUAD) Unknown Completed [facility] Pneumococcal 20 Conjugate, PCV20 (Prevnar 20) Unknown Completed [facility] Influenza High Dose Unknown Completed [facility] SARS-COV-2 COVID-19 PFIZER VACCINE Unknown Completed [facility] SARS-COV-2 COVID-19 PFIZER JILLIAN-SUCROSE VACCINE (VENEGAS TOP) Unknown Completed [facility] Influenza Virus Vaccine,quad Im,preserve Free 65+ (FLUAD) Unknown Completed [facility] Pneumococcal 20 Conjugate, PCV20 (Prevnar 20) Unknown Completed [facility] Influenza High Dose Unknown Completed [facility] SARS-COV-2 COVID-19 PFIZER VACCINE Unknown Completed [facility] SARS-COV-2 COVID-19 PFIZER JILLIAN-SUCROSE VACCINE (VENEGAS TOP) Unknown Completed [facility] Influenza Virus Vaccine,quad Im,preserve Free 65+ (FLUAD) Unknown Completed [facility] Pneumococcal 20 Conjugate, PCV20 (Prevnar 20) Unknown Completed [facility] Influenza High Dose Unknown Completed [facility] SARS-COV-2 COVID-19 PFIZER JILLIAN-SUCROSE VACCINE (VENEGAS TOP) Unknown Completed [facility] Influenza Virus Vaccine,quad Im,preserve Free 65+ (FLUAD) Unknown Completed [facility] Pneumococcal 20 Conjugate, PCV20 (Prevnar 20) Unknown Completed [facility] SARS-COV-2 COVID-19 PFIZER VACCINE Unknown Completed [facility] Influenza High Dose Unknown Completed [facility] SARS-COV-2 COVID-19 PFIZER VACCINE Unknown Completed [facility] SARS-COV-2 COVID-19 PFIZER JILLIAN-SUCROSE VACCINE (VENEGAS TOP) Unknown Completed [facility] Influenza Virus Vaccine,quad Im,preserve Free 65+ (FLUAD) Unknown Completed [facility] Pneumococcal 20 Conjugate, PCV20 (Prevnar 20) Unknown Completed [facility] Influenza High Dose Unknown Completed [facility] SARS-COV-2 COVID-19 PFIZER VACCINE Unknown Completed [facility] SARS-COV-2 COVID-19 PFIZER JILLIAN-SUCROSE VACCINE (VENEGAS TOP) Unknown Completed [facility] Influenza Virus Vaccine,quad Im,preserve Free 65+ (FLUAD) Unknown Completed [facility] Pneumococcal 20 Conjugate, PCV20 (Prevnar 20) Unknown Completed [facility] Influenza High Dose Unknown Completed [facility] SARS-COV-2 COVID-19 PFIZER VACCINE Unknown Completed [facility] SARS-COV-2 COVID-19 PFIZER JILLIAN-SUCROSE VACCINE (VENEGAS TOP) Unknown Completed [facility] Influenza Virus Vaccine,quad Im,preserve Free 65+ (FLUAD) Unknown Completed [facility] Pneumococcal 20 Conjugate, PCV20 (Prevnar 20) Unknown Completed [facility] Influenza High Dose Unknown Completed [facility] SARS-COV-2 COVID-19 PFIZER VACCINE Unknown Completed [facility] SARS-COV-2 COVID-19 PFIZER JILLIAN-SUCROSE VACCINE (VENEGAS TOP) Unknown Completed [facility] Influenza Virus Vaccine,quad Im,preserve Free 65+ (FLUAD) Unknown Completed [facility] Pneumococcal 20 Conjugate, PCV20 (Prevnar 20) Unknown Completed [facility] Influenza High Dose Unknown Completed [facility] SARS-COV-2 COVID-19 PFIZER VACCINE Unknown Completed [facility] SARS-COV-2 COVID-19 PFIZER JILLIAN-SUCROSE VACCINE (VENEGAS TOP) Unknown Completed [facility] Influenza Virus Vaccine,quad Im,preserve Free 65+ (FLUAD) Unknown Completed [facility] Pneumococcal 20 Conjugate, PCV20 (Prevnar 20) Unknown Completed [facility] Influenza High Dose Unknown Completed [facility] SARS-COV-2 COVID-19 PFIZER JILLIAN-SUCROSE VACCINE (VENEGAS TOP) Unknown Completed [facility] Influenza Virus Vaccine,quad Im,preserve Free 65+ (FLUAD) Unknown Completed [facility] Pneumococcal 20 Conjugate, PCV20 (Prevnar 20) Unknown Completed [facility] SARS-COV-2 COVID-19 PFIZER VACCINE Unknown Completed [facility] Influenza High Dose Unknown Completed [facility] SARS-COV-2 COVID-19 PFIZER VACCINE Unknown Completed [facility] SARS-COV-2 COVID-19 PFIZER JILLIAN-SUCROSE VACCINE (VENEGAS TOP) Unknown Completed [facility] Influenza Virus Vaccine,quad Im,preserve Free 65+ (FLUAD) Unknown Completed [facility] Pneumococcal 20 Conjugate, PCV20 (Prevnar 20) Unknown Completed [facility] Influenza High Dose Unknown Completed [facility] SARS-COV-2 COVID-19 PFIZER VACCINE Unknown Completed [facility] SARS-COV-2 COVID-19 PFIZER JILLIAN-SUCROSE VACCINE (VENEGAS TOP) Unknown Completed [facility] Influenza Virus Vaccine,quad Im,preserve Free 65+ (FLUAD) Unknown Completed [facility] Pneumococcal 20 Conjugate, PCV20 (Prevnar 20) Unknown Completed [facility] Influenza High Dose Unknown Completed [facility] SARS-COV-2 COVID-19 PFIZER VACCINE Unknown Completed [facility] SARS-COV-2 COVID-19 PFIZER JILLIAN-SUCROSE VACCINE (VENEGAS TOP) Unknown Completed [facility] Influenza Virus Vaccine,quad Im,preserve Free 65+ (FLUAD) Unknown Completed [facility] Pneumococcal 20 Conjugate, PCV20 (Prevnar 20) Unknown Completed [facility] Influenza High Dose Unknown Completed [facility] SARS-COV-2 COVID-19 PFIZER VACCINE Unknown Completed [facility] SARS-COV-2 COVID-19 PFIZER JILLIAN-SUCROSE VACCINE (VENEGAS TOP) Unknown Completed [facility] Influenza Virus Vaccine,quad Im,preserve Free 65+ (FLUAD) Unknown Completed [facility] Pneumococcal 20 Conjugate, PCV20 (Prevnar 20) Unknown Completed [facility] Influenza High Dose Unknown Completed [facility] SARS-COV-2 COVID-19 PFIZER VACCINE Unknown Completed [facility] SARS-COV-2 COVID-19 PFIZER JILLIAN-SUCROSE VACCINE (VENEGAS TOP) Unknown Completed [facility] Influenza Virus Vaccine,quad Im,preserve Free 65+ (FLUAD) Unknown Completed [facility] Pneumococcal 20 Conjugate, PCV20 (Prevnar 20) Unknown Completed [facility] Influenza High Dose Unknown Completed [facility] SARS-COV-2 COVID-19 PFIZER VACCINE Unknown Completed [facility] SARS-COV-2 COVID-19 PFIZER JILLIAN-SUCROSE VACCINE (VENEGAS TOP) Unknown Completed [facility] Influenza Virus Vaccine,quad Im,preserve Free 65+ (FLUAD) Unknown Completed [facility] Pneumococcal 20 Conjugate, PCV20 (Prevnar 20) Unknown Completed [facility] Influenza High Dose Unknown Completed [facility] SARS-COV-2 COVID-19 PFIZER VACCINE Unknown Completed [facility] SARS-COV-2 COVID-19 PFIZER JILLIAN-SUCROSE VACCINE (VENEGAS TOP) Unknown Completed [facility] Influenza Virus Vaccine,quad Im,preserve Free 65+ (FLUAD) Unknown Completed [facility] Pneumococcal 20 Conjugate, PCV20 (Prevnar 20) Unknown Completed [facility] Influenza High Dose Unknown Completed [facility] SARS-COV-2 COVID-19 PFIZER VACCINE Unknown Completed [facility] SARS-COV-2 COVID-19 PFIZER JILLIAN-SUCROSE VACCINE (VENEGAS TOP) Unknown Completed [facility] Influenza Virus Vaccine,quad Im,preserve Free 65+ (FLUAD) Unknown Completed [facility] Pneumococcal 20 Conjugate, PCV20 (Prevnar 20) Unknown Completed [facility] Influenza High Dose Unknown Completed [facility] SARS-COV-2 COVID-19 PFIZER VACCINE Unknown Completed [facility] SARS-COV-2 COVID-19 PFIZER JILLIAN-SUCROSE VACCINE (VENEGAS TOP) Unknown Completed [facility] Influenza Virus Vaccine,quad Im,preserve Free 65+ (FLUAD) Unknown Completed [facility] Pneumococcal 20 Conjugate, PCV20 (Prevnar 20) Unknown Completed [facility] Influenza High Dose Unknown Completed [facility] SARS-COV-2 COVID-19 PFIZER VACCINE Unknown Completed [facility] SARS-COV-2 COVID-19 PFIZER JILLIAN-SUCROSE VACCINE (VENEGAS TOP) Unknown Completed [facility] Influenza Virus Vaccine,quad Im,preserve Free 65+ (FLUAD) Unknown Completed [facility] Pneumococcal 20 Conjugate, PCV20 (Prevnar 20) Unknown Completed [facility] Influenza High Dose Unknown Completed [facility] SARS-COV-2 COVID-19 PFIZER VACCINE Unknown Completed [facility] SARS-COV-2 COVID-19 PFIZER JILLIAN-SUCROSE VACCINE (VENEGAS TOP) Unknown Completed [facility] Influenza Virus Vaccine,quad Im,preserve Free 65+ (FLUAD) Unknown Completed [facility] Pneumococcal 20 Conjugate, PCV20 (Prevnar 20) Unknown Completed [facility] Influenza High Dose Unknown Completed [facility] SARS-COV-2 COVID-19 PFIZER VACCINE Unknown Completed [facility] SARS-COV-2 COVID-19 PFIZER JILLIAN-SUCROSE VACCINE (VENEGAS TOP) Unknown Completed [facility] Influenza Virus Vaccine,quad Im,preserve Free 65+ (FLUAD) Unknown Completed [facility] Pneumococcal 20 Conjugate, PCV20 (Prevnar 20) Unknown Completed [facility] Influenza High Dose Unknown Completed [facility] SARS-COV-2 COVID-19 PFIZER VACCINE Unknown Completed [facility] SARS-COV-2 COVID-19 PFIZER JILLIAN-SUCROSE VACCINE (VENEGAS TOP) Unknown Completed [facility] Influenza Virus Vaccine,quad Im,preserve Free 65+ (FLUAD) Unknown Completed [facility] Pneumococcal 20 Conjugate, PCV20 (Prevnar 20) Unknown Completed [facility] Influenza High Dose Unknown Completed [facility] SARS-COV-2 COVID-19 PFIZER VACCINE Unknown Completed [facility] SARS-COV-2 COVID-19 PFIZER JILLIAN-SUCROSE VACCINE (VENEGAS TOP) Unknown Completed [facility] Influenza Virus Vaccine,quad Im,preserve Free 65+ (FLUAD) Unknown Completed [facility] Pneumococcal 20 Conjugate, PCV20 (Prevnar 20) Unknown Completed [facility] Influenza High Dose Unknown Completed [facility] SARS-COV-2 COVID-19 PFIZER VACCINE Unknown Completed [facility] SARS-COV-2 COVID-19 PFIZER JILLIAN-SUCROSE VACCINE (VENEGAS TOP) Unknown Completed [facility] Influenza Virus Vaccine,quad Im,preserve Free 65+ (FLUAD) Unknown Completed [facility] Pneumococcal 20 Conjugate, PCV20 (Prevnar 20) Unknown Completed [facility] Influenza, High Dose Seasonal (fluzone) Unknown Completed [facility] Influenza, High Dose Seasonal (fluzone) Unknown Completed [facility] Vital Signs Vital Name Observation Time Observation Value Comments S ource Systolic blood pressure 2024-06-28 18:51:00 152 mm[Hg] [facility] Diastolic blood pressure 2024-06-28 18:51:00 77 mm[Hg] [facility] Heart rate 2024-06-28 18:50:00 67 /min [facility] Body height 2024-06-28 18:50:00 162.6 cm [facility] Body weight 2024-06-28 18:50:00 66.225 kg [facility] BMI 2024-06-28 18:50:00 25.06 kg/m2 [facility] Oxygen saturation in Arterial blood by Pulse oximetry 2024-06-28 18:50:00 98 /min [facility] Systolic blood pressure 2024-03-24 18:20:00 121 mm[Hg] [facility] Diastolic blood pressure 2024-03-24 18:20:00 77 mm[Hg] [facility] Heart rate 2024-03-24 18:20:00 79 /min [facility] Body height 2024-03-24 18:20:00 162.6 cm [facility] Body weight 2024-03-24 18:20:00 65.681 kg [facility] BMI 2024-03-24 18:20:00 24.85 kg/m2 [facility] Oxygen saturation in Arterial blood by Pulse oximetry 2024-03-24 18:20:00 99 /min [facility] Systolic blood pressure 2024-02-18 18:35:00 170 mm[Hg] [facility] Diastolic blood pressure 2024-02-18 18:35:00 70 mm[Hg] [facility] Heart rate 2024-02-18 18:34:00 65 /min [facility] Body height 2024-02-18 18:34:00 157.5 cm [facility] Body weight 2024-02-18 18:34:00 68.584 kg [facility] BMI 2024-02-18 18:34:00 27.65 kg/m2 [facility] Oxygen saturation in Arterial blood by Pulse oximetry 2024-02-18 18:34:00 99 /min [facility] Systolic blood pressure 2024-02-11 21:00:00 170 mm[Hg] [facility] Diastolic blood pressure 2024-02-11 21:00:00 66 mm[Hg] [facility] Heart rate 2024-02-11 21:00:00 67 /min [facility] Respiratory rate 2024-02-11 21:00:00 16 /min [facility] Oxygen saturation in Arterial blood by Pulse oximetry 2024-02-11 21:00:00 99 /min [facility] Body temperature 2024-02-11 19:21:00 36.67 [place] [facility] Body weight 2024-02-11 19:21:00 67.132 kg [facility] BMI 2024-02-11 19:21:00 25.40 kg/m2 [facility] Systolic blood pressure 2023-12-17 18:31:00 170 mm[Hg] [facility] Diastolic blood pressure 2023-12-17 18:31:00 79 mm[Hg] [facility] Heart rate 2023-12-17 18:30:00 61 /min [facility] Body height 2023-12-17 18:30:00 162.6 cm [facility] Body weight 2023-12-17 18:30:00 67.359 kg [facility] BMI 2023-12-17 18:30:00 25.49 kg/m2 [facility] Oxygen saturation in Arterial blood by Pulse oximetry 2023-12-17 18:30:00 99 /min [facility] Systolic blood pressure 2023-09-23 18:37:00 150 mm[Hg] [facility] Diastolic blood pressure 2023-09-23 18:37:00 62 mm[Hg] [facility] Heart rate 2023-09-23 18:37:00 62 /min [facility] Body height 2023-09-23 18:37:00 162.6 cm [facility] Body weight 2023-09-23 18:37:00 58.06 kg [facility] BMI 2023-09-23 18:37:00 21.97 kg/m2 [facility] Systolic blood pressure 2023-08-28 20:02:00 148 mm[Hg] [facility] Diastolic blood pressure 2023-08-28 20:02:00 63 mm[Hg] [facility] Heart rate 2023-08-28 20:01:00 59 /min [facility] Respiratory rate 2023-08-28 20:01:00 18 /min [facility] Body height 2023-08-28 20:01:00 162.6 cm [facility] Body weight 2023-08-28 20:01:00 54.432 kg [facility] BMI 2023-08-28 20:01:00 20.60 kg/m2 [facility] Oxygen saturation in Arterial blood by Pulse oximetry 2023-08-28 20:01:00 99 /min [facility] Systolic blood pressure 2023-08-12 18:46:00 182 mm[Hg] [facility] Diastolic blood pressure 2023-08-12 18:46:00 80 mm[Hg] [facility] Heart rate 2023-08-12 18:46:00 85 /min [facility] Body temperature 2023-08-12 18:46:00 36.72 [place] [facility] Respiratory rate 2023-08-12 18:46:00 18 /min [facility] Oxygen saturation in Arterial blood by Pulse oximetry 2023-08-12 18:46:00 100 /min [facility] Systolic blood pressure 2023-06-11 13:57:00 177 mm[Hg] [facility] Diastolic blood pressure 2023-06-11 13:57:00 65 mm[Hg] [facility] Heart rate 2023-06-11 13:56:00 59 /min [facility] Respiratory rate 2023-06-11 13:56:00 18 /min [facility] Body height 2023-06-11 13:56:00 162.6 cm [facility] Body weight 2023-06-11 13:56:00 58.922 kg [facility] BMI 2023-06-11 13:56:00 22.30 kg/m2 [facility] Oxygen saturation in Arterial blood by Pulse oximetry 2023-06-11 13:56:00 99 /min [facility] Systolic blood pressure 2023-03-05 18:11:00 182 mm[Hg] [facility] Diastolic blood pressure 2023-03-05 18:11:00 73 mm[Hg] [facility] Heart rate 2023-03-05 18:11:00 62 /min [facility] Body height 2023-03-05 17:59:00 163.8 cm [facility] Body weight 2023-03-05 17:59:00 62.687 kg [facility] BMI 2023-03-05 17:59:00 23.36 kg/m2 [facility] Oxygen saturation in Arterial blood by Pulse oximetry 2023-03-05 17:59:00 99 /min [facility] Systolic blood pressure 2023-01-08 14:51:00 160 mm[Hg] [facility] Diastolic blood pressure 2023-01-08 14:51:00 81 mm[Hg] [facility] Body height 2023-01-08 14:50:00 162.6 cm [facility] Body weight 2023-01-08 14:50:00 64.093 kg [facility] BMI 2023-01-08 14:50:00 24.25 kg/m2 [facility] Oxygen saturation in Arterial blood by Pulse oximetry 2023-01-08 14:50:00 100 /min [facility] Heart rate 2023-01-08 14:50:00 78 /min [facility] Systolic blood pressure 2022-12-03 18:12:00 102 mm[Hg] [facility] Diastolic blood pressure 2022-12-03 18:12:00 54 mm[Hg] [facility] Heart rate 2022-12-03 18:12:00 77 /min [facility] Body temperature 2022-12-03 18:12:00 35.83 [place] [facility] Oxygen saturation in Arterial blood by Pulse oximetry 2022-12-03 18:12:00 99 /min [facility] Respiratory rate 2022-12-03 14:25:00 16 /min [facility] Body weight 2022-12-02 09:44:00 60.464 kg [facility] BMI 2022-12-02 09:44:00 22.88 kg/m2 [facility] Body height 2022-11-28 21:32:00 162.6 cm [facility] Systolic blood pressure 2022-11-28 17:14:00 64 mm[Hg] [facility] Diastolic blood pressure 2022-11-28 17:14:00 39 mm[Hg] [facility] Heart rate 2022-11-28 17:14:00 87 /min [facility] Body height 2022-11-28 17:12:00 162.6 cm [facility] Body weight 2022-11-28 17:12:00 54.885 kg [facility] BMI 2022-11-28 17:12:00 20.77 kg/m2 [facility] Oxygen saturation in Arterial blood by Pulse oximetry 2022-11-28 17:12:00 98 /min [facility] Systolic blood pressure 2022-11-03 13:49:00 128 mm[Hg] [facility] Diastolic blood pressure 2022-11-03 13:49:00 69 mm[Hg] [facility] Heart rate 2022-11-03 13:49:00 80 /min [facility] Body temperature 2022-11-03 13:49:00 36.11 [place] [facility] Respiratory rate 2022-11-03 13:49:00 18 /min [facility] Oxygen saturation in Arterial blood by Pulse oximetry 2022-11-03 13:49:00 97 /min [facility] Body weight 2022-11-03 09:51:00 72.984 kg [facility] BMI 2022-11-03 09:51:00 27.62 kg/m2 [facility] Body height 2022-10-31 22:07:00 162.6 cm [facility] Systolic blood pressure 2022-10-30 15:01:00 171 mm[Hg] [facility] Diastolic blood pressure 2022-10-30 15:01:00 83 mm[Hg] [facility] Heart rate 2022-10-30 15:00:00 96 /min [facility] Body temperature 2022-10-30 15:00:00 37.22 [place] [facility] Body height 2022-10-30 15:00:00 162.6 cm [facility] Body weight 2022-10-30 15:00:00 68.539 kg [facility] BMI 2022-10-30 15:00:00 25.94 kg/m2 [facility] Oxygen saturation in Arterial blood by Pulse oximetry 2022-10-30 15:00:00 94 /min [facility] Heart rate 2022-07-17 16:15:00 65 /min [facility] Respiratory rate 2022-07-17 16:15:00 18 /min [facility] Oxygen saturation in Arterial blood by Pulse oximetry 2022-07-17 16:15:00 99 /min [facility] Systolic blood pressure 2022-07-17 16:10:00 196 mm[Hg] [facility] Diastolic blood pressure 2022-07-17 16:10:00 63 mm[Hg] [facility] Body temperature 2022-07-17 15:55:00 36.5 [place] [facility] Body height 2022-07-17 14:21:00 162.6 cm [facility] Body weight 2022-07-17 14:21:00 66.1 kg [facility] BMI 2022-07-17 14:21:00 25.01 kg/m2 [facility] Respiratory rate 2022-07-17 15:52:00 18 /min [facility] Body height 2022-07-17 14:21:00 162.6 cm [facility] Body weight 2022-07-17 14:21:00 66.1 kg [facility] BMI 2022-07-17 14:21:00 25.01 kg/m2 [facility] Systolic blood pressure 2022-07-17 14:00:00 181 mm[Hg] [facility] Diastolic blood pressure 2022-07-17 14:00:00 71 mm[Hg] [facility] Heart rate 2022-07-17 14:00:00 71 /min [facility] Body temperature 2022-07-17 13:53:00 37.06 [place] [facility] Respiratory rate 2022-07-17 13:53:00 18 /min [facility] Oxygen saturation in Arterial blood by Pulse oximetry 2022-07-17 13:53:00 99 /min [facility] Systolic blood pressure 2022-04-17 19:19:00 160 mm[Hg] Pt denies any chest pain [facility] Diastolic blood pressure 2022-04-17 19:19:00 75 mm[Hg] Pt denies any chest pain [facility] Heart rate 2022-04-17 19:03:00 64 /min [facility] Body temperature 2022-04-17 19:03:00 36.06 [place] [facility] Respiratory rate 2022-04-17 19:03:00 18 /min [facility] Body height 2022-04-17 19:03:00 162.6 cm [facility] Body weight 2022-04-17 19:03:00 66.134 kg [facility] BMI 2022-04-17 19:03:00 25.03 kg/m2 [facility] Oxygen saturation in Arterial blood by Pulse oximetry 2022-04-17 19:03:00 99 /min [facility] Procedures Procedure Date / Time Performed Performing Clinician Source CBC WITH DIFF 2024-06-28 20:06:00 Isaias Henson [facility] LACTIC ACID WHOLE BLOOD 2024-02-11 19:43:00 Freya Ibrahim [facility] LIPASE 2024-02-11 19:42:00 Freya Ibrahim [facility] TROPONIN I 2024-02-11 19:42:00 Freya Ibrahim [facility] COMP. METABOLIC PANEL (52088) 2024-02-11 19:42:00 Freya Ibrahim [facility] CBC WITH DIFF 2024-02-11 19:42:00 Freya Ibrahim [facility] CONSENT/REFUSAL FOR DIAGNOSI S AND TREATMENT 2024-02-11 19:15:17 Doctor Unassigned, [place] [facility] 2023-12-26 06:01:00 Doctor Unassigned, [place] [facility] 2023-11-03 06:01:00 Doctor Unassigned, [place] [facility] ECG 12-LEAD 2023-09-23 19:05:27 [facility](),65+YR,0. 5 ML,IM,ADJUVANTED,QUAD(FLUAD) 2023-08-28 20:08:45 Isaias Henson [facility] PNEUMOCOCCAL 20 CONJUGATE (PREVNAR 20) VACCINE 2023-08-28 20:08:45 Isaias Henson [facility] MEDICAL RELEASE/CLEARANCE FORMS 2023-08-28 05:01:00 Doctor Unassigned, [place] [facility] INSURANCE CORRESPONDENCE 2023-08-08 05:01:00 Doctor Unassigned, [place] [facility] 2023-07-06 05:01:00 Doctor Unassigned, [place] [facility] PATIENT QUESTIONNAIRE 2023-06-23 05:01:00 Doctor Unassigned, [place] [facility] ASSIGNMENT OF BENEFITS 2023-06-11 13:42:01 Doctor Unassigned, [place] [facility] 2023-05-29 05:01:00 Doctor Unassigned, [place] [facility] 2023-05-09 05:01:00 Doctor Unassigned, [place] [facility] 2023-04-25 05:01:00 Doctor Unassigned, [place] [facility] - OTHER 2023-04-02 05:01:00 Doctor Unassigned, [place] [facility] PATIENT FINANCIAL POLICY 2023-03-05 17:51:50 Doctor Unassigned, [place] [facility] - OTHER 2023-02-09 05:01:00 Doctor Unassigned, [place] [facility] - OTHER 2023-01-06 06:01:00 Doctor Unassigned, [place] [facility] EXTERNAL PROVIDER RECORDS 2022-12-26 06:01:00 Doctor Unassigned, [place] [facility] - OTHER 2022-12-20 06:01:00 Doctor Unassigned, [place] [facility] OTHER 2022-12-10 06:01:00 Doctor Unassigned, [place] [facility] POCT GLUCOSE (AUTOMATED) 2022-12-03 18:13:00 [facility] POCT GLUCOSE (AUTOMATED) 2022-12-03 14:26:00 Tish Bennett [facility] MAGNESIUM 2022-12-03 11:57:00 Yury Hart [facility] BASIC METABOLIC PANEL (NA, K , CL, CO2, GLUCOSE, BUN, CREATININE, CA) 2022-12-03 11:57:00 Yury Hart [facility] CBC WITH DIFF 2022-12-03 11:57:00 Yury Hart [facility] POCT GLUCOSE (AUTOMATED) 2022-12-03 02:18:00 Tish Bennett [facility] POCT GLUCOSE (AUTOMATED) 2022-12-02 23:11:00 Tish Bennett [facility] POCT GLUCOSE (AUTOMATED) 2022-12-02 17:47:00 [facility] POCT GLUCOSE (AUTOMATED) 2022-12-02 14:00:00 [facility] BASIC METABOLIC PANEL (NA, K , CL, CO2, GLUCOSE, BUN, CREATININE, CA) 2022-12-02 10:32:00 Jerrica Carranza [facility] EXTERNAL PROVIDER RECORDS 2022-12-02 06:01:00 Doctor Unassigned, [place] [facility] POCT GLUCOSE (AUTOMATED) 2022-12-02 02:45:00 Tish Bennett [facility] POCT GLUCOSE (AUTOMATED) 2022-12-01 22:27:00 [facility] POCT GLUCOSE (AUTOMATED) 2022-12-01 17:32:00 [facility] POCT GLUCOSE (AUTOMATED) 2022-12-01 13:52:00 [facility] BASIC METABOLIC PANEL (NA, K , CL, CO2, GLUCOSE, BUN, CREATININE, CA) 2022-12-01 10:21:00 Jerrica Carranza [facility] CBC WITH DIFF 2022-12-01 10:21:00 Jerrica Carranza Ilda [facility] POCT GLUCOSE (AUTOMATED) 2022-12-01 03:11:00 [facility] POCT GLUCOSE (AUTOMATED) 2022-11-30 23:53:00 [facility] POCT GLUCOSE (AUTOMATED) 2022-11-30 23:30:00 [facility] POCT GLUCOSE (AUTOMATED) 2022-11-30 23:17:00 [facility] POCT GLUCOSE (AUTOMATED) 2022-11-30 23:05:00 [facility] POCT GLUCOSE (AUTOMATED) 2022-11-30 17:29:00 [facility] POCT GLUCOSE (AUTOMATED) 2022-11-30 13:51:00 [facility] CORTISOL AM 2022-11-30 10:28:00 Giana Thompson [facility] BASIC METABOLIC PANEL (NA, K , CL, CO2, GLUCOSE, BUN, CREATININE, CA) 2022-11-30 10:28:00 Jerrica Carranza [facility] CBC WITH DIFF 2022-11-30 10:28:00 Jerrica Carranza [facility] POCT GLUCOSE (AUTOMATED) 2022-11-30 02:44:00 [facility] URINALYSIS 2022-11-30 00:36:00 Giana Thompson [facility] URINE CULTURE 2022-11-30 00:36:00 Tish Bennett [facility] POCT GLUCOSE (AUTOMATED) 2022-11-29 22:35:00 Tish Bennett [facility] POCT GLUCOSE (AUTOMATED) 2022-11-29 18:15:00 [facility] POCT GLUCOSE (AUTOMATED) 2022-11-29 13:42:00 [facility] OCCULT (GUAIAC) BLOOD 2022-11-29 09:58:00 Donna [facility] FECES CULTURE 2022-11-29 09:57:00 Donna [facility] CLOSTRIDIUM DIFFICILE TOXIN 2022-11-29 09:57:00 Donna [facility] MAGNESIUM 2022-11-29 09:56:00 Yury Hart [facility] BASIC METABOLIC PANEL (NA, K , CL, CO2, GLUCOSE, BUN, CREATININE, CA) 2022-11-29 09:56:00 Yury Hart [facility] LIPID PANEL (60747)(TOTAL CHOLESTEROL, TRIGLYCERIDES, HDL) 2022-11-29 09:56:00 Yury Hart [facility] CBC WITH DIFF 2022-11-29 09:56:00 Yury Hart [facility] EXTERNAL PROVIDER RECORDS 2022-11-29 06:01:00 Doctor Unassigned, [place] [facility] POCT GLUCOSE (AUTOMATED) 2022-11-29 02:04:00 [facility] BLOOD CULTURE SCREEN 2022-11-28 21:54:00 [facility] BLOOD CULTURE SCREEN 2022-11-28 21:53:00 [facility] THYROID STIMULATING HORMONE 2022-11-28 21:28:00 [facility] XR CHEST 1 VW 2022-11-28 18:17:13 Singer [facility] LACTIC ACID WHOLE BLOOD 2022-11-28 18:12:00 Eddie Win [facility] TROPONIN I 2022-11-28 18:04:00 Singer Eddie [facility] COMP. METABOLIC PANEL ([id number]) 2022-11-28 18:04:00 Eddie Win [facility] CBC WITH DIFF 2022-11-28 18:04:00 Eddie Win [facility] HB ECG ROUTINE & RHYTHM STRIP 2022-11-28 17:55:44 Eddie Win [facility] CONSENT/REFUSAL FOR DIAGNOSI S AND TREATMENT 2022-11-28 17:37:46 Doctor Unassigned, [place] [facility] - OTHER 2022-11-20 06:01:00 Doctor Unassigned, [place] [facility] - OTHER 2022-11-11 06:01:00 Doctor Unassigned, [place] [facility] - OTHER 2022-11-08 06:01:00 Doctor Unassigned, [place] [facility] 485 2022-11-05 06:01:00 Doctor Unassigned, [place] [facility] POCT GLUCOSE (AUTOMATED) 2022-11-03 13:50:00 Chris Tillman [facility] BASIC METABOLIC PANEL (NA, K , CL, CO2, GLUCOSE, BUN, CREATININE, CA) 2022-11-03 10:35:00 Jerrica Carranza [facility] CBC WITH DIFF 2022-11-03 10:35:00 Jerrica Carranza [facility] POCT GLUCOSE (AUTOMATED) 2022-11-02 22:42:00 Chris Tillman [facility] POCT GLUCOSE (AUTOMATED) 2022-11-02 17:50:00 Chris Tillman [facility] POCT GLUCOSE (AUTOMATED) 2022-11-02 14:14:00 Chris Tillman [facility] BASIC METABOLIC PANEL (NA, K , CL, CO2, GLUCOSE, BUN, CREATININE, CA) 2022-11-02 09:47:00 Jerrica Carranza [facility] CBC WITH DIFF 2022-11-02 09:47:00 Jerrica Carranza [facility] POCT GLUCOSE (AUTOMATED) 2022-11-01 22:47:00 Chris Tillman [facility] POCT GLUCOSE (AUTOMATED) 2022-11-01 17:54:00 Chris Tillman [facility] POCT GLUCOSE (AUTOMATED) 2022-11-01 13:58:00 Chris Tillman [facility] MAGNESIUM 2022-11-01 10:50[facility] (NA, K , CL, CO2, GLUCOSE, BUN, CREATININE, CA) 2022-11-01 10:50:00 Jerrica Carranza [facility] CBC WITH DIFF 2022-11-01 10:50:00 Jerrica Carranza [facility] VITAMIN B12, LEVEL 2022-11-01 03:08[facility]00 [facility]22-11-01 03:08:00 Nicolás [facility] MAGNESIUM 2022-11-01 02:34:00 Nioclás [facility] FERRITIN SERUM 2022-11-01 02:34:00 Nicolás [facility] IRON 2022-11-01 02:34:00 Nicolás [facility] TOTAL IRON BINDING CAPACITY 2022-11-01 02:34:00 Nicolás [facility] BASIC METABOLIC PANEL (NA, K , CL, CO2, GLUCOSE, BUN, CREATININE, CA) 2022-11-01 02:34:00 Nicolás [facility] CT ABDOMEN PELVIS WO CONTRAST 2022-10-31 18:20:19 Chris Tillman [facility] URINALYSIS 2022-10-31 16:47:00 Chris Tillman [facility] URINE CULTURE 2022-10-31 16:47:00 Chris Tillman [facility] MAGNESIUM 2022-10-31 16:24:00 Nicolás Parth [facility] COMP. METABOLIC PANEL ([id number]) 2022-10-31 16:24:00 Chris Tillman [facility] LIPID PANEL (55340)(TOTAL CHOLESTEROL, TRIGLYCERIDES, HDL) 2022-10-31 16:24:00 Jerrica Carranza [facility] CBC WITH DIFF 2022-10-31 16:24:00 Chris Tillman [facility] GLYCOSYLATED HEMOGLOBIN (A1C) 2022-10-31 16:24:00 Jerrica Carranza [facility] EKG-12 LEAD 2022-10-31 16:03:18 Chris Tillman [facility] CONSENT/REFUSAL FOR DIAGNOSI S AND TREATMENT 2022-10-31 15:55:25 Doctor Unassigned, [place] [facility] PHACOEMULSIFICATION OF CATARACT WITH INTRAOCULAR LENS IMPLANT 2022-07-17 15:16:00 Vince Vasquez [facility] POCT GLUCOSE (AUTOMATED) 2022-07-17 13:59:00 Vince Vasquez [facility] POCT GLUCOSE (AUTOMATED) 2022-07-17 13:59:00 Vince Vasquez [facility] ASSIGNMENT OF BENEFITS 2022-07-15 17:44:10 Doctor Unassigned, [place] [facility] URINALYSIS 2022-04-17 20:40:00 Queenie Arredondo [facility] POCT URINALYSIS AUTO 2022-04-17 00:00:00 Queenie Arredondo [facility] Encounters Start Date/Time End Date/Time Encounter Type Admission Type Attending Clinicians Care Facility Care Department Encounter ID Source 2023-06-27 10:02:17 Outpatient [facility] [id number] [facility] 2023-06-05 12:07:18 Outpatient [facility] [id number] [facility] 2023-05-26 08:22:48 Outpatient [facility] [id number] [facility] 2023-05-25 13:32:18 Outpatient [facility] [id number] [facility] 2021-09-24 17:46:08 Outpatient VINCE METZGER [facility] OPH [id number] [facility] 2021-09-21 14:52:11 Emergency [facility] [id number] [facility] 2024-08-21 00:00:00 2024-08-23 11:26:34 Isaias [facility] 1.2.840.114 350.1.13.10 4.2.7.2.686 [id number] 044 [id number] [facility] 2024-07-27 00:00:00 2024-07-28 06:26:08 Refill Isaias Henson [facility] 1.0.114 350.1.13.10 4.2.7.2.686 [id number] 044 [id number] [facility] 2024-07-01 00:00:00 2024-07-01 16:11:24 Letter (Out) [facility] [place] 1.0.114 350.1.13.10 4.2.7.2.686 [id number] [facility] 2024-06-29 00:00:00 2024-06-29 16:01:14 Patient Outreach Shereen Weiss Laura L [facility] 1..114 350.1.13.10 4.2.7.2.686 [id number] [facility] 2024-06-28 15:00:00 2024-06-28 15:15:00 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 Lab, Isaias Wasserman Lab, [place] - James [facility] 1.84.114 350.1.13.10 4.2.7.2.686 [id number] [facility] 2024-06-28 14:00:00 2024-06-28 14:49:07 Outpatient R ISAIAS HENSON [facility] [id number] [facility] 2024-06-28 14:00:00 2024-06-28 14:49:07 Office Visit Isaias Henson [facility] 1..114 350.1.13.10 4.2.7.2.686 [id number] 044 [id number] [facility] 2024-06-28 00:00:00 2024-06-28 13:07:01 Refill Isaias Henson [facility] 1.2.840.114 350.1.13.10 4.2.7.2.686 [id number] 044 [id number] [facility] 2024-06-22 09:45:00 2024-06-22 09:45:00 Outpatient Chris ISAIAS HENSON [facility] [id number] [facility] 2024-06-17 14:15:00 2024-06-17 14:15:00 Outpatient R ISAIAS HENSON [facility] [id number] [facility] 2024-06-16 12:00:00 2024-06-16 12:00:00 Outpatient Chris ISAIAS HENSON [facility] [id number] [facility] 2024-05-24 00:00:00 2024-05-25 06:29:30 [facility] 1.2.840.114 350.1.13.10 4.2.7.2.686 [id number] 044 [id number] [facility] 2024-05-20 00:00:00 2024-05-24 06:27:30 [facility] 1.2.840.114 350.1.13.10 4.2.7.2.686 [id number] 044 [id number] [facility] 2024-05-09 00:00:00 2024-05-10 08:02:14 Refill Isaias Henson [facility] 1.2.840.114 350.1.13.10 4.2.7.2.686 [id number] 044 [id number] [facility] 2024-04-28 00:00:00 2024-04-28 10:50:52 Telephone [facility] 1.2840.114 350.1.13.10 4.2.7.2.686 [id number] 044 [id number] [facility] 2024-04-16 00:00:00 2024-04-16 07:13:01 Refill Sixto [facility] RUBY MEJIA?[facility] 1.2.840.114 350.1.13.10 4.2.7.2.686 [id number] 044 [id number] [facility] 2024-03-24 13:15:00 2024-03-24 13:30:00 Office Visit [facility]xto [facility] 1.2840.114 350.1.13.10 4.2.7.2.686 [id number] [id number] [facility] 2024-03-24 13:15:00 2024-03-24 13:15:00 Outpatient R ISAIAS HENSON [facility] [id number] [facility] 2024-03-23 00:00:00 2024-03-23 00:00:00 Telephone [facility]xto [facility] 1.2840.114 350.1.13.10 4.2.7.2.686 [id number] 044 [id number] [facility] 2024-03-19 00:00:00 2024-03-19 00:00:00 Refill [facility]xto [facility] 1.2840.114 350.1.13.10 4.2.7.2.686 [id number] 044 [id number] [facility] 2024-02-19 00:00:00 2024-02-19 00:00:00 Refill Sixto [facility] RUBY MEJIA?[facility] 1.2840.114 350.1.13.10 4.2.7.2.686 [id number] 044 [id number] [facility] 2024-02-18 13:30:00 2024-02-18 13:45:00 Office Visit Sixto [facility] 1..840.114 350.1.13.10 4.2.7.2.686 [id number] 044 [id number] [facility] 2024-02-18 13:30:00 2024-02-18 13:30:00 Outpatient R ISAIAS HENSON [facility] [id number] [facility] 2024-02-12 00:00:00 2024-02-12 00:00:00 Telephone Miriam Jain 1..840.114 350.1.13.10 4.2.7.2.686 [id number] [facility] 2024-02-11 14:24:00 2024-02-11 16:59:00 Emergency X FREYA IBRAHIM [facility] ERT [id number] [facility] 2024-02-11 14:24:00 2024-02-11 16:59:00 Emergency Freya Ibrahim [facility] 1..840.114 350.1.13.10 4.2.7.2.686 [id number] [id number] [facility] 2024-02-11 13:45:00 2024-02-11 13:45:00 Outpatient R ISAIAS HENSON [facility] [id number] [facility] 2024-02-11 00:00:00 2024-02-11 00:00:00 Telephone [facility] 1..840.114 350.1.13.10 4.2.7.2.686 [id number] 044 [id number] [facility] 2024-02-04 00:00:00 2024-02-04 00:00:00 Telephone Isaias Henson [facility] RAF?[facility] 1.840.114 350.1.13.10 4.2.7.2.686 [id number] 044 [id number] [facility] 2023-12-26 00:00:00 2023-12-26 00:00:00 Orders Only Doctor Unassigned, [place] [facility] 1.2840.114 350.1.13.10 4.2.7.2.686 [id number] [id number] [facility] 2023-12-17 12:45:00 2023-12-17 13:00:00 Office Visit Isaias Henson [facility] RAF?[facility] 1.840.114 350.1.13.10 4.2.7.2.686 [id number] 044 [id number] [facility] 2023-12-17 12:45:00 2023-12-17 12:45:00 Outpatient R ISAIAS HENSON [facility] [id number] [facility] 2023-12-10 12:00:00 2023-12-10 12:00:00 Outpatient R ISAIAS HENSON [facility] [id number] [facility] 2023-12-04 00:00:00 2023-12-04 00:00:00 Refill Sixto [facility] 1.840.114 350.1.13.10 4.2.7.2.686 [id number] 044 [id number] [facility] 2023-11-13 00:00:00 2023-11-13 00:00:00 Refill Sixto [facility] 1.2840.114 350.1.13.10 4.2.7.2.686 [id number] 044 [id number] [facility] 2023-11-12 00:00:00 2023-11-12 00:00:00 Laney [facility]enson [facility] 1.84.114 350.1.13.10 4.2.7.2.686 [id number] 044 [id number] [facility] 2023-11-03 00:00:00 2023-11-03 00:00:00 Orders Only Doctor Unassigned, [place] [facility] 1..114 350.1.13.10 4.2.7.2.686 [id number] [id number] [facility] 2023-10-22 11:30:00 2023-10-22 11:44:29 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 Lab, [place] Henson [facility] 1.114 350.1.13.10 4.2.7.2.686 [id number] [facility] 2023-10-22 11:30:00 2023-10-22 11:44:29 Outpatient Chris CANTUHENSON ISAIAS [facility] [id number] [facility] 2023-10-21 00:00:00 2023-10-21 00:00:00 Laney Henson [facility] 1.114 350.1.13.10 4.2.7.2.686 [id number] 044 [id number] [facility] 2023-09-23 14:15:00 2023-09-23 14:54:45 Office Visit Estuardo Quezada [facility] [address] 1..114 350.1.13.58 9.2.7.2.686 [id number] [facility] 2023-09-23 00:00:00 2023-09-23 00:00:00 Outpatient GC_[id number] diyala_S [facility] [id number] [facility] 2023-09-21 00:00:00 2023-09-21 00:00:00 Refill Isaias Henson [facility] 1.2840.114 350.1.13.10 4.2.7.2.686 [id number] 044 [id number] [facility] 2023-09-11 00:00:00 2023-09-11 00:00:00 Refill Isaias Henson [facility] 1.2840.114 350.1.13.10 4.2.7.2.686 [id number] 044 [id number] [facility] 2023-09-09 00:00:00 2023-09-09 00:00:00 Telephone Isaias eHnson [facility] 1.2840.114 350.1.13.10 4.2.7.2.686 [id number] 044 [id number] [facility] 2023-09-05 00:00:00 2023-09-05 00:00:00 Telephone [facility] 1.2840.114 350.1.13.10 4.2.7.2.686 [id number] 044 [id number] [facility] 2023-09-04 13:30:00 2023-09-04 13:30:00 Outpatient R ISAIAS HENSON [facility] [id number] [facility] 2023-08-28 14:45:00 2023-08-28 15:22:39 Outpatient R ISAIAS HENSON [facility] [id number] [facility] 2023-08-28 14:45:00 2023-08-28 15:22:39 Office Visit Isaias Henson [facility] 1.2840.114 350.1.13.10 4.2.7.2.686 [id number] 044 [id number] [facility] 2023-08-28 00:00:00 2023-08-28 00:00:00 Orders Only Doctor Unassigned, [place] [facility] 1.2.840.114 350.1.13.10 4.2.7.2.686 [id number] [id number] [facility] 2023-08-13 00:00:00 2023-08-13 00:00:00 [facility] 1.2840.114 350.1.13.10 4.2.7.2.686 [id number] 044 [id number] [facility] 2023-08-12 14:00:00 2023-08-12 15:57:43 Office Visit Mayda Jones [facility] 1.2840.114 350.1.13.58 9.2.7.2.686 [id number] [facility] 2023-08-12 00:00:00 2023-08-12 00:00:00 Telephone Sixto [facility] 1.2840.114 350.1.13.10 4.2.7.2.686 [id number] 044 [id number] [facility] 2023-08-08 00:00:00 2023-08-08 00:00:00 Orders Only Doctor Unassigned, [place] [facility] 1.2840.114 350.1.13.10 4.2.7.2.686 [id number] [id number] [facility] 2023-08-07 00:00:00 2023-08-07 00:00:00 Refill Sixto Critical access hospital?[facility] 1.2840.114 350.1.13.10 4.2.7.2.686 [id number] 044 [id number] [facility] 2023-08-06 00:00:00 2023-08-06 00:00:00 Refill Sixto [facility] 1.2.840.114 350.1.13.10 4.2.7.2.686 [id number] 044 [id number] [facility] 2023-07-08 00:00:00 2023-07-08 00:00:00 Telephone Isaias Henson [facility] 1.2.840.114 350.1.13.10 4.2.7.2.686 [id number] 044 [id number] [facility] 2023-07-07 00:00:00 2023-07-07 00:00:00 Refill Sixto [facility] 1.2840.114 350.1.13.10 4.2.7.2.686 [id number] 044 [id number] [facility] 2023-07-06 00:00:00 2023-07-06 00:00:00 Orders Only Doctor Unassigned, [place] [facility] 1.2.840.114 350.1.13.10 4.2.7.2.686 [id number] [id number] [facility] 2023-06-23 00:00:00 2023-06-23 00:00:00 Orders Only Doctor Unassigned, [place] [facility] 1.2.840.114 350.1.13.10 4.2.7.2.686 [id number] 009 [id number] [facility] 2023-06-16 00:00:00 2023-06-16 00:00:00 Telephone Sixto [facility] 1.2.840.114 350.1.13.10 4.2.7.2.686 [id number] 044 [id number] [facility] 2023-06-11 09:00:00 2023-06-11 09:10:26 Outpatient R ISAIAS HENSON [facility] [id number] [facility] 2023-06-11 09:00:00 2023-06-11 09:10:26 Office Visit Isaias Henson [facility] 1.2840.114 350.1.13.10 4.2.7.2.686 [id number] 044 [id number] [facility] 2023-06-11 00:00:00 2023-06-11 00:00:00 Orders Only Doctor Unassigned, [place] [facility] 1.2840.114 350.1.13.10 4.2.7.2.686 [id number] 009 [id number] [facility] 2023-05-29 00:00:00 2023-05-29 00:00:00 Orders Only Doctor Unassigned, [place] [facility] 1.2840.114 350.1.13.10 4.2.7.2.686 [id number] [id number] [facility] 2023-05-21 00:00:00 2023-05-21 00:00:00 Refill Sixto [facility] 1.840.114 350.1.13.10 4.2.7.2.686 [id number] 044 [id number] [facility] 2023-05-09 00:00:00 2023-05-09 00:00:00 Orders Only Doctor Unassigned, [place] [facility] 1.2840.114 350.1.13.10 4.2.7.2.686 [id number] 009 [id number] [facility] 2023-04-25 00:00:00 2023-04-25 00:00:00 Refill Sixto [facility] 1.2840.114 350.1.13.10 4.2.7.2.686 [id number] 044 [id number] [facility] 2023-04-25 00:00:00 2023-04-25 00:00:00 Orders Only Doctor Unassigned, [place] [facility] 1.2.840.114 350.1.13.10 4.2.7.2.686 [id number] 009 [id number] [facility] 2023-04-15 00:00:00 2023-04-15 00:00:00 Refill Sixto [facility] 1.2840.114 350.1.13.10 4.2.7.2.686 [id number] 044 [id number] [facility] 2023-04-02 00:00:00 2023-04-02 00:00:00 Orders Only Doctor Unassigned, [place] [facility] 1.2840.114 350.1.13.10 4.2.7.2.686 [id number] 009 [id number] [facility] 2023-03-19 00:00:00 2023-03-19 00:00:00 Refill Sixto [facility] 1.2840.114 350.1.13.10 4.2.7.2.686 [id number] 044 [id number] [facility] 2023-03-13 00:00:00 2023-03-13 00:00:00 Refill Sixto [facility] 1.2840.114 350.1.13.10 4.2.7.2.686 [id number] 044 [id number] [facility] 2023-03-11 00:00:00 2023-03-11 00:00:00 Refill Sixto [facility] 1.2840.114 350.1.13.10 4.2.7.2.686 [id number] 044 [id number] [facility] 2023-03-09 00:00:00 2023-03-09 00:00:00 Telephone Isaias Henson [facility] 1.2840.114 350.1.13.10 4.2.7.2.686 [id number] 044 [id number] [facility] 2023-03-05 13:30:00 2023-03-05 13:45:00 Office Visit Isaias Henson [facility] 1.2840.114 350.1.13.10 4.2.7.2.686 [id number] 044 [id number] [facility] 2023-03-05 13:30:00 2023-03-05 13:30:00 [id number] 2023-03-05 00:00:00 2023-03-05 00:00:00 Orders Only Doctor Unassigned, [place] [facility] 1.2840.114 350.1.13.10 4.2.7.2.686 [id number] [id number] [facility] 2023-02-28 00:00:00 2023-02-28 00:00:00 Telephone Isaias Henson [facility] 1.2840.114 350.1.13.10 4.2.7.2.686 [id number] 044 [id number] [facility] 2023-02-28 00:00:00 2023-02-28 00:00:00 Telephone Isaias Henson [facility] 1.2840.114 350.1.13.10 4.2.7.2.686 [id number] 044 [id number] [facility] 2023-02-12 00:00:00 2023-02-12 00:00:00 [facility] 1.2840.114 350.1.13.10 4.2.7.2.686 [id number] 044 [id number] [facility] 2023-02-11 00:00:00 2023-02-11 00:00:00 Refill [facility] 1.2840.114 350.1.13.10 4.2.7.2.686 [id number] 044 [id number] [facility] 2023-02-09 00:00:00 2023-02-09 00:00:00 Orders Only Doctor Unassigned, [place] [facility] 1.2840.114 350.1.13.10 4.2.7.2.686 [id number] [id number] [facility] 2023-02-05 12:30:00 2023-02-05 12:30:00 Outpatient R [facility] [id number] [facility] 2023-01-25 00:00:00 2023-01-25 00:00:00 Refill Sixto [facility] 1.2840.114 350.1.13.10 4.2.7.2.686 [id number] 044 [id number] [facility] 2023-01-22 00:00:00 2023-01-22 00:00:00 Telephone Henson [facility] 1.2840.114 350.1.13.10 4.2.7.2.686 [id number] 044 [id number] [facility] 2023-01-09 00:00:00 2023-01-09 00:00:00 Refill Sixto [facility] 1.2840.114 350.1.13.10 4.2.7.2.686 [id number] 044 [id number] [facility] 2023-01-08 09:30:00 2023-01-08 09:47:38 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 Lab, [place] [facility] 1.84.114 350.1.13.10 4.2.7.2.686 [id number] [facility] 2023-01-08 09:30:00 2023-01-08 09:30:00 Outpatient Chris HENSON ISAIAS [facility] [id number] [facility] 2023-01-08 09:00:00 2023-01-08 09:30:00 Office Visit [facility] 1.84.114 350.1.13.10 4.2.7.2.686 [id number] [facility] 2023-01-06 00:00:00 2023-01-06 00:00:00 Orders Only Doctor Unassigned, [place] [facility] 1.2840.114 350.1.13.10 4.2.7.2.686 [id number] [facility] 2022-12-26 00:00:00 2022-12-26 00:00:00 Orders Only Doctor Unassigned, [place] [facility] 1.2840.114 350.1.13.10 4.2.7.2.686 [id number] [facility] 2022-12-20 00:00:00 2022-12-20 00:00:00 Orders Only Doctor Unassigned, [place] [facility] 1.2840.114 350.1.13.10 4.2.7.2.686 [id number] [facility] 2022-12-17 09:45:00 2022-12-17 09:45:00 Outpatient Chris HENSON ISAIAS [facility] [id number] [facility] 2022-12-11 00:00:00 2022-12-11 00:00:00 Refill [facility] 1.20.114 350.1.13.10 4.2.7.2.686 [id number] [id number] [facility] 2022-12-10 00:00:00 2022-12-10 00:00:00 Orders Only Doctor Unassigned, [place] [facility] 1.20.114 350.1.13.10 4.2.7.2.686 [id number] [facility] 2022-12-04 00:00:00 2022-12-04 00:00:00 Transition of Care Alexandra Phillip MOYER [facility] 1..114 350.1.13.10 4.2.7.2.686 [id number] [facility] 2022-11-28 11:44:00 2022-12-03 17:54:00 Inpatient X TISH BENNETT [facility] RYAN [id number] [facility] 2022-11-28 11:44:00 2022-12-03 17:54:00 Hospital Encounter Eddie Win David [facility] 1.0.114 350.1.13.10 4.2.7.2.686 [id number] [facility] 2022-12-02 13:00:00 2022-12-02 13:00:00 Outpatient R ISAIAS HENSON [facility] [id number] [facility] 2022-12-02 00:00:00 2022-12-02 00:00:00 [facility] 1.284.114 350.1.13.10 4.2.7.2.686 [id number] [facility] 2022-11-29 00:00:00 2022-11-29 00:00:00 [facility] 1.2840.114 350.1.13.10 4.2.7.2.686 [id number] [facility] 2022-11-28 11:00:00 2022-11-28 11:20:00 [facility] 1.2840.114 350.1.13.10 4.2.7.2.686 [id number] [facility] 2022-11-28 11:00:00 2022-11-28 11:00:00 [facility] [id number] [facility] 2022-11-28 00:00:00 2022-11-28 00:00:00 [facility] 1.2840.114 350.1.13.10 4.2.7.2.686 [id number] [id number] [facility] 2022-11-25 14:00:00 2022-11-25 14:00:00 Outpatient R ISAIAS HENSON [facility] [id number] [facility] 2022-11-20 00:00:00 2022-11-20 00:00:00 Orders Only Doctor Unassigned, [place] [facility] 1.20.114 350.1.13.10 4.2.7.2.686 [id number] [facility] 2022-11-11 00:00:00 2022-11-11 00:00:00 Telephone Sixto [facility] 1.2840.114 350.1.13.10 4.2.7.2.686 [id number] 044 [id number] [facility] 2022-11-11 00:00:00 2022-11-11 00:00:00 Refill Isaias Henson [facility] 1.2.840.114 350.1.13.10 4.2.7.2.686 [id number] 044 [id number] [facility] 2022-11-11 00:00:00 2022-11-11 00:00:00 Orders Only Doctor Unassigned, [place] [facility] 1.2.840.114 350.1.13.10 4.2.7.2.686 [id number] [facility] 2022-11-08 00:00:00 2022-11-08 00:00:00 Orders Only Doctor Unassigned, [place] [facility] 1.2.840.114 350.1.13.10 4.2.7.2.686 [id number] [facility] 2022-11-05 00:00:00 2022-11-05 00:00:00 Transition of Care [place] [facility] 1.2.840.114 350.1.13.10 4.2.7.2.686 [id number] [facility] 2022-11-05 00:00:00 2022-11-05 00:00:00 Telephone Isaias Henson [facility] 1.2.840.114 350.1.13.10 4.2.7.2.686 [id number] 044 [id number] [facility] 2022-11-05 00:00:00 2022-11-05 00:00:00 Orders Only Doctor Unassigned, [place] [facility] 1.2.840.114 350.1.13.10 4.2.7.2.686 [id number] [id number] [facility] 2022-10-31 09:59:00 2022-11-03 13:08:00 Inpatient X CHRIS TILLMAN [facility] [id number] [facility] 2022-10-31 09:59:00 2022-11-03 13:08:00 Hospital Encounter Chris Tillman David [facility] 1.2840.114 350.1.13.10 4.2.7.2.686 [id number] [facility] 2022-10-30 09:30:00 2022-10-30 09:45:00 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 Lab, Boom Henson [facility] 1.840.114 350.1.13.10 4.2.7.2.686 [id number] [facility] 2022-10-30 09:30:00 2022-10-30 09:30:00 Outpatient Chris HENSON [facility] [id number] [facility] 2022-10-30 09:00:00 2022-10-30 09:30:00 Office Visit Sixto [facility] 1..840.114 350.1.13.10 4.2.7.2.686 [id number] 044 [id number] [facility] 2022-10-30 00:00:00 2022-10-30 00:00:00 [facility] 1..840.114 350.1.13.10 4.2.7.2.686 [id number] 044 [id number] [facility] 2022-10-28 09:00:00 2022-10-28 09:00:00 Outpatient ISAIAS TAN [facility] [id number] [facility] 2022-10-14 00:00:00 2022-10-14 00:00:00 Telephone Henson [facility] BU[facility] 1..840.114 350.1.13.10 4.2.7.2.686 [id number] 044 [id number] [facility] 2022-10-11 00:00:00 2022-10-11 00:00:00 Refill Sixto [facility] BU[facility] 1.840.114 350.1.13.10 4.2.7.2.686 [id number] 044 [id number] [facility] 2022-09-24 14:30:00 2022-09-24 14:30:00 Outpatient R EFFIE VERAS [facility] [id number] [facility] 2022-09-23 12:15:00 2022-09-23 12:15:00 Outpatient R ISAIAS HENSON [facility] [id number] [facility] 2022-09-23 00:00:00 2022-09-23 00:00:00 Telephone Sixto [facility] OFF[facility] BUILDING 1.840.114 350.1.13.10 4.2.7.2.686 [id number] 044 [id number] [facility] 2022-08-19 00:00:00 2022-08-19 00:00:00 Refill Sixto [facility] BU[facility] 1.84.114 350.1.13.10 4.2.7.2.686 [id number] 044 [id number] [facility] 2022-08-17 00:00:00 2022-08-17 00:00:00 Refill Queenie Arredondo [facility] 1.840.114 350.1.13.10 4.2.7.2.686 [id number] [facility] 2022-07-29 00:00:00 2022-07-29 00:00:00 Refill Sixto [facility] BU[facility] 1.2.840.114 350.1.13.10 4.2.7.2.686 [id number] 044 [id number] [facility] 2022-07-29 00:00:00 2022-07-29 00:00:00 RefQueenie Bermudez [facility] 1.2840.114 350.1.13.10 4.2.7.2.686 [id number] [facility] 2022-07-17 08:35:00 2022-07-17 11:43:00 Outpatient R VINCE VASQUEZ [facility] [id number] [facility] 2022-07-17 08:35:00 2022-07-17 11:43:00 Hospital Encounter Vince Vasquez [facility] 1.840.114 350.1.13.10 4.2.7.2.686 [id number] [facility] 2022-07-17 10:21:00 2022-07-17 10:58:00 Anesthesia Event Abdiel Martínez Fernando [facility] 1.2840.114 350.1.13.10 4.2.7.2.686 [id number] 020 [id number] [facility] 2022-07-17 09:32:00 2022-07-17 10:06:00 Surgery Vince Vasquez [facility] 1.2840.114 350.1.13.10 4.2.7.2.686 [id number] [id number] [facility] 2022-07-15 13:45:00 2022-07-15 14:00:00 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 Pob, Adc Lab Main Vince Vasquez [facility] 1.2840.114 350.1.13.10 4.2.7.2.686 [id number] [facility] 2022-07-15 13:45:00 2022-07-15 13:45:00 Outpatient R VINCE VASQUEZ [facility] [id number] [facility] 2022-07-15 00:00:00 2022-07-15 00:00:00 Orders Only Doctor Unassigned, [place] [facility] 1.840.114 350.1.13.10 4.2.7.2.686 [id number] [id number] [facility] 2022-07-15 00:00:00 2022-07-15 00:00:00 Refill Sixto Critical access hospital?[facility] OFF[facility] BUILDING 1.84.114 350.1.13.10 4.2.7.2.686 [id number] [facility] 2022-07-01 00:00:00 2022-07-01 00:00:00 [facility] 1.84.114 350.1.13.10 4.2.7.2.686 [id number] 044 [id number] [facility] 2022-07-01 00:00:00 2022-07-01 00:00:00 Refill Queenie Arredondo [facility] BUILD[facility] 1.84.114 350.1.13.10 4.2.7.2.686 [id number] [facility] 2022-06-12 11:30:00 2022-06-12 11:30:00 Outpatient R QUEENIE ARREDONDO [facility] [id number] [facility] 2022-06-11 00:00:00 2022-06-11 00:00:00 Refill Henson, [facility] 1.840.114 350.1.13.10 4.2.7.2.686 [id number] 044 [id number] [facility] 2022-05-29 13:30:00 2022-05-29 13:30:00 Outpatient R QUEENIE ARREDONDO [facility] [id number] [facility] 2022-05-13 00:00:00 2022-05-13 00:00:00 Refill Sixto [facility] BU[facility] 1.2.840.114 350.1.13.10 4.2.7.2.686 [id number] 044 [id number] [facility] 2022-04-23 00:00:00 2022-04-23 00:00:00 Refill Sixto [facility] 1.2.840.114 350.1.13.10 4.2.7.2.686 [id number] 044 [id number] [facility] 2022-04-23 00:00:00 2022-04-23 00:00:00 Telephone Karly Arredondotney [facility] BUILDING 1.2.840.114 350.1.13.10 4.2.7.2.686 [id number] [facility] 2022-04-23 00:00:00 2022-04-23 00:00:00 Refalejo Henson [facility] 1.2.840.114 350.1.13.10 4.2.7.2.686 [id number] 044 [id number] [facility] 2022-04-17 14:00:00 2022-04-17 14:45:45 Outpatient R QUEENIE ARREDONDO [facility] [id number] [facility] 2022-04-17 14:00:00 2022-04-17 14:45:45 [facility] 1.2.840.114 350.1.13.10 4.2.7.2.686 [id number] [facility] 2022-04-17 14:00:00 2022-04-17 14:00:00 Outpatient QUEENIE EPPS [facility] [id number] [facility] 2022-04-03 16:00:00 2022-04-03 16:10:00 Imm/Inj Visit Vaccine, Adc Family Medicine [facility]aias [facility] 1.2.840.114 350.1.13.10 4.2.7.2.686 [id number] 044 [id number] [facility] 2022-04-03 16:00:00 2022-04-03 16:00:00 Outpatient Chris SIXTO ISAIAS [facility] [id number] [facility] 2022-04-03 13:15:00 2022-04-03 13:30:00 [facility] 1.2.840.114 350.1.13.10 4.2.7.2.686 [id number] [id number] [facility] 2022-04-03 13:15:00 2022-04-03 13:15:00 Outpatient Chris ISAIAS HENSON [facility] [id number] [facility] 2022-04-03 13:15:00 2022-04-03 13:15:00 Outpatient Chris ISAIAS HENSON [facility] [id number] [facility] 2022-04-02 00:00:00 2022-04-02 00:00:00 Refill Sixto [facility] 1.2.840.114 350.1.13.10 4.2.7.2.686 [id number] 044 [id number] [facility] 2022-03-26 00:00:00 2022-03-26 00:00:00 Refill Sixto [facility] OFF[facility] BUILD[facility] 1.0.114 350.1.13.10 4.2.7.2.686 [id number] 044 [id number] [facility] 2022-03-25 00:00:00 2022-03-25 00:00:00 Refill Sixto [facility] RUBY MEJIA[facility] 1.840.114 350.1.13.10 4.2.7.2.686 [id number] 044 [id number] [facility] 2022-03-23 00:00:00 2022-03-23 00:00:00 [facility] 1.114 350.1.13.10 4.2.7.2.686 [id number] 044 [id number] [facility] 2022-03-13 13:45:00 2022-03-13 13:45:00 [facility] [id number] 2022-02-20 00:00:00 2022-02-20 00:00:00 Refill [facility]xto [facility] 1.114 350.1.13.10 4.2.7.2.686 [id number] 044 [id number] [facility] 2022-02-19 00:00:00 2022-02-19 00:00:00 Refill Sixto [facility] RUBY MEJIA?[facility] OFF[facility] BUILD[facility] 1..114 350.1.13.10 4.2.7.2.686 [id number] 044 [id number] [facility] 2021-12-27 00:00:00 2021-12-27 00:00:00 Refill Sixto [facility] RUBY MEJIA?[facility] OFF[facility] BUILD[facility] 1.0.114 350.1.13.10 4.2.7.2.686 [id number] 044 [id number] [facility] 2021-12-26 00:00:00 2021-12-26 00:00:00 Telephone Isaias Henson [facility] 1.2840.114 350.1.13.10 4.2.7.2.686 [id number] 044 [id number] [facility] 2021-12-18 00:00:00 2021-12-18 00:00:00 Refill Isaias [facility]enson [facility] BUILD[facility] 1.2840.114 350.1.13.10 4.2.7.2.686 [id number] 044 [id number] [facility] 2021-11-20 00:00:00 2021-11-20 00:00:00 Telephone Isaias [facility]enson [facility] BUILD[facility] 1.2840.114 350.1.13.10 4.2.7.2.686 [id number] 044 [id number] [facility] 2021-10-22 00:00:00 2021-10-22 00:00:00 Telephone Isaias Henson [facility] BUILD[facility] 1.2840.114 350.1.13.10 4.2.7.2.686 [id number] 044 [id number] [facility] 2021-10-01 00:00:00 2021-10-01 00:00:00 Refill [facility]xto [facility] BUILD[facility] 1.2840.114 350.1.13.10 4.2.7.2.686 [id number] 044 [id number] [facility] 2021-09-27 00:00:00 2021-09-27 00:00:00 Refill [facility]xto [facility] 1.2840.114 350.1.13.10 4.2.7.2.686 [id number] 044 [id number] [facility] 2021-09-26 14:00:00 2021-09-26 14:05:04 Outpatient ISAIAS TAN [facility] [id number] [facility] 2021-09-26 14:00:00 2021-09-26 14:00:00 Outpatient R ISAIAS HENSON [facility] [id number] [facility] 2021-09-26 13:26:07 2021-09-26 13:41:07 Office Visit Sixto Critical access hospital?[facility] MEDICAL OFFICE BUILDING 1.84.114 350.1.13.10 4.2.7.2.686 [id number] 044 [id number] [facility] 2021-09-19 13:15:00 2021-09-19 13:15:00 Outpatient R ISAIAS HENSON [facility] [id number] [facility] 2021-09-19 00:00:00 2021-09-19 00:00:00 Refill Sixto [facility] Medical Office Building 1.84.114 350.1.13.10 4.2.7.2.686 [id number] 044 [id number] [facility] 2021-09-07 00:00:00 2021-09-07 00:00:00 Orders Only Doctor Unassigned, [place] [facility] 1.114 350.1.13.10 4.2.7.2.686 [id number] [id number] [facility] 2021-08-20 00:00:00 2021-08-20 00:00:00 [facility] Medical Office Building 1.84.114 350.1.13.10 4.2.7.2.686 [id number] 044 [id number] [facility] 2021-08-12 00:00:00 2021-08-12 00:00:00 Refill Isaias Henson [facility] Office Building One 1.20.114 350.1.13.10 4.2.7.2.686 [id number] 044 [id number] [facility] 2021-07-25 06:36:00 2021-07-25 09:28:00 Hospital Encounter Vince Vasquez [facility] Surgical Cope 1.2.840.114 350.1.13.10 4.2.7.2.686 [id number] [id number] [facility] 2021-07-25 07:30:00 2021-07-25 08:11:00 Surgery Vince Vasquez [facility] Surgical Cope 1.2840.114 350.1.13.10 4.2.7.2.686 [id number] [id number] [facility] 2021-07-24 10:16:59 2021-07-24 10:31:59 Laboratory Only Only, Adc Test Vince Vasquez [facility] 1.0.114 350.1.13.10 4.2.7.2.686 [id number] [facility] 2021-07-24 10:15:00 2021-07-24 10:15:00 Outpatient R VINCE VASQUEZ [facility] [id number] [facility] 2021-07-23 00:00:00 2021-07-23 00:00:00 Telephone Isaias Henson [facility] Raf?[facility] Medical Office Building 1.284.114 350.1.13.10 4.2.7.2.686 [id number] 044 [id number] [facility] 2021-07-20 12:50:28 2021-07-20 13:05:28 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 Pob, Adc Lab Main Vince Vasquez [facility] Building 1.2.114 350.1.13.10 4.2.7.2.686 [id number] [facility] 2021-07-20 13:00:00 2021-07-20 13:00:00 Outpatient VINCE METZGER [facility] [id number] [facility] 2021-07-20 00:00:00 2021-07-20 00:00:00 Orders Only Doctor Unassigned, [place] [facility] 1.2.840.114 350.1.13.10 4.2.7.2.686 [id number] [facility] 2021-07-18 13:32:13 2021-07-18 13:47:13 Office [facility] 1.2.840.114 350.1.13.10 4.2.7.2.686 [id number] 044 [id number] [facility] 2021-07-18 13:30:00 2021-07-18 13:30:00 Outpatient ISAIAS TAN [facility] [id number] [facility] 2021-06-06 00:00:00 2021-06-06 00:00:00 Orders Only Doctor Unassigned, [place] [facility] 1.2.840.114 350.1.13.10 4.2.7.2.686 [id number] [facility] 2021-03-21 13:00:00 2021-03-21 13:00:00 Outpatient ISAIAS TAN [facility] [id number] [facility] 2021-01-05 12:30:00 2021-01-05 12:30:00 Outpatient CHRISTINE ZEPEDA [facility] [id number] [facility] 2020-12-20 13:00:00 2020-12-20 13:00:00 Outpatient ISAIAS TAN [facility] [id number] [facility] 2020-12-15 12:30:00 2020-12-15 12:30:00 Outpatient Chris DALILA CHRISTINE [facility] [id number] [facility] 2020-12-07 14:10:00 2020-12-07 14:10:00 Outpatient Chris DALILACHRISTINE [facility] [id number] [facility] 2020-11-08 14:15:00 2020-11-08 14:15:00 Outpatient ISAIAS TAN [facility] [id number] [facility] 2020-10-26 13:00:00 2020-10-26 13:00:00 Outpatient Chris [facility] [id number] [facility] 2020-08-29 10:00:00 2020-08-29 10:00:00 Outpatient ISAIAS TAN [facility] [id number] [facility] 2020-04-24 15:00:00 2020-04-24 15:00:00 Outpatient RICKY JIMENEZ [facility] [id number] [facility] 2020-03-13 10:00:00 2020-03-13 10:00:00 Outpatient ISAIAS TAN [facility] [id number] [facility] 2020-03-01 13:15:00 2020-03-01 13:15:00 Outpatient ISAIAS TAN [facility] [id number] [facility] 2019-12-01 17:26:13 2019-12-01 21:43:00 Emergency X FABY NICOLETTE [facility] ERT [id number] [facility] Results Test Description Test Time Test Comments Results Result Co mments Source [facility] GLUCOSE (AUTOMATED)2022-12-03 18:35:25* Test Item Value Reference Range Interpretation Comme nts POCT GLU (test code = 8768025409) 185 mg/dL 70-110 H Lab Interpretation (test cod e = 82616-5) Abnormal [facility] GLUCOSE (AUTOMATED)2022-12-03 14:37:09* Test Item Value Reference Range Interpretation Comme nts POCT GLU (test code = 0764538205) 119 mg/dL 70-110 H Lab Interpretation (test cod e = 65321-9) [facility]57* Test Item Value Reference Range Interpretation Comme nts MAGNESIUM (test code = 3626659845) 1.8 mg/dL 1.7-2.4 Lab Interpretation (test cod e = 06849-5) Normal [facility] (NA, K, CL, CO2, GLUCOSE, BUN, CREATININE, CA)2022-12-03 12:52:37* Test Item Value Reference Range Interpretation Comme nts NA (test code = 9050854654) 134 mmol/L 135-145 L K (test code = 0102137826) 3.4 mmol/L 3.5-5.0 L CL (test code = 3404459396) 108 mmol/L 98-108 CO2 TOTAL (test code = 4925184843) 25 mmol/L 23-31 AGAP (test code = 2407782598) 2-16 L BUN (test code = 4043397937) 36 mg/dL 7-23 H GLUCOSE (test code = 0027545815) 92 mg/dL 70-110 CREATININE (test code = 1319478264) 1.38 mg/dL 0.50-1.04 H CALCIUM (test code = 5878628215) 7.4 mg/dL 8.6-10.6 L eGFR (test code = 7681248219) mL/min/1.73m2 BONY (test code = BONY) Association of [...] or abnormalities in imaging tests). Lab Interpretation (test code = 52390-3) Abnormal [facility] WITH [id number] 12:31:57* Test Item Value Reference Range Interpretation Comme nts WBC (test code = 6690-2) See_Comment [Automated Silver [employer] PENRITH] The system which generated this result transmitted reference range: 4.30 - 11.10 10*3/?L. The reference range was not used to interpret this result as normal/abnormal. RBC (test code = 789-8) See_Comment L [Automated Silver [employer] PENRITH] The system which generated this result transmitted reference range: 3.93 - 5.25 10*6/?L. The reference range was not used to interpret this result as normal/abnormal. HGB (test code = 718-7) 8.8 g/dL 11.6-15.0 L HCT (test code = 4544-3) 26.5 % 35.7-45.2 L MCV (test code = 787-2) 91.1 fL 80.6-95.5 MCH (test code = 785-6) 30.2 pg 25.9-32.8 MCHC (test code = 786-4) 33.2 g/dL 31.6-35.1 RDW-SD (test code = 07909-1) 49.9 fL 39.0-49.9 RDW-CV (test code = 788-0) 15.0 % 12.0-15.5 PLT (test code = 777-3) See_Comment [Automated [employer] PENRITH] The system which generated this result transmitted reference range: 166 - 358 10*3/?L. The reference range was not used to interpret this result as normal/abnormal. MPV (test code = 50357-3) 10.2 fL 9.5-12.9 NRBC/100 WBC (test code = 4600318088) See_Comment [Automated me ssage] The system which generated this result transmitted reference range: 0.0 - 10.0 /100 WBCs. The reference range was not used to interpret this result as normal/abnormal. NRBC x10^3 (test code = 3807377294) See_Comment [Automated messa ge] The system which generated this result transmitted reference range: 10*3/?L. The reference range was not used to interpret this result as normal/abnormal. GRAN MAT (NEUT) % (test code = 770-8) 49.5 % IMM GRAN % (test code = 9078736465) 0.30 % LYMPH % (test code = 736-9) 34.4 % MONO % (test code = 5905-5) 13.0 % EOS % (test code = 713-8) 1.8 % BASO % (test code = 706-2) 1.0 % GRAN MAT x10^3(ANC) (test code = 0646736019) 3.55 10*3/uL 1.88-7.09 IMM GRAN x10^3 (test code = 9183310984) 0.00-0.06 LYMPH x10^3 (test code = 731-0) 2.46 10*3/uL 1.32-3.29 MONO x10^3 (test code = 742-7) 0.93 10*3/uL 0.33-0.92 H EOS x10^3 (test code = 711-2) 0.13 10*3/uL 0.03-0.39 BASO x10^3 (test code = 704-7) 0.07 10*3/uL 0.01-0.07 Lab Interpretation (test code = 19758-0) Abnormal [facility] GLUCOSE (AUTOMATED)2022-12-03 02:40:24* Test Item Value Reference Range Interpretation Comme [facility] POCT GLU (test code = 3918093881) 153 mg/dL 70-110 H Lab Interpretation (test cod e = 33808-8) Abnormal [facility] GLUCOSE (AUTOMATED)2022-12-02 23:13:25* Test Item Value Reference Range Interpretation Comme nts POCT GLU (test code = 2625558766) 81 mg/dL 70-110 Lab Interpretation (test cod e = 14390-1) Normal [facility] GLUCOSE (AUTOMATED)2022-12-02 17:51:15* Test Item Value Reference Range Interpretation Comme nts POCT GLU (test code = 1557733798) 138 mg/dL 70-110 H Lab Interpretation (test cod e = 14852-5) Abnormal [facility] GLUCOSE (AUTOMATED)2022-12-02 14:08:07* Test Item Value Reference Range Interpretation Comme nts POCT GLU (test code = 8528522039) 74 mg/dL 70-110 Lab Interpretation (test cod e = 56484-9) Normal [facility] METABOLIC PANEL (NA, K, CL, CO2, GLUCOSE, BUN, CREATININE, CA)2022-12-02 12:11:00* Test Item Value Reference Range Interpretation Comme [facility] NA (test code = 4488746036) 135 mmol/L 135-145 K (test code = 7296347970) 3.5 mmol/L 3.5-5.0 CL (test code = 5071660563) 109 mmol/L 98-108 H CO2 TOTAL (test code = 2656711638) 24 mmol/L 23-31 AGAP (test code = 4170071478) 2-16 BUN (test code = 3262874703) 39 mg/dL 7-23 H GLUCOSE (test code = 9120466410) 75 mg/dL 70-110 CREATININE (test code = 8987020531) 1.50 mg/dL 0.50-1.04 H CALCIUM (test code = 6695452246) 7.3 mg/dL 8.6-10.6 L eGFR (test code = 1722449666) mL/min/1.73m2 BONY (test code = BONY) Association of [...] or abnormalities in imaging tests). Lab Interpretation (test code = 49261-7) Abnormal [facility] GLUCOSE (AUTOMATED)2022-12-02 02:49:05* Test Item Value Reference Range Interpretation Comme nts POCT GLU (test code = 6093209715) 124 mg/dL 70-110 H Lab Interpretation (test cod e = 40363-9) Abnormal [facility] GLUCOSE (AUTOMATED)2022-12-01 22:31:31* Test Item Value Reference Range Interpretation Comme nts POCT GLU (test code = 3590072205) 131 mg/dL 70-110 H Lab Interpretation (test cod e = 64285-0) Abnormal [facility] GLUCOSE (AUTOMATED)2022-12-01 18:09:02* Test Item Value Reference Range Interpretation Comme nts POCT GLU (test code = 4695431882) 179 mg/dL 70-110 H Lab Interpretation (test cod e = 71851-3) Abnormal [facility] GLUCOSE (AUTOMATED)2022-12-01 13:54:43* Test Item Value Reference Range Interpretation Comme nts POCT GLU (test code = 8684342754) 81 mg/dL 70-110 Lab Interpretation (test cod e = 64082-8) Normal [facility] WITH [id number] 11:45:31* Test Item Value Reference Range Interpretation Comme nts WBC (test code = 6690-2) See_Comment [Automated messa ge] The system which generated this result transmitted reference range: 4.30 - 11.10 10*3/?L. The reference range was not used to interpret this result as normal/abnormal. RBC (test code = 789-8) See_Comment L [Automated messa ge] The system which generated this result transmitted reference range: 3.93 - 5.25 10*6/?L. The reference range was not used to interpret this result as normal/abnormal. HGB (test code = 718-7) 10.2 g/dL 11.6-15.0 L HCT (test code = 4544-3) 29.4 % 35.7-45.2 L MCV (test code = 787-2) 89.4 fL 80.6-95.5 MCH (test code = 785-6) 31.0 pg 25.9-32.8 MCHC (test code = 786-4) 34.7 g/dL 31.6-35.1 RDW-SD (test code = 89897-1) 49.2 fL 39.0-49.9 RDW-CV (test code = 788-0) 15.1 % 12.0-15.5 PLT (test code = 777-3) See_Comment [Automated messa ge] The system which generated this result transmitted reference range: 166 - 358 10*3/?L. The reference range was not used to interpret this result as normal/abnormal. MPV (test code = 66907-0) 10.8 fL 9.5-12.9 NRBC/100 WBC (test code = 6217307123) See_Comment [Automated [employer] ssage] The system which generated this result transmitted reference range: 0.0 - 10.0 /100 WBCs. The reference range was not used to interpret this result as normal/abnormal. NRBC x10^3 (test code = 5603309260) See_Comment [Automated messa ge] The system which generated this result transmitted reference range: 10*3/?L. The reference range was not used to interpret this result as normal/abnormal. GRAN MAT (NEUT) % (test code = 770-8) 61.4 % IMM GRAN % (test code = 3518787829) 0.50 % LYMPH % (test code = 736-9) 24.2 % MONO % (test code = 5905-5) 12.0 % EOS % (test code = 713-8) 1.2 % BASO % (test code = 706-2) 0.7 % GRAN MAT x10^3(ANC) (test code = 4871189062) 6.19 10*3/uL 1.88-7.09 IMM GRAN x10^3 (test code = 0968126452) 0.05 10*3/uL 0.00-0.06 LYMPH x10^3 (test code = 731-0) 2.44 10*3/uL 1.32-3.29 MONO x10^3 (test code = 742-7) 1.21 10*3/uL 0.33-0.92 H EOS x10^3 (test code = 711-2) 0.12 10*3/uL 0.03-0.39 BASO x10^3 (test code = 704-7) 0.07 10*3/uL 0.01-0.07 Lab Interpretation (test code = 78079-4) Abnormal [facility] METABOLIC PANEL (NA, K, CL, CO2, GLUCOSE, BUN, CREATININE, CA)2022-12-01 11:37:12* Test Item Value Reference Range Interpretation Comme nts NA (test code = 2702024822) 135 mmol/L 135-145 K (test code = 0521121499) 3.5 mmol/L 3.5-5.0 CL (test code = 0090623431) 110 mmol/L 98-108 H CO2 TOTAL (test code = 4299184703) 22 mmol/L 23-31 L AGAP (test code = 1438905001) 2-16 BUN (test code = 2749326825) 46 mg/dL 7-23 H GLUCOSE (test code = 6370708375) 88 mg/dL 70-110 CREATININE (test code = 8942412964) 1.58 mg/dL 0.50-1.04 H CALCIUM (test code = 1816907936) 7.4 mg/dL 8.6-10.6 L eGFR (test code = 4667144735) mL/min/1.73m2 BONY (test code = BONY) Association of [...] or abnormalities in imaging tests). Lab Interpretation (test code = 35102-1) Abnormal [facility] GLUCOSE (AUTOMATED)2022-12-01 03:28:31* Test Item Value Reference Range Interpretation Comme nts POCT GLU (test code = 0320632755) 227 mg/dL 70-110 H Lab Interpretation (test cod e = 89804-3) Abnormal [facility] GLUCOSE (AUTOMATED)2022-11-30 23:55:28* Test Item Value Reference Range Interpretation Comme nts POCT GLU (test code = 5859744891) 53 mg/dL 70-110 L Lab Interpretation (test cod e = 32789-8) Abnormal [facility] GLUCOSE (AUTOMATED)2022-11-30 23:55:28* Test Item Value Reference Range Interpretation Comme nts POCT GLU (test code = 6217703683) 65 mg/dL 70-110 L Lab Interpretation (test cod e = 83811-9) Abnormal [facility] GLUCOSE (AUTOMATED)2022-11-30 23:55:28* Test Item Value Reference Range Interpretation Comme nts POCT GLU (test code = 2079076106) 88 mg/dL 70-110 Lab Interpretation (test cod e = 33379-3) Normal [facility] GLUCOSE (AUTOMATED)2022-11-30 23:13:35* Test Item Value Reference Range Interpretation Comme nts POCT GLU (test code = 3466952878) 45 mg/dL 70-110 LL Lab Interpretation (test cod e = 98069-0) [id number]* Test Item Value Reference Range Interpretation Comme nts ADDISON AM (test code = 2788620243) 16.7 ug/dL 4.5-23.0 BONY (test code = BONY) Biotin has been reported to cause a positive bias, interpret results relative to patient's use of biotin. Lab Interpretation (test code = 09034-9) Normal [facility] GLUCOSE (AUTOMATED)2022-11-30 18:00:43* Test Item Value Reference Range Interpretation Comme nts POCT GLU (test code = 3358721842) 241 mg/dL 70-110 H Lab Interpretation (test cod e = 52944-5) Abnormal [facility] GLUCOSE (AUTOMATED)2022-11-30 14:12:28* Test Item Value Reference Range Interpretation Comme nts POCT GLU (test code = 8544831553) 92 mg/dL 70-110 Lab Interpretation (test cod e = 08580-1) Normal [facility] WITH [id number] 11:56:05* Test Item Value Reference Range Interpretation Comme nts WBC (test code = 6690-2) See_Comment H [Automated messa ge] The system which generated this result transmitted reference range: 4.30 - 11.10 10*3/?L. The reference range was not used to interpret this result as normal/abnormal. RBC (test code = 789-8) See_Comment L [Automated messa ge] The system which generated this result transmitted reference range: 3.93 - 5.25 10*6/?L. The reference range was not used to interpret this result as normal/abnormal. HGB (test code = 718-7) 10.1 g/dL 11.6-15.0 L HCT (test code = 4544-3) 29.4 % 35.7-45.2 L MCV (test code = 787-2) 89.6 fL 80.6-95.5 MCH (test code = 785-6) 30.8 pg 25.9-32.8 MCHC (test code = 786-4) 34.4 g/dL 31.6-35.1 RDW-SD (test code = 33399-5) 47.9 fL 39.0-49.9 RDW-CV (test code = 788-0) 14.8 % 12.0-15.5 PLT (test code = 777-3) See_Comment [Automated messa ge] The system which generated this result transmitted reference range: 166 - 358 10*3/?L. The reference range was not used to interpret this result as normal/abnormal. MPV (test code = 42973-3) 10.6 fL 9.5-12.9 NRBC/100 WBC (test code = 3004371167) See_Comment [Automated [employer] ssage] The system which generated this result transmitted reference range: 0.0 - 10.0 /100 WBCs. The reference range was not used to interpret this result as normal/abnormal. NRBC x10^3 (test code = 5598545688) See_Comment [Automated messa ge] The system which generated this result transmitted reference range: 10*3/?L. The reference range was not used to interpret this result as normal/abnormal. GRAN MAT (NEUT) % (test code = 770-8) 71.7 % IMM GRAN % (test code = 3324835596) 0.60 % LYMPH % (test code = 736-9) 17.1 % MONO % (test code = 5905-5) 9.1 % EOS % (test code = 713-8) 1.0 % BASO % (test code = 706-2) 0.5 % GRAN MAT x10^3(ANC) (test code = 3301943175) 8.78 10*3/uL 1.88-7.09 H IMM GRAN x10^3 (test code = 4362687676) 0.07 10*3/uL 0.00-0.06 H LYMPH x10^3 (test code = 731-0) 2.09 10*3/uL 1.32-3.29 MONO x10^3 (test code = 742-7) 1.11 10*3/uL 0.33-0.92 H EOS x10^3 (test code = 711-2) 0.12 10*3/uL 0.03-0.39 BASO x10^3 (test code = 704-7) 0.06 10*3/uL 0.01-0.07 Lab Interpretation (test code = 14226-6) Abnormal [facility] METABOLIC PANEL (NA, K, CL, CO2, GLUCOSE, BUN, CREATININE, CA)2022-11-30 11:11:21* Test Item Value Reference Range Interpretation Comme nts NA (test code = 8329919113) 136 mmol/L 135-145 K (test code = 0957945603) 3.2 mmol/L 3.5-5.0 L CL (test code = 7528519111) 110 mmol/L 98-108 H CO2 TOTAL (test code = 6392460713) 22 mmol/L 23-31 L AGAP (test code = 1639026079) 2-16 BUN (test code = 7148737383) 49 mg/dL 7-23 H GLUCOSE (test code = 9405272947) 92 mg/dL 70-110 CREATININE (test code = 4502984059) 1.71 mg/dL 0.50-1.04 H CALCIUM (test code = 1665804740) 7.2 mg/dL 8.6-10.6 L eGFR (test code = 0080789379) mL/min/1.73m2 BONY (test code = BONY) Association of [...] or abnormalities in imaging tests). Lab Interpretation (test code = 00536-2) Abnormal [facility] GLUCOSE (AUTOMATED)2022-11-30 03:59:50* Test Item Value Reference Range Interpretation Comme nts POCT GLU (test code = 0306368842) 174 mg/dL 70-110 H Lab Interpretation (test cod e = 28530-8) Abnormal [facility] GLUCOSE (AUTOMATED)2022-11-30 02:46:55* Test Item Value Reference Range Interpretation Comme nts POCT GLU (test code = 5533495429) 174 mg/dL 70-110 H Lab Interpretation (test cod e = 70504-7) Abnormal [facility] GLUCOSE (AUTOMATED)2022-11-29 18:40:59* Test Item Value Reference Range Interpretation Comme nts POCT GLU (test code = 8310811052) 138 mg/dL 70-110 H Lab Interpretation (test cod e = 11239-4) Abnormal [facility] GLUCOSE (AUTOMATED)2022-11-29 15:14:10* Test Item Value Reference Range Interpretation Comme nts POCT GLU (test code = 7349224519) 88 mg/dL 70-110 Lab Interpretation (test cod e = 48155-3) Normal [facility] GLUCOSE (AUTOMATED)2022-11-29 02:27:02* Test Item Value Reference Range Interpretation Comme nts POCT GLU (test code = 4603918823) 174 mg/dL 70-110 H Lab Interpretation (test cod e = 83368-3) [facility] [id number] 23:36:44 * Test Item Value Reference Range Interpretation Comme nts TSH (test code = 6312998786) See_Comment Biotin has been reported to cause a negative bias, interpret results relative to patient's use of biotin. [Automated message] The system which generated this result transmitted reference range: 0.45 - 4.70 mIU/L. The reference range was not used to interpret this result as normal/abnormal. Lab Interpretation (test code = 77261-9) Normal [id number] 18:34:27* Test Item Value Reference Range Interpretation Comments TROPONIN I (test code = 0863494109) 0.076 ng/mL See_Comment H [Automated message] The system which generated this result transmitted reference range: <=0.034. The reference range was not used to interpret this result as normal/abnormal. BONY (test code = BONY) Reference (Normal) Range (defined by the 99th percentile reference [...] patient's use of biotin. Lab Interpretation (test code = 41153-5) [facility] (63951[facility]2022-11-28 18:25:16* Test Item Value Reference Range Interpretation Comme nts NA (test code = 5549205224) 133 mmol/L 135-145 L K (test code = 5464224385) 2.8 mmol/L 3.5-5.0 LL CL (test code = 1506382624) 99 mmol/L 98-108 CO2 TOTAL (test code = 6399136982) 25 mmol/L 23-31 AGAP (test code = 5440630670) 2-16 BUN (test code = 4355745706) 58 mg/dL 7-23 H GLUCOSE (test code = 9987518506) 103 mg/dL 70-110 CREATININE (test code = 0584928330) 2.06 mg/dL 0.50-1.04 H TOTAL BILI (test code = 9599734314) 0.9 mg/dL 0.1-1.1 CALCIUM (test code = 2869756231) 7.8 mg/dL 8.6-10.6 L T PROTEIN (test code = 7429399128) 5.8 g/dL 6.3-8.2 L ALBUMIN (test code = 4858268027) 2.8 g/dL 3.5-5.0 L ALK PHOS (test code = 8891838405) 58 U/L 34-122 ALTv (test code = 1742-6) 16 U/L 5-35 AST(SGOT) (test code = 8428482111) 28 U/L 13-40 eGFR (test code = 3263458300) mL/min/1.73m2 BONY (test code = BONY) Association of [...] or abnormalities in imaging tests). Lab Interpretation (test code = 18877-7) Abnormal [facility] WITH [id number] 18:11:22* Test Item Value Reference Range Interpretation Comme nts WBC (test code = 6690-2) See_Comment H [Automated message] The system which generated this result transmitted reference range: 4.30 - 11.10 10*3/?L. The reference range was not used to interpret this result as normal/abnormal. RBC (test code = 789-8) See_Comment L [Automated message] The system which generated this result transmitted reference range: 3.93 - 5.25 10*6/?L. The reference range was not used to interpret this result as normal/abnormal. HGB (test code = 718-7) 10.9 g/dL 11.6-15.0 L HCT (test code = 4544-3) 32.1 % 35.7-45.2 L MCV (test code = 787-2) 89.9 fL 80.6-95.5 MCH (test code = 785-6) 30.5 pg 25.9-32.8 MCHC (test code = 786-4) 34.0 g/dL 31.6-35.1 RDW-SD (test code = 37467-3) 48.7 fL 39.0-49.9 RDW-CV (test code = 788-0) 14.7 % 12.0-15.5 PLT (test code = 777-3) See_Comment [Automated message] The system which generated this result transmitted reference range: 166 - 358 10*3/?L. The reference range was not used to interpret this result as normal/abnormal. MPV (test code = 57890-2) 10.2 fL 9.5-12.9 NRBC/100 WBC (test code = 7515702790) See_Comment [Automated message] The system which generated this result transmitted reference range: 0.0 - 10.0 /100 WBCs. The reference range was not used to interpret this result as normal/abnormal. NRBC x10^3 (test code = 1744868670) See_Comment [Automated message] The system which generated this result transmitted reference range: 10*3/?L. The reference range was not used to interpret this result as normal/abnormal. GRAN MAT (NEUT) % (test code = 770-8) 76.4 % IMM GRAN % (test code = 8713091805) 0.60 % LYMPH % (test code = 736-9) 14.1 % MONO % (test code = 5905-5) 7.6 % EOS % (test code = 713-8) 0.7 % BASO % (test code = 706-2) 0.6 % GRAN MAT x10^3(ANC) (test code = 0055141858) 10.51 10*3/uL 1.88-7.09 H IMM GRAN x10^3 (test code = 2952578019) 0.08 10*3/uL 0.00-0.06 H LYMPH x10^3 (test code = 731-0) 1.94 10*3/uL 1.32-3.29 MONO x10^3 (test code = 742-7) 1.05 10*3/uL 0.33-0.92 H EOS x10^3 (test code = 711-2) 0.10 10*3/uL 0.03-0.39 BASO x10^3 (test code = 704-7) 0.08 10*3/uL 0.01-0.07 H Lab Interpretation (test code = 43944-6) Abnormal [facility] GLUCOSE (AUTOMATED)2022-11-03 15:19:59* Test Item Value Reference Range Interpretation Comme nts POCT GLU (test code = 7010281211) 79 mg/dL 70-110 Lab Interpretation (test cod e = 80821-8) Normal [facility] GLUCOSE (AUTOMATED)2022-11-02 22:46:18* Test Item Value Reference Range Interpretation Comme nts POCT GLU (test code = 5048207253) 122 mg/dL 70-110 H Lab Interpretation (test cod e = 41016-3) Abnormal [facility] GLUCOSE (AUTOMATED)2022-11-02 18:01:09* Test Item Value Reference Range Interpretation Comme [facility] POCT GLU (test code = 3242870952) 125 mg/dL 70-110 H Lab Interpretation (test cod e = 46403-4) Abnormal [facility] GLUCOSE (AUTOMATED)2022-11-02 14:36:18* Test Item Value Reference Range Interpretation Comme [facility] POCT GLU (test code = 4335445579) 79 mg/dL 70-110 Lab Interpretation (test cod e = 81159-8) Normal [facility] METABOLIC PANEL (NA, K, CL, CO2, GLUCOSE, BUN, CREATININE, CA)2022-11-02 10:44:48* Test Item Value Reference Range Interpretation Comme [facility] NA (test code = 7208280038) 138 mmol/L 135-145 K (test code = 7930734641) 3.8 mmol/L 3.5-5.0 CL (test code = 8358694178) 110 mmol/L 98-108 H CO2 TOTAL (test code = 1858739268) 25 mmol/L 23-31 AGAP (test code = 4099106185) 2-16 BUN (test code = 6035211584) 17 mg/dL 7-23 GLUCOSE (test code = 2063348295) 113 mg/dL 70-110 H CREATININE (test code = 9983881609) 1.12 mg/dL 0.50-1.04 H CALCIUM (test code = 8081628151) 7.9 mg/dL 8.6-10.6 L eGFR (test code = 0372401053) mL/min/1.73m2 BONY (test code = BONY) Association of [...] or abnormalities in imaging tests). Lab Interpretation (test code = 35642-7) Abnormal [facility] WITH [id number] 10:20:28* Test Item Value Reference Range Interpretation Comme nts WBC (test code = 6690-2) See_Comment [Automated [employer]] The system which generated this result transmitted reference range: 4.30 - 11.10 10*3/?L. The reference range was not used to interpret this result as normal/abnormal. RBC (test code = 789-8) See_Comment L [Automated [employer]ENRITH] The system which generated this result transmitted reference range: 3.93 - 5.25 10*6/?L. The reference range was not used to interpret this result as normal/abnormal. HGB (test code = 718-7) 7.7 g/dL 11.6-15.0 L HCT (test code = 4544-3) 23.2 % 35.7-45.2 L MCV (test code = 787-2) 92.4 fL 80.6-95.5 MCH (test code = 785-6) 30.7 pg 25.9-32.8 MCHC (test code = 786-4) 33.2 g/dL 31.6-35.1 RDW-SD (test code = 60474-9) 53.6 fL 39.0-49.9 H RDW-CV (test code = 788-0) 15.9 % 12.0-15.5 H PLT (test code = 777-3) See_Comment [Automated [employer]] The system which generated this result transmitted reference range: 166 - 358 10*3/?L. The reference range was not used to interpret this result as normal/abnormal. MPV (test code = 30941-1) 11.4 fL 9.5-12.9 NRBC/100 WBC (test code = 6237728276) See_Comment [Automated me ssage] The system which generated this result transmitted reference range: 0.0 - 10.0 /100 WBCs. The reference range was not used to interpret this result as normal/abnormal. NRBC x10^3 (test code = 4663707619) See_Comment [Automated messa ge] The system which generated this result transmitted reference range: 10*3/?L. The reference range was not used to interpret this result as normal/abnormal. GRAN MAT (NEUT) % (test code = 770-8) 55.4 % IMM GRAN % (test code = 0046470995) 1.00 % LYMPH % (test code = 736-9) 29.2 % MONO % (test code = 5905-5) 9.6 % EOS % (test code = 713-8) 4.0 % BASO % (test code = 706-2) 0.8 % GRAN MAT x10^3(ANC) (test code = 9837726756) 3.37 10*3/uL 1.88-7.09 IMM GRAN x10^3 (test code = 0373952711) 0.06 10*3/uL 0.00-0.06 LYMPH x10^3 (test code = 731-0) 1.77 10*3/uL 1.32-3.29 MONO x10^3 (test code = 742-7) 0.58 10*3/uL 0.33-0.92 EOS x10^3 (test code = 711-2) 0.24 10*3/uL 0.03-0.39 BASO x10^3 (test code = 704-7) 0.05 10*3/uL 0.01-0.07 Lab Interpretation (test code = 36016-3) Abnormal [facility] GLUCOSE (AUTOMATED)2022-11-01 22:51:07* Test Item Value Reference Range Interpretation Comme nts POCT GLU (test code = 3594929924) 107 mg/dL 70-110 Lab Interpretation (test cod e = 46161-7) Normal [facility] GLUCOSE (AUTOMATED)2022-11-01 18:04:33* Test Item Value Reference Range Interpretation Comme nts POCT GLU (test code = 1370075223) 148 mg/dL 70-110 H Lab Interpretation (test cod e = 92742-9) Abnormal [facility] GLUCOSE (AUTOMATED)2022-11-01 14:03:41* Test Item Value Reference Range Interpretation Comme nts POCT GLU (test code = 5080815691) 75 mg/dL 70-110 Lab Interpretation (test cod e = 26894-8) [facility] 03:13:45* Test Item Value Reference Range Interpretation Comme nts MAGNESIUM (test code = 1830852728) 0.7 mg/dL 1.7-2.4 L Lab Interpretation (test cod e = 75378-3) [facility]normal [facility] 00:53:02* Test Item Value Reference Range Interpretation Comme nts HGB A1C (test code = 4548-4) 4.2 % 4.0-5.7 BONY (test code = BONY) Reference RangesNormal: <5.7%Prediabetes: 5.7 - 6.4%Diabetes: > 6.5% Lab Interpretation (test code = 22871-9) Normal [facility] (Total Cholesterol, Triglycerides, HDL) - [id number] 00:36:06* Test Item Value Reference Range Interpretation Comme nts CHOL (test code = 3667683505) 108 mg/dL 120-200 L HDL (test code = 0512502860) 25 mg/dL See_Comment L [Automated messa ge] The system which generated this result transmitted reference range: >=50. The reference range was not used to interpret this result as normal/abnormal. HDLC RATIO (test code = 3912662364) See_Comment [Automated messa ge] The system which generated this result transmitted reference range: <=4.5. The reference range was not used to interpret this result as normal/abnormal. TRIG (test code = 9879545460) 168 mg/dL 30-170 LDL CHOL (test code = 27318-9) 49 mg/dL See_Comment [Automated [employer] ge] The system which generated this result transmitted reference range: <=160. The reference range was not used to interpret this result as normal/abnormal. VLDL (test code = 6495216452) 34 mg/dL 5-60 Lab Interpretation (test code = 71978-7) Abnormal [facility]. METABOLIC PANEL (49170)2022-10-31 16:48:46* Test Item Value Reference Range Interpretation Comme nts NA (test code = 0716349608) 138 mmol/L 135-145 K (test code = 2926504229) 3.0 mmol/L 3.5-5.0 L CL (test code = 2457906099) 106 mmol/L 98-108 CO2 TOTAL (test code = 4474506529) 25 mmol/L 23-31 AGAP (test code = 9994202873) 2-16 BUN (test code = 9932218962) 16 mg/dL 7-23 GLUCOSE (test code = 3561547554) 79 mg/dL 70-110 CREATININE (test code = 3491095576) 1.24 mg/dL 0.50-1.04 H TOTAL BILI (test code = 9662405712) 0.9 mg/dL 0.1-1.1 CALCIUM (test code = 5470930835) 8.5 mg/dL 8.6-10.6 L T PROTEIN (test code = 5918969787) 5.6 g/dL 6.3-8.2 L ALBUMIN (test code = 4929098453) 2.8 g/dL 3.5-5.0 L ALK PHOS (test code = 4595537820) 51 U/L 34-122 ALTv (test code = 1742-6) 17 U/L 5-35 AST(SGOT) (test code = 5899649627) 35 U/L 13-40 eGFR (test code = 7407456452) mL/min/1.73m2 BONY (test code = BONY) Association of [...] or abnormalities in imaging tests). Lab Interpretation (test code = 67851-0) Abnormal [facility] WITH [id number] 16:33:02* Test Item Value Reference Range Interpretation Comme nts WBC (test code = 6690-2) See_Comment H [Automated message] The system which generated this result transmitted reference range: 4.30 - 11.10 10*3/?L. The reference range was not used to interpret this result as normal/abnormal. RBC (test code = 789-8) See_Comment L [Automated message] The system which generated this result transmitted reference range: 3.93 - 5.25 10*6/?L. The reference range was not used to interpret this result as normal/abnormal. HGB (test code = 718-7) 10.0 g/dL 11.6-15.0 L HCT (test code = 4544-3) 29.9 % 35.7-45.2 L MCV (test code = 787-2) 94.3 fL 80.6-95.5 MCH (test code = 785-6) 31.5 pg 25.9-32.8 MCHC (test code = 786-4) 33.4 g/dL 31.6-35.1 RDW-SD (test code = 04347-0) 55.0 fL 39.0-49.9 H RDW-CV (test code = 788-0) 15.8 % 12.0-15.5 H PLT (test code = 777-3) See_Comment [Automated message] The system which generated this result transmitted reference range: 166 - 358 10*3/?L. The reference range was not used to interpret this result as normal/abnormal. MPV (test code = 23191-7) 11.5 fL 9.5-12.9 NRBC/100 WBC (test code = 1077646914) See_Comment [Automated message] The system which generated this result transmitted reference range: 0.0 - 10.0 /100 WBCs. The reference range was not used to interpret this result as normal/abnormal. NRBC x10^3 (test code = 7074323262) See_Comment [Automated message] The system which generated this result transmitted reference range: 10*3/?L. The reference range was not used to interpret this result as normal/abnormal. GRAN MAT (NEUT) % (test code = 770-8) 83.0 % IMM GRAN % (test code = [id number]) 0.80 % LYMPH % (test code = 736-9) 8.0 % MONO % (test code = 5905-5) 6.5 % EOS % (test code = 713-8) 1.2 % BASO % (test code = 706-2) 0.5 % GRAN MAT x10^3(ANC) (test code = [id number]) 11.06 10*3/uL 1.88-7.09 H IMM GRAN x10^3 (test code = [id number]) 0.11 10*3/uL 0.00-0.06 H LYMPH x10^3 (test code = 731-0) 1.07 10*3/uL 1.32-3.29 L MONO x10^3 (test code = 742-7) 0.86 10*3/uL 0.33-0.92 EOS x10^3 (test code = 711-2) 0.16 10*3/uL 0.03-0.39 BASO x10^3 (test code = 704-7) 0.07 10*3/uL 0.01-0.07 Lab Interpretation (test code = 83604-1) Abnormal [facility] GLUCOSE (AUTOMATED)2022-07-17 14:01:47* Test Item Value Reference Range Interpretation Comme nts POCT GLU (test code = 9406700306) 92 mg/dL 70-110 Lab Interpretation (test cod e = 55251-0) Normal [facility] GLUCOSE (AUTOMATED)2022-07-17 14:01:47* Test Item Value Reference Range Interpretation Comme nts POCT GLU (test code = 9661796360) 92 mg/dL 70-110 Lab Interpretation (test cod e = 70830-3) Normal [facility] URINALYSIS, [id number] 19:19:00 * Test Item Value Reference Range Interpretation Comme nts POCT U SP GRAV (test code = 3255) 1.015 mg/dl 1.005-1.025 POCT PH U (test code = 3254) 5.5 mg/dl 5-8 POCT U LEUK EST (test code = 3263) Small Negative - Negative POCT U NIT (test code = 3262) Negative Negative - Negative POCT U PROT (test code = 3259) Trace Negative - Negative POCT U GLU (test code = 3256) Negative Negative - Negative POCT U KETONE (test code = 3258) Negative Negative - Negative POCT U UROBILI (test code = 3260) 1.0 mg/dl 0.2-1 POCT U BILI (test code = 3261) Negative Negative - Negative POCT U BLD (test code = 3257) Trace-intact Negative - Negative POCT U COLOR (test code = 3266) Yellow POCT U APPEAR (test code = 3267) Clear Lab Interpretation (test code = 99193-7) Abnormal [facility] Notes Date/Time Note Provider Source 2024-08-23 11:21:40 Images from the original note were not included. Notes: Last Refilled: Name from pharmacy: ONDANSETRON ODT 4 MG TABLET Will file in chart as: ONDANSETRON 4 mg disintegrating tablet Sig: TAKE 1 TABLET BY MOUTH EVERY 8 HOURS NEEDED FOR NAUSEA AND VOMITING . Disp: 30 tablet Refills: 0 (Pharmacy requested: Not specified) Start: 08/21/2024 Class: eRX For: Diarrhea, unspecified type Last ordered: 3 months ago (05/10/2024) by Isaias Henson MD Last refill: 05/10/2024 Rx #: [id number] Anti-nausea [id number]/21/2024 12:59 PM Protocol Details This refill cannot be delegated Manual Review: Women's Health providers only allowed to refill requests. Valid encounter within last 12 months [facility] be [facility] at: [id number] [address] Recent Visits Date Type Provider Dept 06/28/24 Office Visit Isaias Henson MD [facility] 03/24/24 Office Visit Isaias Henson MD [facility] 02/18/24 Office Visit Isaias Henson MD [facility] 12/17/23 Office Visit Isaias Henson MD [facility] 08/28/23 Office Visit Isaias Henson MD [facility] 06/11/23 Office Visit Isaias Henson MD [facility] 03/05/23 Office Visit Isaias Henson MD [facility] Showing recent visits within past 540 days with a meds authorizing provider and meeting all other requirements Future Appointments No visits were found meeting these conditions. Showing future appointments within next 150 days with a meds authorizing provider and meeting all other requirements Brigitte Barbosa MA [facility] 2024-07-27 14:59:32 Notes: please review and advise Last Refilled: amLODIPine 5 mg tablet 90 tablet 0 12/17/2023 -- -- Sig: Take 1 tablet by mouth in the morning. Sent to pharmacy as: amLODIPine 5 mg tablet (NORVASC) Class: eRX Route: Oral Order: [id number] Date/Time Signed: 12/17/2023 12:46 E-Prescribing Status: Receipt confirmed by pharmacy (12/17/2023 12:46 PM WASTE RECLAIMER) Recent Visits Date Type Provider Dept 06/28/24 Office Visit Isaias Henson MD [facility] 03/24/24 Office Visit Isaias Henson MD [facility] 02/18/24 Office Visit Isaias Henson MD [facility] 12/17/23 Office Visit Isaias Henson MD [facility] 08/28/23 Office Visit Isaias Henson MD [facility] 06/11/23 Office Visit Isaias Henson MD [facility] 03/05/23 Office Visit Isaias Henson MD [facility] Showing recent visits within past 540 days with a meds authorizing provider and meeting all other requirements Future Appointments No visits were found meeting these conditions. Showing future appointments within next 150 days with a meds authorizing provider and meeting all other requirements [facility] 2024-06-28 15:00:00 Images from the original note were not included. Venipuncture collection performed by clean technique on the right anticubitus. Total of 2 attempts were made. Slight pressure and a bandage/dressing were applied to the site(s). The patient experienced no complications. The following specimens were processed according to instructions and sent to [facility] laboratories per lab order on 06/28/2024: LT BLUE SST 1 RED LAV 2 PPT DK GREEN (LiHep) DK GREEN (SodH) VENEGAS DK BLUE (K2) DK BLUE (S) ACD Blood Culture NIPT/NTD Cheyanne Jordan [facility] 2024-06-28 13:06:09 Last Refilled: Disp Refills Start End NICOLÁS pantoprazole 40 mg EC tablet 90 tablet 1 12/17/2023 -- -- Sig: Take 1 tablet by mouth every morning. Sent to pharmacy as: pantoprazole 40 mg tablet,delayed release (PROTONIX) Class: eRX Route: Oral Order: [id number] Date/Time Signed: 12/17/2023 12:46 E-Prescribing Status: Receipt confirmed by pharmacy (12/17/2023 12:46 PM WASTE RECLAIMER) Notes: Recent Visits Date Type Provider Dept 03/24/24 Office Visit Isaias Henson MD [facility] 02/18/24 Office Visit Isaias Henson MD [facility] 12/17/23 Office Visit Isaias Henson MD [facility] 08/28/23 Office Visit Isaias Henson MD [facility] 06/11/23 Office Visit Isaias Henson MD [facility] 03/05/23 Office Visit Isaias Henson MD [facility] 01/08/23 Office Visit Isaias Henson MD [facility] Showing recent visits within past 540 days with a meds authorizing provider and meeting all other requirements Today's Visits Date Type Provider Dept 06/28/24 Appointment Isaias Henson MD [facility] Showing today's visits with a meds authorizing provider and meeting all other requirements Future Appointments No visits were found meeting these conditions. Showing future appointments within next 150 days with a meds authorizing provider and meeting all other requirements Milly Akhtar RN [facility] 2024-05-24 16:39:48 Images from the original note were not included. Requested Renewals Name from pharmacy: HYDRALAZINE 10 MG TABLET Will file in chart as: HYDRALAZINE 10 mg tablet Sig: TAKE 1 TABLET BY MOUTH EVERY 8 HOURS FOR 30 DAYS Disp: 270 tablet Refills: 1 Start: 05/24/2024 Class: eRX For: Essential hypertension Last ordered: 8 months ago (09/22/2023) by Isaias Henson MD Last refill: 05/04/2024 Rx #: [id number] Cardiovascular: Vasodilators [id number]/24/2024 02:22 PM Protocol Details Cr in normal range and within 360 days Valid encounter within last 12 months Name from pharmacy: METOPROLOL SUCC ER 50 MG TAB Will file in chart as: METOPROLOL SUCCINATE XL 50 mg 24 hr tablet Sig: TAKE 1 TABLET BY MOUTH EVERY DAY IN THE MORNING Disp: 90 tablet Refills: 0 (Pharmacy requested: Not specified) Start: 05/24/2024 Class: eRX For: Hypotension, unspecified hypotension type Last ordered: 5 months ago (12/17/2023) by Isaias Henson MD Last refill: 05/04/2024 Rx #: [id number] Cardiovascular: Beta Blockers Ufrkkt6805/24/2024 02:22 PM Protocol Details Valid encounter within last 12 months Heart rate within normal limits and completed in the last 12 months Name from pharmacy: FUROSEMIDE 40 MG TABLET Will file in chart as: FUROSEMIDE 40 mg tablet Sig: TAKE 1 TABLET BY MOUTH EVERY DAY IN THE MORNING Disp: 90 tablet Refills: 0 (Pharmacy requested: Not specified) Start: 05/24/2024 Class: eRX For: Essential hypertension Last ordered: 2 months ago (03/21/2024) by Isaias Henson MD Last refill: 05/18/2024 Rx #: [id number] Cardiovascular: Loop Diuretics Bfwowu3205/24/2024 02:22 PM Protocol Details Cr in normal range and within 180 days Valid encounter within last 12 months K in normal range and within 180 days To be [facility] at: [id number] CREATININE Date Value 02/11/2024 2.53 mg/dL (H) 07/19/2004 0.89 MG/DL Recent Visits Date Type Provider Dept 03/24/24 Office Visit Isaias Henson MD [facility] 02/18/24 Office Visit Isaias Henson MD [facility] 12/17/23 Office Visit Isaias Henson MD [facility] 08/28/23 Office Visit Isaias Henson MD [facility] 06/11/23 Office Visit Isaias Henson MD [facility] 03/05/23 Office Visit Isaias Henson MD [facility] 01/08/23 Office Visit Isaias Henson MD [facility] Showing recent visits within past 540 days with a meds authorizing provider and meeting all other requirements Future Appointments Date Type Provider Dept 06/16/24 Appointment Isaias Henson MD [facility] Showing future appointments within next 150 days with a meds authorizing provider and meeting all other requirements [facility] 2024-05-20 16:55:25 Recent Visits Date Type Provider Dept 03/24/24 Office Visit Isaias Henson MD [facility] 02/18/24 Office Visit Isaias Henson MD [facility] 12/17/23 Office Visit Isaias Henson MD [facility] 08/28/23 Office Visit Isaias Henson MD [facility] 06/11/23 Office Visit Isaias Henson MD [facility] 03/05/23 Office Visit Isaias Henson MD [facility] 01/08/23 Office Visit Isaias Henson MD [facility] Showing recent visits within past 540 days with a meds authorizing provider and meeting all other requirements Future Appointments Date Type Provider Dept 06/16/24 Appointment Isaias Henson MD [facility] Showing future appointments within next 150 days with a meds authorizing provider and meeting all other requirements Last refill was Disp Refills Start End NICOLÁS diphenoxylate-atropine 2.5-0.025 mg tablet 20 tablet 0 03/24/2024 -- -- Sig: Take 1 tablet by mouth every 6 (six) hours as needed for Other (diarrhea). Sent to pharmacy as: diphenoxylate-atropine 2.5 mg-0.025 mg tablet (LOMOTIL) Yoel Ho MA [facility] 2024-05-10 08:01:22 Last Refilled: ondansetron 4 mg disintegrating tablet 30 tablet 0 02/18/2024 -- No Sig: Take 1 tablet by mouth every 8 (eight) hours as needed for Nausea and Vomiting (N/V). Sent to pharmacy as: ondansetron 4 mg disintegrating tablet (ZOFRAN-ODT) Class: eRX Route: Oral Order: [id number] Date/Time Signed: 02/18/2024 13:48 E-Prescribing Status: Receipt confirmed by pharmacy (02/18/2024 1:48 PM CDT) Recent Visits Date Type Provider Dept 03/24/24 Office Visit Isaias Henson MD [facility] 02/18/24 Office Visit Isaias Henson MD [facility] 12/17/23 Office Visit Isaias Henson MD [facility] 08/28/23 Office Visit Isaias Henson MD [facility] 06/11/23 Office Visit Isaias Henson MD [facility] 03/05/23 Office Visit Isaias Henson MD [facility] 01/08/23 Office Visit Isaias Henson MD [facility] Showing recent visits within past 540 days with a meds authorizing provider and meeting all other requirements Future Appointments Date Type Provider Dept 06/16/24 Appointment Isaias Henson MD [facility] Showing future appointments within next 150 days with a meds authorizing provider and meeting all other requirements [facility] 2024-04-28 10:50:05 Received client coordination report. Placed in the providers box. Skylar Ryan [facility] 2024-04-16 07:11:34 Last Refilled: Disp Refills Start End NICOLÁS apixaban (ELIQUIS) 2.5 mg tablet 60 tablet 2 12/17/2023 -- No Sig: Take 1 tablet by mouth in the morning and 1 tablet in the evening. Indications: atrial fibrillation Sent to pharmacy as: apixaban 2.5 mg tablet (Eliquis) Class: eRX Notes to Pharmacy: testing Route: Oral Order: [id number] Date/Time Signed: 12/17/2023 12:46 E-Prescribing Status: Receipt confirmed by pharmacy (12/17/2023 12:46 PM WASTE RECLAIMER) Recent Visits Date Type Provider Dept 03/24/24 Office Visit Isaias Henson MD [facility] 02/18/24 Office Visit Isaias Henson MD [facility] 12/17/23 Office Visit Isaias Henson MD [facility] 08/28/23 Office Visit Isaias Henson MD [facility] 06/11/23 Office Visit Isaias Henson MD [facility] 03/05/23 Office Visit Isaias Henson MD [facility] 01/08/23 Office Visit Isaias Henson MD [facility] 10/30/22 Office Visit Isaias Henson MD [facility] Showing recent visits within past 540 days with a meds authorizing provider and meeting all other requirements Future Appointments Date Type Provider Dept 06/16/24 Appointment Isaias Henson MD [facility] Showing future appointments within next 150 days with a meds authorizing provider and meeting all other requirements T [facility] 2024-03-24 13:15:00 Addended by: ISAIAS HENSON MD on: 03/24/2024 01:31 PM Modules accepted: Orders T [facility] 2024-03-23 15:10:51 Spoke to DOP Mrs. Mcmillan and scheduled patient appt for possible ear infections on 03/24/24 at 1:15pm She verbalized understanding. T [facility] 2024-03-23 15:05:23 Copied from [facility] #[id number]. Topic: Clinical - Medical Advice >> Mar 23, 2024 3:04 PM Patient Stock Or Delivery Clerk wrote: Yeol Trevino is a 83 year old female is calling with her daughter.pt daughter states that the pt had an ear infection and it was not called in.states the pt pain and clogged Arely A Matias 03/23/24 3:05 PM Arely Niko Matias [facility] 2024-03-21 10:15:22 Last refill was Disp Refills Start End NICOLÁS diphenoxylate-atropine 2.5-0.025 mg tablet 20 tablet 0 02/18/2024 -- No Sig: Take 1 tablet by mouth every 6 (six) hours as needed for Other (diarrhea). Sent to pharmacy as: diphenoxylate-atropine 2.5 mg-0.025 mg tablet (LOMOTIL) Class: eRX Recent Visits Date Type Provider Dept 02/18/24 Office Visit Isiaas Henson MD [facility] 12/17/23 Office Visit Isaias Henson MD [facility] 08/28/23 Office Visit Isaias Henson MD [facility] 06/11/23 Office Visit Isaias Henson MD [facility] 03/05/23 Office Visit Isaias Henson MD [facility] 01/08/23 Office Visit Isaias Henson MD [facility] 10/30/22 Office Visit Isaias Henson MD [facility] Showing recent visits within past 540 days with a meds authorizing provider and meeting all other requirements Future Appointments Date Type Provider Dept 06/16/24 Appointment Isaias Henson MD [facility] Showing future appointments within next 150 days with a meds authorizing provider and meeting all other requirements ' Yoel Ho MA [facility] 2024-02-12 15:41:43 Summary: ER Outreach Care Transition CM attempted to reach patient via telephone x2. No response and voicemail is full. Unable to leave message. Miriam Jain RN, BSN Space Controller-Transitions of Care [phone] Miriam Jain RN [facility] 2024-02-12 08:51:04 Summary: ER Outreach Care Transition CM attempted to reach patient via telephone. No response and voicemail is full. Unable to leave message. Miriam Jain RN, BSN Space Controller-Transitions of Care [phone] [facility] 2024-02-11 16:57:26 Pt given printed and verbal discharge instructions regarding diarrhea, encouraged hydration, 0 Prescriptions provided Pt verbalized understanding of instructions, pt awake alert oriented, resp reg unlabored, skin w/d, color appropriate for race, moves all ext well,pt encouraged to follow up with pcp. Advised to seek medical attention for new/prolonged/worsening of symptoms, Symptoms improved. No adverse reaction to meds given in ER noted upon discharge PIV d'cd, dressing to site, catheter in tact. Awake, alert oriented, resp reg unlabored, skin w/d, pt leaving with rollator with steady gait, in no apparent distress, Dee Russ RN [facility] 2024-02-11 16:22:15 Patient refused straight catheter. [facility] 2024-02-11 14:19:41 Patient here with daughter for diarrhea and vomiting on and off for about 3 weeks. Patient lives alone and uses a rollator to get from her room to her bathroom. Daughter states she gave the patient one of her own Zofran ODT this morning and patient reports that it helped "a lot". T Luis Brar RN [facility] 2024-02-11 13:28:36 Spoke to Robb Medina and verified the patient has been actively vomiting and diarrhea for over two weeks now. She is weak and fatigued, they report they cannot get the patient in to the clinic. Has a hx of cdiff, and heart issues. Advised Mrs. Medina per Dr. Henson to take th patient to the ER or call EMS as we are concerned for cdiff and/or electrolyte imbalances which can cause heart palpitations and more serious issues. She verbalized understanding. Antonia Figueroa LVN 02/11/2024 1:34 PM [facility] 2024-02-11 13:12:09 Yoel Trevino is a 83 year old female Daughter is on the phone and is trying to get her to her appt but patient is not able to bend, her knees, she can't use both legs to get in the truck Patient unable to use a step ladder to get into the truck Daughter states patient has had diarrhea x3 weeks nausea, very lethargic, has trouble keeping down food Daughter would like to see if provider will do a televisit for today's appt, I call clinic and spoke with Maria Del Carmen stated she is waiting on approval from Dr. Henson Please advise [phone] Declan Medina (daughter) Saira Niko Handy [facility] 2024-02-05 15:49:09 Contacted DOP Robb Medina and advised her per Dr. Henson the patient needs to be evaluated in clinic. They were wanting first available. It was scheduled for Fri02/11/24 at 145 pm. Advised to us Urgent Care if s/s worsen. She verbalized understanding [facility] 2024-02-05 15:37:42 Needs to be evaluated [facility] 2024-02-05 10:44:06 Daughter of patient is returning call from the clinic. Please call back [phone] Triston Serra [facility] 2024-02-05 08:38:32 2nd ATC-LVM to callback Laurel Richardson LVN 02/05/2024 Laurel Richardson BACK GRAY CLOTH WASHER [facility] 2024-02-04 16:38:38 Attempted to contact patient. No answer. Left message to call back. Antonia Figueroa LVN 02/04/2024 4:38 PM [facility] 2024-02-04 16:13:53 Copied from [facility] #[id number]. Topic: Clinical - Medical Advice >> Feb 04, 2024 4:11 PM Patient Stock Or Delivery Clerk wrote: Yoel Trevino is a 83 year old female Pt daughter Robb Medina (Daughter) is calling to report pt symptoms of diarrhea, vomiting, and nausea for 2 weeks. Robb states that she is requesting a call back for medical advice for a possible prscription to relieve her symptoms of upset stomach. Please advise. P: Renita Bonilla [facility] 2023-11-13 15:40:40 Images from the original note were not included. Last Refilled: 09/10/23, 09/22/23 Notes: [facility]/pharmacy #[id number] Recent Visits Date Type Provider Dept 08/28/23 Office Visit Isaias Henson MD [facility] 06/11/23 Office Visit Isaias Henson MD [facility] 03/05/23 Office Visit Isaias Henson MD [facility] 01/08/23 Office Visit Isaias Henson MD [facility] 10/30/22 Office Visit Isaias Henson MD [facility] Showing recent visits within past 540 days with a meds authorizing provider and meeting all other requirements Future Appointments Date Type Provider Dept 12/10/23 Appointment Isaias Henson MD [facility] Showing future appointments within next 150 days with a meds authorizing provider and meeting all other requirements Name from pharmacy: METOPROLOL SUCC ER 50 MG TAB Will file in chart as: METOPROLOL SUCCINATE XL 50 mg 24 hr tablet Sig: TAKE 1 TABLET BY MOUTH EVERY DAY IN THE MORNING Disp: 90 tablet Refills: Not specified Start: 11/13/2023 Class: eRX For: Hypotension, unspecified hypotension type Last ordered: 2 months ago (09/10/2023) by Isaias Henson MD Last refill: 09/10/2023 Rx #: [id number] Cardiovascular: Beta Blockers Firjzr0711/13/2023 02:52 PM Protocol Details Valid encounter within last 12 months Heart rate within normal limits and completed in the last 12 months Name from pharmacy: AMLODIPINE BESYLATE 5 MG TAB Will file in chart as: AMLODIPINE 5 mg tablet Sig: TAKE 1 TABLET BY MOUTH EVERY DAY Disp: 90 tablet Refills: 0 (Pharmacy requested: Not specified) Start: 11/13/2023 Class: eRX For: Essential hypertension Last ordered: 1 month ago (09/22/2023) by Isaias Henson MD Last refill: 09/22/2023 Rx #: [id number] Calcium Channel Blockers Rjbowu7211/13/2023 02:52 PM Protocol Details Valid encounter within last 12 months To be filled at: [facility]/pharmacy #[id number] - [address] [facility] 2023-08-12 16:05:20 Formatting of this n ote might be different from the original. 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 Pt daughter calling to get a prescription sent to a different pharmacy. [facility] in [place]. HYDROcodone-acetaminophen 5-325 mg tablet Jazmín Giron [facility] 2023-08-07 14:32:14 Formatting of this n ote is different from the original. Images from the original note were not included. Last Refilled: 07/07/23 Notes: [facility]/pharmacy #[id number] Recent Visits Date Type Provider Dept 06/11/23 Office Visit Isaias Henson MD [facility] 03/05/23 Office Visit Isaias Henson MD [facility] 01/08/23 Office Visit Isaias Henson MD [facility] 10/30/22 Office Visit Isaias Henson MD [facility] 04/03/22 Office Visit Isaias Henson MD [facility] Showing recent visits within past 540 days with a meds authorizing provider and meeting all other requirements Future Appointments Date Type Provider Dept 12/10/23 Appointment Isaias Henson MD [facility] Showing future appointments within next 150 days with a meds authorizing provider and meeting all other requirements HYDROcodone-acetaminophen 5-325 mg tablet Sig: Take 1 tablet by mouth 2 (two) times daily as needed for Pain (scale 4-6). Indications: chronic pain Disp: 60 tablet Refills: 0 Start: 08/07/2023 Earliest Fill Date: 08/07/2023 Class: eRX For: Trigeminal neuralgia of right side of face Last ordered: 1 month ago (07/07/2023) by Iasias Henson MD Controlled Substance Failed 08/07/2023 02:13 PM Protocol Details Valid encounter within last 3 months This refill cannot be delegated Pain agreement on file [id number] [address] [place] [address] [facility] 2023-07-08 09:48:44 Formatting of this n ote might be different from the original. Home Health Certification and POC approved and ready for provider signature in [facility]. Certification period: 07/03/23-08/31/23 Please review and sign if appropriate. Herminia Salinas RN [facility] 2023-07-07 08:52:38 Formatting of this n ote is different from the original. HYDROcodone-acetaminophen 5-325 mg tablet 60 tablet 0 06/11/2023 Last Refilled: 06/11/23 Recent Visits Date Type Provider Dept 06/11/23 Office Visit Isaias Henson MD [facility] 03/05/23 Office Visit Isaias Henson MD [facility] 01/08/23 Office Visit Isaias Henson MD [facility] 10/30/22 Office Visit Isaias Henson MD [facility] 04/03/22 Office Visit Isaias Henson MD [facility] Showing recent visits within past 540 days with a meds authorizing provider and meeting all other requirements Future Appointments No visits were found meeting these conditions. Showing future appointments within next 150 days with a meds authorizing provider and meeting all other requirements Herminia Salinas RN [facility] 2023-06-16 12:27:30 Formatting of this n ote might be different from the original. Pt dropped off med list, Placed in provider basket Skylar Jorgensen [facility]
[2024-09-06] MEDS ORDERED: DIPHENHYDRAMINE 50 MG/ML VIAL ONE (13:36)
[2024-09-06] MEDS ORDERED: METOCLOPRAMIDE 10 MG/2mL INJ ONE (13:36)
[2024-09-06 13:55] LABS: Absolute Basophils 0.1 K/uL (0-0.5); Absolute Eosinophils 0.2 K/uL (0-0.5); Absolute Lymphocytes (CBC) 1.7 K/uL (0.7-4.9); Absolute Monocytes 0.5 K/uL (0.1-1.3); Absolute Neutrophil 2.6 K/uL (1.8-8.0); Basophils % 1.3 % (0-1.3); Eosinophils % 3.9 % (0-4.4); Hemoglobin 10.6 g/dL (12.0-15.0); Lymphocytes % 33.8 % (15.3-44.8); MCH 32.7 pg (27.0-35.0); MCHC 34.1 g/dL (32.0-36.0); MPV 9.2 fL (7.6-11.3); Monocytes % 9.9 % (3.3-12.3); Neutrophils % 51.1 % (41.7-73.7); Platelets 188 thou/uL (152-406); RBC Red Blood Cell Count 3.23 M/uL (3.86-4.86); Red Cell Distribution Width 15.7 % (12.1-15.2)
[2024-09-06 13:59] LABS: Protime INR 1.44
[2024-09-06 14:15] LABS: Anion Gap 4.8 mEq/L (5.0-15.0); Potassium 3.8 mEq/L (3.5-5.1)
[2024-09-06 14:19] LABS: Troponin High Sensitivity 92.9 pg/mL (<58.9)
[2024-09-06 14:25] LABS: Specific Gravity 1.012 (1.005-1.030); Sqamous Epithelial <5 /HPF (None Seen); Transitional Epithelial <5 /HPF (None Seen); Urine Bacteria None Seen /HPF (<20); Urine Bilirubin NEGATIVE (Negative); Urine Blood Negative (Negative); Urine Clarity Clear (Clear); Urine Color Light-Yellow (Yellow); Urine Culture Reflex Order NOT NEEDED; Urine Glucose NEGATIVE (Negative); Urine Ketones NEGATIVE (Negative); Urine Micro Reflex YN NO BILL MICROSCOPIC; Urine Nitrite NEGATIVE (Negative); Urine Protein NEGATIVE (Negative); Urine RBC <5 /HPF (None Seen); Urine Urobilinogen Normal (Normal)
[2024-09-06] MEDS ORDERED: ASPIRIN 81 MG CHEWABLE TABLET ONE (14:27)
[2024-09-06] MEDS ORDERED: ENOXAPARIN 60 MG/0.6 ML SQ ONE (14:27)
--- NOTE | 2024-09-06 15:00 | RAD REPORT ---
EXAMINATION: ONE VIEW CHEST XR CLINICAL INDICATION: Female, 84 years old.,COUGH TECHNIQUE: Frontal chest projection is submitted. Examination is limited by patient positioning and t echnique. COMPARISON: 12/16/2022 FINDINGS: Decreased inspiratory effort limits evaluation. Left chest wall pacer/AICD in place. The lungs are cl ear of new opacities. Upper lobe predominant reticular opacities, stable. No pneumothorax or sizable effusion. The heart is normal in size. IMPRESSION: No acute intrathoracic abnormalities.
[2024-09-06] MEDS ORDERED: MORPHINE 4 MG/ML SYR ONE (15:06)
--- NOTE | 2024-09-06 15:28 | RAD REPORT ---
EXAM: Head Brain Wo Cont HISTORY: DIZZINESS COMPARISON: 11/25/2011 TECHNIQUE: Multiple contiguous axial images were obtained for a CT of the brain without contrast. Sag ittal and coronal reformats were performed. One or more of the following dose reduction techniques were used: Automated exposure control, adjus tment of the mA and kV according to patient size, and iterative reconstruction. Unless otherwise specified, incidental findings do not require dedicated imaging follow-up. FINDINGS: No evidence of hydrocephalus, intracranial hemorrhage, or extra-axial fluid collection. Moderate brain atrophy with moderate periventricular and deep white matter chronic microvascular isc hemic changes present. The calvarium is intact. The visualized paranasal sinuses and mastoid air cells are essentially clear . IMPRESSION: No evidence of acute intracranial abnormality.
--- NOTE | 2024-09-06 15:31 | ER ---
Nurse's Notes [facility] Name: Lucille Padron Age: 84 yrs Sex: Female : 1940 Arrival Date: 09/06/2024 Time: 13:11 Bed 13 Private MD: Diagnosis: NSTEMI;Dizziness and giddiness Presentation: 09/06 13:29 Chief complaint: EMS states: they were toned out for hallucinations x3 weeks and kc6 dizziness x1 day. Coronavirus screen: At this time, the client does not indicate any symptoms associated with coronavirus-19. Ebola Screen: No symptoms or risks identified at this time. Initial Sepsis Screen: Does the patient meet any 2 criteria? No. Patient's initial sepsis screen is negative. Does the patient have a suspected source of infection? No. Patient's initial sepsis screen is negative. Risk Assessment: Do you want to hurt yourself or someone else? Patient reports no desire to harm self or others. Onset of symptoms was September 06, 2024. 13:29 Method Of Arrival: EMS: [facility] 13:29 Acuity: JONATHAN 3 kc6 Historical: - Allergies: 13:31 No Known Allergies; kc6 - PMHx: 13:31 CAD; Congestive heart failure; Hypertensive disorder; NIDDM; kc6 - Immunization history:: Adult Immunizations up to date. - Infectious Disease History:: Denies. - Social history:: Smoking status: Patient denies any tobacco usage or history of. Screenin:32 [facility] ED Fall Risk Assessment (Adult) History of falling in the last 3 months, kc6 including since admission No falls in past 3 months (0 pts) Confusion or Disorientation No (0 pts) Intoxicated or Sedated No (0 pts) Impaired Gait Yes (1 pt) Mobility Assist Device Used Yes (1 pt) Altered Elimination No (0 pt) Score/Fall Risk Level 0 - 2 = Low Risk Oriented to surroundings. Abuse screen: Denies threats or abuse. Denies injuries from another. Nutritional screening: No deficits noted. Tuberculosis screening: No symptoms or risk factors identified. Assessment: 13:32 General: Appears in no apparent distress. comfortable, well groomed, well developed, kc6 Behavior is calm, cooperative, appropriate for age. Pain: Complains of pain in chest and abdomen. Neuro: Level of Consciousness is awake, alert, obeys commands, Oriented to person, place, time, situation, Appropriate for age Aerosol Line Operator are equal bilaterally Moves all extremities. Full function Speech is normal, Facial symmetry appears normal, Pupils are PERRLA, Intact Reports dizziness. Cardiovascular: Capillary refill < 3 seconds Rhythm is atrial pacer. Respiratory: Airway is patent Trachea midline Respiratory effort is even, unlabored, Respiratory pattern is regular, symmetrical. GI: Reports upper abdominal pain. : Reports urinary frequency. EENT: No signs and/or symptoms were reported regarding the EENT system. Derm: No signs and/or symptoms reported regarding the dermatologic system. Skin is intact, is healthy with good turgor, Skin is pink, warm \T\ dry. Musculoskeletal: No signs and/or symptoms reported regarding the musculoskeletal system. Circulation, motion, and sensation intact. Capillary refill < 3 seconds, Range of motion: intact in all extremities. 15:05 Reassessment: Patient appears in no apparent distress at this time. No changes from kc6 previously documented assessment. Patient and/or family updated on plan of care and expected duration. Pain level reassessed. Patient is alert, oriented x 3, equal unlabored respirations, skin warm/dry/pink. Vital Signs: 13:29 BP 177 / 80; Pulse 60; Resp 16 S; Temp 98.1(O); Pulse Ox 100% on R/A; Weight 69.85 kg kc6 (M); Height 5 ft. 4 in. (R); 14:14 BP 176 / 73; Pulse 62; Resp 14 S; Pulse Ox 100% on R/A; kc6 14:35 BP 159 / 60; kc6 15:05 BP 160 / 61; Pulse 63; Resp 16 S; Pulse Ox 99% on R/A; kc6 13:29 Body Mass Index 26.43 (69.85 kg, 162.56 cm) kc6 ED Course: 13:19 Patient arrived in ED. ec2 13:20 Balaji Newell MD is Attending Physician. ec2 13:22 Debra Bui RN is Primary Nurse. kc6 13:31 Triage completed. kc6 13:31 Arm band placed on. kc6 13:31 Maintain EMS IV. Dressing intact. Good blood return noted. Site clean \T\ dry. Gauge \T\ estevan 6 site: 22G RFA. Patient maintains SpO2 saturation greater than 95% on room air. 13:32 Patient has correct armband on for positive identification. Bed in low position. Call kc light in reach. Side rails up X2. Adult w/ patient. security monitor on. Pulse ox on. NIBP on. Door closed. Noise minimized. Lights dimmed. Warm blanket given. Pillow given. 14:10 Speci-cath kit inserted, using sterile technique, 16 Fr., specimen obtained. returned kc clear yellow urine. Patient tolerated well. 14:29 XRAY Chest (1 view) In Process Unspecified. EDMS 14:41 CT Head Brain wo Cont In Process Unspecified. EDMS 15:05 EKG done, by ED staff, reviewed by Balaji Newell MD. kc6 15:30 Vandana Renae MD is Hospitalizing Provider. ec2 17:01 No provider procedures requiring assistance completed. Patient admitted, IV remains in kc6 place. Administered Medications: 13:48 Drug: metoCLOPramide IVP 10 mg IVP once; over 1 to 2 minutes Route: IVP; Site: right kc6 forearm; 14:21 Follow up: Response: No adverse reaction kc6 13:48 Drug: diphenhydrAMINE IVP 25 mg IVP once Route: IVP; Site: right forearm; kc6 14:20 Follow up: Response: No adverse reaction kc6 14:34 Drug: Aspirin PO Chewable Tablet 324 mg PO once; 81 mg tablets x 4 Route: PO; kc6 15:04 Follow up: Response: No adverse reaction kc6 14:35 Drug: Enoxaparin Sub-Q 1 mg/kg Sub-Q once Route: Sub-Q; Site: abdomen; kc6 15:04 Follow up: Response: No adverse reaction kc6 15:14 Drug: morphine IVP or IV 4 mg IVP once over 4 mins Route: IVP; Infused Over: 4 mins; kc6 Site: right forearm; 15:30 Follow up: Response: No adverse reaction; Pain is decreased; RASS: Alert and Calm (0) kc6 Medication: 17:01 VIS not applicable for this client. kc6 Outcome: 15:31 Decision to Hospitalize by Provider. ec2 17:01 Admitted to Med/surg accompanied by tech, via stretcher, room 208, with chart, kc6 17:01 Condition: good 17:01 Instructed on the need for admit, 17:01 Patient left the ED. kc6 Signatures: Dispatcher [employer] Debra Davis RN RN kc6 Balaji Newell MD MD ec2 Flynn Rubin, Gianfranco nh2 Corrections: (The following items were deleted from the chart) 14:35 14:16 Urine collected: straight cath specimen, clear, nh2 kc6
--- NOTE | 2024-09-06 15:32 | EDPHYS ---
Physician Documentation [facility] Name: Lucille Padron Age: 84 yrs Sex: Female : 1940 Arrival Date: 09/06/2024 Time: 13:11 Bed 13 Private MD: ED Physician Balaji Newell HPI: 09/06 13:25 This 84 yrs old Female presents to ER via Unassigned with complaints of ec2 hallucinations and dizziness. 13:25 Patient arrives today for evaluation of hallucinations and dizziness. Patient reports ec2 that she has been experiencing the symptoms ongoing for several days. Patient reports some dizziness that she reports as room spinning sensation. Reports no fevers or chills. Does endorse nausea without vomiting. No recent illnesses, denies urinary complaints or abdominal pain. Reports no recent falls.. Historical: - Allergies: 13:31 No Known Allergies; kc6 - PMHx: 13:31 CAD; Congestive heart failure; Hypertensive disorder; NIDDM; kc6 - Immunization history:: Adult Immunizations up to date. - Infectious Disease History:: Denies. - Social history:: Smoking status: Patient denies any tobacco usage or history of. ROS: 13:25 Constitutional: as per hpi ec2 Exam: 13:25 Constitutional: GEN: NAD Head: atraumatic Eyes: EOMI Ears: External ears are ec2 normal. CV: regular rate LUNGS: no respiratory distress ABD: non-distended SKIN: no evidence of rashes MSK: no evidence of trauma. Neuro: Cranial nerves II through XII intact, strength intact all 4 extremities, normal [id number] Vital Signs: 13:29 BP 177 / 80; Pulse 60; Resp 16 S; Temp 98.1(O); Pulse Ox 100% on R/A; Weight 69.85 kg kc6 (M); Height 5 ft. 4 in. (R); 14:14 BP 176 / 73; Pulse 62; Resp 14 S; Pulse Ox 100% on R/A; kc6 14:35 BP 159 / 60; kc6 15:05 BP 160 / 61; Pulse 63; Resp 16 S; Pulse Ox 99% on R/A; kc6 13:29 Body Mass Index 26.43 (69.85 kg, 162.56 cm) kc MDM: 13:20 Medical Screening Exam initiated ec2 13:25 Data reviewed: vital signs. ED course: Patient arrives today for evaluation of ec2 dizziness as well as hallucinations. Examination remarkable for well-appearing neuro intact individuals otherwise in no acute distress with a reassuring examination. Will obtain lab work, EKG, CT scan of the head as well as angio of the head and neck. Differential diagnosis includes vertigo, central versus peripheral, ACS, urinary tract infection, electrolyte disturbance, anemia. Will not activate stroke alert given duration of symptoms. . 13:43 ED course: EKG independently reviewed and interpreted by me, shows normal sinus rhythm, ec2 rate of 60, no acute ST segment elevations, intervals are nonactionable.. 14:20 ED course: Patient with Trope elevation, will give full dose aspirin, Lovenox ec2 injection. EKG does have nonspecific changes, no STEMI criteria met. 14:20 ED course: Additionally patient also without any chest pain or difficulty breathing . ec2 15:05 ED course: Patient with some complaints of chest pain, obtain a repeat EKG which is ec2 markedly unchanged compared to initial EKG, has a normal sinus rhythm of 68, no acute STEMI criteria, intervals are nonactionable, does have some slight ST changes in V2 however no contiguous leads changed. Will give the patient IV morphine for pain. . 15:31 ED course: CT scan of the head without any acute intracranial abnormality. Will admit ec2 the patient for dizziness, NSTEMI. Discussed case with the hospitalist, pending admission.. 09/06 13:21 Order name: Basic Metabolic Panel; Complete Time: 14:19 ec2 09/06 13:21 Order name: CBC with Diff; Complete Time: 14:08 ec2 09/06 13:21 Order name: NT PRO-BNP; Complete Time: 14:19 ec2 09/06 13:21 Order name: PT-INR; Complete Time: 14:08 ec2 09/06 13:21 Order name: Troponin HS; Complete Time: 14:19 ec2 09/06 13:21 Order name: UAM; Complete Time: 14:28 ec2 09/06 13:21 Order name: XRAY Chest (1 view); Complete Time: 15:13 ec2 09/06 13:21 Order name: CT Head Brain wo Cont; Complete Time: 15:29 ec2 09/06 13:21 Order name: Cardiac monitoring; Complete Time: 13:34 ec2 09/06 13:21 Order name: EKG - Nurse/Tech; Complete Time: 13:42 ec2 09/06 13:21 Order name: IV Saline Lock; Complete Time: 13:34 ec2 09/06 13:21 Order name: Labs collected and sent; Complete Time: 13:42 ec2 09/06 13:21 Order name: O2 Per Protocol; Complete Time: 13:34 ec2 09/06 13:21 Order name: O2 Sat Monitoring; Complete Time: 13:34 ec2 09/06 13:21 Order name: Cath; Complete Time: 14:15 ec2 Administered Medications: 13:48 Drug: metoCLOPramide IVP 10 mg IVP once; over 1 to 2 minutes Route: IVP; Site: right [facility] forearm; 14:21 Follow up: Response: No adverse reaction 6 13:48 Drug: diphenhydrAMINE IVP 25 mg IVP once Route: IVP; Site: right forearm; 6 14:20 Follow up: Response: No adverse reaction 6 14:34 Drug: Aspirin PO Chewable Tablet 324 mg PO once; 81 mg tablets x 4 Route: PO; kc6 15:04 Follow up: Response: No adverse reaction kc6 14:35 Drug: Enoxaparin Sub-Q 1 mg/kg Sub-Q once Route: Sub-Q; Site: abdomen; kc6 15:04 Follow up: Response: No adverse reaction 6 15:14 Drug: morphine IVP or IV 4 mg IVP once over 4 mins Route: IVP; Infused Over: 4 mins; 6 Site: right forearm; 15:30 Follow up: Response: No adverse reaction; Pain is decreased; RASS: Alert and Calm (0) kc6 Disposition Summary: 09/06/24 15:31 Hospitalization Ordered Notes: Hospitalization Status: Inpatient Admission ec2 Provider: Vandana Renae ec2 Location: Telemetry/MedSurg (Inpatient) ec2 Condition: Stable ec2 Problem: new ec2 Symptoms: have improved ec2 Bed/Room Type: Standard ec2 Room Assignment: 208(09/06/24 16:05) am7 Diagnosis - NSTEMI ec2 - Dizziness and giddiness ec2 Forms: - Medication Reconciliation Form ec2 - SBAR form ec2 - Leadership Thank You Letter ec2 Signatures: Dispatcher [employer] EDMS Debra Bui, RN RN kc6 Balaji Newell MD MD ec2 Piper Leon am7 Corrections: (The following items were deleted from the chart) 13:21 13:21 BASIC METABOLIC PANEL+C.LAB.BRZ ordered. EDMS EDMS 13:21 13:21 CBC+H.LAB.BRZ ordered. EDMS EDMS 13:21 13:21 PROBNP+C.LAB.BRZ ordered. EDMS EDMS 13:21 13:21 PROTIME (+INR)+COAG.LAB.BRZ ordered. EDMS EDMS 13:21 13:21 Troponin High Sensitivity+C.LAB.BRZ ordered. EDMS EDMS 13:21 13:21 Urinalysis W/Microscopic+U.LAB.BRZ ordered. EDMS EDMS 13:21 13:21 Chest Single View+RAD.RAD.BRZ ordered. EDMS EDMS 13:21 13:21 Head Brain Wo Cont+CT.RAD.BRZ ordered. EDMS EDMS 13:21 13:21 Neck Angio+CT.RAD.BRZ ordered. EDMS EDMS 14:30 13:27 Head angio ordered. EDMS EDMS 16:05 15:31 ec2 am7
--- NOTE | 2024-09-06 15:56 | P.HP ---
Certification for Inpatient Patient admitted to: Inpatient With expected LOS: <2 Midnights Practitioner: I am a practitioner with admitting privileges, knowledge of patient current condition, hospital course, and medical plan of care. Services: Services provided to patient in accordance with Admission requirements found in Title 42 Section 412.3 of the Code of Federal Regulations Patient History Date of Service: 09/06/24 Reason for admission: Dizziness History of Present Illness: 84 year old female with past medical history of CAD; Congestive heart failure; Hypertensive disorder; NIDDM, presents to the emergency department for dizziness. She reports dizziness started after eye surgery that has been chronic for the last year. She reports visual and auditory hallucinations over the last 2 months. She reports urinary urgency, incontinence that is chronic.. She reports seeing and hearing neighbors in her apartment who are not there. She denies any suicidal, homicidal thoughts. She reports she lives in her apartment garage of her daughter. Uses a walker at baseline, no reported falls, She denies recent fall, no reported head injury, shortness of breath, chest pain, edema, recent fever, infection. Plan to admit to [facility] for Dizziness, NSTEMI, Visual auditory hallucinations. Allergies No Known Allergies Allergy (Verified 02/17/19 01:26) Home Medications: Aspirin [Aspirin EC 81 MG] 81 mg PO DAILY 02/17/19 Fenofibrate,Micronized [Fenofibrate] 200 mg PO DAILY 02/17/19 PARoxetine HCl [Paroxetine HCl] 40 mg PO DAILY 02/17/19 Pravastatin Sodium 80 mg PO DAILY 02/17/19 carvediloL [Carvedilol] 12.5 mg PO BID 02/17/19 Amlodipine [Norvasc*] 5 mg PO DAILY 10/11/22 Oxybutynin Chloride [Oxybutynin Chloride ER] 5 mg PO DAILY 10/11/22 Apixaban [Eliquis *] 2.5 mg PO BID #60 tab 11/16/22 Furosemide [Lasix*] 40 mg PO DAILY #30 tab 11/16/22 Sacubitril/Valsartan [Entresto 24 mg-26 mg Tablet] 1 tab PO BID #60 tab 11/16/22 Fidaxomicin [Dificid] 200 mg PO BID #20 tab 12/18/22 Potassium Chloride [Klor-Con M20] 20 meq PO DAILY #30 tab 12/18/22 - Past Medical/Surgical History Diabetic: Yes -: HTN -: Non-Insulin Dependent Type 2 Diabetes -: CAD -: HLD -: OAB -: GERD -: Depression -: eye surgery -: cholecystectomy -: partial hysterecomy Psychosocial/ Personal History: Patient lives at home alone. Her daughter lives across the street at helps care for her. - Social History Alcohol use: No CD- Drugs: No Caffeine use: Yes Review of Systems 10-point ROS is otherwise unremarkable General: As per HPI Physical Examination - Physical Exam General: Alert, In no apparent distress, Oriented x3 HEENT: Atraumatic, Normocephalic, PERRLA Neck: Supple, JVD not distended Respiratory: Normal air movement, Diminished Cardiovascular: Normal pulses, Regular rate/rhythm Capillary refill: >2 Seconds Gastrointestinal: Normal bowel sounds, Soft and benign, Other (obese) Musculoskeletal: No clubbing, No swelling Integumentary: No rashes, No breakdown Neurological: Normal speech, Normal strength at 5/5 x4 extr, Sensation intact, Cranial nerves 3-12 intact - Studies Laboratory Data (last 24 hrs) 09/06/24 09/06/24 09/06/24 13:43 13:43 13:43 WBC 5.20 Hgb 10.6 L Hct 31.0 L Plt Count 188 PT 16.0 H INR 1.44 Sodium 141 Potassium 3.8 BUN 26 H Creatinine 1.82 H Glucose 101 Assessment and Plan - Problems (Diagnosis) (1) Dizziness Current Visit: Yes Status: Acute Comment: Echo ordered, telemetry, Fall precautions, CT of the head no acute abnormality Plan: Echo ordered, telemetry, Fall precautions, CT of the head no acute abnormality (2) NSTEMI (non-ST elevated myocardial infarction) Current Visit: Yes Status: Acute Plan: Trend troponin, echo ordered, Gentle diuretics, Consider cardiology consult, Therapeutic Lovenox Trend BMP (3) Hallucinations Current Visit: Yes Status: Acute (4) Hallucinations, visual Current Visit: Yes Status: Acute Plan: Psychiatric consult, Denies suicidal, homicidal thoughts, Reported care, fall precautions, Reorient as needed (5) Auditory hallucinations Current Visit: Yes Status: Acute (6) Anemia Current Visit: No Status: Chronic Plan: Trend H&H Transfuse less than 7 Qualifiers: Chronic kidney disease stage 3 subtype: stage 3b (GFR 30-44) Discharge Plan: Home - Advance Directives Does patient have a Living Will: No Does patient have a Durable POA for Healthcare: No - Code Status/Comfort Care Code Status: Full Code Critical Care: No Time Spent Managing Pts Care (In Minutes): 55
[2024-09-06 16:49] VITALS: BMI 26.4
[2024-09-06] MEDS ORDERED: ACETAMINOPHEN 500 MG TAB PO PRN (16:49)
[2024-09-06] MEDS ORDERED: ONDANSETRON 4 MG/2 ML VIAL IV PRN (16:49)
[2024-09-06] MEDS: FUROSEMIDE 40 MG/4 ML VIAL IV ONE (17:50)
[2024-09-07 05:24] LABS: Absolute Eosinophils 0.2 K/uL (0-0.5); Absolute Lymphocytes (CBC) 1.8 K/uL (0.7-4.9); Absolute Monocytes 0.5 K/uL (0.1-1.3); Absolute Neutrophil 2.4 K/uL (1.8-8.0); Basophils % 0.8 % (0-1.3); Eosinophils % 3.5 % (0-4.4); Hematocrit 28.1 % (36.0-45.0); Hemoglobin 9.1 g/dL (12.0-15.0); Lymphocytes % 36.5 % (15.3-44.8); MCH 31.7 pg (27.0-35.0); MCHC 32.6 g/dL (32.0-36.0); MCV 97.3 fL (80-100); MPV 9.9 fL (7.6-11.3); Monocytes % 10.5 % (3.3-12.3); Neutrophils % 48.7 % (41.7-73.7); Platelets 158 thou/uL (152-406); RBC Red Blood Cell Count 2.88 M/uL (3.86-4.86); Red Cell Distribution Width 15.3 % (12.1-15.2)
[2024-09-07 05:52] LABS: Anion Gap 5.9 mEq/L (5.0-15.0); Magnesium 1.1 mg/dL (1.6-2.4); Potassium 3.9 mEq/L (3.5-5.1)
[2024-09-07] MEDS: Magnesium Sulfate 2gm IVPB 2 G/50 ML BAG IV ONE (06:21)
[2024-09-07 06:35] LABS: Phosphorus 3.5 mg/dL (2.5-4.9)
[2024-09-07] MEDS: POTASSIUM 25 MEQ EFFERV TAB PO ONE (08:45)
--- NOTE | 2024-09-07 10:25 | P.PN ---
Date of Service: 09/07/24 subjective reports chronic dizziness, no reported chest pain Review of Systems 10-point ROS is otherwise unremarkable Physical Examination - Physical Exam Vital signs reviewed General: Alert, In no apparent distress, Oriented x3 HEENT: Atraumatic, Normocephalic, PERRLA Neck: Supple, JVD not distended Respiratory: Normal air movement, Diminished Cardiovascular: Normal pulses, Regular rate/rhythm Capillary refill: >2 Seconds Gastrointestinal: Normal bowel sounds, Soft and benign, Other (obese) Musculoskeletal: No clubbing, No swelling Integumentary: No rashes, No breakdown Neurological: Normal speech, Normal strength at 5/5 x4 extr, Sensation intact, Cranial nerves 3-12 intact Assessment and Plan - Problems (Diagnosis) (1) Dizziness Current Visit: Yes Status: Acute Comment: Echo ordered, telemetry, Fall precautions, CT of the head no acute abnormality Plan: Echo ordered, telemetry, Fall precautions, CT of the head no acute abnormality PPM, cannot do MRI carotid dopplers ordered (2) NSTEMI (non-ST elevated myocardial infarction) Current Visit: Yes Status: Acute Plan: Trend troponin, echo ordered, Gentle diuretics, cardiology consult, Therapeutic Lovenox Trend BNP PPM, cannot do MRI (3) Hallucinations Current Visit: Yes Status: Acute (4) Hallucinations, visual Current Visit: Yes Status: Acute Plan: Psychiatric consult, notified, Denies suicidal, homicidal thoughts, Reported care, fall precautions, Reorient as needed (5) Auditory hallucinations Current Visit: Yes Status: Acute (6) Anemia Current Visit: No Status: Chronic Plan: Trend H&H Transfuse less than 7 Qualifiers: Chronic kidney disease stage 3 subtype: stage 3b (GFR 30-44) Discharge Plan: Home - Advance Directives Does patient have a Living Will: No Does patient have a Durable POA for Healthcare: No - Code Status/Comfort Care Code Status: Full Code Critical Care: No Time Spent Managing Pts Care (In Minutes): 35
[2024-09-07] MEDS: SACUBITRIL/VALSARTAN 24/26 MG TAB PO SCH (21:46)
[2024-09-07] MEDS: CALCIUM CARBONATE CHEW 500MG TAB PO ONE (21:46)
[2024-09-07] MEDS: APIXABAN 2.5 MG TABLET PO SCH (21:49)
--- NOTE | 2024-09-08 00:56 | RAD REPORT ---
EXAM:Carotid Artery Bilateral CLINICAL INDICATION: dizziness TECHNIQUE: Real-time grayscale, color flow, and spectral Doppler sonographic images were obtained of the extracranial carotid system using a linear transducer. Arterial peak systolic velocities are recorded as follows. COMPARISON: No prior exam. FINDINGS: Technically difficult exam given difficulties of patient positioning. Limited visualization of the ve rtebral arteries. RIGHT: Common carotid artery: 73 cm/s Internal carotid artery: 60 cm/s Right ICA/CCA ratio: 0.8 Plaque None External carotid artery: 100 cm/s Vertebral artery: Antegrade, 47 CM/second LEFT: Common carotid artery: 56 cm/s Internal carotid artery: 58 cm/s Left ICA/CCA ratio: 1.03 Plaque None External carotid artery: 66 cm/s Vertebral artery: Antegrade, 68 CM/second IMPRESSION: No hemodynamically significant stenosis (greater than 50%) within the extracranial internal carotid a rteries. This is allowing for exam limitations mentioned above. The degrees of stenosis, if any, are quantified according to the consensus statement of the Society o f Radiologists in Ultrasound (SRUS). Please refer to Kvng E, Jun C, Basia G et al. Carotid Artery Stenosis: Lynne-Scale and Doppler US Diagnosis--Society of Radiologists in Ultrasound Consensus Conference. Radiology. 2003;229(2):340-6. doi:10.1148/[id number]
[2024-09-08 05:43] LABS: Absolute Basophils 0.1 K/uL (0-0.5); Absolute Eosinophils 0.2 K/uL (0-0.5); Absolute Lymphocytes (CBC) 2.2 K/uL (0.7-4.9); Absolute Monocytes 0.8 K/uL (0.1-1.3); Absolute Neutrophil 4.2 K/uL (1.8-8.0); Basophils % 0.8 % (0-1.3); Eosinophils % 2.4 % (0-4.4); Hematocrit 29.1 % (36.0-45.0); Hemoglobin 9.5 g/dL (12.0-15.0); Lymphocytes % 29.2 % (15.3-44.8); MCH 31.5 pg (27.0-35.0); MCHC 32.6 g/dL (32.0-36.0); MCV 96.8 fL (80-100); MPV 9.8 fL (7.6-11.3); Monocytes % 11.2 % (3.3-12.3); Neutrophils % 56.4 % (41.7-73.7); Platelets 163 thou/uL (152-406); RBC Red Blood Cell Count 3.01 M/uL (3.86-4.86); Red Cell Distribution Width 15.4 % (12.1-15.2)
[2024-09-08 05:58] LABS: Anion Gap 8.8 mEq/L (5.0-15.0); Magnesium 1.6 mg/dL (1.6-2.4); Potassium 3.8 mEq/L (3.5-5.1)
--- NOTE | 2024-09-08 07:38 | ECHO ---
HEIGHT: 5 ft 4 in WEIGHT: 154 lb 0 oz DATE OF STUDY: 09/07/[address]: Brenda Ortiz PUBLIC INFORMATION RELATIONS MANAGERShy 2-DIMENSIONAL: YES M.MODE: YES DOPPLER: YES COLOR FLOW: YES TDS: YES PORTABLE: YES DEFINITY: BUBBLE STUDY: DIAGNOSIS: DIZZINESS CARDIAC HISTORY: CATHERIZATION: NO SURGERY: NO PROSTHETIC VALVE: NO PACEMAKER: YES MEASUREMENTS (cm) DIASTOLIC (NORMALS) SYSTOLIC (NORMALS) IVSd 1.0 (0.6-1.2) LA Diam 2.7 (1.9-4.0) LVEF 60% LVIDd 3.3 (3.5-5.7) LVIDs 2.4 (2.0-3.5) %FS 28% LVPWd 1.1 (0.6-1.2) Ao Diam 2.5 (2.0-3.7) 2 DIMENSIONAL ASSESSMENT: RIGHT ATRIUM: NORMAL LEFT ATRIUM: NORMAL RIGHT VENTRICLE: NORMAL LEFT VENTRICLE: NORMAL TRICUSPID VALVE: TRACE TRICUSPID REGURGITATION MITRAL VALVE: NORMAL PULMONIC VALVE: NORMAL AORTIC VALVE: NORMAL PERICARDIAL EFFUSION: NONE AORTIC ROOT: NORMAL LEFT VENTRICULAR WALL MOTION: NORMAL DOPPLER/COLOR FLOW: NOT ASSESSED COMMENTS: 1. NORMAL LEFT VENTRICULAR SYSTOLIC FUNCTION, EJECTION FRACTION 60%, NORMAL WALL MOTION TECHNOLOGIST: JUDAH DIANA
[2024-09-08] MEDS: PARoxetine HCL 10 MG TAB PO SCH (07:43)
[2024-09-08] MEDS: AMLODIPINE 5 MG TAB PO SCH (07:44)
[2024-09-08] MEDS: BISMUTH SUBSALICYL 262MG/15ML-240 ML BTL PO PRN (07:44)
[2024-09-08] MEDS: FUROSEMIDE 40 MG TABLET PO SCH (07:44)
[2024-09-08] MEDS: MAGNESIUM SULFATE 1 gm IVPB 1 GM/100 ML BAG IV ONE (07:56)
[2024-09-08] MEDS: POTASSIUM 25 MEQ EFFERV TAB PO ONE (07:56)
--- NOTE | 2024-09-08 08:10 | P.PN ---
Date of Service: 09/08/24 subjective reports chronic dizziness, no reported chest pain repors auditory, visual hallucinations, psych notified for evaluation today Review of Systems 10-point ROS is otherwise unremarkable Physical Examination - Physical Exam Vital signs reviewed General: Alert, In no apparent distress, Oriented x3 HEENT: Atraumatic, Normocephalic, PERRLA Neck: Supple, JVD not distended Respiratory: Normal air movement, Diminished Cardiovascular: Normal pulses, Regular rate/rhythm Capillary refill: >2 Seconds Gastrointestinal: Normal bowel sounds, Soft and benign, Other (obese) Musculoskeletal: No clubbing, No swelling Integumentary: No rashes, No breakdown Neurological: Normal speech, Normal strength at 5/5 x4 extr, Sensation intact, Cranial nerves 3-12 intact Assessment and Plan - Problems (Diagnosis) Dizziness Current Visit: Yes Status: Acute Comment: Echo ordered, telemetry, Fall precautions, CT of the head no acute abnormality Cardiology consulted Echo ordered, . NORMAL LEFT VENTRICULAR SYSTOLIC FUNCTION, EJECTION FRACTION 60%, NORMAL WALL MOTION telemetry, Fall precautions, CT of the head no acute abnormality PPM, cannot do MRI carotid dopplers ordered No hemodynamically significant stenosis (greater than 50%) within the extracranial internal carotid arteries. This is allowing for exam limitations mentioned above NSTEMI (non-ST elevated myocardial infarction) chronic anticoagulation initiated Current Visit: Yes Status: Acute Start eloquis 2.5 bid Trend troponin, echo ordered, Gentle diuretics, cardiology consult, Therapeutic Lovenox Trend BNP PPM, cannot do MRI Resume home Entresto Hallucinations Auditory hallucinations Current Visit: Yes Status: Acute Current Visit: Yes Status: Acute Plan: Psychiatric consult, notified, Denies suicidal, homicidal thoughts, Reported care, fall precautions, Reorient as needed Anemia Acute kidney injury, chronic kidney disease CKD stage III Plan: Trend H&H Transfuse less than 7 Avoid nephrotoxic medication unsteady gait PT eval - Advance Directives Does patient have a Living Will: No Does patient have a Durable POA for Healthcare: No - Code Status/Comfort Care Code Status: Full Code Critical Care: No Time Spent Managing Pts Care (In Minutes): 35
[2024-09-08 09:25] VITALS: O2SAT 96
[2024-09-08 12:24] VITALS: BP 146/70; TEMP 97
--- NOTE | 2024-09-08 13:37 | P.DS ---
Admission Date: 09/06/24 Discharge Date: 09/08/24 Disposition: ROUTINE DISCHARGE Discharge Condition: GOOD Reason for Admission: Dizziness Brief History of Present Illness: 84 year old female with past medical history of CAD; Congestive heart failure; Hypertensive disorder; NIDDM, presents to the emergency department for dizziness. She reports dizziness started after eye surgery that has been chronic for the last year. She reports visual and auditory hallucinations over the last 2 months. She reports urinary urgency, incontinence that is chronic.. She reports seeing and hearing neighbors in her apartment who are not there. She denies any suicidal, homicidal thoughts. She reports she lives in her apartment garage of her daughter. Uses a walker at baseline, no reported falls, She denies recent fall, no reported head injury, shortness of breath, chest pain, edema, recent fever, infection. Plan to admit to [facility] for Dizziness, NSTEMI, Visual auditory hallucinations. - Physical Exam General: Alert, In no apparent distress, Oriented x3 HEENT: Atraumatic, Normocephalic, PERRLA Neck: Supple, JVD not distended Respiratory: Normal air movement, Diminished Cardiovascular: Normal pulses, Regular rate/rhythm Capillary refill: >2 Seconds Gastrointestinal: Normal bowel sounds, Soft and benign, Other (obese) Musculoskeletal: No clubbing, No swelling Integumentary: No rashes, No breakdown Neurological: Normal speech, Normal strength at 5/5 x4 extr, Sensation intact, Cranial nerves 3-12 intact Hospital Course: 84 year old female with past medical history of CAD; Congestive heart failure; Hypertensive disorder; NIDDM, presents to the emergency department for dizziness. She reports dizziness started after eye surgery that has been chronic for the last year. She reports visual and auditory hallucinations over the last 2 months. She reports urinary urgency, incontinence that is chronic.. She reports seeing and hearing neighbors in her apartment who are not there. She denies any suicidal, homicidal thoughts. She reports she lives in her apartment garage of her daughter. Uses a walker at baseline. Presented with dizziness, unable to do MRI due to pacemaker, carotid Dopplers no significant stenosis, noted to have NSTEMI, elevated troponin, started on Eliquis 2.5 twice daily, patient was evaluated by cardiology, resume Entresto at discharge., She was evaluated by psych for auditory visual hallucinations. Tolerating diet, cardiac follow-up with cardiology after discharge. Assessment NSTEMI, started on Eliquis 2.5 twice daily Hypertension continue other home antihypertension, antilipid medications, amlodipine, Lasix 40 daily, Auditory visual hallucinations, evaluated by psych, Paxil 40 daily Acute kidney injury, with CKD, follow-up with PCP after discharge for monitoring kidney function Unsteady gait evaluated by physical therapy prior to discharge CT of the brain no acute abnormality Echo NORMAL LEFT VENTRICULAR SYSTOLIC FUNCTION, EJECTION FRACTION 60%, Patient refused to work with physical therapy while inpatient Continue home medicines as previously prescribed GOAL: Clear understanding of disease process INSTRUCTIONS: Physician Discharge Instructions: -Follow-up with neuropsych, Minnie psych for auditory visual hallucination -Follow-up with PCP in 1 to 2 weeks -Please call Dr. Renae at [phone] if any questions regarding hospital stay -Please call nursing station at [phone] if any nursing or medication questions -Return to the emergency room if symptoms worsen Diet: ADA, low sodium Activity: Fall precautions Vital Signs/Physical Exam: Temp Pulse Resp BP Pulse Ox 97.0 F 83 14 146/70 H 100 09/08/24 12:00 09/08/24 12:00 09/08/24 12:00 09/08/24 12:00 09/08/24 12:00 Laboratory Data at Discharge: WBC 7.50 thou/uL (4.3-10.9) 09/08/24 05:02 Hgb 9.5 g/dL (12.0-15.0) L 09/08/24 05:02 Hct 29.1 % (36.0-45.0) L 09/08/24 05:02 Plt Count 163 thou/uL (152-406) 09/08/24 05:02 PT 16.0 SECONDS (9.4-12.5) H 09/06/24 13:43 INR 1.44 09/06/24 13:43 Sodium 141 mEq/L (136-145) 09/08/24 05:02 Potassium 3.8 mEq/L (3.5-5.1) 09/08/24 05:02 BUN 34 mg/dL (7-18) H 09/08/24 05:02 Creatinine 2.10 mg/dL (0.55-1.02) H 09/08/24 05:02 Glucose 138 mg/dL (74-106) H 09/08/24 05:02 Phosphorus 3.5 mg/dL (2.5-4.9) 09/07/24 04:49 Magnesium 1.6 mg/dL (1.6-2.4) 09/08/24 05:02 Home Medications: PARoxetine HCl [Paroxetine HCl] 40 mg PO DAILY 02/17/19 Amlodipine [Norvasc*] 5 mg PO DAILY 10/11/22 Apixaban [Eliquis *] 2.5 mg PO BID #60 tab 11/16/22 Furosemide [Lasix*] 40 mg PO DAILY #30 tab 11/16/22 Sacubitril/Valsartan [Entresto 24 mg-26 mg Tablet] 1 tab PO BID #60 tab 11/16/22 Physician Discharge Instructions: -DC IV and DC home -Follow-up with PCP in 1 to 2 weeks -Follow-up with Psychiatry, Dr. Chandler Ward in 1 to 2 weeks -Please call Dr. Renae at [phone] if any questions regarding hospital stay -Please call nursing station at [phone] if any nursing or medication questions -Return to the emergency room if symptoms worsen Diet: AHA Activity: Fall precautions Followup: Chandler Cullen [ACTIVE - CAN ADMIT] - 1-2 Weeks Isaias Henson MD [Primary Care Provider] - 1-2 Weeks Time spent managing pt's care (in minutes): 55
[2024-09-08] MEDS ORDERED: ENOXAPARIN 60 MG/0.6 ML SQ SCH (15:00)
[2024-09-08] MEDS ORDERED: CALCIUM CARBONATE CHEW 500MG TAB PO ONE (21:18)
--- NOTE | 2024-09-09 12:02 | EKG ---
Test Date: 2024-09-06 Test Time: 15:01:46 Consulting Senior Practice Director: VIK MEASUREMENT RESULTS: Intervals: Rate: 68 AL: 100 QRSD: 110 QT: 426 QTc: 452 [place]: P: 24 AL: 100 QRS: -4 T: 12 INTERPRETIVE STATEMENTS: Sinus rhythm with short AL Cannot rule out Inferior infarct, age undetermined Anterior infarct, age undetermined Abnormal ECG Compared to ECG 09/06/2024 13:40:08 Short AL interval now present Myocardial infarct finding still present Electronically Signed On 09-09-24 11:54:46 CDT by Maciel Hsu
--- NOTE | 2024-09-09 12:04 | EKG ---
Test Date: 2024-09-06 Test Time: 13:40:08 [employer] Associate: DIMITRIS MEASUREMENT RESULTS: Intervals: Rate: 60 IL: 128 QRSD: 96 QT: 410 QTc: 410 Helen: P: 4 IL: 128 QRS: -3 T: 0 INTERPRETIVE STATEMENTS: Normal sinus rhythm Inferior infarct, age undetermined Anterior infarct, age undetermined Abnormal ECG Compared to ECG 12/16/2022 11:38:09 Left-axis deviation no longer present Myocardial infarct finding still present Electronically Signed On 09-09-24 11:55:08 CDT by Maciel Hsu
== END 2024-09-08 14:32 | disposition home or self-care (01) | DRG 281 ==
LOC: ER 13:11 → ERHOLD 15:55 → 2ND 16:32
PROVIDERS: ADMIT Hospitalist; ATTEND Hospitalist
DX: I21.4 Non-ST elevation (NSTEMI) myocardial infarction (principal); N17.9 Acute kidney failure, unspecified; R44.0 Auditory hallucinations; I12.9 Hypertensive chronic kidney disease with stage 1 through stage 4 chronic kidney disease, or unspecified chronic kidney disease; N18.32 Chronic kidney disease, stage 3b; E11.22 Type 2 diabetes mellitus with diabetic chronic kidney disease; D63.1 Anemia in chronic kidney disease; E78.5 Hyperlipidemia, unspecified; K21.9 Gastro-esophageal reflux disease without esophagitis; I25.10 Atherosclerotic heart disease of native coronary artery without angina pectoris; R44.1 Visual hallucinations; Z95.0 Presence of cardiac pacemaker; Z60.2 Problems related to living alone; Z79.82 Long term (current) use of aspirin; Z79.02 Long term (current) use of antithrombotics/antiplatelets; Z90.49 Acquired absence of other specified parts of digestive tract; Z79.899 Other long term (current) drug therapy
CPT/HCPCS: 36415; 70450; 71045; 80048; 81001; 83735; 83880; 84100; 84484; 85025; 85610; 93005; 93306; 93880; 94760; 96372; 96374; 96375; 99285; J1200; J1650; J1940; J2765; J3475

== ENCOUNTER 2025-06-22 14:09 | Inpatient (IN) | payer OTHER ==
[2025-06-22] MEDS ORDERED: MAGNESIUM HYDROXIDE 8% 30 ML PO PRN (16:00)
--- OUTSIDE RECORDS SUMMARY | 2025-06-22 16:04 | XMS REPORT | Continuity of Care Document ---
Author Name Unknown Address [address] [facility] [place] [address] [facility] Address [address] [facility] [place] [address] Care Team Providers Care [employer] Officer Name Role Phone Isaias Henson MD Primary Care Physician VINCE VASQUEZ Attending Clinician Unavailab AMARILIS Llanos Attending Clinician Amie vailable CICI MALIN Attending Clinician Unavail able CICI MALIN Attending Clinician Unavail able Sixto JOHNSON, Isaias Attending Clinician [phone] Lab, Ang - Db Attending Clinician Unavailable ISAIAS HENSON Attending Clinician Unavailable uQeenie Mcdonald Attending Clinician Unav ailable Doctor Unassigned, Cale Attending Clinician U richard Vasquez RN, Jonh Perez Attending Clinician Unavail able RENETTA BRADFORD Attending Clinician Unavailable Tashi SIGN INSTALLER, Renetta Attending Clinician [phone] Abhishek RN, Shereen Shipley Attending Clinician Unavaila martina Henson MD, Isaias Attending Clinician [phone] Cristobal KUMAR, Miriam Santacruz Attending Clinician [phone] FREYA IBRAHIM Attending Clinician Unavailable Alexandria JOHNSON, Freya Crystal Attending Clinician [phone] Doctor Unassigned, Cale Attending Clinician U navailable Lab, Ang - Db Attending Clinician Unavailable Saw Orlando MD, Estuardo Attending Clinician aKren JOHNSON, Mayda Pope Attending Clinician [phone] Alexandra Phillip RN Attending Clinician Unavailable TISH BENNETT Attending Clinician Unavailable Eddie Win DO Attending Clinician [phone] Tish Bennett DO Attending Clinician [phone] Farshad JOHNSON, Jaskaran Attending Clinician [phone] JASKARAN YEN Attending Clinician Unavailable Mak KUMAR, Man Pope Attending Clinician Unavail able CHRIS TILLMAN Attending Clinician Unavailable Primo JOHNSON, Chris Rolle Attending Clinician [phone] EFFIE VERAS Attending Clinician Unavailable Queenie Mcdonald Attending Clinician [phone] Vince Vasquez MD Attending Clinician [phone] Abdiel Martínez CRNA Attending Clinician [phone] Michael Lema MD Attending Clinicia n [facility] Lab Main Attending Clinician UnavailQUEENIE Herman Attending Clinician Unavaila ble Vaccine, [facility] Family [facility] Attending Clinician Unavailable Only, Adc Test Attending Clinician Unavailable CHRISTINE CONNER Attending Clinician Unavailable RICKY PADILLA Attending Clinician Unavaila NICOLETTE Newsome Attending Clinician Unavailable VINCE VASQUEZ Admitting Clinician Unavailab ISAIAS Nance Admitting Clinician Unavailable TISH BENNETT Admitting Clinician Unavailable Tish Bennett DO Admitting Clinician [phone] Vince Vasquez MD Admitting Clinician [phone] NICOLETTE HOBBS Admitting Clinician Unavailable Payers Payer Name Policy Type Policy Number Effective Date Expirati on Date Source MEDICARE PART A AND B [id number] 2004 00:00:00 MEDICARE PART A \\T\\ B [id number] 2004 00:00:00 Problems Condition Name Condition Details Condition Category Status Onset Date Resolution Date Last Treatment Date Treating Clinician Comments Source Hypotensio n, unspecifie d hypotensio n type Hypotensio n, unspecifie d hypotensio n type Disease Active 1 00:00: 00 [facility] 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 Disease Active 2021-11 00:00: 00 [facility] Essential hypertensi on Essential hypertensi on Disease Active 08-18 00:00: 00 [facility] Hyperlipid emia, unspecifie d hyperlipid emia type Hyperlipid emia, unspecifie d hyperlipid emia type Disease Active 08-18 00:00: 00 [facility] Type 2 diabetes mellitus without complicati on, without long-term current use of insulin Type 2 diabetes mellitus without complicati on, without long-term current use of insulin Disease Active 08-18 00:00: 00 [facility] Trigeminal neuralgia of right side of face Trigeminal neuralgia of right side of face Disease Active 08-18 00:00: 00 [facility] Type 2 diabetes mellitus without complicati on, without long-term current use of insulin Type 2 diabetes mellitus without complicati on, without long-term current use of insulin Disease Active 08-18 00:00: 00 [facility] Allergies, Adverse Reactions, Alerts Allergy Name Allergy Type Status Severity Reaction(s) Onset Date Inactive Date Treating Clinician Comments Source NO KNOWN ALLERGIE S Drug Class Active [facility] Social History Social Habit Start Date Stop Date Quantity Comments Source History of tobacco use Passive smoker [facility] History SDOH Social Connections Get Together [facility] History SDOH [facility]ctions [facility] Social Connections Membership [facility] History SDUT Social Connections Meetings [facility] Gender identity [facility] ASSERTION Not [facility] Sexual orientation [facility] Alcoholic beverage intake 2025-06-07 00:00:00 2025-06-07 00:00:00 Current drinker of alcohol (finding) [facility] Alcohol intake 2023-09-23 00:00:00 2023-09-23 00:00:00 Ex-drinker (finding) [facility] History of Social function 2023-09-23 00:00:00 2023-09-23 00:00:00 [facility] Exposure to SARS-CoV-2 (event) 2023-02-23 00:00:00 2023-03-05 12:51:00 Not sure [facility] History SDOH Food Worry 2022-11-29 00:00:00 2022-11-29 00:00:00 1 [facility] History SDOH Food Scarcity 2022-11-29 00:00:00 2022-11-29 00:00:00 1 [facility] History SDOH Transport Med 2022-11-29 00:00:00 2022-11-29 00:00:00 2 [facility] History SDOH Transport Non-Med 2022-11-29 00:00:00 2022-11-29 00:00:00 2 [facility] History SDOH Alcohol Frequency 2022-11-29 00:00:00 2022-11-29 00:00:00 1 [facility] History SDOH Alcohol Std Drinks 2022-11-29 00:00:00 2022-11-29 00:00:00 0 [facility] History SDOH Alcohol Binge 2022-11-29 00:00:00 2022-11-29 00:00:00 1 [facility] History SDOH Social Connections Phone 2022-11-29 00:00:00 2022-11-29 00:00:00 1 [facility] History SDOH Social Connections Living 2022-11-29 00:00:00 2022-11-29 00:00:00 4 [facility] History SDOH Financial 2022-11-29 00:00:00 2022-11-29 00:00:00 5 [facility] Tobacco use and exposure 2022-10-31 00:00:00 2022-10-31 00:00:00 Smokeless tobacco non-user [facility] Sex Assigned At 1940 00:00:00 1940 00:00:00 F [facility] Smoking Status Start Date Stop Date Source Never smoked tobacco [facility] Medications Ordered Medication Name Filled Medication Name Start Date Stop Date Current Medication? Ordering Clinician Indication Dosage Frequency Signature (SIG) Comments Components Source rivastigmin e 4.6 mg/24 hour patch 06-07 00:00: 00 Yes [id number] 1{patch } Apply 1 Patch to skin in the morning. [facility] ELIQUIS 2.5 mg tablet 06-02 00:00: 00 Yes [id number] TAKE 1 TABLET BY MOUTH IN THE MORNING AND 1 TABLET IN THE EVENING. INDICATION S: ATRIAL FIBRILLATI ON [facility] DIPHENOXYLA TE-ATROPINE 2.5-0.025 mg tablet 05-20 00:00: 00 Yes [id number] 1{tbl} TAKE 1 TABLET BY MOUTH EVERY 6 (SIX) HOURS NEEDED FOR OTHER (DIARRHEA) . [facility] ONDANSETRON 4 mg disintegrat ing tablet 05-19 00:00: 00 Yes [id number] TAKE 1 TABLET BY MOUTH EVERY 8 HOURS NEEDED FOR NAUSEA AND VOMITING . [facility] ENTRESTO 24-26 mg tablet 05-03 00:00: 00 Yes [id number] 1{tbl} TAKE 1 TABLET BY MOUTH EVERY MORNING AND EVENING. [facility] nystatin 100,000 unit/gram powder 04-27 00:00: 00 Yes [id number] Apply to area(s) 2 times daily. [facility] PAROXETINE 40 mg tablet 03-28 00:00: 00 Yes [id number] 40mg TAKE 1 TABLET BY MOUTH EVERY DAY [facility] CARVEDILOL 12.5 mg tablet 03-28 00:00: 00 Yes [id number] 12.5mg TAKE 1 TABLET BY MOUTH IN THE MORNING AND IN THE EVENING [facility] pravastatin 80 mg tablet 03-02 00:00: 00 Yes [id number] 80mg Take 1 tablet by mouth at bedtime. [facility] carvediloL 12.5 mg tablet 03-02 00:00: 00 03-28 00:00 :00 No [id number] 12.5mg Take 1 tablet by mouth in the morning and 1 tablet in the evening. [facility] FENOFIBRATE MICRONIZED 200 mg capsule 03-01 00:00: 00 Yes [id number] 200mg TAKE 1 CAPSULE BY MOUTH DAILY WITH BREAKFAST. [facility] PANTOPRAZOL E 40 mg EC tablet 03-01 00:00: 00 Yes [id number] 40mg TAKE 1 TABLET BY MOUTH EVERY DAY IN THE MORNING [facility] AMLODIPINE 5 mg tablet 03-01 00:00: 00 Yes [id number] 5mg TAKE 1 TABLET BY MOUTH EVERY DAY IN THE MORNING [facility] GABAPENTIN 300 mg capsule 03-01 00:00: 00 Yes [id number] TAKE 1 CAPSULE BY MOUTH IN THE MORNING AND IN THE EVENING [facility] METOPROLOL SUCCINATE XL 50 mg 24 hr tablet 03-01 00:00: 00 Yes [id number] 50mg TAKE 1 TABLET BY MOUTH EVERY DAY IN THE MORNING [facility] ELIQUIS 2.5 mg tablet 03-01 00:00: 00 06-02 00:00 :00 No [id number] TAKE 1 TABLET BY MOUTH IN THE MORNING AND 1 TABLET IN THE EVENING. INDICATION S: ATRIAL FIBRILLATI ON [facility] PAROXETINE 40 mg tablet 4-08 00:00: 00 03-28 00:00 :00 No [id number] TAKE 1 TABLET BY MOUTH EVERY DAY [facility] ENTRESTO 24-26 mg tablet 3-10 00:00: 00 05-03 00:00 :00 No [id number] 1{tbl} TAKE 1 TABLET BY MOUTH EVERY MORNING AND EVENING. [facility] diphenoxyla te-atropine 2.5-0.025 mg tablet 3-06 00:00: 00 05-20 00:00 :00 No [id number] 1{tbl} Take 1 tablet by mouth every 6 (six) hours as needed for Other (diarrhea) . [facility] ondansetron 4 mg disintegrat ing tablet 01-27 00:00: 00 05-19 00:00 :00 No [id number] 4mg Take 1 tablet by mouth every 8 (eight) hours as needed for Nausea and Vomiting (N/V). [facility] diphenoxyla te-atropine 2.5-0.025 mg tablet 2-12 00:00: 00 01-27 00:00 :00 No [id number] 1{tbl} TAKE 1 TABLET BY MOUTH EVERY 6 (SIX) HOURS NEEDED FOR OTHER (DIARRHEA) . [facility] NYSTATIN 100,000 unit/gram powder - 00:00: 00 Yes [id number] APPLY TO AFFECTED AREA TWICE A DAY [facility] HYDRALAZINE 10 mg tablet - 00:00: 00 Yes [id number] TAKE 1 TABLET BY MOUTH EVERY 8 HOURS FOR 30 DAYS [facility] PRAVASTATIN 80 mg tablet - 00:00: 00 03-02 00:00 :00 No [id number] 80mg TAKE 1 TABLET BY MOUTH EVERYDAY AT BEDTIME [facility] METOPROLOL SUCCINATE XL 50 mg 24 hr tablet - 00:00: 00 03-01 00:00 :00 No [id number] 50mg TAKE 1 TABLET BY MOUTH EVERY DAY IN THE MORNING [facility] FENOFIBRATE MICRONIZED 200 mg capsule 11-25 00:00: 00 03-01 00:00 :00 No [id number] 200mg TAKE 1 CAPSULE BY MOUTH DAILY WITH BREAKFAST. [facility] AMLODIPINE 5 mg tablet 11-25 00:00: 00 03-01 00:00 :00 No [id number] 5mg TAKE 1 TABLET BY MOUTH EVERY DAY IN THE MORNING [facility] PAROXETINE 40 mg tablet 2023-11 00:00: 00 03-01 00:00 :00 No [id number] TAKE 1 TABLET BY MOUTH EVERY DAY [facility] ENTRESTO 24-26 mg tablet 2023-11 00:00: 00 Yes [id number] 1{tbl} TAKE 1 TABLET BY MOUTH EVERY MORNING AND EVENING. [facility] ELIQUIS 2.5 mg tablet 2023-11 00:00: 00 03-01 00:00 :00 No [id number] TAKE 1 TABLET BY MOUTH IN THE MORNING AND 1 TABLET IN THE EVENING. INDICATION S: ATRIAL FIBRILLATI ON [facility] pravastatin 80 mg tablet 2023-11 00:00: 00 11-25 00:00 :00 No [id number] 80mg Take 1 tablet by mouth at bedtime. [facility] metoprolol succinate XL 50 mg 24 hr tablet 2023-11 00:00: 11-25 00:00 :00 No [id number] 50mg Take 1 tablet by mouth every morning. [facility] fenofibrate micronized 200 mg capsule 2023-11 00:00: 00 11-25 00:00 :00 No [id number] 200mg Take 1 capsule by mouth daily with breakfast. [facility] cefTRIAXone (ROCEPHIN) 1,000 mg in water for injection, sterile 10 mL IV Push 2023-11 21:15: 00 09-09 21:20 :00 No 1000mg 1,000 mg, Intravenou s, ONCE, 1 dose, On [place] 09/09/24 at 1615, 10 mL, Reason for Anti-Infec tive: Documented Infection, Documented Infection Site: Urine, Duration of Therapy: Once (ED) [facility] sodium chloride (NS) injection 5 mL 2023-11 18:06: 49 Yes 5mL 5 mL, Intravenou s, PRN, Starting on [place] 09/09/24 at 1306, Until Discontinu ed, Routine, IV line flushing [facility] ciprofloxac in HCl 500 mg tablet 2023-11 00:00: 00 03-02 00:00 :00 No [id number] 500mg Take 1 tablet by mouth in the morning and 1 tablet in the evening. [facility] ONDANSETRON 4 mg disintegrat ing tablet 08-23 00:00: 00 01-27 00:00 :00 No [id number] TAKE 1 TABLET BY MOUTH EVERY 8 HOURS NEEDED FOR NAUSEA AND VOMITING . [facility] AMLODIPINE 5 mg tablet 07-28 00:00: 00 11-25 00:00 :00 No [id number] 5mg TAKE 1 TABLET BY MOUTH EVERY DAY IN THE MORNING [facility] PANTOPRAZOL E 40 mg EC tablet 06-28 00:00: 00 03-01 00:00 :00 No [id number] 40mg TAKE 1 TABLET BY MOUTH EVERY DAY IN THE MORNING [facility] nystatin 100,000 unit/gram powder 06-28 00:00: 00 11-25 00:00 :00 No [id number] Apply to area(s) 2 (two) times daily. [facility] sacubitriL- valsartan (ENTRESTO) 24-26 mg tablet 06-28 00:00: 00 11-05 00:00 :00 No [id number] 1{tbl} Take 1 tablet by mouth every morning and evening. [facility] FUROSEMIDE 40 mg tablet - 00:00: 00 Yes [id number] 40mg TAKE 1 TABLET BY MOUTH EVERY DAY IN THE MORNING [facility] HYDRALAZINE 10 mg tablet 05-25 00:00: 00 11-25 00:00 :00 No [id number] TAKE 1 TABLET BY MOUTH EVERY 8 HOURS FOR 30 DAYS [facility] METOPROLOL SUCCINATE XL 50 mg 24 hr tablet 05-25 00:00: 00 09-30 00:00 :00 No [id number] 50mg TAKE 1 TABLET BY MOUTH EVERY DAY IN THE MORNING [facility] DIPHENOXYLA TE-ATROPINE 2.5-0.025 mg tablet 05-24 00:00: 00 01-05 00:00 :00 No [id number] 1{tbl} TAKE 1 TABLET BY MOUTH EVERY 6 (SIX) HOURS NEEDED FOR OTHER (DIARRHEA) . [facility] ONDANSETRON 4 mg disintegrat ing tablet 05-10 00:00: 00 08-23 00:00 :00 No [id number] TAKE 1 TABLET BY MOUTH EVERY 8 HOURS NEEDED FOR NAUSEA AND VOMITING . [facility] ELIQUIS 2.5 mg tablet 04-16 00:00: 00 10-18 00:00 :00 No [id number] TAKE 1 TABLET BY MOUTH IN THE MORNING AND 1 TABLET IN THE EVENING. INDICATION S: ATRIAL FIBRILLATI ON [facility] neomycin-po lymyxin-hyd rocortisone 3.5-10,000- 1 mg/mL-unit/ mL-% otic susp 03-24 00:00: 00 Yes [id number] 3[drp] Place 3 Drops in both ears 4 (four) times daily. [facility] cefadroxil 500 mg capsule 03-24 00:00: 00 03-02 00:00 :00 No [id number] 500mg Take 1 capsule by mouth in the morning and 1 capsule in the evening. [facility] diphenoxyla te-atropine 2.5-0.025 mg tablet 03-24 00:00: 00 05-24 00:00 :00 No [id number] 1{tbl} Take 1 tablet by mouth every 6 (six) hours as needed for Other (diarrhea) . [facility] DIPHENOXYLA TE-ATROPINE 2.5-0.025 mg tablet 03-22 00:00: 00 03-24 00:00 :00 No [id number] 1{tbl} TAKE 1 TABLET BY MOUTH EVERY 6 (SIX) HOURS NEEDED FOR OTHER (DIARRHEA) . [facility] furosemide 40 mg tablet 03-21 00:00: 00 05-25 00:00 :00 No [id number] 40mg TAKE 1 TABLET BY MOUTH EVERY DAY IN THE MORNING [facility] hydrOXYzine 10 mg tablet 02-17 00:00: 00 Yes [id number] 10mg Take 1 tablet by mouth every 6 (six) hours as needed for Itching. [facility] ondansetron 4 mg disintegrat ing tablet 02-17 00:00: 00 05-10 00:00 :00 No [id number] 4mg Take 1 tablet by mouth every 8 (eight) hours as needed for Nausea and Vomiting (N/V). [facility] diphenoxyla te-atropine 2.5-0.025 mg tablet 02-17 00:00: 00 03-22 00:00 :00 No [id number] 1{tbl} Take 1 tablet by mouth every 6 (six) hours as needed for Other (diarrhea) . [facility] furosemide 40 mg tablet 02-17 00:00: 00 03-21 00:00 :00 No [id number] 40mg Take 1 tablet by mouth in the morning. [facility] NaCl 0.9% (NS) bolus infusion 1,000 mL 02-10 20:30: 00 02-10 21:04 :00 No 1000mL at 999 mL/hr, 1,000 mL, IV Infusion, ONCE, 1 dose, On Fri02/11/24 at 1530, COURTNEY [facility] fexofenadin e 180 mg tablet 12-17 00:00: 00 Yes [id number] 180mg Take 1 tablet by mouth in the morning. [facility] amLODIPine 5 mg tablet 12-17 00:00: 00 07-28 00:00 :00 No [id number] 5mg Take 1 tablet by mouth in the morning. [facility] pantoprazol e 40 mg EC tablet 12-17 00:00: 00 06-28 00:00 :00 No [id number] 40mg Take 1 tablet by mouth every morning. [facility] metoprolol succinate XL 50 mg 24 hr tablet 12-17 00:00: 00 05-25 00:00 :00 No [id number] 50mg Take 1 tablet by mouth every morning. [facility] apixaban (ELIQUIS) 2.5 mg tablet 12-17 00:00: 00 04-16 00:00 :00 No [id number] 2.5mg Take 1 tablet by mouth in the morning and 1 tablet in the evening. Indication s: atrial fibrillati on [facility] furosemide 80 mg tablet 12-17 00:00: 00 02-17 00:00 :00 No [id number] 1/2 po qd Un[facility] PAROXETINE 40 mg tablet 12-04 00:00: 00 11-15 00:00 :00 No [id number] TAKE 1 TABLET BY MOUTH EVERY DAY [facility] METOPROLOL SUCCINATE XL 50 mg 24 hr tablet 2022-11 00:00: 00 12-17 00:00 :00 No [id number] 50mg TAKE 1 TABLET BY MOUTH EVERY DAY IN THE MORNING [facility] AMLODIPINE 5 mg tablet 2022-11 00:00: 00 12-17 00:00 :00 No [id number] TAKE 1 TABLET BY MOUTH EVERY DAY [facility] GABAPENTIN 300 mg capsule 2022-11 00:00: 00 03-01 00:00 :00 No [id number] TAKE 1 CAPSULE BY MOUTH IN THE MORNING AND IN THE EVENING [facility] FUROSEMIDE 80 mg tablet 2022-11 00:00: 00 12-17 00:00 :00 No [id number] TAKE 1 TABLET BY MOUTH EVERY OTHER DAY FOR 30 DAYS [facility] furosemide 80 mg tablet 2022-11 0 00:00: 00 Yes [id number] TAKE 1 TABLET BY MOUTH EVERY OTHER DAY FOR 30 DAYS [facility] hydrALAZINE 10 mg tablet 2022-11 030 00:00: 00 05-25 00:00 :00 No [id number] TAKE 1 TABLET BY MOUTH EVERY 8 HOURS FOR 30 DAYS [facility] AMLODIPINE 5 mg tablet 2022-11 0 00:00: 00 11-19 00:00 :00 No [id number] TAKE 1 TABLET BY MOUTH EVERY DAY [facility] metoprolol succinate XL 50 mg 24 hr tablet 2022-1118 00:00: 00 11-19 00:00 :00 No [id number] 50mg Take 1 tablet by mouth in the morning. [facility] gabapentin 300 mg capsule 2022-11 0-05 00:00: 00 11-12 00:00 :00 No [id number] 300mg Take 1 capsule by mouth in the morning and 1 capsule in the evening. [facility] gabapentin (Neurontin) 300 MG capsule 08-12 00:00: 00 08-12 04:59 :00 No [id number] 300mg Take 1 capsule (300 mg total) by mouth every night. [facility] HYDROcodone -acetaminop hen 5-325 mg tablet 9- 00:00: 00 02-17 00:00 :00 No [id number] 1{tbl} Take 1 tablet by mouth 2 (two) times daily as needed for Pain (scale 4-6). Indication s: chronic pain [facility] PAROXETINE 40 mg tablet 9-13 00:00: 00 12-04 00:00 :00 No [id number] TAKE 1 TABLET BY MOUTH EVERY DAY [facility] HYDROcodone -acetaminop hen 5-325 mg tablet 8-14 00:00: 00 08-07 00:00 :00 No [id number] 1{tbl} Take 1 tablet by mouth 2 (two) times daily as needed for Pain (scale 4-6). Indication s: chronic pain [facility] isosorbide dinitrate (Isordil) 10 MG tablet 8- 00:00: 00 Yes 10mg Q8H Take 10 mg by mouth every 8 (eight) hours. [facility] HYDROcodone -acetaminop hen 5-325 mg tablet 06-11 00:00: 00 07-07 00:00 :00 No [id number] 1{tbl} Take 1 tablet by mouth 2 (two) times daily as needed for Pain (scale 4-6). Indication s: chronic pain [facility] OXcarbazepi ne 300 mg tablet 05-28 00:00: 00 Yes 300mg Take 1 tablet by mouth in the morning. [facility] OXcarbazepi ne (Trileptal) 300 MG tablet 05-28 00:00: 00 Yes 1{tbl} Take 1 tablet by mouth 1 (one) time each day in the morning. [facility] isosorbide dinitrate 10 mg tablet 05-27 00:00: 00 Yes TAKE 1 TABLET BY MOUTH EVERY 8 HOURS FOR 30 DAYS [facility] minocycline 100 mg capsule 05-27 00:00: 00 Yes TAKE 1 CAPSULE BY MOUTH EVERY 12 HOURS FOR 6 DAYS [facility] hydrALAZINE (Apresoline ) 10 MG tablet 05-27 00:00: 00 Yes 25mg Q6H Take 25 mg by mouth every 6 (six) hours. [facility] furosemide (Lasix) 80 MG tablet 05-27 00:00: 00 Yes 80mg Q2D Take 80 mg by mouth every other day. [facility] metoprolol succinate XL 50 mg 24 hr tablet 05-27 00:00: 00 03-02 00:00 :00 No 50mg Take 1 tablet by mouth in the morning. [facility] HYDROcodone -acetaminop hen 5-325 mg tablet 6-28 00:00: 00 06-11 00:00 :00 No [id number] 1{tbl} Take 1 tablet by mouth 2 (two) times daily as needed for Pain (scale 4-6). Indication s: chronic pain [facility] fenofibrate micronized (Lofibra) 200 MG capsule 05-09 00:00: 00 Yes 200mg QD Take 200 mg by mouth 1 (one) time each day with breakfast. [facility] pravastatin (Pravachol) 80 MG tablet 05-09 00:00: 00 Yes 80mg Take 80 mg by mouth every night. [facility] CARVEDILOL 12.5 mg tablet 04-25 00:00: 00 03-02 00:00 :00 No [id number] TAKE 1 TABLET BY MOUTH TWICE A DAY [facility] FENOFIBRATE MICRONIZED 200 mg capsule 04-25 00:00: 00 09-30 00:00 :00 No [id number] 200mg TAKE 1 CAPSULE BY MOUTH DAILY WITH BREAKFAST. [facility] PRAVASTATIN 80 mg tablet 04-25 00:00: 00 09-30 00:00 :00 No [id number] TAKE 1 TABLET BY MOUTH EVERYDAY AT BEDTIME [facility] ENTRESTO 24-26 mg tablet 04-25 00:00: 00 06-28 00:00 :00 No TAKE 1 TABLET BY MOUTH IN THE MORNING AND IN THE EVENING [facility] PAROXETINE 40 mg tablet 04-25 00:00: 00 08-06 00:00 :00 No [id number] TAKE 1 TABLET BY MOUTH EVERY DAY [facility] HYDROcodone -acetaminop hen 5-325 mg tablet 5-24 00:00: 00 05-21 00:00 :00 No [id number] 1{tbl} Take 1 tablet by mouth 2 (two) times daily as needed for Pain (scale 4-6). Indication s: chronic pain [facility] ENTRESTO 24-26 mg tablet 4-20 00:00: 00 04-25 00:00 :00 No TAKE 1 TABLET BY MOUTH IN THE MORNING AND IN THE EVENING [facility] furosemide 20 mg tablet -12 00:00: 00 02-17 00:00 :00 No [id number] 20mg Take 1 tablet by mouth in the morning. [facility] HYDROcodone -acetaminop hen 5-325 mg tablet 03-05 00:00: 00 04-16 00:00 :00 No [id number] 1{tbl} Take 1 tablet by mouth 2 (two) times daily as needed for Pain (scale 4-6). Indication s: chronic pain [facility] CARVEDILOL 12.5 mg tablet 02-14 00:00: 00 04-25 00:00 :00 No [id number] TAKE 1 TABLET BY MOUTH TWICE A DAY [facility] PAROXETINE 40 mg tablet 02-14 00:00: 00 04-25 00:00 :00 No [id number] TAKE 1 TABLET BY MOUTH EVERY DAY [facility] FENOFIBRATE MICRONIZED 200 mg capsule 02-14 00:00: 00 04-25 00:00 :00 No [id number] 200mg TAKE 1 CAPSULE BY MOUTH DAILY WITH BREAKFAST. [facility] PRAVASTATIN 80 mg tablet 02-14 00:00: 00 04-25 00:00 :00 No [id number] TAKE 1 TABLET BY MOUTH EVERYDAY AT BEDTIME [facility] [facility] HYDROcodone -acetaminop hen 5-325 mg tablet 02-13 00:00: 00 03-05 00:00 :00 No [id number] 1{tbl} Take 1 tablet by mouth 2 (two) times daily as needed for Pain (scale 4-6). Indication s: chronic pain [facility] apixaban (Eliquis) 2.5 MG tablet 02-12 00:00: 00 Yes 1{tbl} Q.5D Take 1 tablet by mouth 2 (two) times a day, in the morning and at bedtime. [facility] ELIQUIS 2.5 mg tablet 02-12 00:00: 00 12-17 00:00 :00 No 2.5mg Take 1 tablet by mouth in the morning and 1 tablet in the evening. [facility] sacubitriL- valsartan (ENTRESTO) 24-26 mg tablet 3-20 00:00: 00 03-13 00:00 :00 No 1{tbl} Take 1 tablet by mouth in the morning and 1 tablet in the evening. [facility] PANTOPRAZOL E 40 mg EC tablet 3-07 00:00: 00 12-17 00:00 :00 No [id number] TAKE 1 TABLET BY MOUTH EVERY DAY IN THE MORNING [facility] HYDROcodone -acetaminop hen 5-325 mg tablet 2-16 00:00: 00 02-13 00:00 :00 No [id number] 1{tbl} Take 1 tablet by mouth 2 (two) times daily as needed for Pain (scale 4-6). Indication s: chronic pain [facility] HYDROcodone -acetaminop hen 5-325 mg tablet 1-19 00:00: 00 01-09 00:00 :00 No [id number] 1{tbl} Take 1 tablet by mouth 2 (two) times daily as needed for Pain (scale 4-6). Indication s: chronic pain [facility] acidophilus 100 million cell tablet 1-10 00:00: 00 Yes [id number] 1g Take 1 tablet by mouth in the morning and 1 tablet in the evening. [facility] acidophilus 100 million cell tablet 1-10 00:00: 00 Yes [id number] 1g Take 1 tablet by mouth in the morning and 1 tablet in the evening. [facility] apixaban 2.5 mg tablet 1-10 00:00: 00 01-03 05:59 :00 No 1358 2.5mg Take 1 tablet by mouth in the morning and 1 tablet in the evening. Do all this for 30 days. Indication s: atrial fibrillati on [facility] dicyclomine 10 mg capsule 1-10 00:00: 00 12-14 05:59 :00 No [id number] 10mg Take 1 capsule by mouth 4 (four) times daily for 10 days. [facility] vancomycin 125 mg capsule 12-03 00:00: 00 12-10 05:59 :00 No [id number] 125mg Take 1 capsule by mouth 4 (four) times daily for 6 days. [facility] levoFLOXaci n 500 mg tablet 12-03 00:00: 00 12-08 05:59 :00 No [id number] 500mg Take 1 tablet by mouth every 24 (twenty-fo ur) hours for 4 days. [facility] cefTRIAXone (ROCEPHIN) 1,000 mg in NaCl 0.9% (NS) 50 mL MINI-BAG 12-01 20:15: 00 12-06 20:14 :00 No 1000mg 1,000 mg, IV Piggyback, Q24H ABX, 5 doses, First dose on 12/01/22 at 1415, Last dose on [place] 12/05/22 at 1415, Administer over 30 Minutes, 50 mL
Reas on for Anti-Infec tive: Documented Infection< br>Documen seth Infection Site: Urine
D uration of Therapy: 7 days [facility] dicyclomine (BENTYL) capsule 10 mg 11-30 22:00: 00 Yes 10mg 10 mg, Oral, QID, First dose on 11/30/22 at 1600, Until Discontinu ed, Routine [facility] KCL (KLOR-CON M20) tablet 40 mEq 11-30 15:30: 00 11-30 16:28 :00 No 40meq 40 mEq, Oral, ONCE, 1 dose, On 11/30/22 at 0930, Routine [facility] KCL 20 mEq/15 mL solution 40 mEq 11-29 16:00: 00 11-29 15:09 :00 No 40meq 40 mEq, Oral, ONCE, 1 dose, On Fri11/29/22 at 1000, Routine [facility] magnesium sulfate in water 2 gram/50 mL (4 %) infusion 2 g 11-29 15:00: 00 11-29 17:45 :00 No 2g 2 g, IV Piggyback, Administer over 60 Minutes, Q1H, 2 doses, First dose on Fri11/29/22 at 0900, Last dose on Fri11/29/22 at 1000, Routine [facility] vancomycin (VANCOCIN) capsule 125 mg 11-29 14:00: 00 Yes 125mg 125 mg, Oral, QID, First dose on Fri11/29/22 at 0800, Until Discontinu ed, COURTNEY
Fa culty member approving Non-formul matt medication : MEGADC
Reason for non-formul matt use: SPECIFIC INDICATION FOR NONFORMULA RY PRODUCT
Reason for Anti-Infec tive: Empiric Therapy for Suspected Infection< br>Empiric Therapy Site: Abdominal< br>Duratio n of therapy: 5 days [facility] NaCl 0.9% (NS) IV infusion 1,000 mL 11-29 13:45: 00 11-30 01:44 :00 No 1000mL at 75 mL/hr, IV Infusion, ONCE, 1 dose, On Fri11/29/22 at 0745, Routine [facility] Sliding Scale Insulin-Reg ular + Fsbg Testing 11-29 03:00: 00 Yes Subcutaneo us, AC+HS, First dose on Fri11/28/22 at 2100, Until Discontinu ed, Routine [facility] apixaban (ELIQUIS) tablet 2.5 mg 11-29 02:00: 00 Yes 1358 2.5mg 2.5 mg, Oral, BID, First dose (after last modificati on) on Fri11/28/22 at 2000, Until Discontinu ed, Routine
Indicatio ns: Non-Valvul ar Atrial Fibrillati on [facility] NaCl 0.9% (NS) IV infusion 1,000 mL 11-28 23:45: 00 11-29 00:04 :55 No 1000mL at 75 mL/hr, IV Infusion, ONCE, 1 dose, On Fri11/28/22 at 1745, Routine [facility] glucagon (GLUCAGEN DIAGNOSTIC KIT) injection 1 mg 11-28 23:05: 30 Yes 1mg 1 mg, Intramuscu lar, PRN, Starting on [place] 11/28/22 at 1705, Until Discontinu ed, COURTNEY, Blood Glucose < or = 70 mg/dL and patient is unable to swallow or has mental changes. [facility] dextrose 50 % in water (D50W) injection 25 mL 11-28 23:05: 30 Yes 25mL 25 mL, Slow IV Push, PRN, Starting on [place] 11/28/22 at 1705, Until Discontinu ed, COURTNEY, Blood Glucose < or = 70 mg/dL and patient is unable to swallow or has mental status changes. [facility] acetaminoph en (TYLENOL) tablet 650 mg 11-28 22:55: 46 Yes 650mg 650 mg, Oral, Q6HPRN, Starting on [place] 11/28/22 at 1655, Until Discontinu ed, Routine, Pain (scale 1-3) [facility] KCL (KLOR-CON M20) tablet 40 mEq 11-28 18:45: 00 11-28 18:46 :00 No 40meq 40 mEq, Oral, ONCE, 1 dose, On [place] 11/28/22 at 1245, COURTNEY [facility] NaCl 0.9% (NS) bolus infusion 1,000 mL 11-28 18:00: 00 11-28 18:13 :00 No 1000mL at 999 mL/hr, 1,000 mL, IV Infusion, ONCE, 1 dose, On [place] 11/28/22 at 1200, STAT [facility] HYDROcodone -acetaminop hen 5-325 mg tablet 2021-11 00:00: 00 12-12 00:00 :00 No [id number] 1{tbl} Take 1 tablet by mouth 2 (two) times daily as needed for Pain (scale 4-6). Indication s: chronic pain [facility] hydrocortis one (ANUSOL-HC) suppository 25 mg 2021-11 02:00: 00 Yes 25mg 25 mg, Rectal, BID, First dose on 11/02/22 at 2000, Until Discontinu ed, Routine [facility] ferrous sulfate 325 mg (65 mg iron) tablet 2021-11 00:00: 00 12-04 05:59 :00 No [id number] 325mg Take 1 tablet by mouth in the morning for 30 days. [facility] acidophilus 100 million cell tablet 2021-11 00:00: 00 11-14 05:59 :00 No [id number] 1g Take 1 tablet by mouth in the morning and 1 tablet in the evening. Do all this for 10 days. [facility] vancomycin 125 mg capsule 2021-11 00:00: 00 11-11 05:59 :00 No [id number] 125mg Take 1 capsule by mouth 4 (four) times daily for 7 days. [facility] PARoxetine (PAXIL) tablet 40 mg 2021-11 15:00: 00 Yes 40mg 40 mg, Oral, DAILY, First dose on Fri11/01/22 at 0900, Until Discontinu ed, Routine [facility] pantoprazol e (PROTONIX) EC tablet 40 mg 2021-11 15:00: 00 Yes 40mg 40 mg, Oral, QAM, First dose on Fri11/01/22 at 0900, Until Discontinu ed, Routine [facility] amLODIPine (NORVASC) tablet 5 mg 2021-11 15:00: 00 Yes 5mg 5 mg, Oral, DAILY, First dose on Fri11/01/22 at 0900, Until Discontinu ed, Routine [facility] Sliding Scale Insulin - Lispro (HumaLOG) + Fsbg Testing 2021-11 14:00: 00 Yes Subcutaneo us, TID MEALS, First dose on Fri11/01/22 at 0800, Until Discontinu ed, Routine [facility] potassium chloride in water 10 mEq/100 mL RTU 10 mEq 2021-11 04:00: 00 11-01 08:17 :00 No 10meq 10 mEq, IV Piggyback, Q1H, 4 doses, First dose on [place] 10/31/22 at 2200, Last dose on Fri11/01/22 at 0100, Administer over 60 Minutes, 100 mL [facility] magnesium sulfate in water 2 gram/50 mL (4 %) infusion 2 g 2021-11 04:00: 00 11-01 06:05 :00 No 2g 2 g, IV Piggyback, Administer over 60 Minutes, Q1H, 2 doses, First dose on Fri10/31/22 at 2200, Last dose on Fri10/31/22 at 2300, Routine [facility] KCL (KLOR-CON M20) tablet 40 mEq 2021-11 03:30: 00 11-01 04:19 :00 No 40meq 40 mEq, Oral, ONCE, 1 dose, On Fri10/31/22 at 2130, Routine [facility] vancomycin (FIRVANQ) 50 mg/mL oral solution 125 mg 2021-11 02:30: 00 11-11 01:59 :00 No 125mg 125 mg, Oral, QID, 40 doses, First dose on Fri10/31/22 at 2030, Last dose on Fri11/10/22 at 1600, Routine
Reason for Anti-Infec tive: Documented Infection< br>Documen seth Infection Site: Abdominal< br>Duratio n of Therapy: 10 days [facility] carvediloL (COREG) tablet 12.5 mg 2021-11 02:00: 00 Yes 12.5mg 12.5 mg, Oral, BID, First dose on Fri10/31/22 at 1999, Until Discontinu ed, Routine [facility] apixaban (ELIQUIS) tablet 5 mg 2021-11 02:00: 00 Yes 1358 5mg 5 mg, Oral, BID, First dose on Fri10/31/22 at 1999, Until Discontinu ed, Routine
Indicatio ns: DVT/PE [facility] glucagon (GLUCAGEN DIAGNOSTIC KIT) injection 1 mg 2021-11 23:27: 12 Yes 1mg 1 mg, Intramuscu lar, PRN, Starting on Fri10/31/22 at 1727, Until Discontinu ed, COURTNEY, Blood Glucose < or = 70 mg/dL and patient is unable to swallow or has mental changes. [facility] dextrose 50 % in water (D50W) injection 25 mL 2021-11 23:27: 12 Yes 25mL 25 mL, Slow IV Push, PRN, Starting on [place] 10/31/22 at 1727, Until Discontinu ed, COURTNEY, Blood Glucose < or = 70 mg/dL and patient is unable to swallow or has mental status changes. [facility] HYDROcodone -acetaminop hen (NORCO) 10-325 mg tablet 1 tablet 2021-11 23:27: 04 Yes 1{tbl} 1 tablet, Oral, Q6HPRN, Starting on [place] 10/31/22 at 1727, Until Discontinu ed, Routine, Pain (scale 7-10) [facility] acetaminoph en (TYLENOL) tablet 650 mg 2021-11 23:26: 58 Yes 650mg 650 mg, Oral, Q6HPRN, Starting on [place] 10/31/22 at 1726, Until Discontinu ed, Routine, Pain (scale 1-3) [facility] NaCl 0.9% (NS) 1000 mL + KCL 20 mEq 2021-11 18:15: 00 11-01 03:16 :55 No IV Infusion, at 150 mL/hr, CONTINUOUS , Starting on [place] 10/31/22 at 1215, Until [place] 10/31/22 at 2116, COURTNEY [facility] apixaban (ELIQUIS) 5 mg tablet 2021-11 00:00: 00 12-03 00:00 :00 No 1358 TAKE 1 TABLET BY MOUTH TWICE A DAY 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 [facility] metroNIDAZO LE 500 mg tablet 2021-11 00:00: 00 11-03 00:00 :00 No [id number] 500mg Take 1 tablet by mouth every 8 (eight) hours. [facility] HYDROcodone -acetaminop hen 5-325 mg tablet 2021-11 00:00: 00 11-11 00:00 :00 No 2745 1{tbl} Take 1 tablet by mouth 2 (two) times daily as needed for Pain (scale 4-6). Indication s: chronic pain [facility] PRAVASTATIN 80 mg tablet 2021-11 00:00: 00 02-14 00:00 :00 No [id number] TAKE 1 TABLET BY MOUTH EVERYDAY AT BEDTIME [facility] CARVEDILOL 12.5 mg tablet 2021-11 00:00: 00 02-14 00:00 :00 No [id number] TAKE 1 TABLET BY MOUTH TWICE A DAY [facility] FENOFIBRATE MICRONIZED 200 mg capsule 2021-11 00:00: 00 02-14 00:00 :00 No [id number] 200mg TAKE 1 CAPSULE BY MOUTH DAILY WITH BREAKFAST. [facility] PAROXETINE 40 mg tablet 2021-11 00:00: 00 02-14 00:00 :00 No [id number] TAKE 1 TABLET BY MOUTH EVERY DAY [facility] METFORMIN 500 mg tablet 2021-11 00:00: 00 12-03 00:00 :00 No [id number] TAKE 1 TABLET BY MOUTH TWICE A DAY WITH MEALS [facility] ciprofloxac in HCl 500 mg tablet 2021-11 00:00: 00 10-30 00:00 :00 No 500mg Take 500 mg by mouth in the morning and 500 mg in the evening. [facility] metroNIDAZO LE 500 mg tablet 2021-11 00:00: 00 10-30 00:00 :00 No 500mg Take 500 mg by mouth every 8 (eight) hours. [facility] HYDROcodone -acetaminop hen 5-325 mg tablet 08-19 00:00: 00 10-15 00:00 :00 No 2745 1{tbl} Take 1 tablet by mouth 2 (two) times daily as needed for Pain (scale 4-6). Indication s: chronic pain [facility] TROSPIUM 20 mg tablet -16 00:00: 00 12-17 00:00 :00 No [id number] TAKE 1 TABLET BY MOUTH IN THE MORNING AND 1 TABLET IN THE EVENING. 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 INDICATION S: TO 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 Indication s: atrial fibrillati on [facility] neomycin-po lymyxin-dex amethasone (MAXITROL) 3.5 mg/g-10,000 unit/g-0.1 % ophthalmic ointment 07-17 15:52: 00 07-17 15:59 :09 No PRN, Starting on Fri07/17/22 at 1052, Until Fri07/17/22 at 1059, Routine, Intra-op [facility] sodium chloride (NS) injection 07-17 15:51: 00 07-17 15:59 :09 No PRN, Starting on Fri07/17/22 at 1051, Until Fri07/17/22 at 1059, Routine, Intra-op [facility] dexamethaso ne (DECADRON PHOSPHATE) injection 07-17 15:51: 00 07-17 15:59 :09 No PRN, Starting on Fri07/17/22 at 1051, Until Fri07/17/22 at 1059, Routine, Intra-op [facility] ceFAZolin (ANCEF) injection 07-17 15:51: 00 07-17 15:59 :09 No PRN, Starting on Fri07/17/22 at 1051, Until Fri07/17/22 at 1059, COURTNEY, Intra-op [facility] carbachoL (MIOSTAT) 0.01 % intraocular injection 07-17 15:49: 00 07-17 15:59 :09 No PRN, Starting on Fri07/17/22 at 1049, Until Fri07/17/22 at 1059, Routine, Intra-op [facility] EPINEPHrine 1:1,000 (1 mg/mL) (ADRENALIN) injection 07-17 15:37: 00 07-17 15:59 :09 No PRN, Starting on Fri07/17/22 at 1037, Until Fri07/17/22 at 1059, Routine, Intra-op [facility] chondroitin sulf-sod hyaluronate (DUOVISC VISCO ELASTIC) intraocular injection 07-17 15:37: 00 07-17 15:59 :09 No PRN, Starting on Fri07/17/22 at 1037, Until Fri07/17/22 at 1059, Routine, Intra-op [facility] balanced salt irrig soln comb1 (BSS PLUS) ophthalmic solution 500 mL bag 07-17 15:37: 00 07-17 15:59 :09 No PRN, Starting on Fri07/17/22 at 1037, Until Fri07/17/22 at 1059, Routine, Intra-op [facility] water for irrigation irrigation solution 07-17 15:33: 00 07-17 15:59 :09 No PRN, Starting on Fri07/17/22 at 1033, Until Fri07/17/22 at 1059, Routine, Intra-op [facility] Hyaluronida se, Human Recomb. (HYLENEX) injection 07-17 15:30: 00 07-17 15:59 :09 No PRN, Starting on Fri07/17/22 at 1030, Until Fri07/17/22 at 1059, Routine, Intra-op [facility] eye block syringe 11 mL 07-17 15:30: 00 07-17 15:59 :09 No PRN, Starting on Fri07/17/22 at 1030, Until Fri07/17/22 at 1059, [facility]-op [facility] propofoL IV infusion 07-17 15:26: 00 07-17 15:58 :34 No Intravenou s, ONCE INTRA PROCEDURE, Starting on Fri07/17/22 at 1026, Until Fri07/17/22 at 1058, Routine, Intra-op [facility] labetaloL (NORMODYNE) injection 07-17 15:21: 00 07-17 15:58 :34 No Slow IV Push, ONCE INTRA PROCEDURE, Starting on Fri07/17/22 at 1021, Until Fri07/17/22 at 1058, Routine, Intra-op [facility] midazolam (VERSED) injection 07-17 15:21: 00 07-17 15:58 :34 No IV Push, ONCE INTRA PROCEDURE, Starting on Fri07/17/22 at 1021, Until Fri07/17/22 at 1058, Routine, Intra-op [facility] lactated ringers IV infusion 07-17 15:21: 00 07-17 15:58 :34 No Intravenou s, CONTINUOUS PRN, Starting on Fri07/17/22 at 1021, Until Fri07/17/22 at 1058, Routine, Intra-op [facility] ketorolac (ACULAR) 0.5 % ophthalmic solution 1 Drop 07-17 13:45: 00 07-17 13:49 :00 No 1[drp] 1 Drop, Right Eye, ONCE, 1 dose, On Fri07/17/22 at 0845, Routine, [facility] tropicamide (MYDRIACYL) 1 % ophthalmic drops 1 Drop 07-17 13:45: 00 07-17 13:49 :00 No 1[drp] 1 Drop, Right Eye, ONCE, 1 dose, On Fri07/17/22 at 0845, Routine, DSU Pre-op [facility] phenylephri ne (IVIS-SYNEPH RINE) 2.5 % ophthalmic drops 1 Drop 07-17 13:45: 00 07-17 13:49 :00 No 1[drp] 1 Drop, Right Eye, ONCE, 1 dose, On Fri07/17/22 at 0845, Routine, DSU Pre-op [facility] cyclopentol ate (CYCLOGYL) 1 % ophthalmic drops 1 Drop 07-17 13:45: 00 07-17 13:50 :00 No 1[drp] 1 Drop, Right Eye, ONCE, 1 dose, On Fri07/17/22 at 0845, Routine, DSU Pre-op [facility] lactated ringers IV infusion 1,000 mL 07-17 13:45: 00 07-17 14:14 :00 No 1000mL at 42 mL/hr, 1,000 mL, IV Infusion, ONCE, 1 dose, On Fri07/17/22 at 0845, Routine, DSU Pre-op [facility] HYDROcodone -acetaminop hen 5-325 mg tablet 07-15 00:00: 00 08-19 00:00 :00 No 2745 1{tbl} Take 1 tablet by mouth 2 (two) times daily as needed for Pain (scale 4-6). Indication s: chronic pain [facility] amLODIPine (Norvasc) 5 MG tablet 07-02 00:00: 00 Yes 1{tbl} QD Take 1 tablet by mouth 1 (one) time each day. [facility] trospium 20 mg tablet 07-02 00:00: 00 08-09 00:00 :00 No [id number] 20mg Take 1 tablet by mouth in the morning and 1 tablet in the evening. [facility] HYDROcodone -acetaminop hen 5-325 mg tablet - 00:00: 00 07-15 00:00 :00 No 2745 1{tbl} Take 1 tablet by mouth 2 (two) times daily as needed for Pain (scale 4-6). Indication s: chronic pain [facility] HYDROcodone -acetaminop hen 5-325 mg tablet -20 00:00: 00 Yes 2745 1{tbl} Take 1 tablet by mouth 2 (two) times daily as needed for Pain (scale 4-6). Indication s: chronic pain [facility] AMLODIPINE 5 mg tablet 04-23 00:00: 00 07-02 00:00 :00 No [id number] TAKE 1 TABLET BY MOUTH EVERY DAY [facility] HYDROcodone -acetaminop hen 5-325 mg tablet 04-23 00:00: 00 05-13 00:00 :00 No 2745 1{tbl} Take 1 tablet by mouth 2 (two) times daily as needed for Pain (scale 4-6). Indication s: chronic pain [facility] sulfamethox azole-trime thoprim (BACTRIM DS) 800-160 mg per tablet 04-23 00:00: 00 04-29 04:59 :00 No [id number] 1{tbl} Take 1 tablet by mouth 2 (two) times daily for 5 days. [facility] trospium 20 mg tablet 04-18 00:00: 00 07-02 00:00 :00 No [id number] 20mg Take 1 tablet by mouth 2 (two) times daily. [facility] oxybutynin 10 mg 24 hr tablet 04-17 00:00: 00 04-17 00:00 :00 No [id number] 10mg Take 1 tablet by mouth daily for 1 day. [facility] pantoprazol e 40 mg EC tablet 04-03 00:00: 00 01-28 00:00 :00 No [id number] 40mg Take 1 tablet by mouth every morning. [facility] pravastatin 80 mg tablet 04-03 00:00: 00 10-11 00:00 :00 No [id number] 80mg Take 1 tablet by mouth at bedtime. [facility] PARoxetine 40 mg tablet 04-03 00:00: 00 10-11 00:00 :00 No [id number] 40mg Take 1 tablet by mouth daily. [facility] metFORMIN 500 mg tablet 04-03 00:00: 00 10-11 00:00 :00 No [id number] 500mg Take 1 tablet by mouth 2 (two) times daily with meals. [facility] carvediloL 12.5 mg tablet 04-03 00:00: 00 10-11 00:00 :00 No [id number] 12.5mg Take 1 tablet by mouth 2 (two) times daily. [facility] fenofibrate micronized 200 mg capsule 04-03 00:00: 00 10-11 00:00 :00 No [id number] 200mg Take 1 capsule by mouth daily with breakfast. 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 Indication s: chronic pain [facility] AMLODIPINE 5 mg tablet 3-03 00:00: 00 04-23 00:00 :00 No [id number] TAKE 1 TABLET BY MOUTH EVERY DAY [facility] Immunizations Ordered Immunization Name Filled Immunization Name Date Status Comments Source Influenza Virus Vaccine,quad Im,preserve Free 65+ (FLUAD) 2023-08-28 00:00:00 Completed [facility] Pneumococcal 20 Conjugate, PCV20 (Prevnar 20) 2023-08-28 00:00:00 Completed Influenza Virus Vaccine,quad Im,preserve Free 65+ (FLUAD) 2023-08-28 00:00:00 Completed [facility] Pneumococcal 20 Conjugate, PCV20 (Prevnar 20) 2023-08-28 00:00:00 Completed SARS-COV-2 COVID-19 PFIZER JILLIAN-SUCROSE VACCINE (VENEGAS TOP) 2022-04-03 00:00:00 Completed [facility] SARS-COV-2 COVID-19 PFIZER JILLIAN-SUCROSE VACCINE (VENEGAS TOP) 2022-04-03 00:00:00 Completed [facility] SARS-COV-2 COVID-19 PFIZER JILLIAN-SUCROSE VACCINE (VENEGAS TOP) 2022-04-03 00:00:00 Completed [facility] SARS-COV-2 COVID-19 PFIZER JILLIAN-SUCROSE VACCINE (VENEGAS TOP) 2022-04-03 00:00:00 Completed [facility] SARS-COV-2 COVID-19 PFIZER JILLIAN-SUCROSE VACCINE (VENEGAS TOP) 2022-04-03 00:00:00 Completed [facility] SARS-COV-2 COVID-19 PFIZER JILLIAN-SUCROSE VACCINE (VENEGAS TOP) 2022-04-03 00:00:00 Completed [facility] SARS-COV-2 COVID-19 PFIZER JILLIAN-SUCROSE VACCINE (VENEGAS TOP) 2022-04-03 00:00:00 Completed [facility] SARS-COV-2 COVID-19 PFIZER JILLIAN-SUCROSE VACCINE (VENEGAS TOP) 2022-04-03 00:00:00 Completed [facility] SARS-COV-2 COVID-19 PFIZER JILLIAN-SUCROSE VACCINE (VENEGAS TOP) 2022-04-03 00:00:00 Completed [facility] SARS-COV-2 COVID-19 PFIZER JILLIAN-SUCROSE VACCINE (VENEGAS TOP) 2022-04-03 00:00:00 Completed [facility] SARS-COV-2 COVID-19 PFIZER JILLIAN-SUCROSE VACCINE (VENEGAS TOP) 2022-04-03 00:00:00 Completed [facility] SARS-COV-2 COVID-19 PFIZER JILLIAN-SUCROSE VACCINE (VENEGAS TOP) 2022-04-03 00:00:00 Completed [facility] SARS-COV-2 COVID-19 PFIZER JILLIAN-SUCROSE VACCINE (VENEGAS TOP) 2022-04-03 00:00:00 Completed [facility] SARS-COV-2 COVID-19 PFIZER JILLIAN-SUCROSE VACCINE (VENEGAS TOP) 2022-04-03 00:00:00 Completed [facility] SARS-COV-2 COVID-19 PFIZER JILLIAN-SUCROSE VACCINE (VENEGAS TOP) 2022-04-03 00:00:00 Completed [facility] SARS-COV-2 COVID-19 PFIZER JILLIAN-SUCROSE VACCINE (VENEGAS TOP) 2022-04-03 00:00:00 Completed [facility] SARS-COV-2 COVID-19 PFIZER JILLIAN-SUCROSE VACCINE (VENEGAS TOP) 2022-04-03 00:00:00 Completed [facility] SARS-COV-2 COVID-19 PFIZER JILLIAN-SUCROSE VACCINE (VENEGAS TOP) 2022-04-03 00:00:00 Completed [facility] SARS-COV-2 COVID-19 PFIZER JILLIAN-SUCROSE VACCINE (VENEGAS TOP) 2022-04-03 00:00:00 Completed [facility] SARS-COV-2 COVID-19 PFIZER JILLIAN-SUCROSE VACCINE (VENEGAS TOP) 2022-04-03 00:00:00 Completed [facility] SARS-COV-2 COVID-19 PFIZER JILLIAN-SUCROSE VACCINE (VENEGAS TOP) 2022-04-03 00:00:00 [facility] [facility] SARS-COV-2 COVID-19 PFIZER JILLIAN-SUCROSE VACCINE (VENEGAS TOP) 2022-04-03 00:00:00 Completed [facility] SARS-COV-2 COVID-19 PFIZER JILLIAN-SUCROSE VACCINE (VENEGAS TOP) 2022-04-03 00:00:00 Completed [facility] SARS-COV-2 COVID-19 PFIZER JILLIAN-SUCROSE VACCINE (VENEGAS TOP) 2022-04-03 00:00:00 Completed [facility] SARS-COV-2 COVID-19 PFIZER JILLIAN-SUCROSE VACCINE (VENEGAS TOP) 2022-04-03 00:00:00 Completed [facility] SARS-COV-2 COVID-19 PFIZER JILLIAN-SUCROSE VACCINE (VENEGAS TOP) 2022-04-03 00:00:00 Completed [facility] SARS-COV-2 COVID-19 PFIZER JILLIAN-SUCROSE VACCINE (VENEGAS TOP) 2022-04-03 00:00:00 Completed [facility] SARS-COV-2 COVID-19 PFIZER JILLIAN-SUCROSE VACCINE (VENEGAS TOP) 2022-04-03 00:00:00 Completed [facility] SARS-COV-2 COVID-19 PFIZER JILLIAN-SUCROSE VACCINE (VENEGAS TOP) 2022-04-03 00:00:00 Completed [facility] SARS-COV-2 COVID-19 PFIZER JILLIAN-SUCROSE VACCINE (VENEGAS TOP) 2022-04-03 00:00:00 Completed [facility] SARS-COV-2 COVID-19 PFIZER JILLIAN-SUCROSE VACCINE (VENEGAS TOP) 2022-04-03 00:00:00 Completed [facility] SARS-COV-2 COVID-19 PFIZER JILLIAN-SUCROSE VACCINE (VENEGAS TOP) 2022-04-03 00:00:00 Completed [facility] SARS-COV-2 COVID-19 PFIZER JILLIAN-SUCROSE VACCINE (VENEGAS TOP) 2022-04-03 00:00:00 Completed [facility] SARS-COV-2 COVID-19 PFIZER JILLIAN-SUCROSE VACCINE (VENEGAS TOP) 2022-04-03 00:00:00 Completed [facility] SARS-COV-2 COVID-19 PFIZER JILLIAN-SUCROSE VACCINE (VENEGAS TOP) 2022-04-03 00:00:00 Completed [facility] SARS-COV-2 COVID-19 PFIZER JILLIAN-SUCROSE VACCINE (VENEGAS TOP) 2022-04-03 00:00:00 Completed [facility] SARS-COV-2 COVID-19 PFIZER JILLIAN-SUCROSE VACCINE (VENEGAS TOP) 2022-04-03 00:00:00 Completed [facility] SARS-COV-2 COVID-19 PFIZER JILLIAN-SUCROSE VACCINE (VENEGAS TOP) 2022-04-03 00:00:00 Completed [facility] SARS-COV-2 COVID-19 PFIZER JILLIAN-SUCROSE VACCINE (VENEGAS TOP) 2022-04-03 00:00:00 Completed [facility] SARS-COV-2 COVID-19 PFIZER JILLIAN-SUCROSE VACCINE (VENEGAS TOP) 2022-04-03 00:00:00 Completed [facility] SARS-COV-2 COVID-19 PFIZER JILLIAN-SUCROSE VACCINE (VENEGAS TOP) 2022-04-03 00:00:00 Completed [facility] SARS-COV-2 COVID-19 PFIZER JILLIAN-SUCROSE VACCINE (VENEGAS TOP) 2022-04-03 00:00:00 Completed [facility] SARS-COV-2 COVID-19 PFIZER JILLIAN-SUCROSE VACCINE (VENEGAS TOP) 2022-04-03 00:00:00 Completed [facility] SARS-COV-2 COVID-19 PFIZER JILLIAN-SUCROSE VACCINE (VENEGAS TOP) 2022-04-03 00:00:00 Completed [facility] SARS-COV-2 COVID-19 PFIZER JILLIAN-SUCROSE VACCINE (VENEGAS TOP) 2022-04-03 00:00:00 Completed [facility] SARS-COV-2 COVID-19 PFIZER JILLIAN-SUCROSE VACCINE (VENEGAS TOP) 2022-04-03 00:00:00 Completed [facility] SARS-COV-2 COVID-19 PFIZER JILLIAN-SUCROSE VACCINE (VENEGAS TOP) 2022-04-03 00:00:00 Completed [facility] SARS-COV-2 COVID-19 PFIZER JILLIAN-SUCROSE VACCINE (VENEGAS TOP) 2022-04-03 00:00:00 Completed [facility] SARS-COV-2 COVID-19 PFIZER JILLIAN-SUCROSE VACCINE (VENEGAS TOP) 2022-04-03 00:00:00 Completed [facility] SARS-COV-2 COVID-19 PFIZER JILLIAN-SUCROSE VACCINE (VENEGAS TOP) 2022-04-03 00:00:00 Completed [facility] SARS-COV-2 COVID-19 PFIZER JILLIAN-SUCROSE VACCINE (VENEGAS TOP) 2022-04-03 00:00:00 Completed [facility] SARS-COV-2 COVID-19 PFIZER JILLIAN-SUCROSE VACCINE (VENEGAS TOP) 2022-04-03 00:00:00 Completed [facility] SARS-COV-2 COVID-19 PFIZER JILLIAN-SUCROSE VACCINE (VENEGAS TOP) 2022-04-03 00:00:00 Completed [facility] SARS-COV-2 COVID-19 PFIZER JILLIAN-SUCROSE VACCINE (VENEGAS TOP) 2022-04-03 00:00:00 Completed [facility] SARS-COV-2 COVID-19 PFIZER JILLIAN-SUCROSE VACCINE (VENEGAS TOP) 2022-04-03 00:00:00 Completed [facility] SARS-COV-2 COVID-19 PFIZER JILLIAN-SUCROSE VACCINE (VENEGAS TOP) 2022-04-03 00:00:00 Completed [facility] SARS-COV-2 COVID-19 PFIZER JILLIAN-SUCROSE VACCINE (VENEGAS TOP) 2022-04-03 00:00:00 Completed [facility] SARS-COV-2 COVID-19 PFIZER JILLIAN-SUCROSE VACCINE (VENEGAS TOP) 2022-04-03 00:00:00 Completed [facility] SARS-COV-2 COVID-19 PFIZER JILLIAN-SUCROSE VACCINE (VEENGAS TOP) 2022-04-03 00:00:00 Completed [facility] SARS-COV-2 COVID-19 PFIZER JILLIAN-SUCROSE VACCINE (VENEGAS TOP) 2022-04-03 00:00:00 Completed [facility] SARS-COV-2 COVID-19 PFIZER JILLIAN-SUCROSE VACCINE (VENEGAS TOP) 2022-04-03 00:00:00 Completed [facility] SARS-COV-2 COVID-19 PFIZER JILLIAN-SUCROSE VACCINE (VENEGAS TOP) 2022-04-03 00:00:00 Completed [facility] SARS-COV-2 COVID-19 PFIZER JILLIAN-SUCROSE VACCINE (VENEGAS TOP) 2022-04-03 00:00:00 Completed [facility] SARS-COV-2 COVID-19 PFIZER JILLIAN-SUCROSE VACCINE (VENEGAS TOP) 2022-04-03 00:00:00 Completed [facility] SARS-COV-2 COVID-19 PFIZER JILLIAN-SUCROSE VACCINE (VENEGAS TOP) 2022-04-03 00:00:00 Completed [facility] SARS-COV-2 COVID-19 PFIZER JILLIAN-SUCROSE VACCINE (VENEGAS TOP) 2022-04-03 00:00:00 Completed [facility] SARS-COV-2 COVID-19 PFIZER JILLIAN-SUCROSE VACCINE (VENEGAS TOP) 2022-04-03 00:00:00 Completed [facility] SARS-COV-2 COVID-19 PFIZER JILLIAN-SUCROSE VACCINE (VENEGAS TOP) 2022-04-03 00:00:00 Completed [facility] SARS-COV-2 COVID-19 PFIZER JILLIAN-SUCROSE VACCINE (VENEGAS TOP) 2022-04-03 00:00:00 Completed [facility] SARS-COV-2 COVID-19 PFIZER JILLIAN-SUCROSE VACCINE (VENEGAS TOP) 2022-04-03 00:00:00 Completed [facility] SARS-COV-2 COVID-19 PFIZER IJLLIAN-SUCROSE VACCINE (VENEGAS TOP) 2022-04-03 00:00:00 Completed [facility] SARS-COV-2 COVID-19 PFIZER JILLIAN-SUCROSE VACCINE (VENEGAS TOP) 2022-04-03 00:00:00 Completed [facility] SARS-COV-2 COVID-19 PFIZER JILLIAN-SUCROSE VACCINE (VENEGAS TOP) 2022-04-03 00:00:00 Completed [facility] SARS-COV-2 COVID-19 PFIZER JILLIAN-SUCROSE VACCINE (VENEGAS TOP) 2022-04-03 00:00:00 Completed [facility] SARS-COV-2 COVID-19 PFIZER JILLIAN-SUCROSE VACCINE (VENEGAS TOP) 2022-04-03 00:00:00 Completed [facility] SARS-COV-2 COVID-19 PFIZER JILLIAN-SUCROSE VACCINE (VENEGAS TOP) 2022-04-03 00:00:00 Completed [facility] SARS-COV-2 COVID-19 PFIZER JILLIAN-SUCROSE VACCINE (VENEGAS TOP) 2022-04-03 00:00:00 Completed [facility] SARS-COV-2 COVID-19 PFIZER JILLIAN-SUCROSE VACCINE (VENEGAS TOP) 2022-04-03 00:00:00 Completed [facility] SARS-COV-2 COVID-19 PFIZER JILLIAN-SUCROSE VACCINE (VENEGSA TOP) 2022-04-03 00:00:00 Completed [facility] SARS-COV-2 COVID-19 PFIZER VACCINE 2021-01-05 00:00:00 Completed [facility] SARS-COV-2 COVID-19 PFIZER VACCINE 2021-01-05 00:00:00 Completed [facility] SARS-COV-2 COVID-19 PFIZER VACCINE 2021-01-05 00:00:00 Completed [facility] SARS-COV-2 COVID-19 PFIZER VACCINE 2021-01-05 00:00:00 Completed [facility] SARS-COV-2 COVID-19 PFIZER VACCINE 2021-01-05 00:00:00 Completed [facility] SARS-COV-2 COVID-19 PFIZER VACCINE 2021-01-05 00:00:00 Completed [facility] SARS-COV-2 COVID-19 PFIZER VACCINE 2021-01-05 00:00:00 Completed [facility] SARS-COV-2 COVID-19 PFIZER VACCINE 2021-01-05 00:00:00 Completed [facility] SARS-COV-2 COVID-19 PFIZER VACCINE 2021-01-05 00:00:00 Completed [facility] SARS-COV-2 COVID-19 PFIZER VACCINE 2021-01-05 00:00:00 Completed [facility] SARS-COV-2 COVID-19 PFIZER VACCINE 2021-01-05 00:00:00 Completed [facility] SARS-COV-2 COVID-19 PFIZER VACCINE 2021-01-05 00:00:00 Completed [facility] SARS-COV-2 COVID-19 PFIZER VACCINE 2021-01-05 00:00:00 Completed [facility] SARS-COV-2 COVID-19 PFIZER VACCINE 2021-01-05 00:00:00 Completed [facility] SARS-COV-2 COVID-19 PFIZER VACCINE 2021-01-05 00:00:00 Completed [facility] SARS-COV-2 COVID-19 PFIZER VACCINE 2021-01-05 00:00:00 Completed [facility] SARS-COV-2 COVID-19 PFIZER VACCINE 2021-01-05 00:00:00 Completed [facility] SARS-COV-2 COVID-19 PFIZER VACCINE 2021-01-05 00:00:00 Completed [facility] SARS-COV-2 COVID-19 PFIZER VACCINE 2021-01-05 00:00:00 Completed [facility] SARS-COV-2 COVID-19 PFIZER VACCINE 2021-01-05 00:00:00 Completed [facility] SARS-COV-2 COVID-19 PFIZER VACCINE 2021-01-05 00:00:00 Completed [facility] SARS-COV-2 COVID-19 PFIZER VACCINE 2021-01-05 00:00:00 Completed [facility] SARS-COV-2 COVID-19 PFIZER VACCINE 2021-01-05 00:00:00 Completed [facility] SARS-COV-2 COVID-19 PFIZER VACCINE 2021-01-05 00:00:00 Completed [facility] SARS-COV-2 COVID-19 PFIZER VACCINE 2021-01-05 00:00:00 Completed [facility] SARS-COV-2 COVID-19 PFIZER VACCINE 2021-01-05 00:00:00 Completed [facility] SARS-COV-2 COVID-19 PFIZER VACCINE 2021-01-05 00:00:00 Completed [facility] SARS-COV-2 COVID-19 PFIZER VACCINE 2021-01-05 00:00:00 Completed [facility] SARS-COV-2 COVID-19 PFIZER VACCINE 2021-01-05 00:00:00 Completed [facility] SARS-COV-2 COVID-19 PFIZER VACCINE 2021-01-05 00:00:00 Completed [facility] SARS-COV-2 COVID-19 PFIZER VACCINE 2021-01-05 00:00:00 Completed [facility] SARS-COV-2 COVID-19 PFIZER VACCINE 2021-01-05 00:00:00 Completed [facility] SARS-COV-2 COVID-19 PFIZER VACCINE 2021-01-05 00:00:00 Completed [facility] SARS-COV-2 COVID-19 PFIZER VACCINE 2021-01-05 00:00:00 Completed [facility] SARS-COV-2 COVID-19 PFIZER VACCINE 2021-01-05 00:00:00 Completed [facility] SARS-COV-2 COVID-19 PFIZER VACCINE 2021-01-05 00:00:00 Completed [facility] SARS-COV-2 COVID-19 PFIZER VACCINE 2021-01-05 00:00:00 Completed [facility] SARS-COV-2 COVID-19 PFIZER VACCINE 2021-01-05 00:00:00 Completed [facility] SARS-COV-2 COVID-19 PFIZER VACCINE 2021-01-05 00:00:00 Completed [facility] SARS-COV-2 COVID-19 PFIZER VACCINE 2021-01-05 00:00:00 Completed [facility] SARS-COV-2 COVID-19 PFIZER VACCINE 2021-01-05 00:00:00 Completed [facility] SARS-COV-2 COVID-19 PFIZER VACCINE 2021-01-05 00:00:00 Completed [facility] SARS-COV-2 COVID-19 PFIZER VACCINE 2021-01-05 00:00:00 Completed [facility] SARS-COV-2 COVID-19 PFIZER VACCINE 2021-01-05 00:00:00 Completed [facility] SARS-COV-2 COVID-19 PFIZER VACCINE 2021-01-05 00:00:00 Completed [facility] SARS-COV-2 COVID-19 PFIZER VACCINE 2021-01-05 00:00:00 Completed [facility] SARS-COV-2 COVID-19 PFIZER VACCINE 2021-01-05 00:00:00 Completed [facility] SARS-COV-2 COVID-19 PFIZER VACCINE 2021-01-05 00:00:00 Completed [facility] SARS-COV-2 COVID-19 PFIZER VACCINE 2021-01-05 00:00:00 Completed [facility] SARS-COV-2 COVID-19 PFIZER VACCINE 2021-01-05 00:00:00 Completed [facility] SARS-COV-2 COVID-19 PFIZER VACCINE 2021-01-05 00:00:00 Completed [facility] SARS-COV-2 COVID-19 PFIZER VACCINE 2021-01-05 00:00:00 Completed [facility] SARS-COV-2 COVID-19 PFIZER VACCINE 2021-01-05 00:00:00 Completed [facility] SARS-COV-2 COVID-19 PFIZER VACCINE 2021-01-05 00:00:00 Completed [facility] SARS-COV-2 COVID-19 PFIZER VACCINE 2021-01-05 00:00:00 Completed [facility] SARS-COV-2 COVID-19 PFIZER VACCINE 2021-01-05 00:00:00 Completed [facility] SARS-COV-2 COVID-19 PFIZER VACCINE 2021-01-05 00:00:00 Completed [facility] SARS-COV-2 COVID-19 PFIZER VACCINE 2021-01-05 00:00:00 Completed [facility] SARS-COV-2 COVID-19 PFIZER VACCINE 2021-01-05 00:00:00 Completed [facility] SARS-COV-2 COVID-19 PFIZER VACCINE 2021-01-05 00:00:00 Completed [facility] SARS-COV-2 COVID-19 PFIZER VACCINE 2021-01-05 00:00:00 Completed [facility] SARS-COV-2 COVID-19 PFIZER VACCINE 2021-01-05 00:00:00 Completed [facility] SARS-COV-2 COVID-19 PFIZER VACCINE 2021-01-05 00:00:00 Completed [facility] SARS-COV-2 COVID-19 PFIZER VACCINE 2021-01-05 00:00:00 Completed [facility] SARS-COV-2 COVID-19 PFIZER VACCINE 2021-01-05 00:00:00 Completed [facility] SARS-COV-2 COVID-19 PFIZER VACCINE 2021-01-05 00:00:00 Completed [facility] SARS-COV-2 COVID-19 PFIZER VACCINE 2021-01-05 00:00:00 Completed [facility] SARS-COV-2 COVID-19 PFIZER VACCINE 2021-01-05 00:00:00 Completed [facility] SARS-COV-2 COVID-19 PFIZER VACCINE 2021-01-05 00:00:00 Completed [facility] SARS-COV-2 COVID-19 PFIZER VACCINE 2021-01-05 00:00:00 Completed [facility] SARS-COV-2 COVID-19 PFIZER VACCINE 2021-01-05 00:00:00 Completed [facility] SARS-COV-2 COVID-19 PFIZER VACCINE 2021-01-05 00:00:00 Completed [facility] SARS-COV-2 COVID-19 PFIZER VACCINE 2021-01-05 00:00:00 Completed [facility] SARS-COV-2 COVID-19 PFIZER VACCINE 2021-01-05 00:00:00 Completed [facility] SARS-COV-2 COVID-19 PFIZER VACCINE 2021-01-05 00:00:00 Completed [facility] SARS-COV-2 COVID-19 PFIZER VACCINE 2021-01-05 00:00:00 Completed [facility] SARS-COV-2 COVID-19 PFIZER VACCINE 2021-01-05 00:00:00 Completed [facility] SARS-COV-2 COVID-19 PFIZER VACCINE 2021-01-05 00:00:00 Completed SARS-COV-2 COVID-19 PFIZER VACCINE 2021-01-05 00:00:00 Completed SARS-COV-2 COVID-19 PFIZER VACCINE 2020-12-15 00:00:00 Completed [facility] SARS-COV-2 COVID-19 PFIZER VACCINE 2020-12-15 00:00:00 Completed [facility] SARS-COV-2 COVID-19 PFIZER VACCINE 2020-12-15 00:00:00 Completed [facility] SARS-COV-2 COVID-19 PFIZER VACCINE 2020-12-15 00:00:00 Completed [facility] SARS-COV-2 COVID-19 PFIZER VACCINE 2020-12-15 00:00:00 Completed [facility] SARS-COV-2 COVID-19 PFIZER VACCINE 2020-12-15 00:00:00 Completed [facility] SARS-COV-2 COVID-19 PFIZER VACCINE 2020-12-15 00:00:00 Completed [facility] SARS-COV-2 COVID-19 PFIZER VACCINE 2020-12-15 00:00:00 Completed [facility] SARS-COV-2 COVID-19 PFIZER VACCINE 2020-12-15 00:00:00 Completed [facility] SARS-COV-2 COVID-19 PFIZER VACCINE 2020-12-15 00:00:00 Completed [facility] SARS-COV-2 COVID-19 PFIZER VACCINE 2020-12-15 00:00:00 Completed [facility] SARS-COV-2 COVID-19 PFIZER VACCINE 2020-12-15 00:00:00 Completed [facility] SARS-COV-2 COVID-19 PFIZER VACCINE 2020-12-15 00:00:00 Completed [facility] SARS-COV-2 COVID-19 PFIZER VACCINE 2020-12-15 00:00:00 Completed [facility] SARS-COV-2 COVID-19 PFIZER VACCINE 2020-12-15 00:00:00 Completed [facility] SARS-COV-2 COVID-19 PFIZER VACCINE 2020-12-15 00:00:00 Completed [facility] SARS-COV-2 COVID-19 PFIZER VACCINE 2020-12-15 00:00:00 Completed [facility] SARS-COV-2 COVID-19 PFIZER VACCINE 2020-12-15 00:00:00 Completed [facility] SARS-COV-2 COVID-19 PFIZER VACCINE 2020-12-15 00:00:00 Completed [facility] SARS-COV-2 COVID-19 PFIZER VACCINE 2020-12-15 00:00:00 Completed [facility] SARS-COV-2 COVID-19 PFIZER VACCINE 2020-12-15 00:00:00 Completed [facility] SARS-COV-2 COVID-19 PFIZER VACCINE 2020-12-15 00:00:00 Completed [facility] SARS-COV-2 COVID-19 PFIZER VACCINE 2020-12-15 00:00:00 Completed [facility] SARS-COV-2 COVID-19 PFIZER VACCINE 2020-12-15 00:00:00 Completed [facility] SARS-COV-2 COVID-19 PFIZER VACCINE 2020-12-15 00:00:00 Completed [facility] SARS-COV-2 COVID-19 PFIZER VACCINE 2020-12-15 00:00:00 Completed [facility] SARS-COV-2 COVID-19 PFIZER VACCINE 2020-12-15 00:00:00 Completed [facility] SARS-COV-2 COVID-19 PFIZER VACCINE 2020-12-15 00:00:00 Completed [facility] SARS-COV-2 COVID-19 PFIZER VACCINE 2020-12-15 00:00:00 Completed [facility] SARS-COV-2 COVID-19 PFIZER VACCINE 2020-12-15 00:00:00 Completed [facility] SARS-COV-2 COVID-19 PFIZER VACCINE 2020-12-15 00:00:00 Completed [facility] SARS-COV-2 COVID-19 PFIZER VACCINE 2020-12-15 00:00:00 Completed [facility] SARS-COV-2 COVID-19 PFIZER VACCINE 2020-12-15 00:00:00 Completed [facility] SARS-COV-2 COVID-19 PFIZER VACCINE 2020-12-15 00:00:00 Completed [facility] SARS-COV-2 COVID-19 PFIZER VACCINE 2020-12-15 00:00:00 Completed [facility] SARS-COV-2 COVID-19 PFIZER VACCINE 2020-12-15 00:00:00 Completed [facility] SARS-COV-2 COVID-19 PFIZER VACCINE 2020-12-15 00:00:00 Completed [facility] SARS-COV-2 COVID-19 PFIZER VACCINE 2020-12-15 00:00:00 Completed [facility] SARS-COV-2 COVID-19 PFIZER VACCINE 2020-12-15 00:00:00 Completed [facility] SARS-COV-2 COVID-19 PFIZER VACCINE 2020-12-15 00:00:00 Completed [facility] SARS-COV-2 COVID-19 PFIZER VACCINE 2020-12-15 00:00:00 Completed [facility] SARS-COV-2 COVID-19 PFIZER VACCINE 2020-12-15 00:00:00 Completed [facility] SARS-COV-2 COVID-19 PFIZER VACCINE 2020-12-15 00:00:00 Completed [facility] SARS-COV-2 COVID-19 PFIZER VACCINE 2020-12-15 00:00:00 Completed [facility] SARS-COV-2 COVID-19 PFIZER VACCINE 2020-12-15 00:00:00 Completed [facility] SARS-COV-2 COVID-19 PFIZER VACCINE 2020-12-15 00:00:00 Completed [facility] SARS-COV-2 COVID-19 PFIZER VACCINE 2020-12-15 00:00:00 Completed [facility] SARS-COV-2 COVID-19 PFIZER VACCINE 2020-12-15 00:00:00 Completed [facility] SARS-COV-2 COVID-19 PFIZER VACCINE 2020-12-15 00:00:00 Completed [facility] SARS-COV-2 COVID-19 PFIZER VACCINE 2020-12-15 00:00:00 Completed [facility] SARS-COV-2 COVID-19 PFIZER VACCINE 2020-12-15 00:00:00 Completed [facility] SARS-COV-2 COVID-19 PFIZER VACCINE 2020-12-15 00:00:00 Completed [facility] SARS-COV-2 COVID-19 PFIZER VACCINE 2020-12-15 00:00:00 Completed [facility] SARS-COV-2 COVID-19 PFIZER VACCINE 2020-12-15 00:00:00 Completed [facility] SARS-COV-2 COVID-19 PFIZER VACCINE 2020-12-15 00:00:00 Completed [facility] SARS-COV-2 COVID-19 PFIZER VACCINE 2020-12-15 00:00:00 Completed [facility] SARS-COV-2 COVID-19 PFIZER VACCINE 2020-12-15 00:00:00 Completed [facility] SARS-COV-2 COVID-19 PFIZER VACCINE 2020-12-15 00:00:00 Completed [facility] SARS-COV-2 COVID-19 PFIZER VACCINE 2020-12-15 00:00:00 Completed [facility] SARS-COV-2 COVID-19 PFIZER VACCINE 2020-12-15 00:00:00 Completed [facility] SARS-COV-2 COVID-19 PFIZER VACCINE 2020-12-15 00:00:00 Completed [facility] SARS-COV-2 COVID-19 PFIZER VACCINE 2020-12-15 00:00:00 Completed [facility] SARS-COV-2 COVID-19 PFIZER VACCINE 2020-12-15 00:00:00 Completed [facility] SARS-COV-2 COVID-19 PFIZER VACCINE 2020-12-15 00:00:00 Completed [facility] SARS-COV-2 COVID-19 PFIZER VACCINE 2020-12-15 00:00:00 Completed [facility] SARS-COV-2 COVID-19 PFIZER VACCINE 2020-12-15 00:00:00 Completed [facility] SARS-COV-2 COVID-19 PFIZER VACCINE 2020-12-15 00:00:00 Completed [facility] SARS-COV-2 COVID-19 PFIZER VACCINE 2020-12-15 00:00:00 Completed [facility] SARS-COV-2 COVID-19 PFIZER VACCINE 2020-12-15 00:00:00 Completed [facility] SARS-COV-2 COVID-19 PFIZER VACCINE 2020-12-15 00:00:00 [facility] [facility] SARS-COV-2 COVID-19 PFIZER VACCINE 2020-12-15 00:00:00 Completed [facility] SARS-COV-2 COVID-19 PFIZER VACCINE 2020-12-15 00:00:00 Completed [facility] SARS-COV-2 COVID-19 PFIZER VACCINE 2020-12-15 00:00:00 Completed [facility] SARS-COV-2 COVID-19 PFIZER VACCINE 2020-12-15 00:00:00 Completed [facility] SARS-COV-2 COVID-19 PFIZER VACCINE 2020-12-15 00:00:00 Completed [facility] SARS-COV-2 COVID-19 PFIZER VACCINE 2020-12-15 00:00:00 Completed [facility] SARS-COV-2 COVID-19 PFIZER VACCINE 2020-12-15 00:00:00 Completed [facility] SARS-COV-2 COVID-19 PFIZER VACCINE 2020-12-15 00:00:00 Completed [facility] SARS-COV-2 COVID-19 PFIZER VACCINE 2020-12-15 00:00:00 Completed [facility] Influenza High Dose 2020-08-24 00:00:00 Completed [facility] Influenza High Dose 2020-08-24 00:00:00 Completed [facility] Influenza High Dose 2020-08-24 00:00:00 Completed [facility] Influenza High Dose 2020-08-24 00:00:00 Completed [facility] Influenza High Dose 2020-08-24 00:00:00 Completed [facility] Influenza High Dose 2020-08-24 00:00:00 Completed [facility] Influenza High Dose 2020-08-24 00:00:00 Completed [facility] Influenza High Dose 2020-08-24 00:00:00 Completed [facility] Influenza High Dose 2020-08-24 00:00:00 Completed [facility] Influenza High Dose 2020-08-24 00:00:00 Completed [facility] Influenza High Dose 2020-08-24 00:00:00 Completed [facility] Influenza High Dose 2020-08-24 00:00:00 Completed [facility] Influenza High Dose 2020-08-24 00:00:00 Completed [facility] Influenza High Dose 2020-08-24 00:00:00 Completed [facility] Influenza High Dose 2020-08-24 00:00:00 Completed [facility] Influenza High Dose 2020-08-24 00:00:00 Completed [facility] Influenza High Dose 2020-08-24 00:00:00 Completed [facility] Influenza High Dose 2020-08-24 00:00:00 Completed [facility] Influenza High Dose 2020-08-24 00:00:00 Completed [facility] Influenza High Dose 2020-08-24 00:00:00 Completed [facility] Influenza High Dose 2020-08-24 00:00:00 Completed [facility] Influenza High Dose 2020-08-24 00:00:00 Completed [facility] Influenza High Dose 2020-08-24 00:00:00 Completed [facility] Influenza High Dose 2020-08-24 00:00:00 Completed [facility] Influenza High Dose 2020-08-24 00:00:00 Completed [facility] Influenza High Dose 2020-08-24 00:00:00 Completed [facility] Influenza High Dose 2020-08-24 00:00:00 Completed [facility] Influenza High Dose 2020-08-24 00:00:00 Completed [facility] Influenza High Dose 2020-08-24 00:00:00 Completed [facility] Influenza High Dose 2020-08-24 00:00:00 Completed [facility] Influenza High Dose 2020-08-24 00:00:00 Completed [facility] Influenza High Dose 2020-08-24 00:00:00 Completed [facility] Influenza High Dose 2020-08-24 00:00:00 Completed [facility] Influenza High Dose 2020-08-24 00:00:00 Completed [facility] Influenza High Dose 2020-08-24 00:00:00 Completed [facility] Influenza High Dose 2020-08-24 00:00:00 Completed [facility] Influenza High Dose 2020-08-24 00:00:00 Completed [facility] Influenza High Dose 2020-08-24 00:00:00 Completed [facility] Influenza High Dose 2020-08-24 00:00:00 Completed [facility] Influenza High Dose 2020-08-24 00:00:00 Completed [facility] Influenza High Dose 2020-08-24 00:00:00 Completed [facility] Influenza High Dose 2020-08-24 00:00:00 Completed [facility] Influenza High Dose 2020-08-24 00:00:00 Completed [facility] Influenza High Dose 2020-08-24 00:00:00 Completed [facility] Influenza High Dose 2020-08-24 00:00:00 Completed [facility] Influenza High Dose 2020-08-24 00:00:00 Completed [facility] Influenza High Dose 2020-08-24 00:00:00 Completed [facility] Influenza High Dose 2020-08-24 00:00:00 Completed [facility] Influenza High Dose 2020-08-24 00:00:00 Completed [facility] Influenza High Dose 2020-08-24 00:00:00 Completed [facility] Influenza High Dose 2020-08-24 00:00:00 Completed [facility] Influenza High Dose 2020-08-24 00:00:00 Completed [facility] Influenza High Dose 2020-08-24 00:00:00 Completed [facility] Influenza High Dose 2020-08-24 00:00:00 Completed [facility] Influenza High Dose 2020-08-24 00:00:00 Completed [facility] Influenza High Dose 2020-08-24 00:00:00 Completed [facility] Influenza High Dose 2020-08-24 00:00:00 Completed [facility] Influenza High Dose 2020-08-24 00:00:00 Completed [facility] Influenza High Dose 2020-08-24 00:00:00 Completed [facility] Influenza High Dose 2020-08-24 00:00:00 Completed [facility] Influenza High Dose 2020-08-24 00:00:00 Completed [facility] Influenza High Dose 2020-08-24 00:00:00 Completed [facility] Influenza High Dose 2020-08-24 00:00:00 Completed [facility] Influenza High Dose 2020-08-24 00:00:00 Completed [facility] Influenza High Dose 2020-08-24 00:00:00 Completed [facility] Influenza High Dose 2020-08-24 00:00:00 Completed [facility] Influenza High Dose 2020-08-24 00:00:00 Completed [facility] Influenza High Dose 2020-08-24 00:00:00 Completed [facility] Influenza High Dose 2020-08-24 00:00:00 Completed [facility] Influenza High Dose 2020-08-24 00:00:00 Completed [facility] Influenza High Dose 2020-08-24 00:00:00 Completed [facility] Influenza High Dose 2020-08-24 00:00:00 Completed [facility] Influenza High Dose 2020-08-24 00:00:00 Completed [facility] Influenza High Dose 2020-08-24 00:00:00 Completed [facility] Influenza High Dose 2020-08-24 00:00:00 Completed [facility] Influenza High Dose 2020-08-24 00:00:00 Completed [facility] Influenza High Dose 2020-08-24 00:00:00 Completed [facility] Influenza, High-Dose, Trivalent, PF (FLUZONE) 2020-08-24 00:00:00 Completed [facility] Influenza, High-Dose, Trivalent, PF (FLUZONE) 2020-08-24 00:00:00 Completed [facility] Influenza High Dose Unknown Completed [facility] SARS-COV-2 COVID-19 PFIZER VACCINE Unknown Completed [facility] SARS-COV-2 COVID-19 PFIZER JILLIAN-SUCROSE VACCINE (VENEGAS TOP) Unknown Completed [facility] Influenza High Dose Unknown Completed [facility] SARS-COV-2 COVID-19 PFIZER VACCINE Unknown Completed [facility] SARS-COV-2 COVID-19 PFIZER JILLIAN-SUCROSE VACCINE (VENEGAS TOP) Unknown Completed [facility] Influenza High Dose Unknown Completed [facility] SARS-COV-2 COVID-19 PFIZER VACCINE Unknown Completed [facility] SARS-COV-2 COVID-19 PFIZER JILLIAN-SUCROSE VACCINE (VENEGAS TOP) Unknown Completed [facility] Influenza Virus Vaccine,quad Im,preserve Free 65+ (FLUAD) Unknown Completed [facility] Pneumococcal 20 Conjugate, PCV20 (Prevnar 20) Unknown Completed [facility] Influenza High Dose Unknown Completed [facility] SARS-COV-2 COVID-19 PFIZER VACCINE Unknown Completed [facility] SARS-COV-2 COVID-19 PFIZER JILLIAN-SUCROSE VACCINE (VENEGAS TOP) Unknown Completed [facility] Influenza Virus Vaccine,quad Im,preserve Free 65+ (FLUAD) Unknown Completed [facility] Pneumococcal 20 Conjugate, PCV20 (Prevnar 20) Unknown Completed [facility] Influenza High Dose Unknown Completed [facility] SARS-COV-2 COVID-19 PFIZER VACCINE Unknown Completed [facility] SARS-COV-2 COVID-19 PFIZER JILLIAN-SUCROSE VACCINE (VENEGAS TOP) Unknown Completed [facility] Influenza Virus Vaccine,quad Im,preserve Free 65+ (FLUAD) Unknown Completed [facility] Pneumococcal 20 Conjugate, PCV20 (Prevnar 20) Unknown Completed [facility] Influenza High Dose Unknown Completed [facility] SARS-COV-2 COVID-19 PFIZER VACCINE Unknown Completed [facility] SARS-COV-2 COVID-19 PFIZER JILLIAN-SUCROSE VACCINE (VENEGAS TOP) Unknown Completed [facility] Influenza Virus Vaccine,quad Im,preserve Free 65+ (FLUAD) Unknown Completed [facility] Pneumococcal 20 Conjugate, PCV20 (Prevnar 20) Unknown Completed [facility] Influenza High Dose Unknown Completed [facility] SARS-COV-2 COVID-19 PFIZER VACCINE Unknown Completed [facility] SARS-COV-2 COVID-19 PFIZER JILLIAN-SUCROSE VACCINE (VENEGAS TOP) Unknown Completed [facility] Influenza Virus Vaccine,quad Im,preserve Free 65+ (FLUAD) Unknown Completed [facility] Pneumococcal 20 Conjugate, PCV20 (Prevnar 20) Unknown Completed [facility] Influenza High Dose Unknown Completed [facility] SARS-COV-2 COVID-19 PFIZER VACCINE Unknown Completed [facility] SARS-COV-2 COVID-19 PFIZER JILLIAN-SUCROSE VACCINE (VENEGAS TOP) Unknown Completed [facility] Influenza Virus Vaccine,quad Im,preserve Free 65+ (FLUAD) Unknown Completed [facility] Pneumococcal 20 Conjugate, PCV20 (Prevnar 20) Unknown Completed [facility] Influenza High Dose Unknown Completed [facility] SARS-COV-2 COVID-19 PFIZER VACCINE Unknown Completed [facility] SARS-COV-2 COVID-19 PFIZER JILLIAN-SUCROSE VACCINE (VENEGAS TOP) Unknown Completed [facility] Influenza Virus Vaccine,quad Im,preserve Free 65+ (FLUAD) Unknown Completed [facility] Pneumococcal 20 Conjugate, PCV20 (Prevnar 20) Unknown Completed [facility] Influenza High Dose Unknown Completed [facility] SARS-COV-2 COVID-19 PFIZER VACCINE Unknown Completed [facility] SARS-COV-2 COVID-19 PFIZER JILLIAN-SUCROSE VACCINE (VENEGAS TOP) Unknown Completed [facility] Influenza Virus Vaccine,quad Im,preserve Free 65+ (FLUAD) Unknown Completed [facility] Pneumococcal 20 Conjugate, PCV20 (Prevnar 20) Unknown Completed [facility] Influenza High Dose Unknown Completed [facility] SARS-COV-2 COVID-19 PFIZER VACCINE Unknown Completed [facility] SARS-COV-2 COVID-19 PFIZER JILLIAN-SUCROSE VACCINE (VENEGAS TOP) Unknown Completed [facility] Influenza Virus Vaccine,quad Im,preserve Free 65+ (FLUAD) Unknown Completed [facility] Pneumococcal 20 Conjugate, PCV20 (Prevnar 20) Unknown Completed [facility] Influenza High Dose Unknown Completed [facility] SARS-COV-2 COVID-19 PFIZER VACCINE Unknown Completed [facility] SARS-COV-2 COVID-19 PFIZER JILLIAN-SUCROSE VACCINE (VENEGAS TOP) Unknown Completed [facility] Influenza Virus Vaccine,quad Im,preserve Free 65+ (FLUAD) Unknown Completed [facility] Pneumococcal 20 Conjugate, PCV20 (Prevnar 20) Unknown Completed [facility] Influenza High Dose Unknown Completed [facility] SARS-COV-2 COVID-19 PFIZER VACCINE Unknown Completed [facility] SARS-COV-2 COVID-19 PFIZER JILLIAN-SUCROSE VACCINE (VENEGAS TOP) Unknown Completed [facility] Influenza Virus Vaccine,quad Im,preserve Free 65+ (FLUAD) Unknown Completed [facility] Pneumococcal 20 Conjugate, PCV20 (Prevnar 20) Unknown Completed [facility] Influenza High Dose Unknown Completed [facility] SARS-COV-2 COVID-19 PFIZER VACCINE Unknown Completed [facility] SARS-COV-2 COVID-19 PFIZER JILLIAN-SUCROSE VACCINE (VENEGAS TOP) Unknown Completed [facility] Influenza Virus Vaccine,quad Im,preserve Free 65+ (FLUAD) Unknown Completed [facility] Pneumococcal 20 Conjugate, PCV20 (Prevnar 20) Unknown Completed [facility] Influenza High Dose Unknown Completed [facility] SARS-COV-2 COVID-19 PFIZER JILLIAN-SUCROSE VACCINE (VENEGAS TOP) Unknown Completed [facility] Influenza Virus Vaccine,quad Im,preserve Free 65+ (FLUAD) Unknown Completed [facility] Pneumococcal 20 Conjugate, PCV20 (Prevnar 20) Unknown Completed [facility] SARS-COV-2 COVID-19 PFIZER VACCINE Unknown Completed [facility] Influenza High Dose Unknown Completed [facility] SARS-COV-2 COVID-19 PFIZER VACCINE Unknown Completed [facility] SARS-COV-2 COVID-19 PFIZER JILLIAN-SUCROSE VACCINE (VENEGAS TOP) Unknown Completed [facility] Influenza Virus Vaccine,quad Im,preserve Free 65+ (FLUAD) Unknown Completed [facility] Pneumococcal 20 Conjugate, PCV20 (Prevnar 20) Unknown Completed [facility] Influenza High Dose Unknown Completed [facility] SARS-COV-2 COVID-19 PFIZER VACCINE Unknown Completed [facility] SARS-COV-2 COVID-19 PFIZER JILLIAN-SUCROSE VACCINE (VENEGAS TOP) Unknown Completed [facility] Influenza Virus Vaccine,quad Im,preserve Free 65+ (FLUAD) Unknown Completed [facility] Pneumococcal 20 Conjugate, PCV20 (Prevnar 20) Unknown Completed [facility] Influenza High Dose Unknown Completed [facility] SARS-COV-2 COVID-19 PFIZER VACCINE Unknown Completed [facility] SARS-COV-2 COVID-19 PFIZER JILILAN-SUCROSE VACCINE (VENEGAS TOP) Unknown Completed [facility] Influenza Virus Vaccine,quad Im,preserve Free 65+ (FLUAD) Unknown Completed [facility] Pneumococcal 20 Conjugate, PCV20 (Prevnar 20) Unknown Completed [facility] Influenza High Dose Unknown Completed [facility] SARS-COV-2 COVID-19 PFIZER VACCINE Unknown Completed [facility] SARS-COV-2 COVID-19 PFIZER JILLIAN-SUCROSE VACCINE (VENEGAS TOP) Unknown Completed [facility] Influenza Virus Vaccine,quad Im,preserve Free 65+ (FLUAD) Unknown Completed [facility] Pneumococcal 20 Conjugate, PCV20 (Prevnar 20) Unknown Completed [facility] Influenza High Dose Unknown Completed [facility] SARS-COV-2 COVID-19 PFIZER VACCINE Unknown Completed [facility] SARS-COV-2 COVID-19 PFIZER JILLIAN-SUCROSE VACCINE (VENEGAS TOP) Unknown Completed [facility] Influenza Virus Vaccine,quad Im,preserve Free 65+ (FLUAD) Unknown Completed [facility] Pneumococcal 20 Conjugate, PCV20 (Prevnar 20) Unknown Completed [facility] Influenza High Dose Unknown Completed [facility] SARS-COV-2 COVID-19 PFIZER JILLIAN-SUCROSE VACCINE (VENEGAS TOP) Unknown Completed [facility] Influenza Virus Vaccine,quad Im,preserve Free 65+ (FLUAD) Unknown Completed [facility] Pneumococcal 20 Conjugate, PCV20 (Prevnar 20) Unknown Completed [facility] SARS-COV-2 COVID-19 PFIZER VACCINE Unknown Completed [facility] Influenza High Dose Unknown Completed [facility] SARS-COV-2 COVID-19 PFIZER VACCINE Unknown Completed [facility] SARS-COV-2 COVID-19 PFIZER JILLIAN-SUCROSE VACCINE (VENEGAS TOP) Unknown Completed [facility] Influenza Virus Vaccine,quad Im,preserve Free 65+ (FLUAD) Unknown Completed [facility] Pneumococcal 20 Conjugate, PCV20 (Prevnar 20) Unknown Completed [facility] Influenza High Dose Unknown Completed [facility] SARS-COV-2 COVID-19 PFIZER VACCINE Unknown Completed [facility] SARS-COV-2 COVID-19 PFIZER JILLIAN-SUCROSE VACCINE (VENEGAS TOP) Unknown Completed [facility] Influenza Virus Vaccine,quad Im,preserve Free 65+ (FLUAD) Unknown Completed [facility] Pneumococcal 20 Conjugate, PCV20 (Prevnar 20) Unknown Completed [facility] Influenza High Dose Unknown Completed [facility] SARS-COV-2 COVID-19 PFIZER VACCINE Unknown Completed [facility] SARS-COV-2 COVID-19 PFIZER JILLIAN-SUCROSE VACCINE (VENEGAS TOP) Unknown Completed [facility] Influenza Virus Vaccine,quad Im,preserve Free 65+ (FLUAD) Unknown Completed [facility] Pneumococcal 20 Conjugate, PCV20 (Prevnar 20) Unknown Completed [facility] Influenza High Dose Unknown Completed [facility] SARS-COV-2 COVID-19 PFIZER VACCINE Unknown Completed [facility] SARS-COV-2 COVID-19 PFIZER JILLIAN-SUCROSE VACCINE (VENEGAS TOP) Unknown Completed [facility] Influenza Virus Vaccine,quad Im,preserve Free 65+ (FLUAD) Unknown Completed [facility] Pneumococcal 20 Conjugate, PCV20 (Prevnar 20) Unknown Completed [facility] Influenza High Dose Unknown Completed [facility] SARS-COV-2 COVID-19 PFIZER VACCINE Unknown Completed [facility] SARS-COV-2 COVID-19 PFIZER JILLIAN-SUCROSE VACCINE (VENEGAS TOP) Unknown Completed [facility] Influenza Virus Vaccine,quad Im,preserve Free 65+ (FLUAD) Unknown Completed [facility] Pneumococcal 20 Conjugate, PCV20 (Prevnar 20) Unknown Completed [facility] Influenza High Dose Unknown Completed [facility] SARS-COV-2 COVID-19 PFIZER VACCINE Unknown Completed [facility] SARS-COV-2 COVID-19 PFIZER JILLIAN-SUCROSE VACCINE (VENEGAS TOP) Unknown Completed [facility] Influenza Virus Vaccine,quad Im,preserve Free 65+ (FLUAD) Unknown Completed [facility] Pneumococcal 20 Conjugate, PCV20 (Prevnar 20) Unknown Completed [facility] Influenza High Dose Unknown Completed [facility] SARS-COV-2 COVID-19 PFIZER VACCINE Unknown Completed [facility] SARS-COV-2 COVID-19 PFIZER JILLIAN-SUCROSE VACCINE (VENEGAS TOP) Unknown Completed [facility] Influenza Virus Vaccine,quad Im,preserve Free 65+ (FLUAD) Unknown Completed [facility] Pneumococcal 20 Conjugate, PCV20 (Prevnar 20) Unknown Completed [facility] Influenza High Dose Unknown Completed [facility] SARS-COV-2 COVID-19 PFIZER VACCINE Unknown Completed [facility] SARS-COV-2 COVID-19 PFIZER JILLIAN-SUCROSE VACCINE (VENEGAS TOP) Unknown Completed [facility] Influenza Virus Vaccine,quad Im,preserve Free 65+ (FLUAD) Unknown Completed [facility] Pneumococcal 20 Conjugate, PCV20 (Prevnar 20) Unknown Completed [facility] Influenza High Dose Unknown Completed [facility] SARS-COV-2 COVID-19 PFIZER VACCINE Unknown Completed [facility] SARS-COV-2 COVID-19 PFIZER JILLIAN-SUCROSE VACCINE (VENEGAS TOP) Unknown Completed [facility] Influenza Virus Vaccine,quad Im,preserve Free 65+ (FLUAD) Unknown Completed [facility] Pneumococcal 20 Conjugate, PCV20 (Prevnar 20) Unknown Completed [facility] Influenza High Dose Unknown Completed [facility] SARS-COV-2 COVID-19 PFIZER VACCINE Unknown Completed [facility] SARS-COV-2 COVID-19 PFIZER JILLIAN-SUCROSE VACCINE (VENEGAS TOP) Unknown Completed [facility] Influenza Virus Vaccine,quad Im,preserve Free 65+ (FLUAD) Unknown Completed [facility] Pneumococcal 20 Conjugate, PCV20 (Prevnar 20) Unknown Completed [facility] Influenza High Dose Unknown Completed [facility] SARS-COV-2 COVID-19 PFIZER VACCINE Unknown Completed [facility] SARS-COV-2 COVID-19 PFIZER JILLIAN-SUCROSE VACCINE (VENEGAS TOP) Unknown [facility] [facility] Influ[facility] Virus Vaccine,quad Im,preserve Free 65+ (FLUAD) Unknown Completed [facility] Pneumococcal 20 Conjugate, PCV20 (Prevnar 20) Unknown Completed [facility] Influenza High Dose Unknown Completed [facility] SARS-COV-2 COVID-19 PFIZER VACCINE Unknown Completed [facility] SARS-COV-2 COVID-19 PFIZER JILLIAN-SUCROSE VACCINE (VENEGAS TOP) Unknown Completed [facility] Influenza Virus Vaccine,quad Im,preserve Free 65+ (FLUAD) Unknown Completed [facility] Pneumococcal 20 Conjugate, PCV20 (Prevnar 20) Unknown Completed [facility] Influenza High Dose Unknown Completed [facility] SARS-COV-2 COVID-19 PFIZER VACCINE Unknown Completed [facility] SARS-COV-2 COVID-19 PFIZER JILLIAN-SUCROSE VACCINE (VENEGAS TOP) Unknown Completed [facility] Influenza Virus Vaccine,quad Im,preserve Free 65+ (FLUAD) Unknown Completed [facility] Pneumococcal 20 Conjugate, PCV20 (Prevnar 20) Unknown Completed [facility] Influenza High Dose Unknown Completed [facility] SARS-COV-2 COVID-19 PFIZER VACCINE Unknown Completed [facility] SARS-COV-2 COVID-19 PFIZER JILLIAN-SUCROSE VACCINE (VENEGAS TOP) Unknown Completed [facility] Influenza Virus Vaccine,quad Im,preserve Free 65+ (FLUAD) Unknown Completed [facility] Pneumococcal 20 Conjugate, PCV20 (Prevnar 20) Unknown Completed [facility] Influenza High Dose Unknown Completed [facility] SARS-COV-2 COVID-19 PFIZER VACCINE Unknown Completed [facility] SARS-COV-2 COVID-19 PFIZER JILLIAN-SUCROSE VACCINE (VENEGAS TOP) Unknown Completed [facility] Influenza Virus Vaccine,quad Im,preserve Free 65+ (FLUAD) Unknown Completed [facility] Pneumococcal 20 Conjugate, PCV20 (Prevnar 20) Unknown Completed [facility] Influenza, High Dose Seasonal (fluzone) Unknown Completed [facility] Influenza, High Dose Seasonal (fluzone) Unknown Completed [facility] Vital Signs Vital Name Observation Time Observation Value Comments S ource Systolic blood pressure 2025-06-07 20:21:00 111 mm[Hg] [facility] Diastolic blood pressure 2025-06-07 20:21:00 73 mm[Hg] [facility] Heart rate 2025-06-07 20:21:00 93 /min [facility] Respiratory rate 2025-06-07 20:21:00 18 /min [facility] Body weight 2025-06-07 20:21:00 61.689 kg [facility] BMI 2025-06-07 20:21:00 23.34 kg/m2 [facility] Oxygen saturation in Arterial blood by Pulse oximetry 2025-06-07 20:21:00 98 /min [facility] Systolic blood pressure 2025-04-27 18:35:00 95 mm[Hg] [facility] Diastolic blood pressure 2025-04-27 18:35:00 67 mm[Hg] [facility] Heart rate 2025-04-27 18:35:00 94 /min [facility] Body weight 2025-04-27 18:35:00 61.689 kg [facility] BMI 2025-04-27 18:35:00 23.34 kg/m2 [facility] Oxygen saturation in Arterial blood by Pulse oximetry 2025-04-27 18:35:00 99 /min [facility] Systolic blood pressure 2025-03-02 18:53:00 120 mm[Hg] [facility] Diastolic blood pressure 2025-03-02 18:53:00 63 mm[Hg] [facility] Heart rate 2025-03-02 18:53:00 103 /min [facility] Body height 2025-03-02 18:53:00 162.6 cm [facility] Body weight 2025-03-02 18:53:00 63.095 kg [facility] BMI 2025-03-02 18:53:00 23.88 kg/m2 [facility] Oxygen saturation in Arterial blood by Pulse oximetry 2025-03-02 18:53:00 98 /min [facility] Systolic blood pressure 2024-09-30 14:47:00 136 mm[Hg] [facility] Diastolic blood pressure 2024-09-30 14:47:00 69 mm[Hg] [facility] Heart rate 2024-09-30 14:47:00 68 /min [facility] Body height 2024-09-30 14:47:00 162.6 cm [facility] Body weight 2024-09-30 14:47:00 68.539 kg [facility] BMI 2024-09-30 14:47:00 25.94 kg/m2 [facility] Oxygen saturation in Arterial blood by Pulse oximetry 2024-09-30 14:47:00 98 /min [facility] Systolic blood pressure 2024-09-09 22:00:00 166 mm[Hg] [facility] Diastolic blood pressure 2024-09-09 22:00:00 79 mm[Hg] [facility] Heart rate 2024-09-09 22:00:00 91 /min [facility] Respiratory rate 2024-09-09 22:00:00 15 /min [facility] Oxygen saturation in Arterial blood by Pulse oximetry 2024-09-09 22:00:00 98 /min [facility] Body temperature 2024-09-09 18:06:00 36.5 [place] [facility] Body height 2024-09-09 18:06:00 163.8 cm [facility] Body weight 2024-09-09 18:06:00 71.668 kg [facility] BMI 2024-09-09 18:06:00 26.70 kg/m2 [facility] Systolic blood pressure 2024-06-28 18:51:00 152 mm[Hg] [facility] Diastolic blood pressure 2024-06-28 18:51:00 77 mm[Hg] [facility] Heart rate 2024-06-28 18:50:00 67 /min [facility] Body height 2024-06-28 18:50:00 162.6 cm [facility] Body weight 2024-06-28 18:50:00 66.225 kg [facility] BMI 2024-06-28 18:50:00 25.06 kg/m2 [facility] Oxygen saturation in Arterial blood by Pulse oximetry 2024-06-28 18:50:00 98 /min [facility] Systolic blood pressure 2024-03-24 18:20:00 121 mm[Hg] [facility] Diastolic blood pressure 2024-03-24 18:20:00 77 mm[Hg] [facility] Heart rate 2024-03-24 18:20:00 79 /min [facility] Body height 2024-03-24 18:20:00 162.6 cm [facility] Body weight 2024-03-24 18:20:00 65.681 kg [facility] BMI 2024-03-24 18:20:00 24.85 kg/m2 [facility] Oxygen saturation in Arterial blood by Pulse oximetry 2024-03-24 18:20:00 99 /min [facility] Systolic blood pressure 2024-02-18 18:35:00 170 mm[Hg] [facility] Diastolic blood pressure 2024-02-18 18:35:00 70 mm[Hg] [facility] Heart rate 2024-02-18 18:34:00 65 /min [facility] Body height 2024-02-18 18:34:00 157.5 cm [facility] Body weight 2024-02-18 18:34:00 68.584 kg [facility] BMI 2024-02-18 18:34:00 27.65 kg/m2 [facility] Oxygen saturation in Arterial blood by Pulse oximetry 2024-02-18 18:34:00 99 /min [facility] Systolic blood pressure 2024-02-11 21:00:00 170 mm[Hg] [facility] Diastolic blood pressure 2024-02-11 21:00:00 66 mm[Hg] [facility] Heart rate 2024-02-11 21:00:00 67 /min [facility] Respiratory rate 2024-02-11 21:00:00 16 /min [facility] Oxygen saturation in Arterial blood by Pulse oximetry 2024-02-11 21:00:00 99 /min [facility] Body temperature 2024-02-11 19:21:00 36.67 [place] [facility] Body weight 2024-02-11 19:21:00 67.132 kg [facility] BMI 2024-02-11 19:21:00 25.40 kg/m2 [facility] Systolic blood pressure 2023-12-17 18:31:00 170 mm[Hg] [facility] Diastolic blood pressure 2023-12-17 18:31:00 79 mm[Hg] [facility] Heart rate 2023-12-17 18:30:00 61 /min [facility] Body height 2023-12-17 18:30:00 162.6 cm [facility] Body weight 2023-12-17 18:30:00 67.359 kg [facility] BMI 2023-12-17 18:30:00 25.49 kg/m2 [facility] Oxygen saturation in Arterial blood by Pulse oximetry 2023-12-17 18:30:00 99 /min [facility] Systolic blood pressure 2023-09-23 18:37:00 150 mm[Hg] [facility] Diastolic blood pressure 2023-09-23 18:37:00 62 mm[Hg] [facility] Heart rate 2023-09-23 18:37:00 62 /min [facility] Body height 2023-09-23 18:37:00 162.6 cm [facility] Body weight 2023-09-23 18:37:00 58.06 kg [facility] BMI 2023-09-23 18:37:00 21.97 kg/m2 [facility] Systolic blood pressure 2023-08-28 20:02:00 148 mm[Hg] [facility] Diastolic blood pressure 2023-08-28 20:02:00 63 mm[Hg] [facility] Heart rate 2023-08-28 20:01:00 59 /min [facility] Respiratory rate 2023-08-28 20:01:00 18 /min [facility] Body height 2023-08-28 20:01:00 162.6 cm [facility] Body weight 2023-08-28 20:01:00 54.432 kg [facility] BMI 2023-08-28 20:01:00 20.60 kg/m2 [facility] Oxygen saturation in Arterial blood by Pulse oximetry 2023-08-28 20:01:00 99 /min [facility] Systolic blood pressure 2023-08-12 18:46:00 182 mm[Hg] [facility] Diastolic blood pressure 2023-08-12 18:46:00 80 mm[Hg] [facility] Heart rate 2023-08-12 18:46:00 85 /min [facility] Body temperature 2023-08-12 18:46:00 36.72 [place] [facility] Respiratory rate 2023-08-12 18:46:00 18 /min [facility] Oxygen saturation in Arterial blood by Pulse oximetry 2023-08-12 18:46:00 100 /min [facility] Systolic blood pressure 2023-06-11 13:57:00 177 mm[Hg] [facility] Diastolic blood pressure 2023-06-11 13:57:00 65 mm[Hg] [facility] Heart rate 2023-06-11 13:56:00 59 /min [facility] Respiratory rate 2023-06-11 13:56:00 18 /min [facility] Body height 2023-06-11 13:56:00 162.6 cm [facility] Body weight 2023-06-11 13:56:00 58.922 kg [facility] BMI 2023-06-11 13:56:00 22.30 kg/m2 [facility] Oxygen saturation in Arterial blood by Pulse oximetry 2023-06-11 13:56:00 99 /min [facility] Systolic blood pressure 2023-03-05 18:11:00 182 mm[Hg] [facility] Diastolic blood pressure 2023-03-05 18:11:00 73 mm[Hg] [facility] Heart rate 2023-03-05 18:11:00 62 /min [facility] Body height 2023-03-05 17:59:00 163.8 cm [facility] Body weight 2023-03-05 17:59:00 62.687 kg [facility] BMI 2023-03-05 17:59:00 23.36 kg/m2 [facility] Oxygen saturation in Arterial blood by Pulse oximetry 2023-03-05 17:59:00 99 /min [facility] Systolic blood pressure 2023-01-08 14:51:00 160 mm[Hg] [facility] Diastolic blood pressure 2023-01-08 14:51:00 81 mm[Hg] [facility] Heart rate 2023-01-08 14:50:00 78 /min [facility] Body height 2023-01-08 14:50:00 162.6 cm [facility] Body weight 2023-01-08 14:50:00 64.093 kg [facility] BMI 2023-01-08 14:50:00 24.25 kg/m2 [facility] Oxygen saturation in Arterial blood by Pulse oximetry 2023-01-08 14:50:00 100 /min [facility] Systolic blood pressure 2022-12-03 18:12:00 102 mm[Hg] [facility] Diastolic blood pressure 2022-12-03 18:12:00 54 mm[Hg] [facility] Heart rate 2022-12-03 18:12:00 77 /min [facility] Body temperature 2022-12-03 18:12:00 35.83 [place] [facility] Oxygen saturation in Arterial blood by Pulse oximetry 2022-12-03 18:12:00 99 /min [facility] Respiratory rate 2022-12-03 14:25:00 16 /min [facility] Body weight 2022-12-02 09:44:00 60.464 kg [facility] BMI 2022-12-02 09:44:00 22.88 kg/m2 [facility] Body height 2022-11-28 21:32:00 162.6 cm [facility] Systolic blood pressure 2022-11-28 17:14:00 64 mm[Hg] [facility] Diastolic blood pressure 2022-11-28 17:14:00 39 mm[Hg] [facility] Heart rate 2022-11-28 17:14:00 87 /min [facility] Body height 2022-11-28 17:12:00 162.6 cm [facility] Body weight 2022-11-28 17:12:00 54.885 kg [facility] BMI 2022-11-28 17:12:00 20.77 kg/m2 [facility] Oxygen saturation in Arterial blood by Pulse oximetry 2022-11-28 17:12:00 98 /min [facility] Systolic blood pressure 2022-11-03 13:49:00 128 mm[Hg] [facility] Diastolic blood pressure 2022-11-03 13:49:00 69 mm[Hg] [facility] Heart rate 2022-11-03 13:49:00 80 /min [facility] Body temperature 2022-11-03 13:49:00 36.11 [place] [facility] Respiratory rate 2022-11-03 13:49:00 18 /min [facility] Oxygen saturation in Arterial blood by Pulse oximetry 2022-11-03 13:49:00 97 /min [facility] Body weight 2022-11-03 09:51:00 72.984 kg [facility] BMI 2022-11-03 09:51:00 27.62 kg/m2 [facility] Body height 2022-10-31 22:07:00 162.6 cm [facility] Systolic blood pressure 2022-10-30 15:01:00 171 mm[Hg] [facility] Diastolic blood pressure 2022-10-30 15:01:00 83 mm[Hg] [facility] Heart rate 2022-10-30 15:00:00 96 /min [facility] Body temperature 2022-10-30 15:00:00 37.22 [place] [facility] Body height 2022-10-30 15:00:00 162.6 cm [facility] Body weight 2022-10-30 15:00:00 68.539 kg [facility] BMI 2022-10-30 15:00:00 25.94 kg/m2 [facility] Oxygen saturation in Arterial blood by Pulse oximetry 2022-10-30 15:00:00 94 /min [facility] Heart rate 2022-07-17 16:15:00 65 /min [facility] Respiratory rate 2022-07-17 16:15:00 18 /min [facility] Oxygen saturation in Arterial blood by Pulse oximetry 2022-07-17 16:15:00 99 /min [facility] Systolic blood pressure 2022-07-17 16:10:00 196 mm[Hg] [facility] Diastolic blood pressure 2022-07-17 16:10:00 63 mm[Hg] [facility] Body temperature 2022-07-17 15:55:00 36.5 [place] [facility] Body height 2022-07-17 14:21:00 162.6 cm [facility] Body weight 2022-07-17 14:21:00 66.1 kg [facility] BMI 2022-07-17 14:21:00 25.01 kg/m2 [facility] Respiratory rate 2022-07-17 15:52:00 18 /min [facility] Body height 2022-07-17 14:21:00 162.6 cm [facility] Body weight 2022-07-17 14:21:00 66.1 kg [facility] BMI 2022-07-17 14:21:00 25.01 kg/m2 [facility] Systolic blood pressure 2022-07-17 14:00:00 181 mm[Hg] [facility] Diastolic blood pressure 2022-07-17 14:00:00 71 mm[Hg] [facility] Heart rate 2022-07-17 14:00:00 71 /min [facility] Body temperature 2022-07-17 13:53:00 37.06 [place] [facility] Respiratory rate 2022-07-17 13:53:00 18 /min [facility] Oxygen saturation in Arterial blood by Pulse oximetry 2022-07-17 13:53:00 99 /min [facility] Systolic blood pressure 2022-04-17 19:19:00 160 mm[Hg] Pt denies any chest pain [facility] Diastolic blood pressure 2022-04-17 19:19:00 75 mm[Hg] Pt denies any chest pain [facility] Heart rate 2022-04-17 19:03:00 64 /min [facility] Body temperature 2022-04-17 19:03:00 36.06 [place] [facility] Respiratory rate 2022-04-17 19:03:00 18 /min [facility] Body height 2022-04-17 19:03:00 162.6 cm [facility] Body weight 2022-04-17 19:03:00 66.134 kg [facility] BMI 2022-04-17 19:03:00 25.03 kg/m2 [facility] Oxygen saturation in Arterial blood by Pulse oximetry 2022-04-17 19:03:00 99 /min [facility] Procedures Procedure Date / Time Performed Performing Clinician Source CT HEAD WO CONTRAST 2025-03-09 19:17:32 Isaias Henson [facility] POCT URINALYSIS 2024-09-30 15:29:00 Isaias Henson [facility] URINALYSIS 2024-09-09 20:12:00 Renetta Bradford [facility] LIPASE 2024-09-09 19:37:00 Renetta Bradford [facility] COMP. METABOLIC PANEL ([id number]) 2024-09-09 19:37:00 Renetta Bradford [facility] CBC WITH DIFF 2024-09-09 19:37:00 Renetta Bradford [facility] CBC WITH DIFF 2024-06-28 20:06:00 Isaias Henson [facility] HOME HEALTH - OTHER 2024-03-05 18:25:54 Doctor Unassigned, [place] [facility] LACTIC ACID WHOLE BLOOD 2024-02-11 19:43:00 Freya Ibrahim [facility] LIPASE 2024-02-11 19:42:00 Freya Ibrahim [facility] TROPONIN I 2024-02-11 19:42:00 Freya Ibrahim [facility] COMP. METABOLIC PANEL ([id number]) 2024-02-11 19:42:00 Freya Ibrahim [facility] CBC WITH DIFF 2024-02-11 19:42:00 Freya Ibrahim [facility] CONSENT/REFUSAL FOR DIAGNOSI S AND TREATMENT 2024-02-11 19:15:17 Doctor Unassigned, [place] [facility] 2023-12-26 06:01:00 Doctor Unassigned, [place] [facility] 2023-11-03 06:01:00 Doctor Unassigned, [place] [facility] ECG 12-LEAD 2023-09-23 [facility]:05[facility](),65+YR,0. 5 ML,IM,ADJUVANTED,QUAD(FLUAD) 2023-08-28 20:08:45 Isaias Henson [facility] PNEUMOCOCCAL 20 CONJUGATE (PREVNAR 20) VACCINE 2023-08-28 20:08:45 Isaias Henson [facility] MEDICAL RELEASE/CLEARANCE FORMS 2023-08-28 05:01:00 Doctor Unassigned, [place] [facility] INSURANCE CORRESPONDENCE 2023-08-08 05:01:00 Doctor Unassigned, [place] [facility] 2023-07-06 05:01:00 Doctor Unassigned, [place] [facility] PATIENT QUESTIONNAIRE 2023-06-23 05:01:00 Doctor Unassigned, [place] [facility] ASSIGNMENT OF BENEFITS 2023-06-11 13:42:01 Doctor Unassigned, [place] [facility] 2023-05-29 05:01:00 Doctor Unassigned, [place] [facility] 2023-05-09 05:01:00 Doctor Unassigned, [place] [facility] 2023-04-25 05:01:00 Doctor Unassigned, [place] [facility] 2023-04-02 05:01:00 Doctor Unassigned, [place] [facility] PATIENT FINANCIAL POLICY 2023-03-05 17:51:50 Doctor Unassigned, [place] [facility] - OTHER 2023-02-09 05:01:00 Doctor Unassigned, [place] [facility] - OTHER 2023-01-06 06:01:00 Doctor Unassigned, [place] [facility] EXTERNAL PROVIDER RECORDS 2022-12-26 06:01:00 Doctor Unassigned, [place] [facility] - OTHER 2022-12-20 06:01:00 Doctor Unassigned, C[place] [facility] OTHER 2022-12-10 06:01:00 Doctor Unassigned, [place] [facility] POCT GLUCOSE (AUTOMATED) 2022-12-03 18:13:00 Desean [facility] POCT GLUCOSE (AUTOMATED) 2022-12-03 14:26:00 Tish Bennett [facility] MAGNESIUM 2022-12-03 11:57:00 Yury Hart [facility] BASIC METABOLIC PANEL (NA, K , CL, CO2, GLUCOSE, BUN, CREATININE, CA) 2022-12-03 11:57:00 Yury Hart [facility] CBC WITH DIFF 2022-12-03 11:57:00 Yury Hart [facility] POCT GLUCOSE (AUTOMATED) 2022-12-03 02:18:00 Desean [facility] POCT GLUCOSE (AUTOMATED) 2022-12-02 23:11:00 Tish Bennett [facility] POCT GLUCOSE (AUTOMATED) 2022-12-02 17:47:00 Desean [facility] POCT GLUCOSE (AUTOMATED) 2022-12-02 14:00:00 Desean [facility] BASIC METABOLIC PANEL (NA, K , CL, CO2, GLUCOSE, BUN, CREATININE, CA) 2022-12-02 10:32:00 Jerrica Carranza [facility] EXTERNAL PROVIDER RECORDS 2022-12-02 06:01:00 Doctor Unassigned, [place] [facility] POCT GLUCOSE (AUTOMATED) 2022-12-02 02:45:00 Tish Bennett [facility] POCT GLUCOSE (AUTOMATED) 2022-12-01 22:27:00 Desean [facility] POCT GLUCOSE (AUTOMATED) 2022-12-01 17:32:00 Desean [facility] POCT GLUCOSE (AUTOMATED) 2022-12-01 13:52:00 Desean [facility] BASIC METABOLIC PANEL (NA, K , CL, CO2, GLUCOSE, BUN, CREATININE, CA) 2022-12-01 10:21:00 Jerrica Carranza [facility] CBC WITH DIFF 2022-12-01 10:21:00 Dillon Jerrica [facility] POCT GLUCOSE (AUTOMATED) 2022-12-01 03:11:00 Desean [facility] POCT GLUCOSE (AUTOMATED) 2022-11-30 23:53:00 Desean [facility] POCT GLUCOSE (AUTOMATED) 2022-11-30 23:30:00 Desean [facility] POCT GLUCOSE (AUTOMATED) 2022-11-30 23:17:00 Desean [facility] POCT GLUCOSE (AUTOMATED) 2022-11-30 23:05:00 Desean [facility] POCT GLUCOSE (AUTOMATED) 2022-11-30 17:29:00 Desean [facility] POCT GLUCOSE (AUTOMATED) 2022-11-30 13:51:00 Desean [facility] [facility] CORTISOL AM 2022-11-30 10:28:[address] [facility] BASIC METABOLIC PANEL (NA, K , CL, CO2, GLUCOSE, BUN, CREATININE, CA) 2022-11-30 10:28:00 Jerrica Carranza [facility] CBC WITH DIFF 2022-11-30 10:28:00 Dillon Jerrica [facility] POCT GLUCOSE (AUTOMATED) 2022-11-30 02:44:00 Desean [facility] URINALYSIS 2022-11-30 00:36:[address] [facility] URINE CULTURE 2022-11-30 00:36:00 Desean Jennie [facility] POCT GLUCOSE (AUTOMATED) 2022-11-29 22:35:00 Desean, Jennie [facility] POCT GLUCOSE (AUTOMATED) 2022-11-29 18:15:00 Tish Bennett [facility] POCT GLUCOSE (AUTOMATED) 2022-11-29 13:42:00 Tish Bennett [facility] OCCULT (GUAIAC) BLOOD 2022-11-29 09:58:[address] [facility] FECES CULTURE 2022-11-29 09:57:[address] [facility] CLOSTRIDIUM DIFFICILE TOXIN 2022-11-29 09:57:[address] [facility] MAGNESIUM 2022-11-29 09:56:00 Yury Hart [facility] BASIC METABOLIC PANEL (NA, K , CL, CO2, GLUCOSE, BUN, CREATININE, CA) 2022-11-29 09:56:00 Yury Hart [facility] LIPID PANEL (86417)(TOTAL CHOLESTEROL, TRIGLYCERIDES, HDL) 2022-11-29 09:56:00 Yury Hart [facility] CBC WITH DIFF 2022-11-29 09:56:00 Yury Hart [facility] EXTERNAL PROVIDER RECORDS 2022-11-29 06:01:00 Doctor Unassigned, Cale [facility] POCT GLUCOSE (AUTOMATED) 2022-11-29 02:04:00 Desean [facility] BLOOD CULTURE SCREEN 2022-11-28 21:54:00 Desean Jennie [facility] BLOOD CULTURE SCREEN 2022-11-28 21:53:00 Desean [facility] THYROID STIMULATING HORMONE 2022-11-28 21:28:00 Desean [facility] XR CHEST 1 VW 2022-11-28 18:17:13 Singer [facility] LACTIC ACID WHOLE BLOOD 2022-11-28 18:12:00 Singer [facility] TROPONIN I 2022-11-28 18:04:00 Singer [facility] COMP. METABOLIC PANEL (24457) 2022-11-28 18:04:00 Singer [facility] CBC WITH DIFF 2022-11-28 18:04:00 Win, [facility] HB ECG ROUTINE & RHYTHM STRIP 2022-11-28 17:55:44 Eddie iWn [facility] CONSENT/REFUSAL FOR DIAGNOSI S AND TREATMENT 2022-11-28 17:37:46 Doctor Unassigned, Cale [facility] - OTHER 2022-11-20 06:01:00 Doctor Unassigned, Cale [facility] - OTHER 2022-11-11 06:01:00 Doctor Unassigned, Cale [facility] - OTHER 2022-11-08 06:01:00 Doctor Unassigned, Cale [place] [id number] 2022-11-05 06:01:00 Doctor Unassigned, Cale [facility] POCT GLUCOSE (AUTOMATED) 2022-11-03 13:50:00 Chris Tillman [facility] BASIC METABOLIC PANEL (NA, K , CL, CO2, GLUCOSE, BUN, CREATININE, CA) 2022-11-03 10:35:00 Jerrica Carranza [facility] CBC WITH DIFF 2022-11-03 10:35:00 Jerrica Carranza [facility] POCT GLUCOSE (AUTOMATED) 2022-11-02 22:42:00 Chris Tillman [facility] POCT GLUCOSE (AUTOMATED) 2022-11-02 17:50:00 Chris Tillman [facility] POCT GLUCOSE (AUTOMATED) 2022-11-02 14:14:00 Chris Tillman [facility] BASIC METABOLIC PANEL (NA, K , CL, CO2, GLUCOSE, BUN, CREATININE, CA) 2022-11-02 09:47:00 Jerrica Carranza [facility] CBC WITH DIFF 2022-11-02 09:47:00 Jerrica Carranza [facility] POCT GLUCOSE (AUTOMATED) 2022-11-01 22:47:00 Chris Tillman [facility] POCT GLUCOSE (AUTOMATED) 2022-11-01 17:54:00 Chris Tillman [facility] POCT GLUCOSE (AUTOMATED) 2022-11-01 13:58:00 Chris Tillman [facility] MAGNESIUM 2022-11-01 10:50:00 [facility]OLIC PANEL (NA, K , CL, CO2, GLUCOSE, BUN, CREATININE, CA) 2022-11-01 10:50:00 Jerrica Carranza [facility] CBC WITH DIFF 2022-11-01 10:50:00 Jerrica Carranza Ilda [facility] VITAMIN B12, LEVEL 2022-11-01 03:08:00 [facility] FOLATE 2022-11-01 03:08:00 Nicolás [facility] MAGNESIUM 2022-11-01 02:34:00 Nicolás [facility] FERRITIN SERUM 2022-11-01 02:34:00 Nicolás [facility] IRON 2022-11-01 02:34:00 Nicolás [facility] TOTAL IRON BINDING CAPACITY 2022-11-01 02:34:00 Nicolás [facility] BASIC METABOLIC PANEL (NA, K , CL, CO2, GLUCOSE, BUN, CREATININE, CA) 2022-11-01 02:34:00 Nicolás [facility] CT ABDOMEN PELVIS WO CONTRAST 2022-10-31 18:20:19 Chris Tillman [facility] URINALYSIS 2022-10-31 16:47:00 Chris Tillman [facility] URINE CULTURE 2022-10-31 16:47:00 Chris Tillman [facility] MAGNESIUM 2022-10-31 16:24:00 Nicolás Parth [facility] COMP. METABOLIC PANEL (69691) 2022-10-31 16:24:00 Chris Tillman [facility] LIPID PANEL (12515)(TOTAL CHOLESTEROL, TRIGLYCERIDES, HDL) 2022-10-31 16:24:00 Jerrica Carranza [facility] CBC WITH DIFF 2022-10-31 16:24:00 Chris Tillman [facility] GLYCOSYLATED HEMOGLOBIN (A1C) 2022-10-31 16:24:00 Jerrica Carranza [facility] EKG-12 LEAD 2022-10-31 16:03:18 Chris Tillman [facility] CONSENT/REFUSAL FOR DIAGNOSI S AND TREATMENT 2022-10-31 15:55:25 Doctor Unassigned, Cale [facility] PHACOEMULSIFICATION OF CATARACT WITH INTRAOCULAR LENS IMPLANT 2022-07-17 15:16:00 Vince Vasquez [facility] POCT GLUCOSE (AUTOMATED) 2022-07-17 13:59:00 Vince Vasquez [facility] POCT GLUCOSE (AUTOMATED) 2022-07-17 13:59:00 Vince Vasquez [facility] ASSIGNMENT OF BENEFITS 2022-07-15 17:44:10 Doctor Unassigned, Cale [facility] URINALYSIS 2022-04-17 20:40:00 Queenie Arredondo [facility] POCT URINALYSIS AUTO 2022-04-17 00:00:00 Queenie Arredondo [facility] Encounters Start Date/Time End Date/Time Encounter Type Admission Type Attending [facility] Care Department Encounter ID Source 2023-06-27 10:02:17 Outpatient [facility] [id number] [facility] 2023-06-05 12:07:18 Outpatient [facility] [id number] [facility] 2023-05-26 08:22:48 Outpatient [facility] [id number] [facility] 2023-05-25 13:32:18 Outpatient [facility] [id number] [facility] 2021-09-24 17:46:08 Outpatient VINCE METZGER [facility] OPH [id number] [facility] 2021-09-21 14:52:11 Emergency [facility] [id number] [facility] 2025-06-07 15:30:00 2025-06-07 16:51:54 Office Visit CICI NAYAK, CICI [facility] RUBY CARBONE?[facility] 1.2.840.114 350.1.13.10 4.2.7.2.686 [id number] [facility] 2025-06-02 00:00:00 2025-06-02 09:54:48 Refill Isaias Henson [facility] RUBY CARBONE?[facility] OFF[facility] BU[facility] 1.2.840.114 350.1.13.10 4.2.7.2.686 [id number] 044 [id number] [facility] 2025-05-19 00:00:00 2025-05-23 11:38:35 Telephone [facility] 1.2.840.114 350.1.13.10 4.2.7.2.686 [id number] 044 [id number] [facility] 2025-05-17 00:00:00 2025-05-20 07:27:17 Telephone Isaias Henson [facility] RUBY CARBONE?[facility] BU[facility] 1.2.840.114 350.1.13.10 4.2.7.2.686 [id number] 044 [id number] [facility] 2025-05-19 00:00:00 2025-05-20 07:07:17 [facility]ana [facility] MED[facility] OFFICE BUILD[facility] 1.2.840.114 350.1.13.10 4.2.7.2.686 [id number] 044 [id number] [facility] 2025-05-17 00:00:00 2025-05-18 10:55:14 Telephone [facility]aias [facility]enson [facility] 1.2.840.114 350.1.13.10 4.2.7.2.686 [id number] 044 [id number] [facility] 2025-05-06 00:00:00 2025-05-08 14:04:52 Telephone [facility]aias Henson [facility] 1.2.840.114 350.1.13.10 4.2.7.2.686 [id number] 044 [id number] [facility] 2025-05-01 00:00:00 2025-05-03 08:04:18 [facility] MED[facility] OFF[facility] BUILD[facility] 1.2.840.114 350.1.13.10 4.2.7.2.686 [id number] 044 [id number] [facility] 2025-04-27 14:00:00 2025-04-27 14:02:05 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 Boom Reveles [facility], Boom Ramirez [facility] RAF?[facility] MEDICAL OFFICE BUILDING 1.2.840.114 350.1.13.10 4.2.7.2.686 [id number] [facility] 2025-04-27 13:30:00 2025-04-27 13:54:38 Office Visit [facility] OFF[facility] 1.2.840.114 350.1.13.10 4.2.7.2.686 [id number] 044 [id number] [facility] 2025-03-24 00:00:00 2025-03-28 13:31:17 Isaias Garcia [facility] MED[facility] OFF[facility] BU[facility] 1.2.840.114 350.1.13.10 4.2.7.2.686 [id number] 044 [id number] [facility] 2022-10-11 00:00:00 2025-03-17 21:31:49 Queenie Strauss [facility] 1.2.840.114 350.1.13.10 4.2.7.2.686 [id number] [facility] 2025-03-09 13:56:19 2025-03-09 23:59:00 Outpatient ISAIAS TAN [facility] [id number] [facility] 2025-03-09 13:50:00 2025-03-09 23:59:00 Hospital Encounter Sixto Isaias [facility] 1.0.114 350.1.13.10 4.2.7.2.686 [id number] [facility] 2025-03-02 14:15:00 2025-03-02 14:30:00 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 Lab, Isaias [facility] Lab, Boom Ramirez [facility] SERVICESNiko [facility] OFF[facility] BU[facility] 1.0.114 350.1.13.10 4.2.7.2.686 [id number] [facility] 2025-03-02 14:15:00 2025-03-02 14:15:00 Outpatient R ISAIAS HENSON [facility] [id number] [facility] 2025-03-02 13:30:00 2025-03-02 13:59:01 Office Visit Isaias Henson [facility] SERVICESNiko [facility] OFF[facility] 1..114 350.1.13.10 4.2.7.2.686 [id number] [id number] [facility] 2025-03-02 00:00:00 2025-03-02 08:18:51 [facility] OFF[facility] BUILD[facility] 1.84.114 350.1.13.10 4.2.7.2.686 [id number] 044 [id number] [facility] 2025-02-28 00:00:00 2025-03-01 06:22:12 Refill Henson [facility] MED[facility] OFFICE BUILDING 1.84.114 350.1.13.10 4.2.7.2.686 [id number] [id number] [facility] 2025-01-27 00:00:00 2025-01-27 11:00:31 Refill Henson [facility] MEDICAL OFFICE BUILDING 1.2.840.114 350.1.13.10 4.2.7.2.686 [id number] 044 [id number] [facility] 2025-01-13 00:00:00 2025-01-13 09:59:18 Telephone Isaias Henson [facility] 1.2.840.114 350.1.13.10 4.2.7.2.686 [id number] 044 [id number] [facility] 2025-01-12 00:00:00 2025-01-13 09:33:12 Telephone Isaias Henson [facility] SERVICES[facility] 1.2.840.114 350.1.13.10 4.2.7.2.686 [id number] 044 [id number] [facility] 2025-01-09 00:00:00 2025-01-10 11:47:01 Telephone Isaias Henson [facility] OFF[facility] BUILDING 1.2.840.114 350.1.13.10 4.2.7.2.686 [id number] [id number] [facility] 2025-01-07 00:00:00 2025-01-09 11:04:54 Telephone [facility] OFF[facility] BUILD[facility] 1.2840.114 350.1.13.10 4.2.7.2.686 [id number] 044 [id number] [facility] 2024-03-05 00:00:00 2025-01-08 02:21:25 Orders Only Doctor Unassigned, Cale Doctor Unassigned, Cale [facility] 1.2.840.114 350.1.13.10 4.2.7.2.686 [id number] [facility] 2025-01-05 00:00:00 2025-01-05 12:50:59 Refill Sixto [facility] MEDICAL OFFICE BUILDING 1.2840.114 350.1.13.10 4.2.7.2.686 [id number] [facility] 2024-11-19 00:00:00 2024-11-25 15:57:55 Laney HensonYovanaIsaias [facility] OFF[facility] BUILD[facility] 1.2840.114 350.1.13.10 4.2.7.2.686 [id number] 044 [id number] [facility] 2024-11-13 00:00:00 2024-11-15 09:30:29 WendyIsaias Arrieta [facility] MED[facility] OFFICE BUILDING 1.2840.114 350.1.13.10 4.2.7.2.686 [id number] 044 [id number] [facility] 2024-11-05 00:00:00 2024-11-05 13:22:10 Isaias Garcia [facility] MED[facility] OFFICE BUILDING 1.2840.114 350.1.13.10 4.2.7.2.686 [id number] [id number] [facility] 2024-10-15 00:00:00 2024-10-18 06:29:22 Isaias Garcia [facility] MED[facility] OFFICE BUILDING 1.2840.114 350.1.13.10 4.2.7.2.686 [id number] [facility] 2024-09-30 09:45:00 2024-09-30 10:00:00 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 Lab, Isaias Wasserman, Boom Ramirez [facility] MED[facility] OFFICE BUILDING 1.2840.114 350.1.13.10 4.2.7.2.686 [id number] [facility] 2024-09-30 09:45:00 2024-09-30 09:45:00 Outpatient R ISAIAS HENSON [facility] [id number] [facility] 2024-09-30 09:00:00 2024-09-30 09:29:21 Office Visit Isaias Henson [facility] MED[facility] OFF[facility] BUILDING 1.2.840.114 350.1.13.10 4.2.7.2.686 [id number] [id number] [facility] 2024-09-26 00:00:00 2024-09-27 12:46:19 [facility] MED[facility] OFFICE BUILD[facility] 1.84.114 350.1.13.10 4.2.7.2.686 [id number] 044 [id number] [facility] 2024-09-27 09:00:00 2024-09-27 09:00:00 Outpatient R ISAIAS HENSON [facility] [id number] [facility] 2024-09-23 00:00:00 2024-09-23 10:39:13 Telephone [facility] MED[facility] OFFICE BUILD[facility] 1.84.114 350.1.13.10 4.2.7.2.686 [id number] [id number] [facility] 2024-09-10 00:00:00 2024-09-10 15:29:44 Telephone Jonh Vasquez Miatha R [facility] 1..840.114 350.1.13.10 4.2.7.2.686 [id number] [facility] 2024-09-09 13:07:00 2024-09-09 17:43:00 Emergency X RENETTA BRADFORD [facility] ERT [id number] [facility] 2024-09-09 13:07:00 2024-09-09 17:43:00 Emergency Renetta Bradford [facility] 1.840.114 350.1.13.10 4.2.7.2.686 [id number] [facility] 2024-09-09 00:00:00 2024-09-09 15:30:50 Telephone Sixto [facility] BU[facility] 1.2.840.114 350.1.13.10 4.2.7.2.686 [id number] 044 [id number] [facility] 2024-08-21 00:00:00 2024-08-23 11:26:34 Refill Henson [facility] MED[facility] OFFICE BUILD[facility] 1.2840.114 350.1.13.10 4.2.7.2.686 [id number] 044 [id number] [facility] 2024-07-27 00:00:00 2024-07-28 06:26:08 Refill Henson [facility] MEDICAL OFFICE BUILDING 1.2840.114 350.1.13.10 4.2.7.2.686 [id number] [id number] [facility] 2024-07-01 00:00:00 2024-07-01 16:11:24 Letter (Out) [facility] 1.2.840.114 350.1.13.10 4.2.7.2.686 [id number] [facility] 2024-06-29 00:00:00 2024-06-29 16:01:14 Patient Outreach Shereen Weiss Laura L [facility] 1.2.840.114 350.1.13.10 4.2.7.2.686 [id number] [facility] 2024-06-28 15:00:00 2024-06-28 15:15:00 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 Lab, Isaias Wasserman Lab, Boom Ramirez [facility] MEDICAL OFFICE BUILDING 1.2.840.114 350.1.13.10 4.2.7.2.686 [id number] [facility] 2024-06-28 14:00:00 2024-06-28 14:49:07 Outpatient R ISAIAS HENSON [facility] [id number] [facility] 2024-06-28 14:00:00 2024-06-28 14:49:07 Office Visit Isaias Henson [facility] MED[facility] OFFICE BUILDING 1.840.114 350.1.13.10 4.2.7.2.686 [id number] 044 [id number] [facility] 2024-06-28 00:00:00 2024-06-28 13:07:01 Refill Henson Isaias [facility] MEDICAL OFFICE BUILDING 1.840.114 350.1.13.10 4.2.7.2.686 [id number] 044 [id number] [facility] 2024-06-22 09:45:00 2024-06-22 09:45:00 Outpatient R HENSON ISAIAS [facility] [id number] [facility] 2024-06-17 14:15:00 2024-06-17 14:15:00 Outpatient R ISAIAS HENSON [facility] [id number] [facility] 2024-06-16 12:00:00 2024-06-16 12:00:00 Outpatient ISAIAS TAN [facility] [id number] [facility] 2024-05-24 00:00:00 2024-05-25 06:29:30 Refill Sixto [facility] MEDICAL OFFICE BUILDING 1.840.114 350.1.13.10 4.2.7.2.686 [id number] [id number] [facility] 2024-05-20 00:00:00 2024-05-24 06:27:30 Refill [facility]ovana [facility] OFF[facility]ILD[facility] 1.2.840.114 350.1.13.10 4.2.7.2.686 [id number] [facility] 2024-05-09 00:00:00 2024-05-10 08:02:14 Refill [facility]aias [facility]enson [facility] OFF[facility] BUILD[facility] 1.2.840.114 350.1.13.10 4.2.7.2.686 [id number] 044 [id number] [facility] 2024-04-28 00:00:00 2024-04-28 10:50:52 Telephone [facility]aias Henson [facility] MED[facility] OFF[facility] BUILDING 1.2.840.114 350.1.13.10 4.2.7.2.686 [id number] 044 [id number] [facility] 2024-04-16 00:00:00 2024-04-16 07:13:01 Refill Sixto [facility] MEDICAL OFFICE BUILDING 1.2.840.114 350.1.13.10 4.2.7.2.686 [id number] 044 [id number] [facility] 2024-03-24 13:15:00 2024-03-24 13:30:00 Office Visit [facility]aias Henson [facility] OFF[facility] BUILD[facility] 1.2.840.114 350.1.13.10 4.2.7.2.686 [id number] [id number] [facility] 2024-03-24 13:15:00 2024-03-24 13:15:00 Outpatient R ISAIAS HENSON [facility] [id number] [facility] 2024-03-23 00:00:00 2024-03-23 00:00:00 Telephone [facility] OFF[facility] BUILDING 1.2.840.114 350.1.13.10 4.2.7.2.686 [id number] [id number] [facility] 2024-03-19 00:00:00 2024-03-19 00:00:00 Refill Sixto [facility] 1.2840.114 350.1.13.10 4.2.7.2.686 [id number] [id number] [facility] 2024-02-19 00:00:00 2024-02-19 00:00:00 [facility] 1.20.114 350.1.13.10 4.2.7.2.686 [id number] [facility] 2024-02-18 13:30:00 2024-02-18 13:45:00 Office Visit Sixto [facility] MEDICAL OFFICE BUILD[facility] 1.0.114 350.1.13.10 4.2.7.2.686 [id number] [facility] 2024-02-18 13:30:00 2024-02-18 13:30:00 [id number] 2024-02-12 00:00:00 2024-02-12 00:00:00 Telephone Miriam Jain 1.84.114 350.1.13.10 4.2.7.2.686 [id number] [facility] 2024-02-11 14:24:00 2024-02-11 16:59:00 Emergency X FREYA IBRA[facility]IM [facility] ERT [id number] [facility] 2024-02-11 14:24:00 2024-02-11 16:59:00 Emergency Freya Ibrahim [facility] 1.0.114 350.1.13.10 4.2.7.2.686 [id number] [facility] 2024-02-11 13:45:00 2024-02-11 13:45:00 Outpatient R ISAIAS HENSON [facility] [id number] [facility] 2024-02-11 00:00:00 2024-02-11 00:00:00 Telephone Henson, [facility] MED[facility] OFFICE BUILDING 1.2.840.114 350.1.13.10 4.2.7.2.686 [id number] [facility] 2024-02-04 00:00:00 2024-02-04 00:00:00 [facility] MED[facility] OFF[facility] BUILD[facility] 1.2.840.114 350.1.13.10 4.2.7.2.686 [id number] [facility] 2023-12-26 00:00:00 2023-12-26 00:00:00 Orders Only Doctor Unassigned, Cale [facility] 1.2.840.114 350.1.13.10 4.2.7.2.686 [id number] [facility] 2023-12-17 12:45:00 2023-12-17 13:00:00 Office Visit Sixto Isaias [facility] MEDICAL OFFICE BUILDING 1.2840.114 350.1.13.10 4.2.7.2.686 [id number] [facility] 2023-12-17 12:45:00 2023-12-17 12:45:00 Outpatient ISAIAS TAN [facility] [id number] [facility] 2023-12-10 12:00:00 2023-12-10 12:00:00 Outpatient ISAIAS TAN [facility] [id number] [facility] 2023-12-04 00:00:00 2023-12-04 00:00:00 Refill Sixto [facility] [place] [facility] 1.2840.114 350.1.13.10 4.2.7.2.686 [id number] 044 [id number] [facility] 2023-11-13 00:00:00 2023-11-13 00:00:00 Refill Yovana Hensonony [facility] 1.2840.114 350.1.13.10 4.2.7.2.686 [id number] 044 [id number] [facility] 2023-11-12 00:00:00 2023-11-12 00:00:00 Refill Sixto [facility] [place] [facility] MED[facility] OFF[facility] BUILD[facility] 1.840.114 350.1.13.10 4.2.7.2.686 [id number] 044 [id number] [facility] 2023-11-03 00:00:00 2023-11-03 00:00:00 Orders Only Doctor Unassigned, Cale [facility] 1.2840.114 350.1.13.10 4.2.7.2.686 [id number] 009 [id number] [facility] 2023-10-22 11:30:00 2023-10-22 11:44:29 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 Lab, Boom Henson [facility] [place] [facility] 1.840.114 350.1.13.10 4.2.7.2.686 [id number] [facility] 2023-10-22 11:30:00 2023-10-22 11:44:29 Outpatient ISAIAS TAN [facility] [id number] [facility] 2023-10-21 00:00:00 2023-10-21 00:00:00 Refalejo Henson [facility] [place] [facility] MED[facility] OFF[facility] BUILD[facility] 1.2.840.114 350.1.13.10 4.2.7.2.686 [id number] 044 [id number] [facility] 2023-09-23 14:15:00 2023-09-23 14:54:45 Office Visit Sawdamon Millerderrick Estuardo [facility] [address] [facility] 1.2.840.114 350.1.13.58 9.2.7.2.686 [id number] [facility] 2023-09-21 00:00:00 2023-09-21 00:00:00 Refill Sixto [facility] [place] [facility] MEDICAL OFFICE BUILDING 1.2.840.114 350.1.13.10 4.2.7.2.686 [id number] 044 [id number] [facility] 2023-09-11 00:00:00 2023-09-11 00:00:00 Refill Henson, [facility] [place] [facility] MED[facility] OFF[facility] BUILDING 1.2.840.114 350.1.13.10 4.2.7.2.686 [id number] 044 [id number] [facility] 2023-09-09 00:00:00 2023-09-09 00:00:00 Telephone Sixto [facility] [place] [facility] MED[facility] OFF[facility] BUILD[facility] 1.2.840.114 350.1.13.10 4.2.7.2.686 [id number] 044 [id number] [facility] 2023-09-05 00:00:00 2023-09-05 00:00:00 Telephone Henson, [facility] [place] [facility] MED[facility] OFFICE BUILDING 1.2.840.114 350.1.13.10 4.2.7.2.686 [id number] 044 [id number] [facility] 2023-09-04 13:30:00 2023-09-04 13:30:00 Outpatient R ISAIAS HENOSN [facility] [id number] [facility] 2023-08-28 14:45:00 2023-08-28 15:22:39 Outpatient R ISAIAS HENSON [facility] [id number] [facility] 2023-08-28 14:45:00 2023-08-28 15:22:39 [facility] 1.2840.114 350.1.13.10 4.2.7.2.686 [id number] 044 [id number] [facility] 2023-08-28 00:00:00 2023-08-28 00:00:00 Orders Only Doctor Unassigned, Cale [facility] 1.20.114 350.1.13.10 4.2.7.2.686 [id number] 009 [id number] [facility] 2023-08-13 00:00:00 2023-08-13 00:00:00 Refill Sixto [facility] MEDICAL OFFICE BUILDING 1.20.114 350.1.13.10 4.2.7.2.686 [id number] 044 [id number] [facility] 2023-08-12 14:00:00 2023-08-12 15:57:43 Office Visit Mayda Jones [facility] [address] [facility] 1.20.114 350.1.13.58 9.2.7.2.686 [id number] [facility] 2023-08-12 00:00:00 2023-08-12 00:00:00 [facility] 1.2.114 350.1.13.10 4.2.7.2.686 [id number] 044 [id number] [facility] 2023-08-08 00:00:00 2023-08-08 00:00:00 Orders Only Doctor Unassigned, C[facility] 1.2.840.114 350.1.13.10 4.2.7.2.686 [id number] [id number] [facility] 2023-08-07 00:00:00 2023-08-07 00:00:00 Refill Sixto [facility] [place] [facility] 1.2.840.114 350.1.13.10 4.2.7.2.686 [id number] 044 [id number] [facility] 2023-08-06 00:00:00 2023-08-06 00:00:00 Refill Sixto [facility] [place] [facility] MED[facility] OFFICE BUILDING 1.2840.114 350.1.13.10 4.2.7.2.686 [id number] 044 [id number] [facility] 2023-07-08 00:00:00 2023-07-08 00:00:00 Telephone Sixto [facility] [place] [facility] MEDICAL OFFICE BUILDING 1.2840.114 350.1.13.10 4.2.7.2.686 [id number] 044 [id number] [facility] 2023-07-07 00:00:00 2023-07-07 00:00:00 Refill Sixto [facility] [place] [facility] MEDICAL OFFICE BUILDING 1.2840.114 350.1.13.10 4.2.7.2.686 [id number] 044 [id number] [facility] 2023-07-06 00:00:00 2023-07-06 00:00:00 Orders Only Doctor Unassigned, Cale [facility] 1.2840.114 350.1.13.10 4.2.7.2.686 [id number] 009 [id number] [facility] 2023-06-23 00:00:00 2023-06-23 00:00:00 Orders Only Doctor Unassigned, Cale [facility] 1.2840.114 350.1.13.10 4.2.7.2.686 [id number] 009 [id number] [facility] 2023-06-16 00:00:00 2023-06-16 00:00:00 Telephone Sixto [facility] BU[facility] 1.2.840.114 350.1.13.10 4.2.7.2.686 [id number] 044 [id number] [facility] 2023-06-11 09:00:00 2023-06-11 09:10:26 Outpatient R [facility] [id number] [facility] 2023-06-11 09:00:00 2023-06-11 09:10:26 Office Visit Sixto [facility] 1.2840.114 350.1.13.10 4.2.7.2.686 [id number] 044 [id number] [facility] 2023-06-11 00:00:00 2023-06-11 00:00:00 Orders Only Doctor Unassigned, Cale [facility] 1.2840.114 350.1.13.10 4.2.7.2.686 [id number] 009 [id number] [facility] 2023-05-29 00:00:00 2023-05-29 00:00:00 Orders Only Doctor Unassigned, Cale [facility] 1.2840.114 350.1.13.10 4.2.7.2.686 [id number] 009 [id number] [facility] 2023-05-21 00:00:00 2023-05-21 00:00:00 Refill Sixto [facility] MEDICAL OFFICE BUILDING 1.2840.114 350.1.13.10 4.2.7.2.686 [id number] 044 [id number] [facility] 2023-05-09 00:00:00 2023-05-09 00:00:00 Orders Only Doctor Unassigned, Cale [facility] 1.2840.114 350.1.13.10 4.2.7.2.686 [id number] 009 [id number] [facility] 2023-04-25 00:00:00 2023-04-25 00:00:00 Refill Henson [facility] [place] [facility] BUILD[facility] 1.2840.114 350.1.13.10 4.2.7.2.686 [id number] 044 [id number] [facility] 2023-04-25 00:00:00 2023-04-25 00:00:00 Orders Only Doctor Unassigned, Cale [facility] 1.2.840.114 350.1.13.10 4.2.7.2.686 [id number] 009 [id number] [facility] 2023-04-15 00:00:00 2023-04-15 00:00:00 Refill Henson [facility] [place] [facility] MEDICAL OFFICE BUILDING 1.2840.114 350.1.13.10 4.2.7.2.686 [id number] 044 [id number] [facility] 2023-04-02 00:00:00 2023-04-02 00:00:00 Orders Only Doctor Unassigned, Cale [facility] 1.2840.114 350.1.13.10 4.2.7.2.686 [id number] 009 [id number] [facility] 2023-03-19 00:00:00 2023-03-19 00:00:00 Refill Henson, [facility] [place] BU[facility] 1.2840.114 350.1.13.10 4.2.7.2.686 [id number] 044 [id number] [facility] 2023-03-13 00:00:00 2023-03-13 00:00:00 Refill Henson [facility] [place] [facility] BU[facility] 1.2840.114 350.1.13.10 4.2.7.2.686 [id number] 044 [id number] [facility] 2023-03-11 00:00:00 2023-03-11 00:00:00 Refill Isaias Henson [facility] MEDICAL OFF[facility] BUILDING 1.2840.114 350.1.13.10 4.2.7.2.686 [id number] 044 [id number] [facility] 2023-03-09 00:00:00 2023-03-09 00:00:00 Telephone Isaias Henson [facility] MEDICAL OFFICE BUILDING 1.2840.114 350.1.13.10 4.2.7.2.686 [id number] 044 [id number] [facility] 2023-03-05 13:30:00 2023-03-05 13:45:00 [facility] MED[facility] OFF[facility] BUILDING 1.840.114 350.1.13.10 4.2.7.2.686 [id number] 044 [id number] [facility] 2023-03-05 13:30:00 2023-03-05 13:30:00 Outpatient R ISAIAS HENSON [facility] [id number] [facility] 2023-03-05 00:00:00 2023-03-05 00:00:00 Orders Only Doctor Unassigned, Cale [facility] 1.2840.114 350.1.13.10 4.2.7.2.686 [id number] 009 [id number] [facility] 2023-02-28 00:00:00 2023-02-28 00:00:00 Telephone Isaias Henson [facility] MED[facility] OFF[facility] BUILDING 1.2840.114 350.1.13.10 4.2.7.2.686 [id number] 044 [id number] [facility] 2023-02-28 00:00:00 2023-02-28 00:00:00 Telephone [facility]xto [facility] 1.2.840.114 350.1.13.10 4.2.7.2.686 [id number] 044 [id number] [facility] 2023-02-12 00:00:00 2023-02-12 00:00:00 Refill Henson [facility] MED[facility] OFFICE BUILDING 1.2.840.114 350.1.13.10 4.2.7.2.686 [id number] 044 [id number] [facility] 2023-02-11 00:00:00 2023-02-11 00:00:00 Refill Sixto Isaias [facility] MEDICAL OFFICE BUILDING 1.2840.114 350.1.13.10 4.2.7.2.686 [id number] 044 [id number] [facility] 2023-02-09 00:00:00 2023-02-09 00:00:00 Orders Only Doctor Unassigned, Cale [facility] 1.2.840.114 350.1.13.10 4.2.7.2.686 [id number] [id number] [facility] 2023-02-05 12:30:00 2023-02-05 12:30:00 Outpatient R ISAIAS HENSON [facility] [id number] [facility] 2023-01-25 00:00:00 2023-01-25 00:00:00 Refill Sixto [facility] [place] MEDICAL OFFICE BUILDING 1.2.840.114 350.1.13.10 4.2.7.2.686 [id number] 044 [id number] [facility] 2023-01-22 00:00:00 2023-01-22 00:00:00 [facility] MED[facility] OFF[facility] BUILDING 1.840.114 350.1.13.10 4.2.7.2.686 [id number] 044 [id number] [facility] 2023-01-09 00:00:00 2023-01-09 00:00:00 Refill Sixto [facility] MEDICAL OFFICE BUILDING 1.840.114 350.1.13.10 4.2.7.2.686 [id number] 044 [id number] [facility] 2023-01-08 09:30:00 2023-01-08 09:47:38 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 Lab, Boom Ramirez Sixto [facility] MEDICAL OFFICE BUILDING 1.840.114 350.1.13.10 4.2.7.2.686 [id number] [facility] 2023-01-08 09:30:00 2023-01-08 09:30:00 [facility] [id number] [facility] 2023-01-08 09:00:00 2023-01-08 09:30:00 Office Visit Sixto [facility] MEDICAL OFFICE BUILDING 1.840.114 350.1.13.10 4.2.7.2.686 [id number] 044 [id number] [facility] 2023-01-06 00:00:00 2023-01-06 00:00:00 Orders Only Doctor Unassigned, Cale [facility] 1.0.114 350.1.13.10 4.2.7.2.686 [id number] 009 [id number] [facility] 2022-12-26 00:00:00 2022-12-26 00:00:00 Orders Only Doctor Unassigned, Cale [facility] 1.840.114 350.1.13.10 4.2.7.2.686 [id number] 009 [id number] [facility] 2022-12-20 00:00:00 2022-12-20 00:00:00 Orders Only Doctor Unassigned, Cale [facility] 1.2840.114 350.1.13.10 4.2.7.2.686 [id number] [id number] [facility] 2022-12-17 09:45:00 2022-12-17 09:45:00 Outpatient R ISAIAS HENSON [facility] [id number] [facility] 2022-12-11 00:00:00 2022-12-11 00:00:00 Refill Sixto Isaias [facility] 1.2840.114 350.1.13.10 4.2.7.2.686 [id number] 044 [id number] [facility] 2022-12-10 00:00:00 2022-12-10 00:00:00 Orders Only Doctor Unassigned, Cale [facility] 1.2840.114 350.1.13.10 4.2.7.2.686 [id number] [id number] [facility] 2022-12-04 00:00:00 2022-12-04 00:00:00 Transition of Care Phillip Alexandra GEORGEDu JOÃO RAI 1.2840.114 350.1.13.10 4.2.7.2.686 [id number] [facility] 2022-11-28 11:44:00 2022-12-03 17:54:00 Inpatient X TISH BENNETT [facility] RYAN [id number] [facility] 2022-11-28 11:44:00 2022-12-03 17:54:00 Hospital Encounter Eddie Win David [facility] 1.2.840.114 350.1.13.10 4.2.7.2.686 [id number] [facility] 2022-12-02 13:00:00 2022-12-02 13:00:00 Outpatient R ISAIAS HENSON [facility] [id number] [facility] 2022-12-02 00:00:00 2022-12-02 00:00:00 Telephone Sixto [facility] [place] [facility] BUILDING 1.2.840.114 350.1.13.10 4.2.7.2.686 [id number] 044 [id number] [facility] 2022-11-29 00:00:00 2022-11-29 00:00:00 Telephone Sixto Isaias [facility] BUILD[facility] 1.2.840.114 350.1.13.10 4.2.7.2.686 [id number] 044 [id number] [facility] 2022-11-28 11:00:00 2022-11-28 11:20:00 [facility] 1.2.840.114 350.1.13.10 4.2.7.2.686 [id number] [facility] 2022-11-28 11:00:00 2022-11-28 11:00:00 Outpatient JASKARAN VORA [facility] [id number] [facility] 2022-11-28 00:00:00 2022-11-28 00:00:00 Telephone Sixto Isaias [facility] 1.2.840.114 350.1.13.10 4.2.7.2.686 [id number] 044 [id number] [facility] 2022-11-25 14:00:00 2022-11-25 14:00:00 Outpatient R ISAIAS HENSON [facility] [id number] [facility] 2022-11-20 00:00:00 2022-11-20 00:00:00 Orders Only Doctor Unassigned, Cale [facility] 1.2.840.114 350.1.13.10 4.2.7.2.686 [id number] 009 [id number] [facility] 2022-11-11 00:00:00 2022-11-11 00:00:00 Telephone Sixto [facility] OFFICE BUILDING 1.2.840.114 350.1.13.10 4.2.7.2.686 [id number] 044 [id number] [facility] 2022-11-11 00:00:00 2022-11-11 00:00:00 Refill Sixto [facility] BUILD[facility] 1.2.840.114 350.1.13.10 4.2.7.2.686 [id number] 044 [id number] [facility] 2022-11-11 00:00:00 2022-11-11 00:00:00 Orders Only Doctor Unassigned, Cale [facility] 1.2.840.114 350.1.13.10 4.2.7.2.686 [id number] 009 [id number] [facility] 2022-11-08 00:00:00 2022-11-08 00:00:00 Orders Only Doctor Unassigned, Cale [facility] 1.2.840.114 350.1.13.10 4.2.7.2.686 [id number] 009 [id number] [facility] 2022-11-05 00:00:00 2022-11-05 00:00:00 Transition of Care Man Corado 1.2.840.114 350.1.13.10 4.2.7.2.686 [id number] [facility] 2022-11-05 00:00:00 2022-11-05 00:00:[address] [facility] 1.2.840.114 350.1.13.10 4.2.7.2.686 [id number] 044 [id number] [facility] 2022-11-05 00:00:00 2022-11-05 00:00:00 Orders Only Doctor Unassigned, Cale [facility] 1.114 350.1.13.10 4.2.7.2.686 [id number] 009 [id number] [facility] 2022-10-31 09:59:00 2022-11-03 13:08:00 Inpatient X CHRIS TILLMAN [facility] [id number] [facility] 2022-10-31 09:59:00 2022-11-03 13:08:00 Hospital Encounter Chris Tillman David [facility] 1.114 350.1.13.10 4.2.7.2.686 [id number] 081 [id number] [facility] 2022-10-30 09:30:00 2022-10-30 09:45:00 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 Lab, [facility] 1.114 350.1.13.10 4.2.7.2.686 [id number] [facility] 2022-10-30 09:30:00 2022-10-30 09:30:00 Outpatient R ISAIAS HENSON [facility] [id number] [facility] 2022-10-30 09:00:00 2022-10-30 09:30:00 Office Visit Sixto [facility] 1.114 350.1.13.10 4.2.7.2.686 [id number] 044 [id number] [facility] 2022-10-30 00:00:00 2022-10-30 00:00:00 [facility] 1.114 350.1.13.10 4.2.7.2.686 [id number] 044 [id number] [facility] 2022-10-28 09:00:00 2022-10-28 09:00:00 Outpatient ISAIAS TAN [facility] [id number] [facility] 2022-10-14 00:00:00 2022-10-14 00:00:00 Telephone Isaias Henson [facility] BUILDING 1.840.114 350.1.13.10 4.2.7.2.686 [id number] 044 [id number] [facility] 2022-10-11 00:00:00 2022-10-11 00:00:00 Refill Sixto [facility] OFF[facility] BUILDING 1.840.114 350.1.13.10 4.2.7.2.686 [id number] 044 [id number] [facility] 2022-09-24 14:30:00 2022-09-24 14:30:00 Outpatient R RITO EFFIE [facility] [id number] [facility] 2022-09-23 12:15:00 2022-09-23 12:15:00 Outpatient ISAIAS TAN [facility] [id number] [facility] 2022-09-23 00:00:00 2022-09-23 00:00:00 Telephone Sixto [facility] BUILD[facility] 1..840.114 350.1.13.10 4.2.7.2.686 [id number] 044 [id number] [facility] 2022-08-19 00:00:00 2022-08-19 00:00:00 Refill Sixto [facility] 1..840.114 350.1.13.10 4.2.7.2.686 [id number] 044 [id number] [facility] 2022-08-17 00:00:00 2022-08-17 00:00:00 [facility] 1.2.840.114 350.1.13.10 4.2.7.2.686 [id number] [facility] 2022-07-29 00:00:00 2022-07-29 00:00:00 Refill Isaias Henson [facility] 1.2.840.114 350.1.13.10 4.2.7.2.686 [id number] 044 [id number] [facility] 2022-07-29 00:00:00 2022-07-29 00:00:00 Refill Maria Elena [facility] BUILDING 1.2.840.114 350.1.13.10 4.2.7.2.686 [id number] [facility] 2022-07-17 08:35:00 2022-07-17 11:43:00 Outpatient R VINCE VASQUEZ [facility] [id number] [facility] 2022-07-17 08:35:00 2022-07-17 11:43:00 Hospital Encounter Vince Vasquez [facility] 1.2.840.114 350.1.13.10 4.2.7.2.686 [id number] [facility] 2022-07-17 10:21:00 2022-07-17 10:58:00 Anesthesia Event Abdiel Martínez Fernando [facility] 1.2840.114 350.1.13.10 4.2.7.2.686 [id number] [facility] 2022-07-17 09:32:00 2022-07-17 10:06:00 Surgery Vince Vasquez [facility] 1.2.840.114 350.1.13.10 4.2.7.2.686 [id number] [facility] 2022-07-15 13:45:00 2022-07-15 14:00:00 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 Pob, Adc Lab Vince Renner [facility] BUILDING 1.840.114 350.1.13.10 4.2.7.2.686 [id number] [facility] 2022-07-15 13:45:00 2022-07-15 13:45:00 Outpatient R VINCE VASQUEZ [facility] [id number] [facility] 2022-07-15 00:00:00 2022-07-15 00:00:00 Orders Only Doctor Unassigned, Cale [facility] 1.840.114 350.1.13.10 4.2.7.2.686 [id number] [facility] 2022-07-15 00:00:00 2022-07-15 00:00:00 Refill Sixto Isaias [facility] MEDICAL OFF[facility] BUILDING 1.840.114 350.1.13.10 4.2.7.2.686 [id number] [facility] 2022-07-01 00:00:00 2022-07-01 00:00:00 [facility] MED[facility] OFF[facility] BUILDING 1.840.114 350.1.13.10 4.2.7.2.686 [id number] [facility] 2022-07-01 00:00:00 2022-07-01 00:00:00 Refill Queenie Arredondo [facility] BUILDING 1.840.114 350.1.13.10 4.2.7.2.686 [id number] [facility] 2022-06-12 11:30:00 2022-06-12 11:30:00 [facility] [id number] 2022-06-11 00:00:00 2022-06-11 00:00:00 Refill Sixto [facility] MEDICAL OFF[facility] BUILDING 1.2.840.114 350.1.13.10 4.2.7.2.686 [id number] [facility] 2022-05-29 13:30:00 2022-05-29 13:30:00 Outpatient R KARLY [facility]OND[facility] [id number] [facility] 2022-05-13 00:00:00 2022-05-13 00:00:00 Refill Sixto [facility] MEDICAL OFFICE BUILDING 1.2.840.114 350.1.13.10 4.2.7.2.686 [id number] [facility] 2022-04-23 00:00:00 2022-04-23 00:00:00 Refalejo Henson [facility] MEDICAL OFF[facility] BUILDING 1.2.840.114 350.1.13.10 4.2.7.2.686 [id number] [facility] 2022-04-23 00:00:00 2022-04-23 00:00:00 Telephone Queenie Arredondo [facility] BU[facility] 1.2.840.114 350.1.13.10 4.2.7.2.686 [id number] [facility] 2022-04-23 00:00:00 2022-04-23 00:00:00 Refalejo Henson [facility] RAF?[facility] 1.2.840.114 350.1.13.10 4.2.7.2.686 [id number] [facility] 2022-04-17 14:00:00 2022-04-17 14:45:45 Outpatient KARLY EPPSTNEY [facility] [id number] [facility] 2022-04-17 14:00:00 2022-04-17 14:45:45 Office Visit Maria Elena Kell [facility] 1.2.840.114 350.1.13.10 4.2.7.2.686 [id number] [facility] 2022-04-17 14:00:00 2022-04-17 14:00:00 [facility] [id number] [facility] 2022-04-03 16:00:00 2022-04-03 16:10:00 Imm/Inj Visit Vaccine, [facility] Isaias Henson [facility] 1.2.840.114 350.1.13.10 4.2.7.2.686 [id number] [id number] [facility] 2022-04-03 16:00:00 2022-04-03 16:00:00 Outpatient ISAIAS TAN [facility] [id number] [facility] 2022-04-03 13:15:00 2022-04-03 13:30:00 [facility] 1.2.840.114 350.1.13.10 4.2.7.2.686 [id number] [id number] [facility] 2022-04-03 13:15:00 2022-04-03 13:15:00 Outpatient ISAIAS TAN [facility] [id number] [facility] 2022-04-03 13:15:00 2022-04-03 13:15:00 Outpatient ISAIAS TAN [facility] [id number] [facility] 2022-04-02 00:00:00 2022-04-02 00:00:00 Refalejo Henson [facility] 1.2.840.114 350.1.13.10 4.2.7.2.686 [id number] 044 [id number] [facility] 2022-03-26 00:00:00 2022-03-26 00:00:00 [facility]ill [facility] 1.2.840.114 350.1.13.10 4.2.7.2.686 [id number] [facility] 2022-03-25 00:00:00 2022-03-25 00:00:00 Refalejo Henson Isaias [facility] RAF?[facility] 1..840.114 350.1.13.10 4.2.7.2.686 [id number] [facility] 2022-03-23 00:00:00 2022-03-23 00:00:00 [facility] 1.2.840.114 350.1.13.10 4.2.7.2.686 [id number] [facility] 2022-03-13 13:45:00 2022-03-13 13:45:00 Outpatient Chris CANTUHENSONISAIAS [facility] [id number] [facility] 2022-02-20 00:00:00 2022-02-20 00:00:00 Refalejo Henson [facility] RAF?[facility] 1.2.840.114 350.1.13.10 4.2.7.2.686 [id number] [facility] 2022-02-19 00:00:00 2022-02-19 00:00:00 [facility] 1.2.840.114 350.1.13.10 4.2.7.2.686 [id number] [id number] [facility] 2021-12-27 00:00:00 2021-12-27 00:00:00 Refill [facility]aias [facility]enson [facility] 1.2.840.114 350.1.13.10 4.2.7.2.686 [id number] 044 [id number] [facility] 2021-12-26 00:00:00 2021-12-26 00:00:00 Telephone [facility]aias Henson [facility] 1.2.840.114 350.1.13.10 4.2.7.2.686 [id number] 044 [id number] [facility] 2021-12-18 00:00:00 2021-12-18 00:00:00 [facility]ill [facility]xto [facility] 1.2.840.114 350.1.13.10 4.2.7.2.686 [id number] 044 [id number] [facility] 2021-11-20 00:00:00 2021-11-20 00:00:00 Telephone [facility]aias Henson [facility] 1.2840.114 350.1.13.10 4.2.7.2.686 [id number] [facility] 2021-10-22 00:00:00 2021-10-22 00:00:00 Telephone [facility]aias Henson [facility] 1.2.840.114 350.1.13.10 4.2.7.2.686 [id number] [facility] 2021-10-01 00:00:2021-10-01 00:00:00 Refill [facility]aias [facility]enson [facility] 1..840.114 350.1.13.10 4.2.7.2.686 [id number] 044 [id number] [facility] 2021-09-27 00:00:00 2021-09-27 00:00:00 [facility] 1.84.114 350.1.13.10 4.2.7.2.686 [id number] [facility] 2021-09-26 14:00:00 2021-09-26 14:05:04 Outpatient ISAIAS TAN [facility] [id number] [facility] 2021-09-26 14:00:00 2021-09-26 14:00:00 Outpatient Chris HENSON ISAIAS [facility] [id number] [facility] 2021-09-26 13:26:07 2021-09-26 13:41:07 [facility] 1.840.114 350.1.13.10 4.2.7.2.686 [id number] [facility] 2021-09-19 13:15:00 2021-09-19 13:15:00 Outpatient ISAIAS TAN [facility] [id number] [facility] 2021-09-19 00:00:00 2021-09-19 00:00:00 Refill Sixto [facility] Raf?[facility] 1.840.114 350.1.13.10 4.2.7.2.686 [id number] [id number] [facility] 2021-09-07 00:00:00 2021-09-07 00:00:00 Orders Only Doctor Unassigned, Cale [facility] 1.2.840.114 350.1.13.10 4.2.7.2.686 [id number] [facility] 2021-08-20 00:00:00 2021-08-20 00:00:00 Telephone Isaias Henson [facility] 1.2.840.114 350.1.13.10 4.2.7.2.686 [id number] 044 [id number] [facility] 2021-08-12 00:00:00 2021-08-12 00:00:00 Refill Sixto [facility] Office Building [facility] 1.2.840.114 350.1.13.10 4.2.7.2.686 [id number] 044 [id number] [facility] 2021-07-25 06:36:00 2021-07-25 09:28:00 Hospital Encounter Vince Vasquez [facility] 1.2.840.114 350.1.13.10 4.2.7.2.686 [id number] [facility] 2021-07-25 07:30:00 2021-07-25 08:11:00 Surgery Vince Vasquez [facility] 1.2.840.114 350.1.13.10 4.2.7.2.686 [id number] [facility] 2021-07-24 10:16:59 2021-07-24 10:31:59 Laboratory Only Only, Adc Test Vince Vasquez [facility] 1.2.840.114 350.1.13.10 4.2.7.2.686 [id number] [facility] 2021-07-24 10:15:00 2021-07-24 10:15:00 Outpatient R VINCE VASQUEZ [facility] [id number] [facility] 2021-07-23 00:00:00 2021-07-23 00:00:00 Telephone Isaias Henson [facility] Raf?[facility] 1.2.840.114 350.1.13.10 4.2.7.2.686 [id number] [facility] 2021-07-20 12:50:28 2021-07-20 13:05:28 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 Pob, Adc [facility] 1.2.840.114 350.1.13.10 4.2.7.2.686 [id number] [facility] 2021-07-20 13:00:00 2021-07-20 13:00:00 Outpatient R CHRISTINA VINCE [facility] [id number] [facility] 2021-07-20 00:00:00 2021-07-20 00:00:00 Orders Only Doctor Unassigned, Cale [facility] 1.2840.114 350.1.13.10 4.2.7.2.686 [id number] [facility] 2021-07-18 13:32:13 2021-07-18 13:47:13 Office Visit Isaias Henson [facility] Raf?[facility] 1.2.840.114 350.1.13.10 4.2.7.2.686 [id number] [facility] 2021-07-18 13:30:00 2021-07-18 13:30:00 Outpatient [facility] [id number] [facility] 2021-06-06 00:00:00 2021-06-06 00:00:00 Orders Only Doctor Unassigned, Cale [facility] 1.2840.114 350.1.13.10 4.2.7.2.686 [id number] [facility] 2021-03-21 13:00:00 2021-03-21 13:00:00 Outpatient R HENSON, ISAIAS [facility] [id number] [facility] 2021-01-05 12:30:00 2021-01-05 12:30:00 Outpatient CHRISTINE ZEPEDA [facility] [id number] [facility] 2020-12-20 13:00:00 2020-12-20 13:00:00 Outpatient ISAIAS TAN [facility] [id number] [facility] 2020-12-15 12:30:00 2020-12-15 12:30:00 Outpatient CHRISTINE ZEPEDA [facility] [id number] [facility] 2020-12-07 14:10:00 2020-12-07 14:10:00 Outpatient CHRISTINE ZEPEDA [facility] [id number] [facility] 2020-11-08 14:15:00 2020-11-08 14:15:00 Outpatient ISAIAS TAN [facility] [id number] [facility] 2020-10-26 13:00:00 2020-10-26 13:00:00 Outpatient Chris [facility] [id number] [facility] 2020-08-29 10:00:00 2020-08-29 10:00:00 Outpatient ISAIAS TAN [facility] [id number] [facility] 2020-04-24 15:00:00 2020-04-24 15:00:00 Outpatient RICKY JIMENEZ [facility] [id number] [facility] 2020-03-13 10:00:00 2020-03-13 10:00:00 Outpatient ISAIAS TAN [facility] [id number] [facility] 2020-03-01 13:15:00 2020-03-01 13:15:00 Outpatient ISAIAS TAN [facility] [id number] [facility] 2019-12-01 17:26:13 2019-12-01 21:43:00 Emergency X NICOLETTE [facility]BS [facility] ERT [id number] [facility] Results Test Description Test Time Test Comments Results Result Comments Source CT Head wo contrast 20:16:02 CT HEAD WO CONTRAST HISTORY:84 years old Female with Headache, new or worsening (Age >= 50y) COMPARISON: CT head without 07/23/2020 TECHNIQUE: Noncontrast axial images of the head, with coronal and sagittalreformats. FINDINGS: The ventricles and cerebral sulci are normal in caliber and configuration.No hydrocephalus, midline shift or pathological extra-axial fluidcollection is present. The basal cisterns are unremarkable. There is no acute intracranial hemorrhage or significant mass effect.Periventricular and patchy deep white matter hypoattenuation is nonspecificand likely represents microvascular ischemic changes. The venegas-white matterdifferentiation is preserved. The mastoid air cells and paranasal air sinuses are clear. Prominentarachnoid granulations of the posterior calvarium. Hyperostosis offrontalis interna noted. The calvarium and central skull base are otherwiseunremarkable. Prominent atherosclerotic plaque of the intradural vertebral arteries andcarotid siphons is noted [facility] with [id number] 03:27:38* Test Item Value Reference Range Interpretation Comme nts WBC (test code = 6690-2) 6.00 4.30-11.10 RBC (test code = 789-8) 3.16 3.93-5.25 L HGB (test code = 718-7) 10.2 g/dL 11.6-15.0 L HCT (test code = 4544-3) 32.3 % 35.7-45.2 L MCV (test code = 787-2) 102.2 fL 80.6-95.5 H MCH (test code = 785-6) 32.3 pg 25.9-32.8 MCHC (test code = 786-4) 31.6 g/dL 31.6-35.1 RDW-SD (test code = 14990-7) 55.9 fL 39.0-49.9 H RDW-CV (test code = 788-0) 14.9 % 12.0-15.5 PLT (test code = 777-3) 206 166-358 MPV (test code = 12275-9) 11.9 fL 9.5-12.9 NRBC/100 WBC (test code = 7389855674) 0.0 0.0-10.0 NRBC x10^3 (test code = 4119737985) See_Comment [Automated messa ge] The system which generated this result transmitted reference range: 10*3/?L. The reference range was not used to interpret this result as normal/abnormal. GRAN MAT (NEUT) % (test code = 770-8) 53.1 % IMM GRAN % (test code = 5669546614) 0.50 % LYMPH % (test code = 736-9) 31.7 % MONO % (test code = 5905-5) 9.8 % EOS % (test code = 713-8) 3.7 % BASO % (test code = 706-2) 1.2 % GRAN MAT x10^3(ANC) (test code = 6161712484) 3.19 10*3/uL 1.88-7.09 IMM GRAN x10^3 (test code = 3211347907) 0.03 10*3/uL 0.00-0.06 LYMPH x10^3 (test code = 731-0) 1.90 10*3/uL 1.32-3.29 MONO x10^3 (test code = 742-7) 0.59 10*3/uL 0.33-0.92 EOS x10^3 (test code = 711-2) 0.22 10*3/uL 0.03-0.39 BASO x10^3 (test code = 704-7) 0.07 10*3/uL 0.01-0.07 Lab Interpretation (test code = 86889-5) Abnormal [facility] - [id number] 18:25:54Ordered by an unspecified provider.[facility] GLUCOSE (AUTOMATED)2022-12-03 18:35:25* Test Item Value Reference Range Interpretation Comme nts POCT GLU (test code = 9296541946) 185 mg/dL 70-110 H Lab Interpretation (test cod e = 98426-7) Abnormal [facility] GLUCOSE (AUTOMATED)2022-12-03 14:37:09* Test Item Value Reference Range Interpretation Comme nts POCT GLU (test code = 6030888549) 119 mg/dL 70-110 H Lab Interpretation (test cod e = 81911-1) Abnormal [id number] 12:52:57* Test Item Value Reference Range Interpretation Comme nts MAGNESIUM (test code = 1881166506) 1.8 mg/dL 1.7-2.4 Lab Interpretation (test cod e = 53913-1) Normal [facility] (NA, K, CL, CO2, GLUCOSE, BUN, CREATININE, CA)2022-12-03 12:52:37* Test Item Value Reference Range Interpretation Comme nts NA (test code = 2206879614) 134 mmol/L 135-145 L K (test code = 7931463263) 3.4 mmol/L 3.5-5.0 L CL (test code = 1284687710) 108 mmol/L 98-108 CO2 TOTAL (test code = 1039152096) 25 mmol/L 23-31 AGAP (test code = 4588801255) 2-16 L BUN (test code = 8075962732) 36 mg/dL 7-23 H GLUCOSE (test code = 9091923762) 92 mg/dL 70-110 CREATININE (test code = 6267005901) 1.38 mg/dL 0.50-1.04 H CALCIUM (test code = 4806229584) 7.4 mg/dL 8.6-10.6 L eGFR (test code = 5024006084) mL/min/1.73m2 BONY (test code = BONY) Association [...] imaging tests). Lab Interpretation (test code = 25633-7) Abnormal [facility] WITH [id number] 12:31:57* Test Item Value Reference Range Interpretation Comme nts WBC (test code = 6690-2) See_Comment [Automated [employer]] The system which generated this result transmitted reference range: 4.30 - 11.10 10*3/?L. The reference range was not used to interpret this result as normal/abnormal. RBC (test code = 789-8) See_Comment L [Automated [employer]] The system which generated this result transmitted [...] 33.2 g/dL 31.6-35.1 RDW-SD (test code = 08159-3) 49.9 fL 39.0-49.9 RDW-CV (test code = 788-0) 15.0 % 12.0-15.5 PLT (test code = 777-3) See_Comment [Automated [employer]] The system which generated this result transmitted reference range: 166 - 358 10*3/?L. The reference range was not used to interpret this result as normal/abnormal. MPV (test code = 00155-5) 10.2 fL 9.5-12.9 NRBC/100 WBC (test code = 4344005450) See_Comment [Automated me ssage] The system which generated this result transmitted reference range: 0.0 - 10.0 /100 WBCs. The reference range was not used to interpret this result as normal/abnormal. NRBC x10^3 (test code = 8465587618) See_Comment [Automated messa ge] The system which generated this result transmitted reference range: 10*3/?L. The reference range was not used to interpret this result as normal/abnormal. GRAN MAT (NEUT) % (test code = 770-8) 49.5 % IMM GRAN % (test code = 4615028345) 0.30 % LYMPH % (test code = 736-9) 34.4 % MONO % (test code = 5905-5) 13.0 % EOS % (test code = 713-8) 1.8 % BASO % (test code = 706-2) 1.0 % GRAN MAT x10^3(ANC) (test code = 9304798768) 3.55 10*3/uL 1.88-7.09 IMM GRAN x10^3 (test code = 1953125209) 0.00-0.06 LYMPH x10^3 (test code = 731-0) 2.46 10*3/uL 1.32-3.29 MONO x10^3 (test code = 742-7) 0.93 10*3/uL 0.33-0.92 H EOS x10^3 (test code = 711-2) 0.13 10*3/uL 0.03-0.39 BASO x10^3 (test code = 704-7) 0.07 10*3/uL 0.01-0.07 Lab Interpretation (test code = 42108-2) Abnormal [facility] GLUCOSE (AUTOMATED)2022-12-03 02:40:24* Test Item Value Reference Range Interpretation Comme nts POCT GLU (test code = 1534797544) 153 mg/dL 70-110 H Lab Interpretation (test cod e = 05675-2) Abnormal [facility] GLUCOSE (AUTOMATED)2022-12-02 23:13:25* Test Item Value Reference Range Interpretation Comme nts POCT GLU (test code = 7924228689) 81 mg/dL 70-110 Lab Interpretation (test cod e = 09190-9) Normal [facility] GLUCOSE (AUTOMATED)2022-12-02 17:51:15* Test Item Value Reference Range Interpretation Comme nts POCT GLU (test code = 5228865709) 138 mg/dL 70-110 H Lab Interpretation (test cod e = 61889-0) Abnormal [facility] GLUCOSE (AUTOMATED)2022-12-02 14:08:07* Test Item Value Reference Range Interpretation Comme nts POCT GLU (test code = 8741236215) 74 mg/dL 70-110 Lab Interpretation (test cod e = 08868-9) Normal [facility] METABOLIC PANEL (NA, K, CL, CO2, GLUCOSE, BUN, CREATININE, CA)2022-12-02 12:11:00* Test Item Value Reference Range Interpretation Comme nts NA (test code = 0716658417) 135 mmol/L 135-145 K (test code = 1176774799) 3.5 mmol/L 3.5-5.0 CL (test code = 8237461099) 109 mmol/L 98-108 H CO2 TOTAL (test code = 0930474919) 24 mmol/L 23-31 AGAP (test code = 7065140242) 2-16 BUN (test code = 9150490055) 39 mg/dL 7-23 H GLUCOSE (test code = 4979044848) 75 mg/dL 70-110 CREATININE (test code = 4878701686) 1.50 mg/dL 0.50-1.04 H CALCIUM (test code = 1853335615) 7.3 mg/dL 8.6-10.6 L eGFR (test code = 5159032721) mL/min/1.73m2 BONY (test code = BONY) Association [...] imaging tests). Lab Interpretation (test code = 62944-1) Abnormal [facility] GLUCOSE (AUTOMATED)2022-12-02 02:49:05* Test Item Value Reference Range Interpretation Comme nts POCT GLU (test code = 9331993806) 124 mg/dL 70-110 H Lab Interpretation (test cod e = 53099-6) Abnormal [facility] GLUCOSE (AUTOMATED)2022-12-01 22:31:31* Test Item Value Reference Range Interpretation Comme nts POCT GLU (test code = 4776827073) 131 mg/dL 70-110 H Lab Interpretation (test cod e = 19567-0) Abnormal [facility] GLUCOSE (AUTOMATED)2022-12-01 18:09:02* Test Item Value Reference Range Interpretation Comme nts POCT GLU (test code = 7748743861) 179 mg/dL 70-110 H Lab Interpretation (test cod e = 36625-7) Abnormal [facility] GLUCOSE (AUTOMATED)2022-12-01 13:54:43* Test Item Value Reference Range Interpretation Comme nts POCT GLU (test code = 5368912502) 81 mg/dL 70-110 Lab Interpretation (test cod e = 39083-0) Normal [facility] WITH [id number] 11:45:31* Test Item Value Reference Range Interpretation [...] 34.7 g/dL 31.6-35.1 RDW-SD (test code = 61757-3) 49.2 fL 39.0-49.9 RDW-CV (test code = 788-0) 15.1 % 12.0-15.5 PLT (test code = 777-3) See_Comment [Automated messa ge] The system which generated this result transmitted reference range: 166 - 358 10*3/?L. The reference range was not used to interpret this result as normal/abnormal. MPV (test code = 20149-7) 10.8 fL 9.5-12.9 NRBC/100 WBC (test code = 6653215814) See_Comment [Automated [facility] ssage] The system which generated this result transmitted reference range: 0.0 - 10.0 /100 WBCs. The reference range was not used to interpret this result as normal/abnormal. NRBC x10^3 (test code = 9709643311) See_Comment [Automated messa ge] The system which generated this result transmitted reference range: 10*3/?L. The reference range was not used to interpret this result as normal/abnormal. GRAN MAT (NEUT) % (test code = 770-8) 61.4 % IMM GRAN % (test code = 5737570018) 0.50 % LYMPH % (test code = 736-9) 24.2 % MONO % (test code = 5905-5) 12.0 % EOS % (test code = 713-8) 1.2 % BASO % (test code = 706-2) 0.7 % GRAN MAT x10^3(ANC) (test code = 4692439669) 6.19 10*3/uL 1.88-7.09 IMM GRAN x10^3 (test code = 2630050061) 0.05 10*3/uL 0.00-0.06 LYMPH x10^3 (test code = 731-0) 2.44 10*3/uL 1.32-3.29 MONO x10^3 (test code = 742-7) 1.21 10*3/uL 0.33-0.92 H EOS x10^3 (test code = 711-2) 0.12 10*3/uL 0.03-0.39 BASO x10^3 (test code = 704-7) 0.07 10*3/uL 0.01-0.07 Lab Interpretation (test code = 18457-1) Abnormal [facility] METABOLIC PANEL (NA, K, CL, CO2, GLUCOSE, BUN, CREATININE, CA)2022-12-01 11:37:12* Test Item Value Reference Range Interpretation Comme nts NA (test code = 9769593504) 135 mmol/L 135-145 K (test code = 6726900664) 3.5 mmol/L 3.5-5.0 CL (test code = 8046349354) 110 mmol/L 98-108 H CO2 TOTAL (test code = 8544629762) 22 mmol/L 23-31 L AGAP (test code = 2995661220) 2-16 BUN (test code = 8697554312) 46 mg/dL 7-23 H GLUCOSE (test code = 9381306188) 88 mg/dL 70-110 CREATININE (test code = 3748570595) 1.58 mg/dL 0.50-1.04 H CALCIUM (test code = 6318971013) 7.4 mg/dL 8.6-10.6 L eGFR (test code = 3056983560) mL/min/1.73m2 BONY (test code = BONY) Association [...] imaging tests). Lab Interpretation (test code = 83911-0) Abnormal [facility] GLUCOSE (AUTOMATED)2022-12-01 03:28:31* Test Item Value Reference Range Interpretation Comme nts POCT GLU (test code = 4684305657) 227 mg/dL 70-110 H Lab Interpretation (test cod e = 07576-0) Abnormal [facility] GLUCOSE (AUTOMATED)2022-11-30 23:55:28* Test Item Value Reference Range Interpretation Comme nts POCT GLU (test code = 5388407622) 53 mg/dL 70-110 L Lab Interpretation (test cod e = 09321-8) Abnormal [facility] GLUCOSE (AUTOMATED)2022-11-30 23:55:28* Test Item Value Reference Range Interpretation Comme nts POCT GLU (test code = 5555448867) 65 mg/dL 70-110 L Lab Interpretation (test cod e = 50418-5) Abnormal [facility] GLUCOSE (AUTOMATED)2022-11-30 23:55:28* Test Item Value Reference Range Interpretation Comme nts POCT GLU (test code = 4823593316) 88 mg/dL 70-110 Lab Interpretation (test cod e = 57704-9) Normal [facility] GLUCOSE (AUTOMATED)2022-11-30 23:13:35* Test Item Value Reference Range Interpretation Comme nts POCT GLU (test code = 3618831163) 45 mg/dL 70-110 LL Lab Interpretation (test cod e = 86915-3) [id number] 19:46:03* Test Item Value Reference Range Interpretation Comme nts ADDISON AM (test code = 2338596061) 16.7 ug/dL 4.5-23.0 BONY (test code = BONY) Biotin has been reported to cause a positive bias, interpret results relative to patient's use of biotin. Lab Interpretation (test code = 73151-0) Normal [facility] GLUCOSE (AUTOMATED)2022-11-30 18:00:43* Test Item Value Reference Range Interpretation Comme nts POCT GLU (test code = 2279643147) 241 mg/dL 70-110 H Lab Interpretation (test cod e = 52490-9) Abnormal [facility] GLUCOSE (AUTOMATED)2022-11-30 14:12:28* Test Item Value Reference Range Interpretation Comme nts POCT GLU (test code = 0108957999) 92 mg/dL 70-110 Lab Interpretation (test cod e = 18319-8) Normal [facility] WITH [id number] 11:56:05* Test Item Value Reference Range Interpretation [...] 34.4 g/dL 31.6-35.1 RDW-SD (test code = 30206-5) 47.9 fL 39.0-49.9 RDW-CV (test code = 788-0) 14.8 % 12.0-15.5 PLT (test code = 777-3) See_Comment [Automated messa ge] The system which generated this result transmitted reference range: 166 - 358 10*3/?L. The reference range was not used to interpret this result as normal/abnormal. MPV (test code = 17184-3) 10.6 fL 9.5-12.9 NRBC/100 WBC (test code = 1105957077) See_Comment [Automated [facility] ssage] The system which generated this result transmitted reference range: 0.0 - 10.0 /100 WBCs. The reference range was not used to interpret this result as normal/abnormal. NRBC x10^3 (test code = 0735739370) See_Comment [Automated messa ge] The system which generated this result transmitted reference range: 10*3/?L. The reference range was not used to interpret this result as normal/abnormal. GRAN MAT (NEUT) % (test code = 770-8) 71.7 % IMM GRAN % (test code = 8962749351) 0.60 % LYMPH % (test code = 736-9) 17.1 % MONO % (test code = 5905-5) 9.1 % EOS % (test code = 713-8) 1.0 % BASO % (test code = 706-2) 0.5 % GRAN MAT x10^3(ANC) (test code = 2362531764) 8.78 10*3/uL 1.88-7.09 H IMM GRAN x10^3 (test code = 7254982193) 0.07 10*3/uL 0.00-0.06 H LYMPH x10^3 (test code = 731-0) 2.09 10*3/uL 1.32-3.29 MONO x10^3 (test code = 742-7) 1.11 10*3/uL 0.33-0.92 H EOS x10^3 (test code = 711-2) 0.12 10*3/uL 0.03-0.39 BASO x10^3 (test code = 704-7) 0.06 10*3/uL 0.01-0.07 Lab Interpretation (test code = 28641-3) Abnormal [facility] METABOLIC PANEL (NA, K, CL, CO2, GLUCOSE, BUN, CREATININE, CA)2022-11-30 11:11:21* Test Item Value Reference Range Interpretation Comme nts NA (test code = 0613509096) 136 mmol/L 135-145 K (test code = 2720603788) 3.2 mmol/L 3.5-5.0 L CL (test code = 4788408495) 110 mmol/L 98-108 H CO2 TOTAL (test code = 4787246059) 22 mmol/L 23-31 L AGAP (test code = 2183432517) 2-16 BUN (test code = 3873440184) 49 mg/dL 7-23 H GLUCOSE (test code = 5225520306) 92 mg/dL 70-110 CREATININE (test code = 2564228229) 1.71 mg/dL 0.50-1.04 H CALCIUM (test code = 9035738555) 7.2 mg/dL 8.6-10.6 L eGFR (test code = 2368039063) mL/min/1.73m2 BONY (test code = BONY) Association [...] imaging tests). Lab Interpretation (test code = 57565-5) Abnormal [facility] GLUCOSE (AUTOMATED)2022-11-30 03:59:50* Test Item Value Reference Range Interpretation Comme nts POCT GLU (test code = 4122825581) 174 mg/dL 70-110 H Lab Interpretation (test cod e = 48378-7) Abnormal [facility] GLUCOSE (AUTOMATED)2022-11-30 02:46:55* Test Item Value Reference Range Interpretation Comme nts POCT GLU (test code = 5450060578) 174 mg/dL 70-110 H Lab Interpretation (test cod e = 25883-9) Abnormal [facility] GLUCOSE (AUTOMATED)2022-11-29 18:40:59* Test Item Value Reference Range Interpretation Comme nts POCT GLU (test code = 0179255138) 138 mg/dL 70-110 H Lab Interpretation (test cod e = 59824-0) Abnormal [facility] GLUCOSE (AUTOMATED)2022-11-29 15:14:10* Test Item Value Reference Range Interpretation Comme nts POCT GLU (test code = 8751124169) 88 mg/dL 70-110 Lab Interpretation (test cod e = 54210-9) Normal [facility] GLUCOSE (AUTOMATED)2022-11-29 02:27:02* Test Item Value Reference Range Interpretation Comme nts POCT GLU (test code = 9259343838) 174 mg/dL 70-110 H Lab Interpretation (test cod e = 51782-7) [facility] [id number] 23:36:44 * Test Item Value Reference Range Interpretation Comme nts TSH (test code = 7059922257) See_Comment Biotin has been reported to cause a negative bias, interpret results relative to patient's use of biotin. [Automated message] The system which generated this result transmitted reference range: 0.45 - 4.70 mIU/L. The reference range was not used to interpret this result as normal/abnormal. Lab Interpretation (test code = 85376-2) [facility] [id number] 18:34:27* Test Item Value Reference Range Interpretation Comments TROPONIN I (test code = 4398177259) 0.076 ng/mL See_Comment H [Automated message] The [...] of biotin. Lab Interpretation (test code = 30131-9) [facility] (27175)2022-11-28 18:25:16* Test Item Value Reference Range Interpretation Comme nts NA (test code = 8039669838) 133 mmol/L 135-145 L K (test code = 8062641851) 2.8 mmol/L 3.5-5.0 LL CL (test code = 4535641768) 99 mmol/L 98-108 CO2 TOTAL (test code = 2032022921) 25 mmol/L 23-31 AGAP (test code = 6400261597) 2-16 BUN (test code = 6129043715) 58 mg/dL 7-23 H GLUCOSE (test code = 9531587762) 103 mg/dL 70-110 CREATININE (test code = 0029104232) 2.06 mg/dL 0.50-1.04 H TOTAL BILI (test code = 4932725535) 0.9 mg/dL 0.1-1.1 CALCIUM (test code = 3677467846) 7.8 mg/dL 8.6-10.6 L T PROTEIN (test code = 5102168087) 5.8 g/dL 6.3-8.2 L ALBUMIN (test code = 1517866680) 2.8 g/dL 3.5-5.0 L ALK PHOS (test code = 3350390534) 58 U/L 34-122 ALTv (test code = 1742-6) 16 U/L 5-35 AST(SGOT) (test code = 4007733654) 28 U/L 13-40 eGFR (test code = 4332607396) mL/min/1.73m2 BONY (test code = BONY) Association [...] imaging tests). Lab Interpretation (test code = 05050-3) Abnormal [facility] WITH [id number] 18:11:22* Test Item Value Reference Range Interpretation [...] 34.0 g/dL 31.6-35.1 RDW-SD (test code = 32268-4) 48.7 fL 39.0-49.9 RDW-CV (test code = 788-0) 14.7 % 12.0-15.5 PLT (test code = 777-3) See_Comment [Automated message] The system which generated this result transmitted reference range: 166 - 358 10*3/?L. The reference range was not used to interpret this result as normal/abnormal. MPV (test code = 07903-0) 10.2 fL 9.5-12.9 NRBC/100 WBC (test code = 9936249393) See_Comment [Automated message] The system which generated this result transmitted reference range: 0.0 - 10.0 /100 WBCs. The reference range was not used to interpret this result as normal/abnormal. NRBC x10^3 (test code = 3108973390) See_Comment [Automated message] The system which generated this result transmitted reference range: 10*3/?L. The reference range was not used to interpret this result as normal/abnormal. GRAN MAT (NEUT) % (test code = 770-8) 76.4 % IMM GRAN % (test code = 6051302947) 0.60 % LYMPH % (test code = 736-9) 14.1 % MONO % (test code = 5905-5) 7.6 % EOS % (test code = 713-8) 0.7 % BASO % (test code = 706-2) 0.6 % GRAN MAT x10^3(ANC) (test code = 7967883417) 10.51 10*3/uL 1.88-7.09 H IMM GRAN x10^3 (test code = 4314443679) 0.08 10*3/uL 0.00-0.06 H LYMPH x10^3 (test code = 731-0) 1.94 10*3/uL 1.32-3.29 MONO x10^3 (test code = 742-7) 1.05 10*3/uL 0.33-0.92 H EOS x10^3 (test code = 711-2) 0.10 10*3/uL 0.03-0.39 BASO x10^3 (test code = 704-7) 0.08 10*3/uL 0.01-0.07 H Lab Interpretation (test code = 70184-8) Abnormal [facility] GLUCOSE (AUTOMATED)2022-11-03 15:19:59* Test Item Value Reference Range Interpretation Comme nts POCT GLU (test code = 9469164829) 79 mg/dL 70-110 Lab Interpretation (test cod e = 21820-6) Normal [facility] GLUCOSE (AUTOMATED)2022-11-02 22:46:18* Test Item Value Reference Range Interpretation Comme nts POCT GLU (test code = 6635614792) 122 mg/dL 70-110 H Lab Interpretation (test cod e = 93256-1) Abnormal [facility] GLUCOSE (AUTOMATED)2022-11-02 18:01:09* Test Item Value Reference Range Interpretation Comme [facility] POCT GLU (test code = 8083525272) 125 mg/dL 70-110 H Lab Interpretation (test cod e = 37576-3) [facility]2022-11-02 14:36:18* Test Item Value Reference Range Interpretation Comme nts POCT GLU (test code = 6680752541) 79 mg/dL 70-110 Lab Interpretation (test cod e = 39298-3) Normal [facility] METABOLIC PANEL (NA, K, CL, CO2, GLUCOSE, BUN, CREATININE, CA)2022-11-02 10:44:48* Test Item Value Reference Range Interpretation Comme nts NA (test code = 8655979554) 138 mmol/L 135-145 K (test code = 0528463202) 3.8 mmol/L 3.5-5.0 CL (test code = 7808149055) 110 mmol/L 98-108 H CO2 TOTAL (test code = 6294250207) 25 mmol/L 23-31 AGAP (test code = 9373798514) 2-16 BUN (test code = 8783573045) 17 mg/dL 7-23 GLUCOSE (test code = 1490042755) 113 mg/dL 70-110 H CREATININE (test code = 7906242524) 1.12 mg/dL 0.50-1.04 H CALCIUM (test code = 5445509646) 7.9 mg/dL 8.6-10.6 L eGFR (test code = 7337971181) mL/min/1.73m2 BOYN (test code = BONY) Association of Glomerular [...] imaging tests). Lab Interpretation (test code = 84259-0) Abnormal [facility] WITH [id number] 10:20:28* Test Item Value Reference Range Interpretation Comme nts WBC (test code = 6690-2) See_Comment [Automated [employer]] The system which generated this result transmitted reference range: 4.30 - 11.10 10*3/?L. The reference range was not used to interpret this result as normal/abnormal. RBC (test code = 789-8) See_Comment L [Automated [employer]] The system which generated this result transmitted [...] 33.2 g/dL 31.6-35.1 RDW-SD (test code = 00446-8) 53.6 fL 39.0-49.9 H RDW-CV (test code = 788-0) 15.9 % 12.0-15.5 H PLT (test code = 777-3) See_Comment [Automated messa ge] The system which generated this result transmitted reference range: 166 - 358 10*3/?L. The reference range was not used to interpret this result as normal/abnormal. MPV (test code = 34213-1) 11.4 fL 9.5-12.9 NRBC/100 WBC (test code = 2188945416) See_Comment [Automated me ssage] The system which generated this result transmitted reference range: 0.0 - 10.0 /100 WBCs. The reference range was not used to interpret this result as normal/abnormal. NRBC x10^3 (test code = 7719716968) See_Comment [Automated messa ge] The system which generated this result transmitted reference range: 10*3/?L. The reference range was not used to interpret this result as normal/abnormal. GRAN MAT (NEUT) % (test code = 770-8) 55.4 % IMM GRAN % (test code = 6310134092) 1.00 % LYMPH % (test code = 736-9) 29.2 % MONO % (test code = 5905-5) 9.6 % EOS % (test code = 713-8) 4.0 % BASO % (test code = 706-2) 0.8 % GRAN MAT x10^3(ANC) (test code = 0349876802) 3.37 10*3/uL 1.88-7.09 IMM GRAN x10^3 (test code = 5638645943) 0.06 10*3/uL 0.00-0.06 LYMPH x10^3 (test code = 731-0) 1.77 10*3/uL 1.32-3.29 MONO x10^3 (test code = 742-7) 0.58 10*3/uL 0.33-0.92 EOS x10^3 (test code = 711-2) 0.24 10*3/uL 0.03-0.39 BASO x10^3 (test code = 704-7) 0.05 10*3/uL 0.01-0.07 Lab Interpretation (test code = 06790-7) Abnormal [facility] GLUCOSE (AUTOMATED)2022-11-01 22:51:07* Test Item Value Reference Range Interpretation Comme nts POCT GLU (test code = 1074464084) 107 mg/dL 70-110 Lab Interpretation (test cod e = 61443-1) Normal [facility] GLUCOSE (AUTOMATED)2022-11-01 18:04:33* Test Item Value Reference Range Interpretation Comme nts POCT GLU (test code = 6531464004) 148 mg/dL 70-110 H Lab Interpretation (test cod e = 07337-6) Abnormal [facility] GLUCOSE (AUTOMATED)2022-11-01 14:03:41* Test Item Value Reference Range Interpretation Comme nts POCT GLU (test code = 0539138648) 75 mg/dL 70-110 Lab Interpretation (test cod e = 59477-2) [facility] 03:13:45* Test Item Value Reference Range Interpretation Comme nts MAGNESIUM (test code = 4267729127) 0.7 mg/dL 1.7-2.4 L Lab Interpretation (test cod e = 26430-3) [facility] Hemoglobin (A1C)2022-11-01 00:53:02* Test Item Value Reference Range Interpretation Comme [facility] HGB A1C (test code = 4548-4) 4.2 % 4.0-5.7 BONY (test code = BONY) Reference RangesNormal: <5.7%Prediabetes: 5.7 - 6.4%Diabetes: > 6.5% Lab Interpretation (test code = 11041-9) [facility] (Total Cholesterol, Triglycerides, HDL) - [id number] 00:36:06* Test Item Value Reference Range Interpretation Comme nts CHOL (test code = 5440380986) 108 mg/dL 120-200 L HDL (test code = 4753548618) 25 mg/dL See_Comment L [Automated [employer]] The system which generated this result transmitted reference range: >=50. The reference range was not used to interpret this result as normal/abnormal. HDLC RATIO (test code = 1986893194) See_Comment [Automated [employer]] The system which generated this result transmitted reference range: <=4.5. The reference range was not used to interpret this result as normal/abnormal. TRIG (test code = 3725676198) 168 mg/dL 30-170 LDL CHOL (test code = 87205-7) 49 mg/dL See_Comment [Automated [employer]] The system which generated this result transmitted reference range: <=160. The reference range was not used to interpret this result as normal/abnormal. VLDL (test code = 2318999857) 34 mg/dL 5-60 Lab Interpretation (test code = 09408-0) Abnormal [facility]. METABOLIC PANEL (58447)2022-10-31 16:48:46* Test Item Value Reference Range Interpretation Comme nts NA (test code = 1991476733) 138 mmol/L 135-145 K (test code = 9041960714) 3.0 mmol/L 3.5-5.0 L CL (test code = 5363246570) 106 mmol/L 98-108 CO2 TOTAL (test code = 5052995364) 25 mmol/L 23-31 AGAP (test code = 0987953846) 2-16 BUN (test code = 7845223351) 16 mg/dL 7-23 GLUCOSE (test code = 4873941418) 79 mg/dL 70-110 CREATININE (test code = 5481492484) 1.24 mg/dL 0.50-1.04 H TOTAL BILI (test code = 6353022302) 0.9 mg/dL 0.1-1.1 CALCIUM (test code = 3334687836) 8.5 mg/dL 8.6-10.6 L T PROTEIN (test code = 6947739813) 5.6 g/dL 6.3-8.2 L ALBUMIN (test code = 7254435312) 2.8 g/dL 3.5-5.0 L ALK PHOS (test code = 5596167045) 51 U/L 34-122 ALTv (test code = 1742-6) 17 U/L 5-35 AST(SGOT) (test code = 9400470153) 35 U/L 13-40 eGFR (test code = 2712989288) mL/min/1.73m2 BONY (test code = BONY) Association [...] imaging tests). Lab Interpretation (test code = 28013-9) Abnormal [facility] WITH [id number] 16:33:02* Test Item Value Reference Range Interpretation [...] 33.4 g/dL 31.6-35.1 RDW-SD (test code = 01224-6) 55.0 fL 39.0-49.9 H RDW-CV (test code = 788-0) 15.8 % 12.0-15.5 H PLT (test code = 777-3) See_Comment [Automated message] The system which generated this result transmitted reference range: 166 - 358 10*3/?L. The reference range was not used to interpret this result as normal/abnormal. MPV (test code = 76040-5) 11.5 fL 9.5-12.9 NRBC/100 WBC (test code = 4354345857) See_Comment [Automated message] The system which generated this result transmitted reference range: 0.0 - 10.0 /100 WBCs. The reference range was not used to interpret this result as normal/abnormal. NRBC x10^3 (test code = 4988408805) See_Comment [Automated message] The system which generated this result transmitted reference range: 10*3/?L. The reference range was not used to interpret this result as normal/abnormal. GRAN MAT (NEUT) % (test code = 770-8) 83.0 % IMM GRAN % (test code = 7180103029) 0.80 % LYMPH % (test code = 736-9) 8.0 % MONO % (test code = 5905-5) 6.5 % EOS % (test code = 713-8) 1.2 % BASO % (test code = 706-2) 0.5 % GRAN MAT x10^3(ANC) (test code = 8467234116) 11.06 10*3/uL 1.88-7.09 H IMM GRAN x10^3 (test code = 0382891999) 0.11 10*3/uL 0.00-0.06 H LYMPH x10^3 (test code = 731-0) 1.07 10*3/uL 1.32-3.29 L MONO x10^3 (test code = 742-7) 0.86 10*3/uL 0.33-0.92 EOS x10^3 (test code = 711-2) 0.16 10*3/uL 0.03-0.39 BASO x10^3 (test code = 704-7) 0.07 10*3/uL 0.01-0.07 Lab Interpretation (test code = 32396-7) Abnormal [facility] GLUCOSE (AUTOMATED)2022-07-17 14:01:47* Test Item Value Reference Range Interpretation Comme nts POCT GLU (test code = 3133603916) 92 mg/dL 70-110 Lab Interpretation (test cod e = 76884-3) Normal [facility] GLUCOSE (AUTOMATED)2022-07-17 14:01:47* Test Item Value Reference Range Interpretation Comme nts POCT GLU (test code = 0146636487) 92 mg/dL 70-110 Lab Interpretation (test cod e = 89029-4) Normal [facility] URINALYSIS, [id number] 19:19:00 * Test Item Value Reference Range [...] 3267) Clear Lab Interpretation (test code = 01617-3) Abnormal [facility] Notes Date/Time Note Provider Source 2025-06-02 09:53:49 Images from the original note were not included. Notes: Last Refilled: Name from pharmacy: ELIQUIS 2.5 MG TABLET Will file in chart as: ELIQUIS 2.5 mg tablet Sig: TAKE 1 TABLET BY MOUTH IN THE MORNING AND 1 TABLET IN THE EVENING. INDICATIONS: ATRIAL FIBRILLATION Disp: 60 tablet Refills: 2 Start: 06/02/2025 Class: eRX For: Pacemaker To pharmacy: testing Last ordered: 3 months ago (03/01/2025) by Isaias Henson MD Last refill: 04/30/2025 Rx #: [id number] Anti-coagulants Wuzvmz4706/02/2025 12:21 AM Protocol Details Cr in normal range and within 360 days RBC in normal range and within 360 days PLT in normal range and within 360 days HCT in normal range and within 360 days HGB in normal range and within 360 days Valid encounter within last 12 months To be filled at: [id number] [address] Recent Visits Date Type Provider Dept 04/27/25 Office Visit Isaias Henson MD [facility] 03/02/25 Office Visit Isaias Henson MD [facility] 09/30/24 Office Visit Isaias Henson MD [facility] 06/28/24 Office Visit Isaias Henson MD [facility] [...] meeting all other requirements Brigitte Barbosa MA [facility] 2025-05-23 10:52:20 OK [facility] 2025-05-23 10:30:22 Spoke to patient's [facility] who states that patient is doing well and was currently working with physical therapy. She denied the red area on left buttocks worsening and states they have barrier cream and it is covered. She wanted to follow up on OT order. RN called [facility] and spoke to Josette who states that they would fax over orders needed and nursing note regarding the patients wound. Soha Gordillo RN [facility] 2025-05-23 06:07:29 How is she now T [facility] 2025-05-19 15:19:46 Recent Visits Date Type Provider Dept 04/27/25 Office Visit Isaias Henson MD [facility] 03/02/25 Office Visit Isaias Henson MD [facility] 09/30/24 Office Visit Isaias Henson MD [facility] 06/28/24 Office Visit Isaias Henson MD [facility] [...] diphenoxylate-atropine 2.5-0.025 mg tablet 20 tablet 0 01/27/2025 -- -- Sig: Take 1 tablet by mouth every 6 (six) hours as needed for Other (diarrhea). Yoel Ho MA [facility] 2025-05-19 13:39:10 Called patient and spoke to patient's granddaughter who states that patient has a dime size red area to left buttocks, she denied open skin, drainage and fever. She states that it currently has A&D lotion and gauze over it. Patient's granddaughter states that a nurse from [facility] will be by later today to assess patient for home health nursing services. She also asked about OT orders. She was told to keepi the red area clean and covered and to provide cushion to the area if possible. She was told that Dr. Henson would be back on Friday and we would follow up with them then regarding the home health orders. She verbalized understanding. [facility] 2025-05-19 13:03:46 Daughter Ann is currently stating back on 05/17/25 was called in before stating pt has a wound on the left hip thigh area near panty line area and is wanting to know what kind of medication Dr Henson will be calling in for pt. [facility] [place] Humaira Andres [facility] 2025-05-18 10:48:32 Called Therese back to follow up on previous phone call. Spoke to Shereen from [facility] [phone] who stated that they already had orders but would call back if anything else was needed. Soha Gordillo RN [facility] 2025-05-17 16:00:02 Please review and sign if appropriate. Brigitte Barbosa MA [facility] 2025-05-17 14:57:22 Zenaida with [facility] is requesting a additional order for occupational therapy. Humaira Andres [facility] 2025-05-17 12:56:21 Yoel Trevino is a 84 year old female and Therese the pts Physical therapist calling to report that the pt has developed a sore that is open on the right part of her bottom, no discoloration but it is open and the size of a dime. Needing to know if PCP wants to place nursing orders to take a look. Call back #: [phone] Please contact and advise. Piper Ardon [facility] 2025-05-17 12:51:05 Yoel Trevino is a 84 year old female and Therese the pts Physical Therapist is calling from [facility] to state PT evaluation yesterday, wanting to do 3 x a week for 3 weeks besides the week of May 27. As pt gets stronger can talk about inpatient. Pt has also developed a sore that is open on the right part of her bottom, no discoloration but it is open and the size of a dime. Needing to know if PCP wants to place nursing orders to take a look. Call back #: [phone] Please contact and advise. Piepr Ardon [facility] 2025-05-06 14:05:57 Waqas Coxken sent Radiology report placed in provider box Radha Li [facility] 2025-05-03 08:00:58 Last Refilled: ENTRESTO 24-26 mg tablet 60 tablet 2 01/31/2025 -- No Sig: TAKE 1 TABLET BY MOUTH EVERY MORNING AND EVENING. Sent to pharmacy as: Entresto 24 mg-26 mg tablet (sacubitriL-valsartan) Class: eRX Route: Oral Order: [id number] Date/Time Signed: 01/31/2025 13:35 E-Prescribing Status: Receipt confirmed by pharmacy (01/31/2025 1:35 PM CDT) Recent Visits Date Type Provider Dept 04/27/25 Office Visit Isaias Henson MD [facility] 03/02/25 Office Visit Isaias Henson MD [facility] 09/30/24 Office Visit Isaias Henson MD [facility] 06/28/24 Office Visit Isaias Henson MD [facility] [...] authorizing provider and meeting all other requirements [facility] 2025-04-27 14:00:00 Images from the original note were not included. Venipuncture collection performed by clean technique on the left anticubitus. Total of 1 attempts were made. Slight pressure and a bandage/dressing were applied to the site(s). The patient experienced no complications. The following specimens were processed according to instructions and sent to [facility] laboratories per lab order on 04/27/2025 : LT BLUE SST 1 RED LAV 2 PPT DK GREEN (LiHep) DK GREEN (SodH) VENEGAS DK BLUE (K2) DK BLUE (S) ACD Blood Culture NIPT/NTD [facility] 2025-04-27 13:30:00 Addended by: ISAIAS HENSON MD on: 04/27/2025 01:49 PM Modules accepted: Orders [facility] 2025-03-02 14:15:00 Given stool kits with collection/drop-off instructions. Reagan Donovan [facility] 2025-03-02 08:14:39 Received PA for Knees Orthosis, placed in provider box. 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 Sent to pharmacy as: fenofibrate micronized 200 mg capsule (TRICOR) Class: eRX Route: Oral Order: [id number] Date/Time Signed: 11/25/2024 15:57 E-Prescribing Status: Receipt confirmed by pharmacy (11/25/2024 3:57 PM IRRIGATING PUMP OPERATOR) Disp Refills Start End N[facility] GABAPENTIN 300 mg capsule 180 capsule 1 11/12/2023 -- No Sig: TAKE 1 CAPSULE BY MOUTH IN THE MORNING AND IN THE EVENING Sent to pharmacy as: gabapentin 300 mg capsule (NEURONTIN) Class: eRX Order: [id number] Date/Time Signed: 11/12/2023 09:40 E-Prescribing Status: Receipt confirmed by pharmacy (11/12/2023 9:40 AM IRRIGATING PUMP OPERATOR) Disp Refills Start End N[facility]S METOPROLOL SUCCINATE XL 50 mg 24 hr tablet 90 tablet 0 11/25/2024 -- No Sig: TAKE 1 TABLET BY MOUTH EVERY DAY IN THE MORNING Sent to pharmacy as: metoprolol succinate ER 50 mg tablet,extended release 24 hr (TOPROL XL) Class: eRX Route: Oral Order: [id number] Date/Time Signed: 11/25/2024 15:57 E-Prescribing Status: Receipt confirmed by pharmacy (11/25/2024 3:57 PM IRRIGATING PUMP OPERATOR) Disp Refills Start End N[facility]OL[facility]S PANTOPRAZOLE 40 mg EC tablet 90 tablet 1 06/28/2024 -- No Sig: TAKE 1 TABLET BY MOUTH EVERY DAY IN THE MORNING Sent to pharmacy as: pantoprazole 40 mg tablet,delayed release (PROTONIX) Class: eRX Route: Oral Order: [id number] Date/Time Signed: 06/28/2024 13:06 E-Prescribing Status: Receipt confirmed by pharmacy (06/28/2024 1:07 PM CDT) Disp Refills Start End N[facility]OL[facility]S PAROXETINE 40 mg tablet 90 tablet 0 11/15/2024 -- No Sig: TAKE 1 TABLET BY MOUTH EVERY DAY Sent to pharmacy as: PARoxetine 40 mg tablet (PAXIL) Class: eRX Order: [id number] Date/Time Signed: 11/15/2024 09:30 E-Prescribing Status: Receipt confirmed by pharmacy (11/15/2024 9:30 AM IRRIGATING PUMP OPERATOR) Notes: Please review Recent Visits Date Type Provider Dept 09/30/24 Office Visit Isaias Henson MD [facility] 06/28/24 Office Visit Isaias Henson MD [facility] 03/24/24 Office Visit Isaias Henson MD [facility] 02/18/24 Office Visit Isaias Henson MD [facility] 12/17/23 Office Visit Henson, Isaias, MD [facility] Showing recent visits within past 540 days with a meds authorizing provider and meeting all other requirements Future Appointments No visits were found meeting these conditions. Showing future appointments within next 150 days with a meds authorizing provider and meeting all other requirements Office Visit on 09/30/2024 Component Date Value POCT U SP GRAV 09/30/2024 1.020 POCT PH U 09/30/2024 5 POCT U LEUK EST 09/30/2024 trace POCT U NIT 09/30/2024 neg POCT U PROT 09/30/2024 trace POCT U GLU 09/30/2024 100 POCT U KETONE 09/30/2024 + POCT U UROBILI 09/30/2024 1 POCT U BILI 09/30/2024 + POCT U BLD 09/30/2024 trace POCT U COLOR 09/30/2024 dark yellow POCT U APPEAR 09/30/2024 hazy URINE CULTURE 09/30/2024 > 100,000 CFU/mL mixed aerobic organisms - suggests endogenous microbial contamination Admission on 09/09/2024, Discharged on 09/09/2024 Component Date Value NA 09/09/2024 135 K 09/09/2024 3.6 CL 09/09/2024 99 CO2 TOTAL 09/09/2024 29 AGAP 09/09/2024 7 BUN 09/09/2024 40 (H) GLUCOSE 09/09/2024 157 (H) CREATININE 09/09/2024 2.39 (H) TOTAL BILI 09/09/2024 1.1 CALCIUM 09/09/2024 9.0 T PROTEIN 09/09/2024 7.1 ALBUMIN 09/09/2024 3.7 ALK PHOS 09/09/2024 69 ALTv 09/09/2024 24 AST(SGOT) 09/09/2024 46 (H) eGFR 09/09/2024 19.4 WBC 09/09/2024 8.62 RBC 09/09/2024 3.03 (L) HGB 09/09/2024 9.7 (L) HCT 09/09/2024 29.5 (L) MCV 09/09/2024 97.4 (H) MCH 09/09/2024 32.0 MCHC 09/09/2024 32.9 RDW-SD 09/09/2024 54.4 (H) RDW-CV 09/09/2024 15.2 PLT 09/09/2024 195 MPV 09/09/2024 11.5 NRBC/100 WBC 09/09/2024 0.0 NRBC x10 3 09/09/2024 <0.01 GRAN MAT (NEUT) % 09/09/2024 63.1 IMM GRAN % 09/09/2024 0.50 LYMPH % 09/09/2024 23.2 MONO % 09/09/2024 10.2 EOS % 09/09/2024 2.3 BASO % 09/09/2024 0.7 GRAN MAT x10 3 (ANC) 09/09/2024 5.44 IMM GRAN x10 3 09/09/2024 0.04 LYMPH x10 3 09/09/2024 2.00 MONO x10 3 09/09/2024 0.88 EOS x10 3 09/09/2024 0.20 BASO x10 3 09/09/2024 0.06 LIPASE 09/09/2024 107 APPEARANCE 09/09/2024 Slightly Cloudy (A) COLOR 09/09/2024 Yellow PH 09/09/2024 5.0 SP GRAVITY 09/09/2024 1.012 GLU U QUAL 09/09/2024 Normal BLOOD 09/09/2024 Negative KETONES 09/09/2024 Negative PROTEIN 09/09/2024 Negative UROBILIN 09/09/2024 2.0 mg/dL (A) BILIRUBIN 09/09/2024 Negative NITRITE 09/09/2024 Negative LEUK ERASMO 09/09/2024 500/uL (A) RBC/HPF 09/09/2024 2 WBC/HPF 09/09/2024 41 (H) BACTERIA 09/09/2024 Moderate (A) MUCOUS 09/09/2024 Slight (A) SQ EPITH 09/09/2024 2 WBC CLUMPS 09/09/2024 6 (H) HYAL CAST 09/09/2024 6 (H) URINE CULTURE 09/09/2024 <10,000 CFU/mL Enterococcus faecalis (A) 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 on 06/28/2024 Component Date Value NA 06/28/2024 140 K 06/28/2024 4.2 CL 06/28/2024 103 CO2 TOTAL 06/28/2024 27 AGAP 06/28/2024 10 BUN 06/28/2024 29 (H) GLUCOSE 06/28/2024 105 CREATININE 06/28/2024 2.15 (H) TOTAL BILI 06/28/2024 0.9 CALCIUM 06/28/2024 8.4 (L) T PROTEIN 06/28/2024 6.9 ALBUMIN 06/28/2024 3.5 ALK PHOS 06/28/2024 76 ALTv 06/28/2024 27 AST(SGOT) 06/28/2024 59 (H) eGFR 06/28/2024 22.1 CHOL 06/28/2024 120 HDL 06/28/2024 18 (L) HDLC RATIO 06/28/2024 6.7 (H) TRIG 06/28/2024 248 (H) LDL CHOL 06/28/2024 52 VLDL 06/28/2024 50 HGB A1C 06/28/2024 5.2 Office Visit on 06/28/2024 Component Date Value WBC 06/28/2024 6.00 RBC 06/28/2024 3.16 (L) HGB 06/28/2024 10.2 (L) HCT 06/28/2024 32.3 (L) MCV 06/28/2024 102.2 (H) MCH 06/28/2024 32.3 MCHC 06/28/2024 31.6 RDW-SD 06/28/2024 55.9 (H) RDW-CV 06/28/2024 14.9 PLT 06/28/2024 206 MPV 06/28/2024 11.9 NRBC/100 WBC 06/28/2024 0.0 NRBC x10 3 06/28/2024 <0.01 GRAN MAT (NEUT) % 06/28/2024 53.1 IMM GRAN % 06/28/2024 0.50 LYMPH % 06/28/2024 31.7 MONO % 06/28/2024 9.8 EOS % 06/28/2024 3.7 BASO % 06/28/2024 1.2 GRAN MAT x10 3 (ANC) 06/28/2024 3.19 IMM GRAN x10 3 06/28/2024 0.03 LYMPH x10 3 06/28/2024 1.90 MONO x10 3 06/28/2024 0.59 EOS x10 3 06/28/2024 0.22 BASO x10 3 06/28/2024 0.07 Milly Akhtar RN [facility] 2025-01-27 10:55:36 Notes: please review and advise Last Refilled: diphenoxylate-atropine 2.5-0.025 mg tablet 20 tablet 0 01/05/2025 -- No Sig: TAKE 1 TABLET BY MOUTH EVERY 6 (SIX) HOURS NEEDED FOR OTHER (DIARRHEA). Sent to pharmacy as: diphenoxylate-atropine 2.5 mg-0.025 mg tablet (LOMOTIL) Class: eRX Notes to Pharmacy: This request is for a new prescription for a controlled substance as required by Federal/State law. DX Code Needed . Route: Oral Order: [id number] Date/Time Signed: 01/05/2025 12:50 E-Prescribing Status: Receipt confirmed by pharmacy (01/05/2025 12:51 PM IRRIGATING PUMP OPERATOR) ONDANSETRON 4 mg disintegrating tablet 30 tablet 0 08/23/2024 -- No Sig: TAKE 1 TABLET BY MOUTH EVERY 8 HOURS NEEDED FOR NAUSEA AND VOMITING . Sent to pharmacy as: ondansetron 4 mg disintegrating tablet (ZOFRAN-ODT) Class: eRX Order: [id number] Date/Time Signed: 08/23/2024 11:26 E-Prescribing Status: Receipt confirmed by pharmacy (08/23/2024 11:26 AM CDT) Recent Visits Date Type Provider Dept 09/30/24 Office Visit Isaias Henson MD [facility] 06/28/24 Office Visit Isiaas Henson MD [facility] 03/24/24 [...] provider and meeting all other requirements ' [facility] 2025-01-27 10:48:21 Daughter Declan is requesting a refill for pt ONDANSETRON 4 mg disintegrating tablet and diphenoxylate-atropine 2.5-0.025 mg tablet and says out of medication. [facility] [place] [facility] 2025-01-13 09:56:55 Called pt to let her know that placer was ready for sweet pickle maker. [facility] 2025-01-13 08:42:54 Please review and advise [facility] 2025-01-12 14:59:47 Yoel Trevino is a 84 year old female Pt daughter called wanting to know if handicap forms for her placard is ready for sweet pickle maker. [place] 2025-01-10 11:44:59 Called pt, they have not received services from this [employer] and do not want the supplies that the [employer] has to offer. Will fax back to [facility], letting them know that pt is declining the supplies. [facility] 2025-01-09 17:52:10 Received In Call Medical Supply orders and have placed in provider's box GATING PUMP OPERATOR Violet Artis [facility] 2025-01-09 11:04:25 Form received and placed in providers basket for review. GATING PUMP OPERATOR Shira Barbosa [facility] 2025-01-07 11:19:07 Yoel Trevino is a 84 year old female DME is calling to know if the DME medical supply forms have been received. They were faxed on jan 04 and refaxed today. fax. [phone] fax. [phone] GATING PUMP OPERATOR Nel Obrien [facility] 2025-01-05 12:36:55 Notes: please review and advise Last Refilled: Disp Refills Start End N[facility] DIPHENOXYLATE-ATROPINE 2.5-0.025 mg tablet 20 tablet 0 05/24/2024 -- No Sig: TAKE 1 TABLET BY MOUTH EVERY 6 (SIX) HOURS NEEDED FOR OTHER (DIARRHEA). Sent to pharmacy as: diphenoxylate-atropine 2.5 mg-0.025 mg tablet (LOMOTIL) Class: eRX Notes to Pharmacy: Not to exceed 5 additional fills before 09/20/2024 DX Code Needed . Route: Oral Order: [id number] Date/Time Signed: 05/24/2024 06:27 E-Prescribing Status: Receipt confirmed by pharmacy (05/24/2024 6:27 AM CDT) Recent Visits Date Type Provider Dept 09/30/24 Office Visit Isaias Henson MD [facility] 06/28/24 Office Visit Isaias Henson MD [facility] [...] authorizing provider and meeting all other requirements [facility] 2024-11-25 13:29:39 Last Refilled: Disp Refills Start End N[facility]OL[facility]S AMLODIPINE 5 mg tablet 90 tablet 0 07/28/2024 -- No Sig: TAKE 1 TABLET BY MOUTH EVERY DAY IN THE MORNING Sent to pharmacy as: amLODIPine 5 mg tablet (NORVASC) Class: eRX Route: Oral Order: [id number] Date/Time Signed: 07/28/2024 06:26 E-Prescribing Status: Receipt confirmed by pharmacy (07/28/2024 6:26 AM CDT) Disp Refills Start End NICOL[facility]S fenofibrate micronized 200 mg capsule 90 capsule 0 09/30/2024 -- -- Sig: Take 1 capsule by mouth daily with breakfast. Sent to pharmacy as: fenofibrate micronized 200 mg capsule (TRICOR) Class: eRX Route: Oral Order: [id number] Date/Time Signed: 09/30/2024 09:23 E-Prescribing Status: Receipt confirmed by pharmacy (09/30/2024 9:23 AM IRRIGATING PUMP OPERATOR) Disp Refills Start End NICOL[facility]S HYDRALAZINE 10 mg tablet 270 tablet 1 05/25/2024 -- No Sig: TAKE 1 TABLET BY MOUTH EVERY 8 HOURS FOR 30 DAYS Sent to pharmacy as: hydrALAZINE 10 mg tablet (APRESOLINE) Class: eRX Order: [id number] Date/Time Signed: 05/25/2024 06:29 E-Prescribing Status: Receipt confirmed by pharmacy (05/25/2024 6:29 AM CDT) Disp Refills Start End NICOL[facility]S metoprolol succinate XL 50 mg 24 hr tablet 90 tablet 0 09/30/2024 -- -- Sig: Take 1 tablet by mouth every morning. Sent to pharmacy as: metoprolol succinate ER 50 mg tablet,extended release 24 hr (TOPROL XL) Class: eRX Route: Oral Order: [id number] Date/Time Signed: 09/30/2024 09:23 E-Prescribing Status: Receipt confirmed by pharmacy (09/30/2024 9:23 AM IRRIGATING PUMP OPERATOR) Disp Refills Start End NICOL[facility]S nystatin 100,000 unit/gram powder 60 g 1 06/28/2024 -- No Sig: Apply to area(s) 2 (two) times daily. Sent to pharmacy as: nystatin 100,000 unit/gram topical powder (NYSTOP) Class: eRX Route: Topical Order: [id number] Date/Time Signed: 06/28/2024 14:31 E-Prescribing Status: Receipt confirmed by pharmacy (06/28/2024 2:32 PM CDT) Disp Refills Start End NICOL[facility]S PAROXETINE 40 mg tablet 90 tablet 0 11/15/2024 -- No Sig: TAKE 1 TABLET BY MOUTH EVERY DAY Sent to pharmacy as: PARoxetine 40 mg tablet (PAXIL) Class: eRX Order: [id number] Date/Time Signed: 11/15/2024 09:30 E-Prescribing Status: Receipt confirmed by pharmacy (11/15/2024 9:30 AM IRRIGATING PUMP OPERATOR) Disp Refills Start End NICOLÁS pravastatin 80 mg tablet 90 tablet 0 09/30/2024 -- -- Sig: Take 1 tablet by mouth at bedtime. Sent to pharmacy as: pravastatin 80 mg tablet (PRAVACHOL) Class: eRX Route: Oral Order: [id number] Date/Time Signed: 09/30/2024 09:23 E-Prescribing Status: Receipt confirmed by pharmacy (09/30/2024 9:23 AM IRRIGATING PUMP OPERATOR) Notes: Recent Visits Date Type Provider Dept 09/30/24 Office Visit Isaias Henson MD [facility] 06/28/24 Office Visit Isaias Henson MD [facility] [...] authorizing provider and meeting all other requirements GATING PUMP OPERATOR Milly Akhtar RN [facility] 2024-11-15 09:29:30 Last Refilled: Disp Refills Start End NICOLÁS PAROXETINE 40 mg tablet 90 tablet 0 12/04/2023 -- No Sig: TAKE 1 TABLET BY MOUTH EVERY DAY Sent to pharmacy as: PARoxetine 40 mg tablet (PAXIL) Class: eRX Order: [id number] Date/Time Signed: 12/04/2023 07:28 E-Prescribing Status: Receipt confirmed by pharmacy (12/04/2023 7:28 AM IRRIGATING PUMP OPERATOR) Notes: Recent Visits Date Type Provider Dept 09/30/24 Office Visit Isaias Henson MD [facility] 06/28/24 Office Visit Isaias Henson MD [facility] [...] authorizing provider and meeting all other requirements GATING PUMP OPERATOR iMlly Akhtar RN [facility] 2024-11-05 13:21:14 Last Refilled: sacubitriL-valsartan (ENTRESTO) 24-26 mg tablet 60 tablet 2 06/28/2024 -- -- Sig: Take 1 tablet by mouth every morning and evening. Sent to pharmacy as: Entresto 24 mg-26 mg tablet (sacubitriL-valsartan) Class: eRX Route: Oral Order: [id number] Date/Time Signed: 06/28/2024 14:31 E-Prescribing Status: Receipt confirmed by pharmacy (06/28/2024 2:32 PM CDT) Recent Visits Date Type Provider Dept 09/30/24 Office Visit Isaias Henson MD [facility] 06/28/24 Office Visit Isaias Henson MD [facility] 03/24/24 Office Visit Isaias Henson MD [facility] 02/18/24 Office Visit Isaias Henson MD [facility] 12/17/23 Office Visit Isaias Henson MD [facility] 08/28/23 Office Visit Isaias Henson MD [facility] 06/11/23 Office Visit Isaias Henson MD [facility] Showing recent visits within past 540 days with a meds authorizing provider and meeting all other requirements Future Appointments No visits were found meeting these conditions. Showing future appointments within next 150 days with a meds authorizing provider and meeting all other requirements [facility] 2024-11-05 12:34:13 Declan the pts daughter is calling asking for a refill of the pts prescription sacubitriL-valsartan (ENTRESTO). The pharamcy does not have anymore refills on file for them. [facility]/pharmacy #[id number] - [facility] [address] [place] [address] [place] [id number] [facility] [place] Mildred Cao [facility] 2024-10-15 07:43:48 Images from the original note were not included. Last Refilled: Disp Refills Start End NICOLÁS ELIQUIS 2.5 mg tablet 60 tablet 2 04/16/2024 -- No Sig: TAKE 1 TABLET BY MOUTH IN THE MORNING AND 1 TABLET IN THE EVENING. INDICATIONS: ATRIAL FIBRILLATION Sent to pharmacy as: Eliquis 2.5 mg tablet (apixaban) Class: eRX Notes to Pharmacy: testing Order: [id number] Date/Time Signed: 04/16/2024 07:12 E-Prescribing Status: Receipt confirmed by pharmacy (04/16/2024 7:13 AM CDT) Notes: Please review and fill if appropriate Anti-coagulants [id number]/15/2024 12:32 AM Protocol Details Cr in normal range and within 360 days RBC in normal range and within 360 days HCT in normal range and within 360 days HGB in normal range and within 360 days Valid encounter within last 12 months PLT in normal range and within 360 days Recent Visits Date Type Provider Dept 09/30/24 Office Visit Isaias Henson MD [facility] 06/28/24 Office Visit Isaias Henson MD [facility] [...] authorizing provider and meeting all other requirements Office Visit on 09/30/2024 Component Date Value POCT U SP GRAV 09/30/2024 1.020 POCT PH U 09/30/2024 5 POCT U LEUK EST 09/30/2024 trace POCT U NIT 09/30/2024 neg POCT U PROT 09/30/2024 trace POCT U GLU 09/30/2024 100 POCT U KETONE 09/30/2024 + POCT U UROBILI 09/30/2024 1 POCT U BILI 09/30/2024 + POCT U BLD 09/30/2024 trace POCT U COLOR 09/30/2024 dark yellow POCT U APPEAR 09/30/2024 hazy URINE CULTURE 09/30/2024 > 100,000 CFU/mL mixed aerobic organisms - suggests endogenous microbial contamination Admission on 09/09/2024, Discharged on 09/09/2024 Component Date Value NA 09/09/2024 135 K 09/09/2024 3.6 CL 09/09/2024 99 CO2 TOTAL 09/09/2024 29 AGAP 09/09/2024 7 BUN 09/09/2024 40 (H) GLUCOSE 09/09/2024 157 (H) CREATININE 09/09/2024 2.39 (H) TOTAL BILI 09/09/2024 1.1 CALCIUM 09/09/2024 9.0 T PROTEIN 09/09/2024 7.1 ALBUMIN 09/09/2024 3.7 ALK PHOS 09/09/2024 69 ALTv 09/09/2024 24 AST(SGOT) 09/09/2024 46 (H) eGFR 09/09/2024 19.4 WBC 09/09/2024 8.62 RBC 09/09/2024 3.03 (L) HGB 09/09/2024 9.7 (L) HCT 09/09/2024 29.5 (L) MCV 09/09/2024 97.4 (H) MCH 09/09/2024 32.0 MCHC 09/09/2024 32.9 RDW-SD 09/09/2024 54.4 (H) RDW-CV 09/09/2024 15.2 PLT 09/09/2024 195 MPV 09/09/2024 11.5 NRBC/100 WBC 09/09/2024 0.0 NRBC x10 3 09/09/2024 <0.01 GRAN MAT (NEUT) % 09/09/2024 63.1 IMM GRAN % 09/09/2024 0.50 LYMPH % 09/09/2024 23.2 MONO % 09/09/2024 10.2 EOS % 09/09/2024 2.3 BASO % 09/09/2024 0.7 GRAN MAT x10 3 (ANC) 09/09/2024 5.44 IMM GRAN x10 3 09/09/2024 0.04 LYMPH x10 3 09/09/2024 2.00 MONO x10 3 09/09/2024 0.88 EOS x10 3 09/09/2024 0.20 BASO x10 3 09/09/2024 0.06 LIPASE 09/09/2024 107 APPEARANCE 09/09/2024 Slightly Cloudy (A) COLOR 09/09/2024 Yellow PH 09/09/2024 5.0 SP GRAVITY 09/09/2024 1.012 GLU U QUAL 09/09/2024 Normal BLOOD 09/09/2024 Negative KETONES 09/09/2024 Negative PROTEIN 09/09/2024 Negative UROBILIN 09/09/2024 2.0 mg/dL (A) BILIRUBIN 09/09/2024 Negative NITRITE 09/09/2024 Negative LEUK ERASMO 09/09/2024 500/uL (A) RBC/HPF 09/09/2024 2 WBC/HPF 09/09/2024 41 (H) BACTERIA 09/09/2024 Moderate (A) MUCOUS 09/09/2024 Slight (A) SQ EPITH 09/09/2024 2 WBC CLUMPS 09/09/2024 6 (H) HYAL CAST 09/09/2024 6 (H) URINE CULTURE 09/09/2024 <10,000 CFU/mL Enterococcus faecalis (A) 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 on 06/28/2024 Component Date Value NA 06/28/2024 140 K 06/28/2024 4.2 CL 06/28/2024 103 CO2 TOTAL 06/28/2024 27 AGAP 06/28/2024 10 BUN 06/28/2024 29 (H) GLUCOSE 06/28/2024 105 CREATININE 06/28/2024 2.15 (H) TOTAL BILI 06/28/2024 0.9 CALCIUM 06/28/2024 8.4 (L) T PROTEIN 06/28/2024 6.9 ALBUMIN 06/28/2024 3.5 ALK PHOS 06/28/2024 76 ALTv 06/28/2024 27 AST(SGOT) 06/28/2024 59 (H) eGFR 06/28/2024 22.1 CHOL 06/28/2024 120 HDL 06/28/2024 18 (L) HDLC RATIO 06/28/2024 6.7 (H) TRIG 06/28/2024 248 (H) LDL CHOL 06/28/2024 52 VLDL 06/28/2024 50 HGB A1C 06/28/2024 5.2 Office Visit on 06/28/2024 Component Date Value WBC 06/28/2024 6.00 RBC 06/28/2024 3.16 (L) HGB 06/28/2024 10.2 (L) HCT 06/28/2024 32.3 (L) MCV 06/28/2024 102.2 (H) MCH 06/28/2024 32.3 MCHC 06/28/2024 31.6 RDW-SD 06/28/2024 55.9 (H) RDW-CV 06/28/2024 14.9 PLT 06/28/2024 206 MPV 06/28/2024 11.9 NRBC/100 WBC 06/28/2024 0.0 NRBC x10 3 06/28/2024 <0.01 GRAN MAT (NEUT) % 06/28/2024 53.1 IMM GRAN % 06/28/2024 0.50 LYMPH % 06/28/2024 31.7 MONO % 06/28/2024 9.8 EOS % 06/28/2024 3.7 BASO % 06/28/2024 1.2 GRAN MAT x10 3 (ANC) 06/28/2024 3.19 IMM GRAN x10 3 06/28/2024 0.03 LYMPH x10 3 06/28/2024 1.90 MONO x10 3 06/28/2024 0.59 EOS x10 3 06/28/2024 0.22 BASO x10 3 06/28/2024 0.07 Admission on 02/11/2024, Discharged on 02/11/2024 Component Date Value WBC 02/11/2024 6.91 RBC 02/11/2024 3.27 (L) HGB 02/11/2024 10.5 (L) HCT 02/11/2024 33.1 (L) MCV 02/11/2024 101.2 (H) MCH 02/11/2024 32.1 MCHC 02/11/2024 31.7 RDW-SD 02/11/2024 55.4 (H) RDW-CV 02/11/2024 14.9 PLT 02/11/2024 229 MPV 02/11/2024 10.8 NRBC/100 WBC 02/11/2024 0.0 NRBC x10 3 02/11/2024 <0.01 GRAN MAT (NEUT) % 02/11/2024 58.9 IMM GRAN % 02/11/2024 1.30 LYMPH % 02/11/2024 27.5 MONO % 02/11/2024 9.6 EOS % 02/11/2024 1.7 BASO % 02/11/2024 1.0 GRAN MAT x10 3 (ANC) 02/11/2024 4.07 IMM GRAN x10 3 02/11/2024 0.09 (H) LYMPH x10 3 02/11/2024 1.90 MONO x10 3 02/11/2024 0.66 EOS x10 3 02/11/2024 0.12 BASO x10 3 02/11/2024 0.07 NA 02/11/2024 143 K 02/11/2024 4.0 CL 02/11/2024 106 CO2 TOTAL 02/11/2024 29 AGAP 02/11/2024 8 BUN 02/11/2024 57 (H) GLUCOSE 02/11/2024 141 (H) CREATININE 02/11/2024 2.53 (H) TOTAL BILI 02/11/2024 0.8 CALCIUM 02/11/2024 8.3 (L) T PROTEIN 02/11/2024 7.6 ALBUMIN 02/11/2024 3.6 ALK PHOS 02/11/2024 69 ALTv 02/11/2024 31 AST(SGOT) 02/11/2024 62 (H) eGFR 02/11/2024 18.3 TROPONIN I 02/11/2024 0.026 LIPASE 02/11/2024 205 LACTIC ACID 02/11/2024 1.44 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 on 10/22/2023 Component Date Value NA 10/22/2023 143 K 10/22/2023 4.3 CL 10/22/2023 105 CO2 TOTAL 10/22/2023 29 AGAP 10/22/2023 9 BUN 10/22/2023 63 (H) GLUCOSE 10/22/2023 92 CREATININE 10/22/2023 2.13 (H) TOTAL BILI 10/22/2023 0.7 CALCIUM 10/22/2023 9.2 T PROTEIN 10/22/2023 7.0 ALBUMIN 10/22/2023 3.6 ALK PHOS 10/22/2023 64 ALTv 10/22/2023 40 (H) AST(SGOT) 10/22/2023 75 (H) eGFR 10/22/2023 22.5 CHOL 10/22/2023 117 (L) HDL 10/22/2023 22 (L) HDLC RATIO 10/22/2023 5.3 (H) TRIG 10/22/2023 181 (H) LDL CHOL 10/22/2023 59 VLDL 10/22/2023 36 HGB A1C 10/22/2023 5.3 GATING PUMP OPERATOR Milly Akhtar RN [facility] 2024-09-30 09:45:00 Gave pt sterile stool collection kit. Jessie Herrera 09/30/2024 9:34 AM GATING PUMP OPERATOR Jessie Herrera [facility] 2024-09-30 09:00:00 Addended by: KEVEN LANDEROS on: 09/30/2024 09:32 AM Modules accepted: Orders [facility] 2024-09-23 10:38:03 Called and spoke to Bre, told her I just received Mrs. Trevino paperwork.They are waiting review from sixto once done I will fax back. [facility] 2024-09-23 08:37:30 Bre Butler from [employer] is calling regards to fax she has sent for Yoel Trevino is a 84 year old female for prescription for durable medical equipment Please advise Bre Butler or [phone] Rashaun Nesbittford [facility] 2024-09-10 15:20:57 Post ED Visit Outreach Call 09/10/2024 Yoel Trevino [id number] Yoel Trevino is a 84 year old /White female was admitted on 09/09/24 to [facility] EM[facility]. She was discharged on 09/09/24 with discharge disposition of HR- Routine Discharge. High ED Utilization (number of ER visits over past 90 days) 1 ED Diagnosis: hallucinations Avoidable ED Visit? no Name of PCP- Dr. Isaias Henson Date of Last Office Visit- 06/28/2024 Are you having any symptoms? no Do you have all of your medications? yes Have you scheduled a follow up appointment with your physician? no Do you need assistance with scheduling a follow up appointment? No. Per pt, "I will do it later" Do you have transportation to your appointment? yes Do you have any questions or concerns? no Interventions: Discuss ED alternatives for avoidable ED (urgent care, PCP appointment). Establish care with [facility] PCP (if no PCP) Confirm follow up visit with established PCP. 4) Consult Ambulatory Er Rn as needed. 5) Communicate with physician's office via phone or in basket message as needed. Jonh Vasquez RN [facility] 2024-09-10 10:18:26 Care Transition CM made f/u call to pt post-discharge. No response and call went to voicemail. CM left a discreet message with purpose of call and CM's call back information. [facility] 2024-09-09 17:42:22 Pt given printed and verbal discharge instructions regarding UTI, encouraged hydration, Prescriptions provided Discussed antibiotic therapy and to take until all completed unless adverse reaction occurs - if occurs, discontinue medication and follow up with pcp/seek medical attention Pt verbalized understanding of instructions, pt awake alert oriented, resp reg unlabored, skin w/d, color appropriate for race, moves all ext well,pt encouraged to follow up with pcp. Advised to seek medical attention for new/prolonged/worsening of symptoms. No adverse reaction to meds given in ER noted upon discharge PIV d'cd, dressing to site, catheter in tact. Awake, alert oriented, resp reg unlabored, skin w/d, pt leaving amb with steady gait, in no apparent distress, Irais Agosto RN [facility] 2024-09-09 15:00:00 Nurse Report Report given to Isabella KUMAR. Chief complaint, assessment findings, and orders reviewed. Plan of care discussed at bedside with patient and both nurses. Patient/family members verbalized understanding. Rebecca Lynch RN Rebecca Lynch RN [facility] 2024-09-09 14:56:31 Order rec'd from ERP to straight cath pt for UA. [facility] 2024-09-09 14:20:49 Assisted pt to bathroom to void via w/c. Pt requires minimal assist. Pt unable to void at this time. While on toilet pt commented on the bugs in the bathroom, no bugs visible to this nurse. Pt states concerned about "white spots on the outside of my skin, and the red spots underneath." States wants to speak to MD about this. Pt denies spots being RT to scattered bruising noted to skin. States spots are "something else." [facility] 2024-09-09 13:50:00 Pt in w/c, family at bedside. During assessment pt states is here "because I keep talking to myself." Pt states "the lines on the floor keep moving." Does admit to feeling dizzy at times. [facility] 2024-09-09 13:29:05 Pt in w/c w/ family member present. Pt eating lunch. Pt and family requests nurse to return for labs/UA/IV placement after pt finishes lunch. Encouraged pt and family to call when done eating. Both agreeable. T [facility] 2024-09-09 13:01:37 Pt arrived via WC with daughter with complaints of audible and visual hallucinations. Pt was just dc'd from [facility] for weakness and hallucinations. Pt denies HI and SI. Caroline Cameron RN [facility] 2024-09-09 11:42:15 Spoke with Declan, Patients Daughter, She reports that the patient is having sever hallucinations. Patient was recently in the hospital at [facility] due to "swelling" per daughter. She reports that while in the hospital they wanted to do an MRI but decided against it due to the patient kidney function. I advised her to take her to the ED to be evaluated. She voiced understanding. Milly Akhtar RN [facility] 2024-09-09 11:30:55 Daughter Declan is not with pt and states she is hallucinating and lives 20 min away from pt and sister Ann right across the house but states does not want to call her due her being awful with pt. Daughter wants to know what to do for pt. Ruby Carbone Family Nurse took call to assist daughter Declan. Humaira Andres [facility] 2024-08-23 11:21:40 Images from the original note [...] Henson MD Last refill: 05/10/2024 Rx #: [id number] Anti-nausea Wtjpfj2908/21/2024 12:59 PM Protocol Details This refill cannot be delegated Manual Review: Women's Health providers only allowed to refill requests. Valid encounter within last 12 months To be filled at: [id number] Recent Visits Date Type Provider Dept [...] meeting all other requirements Brigitte Barbosa MA [facility] 2024-07-27 14:59:32 Notes: please review and advise Last Refilled: amLODIPine 5 mg tablet 90 tablet 0 12/17/2023 -- -- Sig: Take 1 tablet by mouth in the morning. Sent to pharmacy as: amLODIPine 5 mg tablet (NORVASC) Class: eRX Route: Oral Order: [id number] Date/Time Signed: 12/17/2023 12:46 E-Prescribing Status: Receipt confirmed by pharmacy (12/17/2023 12:46 PM IRRIGATING PUMP OPERATOR) Recent Visits Date Type Provider Dept 06/28/24 Office Visit Isaias Henson MD [facility] 03/24/24 Office Visit Isaias Henson MD [facility] 02/18/24 Office Visit Isaias Henson MD [facility] 12/17/23 Office Visit Isaias Henson MD [facility] 08/28/23 Office Visit Isaias Henson MD [facility] 06/11/23 Office Visit Isaias Henson MD [facility] 03/05/23 Office Visit Isaias Henson MD [facility] Showing recent visits within past 540 days with a meds authorizing provider and meeting all other requirements Future Appointments No visits were found meeting these conditions. Showing future appointments within next 150 days with a meds authorizing provider and meeting all other requirements [facility] 2024-06-28 15:00:00 Images from the original note were not included. Venipuncture collection performed by clean technique on the right anticubitus. Total of 2 attempts were made. Slight pressure and a bandage/dressing were applied to the site(s). The patient experienced no complications. The following specimens were processed according to instructions and sent to [facility] laboratories per lab order on 06/28/2024: LT BLUE SST 1 RED LAV 2 PPT DK GREEN (LiHep) DK GREEN (SodH) VENEGAS DK BLUE (K2) DK BLUE (S) ACD Blood Culture NIPT/NTD Cheyanne Jordan [facility] 2024-06-28 13:06:09 Last Refilled: Disp Refills Start End NICOLÁS pantoprazole 40 mg EC tablet 90 tablet 1 12/17/2023 -- -- Sig: Take 1 tablet by mouth every morning. Sent to pharmacy as: pantoprazole 40 mg tablet,delayed release (PROTONIX) Class: eRX Route: Oral Order: [id number] Date/Time Signed: 12/17/2023 12:46 E-Prescribing Status: Receipt confirmed by pharmacy (12/17/2023 12:46 PM IRRIGATING PUMP OPERATOR) Notes: Recent Visits Date Type Provider Dept [...] meeting all other requirements Milly Akhtar RN [facility] 2024-05-24 16:39:48 Images from the original note [...] Henson MD Last refill: 05/04/2024 Rx #: [id number] Cardiovascular: Vasodilators [id number]/24/2024 02:22 PM Protocol Details Cr in normal [...] Henson MD Last refill: 05/04/2024 Rx #: [id number] Cardiovascular: Beta Blockers Pxgogz2305/24/2024 02:22 PM Protocol Details Valid encounter within [...] Henson MD Last refill: 05/18/2024 Rx #: [id number] Cardiovascular: Loop Diuretics Leehsb5705/24/2024 02:22 PM Protocol Details Cr in normal range and within 180 days Valid encounter within last 12 months K in normal range and within 180 days To be filled at: [facility]/pharmacy #[id number] CREATININE Date Value 02/11/2024 2.53 mg/dL [...] authorizing provider and meeting all other requirements [facility] 2024-05-20 16:55:25 Recent Visits Date Type Provider [...] mg-0.025 mg tablet (LOMOTIL) Yoel Ho MA [facility] 2024-05-10 08:01:22 Last Refilled: ondansetron 4 mg disintegrating tablet 30 tablet 0 02/18/2024 -- No Sig: Take 1 tablet by mouth every 8 (eight) hours as needed for Nausea and Vomiting (N/V). Sent to pharmacy as: ondansetron 4 mg disintegrating tablet (ZOFRAN-ODT) Class: eRX Route: Oral Order: [id number] Date/Time Signed: 02/18/2024 13:48 E-Prescribing Status: Receipt [...] authorizing provider and meeting all other requirements [facility] 2024-04-28 10:50:05 Received client coordination report. Placed in the providers box. Skylar Ryan [facility] 2024-04-16 07:11:34 Last Refilled: Disp Refills Start End NICOLÁS apixaban (ELIQUIS) 2.5 mg tablet 60 tablet 2 12/17/2023 -- No Sig: Take 1 tablet by mouth in the morning and 1 tablet in the evening. Indications: atrial fibrillation Sent to pharmacy as: apixaban 2.5 mg tablet (Eliquis) Class: eRX Notes to Pharmacy: testing Route: Oral Order: [id number] Date/Time Signed: 12/17/2023 12:46 E-Prescribing Status: Receipt confirmed by pharmacy (12/17/2023 12:46 PM IRRIGATING PUMP OPERATOR) Recent Visits Date Type Provider Dept 03/24/24 [...] authorizing provider and meeting all other requirements [facility] 2024-03-24 13:15:00 Addended by: ISAIAS HENSON MD on: 03/24/2024 01:31 PM Modules accepted: Orders [facility] 2024-03-23 15:10:51 Spoke to DOP Mrs. Mcmillan and scheduled patient appt for possible ear infections on 03/24/24 at 1:15pm She verbalized understanding. [facility] 2024-03-23 15:05:23 Copied from [facility] #[id number]. Topic: Clinical - Medical Advice >> Mar 23, 2024 3:04 PM Patient Manager Video Games wrote: Yoel Trevino is a 83 year old female is calling with her daughter.pt daughter states that the pt had an ear infection and it was not called in.states the pt pain and clogged Arely Salcedo 03/23/24 3:05 PM Arely Pope Matias [facility] 2024-03-21 10:15:22 Last refill was Disp Refills Start End NICOLÁS diphenoxylate-atropine 2.5-0.025 mg tablet 20 tablet 0 02/18/2024 -- No Sig: Take 1 tablet by mouth every 6 (six) hours as needed for Other (diarrhea). Sent to pharmacy as: diphenoxylate-atropine 2.5 mg-0.025 mg tablet (LOMOTIL) Class: eRX Recent Visits Date Type Provider Dept 02/18/24 Office Visit Isaias Henson MD [facility] [...] all other requirements ' Yoel Ho MA [facility] 2024-02-12 15:41:43 Summary: ER Outreach Care Transition CM attempted to reach patient via telephone x2. No response and voicemail is full. Unable to leave message. Miriam Jain RN, BSN [facility] [place] [phone] Miriam Jain RN [facility] 2024-02-12 08:51:04 Summary: ER Outreach Care Transition CM attempted to reach patient via telephone. No response and voicemail is full. Unable to leave message. Miriam Jain RN, BSN [facility] [place] [phone] T [facility] 2024-02-11 16:57:26 Pt given printed and verbal [...] in no apparent distress, Dee Russ RN [facility] 2024-02-11 16:22:15 Patient refused straight catheter. [facility] 2024-02-11 14:19:41 Patient here with daughter for diarrhea and vomiting on and off for about 3 weeks. Patient lives alone and uses a rollator to get from her room to her bathroom. Daughter states she gave the patient one of her own Zofran ODT this morning and patient reports that it helped "a lot". Luis Brar RN [facility] 2024-02-11 13:28:36 Spoke to Robb Medina and [...] understanding. Antonia Figueroa LVN 02/11/2024 1:34 PM [facility] 2024-02-11 13:12:09 Yoel Trevino is a 83 [...] on approval from Dr. Henson Please advise [phone] Declanfaith Medina (daughter) Saira Murrell [facility] 2024-02-05 15:49:09 Contacted DOP Robb Medina and advised her per Dr. Henson the patient needs to be evaluated in clinic. They were wanting first available. It was scheduled for Fri02/11/24 at 145 pm. Advised to us Urgent Care if s/s worsen. She verbalized understanding [facility] 2024-02-05 15:37:42 Needs to be evaluated [facility] 2024-02-05 10:44:06 Daughter of patient is returning call from the clinic. Please call back [phone] Triston Serra [facility] 2024-02-05 08:38:32 2nd ATC-LVM to callback Laurel Richardson LVN 02/05/2024 Laurel Richardson LVN [facility] 2024-02-04 16:38:38 Attempted to contact patient. No answer. Left message to call back. Antonia Figueroa LVN 02/04/2024 4:38 PM [facility] 2024-02-04 16:13:53 Copied from [facility] #[id number]. Topic: Clinical - Medical Advice >> Feb 04, 2024 4:11 PM Patient Manager Video [employer] wrote: Yoel Trevino is a 83 year old female Pt daughter Robb Medina (Daughter) is calling to report pt symptoms of diarrhea, vomiting, and nausea for 2 weeks. Robb states that she is requesting a call back for medical advice for a possible prscription to relieve her symptoms of upset stomach. Please advise. P: Renita Bonilla [facility] 2023-11-13 15:40:40 Images from the original note were not included. Last Refilled: 09/10/23, 09/22/23 Notes: [facility]/pharmacy #[id number] - [address] Recent Visits Date Type Provider Dept 08/28/23 Office Visit Isaias Henson MD [facility] 06/11/23 Office Visit Isaias Henson MD [facility] 03/05/23 Office Visit Isaias Henson MD [facility] 01/08/23 Office Visit Isaias [...] Henson MD Last refill: 09/10/2023 Rx #: [id number] Cardiovascular: Beta Blockers Gklxog3811/13/2023 02:52 PM Protocol Details Valid encounter within [...] Henson MD Last refill: 09/22/2023 Rx #: [id number] Calcium Channel Blockers Usywfq4711/13/2023 02:52 PM Protocol Details Valid encounter within last 12 months To be filled at: [facility]/pharmacy #[id number] - [address] GATING PUMP OPERATOR [facility] 2023-08-12 16:05:20 Formatting of this n ote might be different from the original. Called and spoke with the daughter advised Sxito is out of the office until next week if possible should sweet pickle maker at [facility] Yoel Ho MA [facility] 2023-08-12 14:26:30 Formatting of this n ote might be different from the original. Pt daughter calling to get a prescription sent to a different pharmacy[facility] [place] HYDROcodone-acetaminophen 5-325 mg tablet Jazmín Giron [facility] 2023-08-07 14:32:14 Formatting of this n ote is different from the original. Images from the original note were not included. Last Refilled: 07/07/23 Notes: [facility]/pharmacy #[id number] - [address] Recent Visits Date Type Provider Dept [...] Last ordered: 1 month ago (07/07/2023) by Isaias Henson MD Controlled Substance Failed 08/07/2023 02:13 PM Protocol Details Valid encounter within last 3 months This refill cannot be delegated Pain agreement on file To be filled at: [facility]/pharmacy #[id number] [facility] 2023-07-08 09:48:44 Formatting of this n ote might be different from the original. Home Health Certification and POC approved and ready for provider signature in [facility]. Certification period: 07/03/23-08/31/23 Please review and sign if appropriate. T Herminia Salinas RN [facility] 2023-07-07 08:52:38 Formatting of this n ote [...] meeting all other requirements Herminia Salinas RN [facility] 2023-06-16 12:27:30 Formatting of this n ote might be different from the original. Pt dropped off med list, Placed in provider basket Skylar Jorgensen [facility] 2022-10-16 16:10:45 Patient has called to request refill for Trospium, attempted to contact patient to inform her that follow up with provider is necessary for refill. No answer, left voicemail requesting return call. [facility]
[2025-06-22 16:31] VITALS: BMI 23.5
[2025-06-22] MEDS: SUCRALFATE 1 GM TABLET PO SCH (17:01)
[2025-06-22] MEDS: APIXABAN 2.5 MG TABLET PO SCH (19:40)
[2025-06-23] MEDS ORDERED: MELATONIN 3 MG TABLET PO PRN (00:58)
[2025-06-23] MEDS ORDERED: DOCUSATE NA/SENNA CONC 1 TAB PO PRN (00:58)
[2025-06-23] MEDS ORDERED: ACETAMINOPHEN 500 MG TAB PO PRN (01:01)
[2025-06-23 05:12] LABS: Absolute Lymphocytes (CBC) 2.0 K/uL (0.7-4.9); Hematocrit 27.8 % (36.0-45.0); Hemoglobin 9.7 g/dL (12.0-15.0); MCH 32.9 pg (27.0-35.0); MCHC 34.9 g/dL (32.0-36.0); MCV 94.0 fL (80-100); MPV 9.1 fL (7.6-11.3); Nucleated RBC Absolute Count 0.0 (0-0); Nucleated Red Blood Cells % 0.1 % (0-0); RBC Red Blood Cell Count 2.96 M/uL (3.86-4.86); White Blood Count 5.70 thou/uL (4.3-10.9)
[2025-06-23 05:32] LABS: Albumin 2.6 g/dL (3.4-5.0); Anion Gap 7.0 mEq/L (5.0-15.0); BUN Blood Urea Nitrogen 64.0 mg/dL (7-18); Glucose Level 104.0 mg/dL (74-106); NT PRO-BNP 1479.0 pg/mL (<450); Potassium 4.0 mEq/L (3.5-5.1); Prealbumin 17.4 mg/dL (20-40)
[2025-06-23 05:33] LABS: Magnesium 0.9 mg/dL (1.6-2.4)
[2025-06-23] MEDS: Magnesium Sulfate 2gm IVPB 2 G/50 ML BAG IV ONE (06:05)
[2025-06-23] MEDS: PANTOPRAZOLE 40MG TABLET PO SCH (06:28)
[2025-06-23] MEDS: SACUBITRIL/VALSARTAN 24/26 MG TAB PO SCH (07:26)
[2025-06-23] MEDS: FUROSEMIDE 40 MG TABLET PO SCH (07:26)
[2025-06-23] MEDS: LACTOBACILLUS/ACIDOPHILUS TAB PO SCH (07:27)
[2025-06-23] MEDS: AMLODIPINE 5 MG TAB PO SCH (07:27)
[2025-06-23] MEDS: METOPROLOL XL 50 MG TAB PO SCH (07:27)
[2025-06-23] MEDS: FENOFIBRATE MICRONIZED 200 MG PO SCH (08:00)
[2025-06-23] MEDS: RIVASTIGMINE 4.6 MG/24 HR PATCH TD SCH (08:00)
[2025-06-23] MEDS: ACETAMINOPHEN 325 MG TABLET PO PRN (09:04)
[2025-06-23 11:43] LABS: Urine Microscopic Reflex YN NO UMIC
[2025-06-23] MEDS ORDERED: NA CHLORIDE 0.9% 250 ML ONE (20:29)
[2025-06-23] MEDS: MAGNESIUM SULFATE 1 gm IVPB 1 GM/100 ML BAG IV ONE (20:30)
[2025-06-23] MEDS: ATORVASTATIN 10 MG TAB PO SCH (21:13)
--- NOTE | 2025-06-24 02:13 | HP ---
Date of Admission: 06/22/2025 Time Of Service: 1:10 p.m. Chief Complaint: She is debilitated, has abdominal pain, and has infections and need to be treated. History Of Present Illness: Ms. Padron is an 85-year-old patient, who resides in an apartment with he r daughter, is previously independent in her living environment managing her basic activities of marina y living including toileting, preparing meals, and managing all medications. She has been receiving Home Health Services intermittently for abdominal pain and physical therapy noticed she had progressi ve worsening strength and poor tolerance and was therefore felt to be someone who could benefit from a higher level of care such as inpatient rehabilitation. However, subsequent to that, she had increa sed chest pain and abnormal vital signs. She was evaluated by the Emergency Medical Services and alexa oneill transported to the emergency department. She was admitted for evaluation for chest pain incl uding cardiac workup, which revealed chronic diastolic congestive heart failure, atrial fibrillation, hypertension, dyslipidemia. She received telemetry monitoring. Cardiac consultation evaluation. S he received Eliquis for DVT prophylaxis. She had insulin for sliding scale for glucose management. Her hospital course is complicated by worsening weakness, decreased functioning, decreased mobility, and debility. She requires moderate to maximal assistance for all mobilization, activities of daily living, and to manage her comorbid conditions. Since she has significant decline from her baseline l evel of functioning, she is appropriate for aggressive inpatient rehabilitation for her to return to her prior level of functioning and reduce risk of rehospitalization. She is very willing and able an d enthusiastic with help of her daughter to do therapy and again will reduce risk of rehospitalizatio n. Past Medical History: Hypertension, diabetes mellitus type 2, coronary artery disease, dyslipidemia, gastroesophageal reflux disease, depression, chronic diastolic congestive heart failure. She has at rial fibrillation. Past Surgical History: Eye surgery, cholecystectomy, partial hysterectomy, pacemaker placement. Allergies: NO KNOWN DRUG ALLERGIES. Current Medications: Tylenol 650 mg every 4 hours as needed, Quinlan 5/325 every 6 hours, Norvasc 5 mg daily, Eliquis 2.5 mg twice daily, Lipitor 10 mg at bedtime, Coreg 12.5 mg twice daily, Lasix 80 mg every 48 hours, she has Lactinex probiotics twice daily, milk of mag 30 mL daily as needed for consti pation, melatonin 3 mg for insomnia at night, Toprol XL 30 mg daily, Zofran 4 mg every 6 hours as nee ded, Protonix 40 mg daily for GE reflux, Paxil 20 mg daily for depression, Ensure Enlive 330 mL every 4 hours poor nutrition. She has an Exelon patch 4.6 mg patch daily for dementia, Senokot-S 2 tablet s at bedtime for stool softening, and Carafate for GE related issues as 1 g daily. Laboratory Studies: White blood cell count 5.7, hemoglobin 7.9, her platelets 177. Sodium 142, pota ssium 4.0, chloride 108, carbon dioxide 31, BUN 64, creatinine 1.43, glucose 104, hemoglobin A1c is n ormal at 4.5, calcium 8.8, magnesium 1.8, it was initially 0.9, and she received replacement, now 1.8 , albumin 2.6, prealbumin 17.4, and beta-natriuretic peptide 1479. Urinalysis done on 06/23/2025 com pletely normal. X-ray Imaging: She had a chest x-ray on 06/21/2025. This study showed no acute abnormalities. Abdo men and pelvis CT scan on 06/21/2025 shows mildly distended bowel with stool, moderate amount through out the colon. There is apparent thickening of the wall of the distal stomach, could be secondary to incomplete distention or inflammation. There is prominent biliary tree which can be a normal findin g in elderly patient, status post cholecystectomy. However, pathologic findings such as stricture or stone could also result in this appearance as the radiologist have noted. Family History: Noncontributory. Social History: Lives with daughter close by. No alcohol, tobacco, or IV drug use. Family History: Noncontributory. Review of Systems: No significant pain, mild myalgias, arthralgias, some abdominal issues, discomfort, and GI related pr oblems. Otherwise, she does have some mid chest pain that was evaluated. Chest pain was ruled out f or myocardial infarction. She will have medications adjusted. She said she at 1 point did not like gabapentin, may be willing to try that again, and she has some lower level narcotic medications as no seth and mostly related to GE type reflux symptoms. Current Level Of Functioning: Currently, she is at a setup assistance level for eating, supervision for grooming, maximum assistance for bathing, moderate assistance for upper and lower body dressing a long with donning and doffing footwear, toileting maximum assistance. Transferring from bed, chair, wheelchair, maximal assistance, to actually perform toileting itself also maximum assistance required . Physical Examination: Vital Signs: Blood pressure is 178/73, pulse 70, respiratory rate 16, temperature 98.0-oral, oxygen saturation 97%. Weight 137 pounds, height 5 feet 4 inches, BMI 23.5. General: Ms. Padron is sitting in a chair beside bed. Daughter was also at the bedside. Again, she does complain of some mild sternal pain. Pain actually is epigastric and rising up and again that galvin s been addressed. HEENT: She is otherwise normocephalic, atraumatic. Sclerae anicteric. Oropharynx pink and moist. Neck: Supple. Chest: Clear. Extremities: No significant clubbing, cyanosis, or edema. Neurologic: She has no focal deficits in upper and lower extremity. Diffuse weakness noted. Rehab And Medical Assessment And Plan: Ms. Padron is an 85-year-old patient, admitted to the [facility] with impairment category 14, cardiac. Impairment group code is 09, cardiac. E tiologic diagnosis, chronic diastolic congestive heart failure. Her comorbid conditions include decr eased mobility, decreased physical functioning, hypertension, diabetes mellitus type 2, coronary diana ry disease as noted, dyslipidemia, gastroesophageal reflux disease with some chest discomfort, depres cayetano. In terms of plan, she will have physical, occupational, and if need be speech therapy for 3.5 hours, 5 of 7 days. She does have a list of comorbid conditions which have been noted and medication s also noted, those will be continued. She will have Eliquis 2.5 mg twice daily for DVT prophylaxis, Lipitor for dyslipidemia, Coreg for heart rate and blood pressure control, Quinlan for pain along with Tylenol, Lasix for fluid management. She has Lactinex probiotics for immune system function, melato krystyna for insomnia, Toprol for heart rate control, Protonix for GE reflux, Paxil for depression, Ensure Enlive for poor nutrition. For her dementia, cognitive impairment, she will have the Exelon patch, Senokot for constipation, and Carafate for the issues of GE reflux. Comorbidities That Are Impacting Rehabilitation: For gastrointestinal issues of course on top of her cardiovascular issues, wants to be closely monitored and medication adjustments made such as chest x -ray, KUB x-ray, blood work, and if need be, pulmonary embolus may have to be ruled out with CT scan of the chest or a CT perfusion study. Rehab Specific Plan: Ms. Padron will have physical, occupational, again if need be speech therapy 3.5 hours, 5 of 7 days, to improve her ability to transfer from bed to chair to wheelchair, to mobilize around the unit of 250 feet, to go on and off the toilet, in and out of the shower, to dress upper an d lower body, donning and doffing footwear, and manage her activities of daily living. Also speech t o help with cognition, thinking, processing, safety awareness, and of course any swallowing issues to o. Ms. Padron and her daughter have a good understanding of the process of admission to the inpatient [facility] unit and how she will benefit from physical, occupational, and if need be speech therapy. She will have 24 hours a day, 7 days a week skilled rehabilitation and nursing, daily physician nicho luation and management, and social problems specialist evaluation and management for discharge planning, home eq uipment, and to continue therapy after discharge. If need be, Hospitalist Service will be consulted. Barriers To Discharge: Given the potential for cardiac and GI issues, she may have an extended stay in inpatient rehabilitation, maybe beyond what the insurance will allow and therefore residential may have to be considered. However, the goal will be for her to go home. Length Of Stay: About 10 to 12 days. Disposition: Expected to be back home with family and continue therapy via Home Health. Prognosis: Good. Code Status: Full code. Rehab Specific Goals: 1. Become independent with upper and lower body dressing and donning and doffing footwear. 2. Independently mobilize a wheelchair 250 feet. 3. Independently ambulate with a rolling walker 250 feet. 4. Independently go up and down 10 steps with bilateral handrails. 5. Independently perform all cognitive functioning with independence and again ADLs to be performed w ith independence. The above goals were reviewed with Ms. Padron and daughter, they were in agreement. By signing this document, I acknowledge I performed a full physical examination on Ms. Padron no later than 24 hours after her admission to the rehabilitation unit and determined that she is able to tole rate the above course of treatment at an intensive level for a reasonable period of time. A detailed individualized plan of care for her will be completed by hospital day 4 based on the preadmission sc reen, history and physical, and therapy evaluations. BERNADETTE Voice ID: [id number]
[2025-06-24 06:13] LABS: Anion Gap 7.6 mEq/L (5.0-15.0); BUN Blood Urea Nitrogen 62.0 mg/dL (7-18); Glucose Level 109.0 mg/dL (74-106); Magnesium 1.9 mg/dL (1.6-2.4); Potassium 3.6 mEq/L (3.5-5.1)
[2025-06-24] MEDS: ENSURE MAX PROTEIN 330 ML LIQUID PO SCH (08:00)
--- NOTE | 2025-06-24 13:56 | P.RH.PN ---
Estimated Length of Stay: 14 Expected Discharge Date: 07/02/25 Discharge Disposition Plan: Home Family Support: Yes Halfway Goal: Mobility, Transfers, Self Care Vital Signs: Last Vital Signs Temp 97.7 F 06/24/25 07:00 Pulse 64 06/24/25 08:55 Resp 17 06/24/25 07:00 BP 108/53 L 06/24/25 08:55 Pulse Ox 96 06/24/25 07:00 Laboratory: Laboratory Last Values WBC 5.70 thou/uL (4.3-10.9) 06/23/25 05:01 RBC 2.96 M/uL (3.86-4.86) L 06/23/25 05:01 Hgb 9.7 g/dL (12.0-15.0) L 06/23/25 05:01 Hct 27.8 % (36.0-45.0) L 06/23/25 05:01 MCV 94.0 fL (80-100) 06/23/25 05:01 MCH 32.9 pg (27.0-35.0) 06/23/25 05:01 MCHC 34.9 g/dL (32.0-36.0) 06/23/25 05:01 RDW 16.0 % (12.1-15.2) H 06/23/25 05:01 Plt Count 177 thou/uL (152-406) 06/23/25 05:01 MPV 9.1 fL (7.6-11.3) 06/23/25 05:01 Neutrophils % 53.4 % (41.7-73.7) 06/23/25 05:01 Lymphocytes % 34.7 % (15.3-44.8) 06/23/25 05:01 Monocytes % 8.6 % (3.3-12.3) 06/23/25 05:01 Eosinophils % 2.7 % (0-4.4) 06/23/25 05:01 Basophils % 0.6 % (0-1.3) 06/23/25 05:01 Absolute Neutrophils 3.0 K/uL (1.8-8.0) 06/23/25 05:01 Absolute Lymphocytes 2.0 K/uL (0.7-4.9) 06/23/25 05:01 Absolute Monocytes 0.5 K/uL (0.1-1.3) 06/23/25 05:01 Absolute Eosinophils 0.2 K/uL (0-0.5) 06/23/25 05:01 Absolute Basophils 0.0 K/uL (0-0.5) 06/23/25 05:01 Sodium 139 mEq/L (136-145) 06/24/25 05:40 Potassium 3.6 mEq/L (3.5-5.1) 06/24/25 05:40 Chloride 107 mEq/L (98-107) 06/24/25 05:40 Carbon Dioxide 28 mEq/L (21-32) 06/24/25 05:40 Anion Gap 7.6 mEq/L (5.0-15.0) 06/24/25 05:40 BUN 62 mg/dL (7-18) H 06/24/25 05:40 Creatinine 1.64 mg/dL (0.55-1.02) H 06/24/25 05:40 Est GFR (CKD-EPI) 30 ml/min (=/>90) L 06/24/25 05:40 Glucose 109 mg/dL (74-106) H 06/24/25 05:40 Hemoglobin A1c 4.5 % (4.2-6.3) 06/23/25 05:01 Calcium 8.6 mg/dL (8.5-10.1) 06/24/25 05:40 Magnesium 1.9 mg/dL (1.6-2.4) 06/24/25 05:40 NT-Pro-B Natriuret Pep 1479 pg/mL (<450) H 06/23/25 05:01 Albumin 2.6 g/dL (3.4-5.0) L 06/23/25 05:01 Prealbumin 17.4 mg/dL (20-40) L 06/23/25 05:01 Urine Color Light-yellow (Yellow) 06/23/25 11:25 Urine Clarity Clear (Clear) 06/23/25 11:25 Urine pH 5.5 (5.0-7.0) 06/23/25 11:25 Ur Specific [place] 1.015 (1.005-1.030) 06/23/25 11:25 Glucose (UA)(Auto) Negative (Negative) 06/23/25 11:25 Urine Ketones Negative (Negative) 06/23/25 11:25 Urine Blood Negative (Negative) 06/23/25 11:25 Urine Nitrite Negative (Negative) 06/23/25 11:25 Urine Bilirubin Negative (Negative) 06/23/25 11:25 Urine Urobilinogen Normal (Normal) 06/23/25 11:25 Ur Leukocyte Esterase Negative Cyrus/uL (Negative) 06/23/25 11:25 Urine Total Protein Negative (Negative) 06/23/25 11:25 Weight: 137 lb Wound Present: No Closed Surgical Incision Present: No Negative Pressure Wound Therapy Present: No Physician Update: Labs reviewed and are stable. Pain is managed. DVT risk is mitigated. SLUMS 10, poor short term memory, poor organizational thinking. BIMS 14. Mod assist bed mobility. Mod to max for transfers and RW 15' with max assist to stand. Max assist one stair. WC 50' at a time. She was mod assist in the shower. Supervision dressing upper and dependent for lower body dressing. SBP dropped to 97 without dizziness. Will change lasix to 20 mg daily form 80 mg q48 hours. Comment: sang heel - blanchable - protectors; sacrum - blanchable - foam protection Summary: Patient's care plan and tank terminal gauger goals have been reviewed and revised as necessary. Please see the Rehabilitation Signature page for all necessary signatures.
[2025-06-24] MEDS: HYDROCODONE/APAP 5/325 MG TAB PO PRN (15:28)
[2025-06-24] MEDS: AMLODIPINE 5 MG TAB PO SCH (20:00)
[2025-06-24] MEDS: MAGNESIUM OXIDE 400 MG TAB PO SCH (20:05)
[2025-06-25] MEDS: MIDODRINE HCL 5 MG TABLET PO SCH (07:46)
[2025-06-25] MEDS: FUROSEMIDE 40 MG TABLET PO SCH (07:49)
[2025-06-25] MEDS: ONDANSETRON 4 MG (ODT) TAB PO PRN (14:23)
--- NOTE | 2025-06-26 08:56 | RAD REPORT ---
EXAMINATION: ONE VIEW CHEST XR CLINICAL INDICATION: Female, 85 years old.,hx of chf TECHNIQUE: Frontal chest projection is submitted. Examination is limited by patient positioning and t echnique. COMPARISON: 06/21/2025. FINDINGS: The lungs are grossly clear although suboptimal inspiratory effort somewhat limits evaluation. No pn eumothorax or sizable effusion. The heart is normal in size. Mediastinal contours are unremarkable. Left chest wall pacer in place. IMPRESSION: No acute intrathoracic abnormalities.
[2025-06-26] MEDS: MELATONIN 3 MG TABLET PO SCH (22:03)
[2025-06-27] MEDS: MELATONIN 3 MG TABLET PO PRN (19:55)
[2025-06-28] MEDS: CYANOCOBALAMIN 1,000 MCG TAB PO SCH (08:08)
[2025-06-28] MEDS: FERROUS SULFATE 325 MG TAB PO SCH (08:09)
[2025-06-28] MEDS: LOPERAMIDE HCL 2 MG CAPSULE PO PRN (11:21)
--- NOTE | 2025-06-29 01:57 | PN ---
Date of Progress Note: 06/28/2025 Time Of Service: 1:15. Subjective: Ms. Padron is making fair progress overall, has no new complaints, and is having no signi ficant shortness of breath. She did have her incentive spirometry which was behind her, although she says she does use it on a regular basis. She was encouraged that will be very helpful in improving her cardiovascular functioning, reducing risk of aspiration pneumonia, and pulmonary edema given her CHF. Objective: No fevers, chills, nausea, vomiting. No significant myalgias, arthralgias, or rash. Sti ll has diffuse weakness. Physical Examination: Vital Signs: Blood pressure 122/56, pulse 69, respiratory rate 18, temperature 98.4, oxygen saturati on 100%. General: Ms. Padron is in a chair in between therapy sessions. HEENT: She does appear normocephalic, atraumatic. Sclerae anicteric. Oropharynx pink, moist. Neck: Supple. Chest: Clear. Abdomen: Soft. Extremities: Show no significant clubbing, cyanosis, or edema. Imaging: Chest x-ray was done on 06/26/2025, the study showed no acute intrathoracic abnormalities. Laboratory Studies: From 06/23, white blood cell count 5.7, hemoglobin 9.7, platelets 177. Sodium 1 39, potassium 3.6, chloride 107, carbon dioxide 28, BUN 62, creatinine 1.64, glucose 109, calcium 8.6 , magnesium 1.9, albumin 2.6, prealbumin 17.4. Urinalysis from the completely normal. Cultures not done. Progress Made With Physical, Occupational, And Speech Therapy: With physical therapy, she completed bed mobility with moderate assistance, multiple osj-nl-pasjw transfers, maximum assistance. She did mobilize a wheelchair 100 feet 3 times with minimum to moderate assistance. She did have an episode of drop in blood pressure, where she dropped from 119/62 with heart rate of 67 to 99/51 with heart ra te of 72, oxygen saturation did remain 99% on room air. With her occupational therapy, maximum magen tance for yte-po-xcidw transfers and edge of bed transfers, dependent for sit to supine transfers. W ith speech, recalled 3 of 3 unrelated items after 5-minute delay with minimal assistance. She mainta ined sustained attention for given task for 3 minutes with 70% accuracy and needed moderate assistanc e. Working memory for 3 units of information was at 89% accuracy level with minimum assistance. Div ergent and convergent naming task done with 80% accuracy and minimum assistance. Assessment And Plan: Ms. Padron is an 85-year-old patient in rehabilitation unit with chronic diastol ic congestive heart failure, from which she is doing very well. She still has significant decreased mobility, decreased physical functioning, hypertension, dyslipidemia, and issues of loose stools, she has Imodium that was helpful. She did have some loose stools earlier, difficulty with sleeping addr essed with melatonin. She has orthostatic hypotension. Midodrine is in place 5 mg in the morning. She does have Zofran for nausea, Protonix for reflux. For cognitive issues, she has rivastigmine 4.6 mg daily patch. In terms of the other parts of her plan, she will continue with physical, occupatio nal, and speech therapy 3.5 hours, 5 of 7 days. Comorbidities That Are Impacting Rehabilitation: Currently, the mild cognitive impairments, she is w orking on that with speech. Loose stools, she has Imodium for that and she has probiotics on board a s well. TRUDY/MODL Voice ID: [id number] Report ID: [id number]
[2025-06-29] MEDS: LIDOCAINE 4% PATCH TOP SCH (08:17)
[2025-06-29] MEDS: MIDODRINE HCL 5 MG TABLET PO SCH (16:15)
--- NOTE | 2025-06-30 02:02 | PN ---
Date of Progress Note: 06/29/2025 Subjective: Ms. Padron is doing well, does have oxygen via nasal cannula. She has had episodes, wher e oxygen saturation may drop down with mobilization. Encouraged to use incentive spirometry and is m aking fair progress overall. Objective: No fevers, chills, nausea, vomiting, myalgias, arthralgias, shortness of breath with exer tion. Physical Examination: Vital Signs: Blood pressure 122/65, pulse 71, respiratory rate 17, temperature 97.2, oxygen saturati on 99%. Weight 137 pounds, height 5 feet 4 inches, BMI 23.5. General: Ms. Padron is resting well in between therapy sessions. HEENT: Appears normocephalic, atraumatic. Lungs: Good air movement. Abdomen: Soft. Extremities: No significant edema. Cyanosis is mild in the extremities. Laboratory Studies: No new laboratory studies. She does have an elevated creatinine 1.64, BUN of 62 . Moderate renal insufficiency. Calcium 8.6. Magnesium 1.9, improved from 0.9. X-ray/imaging: No new x-rays or imaging. Progress Made With Physical, Occupational, And Speech Therapy: With physical therapy today, maximum assistance for bed mobility. Multiple ycr-or-ynlnr transfers done with moderate assistance. Stand t o pivot transfers, moderate to maximum assistance. She did have some drop of blood pressure. While sitting was 104/57, heart rate 68. Then standing, dropped to 96/50 and heart rate of 71. After she was seated again, 115/57, pulse of 71. stand transfer. While sitting 114/58, pulse of 71 . She did mobilize a wheelchair 50 feet and 75 feet with minimum to moderate assistance. With occup ational therapy, she did hand strengthening exercises using the yellow hand [employer] studies professor and did with tapia pervision. Maximum assistance for [id number] transfers with grab bar, only able to do 15 to 20 sec onds twice. Weightbearing to both lower extremities. With speech, she recalled 4 of 4 unrelated ite ms after 3-minute delay with minimum assistance. She required minimum assistance for working memory tasks for 4 units of information and had 90% accuracy. She did divergent naming tasks with 80% accur acy, minimum assistance required. Assessment And Plan: Ms. Padron is an 85-year-old patient in the rehabilitation unit with chronic hardeep stolic congestive heart failure. She has decreased mobility, decreased physical functioning. Has No rco for pain, Norvasc for blood pressure control, Eliquis for DVT risk reduction, Tylenol in addition for pain. She has Lipitor 10 mg at bedtime for dyslipidemia, Coreg 12.5 mg twice daily for __ blood pressure and heart rate control. She has vitamin B12 for energy level, ferrous sulfate for iron deficiency. She has lidocaine patch on board, Imodium for loose stools, melatonin for insomnia, Toprol-XL for heart rate control, midodrine for blood pressure support, Protonix for GE reflux, glen stigmine patch for dementia, tramadol scheduled for pain and that is in the morning. Plan: She will continue with physical, occupational, and speech therapy 3.5 hours, 5 of 7 days. She will continue her medications. It should be noted we will follow up her blood work in the morning t o look at her kidney function and determine her hydration level as she has chronic diastol ic CHF. LB/MODL Voice ID: [id number] Report ID: [id number]
[2025-06-30 06:15] LABS: Absolute Lymphocytes (CBC) 2.0 K/uL (0.7-4.9); Hematocrit 24.2 % (36.0-45.0); Hemoglobin 8.1 g/dL (12.0-15.0); MCH 32.0 pg (27.0-35.0); MCHC 33.4 g/dL (32.0-36.0); MCV 95.7 fL (80-100); MPV 9.6 fL (7.6-11.3); Nucleated RBC Absolute Count 0.0 (0-0); Nucleated Red Blood Cells % 0.1 % (0-0); RBC Red Blood Cell Count 2.53 M/uL (3.86-4.86); White Blood Count 5.80 thou/uL (4.3-10.9)
[2025-06-30 06:40] LABS: Albumin 2.3 g/dL (3.4-5.0); Anion Gap 7.3 mEq/L (5.0-15.0); BUN Blood Urea Nitrogen 66.0 mg/dL (7-18); Glucose Level 103.0 mg/dL (74-106); Magnesium 1.8 mg/dL (1.6-2.4); Potassium 4.3 mEq/L (3.5-5.1); Prealbumin 16.8 mg/dL (20-40)
[2025-06-30] MEDS: TRAMADOL HCL 50 MG TAB PO SCH (08:26)
[2025-06-30] MEDS: NA CHLORIDE 0.9% 500 ML IV ONE (10:52)
[2025-06-30] MEDS: NA CHLORIDE 0.9% 500 ML IV SCH ×2 (11:00→11:43)
[2025-06-30 11:50] LABS: Sqamous Epithelial <5 /HPF (None Seen); Urine Culture Reflex Order NOT NEEDED; Urine Microscopic Reflex YN ORDER UMIC; Urine WBC Clump Rare /HPF (None Seen)
--- NOTE | 2025-06-30 22:22 | PN ---
Date of Progress Note: 06/30/2025 Subjective: Ms. Padron is resting in bed following therapy sessions today. She denies any significan t shortness of breath doing well with therapy. She is encouraged to use incentive spirome try, however, today only was able to get about 250 cc. She was kind of because of pain in the back. She will have pain patches. Lidocaine patch applied to upper back, between the shoulder blades, and the lower back. She was somewhat sleepy after receiving tramadol this morning. __ she is alert, interactive, and following the tramadol, she becomes somewhat sleepy, sedated, but c ould be aroused and interactive. Review of Systems: No fevers, chills. Back pain is noted, upper and lower back. No rash. No other complaints such as depressive complaints, dermatological complaints. Physical Examination: Vital Signs: Blood pressure 141/62, pulse 62, respiratory rate 16, temperature 97.8, oxygen saturati on 98%. Her weight 137 pounds, height 5 feet 4 inches, BMI 23.5. General: Ms. Padron is somewhat in bed. HEENT: She is otherwise normocephalic, atraumatic. Neuro: She is easily aroused. She has no focal deficits in the lower extremities. Laboratory Studies: White blood cell count 5.8, hemoglobin 8.1, platelets 167. Sodium 141; potassiu m 4.3; chloride 108; carbon dioxide 30; BUN 66; creatinine is 1.84, which did increase today from 1.6 4 six days ago. She has . Calcium 9.1. Magnesium 1.8. Albumin 2.3, prealbumin is 16.8. It is noted she does have chronic renal insufficiency with creatinine around 2. It was done at [facility] 2 days ago, currently 1.84. The renal service will be consulted for further management. Progress Made With Physical And Occupational Therapy: With physical therapy, she mobilized wheelchai r 50 feet and 75 feet with minimum to moderate assistance. Bed mobility done with maximum assistance . With occupational therapy, she completed oral hygiene in bed with supervision, required extended t lalo to complete the task. She noted she was unable to move around her legs, however, ther e is range of motion and activity at this time. She had left leg exercises, right leg exercises, com pleted 10 steps, elbow flexion, and she had a 1 pound dowel barber as she did her exercises. Assessment And Plan: Ms. Padron is an 85-year-old patient in rehabilitation unit with congestive hear t failure, has chronic diastolic congestive heart failure. She does have decreased mobility, decreas ed physical functioning, chronic renal insufficiency, dyslipidemia. She has anemia, constipation. I n addition to cognitive impairment, which she is on Exelon patch and she is receiving IV hydration. Plan for continuing with physical and occupational therapy and may involve speech therapy for cogniti ve involvement and again consult the renal service to help with chronic renal insufficiency. She kirstie l continue all comorbid conditions 3 hours a day, 5 of 7 days. TRUDY/SANJIV Voice ID: [id number] Report ID: [id number]
[2025-07-01 07:08] VITALS: BP 121/56; TEMP 97.7
[2025-07-01] MEDS: CRANBERRY FRUIT EXTRACT 425 MG CAPSULE PO SCH (07:21)
[2025-07-01] MEDS: LIDOCAINE 4% PATCH TOP SCH (07:23)
[2025-07-01 12:05] LABS: Hematocrit 25.6 % (36.0-45.0); Hemoglobin 8.5 g/dL (12.0-15.0)
[2025-07-01] MEDS ORDERED: NYSTATIN PWDR 100000 UNIT/GM TOP SCH (20:00)
== END 2025-07-01 12:38 | DRG 292 ==
LOC: 5TH 15:51
PROVIDERS: ADMIT Psychiatry & Neurology Neurology with Special Qualifications in Child Neurology; ATTEND Psychiatry & Neurology Neurology with Special Qualifications in Child Neurology
DX: I13.0 Hypertensive heart and chronic kidney disease with heart failure and stage 1 through stage 4 chronic kidney disease, or unspecified chronic kidney disease (principal); I50.32 Chronic diastolic (congestive) heart failure; R53.1 Weakness; R53.81 Other malaise; I95.1 Orthostatic hypotension; N18.9 Chronic kidney disease, unspecified; E11.22 Type 2 diabetes mellitus with diabetic chronic kidney disease; F03.90 Unspecified dementia, unspecified severity, without behavioral disturbance, psychotic disturbance, mood disturbance, and anxiety; I25.10 Atherosclerotic heart disease of native coronary artery without angina pectoris; I48.91 Unspecified atrial fibrillation; D64.9 Anemia, unspecified; M54.50 Low back pain, unspecified; M54.89 Other dorsalgia; E78.5 Hyperlipidemia, unspecified; K59.00 Constipation, unspecified; K21.9 Gastro-esophageal reflux disease without esophagitis; F32.A Depression, unspecified; G47.00 Insomnia, unspecified; Z95.0 Presence of cardiac pacemaker
CPT/HCPCS: 36415; 71045; 74177; 80048; 80053; 81001; 81003; 82040; 82947; 83036; 83690; 83735; 83880; 84132; 84134; 84484; 85014; 85018; 85025; 85610; 92523; 93005; 94010; 97110; 97116; 97129; 97163; 97165; 97530; 97542; 99285; G0378; J2003; J2470; J3475; J7030; J7050; Q0162; Q9967